=== PATIENT | female | born 1955 | race Caucasian/White ===

== ENCOUNTER 2017-12-02 04:45 | Emergency (ER) | payer MEDICAID, SELFPAY ==
[2017-12-02] VITALS (7 sets, daily range): BP systolic 203–223; BP diastolic 98–112; PULSE 59–71; RESP 16–28; TEMP 36.1; O2SAT 94–97; BMI 26.9
--- NOTE | 2017-12-02 05:06 | EKG12_ITS ---
Test Reason : SOB Blood Pressure : / mmHG Vent. Rate : 062 BPM Atrial Rate : 062 BPM P-R Int : 164 ms QRS Dur : 082 ms QT Int : 434 ms P-R-T Axes : 039 061 062 degrees QTc Int : 440 ms Normal sinus rhythm Normal ECG Confirmed by AFIA KULKARNI, SHERIF ([id number]), senior editor ALKA HARTMAN ([id number]) on 12/05/2017 1:46:09 PM Referred By: MARJAN Confirmed By:SHERIF OREILLY MD
--- NOTE | 2017-12-02 05:11 | ED.VISSUMM ---
- ER Visit Summary Date of Service: 12/02/17 Chief Complaint: Shortness of breath History of Present Illness: The patient is a 62 F longtime smoking history. Since her last week she has been short of breath worse in the last 2 days. Denies any specific cough, fever or significant chest pain. No hemoptysis. No leg pain or swelling. She denies any history of COPD. She is not on O2. Physical Examination: Well-appearing older female. Vital signs blood pressure significantly elevated at 223/111. Otherwise vital signs are stable afebrile her pulse ox is 94% room air no signs of hypoxia. H EENT exam unremarkable. Neck nontender no JVD no lymphadenopathy. Lungs coarse breath sounds bilaterally. No rales or rhonchi. Few scattered wheezes. Prolonged respiratory phase. Heart regular rate and rhythm no murmur rate about 70. Abdomen soft and nontender. Normal bowel sounds no peritoneal signs. She is moving all 4 extremities. Calves are nontender without edema or cords. Neurologically she is awake alert no focal motor deficits moving all her extremities. Test Results: Chest x-ray shows chronic changes but no acute process. Normal cardiac silhouette and mediastinum. CBC normal. BMP shows a sodium 128 she has had low sodiums before. Otherwise unremarkable. Troponin normal. EKG sinus rhythm rate is 62 with no acute signs of CA or ischemia. Emergency Department Course and Treatment: Patient complaint dyspnea for approximately a week. Denies diagnoses for probably has underlying COPD from long-term smoking history. She will undergo cardiac evaluation along with a chest x-ray. She also received aerosols and prednisone and be reassessed. On repeat exam at 06 43 she is doing and feeling much better. She stated the aerosol helped her tremendously. Treatment Plan: Patient be discharged to home. I did explain to her with her long-term smoking history I suspect she has some underlying COPD that has never been diagnosed. She replaced on prednisone 40 mg a day for 7 days. She was given a dose here in the emergency department. Plus a Proventil inhaler as needed. She knows return if worse. Otherwise follow-up with her primary care physician. She also be written for nicotine patches to try to help her stop smoking. Disposition: Discharge Impression: Acute dyspnea secondary to new onset COPD Tobacco abuse Acute on chronic hypertension This note was generated with [employer] software. It may contain incorrect words, spelling, and punctuation that were not noted in review of the chart prior to signing ED Disposition - Plan for ED Patient: Chief Complaint: Shortness of Breath Referrals: Nate Gray MD [Primary Care Provider] -
[2017-12-02] MEDS: Albuterol 2.5 MG/3 ML VIAL.NEB. INHALATION (05:14)
[2017-12-02] MEDS: Ipratropium/Albuterol Sulfate 3 ML AMPUL.NEB INHALATION (05:14)
--- NOTE | 2017-12-02 05:35 | RAD_ITS ---
STUDY: X-RAY CHEST REASON FOR EXAM: Female, 62 years old. Shortness of breath for one week. TECHNIQUE: Frontal and lateral views of the chest. COMPARISON: None. FINDINGS: There is hyperinflation of the lungs consistent with chronic obstructive lung disease (COPD). There is no demonstrated pulmonary infiltrate. There is no demonstrated pleural abnormality. Normal size heart. Normal mediastinum and trisha. Normal visualized pulmonary arteries. There is atherosclerotic calcification of the aortic arch with tortuosity. There are diffuse degenerative changes of the visualized thoracic spine. Normal visualized ribs, clavicles, and shoulders. There is no demonstrated abnormality of the visualized soft tissue structures of the upper abdomen. RAD/Chest PA and Lateral IMPRESSION: Hyperexpansion of the lungs, suggesting COPD. No evidence for acute cardiopulmonary pathology. Electronically Signed: Erick Martinez MD at 6:28 EST , Service support ,
[2017-12-02 05:44] LABS: Absolute Lymphocyte Count 2.32 X10^3/ul (0.83-4.51); Absolute Neutrophil Count 6.1 X10^3/uL (2.0-7.7); Basophil# 0.03 X10^3/uL; Basophil% 0.3 % (0-1); Eosinophil# 0.28 X10^3/uL; Eosinophils% 2.8 % (0-5); Hematocrit 40.7 % (37-47); Hemoglobin 13.9 g/dl (12.0-15.0); Lymphocyte # 2.32 X10^3/ul (4.0); Lymphocyte % 23.6 % (19-41); Mean Corp Hgb Conc 34.2 g/gl (32-36); Mean Corpuscular Hgb 32.4 pg (27.0-32.0); Mean Corpuscular Volume 94.9 fL (81-99); Mean Platelet Vol. 9.7 fl (6.2-12.0); Monocyte# 1.06 X10^3/uL; Monocyte% 10.8 % (0-10); Neutrophil # 6.13 X10^3/uL (2.7-7.7); Neutrophil % 62.4 % (47-70); Platelet Count 263 K/mm3 (150-450); RBC Distribution Width CV 13.1 % (11.6-14.6); RBC Distribution Width SD 45.5 fl (35.1-43.9); Red Blood Count 4.29 M/mm3 (4.2-5.4); White Blood Count 9.8 K/mm3 (4.4-11.0)
[2017-12-02 05:47] LABS: POSITIVE COUNT NO; POSITIVE DIFFERENTIAL NO; POSITIVE MORPHOLOGY NO
[2017-12-02 06:09] LABS: Anion Gap 8 (5-15); BUN 7 mg/dL (7-18); BUN/Creat Ratio 11.6 RATIO (10-20); Calcium,Total 8.5 mg/dL (8.5-10.1); Chloride 91 mmol/L (98-107); Creatinine, Serum 0.61 mg/dL (0.55-1.02); EST Glomerular Filtration Rate 106 mL/min (>60); Est Glom Filt Rate - Afr Amer 129 mL/min (>60); Estimated Creatinine Clearance 68.69 ml/min; Glucose 113 mg/dL (74-106); Potassium 4.6 mmol/L (3.5-5.1); Sodium Level 128 mmol/L (136-145)
--- NOTE | 2017-12-02 06:51 | ED.DEP ---
ED Disposition - Plan for ED Patient: Disposition: Home or Assisted Living Chief Complaint: Shortness of Breath Instructions: ED COPD Flare Prescriptions: Albuterol Sulfate [Proventil Hfa] 6.7 gm IH Q2H PRN PRN #1 [id number] PRN Reason: Wheezing Nicotine [Nicotine Patch] 1 ea TD PRN PRN #20 patch.[id number] PRN Reason: Smoking Cessation Prednisone [Deltasone] 40 mg PO DAILY 7 Days tab Referrals: Nate Gray MD [Primary Care Provider] - 3-5 Days if not improving Additional Instructions: Absolutely need to stop smoking. This will help your breathing. You have early signs of COPD or chronic obstructive pulmonary disease. This should improve if you stop smoking. Prednisone 40 mg a day for the next 7 days to help the inflammation in your lungs and is to improve your breathing. Also 1-2 puffs on your inhaler as needed. Return to the ER if you are feeling worse or follow-up your primary care physician as needed.
== END 2017-12-02 07:05 | disposition home or self-care (01) ==
PROVIDERS: Emergency Provider Emergency Medicine; Family Provider Internal Medicine; PCP Internal Medicine
DX: J44.1 Chronic obstructive pulmonary disease with (acute) exacerbation (principal); I73.9 Peripheral vascular disease, unspecified; I10 Essential (primary) hypertension; F17.200 Nicotine dependence, unspecified, uncomplicated; Z79.899 Other long term (current) drug therapy
CPT/HCPCS: 71046; 80048; 84484; 85025; 93005; 94640; 99284

== ENCOUNTER 2019-05-28 21:46 | Emergency (ER) | payer MEDICAID, SELFPAY ==
[2019-05-28 21:46] VITALS: BP 164/106; PULSE 109; RESP 16; TEMP 36.8; O2SAT 97; BMI 24.0
--- NOTE | 2019-05-28 21:52 | EKG12_ITS ---
Test Reason : SOB Blood Pressure : / mmHG Vent. Rate : 108 BPM Atrial Rate : 108 BPM P-R Int : 158 ms QRS Dur : 068 ms QT Int : 310 ms P-R-T Axes : 051 062 037 degrees QTc Int : 415 ms Sinus tachycardia Possible Left atrial enlargement Borderline ECG Confirmed by GIL TAPIA ([id number]), continuity editor ANNEL QUIROS ([id number]) on 06/02/2019 1:42:28 PM Referred By: MARJAN Confirmed By:GIL TAPIA
--- NOTE | 2019-05-28 22:08 | ED.VISSUMM ---
- ER Visit Summary Date of Service: 05/28/19 Chief Complaint: Left chest and rib cage pain History of Present Illness: The patient is a 64 F history of COPD and had broken ribs from trauma from a fall in January and developed a pneumothorax had to be intubated and was treated at [facility] in [place]. Patient states she woke up this morning she had left-sided chest pain primarily the lower ribs and upper abdomen and felt like she may have collapsed her lung again. She denies any fevers. No DVT or PE history. No hemoptysis. No significant cough. Worse with movement or breathing. Physical Examination: Vital signs are stable she is afebrile. She does not look septic or toxic. Her pulse ox is 97% on room air. She is not hypoxic. H EENT exam unremarkable. Moist week's membranes. Neck nontender no JVD no lymphadenopathy. Lungs shallow respirations bilaterally. But no appreciated rales rhonchi or wheezing. Heart regular rhythm rate about 100 no murmur. Chest wall there is diaphoresis, shortness of breath left lower rib cage tenderness but no ecchymosis or bruising. No subcu air crepitance. Abdomen soft mild left upper quadrant tenderness. No rebound or guarding. No rigidity. No signs of obstruction. No hernia or mass. No pulsatile mass. Sounds. Patient moving all 4 extremities. Is equal symmetrical radial pulses. 5-5 chauffeur strength. Dorsi plantarflexion intact. Calves are nontender without edema or cords. Logically she is awake alert with no focal motor deficits. Test Results: Chest x-ray shows old left-sided rib fractures but no acute process. No pneumonia or pneumothorax. Normal cardiac silhouette. EKG is a sinus tachycardia rate of 108 with no acute signs of SC or ischemia. No acute change from prior EKGs. CBC shows a white count of 13. Hemoglobin 12. No bands. Electrolytes show sodium 126. Resection of the creatinine. Liver lipase normal. Troponin normal. Emergency Department Course and Treatment: Pt. with atypical left-sided chest and upper abdominal pain that she awoke with this morning. Diffuse differential diagnosis including things such as a pneumothorax cirrhosis, cardiac or respiratory etiology or even upper abdominal pathology. Treated with morphine and Zofran for pain. Repeat exam at 2319 PM patient still complaining of chest and upper abd pain. This does not appear to be cardiac in nature. I think less likely but potentially could be a PE. The abdominal right she is had no recent falls or trauma to her abdomen. I am going to obtain CT scan of the cheat abd abdomen / pelvis. Pt will be checked out to overnight physician. If she is doing well and those are negative she can be comfortably discharged home more than likely. Treatment Plan: [] Disposition: Pending CAT scan results. Impression: Dyspnea, chest pain abdominal pain of uncertain etiology. Further test pending This note was generated with [employer] dictation software. It may contain incorrect words, spelling, and punctuation that were not noted in review of the chart prior to signing ED Disposition - Plan for ED Patient: Referrals: Nate Gray MD [Primary Care Provider] -
[2019-05-28] MEDS: Ondansetron 4 MG/2 ML Vial IV (22:16)
[2019-05-28] MEDS: morphine 8 MG/ML Syringe 6 MG IV (22:16)
[2019-05-28 22:18] LABS: Absolute Lymphocyte Count 3.97 X10^3/uL (0.83-4.51); Absolute Neutrophil Count 8.2 X10^3/uL (2.0-7.7); Basophil# 0.04 X10^3/uL; Basophil% 0.3 % (0-1); Eosinophil# 0.36 X10^3/uL; Eosinophils% 2.7 % (0-5); Hematocrit 35.6 % (37-47); Hemoglobin 12.3 g/dL (12.0-15.0); Lymphocyte # 3.97 X10^3/ul (4.0); Lymphocyte % 29.5 % (19-41); Mean Corp Hgb Conc 34.6 g/dL (32-36); Mean Corpuscular Hgb 31.1 pg (27.0-32.0); Mean Corpuscular Volume 90.1 fL (81-99); Mean Platelet Vol. 9.2 fl (6.2-12.0); Monocyte# 0.87 X10^3/uL; Monocyte% 6.5 % (0-10); NRBC Flagged by Analyzer 0 % (0-5); Neutrophil # 8.17 X10^3/uL (2.7-7.7); Neutrophil % 60.6 % (47-70); Platelet Count 291 K/mm3 (150-450); RBC Distribution Width SD 50.4 fl (35.1-43.9); Red Blood Count 3.95 M/mm3 (4.2-5.4); White Blood Count 13.5 K/mm3 (4.4-11.0)
--- NOTE | 2019-05-28 22:20 | RAD_ITS ---
STUDY: X-RAY CHEST REASON FOR EXAM: Female, 64 years old. Chest pain and shortness of breath TECHNIQUE: PA and lateral COMPARISON: December 02, 2017 FINDINGS: The lungs are clear and expanded. There is no demonstrated pleural abnormality. Normal size heart. Normal mediastinum and trisha. Normal visualized pulmonary arteries. Tortuous mildly calcified aortic arch and descending thoracic aorta. Dorsal spine demonstrates moderate spondylosis. Normal visualized clavicles, and shoulders. Acute mildly displaced fractures of the left seventh eighth and ninth ribs There is no demonstrated abnormality of the visualized soft tissue structures of the upper abdomen. RAD/Chest PA and Lateral IMPRESSION: Acute mildly displaced fractures of the left seventh through ninth ribs without associated pneumothorax Electronically Signed: Kris Oneill MD at 22:33 EDT , Service support ,
[2019-05-28 22:30] VITALS: O2SAT 98
[2019-05-28 22:40] LABS: AST(SGOT) 13 U/L (15-37); Alanine Aminotransfer ALT/SGPT 19 U/L (13-56); Albumin, Serum 4.2 g/dL (3.2-5.0); Alkaline Phosphatase 97 U/L (45-117); Anion Gap 6 (5-15); BUN 19 mg/dL (7-18); BUN/Creat Ratio 18.8 RATIO (10-20); Bilirubin, Direct 0.07 mg/dL (0.00-0.30); Calcium,Total 8.3 mg/dL (8.5-10.1); Chloride 94 mmol/L (98-107); Creatinine, Serum 1.01 mg/dL (0.55-1.02); EST Glomerular Filtration Rate 59 mL/min (>60); Est Glom Filt Rate - Afr Amer 71 mL/min (>60); Estimated Creatinine Clearance 44.51 ml/min; Globulin 3.2 g/dL (2.2-4.2); Glucose 89 mg/dL (74-106); Lipase 221 U/L (73-393); Potassium 4.1 mmol/L (3.5-5.1); Protein, Total 7.4 g/dL (6.4-8.2); Sodium Level 126 mmol/L (136-145)
[2019-05-28] MEDS: Ipratropium/Albuterol Sulfate 3 ML AMPUL.NEB INHALATION (22:42)
[2019-05-28 22:43] VITALS: PULSE 92; RESP 18
[2019-05-28 23:06] VITALS: BP 120/78; PULSE 77; RESP 16; O2SAT 97
[2019-05-28 23:10] VITALS: BP 107/71; PULSE 91; RESP 17; O2SAT 94
--- NOTE | 2019-05-28 23:18 | CT_ITS ---
HISTORY: ABD PAIN, CP, DYSPNEA EXAMINATION: CTA Chest W IV Contrast TECHNIQUE: Helically acquired images were obtained of the chest following IV contrast as per pulmonary angiogram protocol with 3D reconstructions. A radiation dose optimization technique was used for this scan. IV Contrast dosage and agent: 100 Isovue 370 COMPARISON: 2 view chest 05/28/2019 FINDINGS: The main, segmental, and visualized subsegmental pulmonary arteries show normal opacification and appearance. No PE. Thoracic aorta is atherosclerotic and normal in caliber without evidence of aneurysm or dissection. No pericardial effusion. No lymphadenopathy. Mild centrilobular emphysema. Lingular segment minor atelectasis or scarring. Bibasilar mild pleural parenchymal scarring, worse on the left. No pulmonary consolidation. No pleural effusion. No pneumothorax. Bones: Mildly displaced fractures of the axillary left seventh through 11th ribs. Abdomen: Large subcapsular splenic hematoma together with small free fluid within the abdomen in keeping with hemoperitoneum related to splenic injury. CT/CTA Chest W/WO Contrast IMPRESSION: 1. Fracture of the axillary left seventh through 11th ribs with large subcapsular splenic hematoma together with small free abdominal fluid compatible with hemoperitoneum related to splenic injury. 2. No pneumothorax or pleural fluid collection. No PE or thoracic aortic injury. 3. Mild centrilobular emphysema. Lingular segment and bibasilar mild scarring. Individualized dose optimization techniques were used for this CT. at 0031 Reported and signed by: Farzad Westfall MD Electronically Signed: Farzad Westfall, at 0:29 EDT Tel , Service support ,
--- NOTE | 2019-05-28 23:18 | CT_ITS ---
HISTORY: ABD PAIN, CP, DYSPNEA EXAMINATION: CT Abdomen And Pelvis W/ Contrast TECHNIQUE: Helically acquired images were obtained of the abdomen and pelvis following IV contrast. A radiation dose optimization technique was used for this scan. IV Contrast dosage and agent: 100 Isovue 370 Oral contrast: None. COMPARISON: 07/26/2015 FINDINGS: Lower thorax: Mildly displaced fractures of the axillary left seventh through 11th ribs. No pneumothorax or significant pleural fluid collection. Large subcapsular splenic hematoma. Small free fluid within the abdomen and pelvis compatible with hemoperitoneum related to splenic injury. No splenic laceration is visualized. Normal liver, pancreas, gallbladder, and biliary system. Both kidneys are normal in position. Bilateral renal opacification without evidence of renal parenchymal injury or suspicious renal lesion. Bilateral renal cortical cysts. Central vascular calcifications of the left kidney. The adrenal glands show no suspicious enlargement. Abdominal aorta is diffusely atherosclerotic as normal in caliber. No retroperitoneal lymph node enlargement. GI tract: No obstruction. No pneumoperitoneum. Pelvis: Small free pelvic fluid compatible with hemoperitoneum. Poor distention of the urinary bladder. Bones: Separate from the left ribs, no fracture seen. Normal lumbar vertebral alignment. Ventral abdominal Wall: Previous ventral wall hernia repair with graft and multiple metallic tacks in place. No recurrent hernia seen. CT/Abdomen/Pelvis W IV Cont ONLY IMPRESSION: 1. Mildly displaced fractures of the axillary left seventh through 11th ribs with large subcapsular splenic hematoma together with small free fluid within the abdomen and pelvis compatible with hemoperitoneum. 2. No additional major organ injury seen. No pneumoperitoneum or pneumothorax. 3. Ventral wall hernia repair and additional chronic changes, as above. Comment: Abnormal CT findings telephoned to Dr. Stockton emergency room physician upon exam completion. Individualized dose optimization techniques were used for this CT. at 0046 Reported and signed by: Farzad Westfall MD N.B. : The above information has been verbally conveyed by Farzad Westfall to Dr. Kath MD, on 05/29/2019 00:44:46 (ET). Electronically Signed: Farzad Khoi, at 0:45 EDT Tel , Service support ,
[2019-05-28] MEDS: 0.9% Normal Saline 1,000 ML 999 ML IV (23:59)
[2019-05-29] MEDS: Morphine 4 MG/ML Syringe IV (00:01)
[2019-05-29 01:39] VITALS: BP 99/81; PULSE 81; RESP 21; O2SAT 97
[2019-05-29] MEDS: fentaNYL 100 MCG/2 ML Ampul 50 MCG IV (01:40)
== END 2019-05-29 01:58 | disposition short-term general hospital (02) ==
PROVIDERS: Emergency Medicine; Emergency Provider Emergency Medicine; Family Provider Internal Medicine; PCP Internal Medicine
DX: D73.5 Infarction of spleen (principal); K66.1 Hemoperitoneum; J44.9 Chronic obstructive pulmonary disease, unspecified; Z79.899 Other long term (current) drug therapy; Z72.0 Tobacco use
CPT/HCPCS: 71046; 71275; 74177; 80048; 80076; 83690; 84484; 85025; 93005; 94640; 96361; 96374; 96375; 96376; 99285; J7030; Q9967; A4216; J2405

== ENCOUNTER 2019-06-06 10:45 | Emergency (ER) | payer MEDICAID, SELFPAY ==
[2019-06-06 10:47] VITALS: BP 177/118; PULSE 111; RESP 23; TEMP 36.5; O2SAT 95; BMI 26.3
[2019-06-06 11:00] VITALS: BP 176/102; PULSE 112; RESP 21; O2SAT 94
--- NOTE | 2019-06-06 11:05 | CT_ITS ---
STUDY: CT ABDOMEN AND PELVIS WITHOUT CONTRAST REASON FOR EXAM: Female, 64 years old. Left upper quadrant pain. History of prior multiple abdominal surgeries. RADIATION DOSAGE (If Supplied By Facility): CTDIvol = ( 7.04 ) mGy, DLP = ( 337.67 ) mGycm TECHNIQUE: Transaxial images were obtained from the dome of the diaphragm to the symphysis pubis without oral contrast, and without intravenous contrast. Sagittal and coronal images were reconstructed. Individualized dose optimization techniques were used for this CT. COMPARISON: Comparison is made with prior study dated May 28, 2019. FINDINGS: There are new small bilateral pleural effusions with bibasilar atelectasis and/or infiltrate worse on the right side. Small pericardial effusion. Coronary artery calcification. Normal liver. Normal gallbladder and extrahepatic biliary system. There is moderate splenomegaly. Findings is suggestive of large perisplenic hematoma although without intravenous contrast ministration it is difficult to assess. The spleen is larger in size as compared to prior study. There is compression of the stomach. There appears to be metallic embolic material within the splenic vein. Clinical correlation is recommended. Normal pancreas. Normal bilateral adrenal glands. Normal right kidney. Normal left kidney. Normal visualized stomach. Normal small intestine. Normal colon. There are surgical clips in the region of the appendix consistent with a prior appendectomy. There is diffuse atherosclerotic calcification of the abdominal aorta, without a demonstrated aneurysm. Normal inferior vena cava. Normal retroperitoneum. Normal urinary bladder. There appears to be a moderate amount blood within the pelvis. This has increased as compared to prior study. There is evidence of prior anterior abdominal wall hernia repair with a large mesh. There are degenerative changes of the visualized lumbar spine. Stable nondisplaced fractures of the left seventh through 11th ribs. CT/Abdomen/Pelvis without Cont IMPRESSION: Findings suggestive of progressive splenic hematoma and possible laceration of the spleen although without intravenous contrast ministration, this is difficult to assess. Findings suggestive of a metallic embolization material within the splenic vein. Moderate amount of blood in the pelvis. Electronically Signed: Deondre Garcia, at 12:45 EDT , Service support ,
--- NOTE | 2019-06-06 11:06 | ED.DCSUM_ITS ---
- ER Visit Summary Date of Service: 06/06/19 Chief Complaint: Left upper quadrant abdominal pain History of Present Illness: The patient is a 64 F who has left upper quadrant abdominal pain. The patient was discharged from [facility] 2 days ago after staying 1 week after finding she had a splenic hematoma. She had coiling done at that time. She was given 4 units of blood there due to anemia. She continues to have pain in the left upper quadrant. Nothing makes it better or worse. Denies any new trauma. She does admit to a decreased appetite. Denies nausea, vomiting or diarrhea. No urinary symptoms. She declined any pain medications going home so she has not taken anything. Physical Examination: Vital signs reviewed. HEENT exam unremarkable. Heart is regular rate and rhythm without murmurs. Lungs are clear to auscultation. Abdomen is soft with tenderness in the left upper quadrant. There is no guarding or rebound tenderness. Extremities reveal no edema. Skin exam normal. Neurologic exam normal. Test Results: EKG is sinus tachycardia with a rate of 115. PVCs noted. There are nonspecific ST and T wave changes. Hemoglobin is 10.3, AST 48. CAT scan reveals a perisplenic hematoma status post coiling. Emergency Department Course and Treatment: The patient's hemoglobin 2 days ago when she left [facility] was 8.5. The CAT scan did remark that the hematoma does appear slightly bigger, but I do not see any active bleeding. This in combination with her rising hemoglobin leads me to believe that she has no active bleeding. She is hemodynamically stable. I feel that she is safe for discharge. She has Tylenol and tramadol that she can take at home. She will follow-up with her doctors at [facility]. Treatment Plan: [] Disposition: Discharge Impression: Splenic hematoma, subsequent visit This note was generated with [employer] dictation software. It may contain incorrect words, spelling, and punctuation that were not noted in review of the chart prior to signing ED Disposition - Plan for ED Patient: Referrals: Nate Gray MD [Primary Care Provider] -
[2019-06-06] MEDS: fentaNYL 100 MCG/2 ML Ampul 50 MCG IV (11:14)
[2019-06-06 11:30] LABS: Absolute Lymphocyte Count 1.75 X10^3/uL (0.83-4.51); Absolute Neutrophil Count 9.3 X10^3/uL (2.0-7.7); Basophil# 0.05 X10^3/uL; Basophil% 0.4 % (0-1); Eosinophils% 2.3 % (0-5); Hematocrit 31.5 % (37-47); Hemoglobin 10.3 g/dL (12.0-15.0); Lymphocyte # 1.75 X10^3/ul (4.0); Lymphocyte % 13.5 % (19-41); Mean Corp Hgb Conc 32.7 g/dL (32-36); Mean Corpuscular Hgb 29.9 pg (27.0-32.0); Mean Corpuscular Volume 91.6 fL (81-99); Mean Platelet Vol. 8.5 fl (6.2-12.0); Monocyte# 1.41 X10^3/uL; Monocyte% 10.9 % (0-10); NRBC Flagged by Analyzer 0.2 % (0-5); Neutrophil # 9.31 X10^3/uL (2.7-7.7); Neutrophil % 72.1 % (47-70); Platelet Count 632 K/mm3 (150-450); RBC Distribution Width CV 15.9 % (11.6-14.6); RBC Distribution Width SD 52.5 fl (35.1-43.9); Red Blood Count 3.44 M/mm3 (4.2-5.4); White Blood Count 12.9 K/mm3 (4.4-11.0)
[2019-06-06 11:45] LABS: ALB/GLOB Ratio 0.8 RATIO (0.9-2.4); AST(SGOT) 48 U/L (15-37); Alanine Aminotransfer ALT/SGPT 34 U/L (13-56); Albumin, Serum 3.3 g/dL (3.2-5.0); Alkaline Phosphatase 104 U/L (45-117); Anion Gap 8 (5-15); BUN 9 mg/dL (7-18); BUN/Creat Ratio 12.8 RATIO (10-20); Chloride 101 mmol/L (98-107); EST Glomerular Filtration Rate 89 mL/min (>60); Est Glom Filt Rate - Afr Amer 108 mL/min (>60); Estimated Creatinine Clearance 58.32 ml/min; Globulin 4.2 g/dL (2.2-4.2); Glucose 95 mg/dL (74-106); Potassium 3.9 mmol/L (3.5-5.1); Protein, Total 7.5 g/dL (6.4-8.2); Sodium Level 136 mmol/L (136-145)
[2019-06-06] MEDS: Morphine 4 MG/ML Syringe IV (12:17)
[2019-06-06 12:23] VITALS: PULSE 109; RESP 22
[2019-06-06] MEDS: Ipratropium 0.5 MG/2.5 ML SOLUTION INHALATION (12:23)
[2019-06-06 12:35] VITALS: BP 160/102; PULSE 107; RESP 28; O2SAT 93
--- NOTE | 2019-06-06 13:04 | ED.DEP ---
ED Disposition - Plan for ED Patient: Disposition: Home or Assisted Living Instructions: Hematoma Referrals: Nate Gray MD [Primary Care Provider] -
[2019-06-06 13:11] VITALS: BP 140/105; PULSE 107; RESP 22; O2SAT 93
== END 2019-06-06 13:12 | disposition home or self-care (01) ==
PROVIDERS: Emergency Provider Emergency Medicine; Family Provider Internal Medicine; PCP Internal Medicine
DX: S36.029D Unspecified contusion of spleen, subsequent encounter (principal); X58.XXXD Exposure to other specified factors, subsequent encounter; I49.3 Ventricular premature depolarization; K21.9 Gastro-esophageal reflux disease without esophagitis; I10 Essential (primary) hypertension; E78.00 Pure hypercholesterolemia, unspecified; Z86.2 Personal history of diseases of the blood and blood-forming organs and certain disorders involving the immune mechanism; Z79.899 Other long term (current) drug therapy; Z72.0 Tobacco use
CPT/HCPCS: 74176; 80053; 85025; 86850; 86900; 86901; 93005; 94640; 96374; 96375; 99284

== ENCOUNTER 2019-06-10 10:48 | Emergency (ER) | payer MEDICAID, SELFPAY ==
[2019-06-10 10:49] VITALS: BP 169/83; PULSE 113; RESP 20; TEMP 36.6; O2SAT 96; BMI 26.4
[2019-06-10 10:51] VITALS: BP 153/68; PULSE 107; RESP 18; TEMP 37.2; O2SAT 96
--- NOTE | 2019-06-10 10:58 | CT_ITS ---
STUDY: CT ABDOMEN AND PELVIS WITH CONTRAST REASON FOR EXAM: Female, 64 years old. Left-sided abdominal pain. RADIATION DOSAGE (If Supplied By Facility): CTDIvol = ( 11.52 ) mGy, DLP = ( 630.18 ) mGycm TECHNIQUE: Transaxial images were obtained from the dome of the diaphragm to the symphysis pubis without oral contrast. 100cc IV Isovue 300 was administered. Sagittal and coronal images were reconstructed. Individualized dose optimization techniques were used for this CT. COMPARISON: Comparison is made with prior examination of June 06, 2019. FINDINGS: Minimal bilateral pleural effusions with underlying infiltration and/or atelectasis. Small pericardial effusion. Stable nondisplaced left seventh through 11th rib fractures. This is unchanged. Coronary artery calcification. Normal liver. The gallbladder is distended. Findings in keeping with a large subacute perisplenic hematoma. There is a 2.9 cm x 1.7 cm cystic density in the inferior pole of the spleen. Metallic embolic coils are seen in the splenic vein. Normal pancreas. Normal bilateral adrenal glands. Normal right kidney. 2.3 cm cyst in the superior aspect of the left kidney. Normal visualized stomach. Normal small intestine. Diffuse colonic diverticulosis. The appendix is visualized and appears normal. There is diffuse atherosclerotic calcification of the abdominal aorta, without a demonstrated aneurysm. Normal inferior vena cava. Normal retroperitoneum. Normal urinary bladder. Dense fluid is seen in the pelvis suggestive of a possible blood in the pelvis. This is unchanged. There is evidence of a prior anterior abdominal wall hernia repair with mesh seen. There are diffuse degenerative changes of the visualized lumbar spine. CT/Abdomen/Pelvis W IV Cont ONLY IMPRESSION: Essentially stable examination. Electronically Signed: Deondre Garcia, at 12:30 EDT , Service support ,
--- NOTE | 2019-06-10 10:59 | ED.VIS.GEN ---
History of Present Illness Chief Complaint: Abd Pain Informant: Patient Onset: Yesterday Context: Gradual Onset Timing: Continuous Current Severity: Moderate Maximum Severity: Severe Narrative: The patient presents to the emergency department with left flank pain. The patient does have a complex medical history. She was recently found to have a splenic laceration and splenic hematoma. She was transferred to [facility]. She underwent coil embolization. She was discharged home. She states over the past 2 days, her pain is just worsened. She states that no matter which when she moves, she cannot get comfortable. She is been taking tramadol with little improvement. She denies being short of breath. She denies any fevers or chills. She denies any other systemic symptoms. She is not on anticoagulants. Prior similar symptoms: Yes Recent Illness/Hospitalization: No Past Medical History - Allergies and Home Meds Allergies/Adverse Reactions: Allergies amlodipine Allergy (Verified 06/10/19 10:52) Unknown clonidine Allergy (Verified 06/10/19 10:52) Unknown codeine Adverse Reaction (Verified 06/10/19 10:52) Nausea Primary Care Physician: Nate Gray MD [Primary Care Provider] - Prior records reviewed: Yes Past Medical History: - Surgical History: - - sigmoid colectomy with splenic flexure mobilization and ileostomy creation November 11, 2005. Colonoscopy with dilation of anastomosis April 17, 2006. Ileostomy takedown-September 21, 2006. Repair of ventral hernia July 22, 2007, hernia repair Smoking Status: Current every day smoker Alcohol: None Drugs: None - Family History Paternal Family History: Reports: No pertinent history Maternal Family History: Reports: No pertinent history Review of Systems General: Denies: Chills, Fever, Sweats Eyes: Denies: Visual changes - bilaterally, Diplopia ENT: Denies: Rhinorrhea, Sore throat Cardiovascular: Denies: Chest pain, Palpitations Respiratory: Denies: Dyspnea, Cough, Dyspnea on exertion Gastrointestinal: Reports: Abdominal pain. Denies: Nausea, Vomiting, Diarrhea, Melena, Hematochezia Genitourinary: Denies: Dysuria, Hematuria, Frequency Musculoskeletal: Denies: Back pain, Extremity Pain Skin: Denies: Rash, Wounds Neurological: Denies: Headache, Weakness, Numbness Physical Exam Vital Signs/Narrative: Vital Signs Temp Pulse Resp BP Pulse Ox 06/10/19 10:49 98 F 113 H 20 H 169/83 H 96 Inital Vital Signs reviewed: Yes General: Well nourished, Well developed, No Acute Distress Head: Normocephalic, Atraumatic Eyes: Perrl, EOMI ENT: Moist mucous membranes, No rhinorrhea Neck: Supple, Nontender Cardiovascular: Regular rate, Regular rhythm, No murmurs Respiratory: No distress, CTA bilaterally, Chest nontender Abdomen: Soft, Nondistended, Normal bowel sounds, Tender. Negative for: Guarding, Rebound tenderness Back: Nontender, Normal Inspection Extremities: Nontender, No edema Skin: Normal color, No rash Neurological: Alert, Oriented x3, Cranial nerves II-XII grossly intact, Normal Strength, Normal Sensation Psychological: Normal affect, Normal Mood Diagnostic/Tx/Re-eval Clinical Impression(s) from Imaging Studies Abdomen/Pelvis CT 06/10/19 10:58 IMPRESSION: Essentially stable examination. Electronically Signed: Deondre Jenniferkathiepoornima, at 12:30 EDT , Service support , Abnormal Lab Results 06/10/19 06/10/19 11:05 11:05 WBC 15.8 H RBC 3.68 L Hgb 11.0 L Hct 33.6 L MCV 91.3 MCH 29.9 MCHC 32.7 RDW Std Deviation 51.8 H RDW Coeff of Renea 15.7 H Plt Count 787 H* MPV 8.4 Immature Gran % (Auto) 0.400 Neut % (Auto) 77.2 H Lymph % (Auto) 13.8 L [place] % (Auto) 6.3 Eos % (Auto) 1.8 Baso % (Auto) 0.5 Absolute Neuts (auto) 12.2 H Absolute Lymphs (auto) 2.18 Nucleated RBC % 0 Diff Path Review May foll Platelet Estimate MOD INC Polychromasia RARE Anisocytosis 1+ Spherocytes RARE H Target Cells 1+ Sodium 134 L Potassium 4.6 Chloride 103 Carbon Dioxide 26.0 Anion Gap 5 BUN 13 Creatinine 0.88 Estim Creat Clear Calc 46.39 Est GFR (MDRD) Af Amer 83 Est GFR (MDRD) Non-Af 68 BUN/Creatinine Ratio 14.7 Glucose 92 Calcium 9.5 Total Bilirubin 0.60 AST 29 ALT 50 Alkaline Phosphatase 149 H Total Protein 8.1 Albumin 3.3 Globulin 4.8 H Albumin/Globulin Ratio 0.7 L Lipase 229 - Medical Decision Making The patient presents with worsening pain in her left upper quadrant of her back. She denies any fever or chills. I did want to rule out rebleed given her recent splenic hematoma and coiling. The patient underwent CT imaging. This is basically unchanged. There is no evidence of abscess. There is no evidence of active bleeding. Her hemoglobin is stabilized. Her major complaint is pain. Her pain will be addressed as an outpatient. At this point, I do feel that she is safe for outpatient therapy. She does have follow-up in place with her surgeon. She will be discharged home. Discharge 1. Splenic hematoma ED Disposition - Plan for ED Patient: Instructions: ABDOMINAL TRAUMA, Blunt (benign) Prescriptions: Oxycodone HCl/Acetaminophen [Percocet 5/325] 1 tab PO Q6H PRN PRN 3 Days #12 tab PRN Reason: Pain Prescription Printed Ondansetron [Zofran Odt] 4 mg PO Q8H PRN PRN #10 tab PRN Reason: Nausea Prescription Printed Referrals: Nate Gray MD [Primary Care Provider] -
[2019-06-10] MEDS: 0.9% Normal Saline 1,000 ML 1000 ML IV (11:10)
[2019-06-10] MEDS: Ondansetron 4 MG/2 ML Vial IV (11:11)
[2019-06-10] MEDS: Morphine 4 MG/ML Syringe IV (11:11)
[2019-06-10 11:15] LABS: Absolute Lymphocyte Count 2.18 X10^3/uL (0.83-4.51); Absolute Neutrophil Count 12.2 X10^3/uL (2.0-7.7); Basophil# 0.08 X10^3/uL; Basophil% 0.5 % (0-1); Eosinophil# 0.28 X10^3/uL; Eosinophils% 1.8 % (0-5); Hematocrit 33.6 % (37-47); Lymphocyte # 2.18 X10^3/ul (4.0); Lymphocyte % 13.8 % (19-41); Mean Corp Hgb Conc 32.7 g/dL (32-36); Mean Corpuscular Hgb 29.9 pg (27.0-32.0); Mean Corpuscular Volume 91.3 fL (81-99); Mean Platelet Vol. 8.4 fl (6.2-12.0); Monocyte% 6.3 % (0-10); NRBC Flagged by Analyzer 0 % (0-5); Neutrophil # 12.23 X10^3/uL (2.7-7.7); Neutrophil % 77.2 % (47-70); POSITIVE COUNT YES; RBC Distribution Width CV 15.7 % (11.6-14.6); RBC Distribution Width SD 51.8 fl (35.1-43.9); Red Blood Count 3.68 M/mm3 (4.2-5.4); White Blood Count 15.8 K/mm3 (4.4-11.0)
[2019-06-10 11:16] LABS: Differential Indicated SCAN CRITERIA MET
[2019-06-10 11:22] LABS: Platelet Count 787 K/mm3 (150-450)
--- NOTE | 2019-06-10 11:22 | ED.RN ---
PLT [id number] CALLED FROM [address] LAB. DR HAMPTON AWARE
[2019-06-10 11:29] LABS: ALB/GLOB Ratio 0.7 RATIO (0.9-2.4); AST(SGOT) 29 U/L (15-37); Alanine Aminotransfer ALT/SGPT 50 U/L (13-56); Albumin, Serum 3.3 g/dL (3.2-5.0); Alkaline Phosphatase 149 U/L (45-117); Anion Gap 5 (5-15); BUN 13 mg/dL (7-18); BUN/Creat Ratio 14.7 RATIO (10-20); Calcium,Total 9.5 mg/dL (8.5-10.1); Chloride 103 mmol/L (98-107); Creatinine, Serum 0.88 mg/dL (0.55-1.02); EST Glomerular Filtration Rate 68 mL/min (>60); Est Glom Filt Rate - Afr Amer 83 mL/min (>60); Estimated Creatinine Clearance 46.39 ml/min; Globulin 4.8 g/dL (2.2-4.2); Glucose 92 mg/dL (74-106); Lipase 229 U/L (73-393); Potassium 4.6 mmol/L (3.5-5.1); Protein, Total 8.1 g/dL (6.4-8.2); Sodium Level 134 mmol/L (136-145)
[2019-06-10 11:38] LABS: Anisocytosis 1+; Platelet Estimate MOD INC (ADEQ); Polychromasia RARE; Spherocyte RARE; Target Cells 1+
[2019-06-10] MEDS: HYDROmorphone 1 MG/ML Syringe IV (11:47)
[2019-06-10 13:11] VITALS: BP 145/87; PULSE 98; RESP 19; O2SAT 99
[2019-06-10 13:20] VITALS: BP 136/68; PULSE 93; RESP 18; O2SAT 99
[2019-06-11 14:46] LABS: Pathologist Review Reviewed
== END 2019-06-10 13:21 | disposition home or self-care (01) ==
LOC: ED 11:03
PROVIDERS: Emergency Provider Emergency Medicine; Family Provider Internal Medicine; PCP Internal Medicine
DX: S36.029D Unspecified contusion of spleen, subsequent encounter (principal); X58.XXXD Exposure to other specified factors, subsequent encounter; F17.200 Nicotine dependence, unspecified, uncomplicated
CPT/HCPCS: 74177; 80053; 83690; 85025; 93005; 96361; 96374; 96375; 99285; J7030; Q9967; A4216; J2405

== ENCOUNTER 2019-08-21 09:26 | Emergency (ER) | payer MEDICAID, SELFPAY ==
[2019-08-21 09:26] VITALS: BP 156/94; PULSE 109; RESP 16; TEMP 35.6; O2SAT 98; BMI 25.9
--- NOTE | 2019-08-21 09:47 | CT_ITS ---
STUDY: CT ABDOMEN AND PELVIS WITH CONTRAST REASON FOR EXAM: Female, 64 years old. Palpable abnormality overlying the incision site in the left upper quadrant. RADIATION DOSAGE (If Supplied By Facility): CTDIvol = ( 7.42 ) mGy, DLP = ( 361.63 ) mGycm TECHNIQUE: Transaxial images were obtained from the dome of the diaphragm to the symphysis pubis without oral contrast. IV 100mL Isovue-370 100 was administered. Sagittal and coronal images were reconstructed. Individualized dose optimization techniques were used for this CT. COMPARISON: Comparison is made with prior study dated June 10, 2019. FINDINGS: Linear atelectasis in the peripheral aspect of the right lower lobe. Focal pleural thickening at the left lung base. Stable nondisplaced seventh through 11th left rib fractures. Coronary artery calcifications. Normal liver. Normal gallbladder and extrahepatic biliary system. Once again, embolization coils are seen within the splenic artery. The splenic hematoma has markedly improved. There is a residual 5.5 cm x 7.4 cm predominantly fluid collection within the upper midportion of the spleen with a tiny air bubbles within it. There is evidence of soft tissue swelling and small fluid collection measuring 1.4 cm by 3.7 cm in the subcutaneous tissues most likely corresponding to the palpable abnormality. Normal pancreas. Normal bilateral adrenal glands. Normal right kidney. Stable 2.3 cm cyst in the lateral aspect of the left kidney. Normal visualized stomach. Normal small intestine. There are multiple colonic diverticula consistent with diverticulosis. The appendix is visualized and appears normal. Normal abdominal aorta. Normal inferior vena cava. Normal retroperitoneum. Normal urinary bladder. Prior anterior abdominal hernia repair with mesh. Normal abdominal wall. There are diffuse degenerative changes of the visualized lumbar spine. CT/Abdomen/Pelvis W IV Cont ONLY IMPRESSION: Almost complete resolution of the left perisplenic hematoma with a resultant 5.5 signs by 7.4 cm cystic fluid collection. Small amount of air is seen within the. Is also evidence of a focal soft tissue thickening in the subcutaneous tissues overlying the spleen. Electronically Signed: Deondre Garcia, at 11:29 EST , Service support ,
--- NOTE | 2019-08-21 09:48 | ED.DCSUM_ITS ---
History of Present Illness Chief Complaint: Wound Informant: Patient Onset: Days - 4 days Current Severity: Moderate Maximum Severity: Moderate Narrative: Patient had multiple rib fractures with a splenic laceration last spring. She was transferred to [facility] and had splenic embolization performed. For the next several months she was dealing with a splenic hematoma that did not seem to reabsorb. On July 26 patient had a procedure done to remove the hematoma and a drain was left in place. This was removed on August 07. Patient states that for the past 4 days she has noted increased pain and swe lling to the site where her drain was placed. She has not noted fever or chills. - Past Medical History (1) HLD (hyperlipidemia) Status: Chronic (2) HTN (hypertension) Status: Chronic (3) Smoker Status: Chronic Past Medical History - Allergies and Home Meds Allergies/Adverse Reactions: Allergies amlodipine Allergy (Verified 08/21/19 09:32) Unknown clonidine Allergy (Verified 08/21/19 09:32) Unknown codeine Adverse Reaction (Verified 08/21/19 09:32) Nausea Primary Care Physician: Nate Gray MD [Primary Care Provider] - Prior records reviewed: Yes Surgical History: - - sigmoid colectomy with splenic flexure mobilization and ileostomy creation November 11, 2005. Colonoscopy with dilation of anastomosis April 17, 2006. Ileostomy takedown-September 21, 2006. Repair of ventral hernia July 22, 2007, hernia repair Lives: Spouse/ Significant Other Smoking Status: Current some day smoker - Family History Paternal Family History: Reports: No pertinent history Maternal Family History: Reports: No pertinent history Review of Systems General: Denies: Chills, Fever Eyes: Denies: Visual changes - bilaterally ENT: Denies: Bilateral ear pain Cardiovascular: Denies: Chest pain Respiratory: Denies: Dyspnea, Cough Gastrointestinal: Reports: Abdominal pain. Denies: Nausea, Vomiting, Diarrhea Genitourinary: Denies: Dysuria Musculoskeletal: Denies: Extremity Pain Skin: Reports: Wounds Neurological: Denies: Headache Hematologic: Denies: Easy bruising Allergy: Denies: Uticaria Physical Exam Vital Signs/Narrative: Vital Signs Temp Pulse Resp BP Pulse Ox 08/21/19 09:26 96.1 F L 109 H 16 156/94 H 98 Inital Vital Signs reviewed: Yes General: Well nourished, Well developed ENT: Moist mucous membranes Neck: Supple Cardiovascular: Regular rate, Regular rhythm Respiratory: No distress, CTA bilaterally Abdomen: Soft, Normal bowel sounds, Tender - Mild tenderness in the left upper quadrant at site of recent drain placement. There is a palpable mass measuring approximately 2 x 4 cm. There is surrounding erythema with minimal warmth. No drainage noted at this time. Skin: Normal color - Except skin erythema around drain site as previously stated. Neurological: Alert, Oriented x3 Psychological: Normal affect Diagnostic/Tx/Re-eval Impressions Abdomen/Pelvis CT 08/21/19 09:47 IMPRESSION: Almost complete resolution of the left perisplenic hematoma with a resultant 5.5 signs by 7.4 cm cystic fluid collection. Small amount of air is seen within the. Is also evidence of a focal soft tissue thickening in the subcutaneous tissues overlying the spleen. Electronically Signed: Deondre Garcia, at 11:29 EST , Service support , 08/21/19 09:47 Abdomen/Pelvis W IV Cont ONLY [CT] Stat Laboratory Results 08/21/19 08/21/19 08/21/19 09:57 09:57 09:57 WBC 15.6 H RBC 3.71 L Hgb 10.5 L Hct 32.8 L MCV 88.4 MCH 28.3 MCHC 32.0 RDW Std Deviation 51.1 H RDW Coeff of Renea 15.7 H Plt Count 534 H MPV 9.0 Immature Gran % (Auto) 0.500 Neut % (Auto) 77.3 H Lymph % (Auto) 12.6 L [place] % (Auto) 8.0 Eos % (Auto) 1.2 Baso % (Auto) 0.4 Absolute Neuts (auto) 12.0 H Absolute Lymphs (auto) 1.96 Nucleated RBC % 0 PT 13.9 INR 1.1 APTT 32.9 Sodium 128 L Potassium 4.8 Chloride 95 L Carbon Dioxide 26.0 Anion Gap 7 BUN 11 Creatinine 0.85 Estim Creat Clear Calc 61.40 Est GFR (MDRD) Af Amer 87 Est GFR (MDRD) Non-Af 72 BUN/Creatinine Ratio 13.0 Glucose 92 Calcium 9.1 - Medical Decision Making Patient was given a dose of morphine and Zofran for pain here. I spoke with the radiologist regarding her CT results. States this would does not appear consistent density soto with an abscess. He believes the palpable mass under her skin is most likely hematoma or small seroma type fluid. Because the patient does have erythema she will be covered with a course of doxycycline. On repeat evaluation patient now thinks that the skin erythema may be secondary to using a heating pad over the area. ED Disposition - Plan for ED Patient: Disposition: Home or Assisted Living Diagnosis: Encounter for wound re-check Instructions: POST OP WOUND CHECK, General Prescriptions: Doxycycline 100 mg PO BID #20 capsule Referrals: Nate Gray MD [Primary Care Provider] - 1 Week
[2019-08-21 10:12] LABS: Absolute Lymphocyte Count 1.96 X10^3/uL (0.83-4.51); Basophil# 0.06 X10^3/uL; Basophil% 0.4 % (0-1); Eosinophil# 0.19 X10^3/uL; Eosinophils% 1.2 % (0-5); Hematocrit 32.8 % (37-47); Hemoglobin 10.5 g/dL (12.0-15.0); Lymphocyte # 1.96 X10^3/ul (4.0); Lymphocyte % 12.6 % (19-41); Mean Corpuscular Hgb 28.3 pg (27.0-32.0); Mean Corpuscular Volume 88.4 fL (81-99); Monocyte# 1.24 X10^3/uL; NRBC Flagged by Analyzer 0 % (0-5); Neutrophil # 12.02 X10^3/uL (2.7-7.7); Neutrophil % 77.3 % (47-70); Platelet Count 534 K/mm3 (150-450); RBC Distribution Width CV 15.7 % (11.6-14.6); RBC Distribution Width SD 51.1 fl (35.1-43.9); Red Blood Count 3.71 M/mm3 (4.2-5.4); White Blood Count 15.6 K/mm3 (4.4-11.0)
[2019-08-21 10:24] LABS: Anion Gap 7 (5-15); BUN 11 mg/dL (7-18); Calcium,Total 9.1 mg/dL (8.5-10.1); Chloride 95 mmol/L (98-107); Creatinine, Serum 0.85 mg/dL (0.55-1.02); EST Glomerular Filtration Rate 72 mL/min (>60); Est Glom Filt Rate - Afr Amer 87 mL/min (>60); Glucose 92 mg/dL (74-106); Potassium 4.8 mmol/L (3.5-5.1); Sodium Level 128 mmol/L (136-145)
[2019-08-21] MEDS: 0.9% Normal Saline 1,000 ML 150 ML IV (10:24)
[2019-08-21] MEDS: Ondansetron 4 MG/2 ML Vial IV (10:24)
[2019-08-21] MEDS: Morphine 4 MG/ML Syringe IV (10:25)
[2019-08-21 11:20] LABS: International Normalized Ratio 1.1; Prothrombin Time (Protime)PT. 13.9 SECONDS (11.7-14.9)
[2019-08-21 11:21] LABS: Partial Thromboplast Time 32.9 Seconds (24.1-36.2)
[2019-08-21 11:58] VITALS: BP 138/66; PULSE 72; RESP 16; O2SAT 98
== END 2019-08-21 12:32 | disposition home or self-care (01) ==
PROVIDERS: Emergency Provider Emergency Medicine; Family Provider Internal Medicine; PCP Internal Medicine
DX: Z48.01 Encounter for change or removal of surgical wound dressing (principal); I10 Essential (primary) hypertension; E78.5 Hyperlipidemia, unspecified; F17.200 Nicotine dependence, unspecified, uncomplicated; Z79.899 Other long term (current) drug therapy
CPT/HCPCS: 74177; 80048; 85025; 85610; 85730; 96361; 96374; 96375; 99285; J7030; Q9967; A4216; J2405

== ENCOUNTER 2019-12-30 15:14 | Observation (INO) | payer MEDICAID, SELFPAY ==
[2019-12-30] VITALS (10 sets, daily range): BP systolic 130–184; BP diastolic 52–107; PULSE 73–94; RESP 15–20; TEMP 36.5–36.9; O2SAT 93–99; BMI 26.9; BMI 26.3
--- NOTE | 2019-12-30 15:20 | EKG12_ITS ---
Test Reason : CP Blood Pressure : / mmHG Vent. Rate : 091 BPM Atrial Rate : 091 BPM P-R Int : 168 ms QRS Dur : 086 ms QT Int : 360 ms P-R-T Axes : 046 064 053 degrees QTc Int : 442 ms Normal sinus rhythm Normal ECG Confirmed by AFIA KULKARNI, SHERIF ([id number]), desk editor ALKA HARTMAN ([id number]) on 01/01/2020 1:49:38 PM Referred By: YVAN Confirmed By:SHERIF OREILLY MD
--- NOTE | 2019-12-30 15:32 | ED.VISSUMM ---
- ER Visit Summary Date of Service: 12/30/19 Chief Complaint: [Chest pain] History of Present Illness: The patient is a 64 F [presents to the emergency department complaint of pain that started around noon. She describes a sharp pain underneath her breasts and radiates straight through to her back. Patient's had some nausea with it. She denies any shortness of breath. She denies any fever or cough. Patient states that she had moved a flat screen television to a vehicle earlier in the day about an hour before her pain started. Patient states initially she felt like maybe she was just having some indigestion. Is never had pain like this before. She does have history of hypertension, high cholesterol, history of alcohol abuse but does not currently drink. Patient has had history of GI bleed and history duodenal ulcer. Patient tells me she has had a partial colectomy due to diverticulitis and also coils in her splenic artery. Patient denies food affecting her pain.] Physical Examination: [HEENT-PERRLA, EOMI. Cranial nerves II through XII grossly intact. TMs clear. Mucous membranes moist. No adenopathy. Cardiovascular-regular rate and rhythm without murmur or ectopy Lungs-clear to auscultation, chest wall stable without crepitus or subcu emphysema Abdomen-normoactive bowel sounds, soft. Patient has tenderness over the epigastric region as well as the right upper quadrant with guarding. Patient has a positive Olivier sign. There is no rebound, rigidity, or perineal signs. Extremities-intact ?4, normal range of motion, normal pulses, atraumatic] Test Results: EKG obtained on arrival showed a sinus rhythm with a ventricular rate of 91 bpm with no acute ST segment changes. [CBC with differential count 9.6, hemoglobin 13, hematocrit 40, platelets 362. Chemistries unremarkable. LFTs unremarkable. Urinalysis normal. Troponin was less than 0.015. Lactate was 0.9. CTA of the chest and abdomen obtained showed a distended gallbladder and recommended getting an ultrasound otherwise nothing significant. Gallbladder ultrasound showed a distended gallbladder with small gallstones otherwise no other signs of acute cholecystitis. They recommended obtaining a HIDA scan.] Emergency Department Course and Treatment: [Was medicated with morphine and Zofran. She did well for a time but then the pain returned and had to be remedicated with morphine.] Treatment Plan: [Admit] Disposition: [Admit] Impression: [Intractable abdominal pain Chest pain-etiology uncertain. Cholelithiasis] This note was generated with [employer] dictation software. It may contain incorrect words, spelling, and punctuation that were not noted in review of the chart prior to signing ED Disposition - Plan for ED Patient: Referrals: Nate Gray MD [Primary Care Provider] -
[2019-12-30 16:04] LABS: Absolute Lymphocyte Count 2.78 X10^3/uL (0.83-4.51); Absolute Neutrophil Count 5.5 X10^3/uL (2.0-7.7); Basophil# 0.06 X10^3/uL; Basophil% 0.6 % (0-1); Eosinophil# 0.27 X10^3/uL; Eosinophils% 2.8 % (0-5); Hemoglobin 13.3 g/dL (12.0-15.0); Lymphocyte # 2.78 X10^3/ul (4.0); Mean Corp Hgb Conc 33.3 g/dL (32-36); Mean Corpuscular Hgb 29.4 pg (27.0-32.0); Mean Corpuscular Volume 88.5 fL (81-99); Mean Platelet Vol. 10.2 fl (6.2-12.0); Monocyte# 0.97 X10^3/uL; Monocyte% 10.1 % (0-10); NRBC Flagged by Analyzer 0 % (0-5); Neutrophil # 5.48 X10^3/uL (2.7-7.7); Neutrophil % 57.1 % (47-70); POSITIVE COUNT YES; Platelet Count 362 K/mm3 (150-450); RBC Distribution Width CV 16.4 % (11.6-14.6); RBC Distribution Width SD 53.3 fl (35.1-43.9); Red Blood Count 4.52 M/mm3 (4.2-5.4); White Blood Count 9.6 K/mm3 (4.4-11.0)
[2019-12-30 16:07] LABS: Differential Indicated SCAN CRITERIA MET
[2019-12-30 16:08] LABS: Bacteria 0 SEEN /hpf (None Seen); Mucous, Urine 0 SEEN /hpf (<or=2+); Red Blood Cells-Urine 0 SEEN /hpf (0-5); Squamous Epithelial Cells - UA 0 SEEN /hpf (5-10); White Blood Cells 0 SEEN /hpf (0-5)
[2019-12-30 16:20] LABS: Color, Urine Straw (Yellow); Glucose, Dipstick Normal (Normal); Ketone-Dipstick Negative (Negative); Leukocyte Esterase-Dipstick Negative /ul (Negative); Nitrite-Dipstick Negative (Negative); Occult Blood-Urine 10 /ul (Negative); Protein-Dipstick Negative (Negative); Urine Bilirubin Dipstick Negative (Negative); Urine Clarity Clear (Clear); Urine Urobilinogen Normal (Normal)
[2019-12-30] MEDS: 0.9% Normal Saline 1,000 ML 125 ML IV ×2 (16:35→20:43)
[2019-12-30] MEDS: Ondansetron 4 MG/2 ML Vial IV (16:35)
[2019-12-30] MEDS: Morphine 4 MG/ML Syringe IV ×2 (16:35→19:08)
[2019-12-30 16:50] LABS: ALB/GLOB Ratio 0.8 RATIO (0.9-2.4); AST(SGOT) 33 U/L (15-37); Alanine Aminotransfer ALT/SGPT 37 U/L (13-56); Albumin, Serum 3.5 g/dL (3.2-5.0); Alkaline Phosphatase 105 U/L (45-117); Anion Gap 6 (5-15); BUN 16 mg/dL (7-18); BUN/Creat Ratio 23.2 RATIO (10-20); Calcium,Total 9.1 mg/dL (8.5-10.1); Chloride 98 mmol/L (98-107); Creatinine, Serum 0.69 mg/dL (0.55-1.02); EST Glomerular Filtration Rate 91 mL/min (>60); Est Glom Filt Rate - Afr Amer 110 mL/min (>60); Estimated Creatinine Clearance 79.97 ml/min; Globulin 4.3 g/dL (2.2-4.2); Glucose 76 mg/dL (74-106); Lipase 219 U/L (73-393); Potassium 4.6 mmol/L (3.5-5.1); Protein, Total 7.8 g/dL (6.4-8.2); Sodium Level 130 mmol/L (136-145)
[2019-12-30 16:56] LABS: Lactic Acid 0.9 mmol/L (0.4-1.9)
--- NOTE | 2019-12-30 16:56 | CT_ITS ---
CTA of the chest INDICATION: Chest and abdominal pain possible aortic dissection TECHNIQUE: CTA of the chest abdomen and pelvis was performed in the axial projection utilizing intravenous enhancement followed by sagittal and coronal reconstructions. Radiographic technique was optimized to limit patient radiation dose. DLP was 748.73 FINDINGS: There is mild diffuse interstitial thickening and centrilobular and some is changes. Is minor subsegmental atelectasis or scarring in the left lower lobe and atelectasis within the dependent portion of the right lung. No gross infiltration or pulmonary nodules are observed. Heart is normal in size however there is mild coronary artery calcification. There are atherosclerotic changes of the aorta without evidence for aneurysm periaortic leak or dissection. Dorsal spine demonstrates moderate spondylosis. IMPRESSION: Mild chronic interstitial changes and ASHD. No evidence for aortic aneurysm periaortic leak or dissection CTA of the abdomen and pelvis Findings: There is minor atelectasis within the dependent portion of the right lung. Liver is normal size and homogeneous attenuation without mass or bile duct dilatation. There is distended gallbladder without calcified stones or pericholecystic fluid possibly physiologic. If concern for gallbladder disease ultrasound recommended. Spleen is normal size. Pancreas is normal in size and homogeneous attenuation. Embolization coils are seen within the splenic artery. The adrenals are normal. No evidence for renal obstruction or ureteral calculus. There is a simple cyst in the left kidney. Within the right kidney there is a small solid nodule measuring approximately 1.3 x 1.45 cm.. Atherosclerotic changes of the aorta without evidence for aneurysm periaortic leak or dissection. There are postsurgical changes status post resection of the colon. Mild ileus pattern is observed without evidence for small bowel obstruction or pneumoperitoneum. Diverticular changes of the colon without evidence for acute diverticulitis. No evidence for acute appendicitis. Postsurgical changes status post herniorrhaphy of the anterior pelvic wall Lumbar spine demonstrates mild spondylosis Solid nodule in the right kidney is unchanged since prior exam CT/CT ANGIO ABD&PEL W/O&W/DYE IMPRESSION: Atherosclerotic changes of the aorta without evidence for aneurysm periaortic leak or dissection. Postop change status post resection of the colon and anterior pelvic wall herniorrhaphy. Mild nonspecific ileus. No evidence for small bowel obstruction or pneumoperitoneum. Dilated gallbladder without calcified stones indeterminate significance. If concern for gallbladder disease ultrasound recommended Stable appearance to solid nodule in the right kidney of indeterminate etiology.. Electronically Signed: Kris Oneill MD at 17:46 EDT , Service support ,
[2019-12-30 17:08] LABS: Differential Comment SCANNED; Platelet Estimate ADEQUATE (ADEQ); Red Cell Morphology NORM C+C NORMAL (NORM C&C)
--- NOTE | 2019-12-30 18:05 | US_ITS ---
STUDY: ABDOMINAL ULTRASOUND - RIGHT UPPER QUADRANT REASON FOR VISIT: Female, 64 years old ABD PAIN TECHNIQUE: Ultrasound evaluation of the right upper quadrant was performed with real-time and static hutchins-scale imaging. TECHNICAL QUALITY: Adequate. COMPARISON: None. FINDINGS: Liver: The liver measures 16.4 cm. There is normal echogenicity of the liver. The bile ducts are within normal limits. There is hepatic color flow. The direction of portal flow is hepatopetal. There is no demonstrated mass lesion. Gallbladder: Distended gallbladder. The gallbladder wall measures mm. There is a negative sonographic Olivier''s sign. There is no pericholecystic fluid. There are multiple tiny gallstones. Common Bile Duct (C.B.D.): The common bile duct measures 6 mm. Pancreas: Normal size of the head, body and tail of the pancreas. There is normal echogenicity of the pancreas. There is no demonstrated pancreatic mass or cyst. Right Kidney: Normal size of the right kidney. The right kidney measures 10.6 x 4.7 x 4.4 cm. Normal renal cortex. The right cortex measures 1.3 cm. Small hypoechoic nodule measuring 1.3 x 1.4 cm. There is no right hydronephrosis. US/Gallbladder IMPRESSION: Distended gallbladder with tiny stones without definitive evidence for acute inflammation. HIDA scan would be helpful for further evaluation if clinically warranted. Incidental finding of small hypoechoic nodule in the right kidney Electronically Signed: Kris Oneill MD at 18:47 EDT , Service support ,
--- NOTE | 2019-12-30 18:10 | HP.PCM_ITS ---
Problem List (1) Epigastric pain Status: Acute (2) Anxiety Status: Chronic (3) Hyponatremia Status: Chronic (4) Alcohol abuse Status: Chronic (5) HLD (hyperlipidemia) Status: Chronic (6) HTN (hypertension) Status: Chronic (7) Smoker Status: Chronic History of Present Illness Date of Admission: 12/30/19 Chief Complaint: BL epigastric pain The patient is a 64 year old F with pmhx of alcoholism in remission, heavy nicotine abuse, htn, hld, anxiety, diverticulitis, splenic laceration, who presented to the ER with c/o midepigastric pain. This began after moving a flat screen tv. She walked into the house after loading the tv into her sons car, and starting having mid back stabbing pain, this radiated into the BL epigastric region beneath her breasts. She had some nausea without vomiting as well. No SOB. Pain was 10/10. Currently 6/10. It is worse with sitting up, rotating her torso, or taking a deep breath. She thought she was having indigestion so she drank a coke and started belching, and tried taking some rolaids, however her pain was not relieved. [] Past Medical History Past Medical History (Chronic Problems): Chronic Problems Anxiety (Chronic) Smoker (Chronic) HLD (hyperlipidemia) (Chronic) HTN (hypertension) (Chronic) Alcohol abuse (Chronic) Hyponatremia (Chronic) Allergies amlodipine Allergy (Verified 12/30/19 15:22) Unknown clonidine Allergy (Verified 12/30/19 15:22) Unknown codeine Adverse Reaction (Verified 12/30/19 15:22) Nausea Home Medications: Ambulatory Orders Medication Instructions Recorded ALPRAZolam [Xanax] 0.5 mg PO TID PRN PRN 07/26/15 Lisinopril [Zestril] 40 mg PO DAILY 07/26/15 traMADol [Ultram] 50 mg PO BID 07/26/15 Atorvastatin Calcium 20 mg PO QHS 05/28/19 Carvedilol 25 mg PO BID 05/28/19 Spironolactone 25 mg PO DAILY 05/28/19 Surgical History: herniorrhaphy, - - sigmoid colectomy with splenic flexure mobilization and ileostomy creation November 11, 2005. Colonoscopy with dilation of anastomosis April 17, 2006. Ileostomy takedown-September 21, 2006. 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 Denies: Diarrhea, Vomiting Genitourinary: Denies: Dysuria Musculoskeletal: Reports: - - back pain. Denies: Joint Pain, Joint Tenderness Skin: Denies: Rash, Wounds Neurological: Denies: Numbness, Tingling, Focal weakness Psychiatric: Denies: Anxiety, Depression, Homicidal Ideations, Suicidal Ideations Hematologic/ Lymphatic: Denies: Easy Bruising, Easy Bleeding VTE Information - Inpt Only VTE Present on Admission: No VTE Mechan Device Prophylaxis: None VTE Pharm Prophylaxis ordered?: Yes Patient Problems: Active and Suspected Problems Epigastric pain (Acute) - Physical Exam Vitals/I&O's: Vital Signs Temp Pulse Resp BP Pulse Ox 98.5 F 73 15 168/88 H 97 12/30/19 15:15 12/30/19 17:00 12/30/19 17:00 12/30/19 17:00 12/30/19 17:00 Oxygen Delivery Method Room Air Weight: 135 lb 9.349 oz Body Mass Index (BMI) 26.9 General: Alert, Oriented x3, Cooperative HEENT: Atraumatic, PERRLA, EOMI, Normocephalic Neck: Supple, No JVD, Negative Carotid Bruits Lungs: Rales - BL bases Cardiovascular: Regular rate, No murmurs Abdomen: Bowel Sounds Present, Guarding - tender RUQ and LLQ to moderate palpation, Tender - RUQ LLQ, severe tenderness Extremities: No edema, Capillary Refill Less than 3 Seconds Skin: No rashes, No breakdown Musculoskeletal: No Tenderness to Palpation of Joints or Extremities Neurological: Cranial nerves II-XII grossly intact Psych/Mental Status: Anxious, Alert and oriented to time, place, person, mood and affect Laboratory Results 12/30/19 15:20: WBC 9.6, RBC 4.52, Hgb 13.3, Hct 40.0, MCV 88.5, MCH 29.4, MCHC 33.3, RDW Std Deviation 53.3 H, RDW Coeff of Renea 16.4 H, Plt Count 362, MPV 10.2, Immature Gran % (Auto) 0.400, Neut % (Auto) 57.1, Lymph % (Auto) 29.0, [place] % (Auto) 10.1 H, Eos % (Auto) 2.8, Baso % (Auto) 0.6, Absolute Neuts (auto) 5.5, Absolute Lymphs (auto) 2.78, Nucleated RBC % 0, Differential Comment SCANNED, Platelet Estimate ADEQUATE, RBC Morphology NORM C+C 12/30/19 15:20: Sodium 130 L, Potassium 4.6, Chloride 98, Carbon Dioxide 26.0, Anion Gap 6, BUN 16, Creatinine 0.69, Estim Creat Clear Calc 79.97, Est GFR (MDRD) Af Amer 110, Est GFR (MDRD) Non-Af 91, BUN/Creatinine Ratio 23.2 H, Glucose 76, Calcium 9.1, Total Bilirubin 0.40, AST 33, ALT 37, Alkaline Phosphatase 105, Troponin I < 0.015, Total Protein 7.8, Albumin 3.5, Globulin 4.3 H, Albumin/Globulin Ratio 0.8 L, Lipase 219 12/30/19 16:00: Urine Color Straw, Urine Clarity Clear, Urine pH 7.0, Ur Specific [place] 1.010, Urine Protein Negative, Urine Glucose (UA) Normal, Urine Ketones Negative, Urine Occult Blood 10 H, Urine Nitrite Negative, Urine Bilirubin Negative, Urine Urobilinogen Normal, Ur Leukocyte Esterase Negative, Urine RBC 0 SEEN, Urine WBC 0 SEEN, Ur Squamous Epith Cells 0 SEEN, Urine Bacteria 0 SEEN, Urine Mucus 0 SEEN 12/30/19 16:16: Lactic Acid 0.9 Current Medications Sodium Chloride () 1,000 mls @ 125 mls/hr IV .Q8H [facility] Last Admin: 12/30/19 16:35 Dose: 125 mls/hr Documented by: Assessment/Plan All Active Problems Epigastric pain (Acute) Duodenal ulcer (Acute) Anemia due to acute blood loss (Acute) Rectal bleeding (Acute) Hypokalemia (Acute) Lower GI bleed (Acute) 1. Epigastric pain, back pain - trop neg, ekg neg. Pain sharp in quality started after moving a tv, worse with movement, deep breath. On exam severe RUQ tenderness and guarding, LLQ tenderness. BL basilar crackles in lungs. CTA chest with interstitial changes, atherosclerosis and calcifications. CTA abdomen shows distended gallbladder, nonspecific ileus however pt with good bowel sounds. Right kidney nodule. Lipase is negative. UA is negative. LA is negative. Labs are unremarkable as are vitals. -Obtain GB ultrasound -repeat trop 2. Nicotine abuse - 2ppd. patch. 3. Hyponatremia - chronic, unclear etiology 4. Hx Alcoholism - states she does not drink anymore. Check EtOH level. 5. HTN - elevated in ER likely 2/2 severe pain. May continue coreg, lisinopril 6. HLD - statin 7. Anxiety - prn xanax. anxious affect. DVT ppx: lovenox This patient was seen by Nathan Cantrell PA-C under the supervision of Dr. Frederick
--- NOTE | 2019-12-30 19:26 | EKG12_ITS ---
Test Reason : CP ADMIT Blood Pressure : / mmHG Vent. Rate : 078 BPM Atrial Rate : 078 BPM P-R Int : 184 ms QRS Dur : 080 ms QT Int : 362 ms P-R-T Axes : 044 061 048 degrees QTc Int : 412 ms Normal sinus rhythm Normal ECG When compared with ECG of 30-DEC-2019 15:20, MANUAL COMPARISON REQUIRED, DATA IS UNCONFIRMED Confirmed by GIL TAPIA ([id number]), editor farm journal ANNEL QUIROS ([id number]) on 01/01/2020 7:52:26 AM Referred By: LINDSEY Confirmed By:GIL TAPIA
--- NOTE | 2019-12-30 19:42 | NURSING ---
Flu shot recorded. PNA vaccines not recorded.
[2019-12-30 19:52] LABS: Amphetamine Urine VISTA NEGATIVE (<1000 ng/mL); Barbiturate Urine VISTA NEGATIVE (< 200 ng/mL); Benzodiazepine Urine VISTA POSITIVE (< 200 ng/mL); Cocaine Urine VISTA NEGATIVE (< 300 ng/mL); Ecstacy Urine VISTA NEGATIVE (< 500 ng/mL); Methadone Urine VISTA NEGATIVE (< 300 ng/mL); PCP Urine VISTA NEGATIVE (< 25 ng/mL); THC Urine VISTA NEGATIVE (< 50 ng/mL); Vista UDS pH Range 6
[2019-12-30 20:13] LABS: Magnesium 1.9 mg/dL (1.6-2.6); Thyroid Stim Hormone (TSH) 0.01 uIU/mL (0.358-3.74)
[2019-12-30] MEDS: 0.9% Saline Lock 10 ML Syringe IV (20:44)
[2019-12-30 20:50] LABS: Osmolality, Urine 351 mOsm/KG
[2019-12-30] MEDS: Spironolactone 25 MG Tablet PO (21:57)
[2019-12-30] MEDS: Carvedilol 25 MG Tablet PO (21:57)
[2019-12-30] MEDS: Lisinopril 40 MG Tablet PO (21:57)
[2019-12-30] MEDS: Atorvastatin Calcium 20 MG Tablet PO (21:57)
[2019-12-30] MEDS: oxyCODONE 5 MG Tablet 10 MG PO (22:04)
[2019-12-30] MEDS: ALPRAZolam 0.5 MG Tablet PO (23:20)
--- NOTE | 2019-12-30 23:25 | NURSING ---
Pt states she gets rash/inflammation with adhesive. Nicotine patch in place at this time. Pt wanting to keep patch in place. Pt instructed to alert staff if patch starts bothering her.
[2019-12-31] VITALS (9 sets, daily range): BP systolic 121–150; BP diastolic 58–76; PULSE 86–100; RESP 16–18; TEMP 36.3–37.1; O2SAT 92–97
[2019-12-31] MEDS: Morphine 4 MG/ML Syringe IV ×2 (03:58→11:25)
[2019-12-31] MEDS: 0.9% Saline Lock 10 ML Syringe IV ×2 (03:59→11:25)
[2019-12-31] MEDS: 0.9% Normal Saline 1,000 ML 125 ML IV (05:22)
--- NOTE | 2019-12-31 05:55 | NM_ITS ---
CLINICAL: 64-year-old female with history of abdominal pain. RADIONUCLIDE HEPATOBILIARY SCINTIGRAPHY COMPARISON: Abdominal ultrasound report 12/30/2019 FINDINGS: Following the intravenous administration of 6.0 mCi of 99m Tc Mebrofenin, hepatobiliary images reveal: 1. Relatively prompt and homogeneous radiopharmaceutical concentration is noted by a normal sized liver. No parenchymal defects are identified. 2. Gallbladder activity is identified at 30 minutes post radiopharmaceutical administration. 3. Small intestinal tract is not visualized during 60 minutes of pre-CCK sequential imaging. Small bowel activity is identified following the administration of cholecystokinin. 4. Washout of the radiopharmaceutical by the hepatic parenchyma appears qualitatively normal. Cholecystokinin (0.02 ug/kg) was administered intravenously over a 30-minute period. The post CCK gallbladder ejection fraction calculated at 20 minutes following Cholecystokinin administration was noted to be < 5 % (normal greater than 35%). NM/Hepatobilliary Img w/Pharm Int IMPRESSION: 1. ABNORMAL 99m Tc Mebrofenin hepatobiliary imaging examination with Cholecystokinin. A. A gallbladder ejection fraction calculated to be less than 35% following the administration of Cholecystokinin is consistent with the presence of functional hepatobiliary disease (gallbladder and/or sphincter of Oddi dyskinesia) and/or organic hepatobiliary disease (chronic acalculous cholecystitis and/or cystic duct syndrome) in patients with intermediate to high pretest likelihoods of hepatobiliary illness. (Jose Rondon et al, Journal of Nuclear Medicine 32:1695, 1991). Electronically Signed: Elie Perera DO at 11:12 EDT Tel , Service support ,
--- NOTE | 2019-12-31 05:55 | EKG12_ITS ---
Test Reason : AM EKG Blood Pressure : / mmHG Vent. Rate : 092 BPM Atrial Rate : 092 BPM P-R Int : 198 ms QRS Dur : 078 ms QT Int : 358 ms P-R-T Axes : 047 065 037 degrees QTc Int : 442 ms Normal sinus rhythm Normal ECG When compared with ECG of 30-DEC-2019 19:47, MANUAL COMPARISON REQUIRED, DATA IS UNCONFIRMED Confirmed by GIL TAPIA ([id number]), science editor ANNEL QUIROS ([id number]) on 01/01/2020 7:57:59 AM Referred By: LINDSEY Confirmed By:GIL TAPIA
[2019-12-31 07:01] LABS: Absolute Lymphocyte Count 1.76 X10^3/uL (0.83-4.51); Absolute Neutrophil Count 3.9 X10^3/uL (2.0-7.7); Basophil# 0.07 X10^3/uL; Basophil% 1.1 % (0-1); Eosinophil# 0.23 X10^3/uL; Eosinophils% 3.5 % (0-5); Hematocrit 43.4 % (37-47); Hemoglobin 14.5 g/dL (12.0-15.0); Lymphocyte # 1.76 X10^3/ul (4.0); Lymphocyte % 26.4 % (19-41); Mean Corp Hgb Conc 33.4 g/dL (32-36); Mean Corpuscular Hgb 29.4 pg (27.0-32.0); Mean Platelet Vol. 10.8 fl (6.2-12.0); Monocyte% 10.5 % (0-10); NRBC Flagged by Analyzer 0 % (0-5); Neutrophil # 3.87 X10^3/uL (2.7-7.7); Platelet Count 241 K/mm3 (150-450); RBC Distribution Width CV 13.2 % (11.6-14.6); RBC Distribution Width SD 42.5 fl (35.1-43.9); Red Blood Count 4.93 M/mm3 (4.2-5.4); White Blood Count 6.7 K/mm3 (4.4-11.0)
[2019-12-31 07:15] LABS: ALB/GLOB Ratio 0.8 RATIO (0.9-2.4); AST(SGOT) 46 U/L (15-37); Alanine Aminotransfer ALT/SGPT 54 U/L (13-56); Albumin, Serum 3.1 g/dL (3.2-5.0); Alkaline Phosphatase 108 U/L (45-117); Anion Gap 11 (5-15); BUN 12 mg/dL (7-18); BUN/Creat Ratio 18.8 RATIO (10-20); Calcium,Total 8.7 mg/dL (8.5-10.1); Chloride 104 mmol/L (98-107); Cholesterol 140 mg/dL (200); Creatinine, Serum 0.64 mg/dL (0.55-1.02); EST Glomerular Filtration Rate 99 mL/min (>60); Est Glom Filt Rate - Afr Amer 120 mL/min (>60); Estimated Creatinine Clearance 84.26 ml/min; Globulin 3.9 g/dL (2.2-4.2); Glucose 124 mg/dL (74-106); High Density Lipoprotein 55 mg/dL; Potassium 4.2 mmol/L (3.5-5.1); Sodium Level 134 mmol/L (136-145); Triglycerides 70 mg/dL; Very Low Density Lipoprotein 14 mg/dL (5-40)
[2019-12-31] MEDS: Carvedilol 25 MG Tablet PO ×2 (08:14→20:39)
[2019-12-31] MEDS: ALPRAZolam 0.5 MG Tablet PO ×2 (08:14→15:31)
[2019-12-31] MEDS: Acetaminophen 325 MG Tablet 650 MG PO ×2 (08:14→19:28)
--- NOTE | 2019-12-31 08:53 | NURSING ---
Off unit for HIDA scan at this time. Made nuc med aware that patient had morphine at 0400. They stay they need to get the test done but it is noted.
--- NOTE | 2019-12-31 13:23 | PCM.DC ---
- Discharge Diagnoses Current Active Problems: Current Active and Chronic Problems Epigastric pain (Acute) Anxiety (Chronic) You will use the following diet at home:: Cardiac, Other - low fat diet Your food should be the consistency of: Regular Discharge Activity: Return to Normal Activity Weight Bearing Status: Full weight bearing Call your doctor if you observe: Fever of 101 or Higher, Shortness of breath, Dizziness, Fainting spells, Chest pain, Increased palpitations (irregular heartbeat), Uncontrolled pain Allergies/Adverse Reactions: Allergies amlodipine Allergy (Verified 12/30/19 15:22) Unknown clonidine Allergy (Verified 12/30/19 15:22) Unknown adhesive Adverse Reaction (Verified 12/30/19 23:25) Rash albuterol Adverse Reaction (Verified 12/30/19 20:39) NEEDS FOLLOW-UP codeine Adverse Reaction (Verified 12/30/19 15:22) Nausea Medications to take at Discharge ALPRAZolam [Xanax] 0.5 mg PO TID PRN PRN 07/26/15 Lisinopril [Zestril] 40 mg PO QHS 07/26/15 traMADol [Ultram] 50 mg PO TID 07/26/15 Atorvastatin Calcium 20 mg PO QHS 05/28/19 Carvedilol 25 mg PO BID 05/28/19 Spironolactone 25 mg PO QHS 05/28/19 Levalbuterol HCl 1 inh INHALATION Q4H PRN 12/30/19 Levalbuterol Tartrate [Levalbuterol Tartrate Hfa] 1 - 2 puff INHALATION Q4H PRN 12/30/19 Pantoprazole Sodium [Protonix] 40 mg PO DAILY #30 tab 12/31/19 The following prescriptions were given: Pantoprazole Sodium [Protonix] 40 mg PO DAILY #30 tab Transmission Status: Pending to [facility] Primary Care Physician: Nate Gray MD [Primary Care Provider] - Please follow up with your Primary Care Physician in: 1-2 weeks. Test Results: Test results from this visit will be discussed in further detail at your follow-up appointment, if applicable. Please Follow Up With: Matt Lisa MD When: 4-6 weeks.
--- NOTE | 2019-12-31 13:35 | PHA.DC.MR ---
Pharmacy Service has performed discharge medication reconciliation for this patient. The patient's discharge medication list was reviewed for discrepancies and discrepancies were resolved. Home Medications ALPRAZolam [Xanax] 0.5 mg PO TID PRN PRN 07/26/15 Lisinopril [Zestril] 40 mg PO QHS 07/26/15 traMADol [Ultram] 50 mg PO TID 07/26/15 Atorvastatin Calcium 20 mg PO QHS 05/28/19 Carvedilol 25 mg PO BID 05/28/19 Spironolactone 25 mg PO QHS 05/28/19 Levalbuterol HCl 1 inh INHALATION Q4H PRN 12/30/19 Levalbuterol Tartrate [Levalbuterol Tartrate Hfa] 1 - 2 puff INHALATION Q4H PRN 12/30/19 Pantoprazole Sodium [Protonix] 40 mg PO DAILY #30 tab 12/31/19
--- NOTE | 2019-12-31 13:41 | DS.PCM_ITS ---
Discharge Date and Diagnosis - Problem List Patient Problems: Active and Suspected Problems Epigastric pain (Acute) Date of Admission: 12/30/19 Date of Discharge: 12/31/19 - Primary Discharge Diagnosis Active and Suspected Problems Epigastric pain (Acute) - Secondary Discharge Diagnosis Chronic Problems Anxiety (Chronic) Smoker (Chronic) HLD (hyperlipidemia) (Chronic) HTN (hypertension) (Chronic) Alcohol abuse (Chronic) Hyponatremia (Chronic) Hospital Course and Treatment Imaging Results: 12/31/19 05:55 Hepatobilliary Img w/Pharm Int [NM] AM (NON MEDS) Clinical Impression(s) from Imaging Studies Chest CTA 12/30/19 16:55 IMPRESSION: Atherosclerotic changes of the aorta without evidence for aneurysm periaortic leak or dissection. Postop change status post resection of the colon and anterior pelvic wall herniorrhaphy. Mild nonspecific ileus. No evidence for small bowel obstruction or pneumoperitoneum. Dilated gallbladder without calcified stones indeterminate significance. If concern for gallbladder disease ultrasound recommended Stable appearance to solid nodule in the right kidney of indeterminate etiology.. Electronically Signed: Kris Oneill MD at 17:46 EDT , Service support , Abdomen/Pelvis CTA 12/30/19 16:56 IMPRESSION: Atherosclerotic changes of the aorta without evidence for aneurysm periaortic leak or dissection. Postop change status post resection of the colon and anterior pelvic wall herniorrhaphy. Mild nonspecific ileus. No evidence for small bowel obstruction or pneumoperitoneum. Dilated gallbladder without calcified stones indeterminate significance. If concern for gallbladder disease ultrasound recommended Stable appearance to solid nodule in the right kidney of indeterminate etiology.. Electronically Signed: Kris Oneill MD at 17:46 EDT , Service support , Gallbladder Ultrasound 12/30/19 18:05 IMPRESSION: Distended gallbladder with tiny stones without definitive evidence for acute inflammation. HIDA scan would be helpful for further evaluation if clinically warranted. Incidental finding of small hypoechoic nodule in the right kidney Electronically Signed: Kris Oneill MD at 18:47 EDT , Service support , Hepatobiliary Scan Nuclear Medicine 12/31/19 05:55 IMPRESSION: 1. ABNORMAL 99m Tc Mebrofenin hepatobiliary imaging examination with Cholecystokinin. A. A gallbladder ejection fraction calculated to be less than 35% following the administration of Cholecystokinin is consistent with the presence of functional hepatobiliary disease (gallbladder and/or sphincter of Oddi dyskinesia) and/or organic hepatobiliary disease (chronic acalculous cholecystitis and/or cystic duct syndrome) in patients with intermediate to high pretest likelihoods of hepatobiliary illness. (Jose Rondon et al, Journal of Nuclear Medicine 32:1695, 1990). Electronically Signed: Elie Perera DO at 11:12 EDT Tel , Service support , Dr. Lisa., General surgery. Operations: None Procedures: None Summary of Care Provided: The patient is a 64 year old F presented to the emergency room because of upper abdominal pain, epigastric and right upper quadrant abdominal pain with nausea and vomiting. She denied chest pain or shortness of breath. Her EKG revealed normal sinus rhythm without evidence of acute ischemic changes changes. Her troponin was negative x4. She had extensive work-up as mentioned below. CTA of the chest showed no evidence of PE or dissection, no aneurysmal dilatation. CTA abdomen and pelvis revealed atherosclerotic changes of the aorta without evidence of aneurysm or dissection, mild nonspecific ileus without evidence of small bowel obstruction or pneumoperitoneum. Patient's routine blood work was unremarkable. LFT was normal as well as lactic acid and lipase. Patient Problems: Active and Suspected Problems Epigastric pain (Acute) - Physical Exam Vitals/I&O's: Vital Signs Temp Pulse Resp BP Pulse Ox 98.1 F 88 18 121/58 H 96 12/31/19 11:23 12/31/19 11:23 12/31/19 11:23 12/31/19 11:23 12/31/19 11:23 Oxygen Delivery Method Room Air Weight: 132 lb 8 oz Body Mass Index (BMI) 26.3 Intake and Output for Last 24 Hours 12/29/19 12/30/19 12/31/19 23:59 23:59 23:59 Intake Total 2160 / 2160 1468.75 / 1468.75 Balance 2159 1468.75 / 1468.75 General: Alert, Oriented x3, Cooperative, No apparent distress HEENT: Atraumatic, PERRLA, EOMI, Normocephalic Oral: Moist Mucosa, No Gingival or Mucosal Lesions/ Ulcerations Neck: Supple, No JVD, Negative Carotid Bruits, Trachea Midline, Thyroid Normal Size and Texture Lungs: Clear to auscultation, Normal air movement, No rhonchi, No wheeze, No rales Cardiovascular: Regular rate, Regular Rhythm, Normal S1, Normal S2, PMI Normal Abdomen: Bowel Sounds Present, Soft, Non Tender, Non-Distended, No Hepato- splenomegaly, - - RUQ tenderness. Extremities: No clubbing, No cyanosis, No edema Skin: No rashes, No breakdown Lymphatic: No Cervical, Supraclavicular, or Inguinal Adenopathy Neurological: Cranial nerves II-XII grossly intact, Neuro grossly intact Psych/Mental Status: Normal Affect, Appropriate Laboratory Results 12/30/19 15:20: WBC 9.6, RBC 4.52, Hgb 13.3, Hct 40.0, MCV 88.5, MCH 29.4, MCHC 33.3, RDW Std Deviation 53.3 H, RDW Coeff of Renea 16.4 H, Plt Count 362, MPV 10.2, Immature Gran % (Auto) 0.400, Neut % (Auto) 57.1, Lymph % (Auto) 29.0, [place] % (Auto) 10.1 H, Eos % (Auto) 2.8, Baso % (Auto) 0.6, Absolute Neuts (auto) 5.5, Absolute Lymphs (auto) 2.78, Nucleated RBC % 0, Differential Comment SCANNED, Platelet Estimate ADEQUATE, RBC Morphology NORM C+C 12/30/19 15:20: Sodium 130 L, Potassium 4.6, Chloride 98, Carbon Dioxide 26.0, Anion Gap 6, BUN 16, Creatinine 0.69, Estim Creat Clear Calc 79.97, Est GFR (MDRD) Af Amer 110, Est GFR (MDRD) Non-Af 91, BUN/Creatinine Ratio 23.2 H, Glucose 76, Calcium 9.1, Total Bilirubin 0.40, AST 33, ALT 37, Alkaline Phosphatase 105, Troponin I < 0.015, Total Protein 7.8, Albumin 3.5, Globulin 4.3 H, Albumin/Globulin Ratio 0.8 L, Lipase 219 12/30/19 16:00: Urine Color Straw, Urine Clarity Clear, Urine pH 7.0, Ur Specific Amber 1.010, Urine Protein Negative, Urine Glucose (UA) Normal, Urine Ketones Negative, Urine Occult Blood 10 H, Urine Nitrite Negative, Urine Bilirubin Negative, Urine Urobilinogen Normal, Ur Leukocyte Esterase Negative, Urine RBC 0 SEEN, Urine WBC 0 SEEN, Ur Squamous Epith Cells 0 SEEN, Urine Bacteria 0 SEEN, Urine Mucus 0 SEEN 12/30/19 16:00: Urine Opiates Screen NEGATIVE, Urine Methadone Screen NEGATIVE, Ur Barbiturates Screen NEGATIVE, Ur Phencyclidine Scrn NEGATIVE, Ur Amphetamines Screen NEGATIVE, U Methamphetamin-MDMA NEGATIVE, U Benzodiazepines Scrn POSITIVE H, Urine Cocaine Screen NEGATIVE, U Cannabinoids Screen NEGATIVE, Ur Drug Screen Comment 12/30/19 16:16: Lactic Acid 0.9 12/30/19 19:42: Magnesium 1.9, Troponin I < 0.015, TSH 0.01 L 12/30/19 20:23: Urine Osmolality 351 12/30/19 22:10: Ethyl Alcohol 5.0 12/30/19 22:10: Troponin I < 0.015 12/31/19 01:45: Troponin I < 0.015 12/31/19 05:45: WBC 6.7, RBC 4.93, Hgb 14.5, Hct 43.4, MCV 88.0, MCH 29.4, MCHC 33.4, RDW Std Deviation 42.5, RDW Coeff of Renea 13.2, Plt Count 241, MPV 10.8, Immature Gran % (Auto) 0.500, Neut % (Auto) 58.0, Lymph % (Auto) 26.4, [place] % (Auto) 10.5 H, Eos % (Auto) 3.5, Baso % (Auto) 1.1 H, Absolute Neuts (auto) 3.9, Absolute Lymphs (auto) 1.76, Nucleated RBC % 0 12/31/19 05:45: Sodium 134 L, Potassium 4.2, Chloride 104, Carbon Dioxide 19.0 L , Anion Gap 11, BUN 12, Creatinine 0.64, Estim Creat Clear Calc 84.26, Est GFR (MDRD) Af Amer 120, Est GFR (MDRD) Non-Af 99, BUN/Creatinine Ratio 18.8, Glucose 124 H, Calcium 8.7, Total Bilirubin 0.20, AST 46 H, ALT 54, Alkaline Phosphatase 108, Total Protein 7.0, Albumin 3.1 L, Globulin 3.9, Albumin/Globulin Ratio 0.8 L, Triglycerides 70, Cholesterol 140, LDL Cholesterol 71, VLDL Cholesterol 14, HDL Cholesterol 55 Current Medications Acetaminophen (Tylenol) 650 mg PO Q6H PRN PRN PRN Reason: Pain Score 1-10/Temp > 100.7 F Last Admin: 12/31/19 08:14 Dose: 650 mg Documented by: Al Hydroxide/Mg Hydroxide (Mylanta Ii) 30 ml PO Q6H PRN PRN PRN Reason: Gastric Burning Alprazolam (Xanax) 0.5 mg PO TID PRN PRN PRN Reason: ANXIETY/BLOOD PRESSURE Last Admin: 12/31/19 08:14 Dose: 0.5 mg Documented by: Aspirin (Ecotrin) 81 mg PO DAILY@0800 [facility] Atorvastatin Calcium (Lipitor) 20 mg PO QHS [facility] Last Admin: 12/30/19 21:57 Dose: 20 mg Documented by: Carvedilol (Coreg) 25 mg PO BID [facility] Last Admin: 12/31/19 08:14 Dose: 25 mg Documented by: Dextrose (D50w Syringe) 0 gm IV X1 PRN; Protocol PRN Reason: Hypoglycemia Enoxaparin Sodium (Lovenox) 40 mg SC DAILY [facility] Glucagon () 1 mg IM .X1 PRN PRN Reason: Hypoglycemia Guaifenesin (Robitussin) 20 ml PO Q4H PRN PRN PRN Reason: COUGH Hydralazine HCl (Apresoline Iv) 10 mg IV Q4H PRN PRN PRN Reason: SBP > 160 Sodium Chloride () 1,000 mls @ 125 mls/hr IV .Q8H [facility] Last Infusion: 12/31/19 11:37 Dose: 125 mls/hr Documented by: Pantoprazole Sodium 40 mg/ (Sodium Chloride) 110 mls @ 330 mls/hr IV Q12 [facility] Last Infusion: 12/31/19 08:37 Dose: Infused Documented by: Sodium Chloride () 250 mls @ 15 mls/hr IV .[id number] PRN PRN Reason: Saline Flush Sodium Chloride () 250 mls @ 15 mls/hr IV .[id number] PRN PRN Reason: Additional IVPB Infusion Ipratropium [place] (Atrovent) 0.5 mg INHALATION Q4H.RT PRN PRN Reason: SHORTNESS OF BREATH Lisinopril (Zestril) 40 mg PO QHS [facility] Last Admin: 12/30/19 21:57 Dose: 40 mg Documented by: Magnesium Hydroxide (Milk Of Magnesia) 30 ml PO DAILY PRN PRN PRN Reason: Constipation Morphine Sulfate () 4 mg IV Q3H PRN PRN PRN Reason: Pain Score 6-10/10 Last Admin: 12/31/19 11:25 Dose: 4 mg Documented by: Nicotine (Nicoderm Cq (Pbkc)) 21 mg TRANSDERM. DAILY [facility] Last Admin: 12/31/19 08:14 Dose: 21 mg Documented by: Nitroglycerin (Nitrostat) 0.4 mg SUBLINGUAL Q5M PRN PRN Reason: CARDIAC/CHEST PAIN Ondansetron HCl (Zofran) 4 mg IV Q8H PRN PRN PRN Reason: NAUSEA/VOMITING Oxycodone HCl (Oxyir) 10 mg PO Q4H PRN PRN PRN Reason: Pain Score 4-5/10 Last Admin: 12/30/19 22:04 Dose: 10 mg Documented by: Prochlorperazine Edisylate (Compazine Iv) 5 mg IV Q4H PRN PRN PRN Reason: Breakthrough Nausea/Vomiting Psyllium Hydrophilic Mucilloid (Metamucil) 1 packet PO DAILY PRN PRN PRN Reason: Constipation Senna/Docusate Sodium (Senokot-S, Mackenzie-Colace) 2 tablet PO BID PRN PRN PRN Reason: Constipation Sodium Chloride () 10 - 40 ml IV UD PRN PRN Reason: SALINE FLUSH Last Admin: 12/31/19 11:25 Dose: 10 ml Documented by: Spironolactone (Aldactone) 25 mg PO QHS [facility] Last Admin: 12/30/19 21:57 Dose: 25 mg Documented by: Temazepam (Restoril) 15 mg PO QHS PRN PRN PRN Reason: INSOMNIA Throat Lozenges (Cepacol Sore Throat Lozenge) 1 lozenge MUCOUS MEM Q2H PRN PRN PRN Reason: SORE THROAT Discharge Activity: Return to Normal Activity Weight Bearing Status: Full weight bearing Call your doctor if you observe: Fever of 101 or Higher, Shortness of breath, Dizziness, Fainting spells, Chest pain, Increased palpitations (irregular heartbeat), Uncontrolled pain Home Medications: Medications to take at Discharge ALPRAZolam [Xanax] 0.5 mg PO TID PRN PRN 07/26/15 Lisinopril [Zestril] 40 mg PO QHS 07/26/15 traMADol [Ultram] 50 mg PO TID 07/26/15 Atorvastatin Calcium 20 mg PO QHS 05/28/19 Carvedilol 25 mg PO BID 05/28/19 Spironolactone 25 mg PO QHS 05/28/19 Levalbuterol HCl 1 inh INHALATION Q4H PRN 12/30/19 Levalbuterol Tartrate [Levalbuterol Tartrate Hfa] 1 - 2 puff INHALATION Q4H PRN 12/30/19 Pantoprazole Sodium [Protonix] 40 mg PO DAILY #30 tab 12/31/19 Following Prescrptions Were Given to Patient: Pantoprazole Sodium [Protonix] 40 mg PO DAILY #30 tab Transmission Status: Received by [facility] [facility] Primary Care Physician: Nate Gray MD [Primary Care Provider] - Please follow up with your Primary Care Physician in: 1-2 weeks. Please Follow Up With: Matt Lisa MD When: 4-6 weeks. Medical Necessity - Tobacco Use Smoking Status: Current every day smoker Tobacco Use: Cigarettes Meaningful Use Info Meaningful Use Diagnoses (Choose all that apply): None applicable OBSV E&M: 21783 Observation care discharge
--- NOTE | 2019-12-31 14:22 | US_ITS ---
STUDY: THYROID ULTRASOUND REASON FOR EXAM: Female, 64 years old. LOW TSH AND HYPERTHYROIDISM TECHNIQUE: Ultrasound evaluation of the thyroid was performed with real-time and static hutchins-scale imaging. COMPARISON: None. FINDINGS: RIGHT LOBE: The right lobe of the thyroid gland measures 5.1 x 1.9 x 2.4 cm. There is a heterogeneous echotexture. There are numerous tiny hypoechoic solid nodules. The largest nodule measures 9 x 8 x 6 mm LEFT LOBE: The left lobe of the thyroid gland measures 5 x 2.1 x 1.4 cm. There is a heterogeneous echotexture. Multiple tiny hypoechoic solid nodules. The largest nodule measures 6 x 6 x 4 mm ISTHMUS: The isthmus measures 3 mm . The regional lymph nodes are normal. US/Thyroid IMPRESSION: Findings consistent with multinodular goiter is likely benign adenomata or Ev''s disease. Clinical correlation recommended Electronically Signed: Kris Oneill MD at 16:56 EDT , Service support ,
--- NOTE | 2019-12-31 14:23 | PCM.PROGNOTE ---
Subjective: Chief complaint: Follow-up after admission for upper abdominal/epigastric/right upper quadrant abdominal pain and she was found to have a very low TSH. Patient seen and examined. No acute events overnight. This morning, her upper abdominal pain and right upper quadrant abdominal pain improved although she remained having tenderness on light palpation. She denied any nausea or vomiting. She was started on low fat diet and she did very well. HIDA scan performed and revealed presence of functional hepatobiliary disease probably dyskinesia. Patient was discharged but I find that her TSH was very low. Upon more questioning, patient does have episodes of anxiety and restlessness as well as palpitation that gets better with using her Coreg. She mentioned that she has been having difficulty speaking. She reported weight gain and good appetite. She denied difficulty swallowing. Her vital signs are stable. - Physical Exam Vitals/I&O's: Vital Signs Temp Pulse Resp BP Pulse Ox 98.7 F 97 16 150/72 H 97 12/31/19 14:02 12/31/19 14:02 12/31/19 14:02 12/31/19 14:02 12/31/19 14:02 Oxygen Delivery Method Room Air Weight: 132 lb 8 oz Body Mass Index (BMI) 26.3 Intake and Output for Last 24 Hours 12/29/19 12/30/19 12/31/19 23:59 23:59 23:59 Intake Total 2160 / 2160 1766.67 / 1766.67 Balance 2160 / 2160 1766.67 / 1766.67 General: Alert, Oriented x3, Cooperative, No apparent distress HEENT: Atraumatic, PERRLA, EOMI, Normocephalic Oral: Moist Mucosa, No Gingival or Mucosal Lesions/ Ulcerations Neck: Supple, No JVD, Negative Carotid Bruits, Trachea Midline, Thyroid Normal Size and Texture Lungs: Clear to auscultation, Normal air movement, No rhonchi, No wheeze, No rales Cardiovascular: Regular rate, Regular Rhythm, Normal S1, Normal S2, PMI Normal Abdomen: Bowel Sounds Present, Soft, Non Tender, Non-Distended, No Hepato-splenomegaly, - - Right upper quadrant tenderness. Extremities: No clubbing, No cyanosis, No edema Skin: No rashes, No breakdown Lymphatic: No Cervical, Supraclavicular, or Inguinal Adenopathy Neurological: Cranial nerves II-XII grossly intact, Neuro grossly intact Psych/Mental Status: Normal Affect, Appropriate Laboratory Results 12/30/19 15:20: WBC 9.6, RBC 4.52, Hgb 13.3, Hct 40.0, MCV 88.5, MCH 29.4, MCHC 33.3, RDW Std Deviation 53.3 H, RDW Coeff of Renea 16.4 H, Plt Count 362, MPV 10.2, Immature Gran % (Auto) 0.400, Neut % (Auto) 57.1, Lymph % (Auto) 29.0, [place] % (Auto) 10.1 H, Eos % (Auto) 2.8, Baso % (Auto) 0.6, Absolute Neuts (auto) 5.5, Absolute Lymphs (auto) 2.78, Nucleated RBC % 0, Differential Comment SCANNED, Platelet Estimate ADEQUATE, RBC Morphology NORM C+C 12/30/19 15:20: Sodium 130 L, Potassium 4.6, Chloride 98, Carbon Dioxide 26.0, Anion Gap 6, BUN 16, Creatinine 0.69, Estim Creat Clear Calc 79.97, Est GFR (MDRD) Af Amer 110, Est GFR (MDRD) Non-Af 91, BUN/Creatinine Ratio 23.2 H, Glucose 76, Calcium 9.1, Total Bilirubin 0.40, AST 33, ALT 37, Alkaline Phosphatase 105, Troponin I < 0.015, Total Protein 7.8, Albumin 3.5, Globulin 4.3 H, Albumin/Globulin Ratio 0.8 L, Lipase 219 12/30/19 16:00: Urine Color Straw, Urine Clarity Clear, Urine pH 7.0, Ur Specific [place] 1.010, Urine Protein Negative, Urine Glucose (UA) Normal, Urine Ketones Negative, Urine Occult Blood 10 H, Urine Nitrite Negative, Urine Bilirubin Negative, Urine Urobilinogen Normal, Ur Leukocyte Esterase Negative, Urine RBC 0 SEEN, Urine WBC 0 SEEN, Ur Squamous Epith Cells 0 SEEN, Urine Bacteria 0 SEEN, Urine Mucus 0 SEEN 12/30/19 16:00: Urine Opiates Screen NEGATIVE, Urine Methadone Screen NEGATIVE, Ur Barbiturates Screen NEGATIVE, Ur Phencyclidine Scrn NEGATIVE, Ur Amphetamines Screen NEGATIVE, U Methamphetamin-MDMA NEGATIVE, U Benzodiazepines Scrn POSITIVE H, Urine Cocaine Screen NEGATIVE, U Cannabinoids Screen NEGATIVE, Ur Drug Screen Comment 12/30/19 16:16: Lactic Acid 0.9 12/30/19 19:42: Magnesium 1.9, Troponin I < 0.015, TSH 0.01 L 12/30/19 20:23: Urine Osmolality 351 12/30/19 22:10: Ethyl Alcohol 5.0 12/30/19 22:10: Troponin I < 0.015 12/31/19 01:45: Troponin I < 0.015 12/31/19 05:45: WBC 6.7, RBC 4.93, Hgb 14.5, Hct 43.4, MCV 88.0, MCH 29.4, MCHC 33.4, RDW Std Deviation 42.5, RDW Coeff of Renea 13.2, Plt Count 241, MPV 10.8, Immature Gran % (Auto) 0.500, Neut % (Auto) 58.0, Lymph % (Auto) 26.4, [place] % (Auto) 10.5 H, Eos % (Auto) 3.5, Baso % (Auto) 1.1 H, Absolute Neuts (auto) 3.9, Absolute Lymphs (auto) 1.76, Nucleated RBC % 0 12/31/19 05:45: Sodium 134 L, Potassium 4.2, Chloride 104, Carbon Dioxide 19.0 L, Anion Gap 11, BUN 12, Creatinine 0.64, Estim Creat Clear Calc 84.26, Est GFR (MDRD) Af Amer 120, Est GFR (MDRD) Non-Af 99, BUN/Creatinine Ratio 18.8, Glucose 124 H, Calcium 8.7, Total Bilirubin 0.20, AST 46 H, ALT 54, Alkaline Phosphatase 108, Total Protein 7.0, Albumin 3.1 L, Globulin 3.9, Albumin/Globulin Ratio 0.8 L, Triglycerides 70, Cholesterol 140, LDL Cholesterol 71, VLDL Cholesterol 14, HDL Cholesterol 55 12/31/19 05:45: Free T4 Pending, Thyroxine (T4) Pending, Free T3 pg/dL Pending Clinical Impression(s) from Imaging Studies Chest CTA 12/30/19 16:55 IMPRESSION: Atherosclerotic changes of the aorta without evidence for aneurysm periaortic leak or dissection. Postop change status post resection of the colon and anterior pelvic wall herniorrhaphy. Mild nonspecific ileus. No evidence for small bowel obstruction or pneumoperitoneum. Dilated gallbladder without calcified stones indeterminate significance. If concern for gallbladder disease ultrasound recommended Stable appearance to solid nodule in the right kidney of indeterminate etiology.. Electronically Signed: Kris Oneill MD at 17:46 EDT , Service support , Abdomen/Pelvis CTA 12/30/19 16:56 IMPRESSION: Atherosclerotic changes of the aorta without evidence for aneurysm periaortic leak or dissection. Postop change status post resection of the colon and anterior pelvic wall herniorrhaphy. Mild nonspecific ileus. No evidence for small bowel obstruction or pneumoperitoneum. Dilated gallbladder without calcified stones indeterminate significance. If concern for gallbladder disease ultrasound recommended Stable appearance to solid nodule in the right kidney of indeterminate etiology.. Electronically Signed: Kris Oneill MD at 17:46 EDT , Service support , Gallbladder Ultrasound 12/30/19 18:05 IMPRESSION: Distended gallbladder with tiny stones without definitive evidence for acute inflammation. HIDA scan would be helpful for further evaluation if clinically warranted. Incidental finding of small hypoechoic nodule in the right kidney Electronically Signed: Kris Oneill MD at 18:47 EDT , Service support , Hepatobiliary Scan Nuclear Medicine 12/31/19 05:55 IMPRESSION: 1. ABNORMAL 99m Tc Mebrofenin hepatobiliary imaging examination with Cholecystokinin. A. A gallbladder ejection fraction calculated to be less than 35% following the administration of Cholecystokinin is consistent with the presence of functional hepatobiliary disease (gallbladder and/or sphincter of Oddi dyskinesia) and/or organic hepatobiliary disease (chronic acalculous cholecystitis and/or cystic duct syndrome) in patients with intermediate to high pretest likelihoods of hepatobiliary illness. (Jose Rondon et al, Journal of Nuclear Medicine 32:1695, 1991). Electronically Signed: Elie Perera DO at 11:12 EDT Tel , Service support , Current Medications Acetaminophen (Tylenol) 650 mg PO Q6H PRN PRN PRN Reason: Pain Score 1-10/Temp > 100.7 F Last Admin: 12/31/19 08:14 Dose: 650 mg Documented by: Al Hydroxide/Mg Hydroxide (Mylanta Ii) 30 ml PO Q6H PRN PRN PRN Reason: Gastric Burning Alprazolam (Xanax) 0.5 mg PO TID PRN PRN PRN Reason: ANXIETY/BLOOD PRESSURE Last Admin: 12/31/19 08:14 Dose: 0.5 mg Documented by: Aspirin (Ecotrin) 81 mg PO DAILY@0800 [facility] Last Admin: 12/31/19 14:00 Dose: Not Given Documented by: Atorvastatin Calcium (Lipitor) 20 mg PO QHS [facility] Last Admin: 12/30/19 21:57 Dose: 20 mg Documented by: Carvedilol (Coreg) 25 mg PO BID [facility] Last Admin: 12/31/19 08:14 Dose: 25 mg Documented by: Dextrose (D50w Syringe) 0 gm IV X1 PRN; Protocol PRN Reason: Hypoglycemia Enoxaparin Sodium (Lovenox) 40 mg SC DAILY [facility] Last Admin: 12/31/19 14:01 Dose: Not Given Documented by: Glucagon () 1 mg IM .X1 PRN PRN Reason: Hypoglycemia Guaifenesin (Robitussin) 20 ml PO Q4H PRN PRN PRN Reason: COUGH Hydralazine HCl (Apresoline Iv) 10 mg IV Q4H PRN PRN PRN Reason: SBP > 160 Sodium Chloride () 1,000 mls @ 125 mls/hr IV .Q8H [facility] Last Infusion: 12/31/19 14:00 Dose: Infused Documented by: Pantoprazole Sodium 40 mg/ (Sodium Chloride) 110 mls @ 330 mls/hr IV Q12 [facility] Last Infusion: 12/31/19 08:37 Dose: Infused Documented by: Sodium Chloride () 250 mls @ 15 mls/hr IV .[id number] PRN PRN Reason: Saline Flush Sodium Chloride () 250 mls @ 15 mls/hr IV .[id number] PRN PRN Reason: Additional IVPB Infusion Ipratropium [place] (Atrovent) 0.5 mg INHALATION Q4H.RT PRN PRN Reason: SHORTNESS OF BREATH Lisinopril (Zestril) 40 mg PO QHS [facility] Last Admin: 12/30/19 21:57 Dose: 40 mg Documented by: Magnesium Hydroxide (Milk Of Magnesia) 30 ml PO DAILY PRN PRN PRN Reason: Constipation Morphine Sulfate () 4 mg IV Q3H PRN PRN PRN Reason: Pain Score 6-10/10 Last Admin: 12/31/19 11:25 Dose: 4 mg Documented by: Nicotine (Nicoderm Cq (Pbkc)) 21 mg TRANSDERM. DAILY [facility] Last Admin: 12/31/19 08:14 Dose: 21 mg Documented by: Nitroglycerin (Nitrostat) 0.4 mg SUBLINGUAL Q5M PRN PRN Reason: CARDIAC/CHEST PAIN Ondansetron HCl (Zofran) 4 mg IV Q8H PRN PRN PRN Reason: NAUSEA/VOMITING Oxycodone HCl (Oxyir) 10 mg PO Q4H PRN PRN PRN Reason: Pain Score 4-5/10 Last Admin: 12/30/19 22:04 Dose: 10 mg Documented by: Prochlorperazine Edisylate (Compazine Iv) 5 mg IV Q4H PRN PRN PRN Reason: Breakthrough Nausea/Vomiting Psyllium Hydrophilic Mucilloid (Metamucil) 1 packet PO DAILY PRN PRN PRN Reason: Constipation Senna/Docusate Sodium (Senokot-S, [place]-Colace) 2 tablet PO BID PRN PRN PRN Reason: Constipation Sodium Chloride () 10 - 40 ml IV UD PRN PRN Reason: SALINE FLUSH Last Admin: 12/31/19 11:25 Dose: 10 ml Documented by: Spironolactone (Aldactone) 25 mg PO QHS [facility] Last Admin: 12/30/19 21:57 Dose: 25 mg Documented by: Temazepam (Restoril) 15 mg PO QHS PRN PRN PRN Reason: INSOMNIA Throat Lozenges (Cepacol Sore Throat Lozenge) 1 lozenge MUCOUS MEM Q2H PRN PRN PRN Reason: SORE THROAT Medical Necessity - Tobacco Use Smoking Status: Current every day smoker Tobacco Use: Cigarettes Assessment/Plan This is a 64 years old female patient admitted because of upper abdominal pain, epigastric and right upper quadrant abdominal pain with nausea and vomiting and also she was found to have a low TSH. #1 upper abdominal pain/epigastric/RUQ abdominal pain: Possibly due to biliary dyskinesia. Her routine blood work was unremarkable. LFT and lipase were normal. CTA of the abdomen and pelvis showed no acute findings, chronic findings reviewed. CTA chest showed no PE or dissection. EKG revealed no acute chronic changes. Troponin was negative x4. Ultrasound gallbladder revealed distended gallbladder with tiny stones without evidence of acute cholecystitis. General surgery consulted and recommended HIDA scan. HIDA scan revealed gallbladder ejection fraction to be less than 35% consistent with presence of functional hepatobiliary disease probably dyskinesia or organic hepatobiliary disease such as chronic acalculous cholecystitis. Patient is on IV fluids and IV pain medications as well as IV Protonix. Symptoms improved. General surgery stated that no indication for urgent surgery at this time and cholecystectomy can be done in the future. Patient started on low-fat diet and she did very well. Plan to continue OxyIR PRN for pain, continue Protonix. #2 probable hyperthyroidism: This was discovered after discharge instructions entered. TSH was very low. It was 0.01. Patient did have symptoms suggestive of hyperthyroidism including episodes of anxiety, restlessness and tachycardia and according to her, this improves after taking Coreg. I could not feel any significant lump or thyroid enlargement on palpation. At this time, her vital signs are stable. No clinical evidence of hyperthyroidism. Plan: Free and total T4, free T3, thyroid ultrasound. #3 hypertension: Blood pressure stable, continue Coreg and lisinopril, IV hydralazine PRN. #4 hyperlipidemia: Continue statins. #5 anxiety: Continue Xanax. #6 DVT prophylaxis: Subcu Lovenox. This note was generated with [employer] dictation software. It may contain incorrect words, spelling, and punctuation that were not noted in checking the note before signing. OBSV E&M: 37218 Subsequent observation care L2
[2019-12-31 14:43] LABS: Free T3 5.8 pg/mL (2.18-3.98)
--- NOTE | 2019-12-31 15:02 | PCM.PN.BLA ---
Progress Note I agree with Dr. Pyle. I reviewed the patient's imaging. The patient had very small stones with no pericholecystic fluid and her white count is normal with no left shift. She had a HIDA exam which showed biliary dyskinesia but it showed normal filling ruling out acute cholecystitis. Patient should be started on a low-fat diet and will follow-up with me for laparoscopic cholecystectomy in the future. Matt Lisa MD Pager: [facility] [address] [place] [address] [address] [place] [address] Office: [facility] Vital Signs/Narrative: Vital Signs Temp Pulse Resp BP Pulse Ox 12/31/19 14:02 98.7 F 97 16 150/72 H 97 12/31/19 11:23 98.1 F 88 18 121/58 H 96
[2019-12-31] MEDS: oxyCODONE 5 MG Tablet PO ×2 (15:31→19:28)
[2019-12-31] MEDS: Nicotine Polacrilex 2 MG GUM PO ×2 (18:07→20:41)
[2019-12-31] MEDS: Atorvastatin Calcium 20 MG Tablet PO (20:39)
[2019-12-31] MEDS: Lisinopril 40 MG Tablet PO (20:39)
[2020-01-01 01:28] VITALS: BP 119/67; PULSE 89; RESP 16; TEMP 36.7; O2SAT 95
[2020-01-01] MEDS: oxyCODONE 5 MG Tablet PO ×2 (01:28→07:08)
[2020-01-01] MEDS: ALPRAZolam 0.5 MG Tablet PO ×2 (01:29→08:41)
[2020-01-01] MEDS: Acetaminophen 325 MG Tablet 650 MG PO ×2 (01:29→07:29)
[2020-01-01 07:28] VITALS: BP 133/89; PULSE 87; RESP 16; TEMP 36.6; O2SAT 94
[2020-01-01 08:36] VITALS: BP 146/77; PULSE 89; RESP 16; TEMP 36.6; O2SAT 94
[2020-01-01] MEDS: Spironolactone 25 MG Tablet PO (08:41)
[2020-01-01] MEDS: Carvedilol 25 MG Tablet PO (08:42)
[2020-01-01] MEDS: Aspirin E.C. 81 MG Tablet PO (08:43)
[2020-01-01] MEDS: Pantoprazole Sodium 40 MG Tablet PO (08:46)
--- NOTE | 2020-01-01 10:33 | PCM.DC ---
- Discharge Diagnoses Current Active Problems: Current Active and Chronic Problems Anxiety (Chronic) You will use the following diet at home:: No restrictions, Other - avoid high fat foods Your food should be the consistency of: Regular Your liquids should be the consistency of: Regular/Thin Discharge Activity: Return to Normal Activity Weight Bearing Status: Full weight bearing Call your doctor if you observe: Fever of 101 or Higher, Shortness of breath, Dizziness, Fainting spells, Chest pain, Increased palpitations (irregular heartbeat), Uncontrolled pain Additional Instructions: Discuss your thyroid test results with Dr. Figueroa Allergies/Adverse Reactions: Allergies amlodipine Allergy (Verified 12/30/19 15:22) Unknown clonidine Allergy (Verified 12/30/19 15:22) Unknown adhesive Adverse Reaction (Verified 12/30/19 23:25) Rash albuterol Adverse Reaction (Verified 12/30/19 20:39) NEEDS FOLLOW-UP codeine Adverse Reaction (Verified 12/30/19 15:22) Nausea Medications to take at Discharge ALPRAZolam [Xanax] 0.5 mg PO TID PRN PRN 07/26/15 Lisinopril [Zestril] 40 mg PO QHS 07/26/15 traMADol [Ultram] 50 mg PO TID 07/26/15 Atorvastatin Calcium 20 mg PO QHS 05/28/19 Carvedilol 25 mg PO BID 05/28/19 Spironolactone 25 mg PO QHS 05/28/19 Levalbuterol HCl 1 inh INHALATION Q4H PRN 12/30/19 Levalbuterol Tartrate [Levalbuterol Tartrate Hfa] 1 - 2 puff INHALATION Q4H PRN 12/30/19 Primary Care Physician: Nate Gray MD [Primary Care Provider] - Please follow up with your Primary Care Physician in: as directed Test Results: Test results from this visit will be discussed in further detail at your follow-up appointment, if applicable. Please Follow Up With: Dk Amato MD When: in 4-6 weeks
--- NOTE | 2020-01-01 16:10 | DS.PCM_ITS ---
Discharge Date and Diagnosis Date of Admission: 12/30/19 Date of Discharge: 01/01/20 - Primary Discharge Diagnosis #1 biliary dyskinesia #2 hyperthyroidism #3 goiter #4 essential hypertension #5 hyperlipidemia - Secondary Discharge Diagnosis Chronic Problems Anxiety (Chronic) Smoker (Chronic) HLD (hyperlipidemia) (Chronic) HTN (hypertension) (Chronic) Alcohol abuse (Chronic) Hyponatremia (Chronic) Hospital Course and Treatment Operations: None Procedures: - - HIDA scan Summary of Care Provided: The patient is a 64 year old F who was seen in the emergency room at [facility] with chief complaint of chest pain which she described as sharp in nature radiating into her mid back area. Patient also complained of right upper quadrant discomfort. Work-up in the emergency room included an EKG which showed a normal sinus rhythm without acute ST changes, CBC was unremarkable, chemistries were unremarkable, liver function tests were unremarkable. Urinalysis was normal, troponin was normal. CT of the chest and the abdomen showed a distended gallbladder, gallbladder ultrasound was obtained which showed a distended gallbladder with small gallstones but no signs of acute cholecystitis. Patient was placed in observation status on PCU for upper abdominal pain felt to be probably secondary to her gallbladder, cardiac enzymes were cycled and these remained negative. Patient had a HIDA scan that indicated biliary dyskinesia, she was seen in consultation by general surgery who felt that the patient could be followed up as an outpatient concerning this. Patient's chest pain was likely secondary to her biliary dyskinesia. Patient was also noted to have a slightly low sodium on admission, this normalized somewhat during her hospital stay, she had a TSH which was low and other thyroid function tests were carried out which showed mild hyperthyroidism. Ultrasound of the patient's thyroid was obtained which showed evidence of a multinodular goiter. On 01/01/2020, patient was seen and examined: On examination she appeared in good health and spirits, she does not appear to be in any distress. Vital signs as documented. Skin warm and dry and without overt rashes. Neck without JVD, thyroid appears normal, trachea is midline, neck is supple. Lungs clear, normal air movement was noted. Heart exam notable for regular rhythm, normal sounds and absence of murmurs, rubs or gallops. Abdomen unremarkable and without evidence of organomegaly, masses, or abdominal aortic enlargement, bowel sounds are present in all 4 quadrants, no abdominal tenderness was noted. Extremities nonedematous, no cyanosis was noted, no clubbing was noted. Neuro: Cranial nerves II through XII are grossly intact, no focal motor deficits were noted, sensation to light touch and pinprick is intact, motor exam 5/5 throughout. Psych: Patient is alert and oriented x3, she does not appear anxious or depressed, she does not appear agitated. On 01/01/2020, patient was felt to be stable for discharge home, I called her PCP (Dr. Gray) to discuss her medical care with him, I discussed her thyroid ultrasound findings and her hyperthyroidism. Patient prefers to follow-up with Dr. Kike Amato regarding her gallbladder and she has been urged to make an appointment for follow-up sometime in the future. She will be following up with her PCP regarding her hyperthyroidism. - Physical Exam Vitals/I&O's: Vital Signs Temp Pulse Resp BP Pulse Ox 97.8 F 89 16 146/77 H 94 01/01/20 08:36 01/01/20 08:36 01/01/20 08:36 01/01/20 08:36 01/01/20 08:36 Oxygen Delivery Method Room Air Weight: 60.101 kg Body Mass Index (BMI) 26.3 Intake and Output for Last 24 Hours 12/30/19 12/31/19 01/01/20 23:59 23:59 23:59 Intake Total 2159.67 1160 / 1160 Balance 2159 1160 / 1160 Discharge Activity: Return to Normal Activity Weight Bearing Status: Full weight bearing Call your doctor if you observe: Fever of 101 or Higher, Shortness of breath, Dizziness, Fainting spells, Chest pain, Increased palpitations (irregular heartbeat), Uncontrolled pain Home Medications: Medications to take at Discharge ALPRAZolam [Xanax] 0.5 mg PO TID PRN PRN 07/26/15 Lisinopril [Zestril] 40 mg PO QHS 07/26/15 traMADol [Ultram] 50 mg PO TID 07/26/15 Atorvastatin Calcium 20 mg PO QHS 05/28/19 Carvedilol 25 mg PO BID 05/28/19 Spironolactone 25 mg PO QHS 05/28/19 Levalbuterol HCl 1 inh INHALATION Q4H PRN 12/30/19 Levalbuterol Tartrate [Levalbuterol Tartrate Hfa] 1 - 2 puff INHALATION Q4H PRN 12/30/19 Primary Care Physician: Nate Gray MD [Primary Care Provider] - Please follow up with your Primary Care Physician in: as directed Please Follow Up With: Matt Lisa MD When: 4-6 weeks. Please Follow Up With: Dk Amato MD When: in 4-6 weeks Disposition: Home Minutes spent on discharge:: 31 Patient Condition:: Stable Medical Necessity - Tobacco Use Smoking Status: Current every day smoker Tobacco Use: Cigarettes Meaningful Use Info Meaningful Use Diagnoses (Choose all that apply): None applicable OBSV E&M: 65669 Observation care discharge
== END 2020-01-01 10:35 | disposition home or self-care (01) ==
LOC: ED 15:39 → PCU 23:32
PROVIDERS: Hospitalist; Admitting Provider Family Medicine; Emergency Provider Emergency Medicine; PCP Internal Medicine; Visit Provider Internal Medicine
DX: K82.8 Other specified diseases of gallbladder (principal); I10 Essential (primary) hypertension; E78.5 Hyperlipidemia, unspecified; F17.210 Nicotine dependence, cigarettes, uncomplicated; F41.9 Anxiety disorder, unspecified; F10.21 Alcohol dependence, in remission; E87.1 Hypo-osmolality and hyponatremia; Z79.899 Other long term (current) drug therapy; Z87.11 Personal history of peptic ulcer disease; E05.00 Thyrotoxicosis with diffuse goiter without thyrotoxic crisis or storm
CPT/HCPCS: 36415; 71275; 74174; 76536; 76705; 78227; 80053; 80061; 80307; 80320; 81001; 83605; 83690; 83735; 83935; 84436; 84439; 84443; 84481; 84484; 85025; 93005; 96361; 96365; 96366; 96375; 96376; 99218; 99251; 99285; 99406; A9537; J7030; Q9967; A4216; G0378; G0463; G0480; J2405; J2805

== ENCOUNTER 2021-02-12 21:48 | Observation (INO) | payer MEDICARE, MEDICAID, SELFPAY ==
[2019-12-30 19:53] VITALS: BMI 26.3
[2021-02-12 21:49] VITALS: BP 220/108; PULSE 104; RESP 16; TEMP 36.6; O2SAT 97; BMI 26.0
--- NOTE | 2021-02-12 22:16 | EDS_ITS ---
HPI HPI - GI History of Present Illness Chief Complaint: Abd Pain Narrative Narrative: 65-year-old female presenting with left lower quadrant and left upper quadrant abdominal pain. She states that this started yesterday. Its gradually worsened. She states that she did exercise today and it started hurting after that. She denies any direct trauma. She denies black or bloody stools. She denies constipation or diarrhea. She has no nausea or vomiting. Has not had a fever or chills. She states he has a history of diverticulitis which she states ruptured as well as a splenic laceration which required surgical repair. PFSH PFSH Medical History Asthma COPD (chronic obstructive pulmonary disease) Hyperlipemia Hypertension Smoker Home Medications alprazolam 0.5 mg PO TID PRN PRN 07/26/15 [History Last Taken 12/30/19 08:00] lisinopril 40 mg PO QHS 07/26/15 [History Last Taken 12/29/19 21:00] tramadol 50 mg PO TID 07/26/15 [History Last Taken 12/30/19 15:00] atorvastatin 20 mg PO QHS 05/28/19 [History Last Taken 12/29/19 21:00] carvedilol 25 mg PO BID 05/28/19 [History Last Taken 12/30/19 12:00] spironolactone 25 mg PO QHS 05/28/19 [History Last Taken 12/29/19 21:00] levalbuterol HCl 1 inh INHALATION Q4H PRN 12/30/19 [History Last Taken Unknown] Chantix Starting Month Cezar 02/12/21 [History Last Taken Unknown] Xopenex HFA 2 ea Q4H PRN PRN 02/12/21 [History Last Taken Unknown] alprazolam 0.5 mg TID PRN PRN 02/12/21 [History Last Taken Unknown] buspirone 5 mg TID 02/12/21 [History Last Taken Unknown] gabapentin 600 mg QHS 02/12/21 [History Last Taken Unknown] pantoprazole 40 mg PO DAILY 02/12/21 [History Last Taken Unknown] psyllium [Metamucil] 1 packet PO DAILY 02/12/21 [History Last Taken Unknown] Allergy/AdvReac Type Severity Reaction Status Date / Time amlodipine Allergy Unknown Verified 02/12/21 21:49 clonidine Allergy Unknown Verified 02/12/21 21:49 adhesive AdvReac Rash Verified 02/12/21 21:49 albuterol AdvReac NEEDS Verified 02/12/21 21:49 FOLLOW-UP codeine AdvReac Nausea Verified 02/12/21 21:49 Social History Smoking Status: Current every day smoker ROS ROS ED Constitutional Constitutional ED: Denies chills, fever(s) or sweats Eyes Eyes: Denies blurry vision or change in vision ENT ENT ED: Denies ear pain or sore throat Cardiovascular Cardiovascular: Denies chest pain, palpitations or racing heartbeat Respiratory/Chest Respiratory/Chest: Denies cough, dyspnea or sputum Gastrointestinal Gastrointestinal: Reports abdominal pain; Denies constipation, diarrhea, nausea or vomiting Genitourinary Genitourinary ED: Denies dysuria, hematuria or urinary frequency Musculoskeletal Musculoskeletal: Denies arthralgias, myalgias or neck pain Integumentary Denies abscess, Abrasions or rash Neurologic Neurologic: Denies headache(s), paresthesias or weakness Psychiatric Psychiatric: Denies anxiety, depression, suicidal ideation or suicidal thoughts Endocrine Endocrinology: Denies polydipsia or polyuria EXAM Physical Exam Const Vital Signs: 02/12/21 21:49 02/13/21 00:00 Temperature 97.8 F Temperature Source Temporal Pulse Rate 104 H 82 Respiratory Rate 16 18 Blood Pressure 220/108 H 150/96 H Blood Pressure Mean 145 114 Pulse Ox 97 92 Oxygen Delivery Method Room Air Room Air General Appearance ED: Negative for pallor HEENT Reports normocephalic, head/scalp atraumatic and moist mucous membranes normocephalic and atraumatic Eyes PERRL and EOMs intact bilaterally Neck no lymphadenopathy and supple Chest Wall inspection of chest normal and palpation of chest normal Resp normal respiratory effort and clear to auscultation bilaterally Auscultation: Negative for rales, rhonchi or wheezes Cardio regular rate and regular rhythm GI normal to inspection, nondistended, normoactive bowel sounds GI Narrative: Left lower quadrant and left upper quadrant abdominal pain. Inspection: abdominal distention Palpation: Negative for pulsatile mass Narrative: Deferred Back/Spine no CVA tenderness General Back: Negative for CVA tenderness Cervical Spine: Negative for cervical spine tenderness Extremity normal to inspection General Extremety ED: Yes edema and tenderness General Extremity: edema Neuro oriented x3 and CN's II-XII intact bilaterally Sensorium / Orientation: alert Motor Exam: strength 5/5 throughout Psych mental status grossly normal Attitude: No agitated Skin no rashes or lesions noted and no wounds General Skin Exam: Negative for jaundice or pallor MDM MDM MDM Narrative Medical decision making narrative: Patient presenting with left-sided abdominal pain. She does have surgical history in the abdomen. Initially she was hypertensive but on reevaluation her blood pressure is 150/96. Heart rate is now 82. Patient was given 4 mg of morphine and 4 mg of Zofran on arrival. Blood work was obtained and is normal. On reevaluation patient was having more pain and was given 0.[address] of the abdomen pelvis is pending. Patient will be signed out to incoming ED doc for follow-up on CT imaging and disposition. Impression: 1. Abdominal pain Lab Data Attestation: I reviewed the patient's lab results. Labs: Laboratory Results - last 24 hr 02/12/21 02/12/21 02/12/21 22:25 22:25 22:40 WBC 9.7 RBC 4.29 Hgb 13.6 Hct 41.4 MCV 96.5 MCH 31.7 MCHC 32.9 RDW Std Deviation 52.7 H RDW Coeff of Renea 14.8 H Plt Count 394 MPV 10.5 Immature Gran % (Auto) 0.200 Neut % (Auto) 47.2 Lymph % (Auto) 41.0 [place] % (Auto) 8.7 Eos % (Auto) 2.4 Baso % (Auto) 0.5 Absolute Neuts (auto) 4.6 Absolute Lymphs (auto) 3.96 Nucleated RBC % 0 Sodium 138 Potassium 4.7 Chloride 106 Carbon Dioxide 28.0 Anion Gap 4 L BUN 15 Creatinine 0.88 Estim Creat Clear Calc 55.04 Est GFR (MDRD) Af Amer 83 Est GFR (MDRD) Non-Af 69 BUN/Creatinine Ratio 17.1 Glucose 82 Lactic Acid Calcium 8.7 Total Bilirubin 0.30 AST 22 ALT 30 Alkaline Phosphatase 113 Total Protein 7.9 Albumin 4.0 Globulin 3.9 Albumin/Globulin Ratio 1.0 Urine Color Straw Urine Clarity Clear Urine pH 7.0 Ur Specific [place] 1.005 Urine Protein 15 H Urine Glucose (UA) Normal Urine Ketones Negative Urine Occult Blood 25 H Urine Nitrite Negative Urine Bilirubin Negative Urine Urobilinogen Normal Ur Leukocyte Esterase Negative Urine RBC 0-5 SEEN Urine WBC 0 SEEN Ur Squamous Epith Cells 0 SEEN Urine Bacteria 0 SEEN Urine Mucus 0 SEEN 02/12/21 23:00 WBC RBC Hgb Hct MCV MCH MCHC RDW Std Deviation RDW Coeff of Renea Plt Count MPV Immature Gran % (Auto) Neut % (Auto) Lymph % (Auto) [place] % (Auto) Eos % (Auto) Baso % (Auto) Absolute Neuts (auto) Absolute Lymphs (auto) Nucleated RBC % Sodium Potassium Chloride Carbon Dioxide Anion Gap BUN Creatinine Estim Creat Clear Calc Est GFR (MDRD) Af Amer Est GFR (MDRD) Non-Af BUN/Creatinine Ratio Glucose Lactic Acid 0.5 Calcium Total Bilirubin AST ALT Alkaline Phosphatase Total Protein Albumin Globulin Albumin/Globulin Ratio Urine Color Urine Clarity Urine pH Ur Specific [place] Urine Protein Urine Glucose (UA) Urine Ketones Urine Occult Blood Urine Nitrite Urine Bilirubin Urine Urobilinogen Ur Leukocyte Esterase Urine RBC Urine WBC Ur Squamous Epith Cells Urine Bacteria Urine Mucus Discharge Plan Triage Chief Complaint: Abd Pain ED Provider: Ebenezer Roberts Dx/Rx/DC Orders Prescriptions: No Action tramadol 50 MG tablet 50 mg PO TID RF: 0 alprazolam 0.5 MG tablet 0.5 mg PO TID PRN PRN (Reason: ANXIETY/BLOOD PRESSURE) RF: 0 lisinopril 40 MG tablet 40 mg PO QHS RF: 0 carvedilol 25 MG tablet 25 mg PO BID RF: 0 atorvastatin 20 MG tablet 20 mg PO QHS RF: 0 spironolactone 25 MG tablet 25 mg PO QHS RF: 0 levalbuterol HCl 1.25 mg/3 mL solution for nebulization 1 inh inhalation Q4H PRN (Reason: Sob &/Or Wheezing) RF: 0 alprazolam 0.5 mg tablet 0.5 mg TID PRN PRN (Reason: Anxiety) RF: 0 buspirone 5 mg tablet 5 mg TID RF: 0 gabapentin 300 mg capsule 600 mg QHS RF: 0 Chantix Starting Month Cezar RF: 0 Metamucil Packet 1 packet PO DAILY RF: 0 pantoprazole 40 mg Tablet,Delayed Release (Dr/Ec) 40 mg PO DAILY RF: 0 Xopenex HFA 2 ea Q4H PRN PRN (Reason: Cough) RF: 0 Primary Care Provider: Nate Gray
[2021-02-12 22:45] LABS: Bacteria 0 SEEN /hpf (None Seen); Mucous, Urine 0 SEEN /hpf (<or=2+); Squamous Epithelial Cells - UA 0 SEEN /hpf (5-10); White Blood Cells 0 SEEN /hpf (0-5)
[2021-02-12 22:48] LABS: Absolute Lymphocyte Count 3.96 X10^3/uL (0.83-4.51); Absolute Neutrophil Count 4.6 X10^3/uL (2.0-7.7); Basophil# 0.05 X10^3/uL; Basophil% 0.5 % (0-1); Eosinophil# 0.23 X10^3/uL; Eosinophils% 2.4 % (0-5); Hematocrit 41.4 % (37-47); Hemoglobin 13.6 g/dL (12.0-15.0); Lymphocyte # 3.96 X10^3/ul (0.83-4.51); Mean Corp Hgb Conc 32.9 g/dL (32-36); Mean Corpuscular Hgb 31.7 pg (27.0-32.0); Mean Corpuscular Volume 96.5 fL (81-99); Mean Platelet Vol. 10.5 fl (6.2-12.0); Monocyte# 0.84 X10^3/uL; Monocyte% 8.7 % (0-10); NRBC Flagged by Analyzer 0 % (0-5); Neutrophil # 4.56 X10^3/uL (2.7-7.7); Neutrophil % 47.2 % (47-70); Platelet Count 394 K/mm3 (150-450); RBC Distribution Width CV 14.8 % (11.6-14.6); RBC Distribution Width SD 52.7 fl (35.1-43.9); Red Blood Count 4.29 M/mm3 (4.2-5.4); White Blood Count 9.7 K/mm3 (4.4-11.0)
[2021-02-12 22:50] LABS: Color, Urine Straw (Yellow); Glucose, Dipstick Normal (Normal); Ketone-Dipstick Negative (Negative); Leukocyte Esterase-Dipstick Negative /ul (Negative); Nitrite-Dipstick Negative (Negative); Occult Blood-Urine 25 /ul (Negative); Protein-Dipstick 15 mg/dl (Negative); Specific Gravity, Urine 1.005 (1.002-1.030); Urine Bilirubin Dipstick Negative (Negative); Urine Clarity Clear (Clear); Urine Urobilinogen Normal (Normal)
[2021-02-12 22:57] LABS: Red Blood Cells-Urine 0-5 SEEN /hpf (0-5)
[2021-02-12] MEDS: Morphine 4 MG/ML Syringe IV (22:57)
[2021-02-12] MEDS: Ondansetron 4 MG/2 ML Vial IV (22:58)
[2021-02-12 23:07] LABS: AST(SGOT) 22 U/L (15-37); Alanine Aminotransfer ALT/SGPT 30 U/L (13-56); Alkaline Phosphatase 113 U/L (45-117); Anion Gap 4 (5-15); BUN 15 mg/dL (7-18); BUN/Creat Ratio 17.1 RATIO (10-20); Calcium,Total 8.7 mg/dL (8.5-10.1); Chloride 106 mmol/L (98-107); Creatinine, Serum 0.88 mg/dL (0.55-1.02); EST Glomerular Filtration Rate 69 mL/min (>60); Est Glom Filt Rate - Afr Amer 83 mL/min (>60); Estimated Creatinine Clearance 55.04 ml/min; Globulin 3.9 g/dL (2.2-4.2); Glucose 82 mg/dL (74-106); Potassium 4.7 mmol/L (3.5-5.1); Protein, Total 7.9 g/dL (6.4-8.2); Sodium Level 138 mmol/L (136-145)
[2021-02-12 23:40] LABS: Lactic Acid 0.5 mmol/L (0.4-1.9)
[2021-02-13] VITALS (10 sets, daily range): BP systolic 111–162; BP diastolic 61–96; PULSE 78–97; RESP 18–20; TEMP 36.2–37.2; O2SAT 89–96; BMI 29.2
[2021-02-13] MEDS: HYDROmorphone 0.5 MG/0.5 ML SYRINGE IV (00:45)
--- NOTE | 2021-02-13 02:07 | RAD_ITS ---
STUDY: X-RAY CHEST REASON FOR EXAM: Female, 65 years old. Cough TECHNIQUE: Single AP portable view of the chest. COMPARISON: May 28, 2019 chest x-ray FINDINGS: The lungs are clear and expanded. There is no demonstrated pleural abnormality. Normal size heart. Normal mediastinum and trisha. Normal visualized pulmonary arteries. There is atherosclerotic calcification of the aortic arch with tortuosity. There is a levoscoliosis of the thoracic spine. There are prior fractures of left ribs 7 and 8 and 9. There is a radiopaque density in the left upper quadrant suggesting postoperative change possible embolization coils.. RAD/Chest 1 View (Portable) IMPRESSION: Degenerative changes, as described above. No demonstrated acute cardiopulmonary process. Electronically Signed: Natividad Moser MD at 3:18 EDT Tel , Service support ,
[2021-02-13] MEDS: Morphine 4 MG/ML Syringe IV (03:08)
--- NOTE | 2021-02-13 03:13 | PCM.HP.STD ---
HPI - General General Date of Admission: 02/13/21 Chief Complaint: Abdominal pain HPI Narrative BAHMAN MICHELE, is a 65 F HTN; Alcohol abuse in remission; tobacco abuse; extensive abdominal surgery with hernia repair colostomy with colostomy reversal; splenic laceration requiring repair; and diverticulitis who presents to the emergency department with progressively worsening left lower quadrant pain that started 2 days ago after exercise. Her pain radiates to her left upper quadrant. She is unable to describe the quality of the pain. Her pain worsens with movements and is improved with applying pressure. She denies any nausea or vomiting. She denies constipation. Her daughter who was with patient thinks that patient is more congested in her chest. PFSH Medical History Alcohol abuse Asthma COPD (chronic obstructive pulmonary disease) H/O spleen injury HLD (hyperlipidemia) Hyperlipemia Hypertension Smoker Home Medications alprazolam 0.5 mg PO TID PRN PRN 07/26/15 [History Last Taken 12/30/19 08:00] lisinopril 40 mg PO QHS 07/26/15 [History Last Taken 12/29/19 21:00] tramadol 50 mg PO TID 07/26/15 [History Last Taken 12/30/19 15:00] atorvastatin 20 mg PO QHS 05/28/19 [History Last Taken 12/29/19 21:00] carvedilol 25 mg PO BID 05/28/19 [History Last Taken 12/30/19 12:00] spironolactone 25 mg PO QHS 05/28/19 [History Last Taken 12/29/19 21:00] levalbuterol HCl 1 inh INHALATION Q4H PRN 12/30/19 [History Last Taken Unknown] Chantix Starting Month Cezar 02/12/21 [History Last Taken Unknown] Xopenex HFA 2 ea Q4H PRN PRN 02/12/21 [History Last Taken Unknown] alprazolam 0.5 mg TID PRN PRN 02/12/21 [History Last Taken Unknown] buspirone 5 mg TID 02/12/21 [History Last Taken Unknown] gabapentin 600 mg QHS 02/12/21 [History Last Taken Unknown] pantoprazole 40 mg PO DAILY 02/12/21 [History Last Taken Unknown] psyllium [Metamucil] 1 packet PO DAILY 02/12/21 [History Last Taken Unknown] Allergy/AdvReac Type Severity Reaction Status Date / Time amlodipine Allergy Unknown Verified 02/12/21 21:49 clonidine Allergy Unknown Verified 02/12/21 21:49 adhesive AdvReac Rash Verified 02/12/21 21:49 albuterol AdvReac NEEDS Verified 02/12/21 21:49 FOLLOW-UP codeine AdvReac Nausea Verified 02/12/21 21:49 Family History (Updated 02/13/21 @ 04:[address] Aaron Welsh MD) Mother Heart disease Hypertension Surgical History (Updated 02/13/21 @ 04:[address] Aaron Welsh MD) H/O colostomy H/O: History of hernia repair Social History (Updated 02/13/21 @ 04:[address] Aaron Welsh MD) Smoking Status: Current every day smoker alcohol intake: former ROS ROS Narrative 12 point review of system is negative except as stated in HPI. Vital Signs Vital Signs Vital Signs: 02/12/21 21:49 02/13/21 00:00 02/13/21 01:24 Temperature 97.8 F Temperature Source Temporal Pulse Rate 104 H 82 87 Respiratory Rate 16 18 20 H Blood Pressure 220/108 H 150/96 H 162/75 H Blood Pressure Mean 145 114 104 Pulse Ox 97 92 89 Oxygen Delivery Method Room Air Room Air Room Air Oxygen Flow Rate (L/min) 02/13/21 02:51 02/13/21 03:08 Temperature 97.2 F L Temperature Source Temporal Pulse Rate 82 82 Respiratory Rate 18 18 Blood Pressure 160/86 H 160/86 H Blood Pressure Mean 110 110 Pulse Ox 96 96 Oxygen Delivery Method Nasal Cannula Nasal Cannula Oxygen Flow Rate (L/min) 2 2 Physical Exam Narrative Alert and oriented x3 Nontraumatic; normocephalic Lung clear to auscultate Heart sounds S1-S2. No murmur, gallop or rubs. Abdomen bowel sounds present soft. Left lower quadrant tender. Nondistended. Extremity without edema; cyanosis or clubbing. Lab / Micro Data Result Diagrams: 02/12/21 22:25 02/12/21 22:25 Labs: Laboratory Results - last 24 hr 02/12/21 02/12/21 02/12/21 22:25 22:25 22:40 WBC 9.7 RBC 4.29 Hgb 13.6 Hct 41.4 MCV 96.5 MCH 31.7 MCHC 32.9 RDW Std Deviation 52.7 H RDW Coeff of Renea 14.8 H Plt Count 394 MPV 10.5 Immature Gran % (Auto) 0.200 Neut % (Auto) 47.2 Lymph % (Auto) 41.0 [place] % (Auto) 8.7 Eos % (Auto) 2.4 Baso % (Auto) 0.5 Absolute Neuts (auto) 4.6 Absolute Lymphs (auto) 3.96 Nucleated RBC % 0 Sodium 138 Potassium 4.7 Chloride 106 Carbon Dioxide 28.0 Anion Gap 4 L BUN 15 Creatinine 0.88 Estim Creat Clear Calc 55.04 Est GFR (MDRD) Af Amer 83 Est GFR (MDRD) Non-Af 69 BUN/Creatinine Ratio 17.1 Glucose 82 Lactic Acid Calcium 8.7 Total Bilirubin 0.30 AST 22 ALT 30 Alkaline Phosphatase 113 Total Protein 7.9 Albumin 4.0 Globulin 3.9 Albumin/Globulin Ratio 1.0 Urine Color Straw Urine Clarity Clear Urine pH 7.0 Ur Specific [place] 1.005 Urine Protein 15 H Urine Glucose (UA) Normal Urine Ketones Negative Urine Occult Blood 25 H Urine Nitrite Negative Urine Bilirubin Negative Urine Urobilinogen Normal Ur Leukocyte Esterase Negative Urine RBC 0-5 SEEN Urine WBC 0 SEEN Ur Squamous Epith Cells 0 SEEN Urine Bacteria 0 SEEN Urine Mucus 0 SEEN 02/12/21 23:00 WBC RBC Hgb Hct MCV MCH MCHC RDW Std Deviation RDW Coeff of Renea Plt Count MPV Immature Gran % (Auto) Neut % (Auto) Lymph % (Auto) [place] % (Auto) Eos % (Auto) Baso % (Auto) Absolute Neuts (auto) Absolute Lymphs (auto) Nucleated RBC % Sodium Potassium Chloride Carbon Dioxide Anion Gap BUN Creatinine Estim Creat Clear Calc Est GFR (MDRD) Af Amer Est GFR (MDRD) Non-Af BUN/Creatinine Ratio Glucose Lactic Acid 0.5 Calcium Total Bilirubin AST ALT Alkaline Phosphatase Total Protein Albumin Globulin Albumin/Globulin Ratio Urine Color Urine Clarity Urine pH Ur Specific [place] Urine Protein Urine Glucose (UA) Urine Ketones Urine Occult Blood Urine Nitrite Urine Bilirubin Urine Urobilinogen Ur Leukocyte Esterase Urine RBC Urine WBC Ur Squamous Epith Cells Urine Bacteria Urine Mucus Radiology Impression Abdomen/Pelvis CT 02/13/21 22:27 IMPRESSION: Constipation diverticulosis no diverticulitis. Multiple areas of postoperative change. There is mild distention of the proximal small bowel and a relative smaller caliber decompressed appearance of the mid to distal small bowel. Findings suspicious for partial small bowel obstruction or developing small bowel obstruction for which a follow-up is warranted. Adhesions are of concern in this patient with multiple areas of postoperative change. Postoperative change posterior to the pancreas. Interval resolved with a large fluid collection within the liver. Stable left renal cyst. Mild left pelviectasis. Small left adrenal adenoma for potential. Pancreatic pseudocyst. Follow-up study is suggested when appropriate. Ventral hernia repair. Electronically Signed: Natividad Moser MD at 1:12 EDT Tel , Service support , Assessment & Plan Assessment/Plan (1) SBO (small bowel obstruction): (2) Adenoma: (3) Anxiety: (4) Smoker: (5) HTN (hypertension): QUALIFIERS: Hypertension type: essential hypertension Qualified Code(s): I10 - Essential (primary) hypertension (6) Peptic ulcer disease: PLAN: Partial small bowel obstruction Abdomen/pelvic CT showed postoperative changes and small bowel obstruction or developing small bowel obstruction. Emergency department doctor discussed the case with general surgery who recommended admission to medical team. We will keep patient n.p.o. Supportive treatment with lactated Ringer's. Morphine pain for pain. Patient is fearful that she may develop headaches from a coffee withdrawal while n.p.o. Okay to give Tylenol with sips of water. General surgery consult. Adenoma CT abdomen pelvis showed incidentaloma of small left adrenal adenoma. A.m. cortisol and plasma catecholamines ordered. Anxiety disorder: While n.p.o. hold Xanax. As needed Ativan ordered. Tobacco abuse Patient and her are to begin Chantix outpatient soon. While inpatient patient is amenable to receiving nicotine patch. Nicotine patch prescribed. Counseled. Hypertension Blood pressure is not within goal. Hold home lisinopril and Aldactone. Scheduled Vasotec ordered. As needed hydralazine IV ordered Pepcid ulcer disease On home p.o. Protonix while n.p.o. Protonix IV ordered. COPD/emphysema On home Xopenex. Reports unable to tolerate albuterol. As needed ipratropium ordered. DVT prophylaxis: SCD ordered. Visit Charges Inpatient E&M: 10994 Init Hosp L3
[2021-02-13] MEDS: Lactated Ringers 1,000 ML 75 ML IV (04:31)
[2021-02-13] MEDS: Morphine 2 MG/ML Syringe IV ×2 (05:44→10:29)
[2021-02-13] MEDS: Acetaminophen 325 MG Tablet 650 MG PO ×2 (05:58→10:29)
[2021-02-13 06:59] LABS: Absolute Lymphocyte Count 3.28 X10^3/uL (0.83-4.51); Absolute Neutrophil Count 5.5 X10^3/uL (2.0-7.7); Basophil# 0.04 X10^3/uL; Basophil% 0.4 % (0-1); Hematocrit 40.4 % (37-47); Hemoglobin 12.8 g/dL (12.0-15.0); Lymphocyte # 3.28 X10^3/ul (0.83-4.51); Lymphocyte % 33.4 % (19-41); Mean Corp Hgb Conc 31.7 g/dL (32-36); Mean Corpuscular Hgb 31.1 pg (27.0-32.0); Mean Corpuscular Volume 98.1 fL (81-99); Mean Platelet Vol. 9.8 fl (6.2-12.0); Monocyte# 0.83 X10^3/uL; Monocyte% 8.4 % (0-10); NRBC Flagged by Analyzer 0 % (0-5); Neutrophil # 5.46 X10^3/uL (2.7-7.7); Neutrophil % 55.6 % (47-70); Platelet Count 323 K/mm3 (150-450); RBC Distribution Width CV 14.8 % (11.6-14.6); RBC Distribution Width SD 53.9 fl (35.1-43.9); Red Blood Count 4.12 M/mm3 (4.2-5.4); White Blood Count 9.8 K/mm3 (4.4-11.0)
[2021-02-13] MEDS: Enalaprilat 1.25 MG/ML Vial IV (07:15)
--- NOTE | 2021-02-13 07:34 | EX.PCM.CON.S ---
Assessment & Plan Assessment/Plan (1) SBO (small bowel obstruction): PLAN: This morning patient denies any abdominal pain states her abdomen is back to normal size no longer distended. Patient denies having flatus her last bowel movement was yesterday a.m. We will check a KUB to see if the contrast had moved into the colon. Of contrast in the colon will advance diet. Caitlin Mccoy M.D. Pager: [phone] [facility] [address] [place] [address], Outpatient [facility], [address] [place] [address] Office: [phone] HPI Consult Data Date of Consult: 02/14/21 HPI Narrative HPI Narrative: BAHMAN MICHELE, is a 65 F who presents to the ER due to abdominal distention and pain. Patient does have past surgical history for perforated diverticulitis/colostomy/reversal of colostomy/ventral hernia repair with a large piece of mesh by Dr. Amato this was in 2004/2005. Patient denies having any history of previous bowel obstructions. Patient CT abdomen pelvis, possible small bowel obstruction. Patient denies any nausea did not have an NG placed in the ER. This morning patient states her abdominal pain is resolved and her abdomen is normal size. PFSH Medical History Alcohol abuse Anxiety Asthma COPD (chronic obstructive pulmonary disease) H/O spleen injury HLD (hyperlipidemia) Hyperlipemia Hypertension Osteoarthritis Smoker Home Medications lisinopril 40 mg PO QHS 07/26/15 [History Last Taken 12/29/19 21:00] tramadol 50 mg PO TID 07/26/15 [History Last Taken 12/30/19 15:00] atorvastatin 20 mg PO QHS 05/28/19 [History Last Taken 12/29/19 21:00] carvedilol 25 mg PO BID 05/28/19 [History Last Taken 12/30/19 12:00] spironolactone 25 mg PO QHS 05/28/19 [History Last Taken 12/29/19 21:00] levalbuterol HCl 1 inh INHALATION Q6H PRN PRN 12/30/19 [History Last Taken Unknown] Chantix Starting Month Cezar 0.5 mg PO/SL DAILY 02/12/21 [History Last Taken Unknown] Xopenex HFA 2 ea Q4H PRN PRN 02/12/21 [History Last Taken Unknown] alprazolam 0.5 mg PO TID PRN PRN 02/12/21 [History Last Taken Unknown] gabapentin 600 mg PO QHS 02/12/21 [History Last Taken Unknown] pantoprazole 40 mg PO DAILY 02/12/21 [History Last Taken Unknown] psyllium 1 packet PO DAILY 02/12/21 [History Last Taken Unknown] albuterol sulfate 2 puff INHALATION Q4H PRN 02/13/21 [History Last Taken Unknown] diphenhydramine-acetaminophen [Tylenol PM Extra Strength] 1,000 tab PO QHS PRN PRN 02/13/21 [History Last Taken Unknown] Allergy/AdvReac Type Severity Reaction Status Date / Time amlodipine Allergy Unknown Verified 02/12/21 21:49 clonidine Allergy Unknown Verified 02/12/21 21:49 adhesive AdvReac Rash Verified 02/12/21 21:49 albuterol AdvReac NEEDS Verified 02/12/21 21:49 FOLLOW-UP codeine AdvReac Nausea Verified 02/12/21 21:49 Family History (Updated 02/13/21 @ 04:[address] Aaron Welsh MD) Mother Heart disease Hypertension Surgical History H/O colostomy H/O: History of hernia repair Social History (Updated 02/13/21 @ 04:[address] Aaron Welsh MD) Smoking Status: Current every day smoker alcohol intake: former ROS Constitutional Constitutional: Denies fatigue ENT HEENT: Denies dizziness Cardiovascular Cardiovascular: Denies chest pain Respiratory/Chest Respiratory/Chest: Denies shortness of breath at rest Gastrointestinal Gastrointestinal: Reports abdominal pain and bloating; Denies constipation, diarrhea, heartburn, hematemesis or vomiting Genitourinary Genitourinary: Denies burning urination Musculoskeletal Musculoskeletal: Denies joint pain Integumentary Integumentary: Denies rash Neurologic Neurologic: Denies focal weakness Endocrine Endocrinology: Denies palpitations Hematologic/Lymphatic Hematologic/Lymphatic: Reports anemia; Denies easy bleeding or easy bruising Physical Exam Const alert, oriented x3 and no apparent distress HEENT normocephalic and head/scalp atraumatic Resp normal respiratory effort Cardio regular rate GI soft to palpation, non-tender and non-distended Palpation: Negative for guarding Extremity no clubbing, cyanosis or edema Neuro CN's II-XII intact bilaterally Psych mental status grossly normal Lab / Micro Data Result Diagrams: 02/13/21 05:51 02/13/21 05:51 Labs: Laboratory Results - last 24 hr 02/12/21 02/12/21 02/12/21 22:25 22:25 22:40 WBC 9.7 RBC 4.29 Hgb 13.6 Hct 41.4 MCV 96.5 MCH 31.7 MCHC 32.9 RDW Std Deviation 52.7 H RDW Coeff of Renea 14.8 H Plt Count 394 MPV 10.5 Immature Gran % (Auto) 0.200 Neut % (Auto) 47.2 Lymph % (Auto) 41.0 [place] % (Auto) 8.7 Eos % (Auto) 2.4 Baso % (Auto) 0.5 Absolute Neuts (auto) 4.6 Absolute Lymphs (auto) 3.96 Nucleated RBC % 0 Sodium 138 Potassium 4.7 Chloride 106 Carbon Dioxide 28.0 Anion Gap 4 L BUN 15 Creatinine 0.88 Estim Creat Clear Calc 55.04 Est GFR (MDRD) Af Amer 83 Est GFR (MDRD) Non-Af 69 BUN/Creatinine Ratio 17.1 Glucose 82 Lactic Acid Calcium 8.7 Total Bilirubin 0.30 AST 22 ALT 30 Alkaline Phosphatase 113 Total Protein 7.9 Albumin 4.0 Globulin 3.9 Albumin/Globulin Ratio 1.0 Urine Color Straw Urine Clarity Clear Urine pH 7.0 Ur Specific [place] 1.005 Urine Protein 15 H Urine Glucose (UA) Normal Urine Ketones Negative Urine Occult Blood 25 H Urine Nitrite Negative Urine Bilirubin Negative Urine Urobilinogen Normal Ur Leukocyte Esterase Negative Urine RBC 0-5 SEEN Urine WBC 0 SEEN Ur Squamous Epith Cells 0 SEEN Urine Bacteria 0 SEEN Urine Mucus 0 SEEN 02/12/21 02/13/21 23:00 05:51 WBC 9.8 RBC 4.12 L Hgb 12.8 Hct 40.4 MCV 98.1 MCH 31.1 MCHC 31.7 L RDW Std Deviation 53.9 H RDW Coeff of Renea 14.8 H Plt Count 323 MPV 9.8 Immature Gran % (Auto) 0.200 Neut % (Auto) 55.6 Lymph % (Auto) 33.4 [place] % (Auto) 8.4 Eos % (Auto) 2.0 Baso % (Auto) 0.4 Absolute Neuts (auto) 5.5 Absolute Lymphs (auto) 3.28 Nucleated RBC % 0 Sodium Potassium Chloride Carbon Dioxide Anion Gap BUN Creatinine Estim Creat Clear Calc Est GFR (MDRD) Af Amer Est GFR (MDRD) Non-Af BUN/Creatinine Ratio Glucose Lactic Acid 0.5 Calcium Total Bilirubin AST ALT Alkaline Phosphatase Total Protein Albumin Globulin Albumin/Globulin Ratio Urine Color Urine Clarity Urine pH Ur Specific Rhodes Urine Protein Urine Glucose (UA) Urine Ketones Urine Occult Blood Urine Nitrite Urine Bilirubin Urine Urobilinogen Ur Leukocyte Esterase Urine RBC Urine WBC Ur Squamous Epith Cells Urine Bacteria Urine Mucus Radiology Impression Chest X-Ray 02/13/21 02:07 IMPRESSION: Degenerative changes, as described above. No demonstrated acute cardiopulmonary process. Electronically Signed: Natividad Moser MD at 3:18 EDT Tel , Service support , Abdomen/Pelvis CT 02/13/21 22:27 IMPRESSION: Constipation diverticulosis no diverticulitis. Multiple areas of postoperative change. There is mild distention of the proximal small bowel and a relative smaller caliber decompressed appearance of the mid to distal small bowel. Findings suspicious for partial small bowel obstruction or developing small bowel obstruction for which a follow-up is warranted. Adhesions are of concern in this patient with multiple areas of postoperative change. Postoperative change posterior to the pancreas. Interval resolved with a large fluid collection within the liver. Stable left renal cyst. Mild left pelviectasis. Small left adrenal adenoma for potential. Pancreatic pseudocyst. Follow-up study is suggested when appropriate. Ventral hernia repair. Electronically Signed: Natividad Moser MD at 1:12 EDT Tel , Service support , Charges/Coding Visit Charges Inpatient E&M: 09275 Init Hosp L3
[2021-02-13 07:36] LABS: Anion Gap 8 (5-15); BUN 11 mg/dL (7-18); BUN/Creat Ratio 16.7 RATIO (10-20); Calcium,Total 8.5 mg/dL (8.5-10.1); Chloride 105 mmol/L (98-107); Creatinine, Serum 0.66 mg/dL (0.55-1.02); EST Glomerular Filtration Rate 95 mL/min (>60); Est Glom Filt Rate - Afr Amer 115 mL/min (>60); Estimated Creatinine Clearance 89.61 ml/min; Glucose 81 mg/dL (74-106); Sodium Level 140 mmol/L (136-145)
--- NOTE | 2021-02-13 07:37 | RAD_ITS ---
STUDY: X-RAY - ABDOMEN/PELVIS REASON FOR EXAM: Female, 65 years old. sbo -- portable TECHNIQUE: Two AP supine views of the abdomen and pelvis. COMPARISON: Is CT of abdomen and pelvis dated FEBRUARY 13, 2021 FINDINGS: Normal visualized lung bases. There is an unremarkable bowel gas pattern. There is no demonstrated free abdominal air. The visualized liver, spleen and kidneys are grossly normal in size and morphology. Reidentification of hernia mesh. Oral contrast is seen throughout the colon. The bladder is filled with contrast. Normal soft tissue structures. Normal visualized osseous structures. RAD/Abdomen Single View (Portable) IMPRESSION: No demonstrated bowel obstruction Electronically Signed: Gee Saul MD at 10:34 EDT , Service support ,
[2021-02-13] MEDS: 0.9% Saline Lock 10 ML Syringe IV (10:28)
--- NOTE | 2021-02-13 11:59 | PCM.PN.HOSP ---
Documented by User: Sunitha Zhou NP, [employer] 02/13/21 12:09 Subjective Subjective: Patient seen and examined. Denies abdominal pain, nausea, vomiting. Tolerated full liquid diet for breakfast. Complains of mild abdominal bloating. No bowel movement, passing flatus. Objective Data Objective Data Vital Signs: Vital Signs Temp Pulse Resp BP Pulse Ox 98.2 F 90 20 H 111/61 91 02/13/21 08:13 02/13/21 08:31 02/13/21 08:13 02/13/21 08:13 02/13/21 08:13 Oxygen Flow Rate (L/min) 2 Oxygen Delivery Method Nasal Cannula Weight: 147 lb 4.301 oz Body Mass Index (BMI) 29.2 Intake & Output: Intake and Output for Last 24 Hours 02/11/21 02/12/21 02/13/21 23:59 23:59 23:59 Intake Total 431.25 / 431.25 Balance 431.25 / 431.25 Lab / Micro Data Result Diagrams: 02/13/21 05:51 02/13/21 05:51 Labs: Laboratory Results - last 24 hr 02/12/21 02/12/21 02/12/21 22:25 22:25 22:40 WBC 9.7 RBC 4.29 Hgb 13.6 Hct 41.4 MCV 96.5 MCH 31.7 MCHC 32.9 RDW Std Deviation 52.7 H RDW Coeff of Renea 14.8 H Plt Count 394 MPV 10.5 Immature Gran % (Auto) 0.200 Neut % (Auto) 47.2 Lymph % (Auto) 41.0 [place] % (Auto) 8.7 Eos % (Auto) 2.4 Baso % (Auto) 0.5 Absolute Neuts (auto) 4.6 Absolute Lymphs (auto) 3.96 Nucleated RBC % 0 Sodium 138 Potassium 4.7 Chloride 106 Carbon Dioxide 28.0 Anion Gap 4 L BUN 15 Creatinine 0.88 Estim Creat Clear Calc 55.04 Est GFR (MDRD) Af Amer 83 Est GFR (MDRD) Non-Af 69 BUN/Creatinine Ratio 17.1 Glucose 82 Lactic Acid Calcium 8.7 Total Bilirubin 0.30 AST 22 ALT 30 Alkaline Phosphatase 113 Total Protein 7.9 Albumin 4.0 Globulin 3.9 Albumin/Globulin Ratio 1.0 Urine Color Straw Urine Clarity Clear Urine pH 7.0 Ur Specific [place] 1.005 Urine Protein 15 H Urine Glucose (UA) Normal Urine Ketones Negative Urine Occult Blood 25 H Urine Nitrite Negative Urine Bilirubin Negative Urine Urobilinogen Normal Ur Leukocyte Esterase Negative Urine RBC 0-5 SEEN Urine WBC 0 SEEN Ur Squamous Epith Cells 0 SEEN Urine Bacteria 0 SEEN Urine Mucus 0 SEEN 02/12/21 02/13/21 02/13/21 23:00 05:51 05:51 WBC 9.8 RBC 4.12 L Hgb 12.8 Hct 40.4 MCV 98.1 MCH 31.1 MCHC 31.7 L RDW Std Deviation 53.9 H RDW Coeff of Renea 14.8 H Plt Count 323 MPV 9.8 Immature Gran % (Auto) 0.200 Neut % (Auto) 55.6 Lymph % (Auto) 33.4 [place] % (Auto) 8.4 Eos % (Auto) 2.0 Baso % (Auto) 0.4 Absolute Neuts (auto) 5.5 Absolute Lymphs (auto) 3.28 Nucleated RBC % 0 Sodium 140 Potassium 4.0 Chloride 105 Carbon Dioxide 27.0 Anion Gap 8 BUN 11 Creatinine 0.66 Estim Creat Clear Calc 89.61 Est GFR (MDRD) Af Amer 115 Est GFR (MDRD) Non-Af 95 BUN/Creatinine Ratio 16.7 Glucose 81 Lactic Acid 0.5 Calcium 8.5 Total Bilirubin AST ALT Alkaline Phosphatase Total Protein Albumin Globulin Albumin/Globulin Ratio Urine Color Urine Clarity Urine pH Ur Specific [place] Urine Protein Urine Glucose (UA) Urine Ketones Urine Occult Blood Urine Nitrite Urine Bilirubin Urine Urobilinogen Ur Leukocyte Esterase Urine RBC Urine WBC Ur Squamous Epith Cells Urine Bacteria Urine Mucus Radiography Diagnostic Testing: Radiology Impression Chest X-Ray 02/13/21 02:07 IMPRESSION: Degenerative changes, as described above. No demonstrated acute cardiopulmonary process. Electronically Signed: Natividad Moser MD at 3:18 EDT Tel , Service support , KUB X-Ray 02/13/21 07:37 IMPRESSION: No demonstrated bowel obstruction Electronically Signed: Gee Saul MD at 10:34 EDT , Service support , Abdomen/Pelvis CT 02/13/21 22:27 IMPRESSION: Constipation diverticulosis no diverticulitis. Multiple areas of postoperative change. There is mild distention of the proximal small bowel and a relative smaller caliber decompressed appearance of the mid to distal small bowel. Findings suspicious for partial small bowel obstruction or developing small bowel obstruction for which a follow-up is warranted. Adhesions are of concern in this patient with multiple areas of postoperative change. Postoperative change posterior to the pancreas. Interval resolved with a large fluid collection within the liver. Stable left renal cyst. Mild left pelviectasis. Small left adrenal adenoma for potential. Pancreatic pseudocyst. Follow-up study is suggested when appropriate. Ventral hernia repair. Electronically Signed: Natividad Moser MD at 1:12 EDT Tel , Service support , Physical Exam Const alert, oriented x3 and no apparent distress Orientation / Consciousness: awake, oriented to person, oriented to place and oriented to time HEENT normocephalic and moist oral mucous membranes Eyes PERRL, EOMs intact bilaterally and conjunctivae normal Neck no lymphadenopathy Resp normal respiratory effort and clear to auscultation bilaterally Cardio regular rate, regular rhythm and no murmurs Peripheral Pulses: pulses 2+ throughout GI normal to inspection, nondistended, normoactive bowel sounds, non-tender and non-distended Extremity normal to inspection Skin no rashes or lesions noted Lesions: no lesions Rashes: no rashes Trauma: no lacerations or abrasions Neuro oriented x3 Sensorium / Orientation: awake and alert Psych affect normal Assessment & Plan Assessment/Plan (1) SBO (small bowel obstruction): PLAN: 1. Small bowel obstruction-improved. Advance diet. General surgery following. 2. Left adrenal adenoma- Recommend outpatient follow-up. Cortisol, troponin ordered on admission, pending. 3. Tobacco dependence-nicotine replacement patch. 4. Anxiety-on as needed Xanax. 5. Chronic COPD- As needed albuterol aerosol. 6. Peptic ulcer disease-continue PPI. 7. Hypertension-continue home lisinopril, Aldactone. 8. Hyperthyroidism/multinodular goiter- continue outpatient follow up. DVT prophylaxis-SCDs This patient was seen by POLI Chavez under the supervision of Dr. Harper. Documented by User: Dr. Maria Dolores Harper MD 02/13/21 15:33 Objective Data Lab / Micro Data Result Diagrams: 02/13/21 05:51 02/13/21 05:51 Addendum Patient seen by POLI Chavez under my supervision Patient seen and examined. She was admitted with a complaint of abdominal pain and found to have small bowel obstruction. She had a KUB today which showed that contrast has passed into her colon and she is passing gas. She is tolerating full liquid diet and plan is to discharge patient home after to tolerate a regular diet. Patient seen and examined. For physical examination details, please see my addendum in the discharge summary by POLI Chavez Rest as per POLI Chavez's note which I reviewed and endorsed
[2021-02-13] MEDS: traMADol 50 MG Tablet PO (12:05)
[2021-02-13] MEDS: ALPRAZolam 0.5 MG Tablet PO (12:05)
--- NOTE | 2021-02-13 12:23 | PCM.DC ---
Discharge Instructions Diet Discharge Diet: Light diet - advance as tolerated Activity Discharge Activity: Return to Normal Activity Dressing / Incision Call your doctor if you observe: Inability to have a bowel movement Suture Line Care: - (Abdominal pain) Follow Up Care Test Results: Test results from this visit will be discussed in further detail at your follow-up appointment, if applicable. Discharge Plan Admission Admit Date/Time: 02/13/21 03:13 Attending Provider: Maria Dolores Harper Primary Care Provider: Nate Gray Consulting Providers: Caitlin Mccoy Discharge Orders/Prescriptions Prescriptions: Continued tramadol 50 MG tablet 50 mg PO TID RF: 0 lisinopril 40 MG tablet 40 mg PO QHS RF: 0 carvedilol 25 MG tablet 25 mg PO BID RF: 0 atorvastatin 20 MG tablet 20 mg PO QHS RF: 0 spironolactone 25 MG tablet 25 mg PO QHS RF: 0 levalbuterol HCl 1.25 mg/3 mL solution for nebulization 1 inh inhalation Q6H PRN PRN (Reason: Sob &/Or Wheezing) RF: 0 alprazolam 0.5 mg tablet 0.5 mg PO TID PRN PRN (Reason: Anxiety) RF: 0 gabapentin 300 mg capsule 600 mg PO QHS RF: 0 Chantix Starting Month Cezar 0.5 mg PO/SL DAILY RF: 0 psyllium Packet 1 packet PO DAILY RF: 0 pantoprazole 40 mg Tablet,Delayed Release (Dr/Ec) 40 mg PO DAILY RF: 0 Xopenex HFA 2 ea Q4H PRN PRN (Reason: Cough) RF: 0 albuterol sulfate 90 mcg/actuation Hfa Aerosol Inhaler 2 puff INHALATION Q4H PRN (Reason: breathing) RF: 0 diphenhydramine-acetaminophen [Tylenol PM Extra Strength] 25-500 mg Tablet 1,000 tab PO QHS PRN PRN (Reason: Sleep) RF: 0 Referrals / Follow Up: Caitlin Mccoy MD [STAFF PHYSICIAN] - In 1 Week Nate Gray MD [Primary Care Provider] - In 1 Week Disposition Disposition (needs filled in before D/C Order can be placed): Home, self care
--- NOTE | 2021-02-13 12:26 | PCM.DC.SUM ---
Documented by User: Sunitha Zhou NP, PSYCHIATRIC NURSING ASSISTANT-C 02/13/21 12:37 Providers Date of Admission: 02/13/21 Primary Care Physician: Dr. Nate Gray MD Consultations 02/13/21 04:15 Consult: General Surgery Routine Consulting Provider: Caitlin Mccoy Reason for Consult: sbo EMERGENT Consult: No MD Notified: Yes Date Notified:: 02/13/21 Time Notified: 07:31 Method of Notification: Text Reason For Visit: SMALL BOWEL OBSTRUCTION Diagnosis Discharge Diagnosis (1) SBO (small bowel obstruction): Status: Acute Code(s): K56.609 - Unspecified intestinal obstruction, unspecified as to partial versus complete obstruction Medications at Discharge Home Medications lisinopril 40 mg PO QHS 07/26/15 tramadol 50 mg PO TID 07/26/15 atorvastatin 20 mg PO QHS 05/28/19 carvedilol 25 mg PO BID 05/28/19 spironolactone 25 mg PO QHS 05/28/19 levalbuterol HCl 1 inh INHALATION Q6H PRN PRN 12/30/19 Chantix Starting Month Cezar 0.5 mg PO/SL DAILY 02/12/21 Xopenex HFA 2 ea Q4H PRN PRN 02/12/21 alprazolam 0.5 mg PO TID PRN PRN 02/12/21 gabapentin 600 mg PO QHS 02/12/21 pantoprazole 40 mg PO DAILY 02/12/21 psyllium 1 packet PO DAILY 02/12/21 albuterol sulfate 2 puff INHALATION Q4H PRN 02/13/21 diphenhydramine-acetaminophen [Tylenol PM Extra Strength] 1,000 tab PO QHS PRN PRN 02/13/21 Hospital Course Operations None Procedures None Summary of Care Provided Minutes Spent on Discharge: 35 Hospital Course: Patient is a 65-year-old female admitted 02/13/2021 due to abdominal pain. 1. Small bowel obstruction-resolved. General surgery consulted during admission. Patient has extensive abdominal surgery history with ventral hernia repair, colostomy, colostomy reversal and perforated diverticulitis. CT of abdomen/pelvis on admission showed postoperative changes in small bowel obstruction or developing early small bowel obstruction. Follow-up KUB showed no bowel obstruction. Patient tolerating diet. Passing flatus. Follow-up with PCP in 1 week. Follow-up with general surgery in 1 week as well. 2. Left adrenal adenoma- Recommend outpatient follow-up. Cortisol, troponin ordered on admission, pending. 3. Tobacco dependence-nicotine replacement patch. 4. Anxiety-on as needed Xanax. 5. Chronic COPD- As needed albuterol aerosol. 6. Peptic ulcer disease-continue PPI. 7. Hypertension-continue home lisinopril, Aldactone. 8. Hyperthyroidism/multinodular goiter- continue outpatient follow up. Physical Exam Const alert, oriented x3 and no apparent distress Orientation / Consciousness: awake, oriented to person, oriented to place and oriented to time HEENT normocephalic and moist oral mucous membranes Eyes PERRL, EOMs intact bilaterally and conjunctivae normal Neck no lymphadenopathy Resp normal respiratory effort and clear to auscultation bilaterally Cardio regular rate, regular rhythm and no murmurs Peripheral Pulses: pulses 2+ throughout GI normal to inspection, nondistended, normoactive bowel sounds, non-tender and non-distended Extremity normal to inspection Skin no rashes or lesions noted Lesions: no lesions Rashes: no rashes Trauma: no lacerations or abrasions Neuro oriented x3 Sensorium / Orientation: awake and alert Psych affect normal Patient seen and examined prior to discharge. Physical assessment as noted above. Patient is stable for discharge with follow up recommendations as noted above. This patient was seen by POLI Chavez under the supervision of Dr. Harper. ABG / Lab / Microbiology Data Result Diagrams: 02/13/21 05:51 02/13/21 05:51 Laboratory: Laboratory Results - last 24 hr 02/12/21 02/12/21 02/12/21 22:25 22:25 22:40 WBC 9.7 RBC 4.29 Hgb 13.6 Hct 41.4 MCV 96.5 MCH 31.7 MCHC 32.9 RDW Std Deviation 52.7 H RDW Coeff of Renea 14.8 H Plt Count 394 MPV 10.5 Immature Gran % (Auto) 0.200 Neut % (Auto) 47.2 Lymph % (Auto) 41.0 [place] % (Auto) 8.7 Eos % (Auto) 2.4 Baso % (Auto) 0.5 Absolute Neuts (auto) 4.6 Absolute Lymphs (auto) 3.96 Nucleated RBC % 0 Sodium 138 Potassium 4.7 Chloride 106 Carbon Dioxide 28.0 Anion Gap 4 L BUN 15 Creatinine 0.88 Estim Creat Clear Calc 55.04 Est GFR (MDRD) Af Amer 83 Est GFR (MDRD) Non-Af 69 BUN/Creatinine Ratio 17.1 Glucose 82 Lactic Acid Calcium 8.7 Total Bilirubin 0.30 AST 22 ALT 30 Alkaline Phosphatase 113 Total Protein 7.9 Albumin 4.0 Globulin 3.9 Albumin/Globulin Ratio 1.0 Urine Color Straw Urine Clarity Clear Urine pH 7.0 Ur Specific [place] 1.005 Urine Protein 15 H Urine Glucose (UA) Normal Urine Ketones Negative Urine Occult Blood 25 H Urine Nitrite Negative Urine Bilirubin Negative Urine Urobilinogen Normal Ur Leukocyte Esterase Negative Urine RBC 0-5 SEEN Urine WBC 0 SEEN Ur Squamous Epith Cells 0 SEEN Urine Bacteria 0 SEEN Urine Mucus 0 SEEN 02/12/21 02/13/21 02/13/21 23:00 05:51 05:51 WBC 9.8 RBC 4.12 L Hgb 12.8 Hct 40.4 MCV 98.1 MCH 31.1 MCHC 31.7 L RDW Std Deviation 53.9 H RDW Coeff of Renea 14.8 H Plt Count 323 MPV 9.8 Immature Gran % (Auto) 0.200 Neut % (Auto) 55.6 Lymph % (Auto) 33.4 [place] % (Auto) 8.4 Eos % (Auto) 2.0 Baso % (Auto) 0.4 Absolute Neuts (auto) 5.5 Absolute Lymphs (auto) 3.28 Nucleated RBC % 0 Sodium 140 Potassium 4.0 Chloride 105 Carbon Dioxide 27.0 Anion Gap 8 BUN 11 Creatinine 0.66 Estim Creat Clear Calc 89.61 Est GFR (MDRD) Af Amer 115 Est GFR (MDRD) Non-Af 95 BUN/Creatinine Ratio 16.7 Glucose 81 Lactic Acid 0.5 Calcium 8.5 Total Bilirubin AST ALT Alkaline Phosphatase Total Protein Albumin Globulin Albumin/Globulin Ratio Urine Color Urine Clarity Urine pH Ur Specific [place] Urine Protein Urine Glucose (UA) Urine Ketones Urine Occult Blood Urine Nitrite Urine Bilirubin Urine Urobilinogen Ur Leukocyte Esterase Urine RBC Urine WBC Ur Squamous Epith Cells Urine Bacteria Urine Mucus Radiography Diagnostic Testing: Radiology Impression Chest X-Ray 02/13/21 02:07 IMPRESSION: Degenerative changes, as described above. No demonstrated acute cardiopulmonary process. Electronically Signed: Natividad Moser MD at 3:18 EDT Tel , Service support , KUB X-Ray 02/13/21 07:37 IMPRESSION: No demonstrated bowel obstruction Electronically Signed: Gee Saul MD at 10:34 EDT , Service support , Abdomen/Pelvis CT 02/13/21 22:27 IMPRESSION: Constipation diverticulosis no diverticulitis. Multiple areas of postoperative change. There is mild distention of the proximal small bowel and a relative smaller caliber decompressed appearance of the mid to distal small bowel. Findings suspicious for partial small bowel obstruction or developing small bowel obstruction for which a follow-up is warranted. Adhesions are of concern in this patient with multiple areas of postoperative change. Postoperative change posterior to the pancreas. Interval resolved with a large fluid collection within the liver. Stable left renal cyst. Mild left pelviectasis. Small left adrenal adenoma for potential. Pancreatic pseudocyst. Follow-up study is suggested when appropriate. Ventral hernia repair. Electronically Signed: Natividad Moser MD at 1:12 EDT Tel , Service support , D/C Instructions Discharge Diet: Light diet - advance as tolerated Discharge Activity: Return to Normal Activity Call your doctor if you observe: Inability to have a bowel movement Suture Line Care: - (Abdominal pain) Meaningful Use Info Meaningful Use Diagnoses (Choose all that apply): None applicable Discharge Plan Admission Admit Date/Time: 02/13/21 03:13 Attending Provider: Maria Dolores Harper Primary Care Provider: Nate Gray Consulting Providers: Caitlin Mccoy Discharge Orders/Prescriptions Prescriptions: Continued tramadol 50 MG tablet 50 mg PO TID RF: 0 lisinopril 40 MG tablet 40 mg PO QHS RF: 0 carvedilol 25 MG tablet 25 mg PO BID RF: 0 atorvastatin 20 MG tablet 20 mg PO QHS RF: 0 spironolactone 25 MG tablet 25 mg PO QHS RF: 0 levalbuterol HCl 1.25 mg/3 mL solution for nebulization 1 inh inhalation Q6H PRN PRN (Reason: Sob &/Or Wheezing) RF: 0 alprazolam 0.5 mg tablet 0.5 mg PO TID PRN PRN (Reason: Anxiety) RF: 0 gabapentin 300 mg capsule 600 mg PO QHS RF: 0 Chantix Starting Month Cezar 0.5 mg PO/SL DAILY RF: 0 psyllium Packet 1 packet PO DAILY RF: 0 pantoprazole 40 mg Tablet,Delayed Release (Dr/Ec) 40 mg PO DAILY RF: 0 Xopenex HFA 2 ea Q4H PRN PRN (Reason: Cough) RF: 0 albuterol sulfate 90 mcg/actuation Hfa Aerosol Inhaler 2 puff INHALATION Q4H PRN (Reason: breathing) RF: 0 diphenhydramine-acetaminophen [Tylenol PM Extra Strength] 25-500 mg Tablet 1,000 tab PO QHS PRN PRN (Reason: Sleep) RF: 0 Referrals / Follow Up: Caitlin Mccoy MD [STAFF PHYSICIAN] - In 1 Week Nate Gray MD [Primary Care Provider] - In 1 Week Disposition Disposition (needs filled in before D/C Order can be placed): Home, self care Documented by User: Dr. Maria Dolores Harper MD 02/13/21 15:30 Providers Date of Admission: 02/13/21 Reason For Visit: SMALL BOWEL OBSTRUCTION Medications at Discharge Home Medications lisinopril 40 mg PO QHS 07/26/15 tramadol 50 mg PO TID 07/26/15 atorvastatin 20 mg PO QHS 05/28/19 carvedilol 25 mg PO BID 05/28/19 spironolactone 25 mg PO QHS 05/28/19 levalbuterol HCl 1 inh INHALATION Q6H PRN PRN 12/30/19 Chantix Starting Month Cezar 0.5 mg PO/SL DAILY 02/12/21 Xopenex HFA 2 ea Q4H PRN PRN 02/12/21 alprazolam 0.5 mg PO TID PRN PRN 02/12/21 gabapentin 600 mg PO QHS 02/12/21 pantoprazole 40 mg PO DAILY 02/12/21 psyllium 1 packet PO DAILY 02/12/21 albuterol sulfate 2 puff INHALATION Q4H PRN 02/13/21 diphenhydramine-acetaminophen [Tylenol PM Extra Strength] 1,000 tab PO QHS PRN PRN 02/13/21 ABG / Lab / Microbiology Data Result Diagrams: 02/13/21 05:51 02/13/21 05:51 Discharge Plan Admission Admit Date/Time: 02/13/21 03:13 Attending Provider: Maria Dolores Harper Primary Care Provider: Nate Gray Consulting Providers: Caitlin Mccoy Discharge Orders/Prescriptions Prescriptions: Continued tramadol 50 MG tablet 50 mg PO TID RF: 0 lisinopril 40 MG tablet 40 mg PO QHS RF: 0 carvedilol 25 MG tablet 25 mg PO BID RF: 0 atorvastatin 20 MG tablet 20 mg PO QHS RF: 0 spironolactone 25 MG tablet 25 mg PO QHS RF: 0 levalbuterol HCl 1.25 mg/3 mL solution for nebulization 1 inh inhalation Q6H PRN PRN (Reason: Sob &/Or Wheezing) RF: 0 alprazolam 0.5 mg tablet 0.5 mg PO TID PRN PRN (Reason: Anxiety) RF: 0 gabapentin 300 mg capsule 600 mg PO QHS RF: 0 Chantix Starting Month Cezar 0.5 mg PO/SL DAILY RF: 0 psyllium Packet 1 packet PO DAILY RF: 0 pantoprazole 40 mg Tablet,Delayed Release (Dr/Ec) 40 mg PO DAILY RF: 0 Xopenex HFA 2 ea Q4H PRN PRN (Reason: Cough) RF: 0 albuterol sulfate 90 mcg/actuation Hfa Aerosol Inhaler 2 puff INHALATION Q4H PRN (Reason: breathing) RF: 0 diphenhydramine-acetaminophen [Tylenol PM Extra Strength] 25-500 mg Tablet 1,000 tab PO QHS PRN PRN (Reason: Sleep) RF: 0 Referrals / Follow Up: Caitlin Mccoy MD [STAFF PHYSICIAN] - In 1 Week Nate Gray MD [Primary Care Provider] - In 1 Week Disposition Disposition (needs filled in before D/C Order can be placed): Home, self care Addendum Addendum: Patient seen by Sunitha ASHTON under my supervision Patient seen and examined. She was admitted with complaint of abdominal pain and found to have small bowel obstruction. She was kept n.p.o. and general surgery was consulted. Patient had a KUB this morning which showed contrast in the colon and she was also passing gas. She was started on a full liquid diet which she tolerated and diet was successfully advanced which she also tolerated. She remained stable and was discharged home on 02/13/2021 is to follow-up with her primary care doctor with general surgery. Patient seen and examined prior to discharge. She had no complaints and feels much better than when she came in. Review systems otherwise negative. Labs and vitals reviewed. Medication reviewed and reconciled. O/E: Const alert, oriented x3 and no apparent distress Orientation / Consciousness: awake, oriented to person, oriented to place and oriented to time HEENT normocephalic and moist oral mucous membranes Eyes PERRL, EOMs intact bilaterally and conjunctivae normal Neck no lymphadenopathy Resp normal respiratory effort and clear to auscultation bilaterally Cardio regular rate, regular rhythm and no murmurs Peripheral Pulses: pulses 2+ throughout GI normal to inspection, nondistended, normoactive bowel sounds, non-tender and non-distended Extremity normal to inspection Skin no rashes or lesions noted Lesions: no lesions Rashes: no rashes Trauma: no lacerations or abrasions Neuro oriented x3 Sensorium / Orientation: awake and alert Psych affect normal Of note, CAT scan of the abdomen done on admission also showed a left adrenal adenoma and follow-up with PCP on outpatient basis from 1 referral to plastics supervisor as needed. Patient was discharged home on 02/13/2021. Patient seen in my supervision by POLI Chavez, who's note I have reviewed and endorsed. Visit Charges OBSV E&M: 33369 Observ/hosp same date L2
--- NOTE | 2021-02-13 22:27 | CT_ITS ---
STUDY: CT ABDOMEN AND PELVIS WITH CONTRAST REASON FOR EXAM: Female, 65 years old. Abdominal pain -- IV PO Contrast RADIATION DOSAGE (If Supplied By Facility): CTDIvol = ( 18.37 ) mGy, DLP = ( 768.49 ) mGycm TECHNIQUE: Transaxial images were obtained from the dome of the diaphragm to the symphysis pubis with oral contrast. Oral and amp; IV Breeza Neutral and amp; 100mL Isovue-370 was administered. Sagittal and coronal images were reconstructed. Individualized dose optimization techniques were used for this CT. COMPARISON: August 21, 2019 CT scan abdomen and pelvis FINDINGS: The visualized lung bases are unremarkable. The visualized portions of the heart are within normal limits. Normal liver. Normal gallbladder and extrahepatic biliary system. Since prior study the large fluid collection with gas in the spleen has resolved. There is apparent scarring in the midline. There is a focus of metallic artifact within the posterior aspect of pancreas. Postoperative change could have this appearance. Just posterior to the left splenic vein there is a small low attenuating cystic structure measuring 1.0 cm. This may represent a small adrenal nodule versus the possibility of a small pseudocyst or mass not seen on prior studies. Right adrenal gland appears normal. Normal right kidney. There is an exophytic left renal cyst measuring 1.8 cm. There is mild left pelviectasis. There are no visualized stones along the course of the left ureter. Normal visualized stomach. Mildly distended loops of proximal small bowel present. There is a decompressed lesser caliber appearance of the distal small bowel. There is moderate stool in the colon. There are multiple areas of postoperative change. Sigmoid colon, distal small bowel. There is also a visualized wide hernia mesh throughout the anterior abdomen. There is visualized diverticulosis without diverticulitis. The appendix is visualized and appears normal. Aorta is partially calcified. This calcification take over the renal arteries. Normal inferior vena cava. Normal retroperitoneum. Normal urinary bladder. Normal abdominal wall. There are diffuse degenerative changes of the visualized lumbar spine. CT/Abdomen/Pelvis WITH Contrast IMPRESSION: Constipation diverticulosis no diverticulitis. Multiple areas of postoperative change. There is mild distention of the proximal small bowel and a relative smaller caliber decompressed appearance of the mid to distal small bowel. Findings suspicious for partial small bowel obstruction or developing small bowel obstruction for which a follow-up is warranted. Adhesions are of concern in this patient with multiple areas of postoperative change. Postoperative change posterior to the pancreas. Interval resolved with a large fluid collection within the liver. Stable left renal cyst. Mild left pelviectasis. Small left adrenal adenoma for potential. Pancreatic pseudocyst. Follow-up study is suggested when appropriate. Ventral hernia repair. Electronically Signed: Natividad Moser MD at 1:12 EDT Tel , Service support ,
[2021-02-17 12:08] LABS: Epinephrine, Pl <15 pg/mL (0-62); Norepinephrine, Pl 546 pg/mL (0-874)
[2021-02-17 15:25] LABS: Dopamine, Pl <30 pg/mL (0-48)
== END 2021-02-13 14:07 | disposition home or self-care (01) | DRG 390 ==
LOC: ED 02-13 00:43 → MS3 02-13 07:16
PROVIDERS: Student in an Organized Health Care Education/Training Program; Admitting Provider Hospitalist; Emergency Provider Emergency Medicine; PCP Internal Medicine; Visit Provider Student in an Organized Health Care Education/Training Program
DX: K56.609 Unspecified intestinal obstruction, unspecified as to partial versus complete obstruction (principal); J43.9 Emphysema, unspecified; E78.5 Hyperlipidemia, unspecified; I10 Essential (primary) hypertension; F17.200 Nicotine dependence, unspecified, uncomplicated; F10.11 Alcohol abuse, in remission; F41.9 Anxiety disorder, unspecified; D35.02 Benign neoplasm of left adrenal gland; K57.90 Diverticulosis of intestine, part unspecified, without perforation or abscess without bleeding; K27.9 Peptic ulcer, site unspecified, unspecified as acute or chronic, without hemorrhage or perforation; M19.90 Unspecified osteoarthritis, unspecified site; E05.20 Thyrotoxicosis with toxic multinodular goiter without thyrotoxic crisis or storm; Z79.899 Other long term (current) drug therapy
CPT/HCPCS: 36415; 71045; 74018; 74177; 80048; 80053; 81001; 82384; 82533; 83605; 85025; 96361; 96365; 96375; 96376; 99218; 99285; J7030; J7120; Q9967; A4216; G0378; J2405

== ENCOUNTER → 2021-03-26 08:54 | Outpatient (CLI) | payer MEDICARE, MEDICAID, SELFPAY ==
[2021-03-21 13:43] VITALS: BMI 29.2
--- NOTE | 2021-03-26 08:55 | US_ITS ---
STUDY: ABDOMINAL ULTRASOUND REASON FOR EXAM: Female, 66 years old. Gallstones and pseudocyst of pancreas TECHNIQUE: Transabdominal ultrasound was performed with real-time and static hutchins scale imaging. TECHNICAL QUALITY: Limited. Examination limited by bowel gas. COMPARISON: None. FINDINGS: Liver: The liver measures 15.8 cm. There is increased echogenicity consistent with fatty infiltration. The bile ducts are within normal limits. There is hepatic color flow. The direction of portal flow is hepatopetal. There is no demonstrated mass lesion. Gallbladder: Normal distended gallbladder. The gallbladder wall measures 1.2 mm. There is a negative sonographic Olivier''s sign. There is no pericholecystic fluid. There are multiple echogenic structures within the gallbladder, consistent with multiple gallstones. Common Bile Duct (C.B.D.): The common bile duct measures 4 mm. Pancreas: Normal size of the head, body and tail of the pancreas. There is normal echogenicity of the pancreas. There is no demonstrated pancreatic mass or cyst. Spleen: The visualized spleen is unremarkable. Right Kidney: Normal size of the right kidney. The right kidney measures 10.3 x 4.9 x 4.4 cm. Normal renal cortex. The right cortex measures 1.4 cm. Within the upper pole of the right kidney there is a round anechoic structure consistent with a cyst measuring 1.3 x 1.4 x 1.2 cm. There is no right hydronephrosis. Left Kidney: Normal size of the left kidney. The left kidney measures 9.6 x 4.4 x 3.9 cm. Normal renal cortex. The left cortex measures 0.9 cm. Within the upper pole of the left hand there is a round anechoic structure measuring 2.2 x 2.2 x 2.0 cm consistent with a simple cyst. There is no left hydronephrosis. Aorta: Proximal aorta measures 2.1 cm, mid aorta 1.5 cm and distal aorta 1.3 cm. I.V.C.: The IVC is patent. There is no ascites. US/Abdomen Complete IMPRESSION: Multiple gallstones with no signs of acute cholecystitis. Bilateral renal cysts as described, remainder of the abdominal ultrasound unremarkable. Electronically Signed: Heather Spivey MD at 2:07 EDT , Service support ,
== END ==
PROVIDERS: PCP Internal Medicine; Referring Provider Surgery; Visit Provider Surgery
DX: K86.3 Pseudocyst of pancreas (principal); K80.20 Calculus of gallbladder without cholecystitis without obstruction
CPT/HCPCS: 76700

== ENCOUNTER 2021-04-21 19:55 | Emergency (ER) | payer MEDICARE, MEDICAID, SELFPAY ==
[2021-03-21 13:43] VITALS: BMI 29.2
[2021-04-21 19:59] VITALS: BP 200/100; PULSE 92; RESP 14; TEMP 36.8; O2SAT 97; BMI 29.9
--- NOTE | 2021-04-21 21:40 | ED.VIS.LOWEX ---
HPI History of Present Illness Chief Complaint: Lower Extremity Injury Informant: patient and family Occured/Mechanism Mechanism/Context: Yes blunt trauma and Yes fall Onset/Context/Timing Onset: Yesterday Context: Sudden Onset Timing: Continuous Quality of Pain: Dull and Aching Location: Left foot Current Severity: Mild Maximum Severity: Moderate Worsened by: Weightbearing and movement Relieved by: Rest improves the discomfort Associated Symptoms Associated Symptoms: Negative for Parasthesia, Weakness and Loss of Funtion Narrative Narrative: Patient is a six 6-year-old woman who was standing on the rim of the bathtub. She lost her balance. She grabbed the shower. She fell. She landed on her left side. She has had pain involving the left foot since fall. She is status post splenic injury with placement of coils. She denies left upper quadrant pain or left-sided chest pain. She denies head trauma. She denies shortness of breath. She denies hematuria. She denies paresthesia, anesthesia or motor weakness. Tetanus Immunization: 5-10 years Prior similar symptoms: No Recent Illness/Hospitalization: No PFSH PFSH Medical History Alcohol abuse Anxiety Asthma Closed fracture of fifth metatarsal bone of left foot COPD (chronic obstructive pulmonary disease) GERD (gastroesophageal reflux disease) H/O spleen injury HLD (hyperlipidemia) Hyperlipemia Hypertension Injury, spleen, with capsular tears Osteoarthritis Pseudocyst of pancreas Smoker Home Medications lisinopril 40 mg PO QHS 07/26/15 [History Last Taken 12/29/19 21:00] tramadol 50 mg PO TID 07/26/15 [History Last Taken 12/30/19 15:00] atorvastatin 20 mg PO QHS 05/28/19 [History Last Taken 12/29/19 21:00] carvedilol 25 mg PO BID 05/28/19 [History Last Taken 12/30/19 12:00] spironolactone 25 mg PO QHS 05/28/19 [History Last Taken 12/29/19 21:00] levalbuterol HCl 1 inh INHALATION Q6H PRN PRN 12/30/19 [History Last Taken Unknown] alprazolam 0.5 mg PO TID PRN PRN 02/12/21 [History Last Taken Unknown] gabapentin 600 mg PO QHS 02/12/21 [History Last Taken Unknown] pantoprazole 40 mg PO DAILY 02/12/21 [History Last Taken Unknown] psyllium 1 packet PO DAILY 02/12/21 [History Last Taken Unknown] albuterol sulfate 2 puff INHALATION Q4H PRN 02/13/21 [History Last Taken Unknown] diphenhydramine-acetaminophen [Tylenol PM Extra Strength] 1,000 tab PO QHS PRN PRN 02/13/21 [History Last Taken Unknown] guaifenesin 600 mg tablet, extended release 12 hr 600 mg PO BID tab 03/21/21 [History Last Taken Unknown] levalbuterol tartrate 45 mcg/actuation aerosol inhaler 2 puff INHALATION Q4H PRN g 03/21/21 [History Last Taken Unknown] hydrocodone-acetaminophen 1 tab PO Q6H PRN PRN 3 Days #10 tablet 04/21/21 [Rx Last Taken Unknown] Allergy/AdvReac Type Severity Reaction Status Date / Time amlodipine Allergy Unknown Verified 04/21/21 19:59 clonidine Allergy Unknown Verified 04/21/21 19:59 adhesive AdvReac Rash Verified 04/21/21 19:59 albuterol AdvReac NEEDS Verified 04/21/21 19:59 FOLLOW-UP codeine AdvReac Nausea Verified 04/21/21 19:59 Family History Mother Heart disease Hypertension Surgical History H/O colostomy H/O: History of hernia repair Social History Smoking Status: Current every day smoker tobacco type: cigarettes alcohol intake: former substance use type: does not use caffeine: Yes what type of physical activity do you participate in: bicycling frequency: 1-2 times per week ROS ROS ED Constitutional Constitutional ED: Denies chills, fever(s), subjective or sweats Eyes Eyes: Denies blurry vision or change in vision ENT ENT ED: Denies ear pain, rhinorrhea or sore throat Cardiovascular Cardiovascular: Denies chest pain, orthopnea or palpitations Respiratory/Chest Respiratory/Chest: Denies dyspnea, dyspnea on exertion or orthopnea Gastrointestinal Gastrointestinal: Denies abdominal pain, diarrhea, nausea or vomiting Genitourinary Genitourinary ED: Denies dysuria, hematuria or urinary frequency Musculoskeletal Musculoskeletal: Denies arthralgias, back pain, myalgias or neck pain Neurologic Neurologic: Denies paresthesias or weakness Hematologic/Lymphatic Hematologic/Lymphatic: Denies easy bleeding or easy bruising EXAM Physical Exam Const Vital Signs: 04/21/21 19:59 Temperature 98.2 F Temperature Source Temporal Pulse Rate 92 Respiratory Rate 14 Blood Pressure 200/100 H Blood Pressure Mean 133 Pulse Ox 97 Oxygen Delivery Method Room Air Positive well nourished, well developed and obese General Appearance ED: well developed and NAD Nutritional Appearance: obese HEENT normocephalic and atraumatic Eyes PERRL General Eye ED: Yes other Other Details: Struck muscle intact. There is no subconjunctival hemorrhage. Neck full ROM and supple Chest Wall inspection of chest normal and palpation of chest normal Resp normal respiratory effort, no retractions and clear to auscultation bilaterally Cardio regular rate, regular rhythm, S1 normal heart sound, S2 normal heart sound and no murmurs GI non-distended and no masses GI Narrative: Specifically no tenderness in the left upper quadrant and the spleen is not enlarged to palpation. Auscultation: normoactive bowel sounds Palpation: soft Back/Spine no CVA tenderness Thoracic Spine / Upper Back: Negative for thoracic spinal tenderness Lumbar Spine / Lower Back: Negative for lumbar spinal tenderness Extremity Negative for normal to inspection or full ROM Extremity Narrative: There is swelling with ecchymosis noted over the second, third and fourth metatarsal. There is pain ovation of the base of the fifth meta tarsal. There is also pedal patient over the anterior talofibular ligament and the tip of the fibula. There is no pain palpation post anterior aspect of the medial or lateral malleolus. PT pulses palpable. DP is limited because of swelling and pain. General Extremety ED: Yes edema and weight-bearing difficulty; Negative for cyanosis General Extremity: edema and weight-bearing difficulty; Negative for cyanosis Neuro oriented x3, CN's II-XII intact bilaterally and no sensory deficits noted Sensorium / Orientation: alert Motor Exam: strength 5/5 throughout Psych mental status grossly normal Skin no wounds Lesions: no lesions Rashes: no rashes MDM MDM MDM Narrative Medical decision making narrative: Patient was medicated with [place] and x-ray of the foot was obtained to evaluate contusion versus fracture. Radiography Diagnostic Testing: Three-view x-ray of the left foot was performed and interpreted by me as positive for a fracture involving the shaft of the fifth metatarsal. Is nondisplaced and nonangulated. It is best seen on the oblique film. Patient was treated with postop shoe and crutches. She also was treated with opiate analgesia. Discharge Plan Triage Chief Complaint: Lower Extremity Injury ED Provider: Jayy Michael Dx/Rx/DC Orders Clinical Impression: Closed fracture of fifth metatarsal bone of left foot Instructions: ED Fracture, Foot Prescriptions: New hydrocodone-acetaminophen [hydrocodone-acetaminophen] 1 TABLET tablet 1 tab PO Q6H PRN PRN (Reason: Pain) 3 Days Qty: 10 RF: 0 No Action levalbuterol tartrate 45 mcg/actuation HFA aerosol inhaler 2 puff inhalation Q4H PRN (Reason: Wheezing) RF: 0 guaifenesin 600 mg tablet extended release 12hr 600 mg PO BID RF: 0 tramadol 50 MG tablet 50 mg PO TID RF: 0 lisinopril 40 MG tablet 40 mg PO QHS RF: 0 carvedilol 25 MG tablet 25 mg PO BID RF: 0 atorvastatin 20 MG tablet 20 mg PO QHS RF: 0 spironolactone 25 MG tablet 25 mg PO QHS RF: 0 levalbuterol HCl 1.25 mg/3 mL solution for nebulization 1 inh inhalation Q6H PRN PRN (Reason: Sob &/Or Wheezing) RF: 0 alprazolam 0.5 mg tablet 0.5 mg PO TID PRN PRN (Reason: Anxiety) RF: 0 gabapentin 300 mg capsule 600 mg PO QHS RF: 0 psyllium Packet 1 packet PO DAILY RF: 0 pantoprazole 40 mg Tablet,Delayed Release (Dr/Ec) 40 mg PO DAILY RF: 0 albuterol sulfate 90 mcg/actuation Hfa Aerosol Inhaler 2 puff INHALATION Q4H PRN (Reason: breathing) RF: 0 diphenhydramine-acetaminophen [Tylenol PM Extra Strength] 25-500 mg Tablet 1,000 tab PO QHS PRN PRN (Reason: Sleep) RF: 0 Primary Care Provider: Nate Gray Referrals: Denys Skelton MD [STAFF PHYSICIAN] - 5-7 Days Nate Gray MD [Primary Care Provider] - Disposition Disposition: Home, Self Care
--- NOTE | 2021-04-21 21:48 | RAD_ITS ---
STUDY: X-RAY - LEFT FOOT CLINICAL: Female, 66 years old. Injury/Pain TECHNIQUE: 3 view(s) of the foot. COMPARISON: None. FINDINGS: Nondisplaced fractures are seen of the distal shaft of the fifth metatarsal. No other acute abnormalities. Normal talus, calcaneus, and tarsal bones. Normal visualized subtalar, talonavicular, calcaneocuboid, tarsal and tarsometatarsal articulations. Normal first-fourth metatarsi. Normal metatarsophalangeal joint of the great toe. Normal tibial and fibular sesamoid bones. Normal interphalangeal joint of the great toe. Normal phalanges of the great toe. Normal second through fifth metatarsophalangeal joints. Normal interphalangeal joints and phalanges of the lesser toes. The soft tissue structures are unremarkable. RAD/Foot min 3 Views IMPRESSION: Nondisplaced fractures are seen of the distal shaft of the fifth metatarsal. Electronically Signed: Pratik Mulligan MD at 22:30 EDT , Service support ,
[2021-04-21] MEDS: HYDROcodone Bitartrate/Apap 5/325 Tablet PO (22:27)
== END 2021-04-21 22:30 | disposition home or self-care (01) ==
PROVIDERS: Emergency Provider Emergency Medicine; PCP Internal Medicine
DX: S92.352A Displaced fracture of fifth metatarsal bone, left foot, initial encounter for closed fracture (principal); E66.9 Obesity, unspecified; F17.210 Nicotine dependence, cigarettes, uncomplicated; J44.9 Chronic obstructive pulmonary disease, unspecified; I10 Essential (primary) hypertension; E78.5 Hyperlipidemia, unspecified; K21.9 Gastro-esophageal reflux disease without esophagitis; Z79.899 Other long term (current) drug therapy; W19.XXXA Unspecified fall, initial encounter
CPT/HCPCS: 73630; 99284

== ENCOUNTER 2021-11-11 16:14 | Emergency (ER) | payer MEDICARE, MEDICAID, SELFPAY ==
[2021-11-11 16:15] VITALS: BP 189/112; PULSE 93; RESP 15; TEMP 36.1; O2SAT 97; BMI 30.4
[2021-11-11 16:17] VITALS: BP 189/112; PULSE 93; RESP 15; TEMP 36.1; O2SAT 97
[2021-11-11 16:31] VITALS: O2SAT 96
--- NOTE | 2021-11-11 16:35 | ED.VIS.DYS ---
HPI History of Present Illness Chief Complaint: Cold Sx Informant: patient Onset/Context/Timing Onset: Month(s) (Has been ill since beginning of October) Context: gradual Timing: Continuous and Waxes and wanes Quality: Positive for Dyspnea on exertion and Wheezing; Negative for Orthopnea and PND Current Severity: Mild Maximum Severity: Severe Worsened by: Exertion, Coughing and - (Patient smokes 17 cigarettes/day, which she rolls herself) Relieved by: Nothing Associated Symptoms cough, rhinorrhea, chills and green sputum; Negative for post nasal drip, ear pain, fever, sore throat, subjective or sweats Chest Pain: Positive for None Narrative Narrative: Patient is a 66-year-old woman who has history of COPD. She is on no long-term therapy. She has not smoked for the last 2 days. She denies fever or shaking chills. She reports tremors. She reports chronic nasal congestion. She denies history of PE or DVT. She denies leg pain, swelling discoloration. She has been seen several times at the urgent care and has had 3 - Covid test. She completed a tapering dose of prednisone. She states when she is on the prednisone she felt much better. She has not been on antibiotics. She states she is coughing up thick green sputum which is worse in the morning. She does report nausea without vomiting or diarrhea. She denies dysuria, frequency, urgency or hematuria. She denies chest pain, orthopnea or PND. She denies black or maroon-colored stool. PE Risk Factors: Negative for Cancer, OCP + Smoking + > 35, Prior DVT or PE, Recent immobilization, Recent surgery and Recent travel Prior similar symptoms: Yes (Exacerbation of COPD) Recent Illness/Hospitalization: No PFSH PFSH Medical History Alcohol abuse Anxiety Asthma Closed fracture of fifth metatarsal bone of left foot COPD (chronic obstructive pulmonary disease) GERD (gastroesophageal reflux disease) H/O spleen injury HLD (hyperlipidemia) Hyperlipemia Hypertension Injury, spleen, with capsular tears Osteoarthritis Pseudocyst of pancreas Smoker Home Medications lisinopril 40 mg PO QHS 07/26/15 [History Last Taken 12/29/19 21:00] tramadol 50 mg PO TID 07/26/15 [History Last Taken 12/30/19 15:00] atorvastatin 20 mg PO QHS 05/28/19 [History Last Taken 12/29/19 21:00] carvedilol 25 mg PO BID 05/28/19 [History Last Taken 12/30/19 12:00] spironolactone 25 mg PO QHS 05/28/19 [History Last Taken 12/29/19 21:00] levalbuterol HCl 1 inh INHALATION Q6H PRN PRN 12/30/19 [History Last Taken Unknown] alprazolam 0.5 mg PO TID PRN PRN 02/12/21 [History Last Taken Unknown] gabapentin 600 mg PO QHS 02/12/21 [History Last Taken Unknown] pantoprazole 40 mg PO DAILY 02/12/21 [History Last Taken Unknown] psyllium 1 packet PO DAILY 02/12/21 [History Last Taken Unknown] albuterol sulfate 2 puff INHALATION Q4H PRN 02/13/21 [History Last Taken Unknown] diphenhydramine-acetaminophen [Tylenol PM Extra Strength] 1,000 tab PO QHS PRN PRN 02/13/21 [History Last Taken Unknown] guaifenesin 600 mg tablet, extended release 12 hr 600 mg PO BID tab 03/21/21 [History Last Taken Unknown] levalbuterol tartrate 45 mcg/actuation aerosol inhaler 2 puff INHALATION Q4H PRN g 03/21/21 [History Last Taken Unknown] hydrocodone-acetaminophen 1 tab PO Q6H PRN PRN 3 Days #10 tablet 04/21/21 [Rx Last Taken Unknown] doxycycline monohydrate 100 mg PO BID #14 capsule 11/11/21 [Rx Last Taken Unknown] fluticasone propion-salmeterol [Advair Diskus] 1 inh INHALATION BID #60 ea 11/11/21 [Rx Last Taken Unknown] inhalational spacing device [Aerochamber MV] #1 ea 11/11/21 [Rx Last Taken Unknown] prednisone 10 mg PO UD #33 tab 11/11/21 [Rx Last Taken Unknown] Allergy/AdvReac Type Severity Reaction Status Date / Time amlodipine Allergy Unknown Verified 04/21/21 19:59 clonidine Allergy Unknown Verified 04/21/21 19:59 adhesive AdvReac Rash Verified 04/21/21 19:59 albuterol AdvReac NEEDS Verified 04/21/21 19:59 FOLLOW-UP codeine AdvReac Nausea Verified 04/21/21 19:59 Family History Mother Heart disease Hypertension Surgical History H/O colostomy H/O: History of hernia repair Social History (Updated 11/11/21 @ 16:[address] Jayy Michael MD) household members: spouse housing: house Smoking Status: Current every day smoker tobacco type: cigarettes alcohol intake: former substance use type: does not use caffeine: Yes what type of physical activity do you participate in: bicycling frequency: 1-2 times per week ROS ROS ED Constitutional Constitutional ED: Denies chills, fever(s), sweats or weight loss Eyes Eyes: Denies blurry vision, change in vision or diplopia ENT ENT ED: Reports rhinorrhea; Denies ear pain or sore throat Cardiovascular Cardiovascular: Denies chest pain, orthopnea, palpitations, paroxysmal nocturnal dyspnea or racing heartbeat Respiratory/Chest Respiratory/Chest: Reports cough, dyspnea, dyspnea on exertion and sputum; Denies orthopnea or paroxysmal nocturnal dyspnea Gastrointestinal Gastrointestinal: Reports nausea; Denies abdominal pain, constipation, diarrhea, melena or vomiting Genitourinary Genitourinary ED: Reports urinary frequency; Denies dysuria or hematuria Musculoskeletal Musculoskeletal: Denies arthralgias, back pain, myalgias or neck pain Integumentary Denies Abrasions or rash Neurologic Neurologic: Reports weakness; Denies headache(s) or paresthesias Endocrine Endocrinology: Denies heat intolerance, polydipsia, polyphagia or polyuria Hematologic/Lymphatic Hematologic/Lymphatic: Denies easy bleeding or easy bruising EXAM Physical Exam Const Vital Signs: 11/11/21 16:15 11/11/21 16:17 11/11/21 16:31 Temperature 97 F L 97 F L Temperature Source Oral Oral Pulse Rate 93 93 Respiratory Rate 15 15 Respiratory Effort Short of Breath Respiratory Depth Shallow Respiratory Pattern Normal Blood Pressure 189/112 H 189/112 H Blood Pressure Mean 137 137 Pulse Ox 97 97 Oxygen Delivery Method Room Air Room Air Room Air 11/11/21 16:44 11/11/21 16:50 Temperature Temperature Source Pulse Rate 89 94 Respiratory Rate 21 H 26 H Respiratory Effort Respiratory Depth Respiratory Pattern Tachypnea Tachypnea Blood Pressure Blood Pressure Mean Pulse Ox Oxygen Delivery Method Positive well nourished, well developed and obese General Appearance ED: well developed and NAD; Negative for pallor Nutritional Appearance: obese HEENT Reports TM's clear and moist mucous membranes HEENT Narrative: Nasal mucosa is pale. There is clear drainage noted. There is no tenderness over the frontal, ethmoid or maxillary sinuses. Posterior pharynx out erythema or exudate. Uvula midline. atraumatic Tympanic Membrane ED: Yes TM's clear Eyes PERRL and EOMs intact bilaterally General Eye ED: Negative for pale conjunctiva or scleral icterus Neck no lymphadenopathy, supple, no meningeal signs and no JVD Resp No normal respiratory effort and No clear to auscultation bilaterally Effort and Inspection: Negative for pain with movement Auscultation: wheezes expiratory wheezes and throughout and diminished lung sounds Cardio regular rate, regular rhythm, S1 normal heart sound, S2 normal heart sound and no murmurs GI non-tender, non-distended and no masses Auscultation: normoactive bowel sounds Palpation: soft Back/Spine no CVA tenderness and normal to inspection Extremity normal to inspection Extremity Narrative: There is no asymmetry, swelling, discoloration, leg vein distention, palpable cords or tenderness along the distribution of the deep venous system. General Extremety ED: Negative for edema or tenderness General Extremity: Negative for edema Neuro oriented x3 and CN's II-XII intact bilaterally [place] Coma Scale: document GCS findings Spontaneous Obeys Commands Oriented 15 Sensorium / Orientation: alert Psych Thought Process: normal thought process Skin no wounds and No skin turgor normal General Skin Exam: Negative for jaundice or pallor Lesions: no lesions Rashes: no rashes MDM MDM MDM Narrative Medical decision making narrative: Patient has exacerbation of COPD. Will obtain chest x-ray to rule out pneumonia and appropriate blood work to assess for anemia, white count, renal function and glucose level. Patient was treated with DuoNeb, albuterol and prednisone. Plan is doxycycline, tapering dose of prednisone spacer and Advair. Patient's been instructed she needs to stop smoking because it is in her best interest. Lab Data Attestation: I reviewed the patient's lab results. Labs: Laboratory Results - last 24 hr 11/11/21 11/11/21 16:45 16:45 WBC 13.2 H RBC 4.06 L Hgb 13.7 Hct 39.6 MCV 97.5 MCH 33.7 H MCHC 34.6 RDW Std Deviation 49.3 H RDW Coeff of Renea 13.8 Plt Count 295 MPV 9.5 Immature Gran % (Auto) 0.800 Neut % (Auto) 64.8 Lymph % (Auto) 23.8 [place] % (Auto) 9.0 Eos % (Auto) 1.4 Baso % (Auto) 0.2 Absolute Neuts (auto) 8.6 H Absolute Lymphs (auto) 3.15 Nucleated RBC % 0 Sodium 131 L Potassium 4.8 Chloride 94 L Carbon Dioxide 30.0 Anion Gap 7 BUN 22 H Creatinine 1.04 H Estim Creat Clear Calc 57.53 Est GFR (MDRD) Af Amer 68 Est GFR (MDRD) Non-Af 56 L BUN/Creatinine Ratio 21.2 H Glucose 87 Calcium 8.8 White count is elevated with no shift. Basic metabolic panel reveals mild hyponatremia compared to prior labs and slight elevation of creatinine to 1.04 with a GFR of 57.5. Radiography Chest X-Ray - ED: 2 View and Read by ED Physician (2 view chest x-ray reveals chronic changes. There is no infiltrate, pneumothorax or effusion. Cardiac silhouette size normal. Perihilar regions unremarkable. Osseous structures are unremarkable.) Rhythm Strip Rhythm Strip: Sinus Rhythm Rate: 92 Ectopy: None Discharge Plan Triage Chief Complaint: Cold Sx ED Provider: Jayy Michael Dx/Rx/DC Orders Clinical Impression: Acute exacerbation of chronic obstructive bronchitis, Acute purulent bronchitis, Bronchospasm Instructions: ED COPD Flare Prescriptions: New prednisone 10 MG tablet 10 mg PO UD Qty: 33 RF: 0 doxycycline monohydrate 100 MG capsule 100 mg PO BID Qty: 14 RF: 0 fluticasone propion-salmeterol [Advair Diskus] 250-50 mcg/dose blister with device 1 inh inhalation BID Qty: 60 RF: 0 (DME) Aerochamber MV Spacer See Rx Instructions .ROUTE .MEDSUPPLY Qty: 1 RF: 0 No Action levalbuterol tartrate 45 mcg/actuation HFA aerosol inhaler 2 puff inhalation Q4H PRN (Reason: Wheezing) RF: 0 guaifenesin 600 mg tablet extended release 12hr 600 mg PO BID RF: 0 tramadol 50 MG tablet 50 mg PO TID RF: 0 lisinopril 40 MG tablet 40 mg PO QHS RF: 0 carvedilol 25 MG tablet 25 mg PO BID RF: 0 atorvastatin 20 MG tablet 20 mg PO QHS RF: 0 spironolactone 25 MG tablet 25 mg PO QHS RF: 0 levalbuterol HCl 1.25 mg/3 mL solution for nebulization 1 inh inhalation Q6H PRN PRN (Reason: Sob &/Or Wheezing) RF: 0 alprazolam 0.5 mg tablet 0.5 mg PO TID PRN PRN (Reason: Anxiety) RF: 0 gabapentin 300 mg capsule 600 mg PO QHS RF: 0 psyllium Packet 1 packet PO DAILY RF: 0 pantoprazole 40 mg Tablet,Delayed Release (Dr/Ec) 40 mg PO DAILY RF: 0 albuterol sulfate 90 mcg/actuation Hfa Aerosol Inhaler 2 puff INHALATION Q4H PRN (Reason: breathing) RF: 0 diphenhydramine-acetaminophen [Tylenol PM Extra Strength] 25-500 mg Tablet 1,000 tab PO QHS PRN PRN (Reason: Sleep) RF: 0 hydrocodone-acetaminophen [hydrocodone-acetaminophen] 1 TABLET tablet 1 tab PO Q6H PRN PRN (Reason: Pain) 3 Days Qty: 10 RF: 0 Primary Care Provider: Nate Gray Referrals: Nate Gray MD [Primary Care Provider] - 3-5 Days if not improving Activity Restrictions/Additional Instructions: It is in your best interest to stop smoking. Disposition Disposition: Home, Self Care
[2021-11-11] MEDS: Ipratropium/Albuterol Sulfate 3 ML AMPUL.NEB INHALATION (16:43)
[2021-11-11 16:44] VITALS: PULSE 89; RESP 21
[2021-11-11] MEDS: Albuterol 2.5 MG/3 ML VIAL.NEB. INHALATION ×3 (16:48)
[2021-11-11 16:50] VITALS: PULSE 94; RESP 26
[2021-11-11 16:52] LABS: Absolute Lymphocyte Count 3.15 X10^3/uL (0.83-4.51); Absolute Neutrophil Count 8.6 X10^3/uL (2.0-7.7); Basophil# 0.02 X10^3/uL; Basophil% 0.2 % (0-1); Eosinophil# 0.19 X10^3/uL; Eosinophils% 1.4 % (0-5); Hematocrit 39.6 % (37-47); Hemoglobin 13.7 g/dL (12.0-15.0); Lymphocyte # 3.15 X10^3/ul (0.83-4.51); Lymphocyte % 23.8 % (19-41); Mean Corp Hgb Conc 34.6 g/dL (32-36); Mean Corpuscular Hgb 33.7 pg (27.0-32.0); Mean Corpuscular Volume 97.5 fL (81-99); Mean Platelet Vol. 9.5 fl (6.2-12.0); Monocyte# 1.19 X10^3/uL; NRBC Flagged by Analyzer 0 % (0-5); Neutrophil # 8.56 X10^3/uL (2.7-7.7); Neutrophil % 64.8 % (47-70); Platelet Count 295 K/mm3 (150-450); RBC Distribution Width CV 13.8 % (11.6-14.6); RBC Distribution Width SD 49.3 fl (35.1-43.9); Red Blood Count 4.06 M/mm3 (4.2-5.4); White Blood Count 13.2 K/mm3 (4.4-11.0)
[2021-11-11] MEDS: predniSONE 20 MG Tablet 60 MG PO (17:05)
--- NOTE | 2021-11-11 17:20 | RAD_ITS ---
STUDY: X-RAY CHEST REASON FOR EXAM: Female, 66 years old. Productive cough x1 month, 3 - Covid test TECHNIQUE: PA and lateral views of the chest. COMPARISON: 02/13/2021 FINDINGS: EKG leads overlie the chest The lungs are clear and expanded. There is no demonstrated pleural abnormality. Normal size heart. Normal mediastinum and trisha. Normal visualized pulmonary arteries. There is atherosclerotic calcification of the aortic arch with tortuosity. There are diffuse degenerative changes of the visualized thoracic spine. Old healed left rib fractures There is no demonstrated abnormality of the visualized soft tissue structures of the upper abdomen. RAD/Chest PA and Lateral IMPRESSION: No acute pulmonary process Electronically Signed: Joseluis Clark MD at 17:34 EST ,
[2021-11-11 17:21] LABS: Anion Gap 7 (5-15); BUN 22 mg/dL (7-18); BUN/Creat Ratio 21.2 RATIO (10-20); Calcium,Total 8.8 mg/dL (8.5-10.1); Chloride 94 mmol/L (98-107); Creatinine, Serum 1.04 mg/dL (0.55-1.02); EST Glomerular Filtration Rate 56 mL/min (>60); Est Glom Filt Rate - Afr Amer 68 mL/min (>60); Estimated Creatinine Clearance 57.53 ml/min; Glucose 87 mg/dL (74-106); Potassium 4.8 mmol/L (3.5-5.1); Sodium Level 131 mmol/L (136-145)
[2021-11-11 17:55] VITALS: BP 164/78; PULSE 88; RESP 16; TEMP 36.9; O2SAT 97
[2021-11-11] MEDS: Doxycycline 100 MG CAPSULE PO (17:59)
== END 2021-11-11 18:08 | disposition home or self-care (01) ==
PROVIDERS: Emergency Provider Emergency Medicine; PCP Internal Medicine; Visit Provider Emergency Medicine
DX: J44.0 Chronic obstructive pulmonary disease with (acute) lower respiratory infection (principal); J20.9 Acute bronchitis, unspecified; F17.210 Nicotine dependence, cigarettes, uncomplicated; E66.9 Obesity, unspecified
CPT/HCPCS: 71046; 80048; 85025; 94640; 99285; A4216

== ENCOUNTER 2021-11-24 17:08 | Emergency (ER) | payer MEDICARE, SELFPAY ==
[2021-11-24 17:09] VITALS: BP 156/94; PULSE 92; RESP 27; TEMP 35.9; O2SAT 93; BMI 32.0
--- NOTE | 2021-11-24 17:27 | EKG12_ITS ---
Test Reason : CP Blood Pressure : / mmHG Vent. Rate : 083 BPM Atrial Rate : 083 BPM P-R Int : 162 ms QRS Dur : 080 ms QT Int : 350 ms P-R-T Axes : 058 084 032 degrees QTc Int : 411 ms Normal sinus rhythm Normal ECG Confirmed by HUGO KULKARNI, AMIRA ([id number]), newspaper editor DRISS GOMEZ ([id number]) on 11/28/2021 1:20:24 PM Referred By: Confirmed By:RAGHAV ARIAS MD
--- NOTE | 2021-11-24 17:30 | RAD_ITS ---
STUDY: X-RAY CHEST REASON FOR EXAM: Female, 66 years old. Chest pain TECHNIQUE: Single frontal view of the chest. COMPARISON: 11/11/2021. FINDINGS: The lungs are clear and expanded. There is no demonstrated pleural abnormality. Normal size heart. Normal mediastinum and trisha. Normal visualized pulmonary arteries. There is atherosclerotic calcification of the aortic arch with tortuosity. Normal visualized thoracic spine. Normal visualized ribs, clavicles, and shoulders. There is no demonstrated abnormality of the visualized soft tissue structures of the upper abdomen. RAD/Chest 1 View (Portable) IMPRESSION: Normal x-ray examination of the chest. Electronically Signed: Timo Gregorio MD at 17:50 EST ,
--- NOTE | 2021-11-24 17:31 | ED.VIS.CHEST ---
HPI <MARY Snow - Last Filed: 11/24/21 20:51> History of Present Illness Chief Complaint: Chest Pain Narrative Narrative: 66 year old female with PMH of HTN, HLD, COPD, GERD, anxiety presents with back pain. A few hours ago she was standing at the kitchen sink doing dishes when she developed pain in the middle of her back. It radiated to both arms. She denies chest pain or shortness of breath. She did feel nauseous but had no vomiting or diaphoresis. The pain is constant and is not exertional or pleuritic. She states she has had similar pain before when vacuuming or doing a lot of activity and it is worse with standing. She took some migraine medication she had at home without improvement. She googled the symptoms and was concerning she may be having a heart attack so came to the ED. She has no history of cardiac problems. She smokes but recently cut down from 17 to 10 cigarettes daily. She was treated for COPD in the last 2 weeks and states her cough has improved. She denies history of DVT/PE or lower extremity pain or swelling. PFSH <MARY Snow - Last Filed: 11/24/21 20:51> PFSH Medical History Alcohol abuse Anxiety Asthma Closed fracture of fifth metatarsal bone of left foot COPD (chronic obstructive pulmonary disease) GERD (gastroesophageal reflux disease) H/O spleen injury HLD (hyperlipidemia) Hyperlipemia Hypertension Injury, spleen, with capsular tears Osteoarthritis Pseudocyst of pancreas Smoker Home Medications lisinopril 40 mg PO QHS 07/26/15 [History Last Taken 12/29/19 21:00] tramadol 50 mg PO TID 07/26/15 [History Last Taken 12/30/19 15:00] atorvastatin 20 mg PO QHS 05/28/19 [History Last Taken 12/29/19 21:00] carvedilol 25 mg PO BID 05/28/19 [History Last Taken 12/30/19 12:00] spironolactone 25 mg PO QHS 05/28/19 [History Last Taken 12/29/19 21:00] levalbuterol HCl 1 inh INHALATION Q6H PRN PRN 12/30/19 [History Last Taken Unknown] alprazolam 0.5 mg PO TID PRN PRN 02/12/21 [History Last Taken Unknown] gabapentin 600 mg PO QHS 02/12/21 [History Last Taken Unknown] pantoprazole 40 mg PO DAILY 02/12/21 [History Last Taken Unknown] psyllium 1 packet PO DAILY 02/12/21 [History Last Taken Unknown] albuterol sulfate 2 puff INHALATION Q4H PRN 02/13/21 [History Last Taken Unknown] diphenhydramine-acetaminophen [Tylenol PM Extra Strength] 1,000 tab PO QHS PRN PRN 02/13/21 [History Last Taken Unknown] guaifenesin 600 mg tablet, extended release 12 hr 600 mg PO BID tab 03/21/21 [History Last Taken Unknown] levalbuterol tartrate 45 mcg/actuation aerosol inhaler 2 puff INHALATION Q4H PRN g 03/21/21 [History Last Taken Unknown] hydrocodone-acetaminophen 1 tab PO Q6H PRN PRN 3 Days #10 tablet 04/21/21 [Rx Last Taken Unknown] doxycycline monohydrate 100 mg PO BID #14 capsule 11/11/21 [Rx Last Taken Unknown] fluticasone propion-salmeterol [Advair Diskus] 1 inh INHALATION BID #60 ea 11/11/21 [Rx Last Taken Unknown] inhalational spacing device [Aerochamber MV] #1 ea 11/11/21 [Rx Last Taken Unknown] prednisone 10 mg PO UD #33 tab 11/11/21 [Rx Last Taken Unknown] lidocaine 1 patch TOPICAL DAILY #1 ea 11/24/21 [Rx Last Taken Unknown] Allergy/AdvReac Type Severity Reaction Status Date / Time amlodipine Allergy Unknown Verified 11/24/21 17:12 clonidine Allergy Unknown Verified 11/24/21 17:12 adhesive AdvReac Rash Verified 11/24/21 17:12 codeine AdvReac Nausea Verified 11/24/21 17:12 Family History Mother Heart disease Hypertension Surgical History H/O colostomy H/O: History of hernia repair Social History (Updated 11/11/21 @ 16:[address] Jayy Michael MD) household members: spouse housing: house Smoking Status: Current every day smoker tobacco type: cigarettes alcohol intake: former substance use type: does not use caffeine: Yes what type of physical activity do you participate in: bicycling frequency: 1-2 times per week ROS <MARY Snow - Last Filed: 11/24/21 20:51> ROS ED ROS Narrative Constitutional: Negative for fever, chills, malaise. Eyes: Negative for visual change. ENT: Negative for sore throat, ear pain, rhinorrhea. CVS: Negative for palpitations, chest pain, syncope. Respiratory: Negative for shortness of breath, cough, orthopnea. GI: Positive for nausea. Negative for abdominal pain, vomiting, diarrhea, constipation, melena, hematochezia. : Negative for dysuria, hematuria or frequency. Neuro: Negative for headache, motor/sensory dysfunction. Skin: Negative for rash, abscess, or wound. Musc: Positive for back pain. Negative for joint pain, swelling, trauma. Heme: Negative for easy bruising, bleeding, lymphadenopathy. EXAM <MARY Snow - Last Filed: 11/24/21 20:51> Physical Exam Narrative Exam Narrative: CONST: Patient anxious and nontoxic appearing. EYES: Normal inspection. ENT: Normal inspection, moist mucous membranes. NECK: Normal inspection. RESP: No respiratory distress, CTAB. CVS: Regular rate and rhythm, no murmur, no gallop. ABD: Soft and nontender, no guarding or rebound, nondistended, no hepatosplenomegaly. Back: Normal inspection, no midline spinal tenderness with no step-offs, no CVA tenderness. Tender over bilateral thoracic paraspinal muscles. SKIN: Color normal, no rash, warm, dry, intact. EXTREMITIES: Normal appearance, no pedal edema. No calf tenderness. 2+ radial and DP pulses. NEURO: Oriented x4. PSYCH: Normal affect. Const Vital Signs: 11/24/21 17:09 11/24/21 17:16 11/24/21 17:32 Temperature 96.6 F L Temperature Source Temporal Pulse Rate 92 Respiratory Rate 27 H Respiratory Effort Normal Blood Pressure 156/94 H Blood Pressure Mean 114 Pulse Ox 93 Oxygen Delivery Method Room Air Room Air 11/24/21 20:43 Temperature Temperature Source Pulse Rate 83 Respiratory Rate 20 H Respiratory Effort Blood Pressure 129/96 H Blood Pressure Mean 107 Pulse Ox 95 Oxygen Delivery Method Room Air <Mack Lopez MD - Last Filed: 11/24/21 21:24> Physical Exam Const Vital Signs: 11/24/21 17:09 11/24/21 17:16 11/24/21 17:32 Temperature 96.6 F L Temperature Source Temporal Pulse Rate 92 Respiratory Rate 27 H Respiratory Effort Normal Blood Pressure 156/94 H Blood Pressure Mean 114 Pulse Ox 93 Oxygen Delivery Method Room Air Room Air 11/24/21 20:43 Temperature Temperature Source Pulse Rate 83 Respiratory Rate 20 H Respiratory Effort Blood Pressure 129/96 H Blood Pressure Mean 107 Pulse Ox 95 Oxygen Delivery Method Room Air <MARY Snow - Last Filed: 11/24/21 20:51> Heart Score History: Slightly/Non-Suspicious ECG: Normal Age: >/= 65 years Risk Factors: >/= 3 Risk Factors or History of CAD Score: 4 MDM <MARY Snow - Last Filed: 11/24/21 20:51> MDM MDM Narrative Medical decision making narrative: Patient presents with mid back pain that radiated to both arms. There was no associated chest pain or shortness of breath. She appears well and nontoxic. She was slightly hypertensive at 156/94, otherwise normal vital signs. Her heart is regular, lungs clear, abdomen soft and nontender. She has tenderness over the bilateral thoracic paraspinals but no midline tenderness. Upper and lower extremity MSPs are intact with no lower extremity edema no calf tenderness. EKG is sinus rhythm with no ischemic changes and troponin x2 WNL. Chest x-ray shows no acute process. Heart score is 4 and 2 normal troponins effectively rule out ACS. On reexamination after analgesia patient is feeling significantly improved. She does relay that she has had similar back pain before and it is brought on by activity such as vacuuming or leaning over and today it started while doing dishes. She has no sharp or tearing pain and I have no concern for dissection. She was prescribed lidocaine patches to take in addition to her home Tylenol and tramadol and will follow up with her primary care doctor. Diagnosis 1. Musculoskeletal back pain Lab Data Labs: Laboratory Results - last 24 hr 11/24/21 11/24/21 11/24/21 17:18 17:18 19:23 WBC 12.2 H RBC 3.96 L Hgb 13.6 Hct 39.0 MCV 98.5 MCH 34.3 H MCHC 34.9 RDW Std Deviation 52.1 H RDW Coeff of Renea 14.2 Plt Count 251 MPV 9.7 Immature Gran % (Auto) 0.700 Neut % (Auto) 61.6 Lymph % (Auto) 25.9 [place] % (Auto) 10.3 H Eos % (Auto) 1.3 Baso % (Auto) 0.2 Absolute Neuts (auto) 7.5 Absolute Lymphs (auto) 3.16 Nucleated RBC % 0 Sodium 131 L Potassium 4.4 Chloride 97 L Carbon Dioxide 28.0 Anion Gap 6 BUN 26 H Creatinine 1.24 H Estim Creat Clear Calc 50.66 Est GFR (MDRD) Af Amer 56 L Est GFR (MDRD) Non-Af 46 L BUN/Creatinine Ratio 21.0 H Glucose 88 Calcium 8.2 L Troponin I High Sens 6 6 Radiography Diagnostic Testing: Clinical Impression(s) from Imaging Studies Chest X-Ray 11/24/21 17:30 IMPRESSION: Normal x-ray examination of the chest. Electronically Signed: Timo Gregorio MD at 17:50 EST , EKG Initial EKG: Attestation: I personally reviewed and interpreted this EKG as follows: Interpretation: Sinus Rhythm Comments: Normal sinus rhythm, normal intervals, no acute ischemic changes <Mack Lopez MD - Last Filed: 11/24/21 21:24> MDM MDM Narrative Medical decision making narrative: ATTENDING NOTE: Dr. Lopez: The patient was seen in conjunction with the PA-C/nurse practitioner. I performed a history and physical, and agree with the management of this patient. I agree with noted documentation and plan. I discussed the plan of care and final disposition with the physician associate/nurse practitioner. Thoracic back pain, low back pain, chronic. Patient having thoracic back pain, looked up her symptoms on the Internet and thought maybe she was having a heart attack. Afebrile. Vital signs noted. Regular rate and rhythm. Lungs clear to auscultation bilaterally. Abdomen soft and nontender. Chest pain work-up. Check EKG. Check chest x-ray. 2-hour troponin rule out. Discharge. Lab Data Labs: Laboratory Results - last 24 hr 11/24/21 11/24/21 11/24/21 17:18 17:18 19:23 WBC 12.2 H RBC 3.96 L Hgb 13.6 Hct 39.0 MCV 98.5 MCH 34.3 H MCHC 34.9 RDW Std Deviation 52.1 H RDW Coeff of [place]ene[place] 14.2 Plt Count 251 MPV 9.7 Immature Gran % (Auto) 0.700 Neut % (Auto) 61.6 Lymph % (Auto) 25.9 [place] % (Auto) 10.3 H Eos % (Auto) 1.3 Baso % (Auto) 0.2 Absolute Neuts (auto) 7.5 Absolute Lymphs (auto) 3.16 Nucleated RBC % 0 Sodium 131 L Potassium 4.4 Chloride 97 L Carbon Dioxide 28.0 Anion Gap 6 BUN 26 H Creatinine 1.24 H Estim Creat Clear Calc 50.66 Est GFR (MDRD) Af Amer 56 L Est GFR (MDRD) Non-Af 46 L BUN/Creatinine Ratio 21.0 H Glucose 88 Calcium 8.2 L Troponin I High Sens 6 6 Radiography Diagnostic Testing: Clinical Impression(s) from Imaging Studies Chest X-Ray 11/24/21 17:30 IMPRESSION: Normal x-ray examination of the chest. Electronically Signed: Timo Gregorio MD at 17:50 EST , Discharge Plan Triage Chief Complaint: Chest Pain ED Provider: Gilma Barnard Dx/Rx/DC Orders Clinical Impression: Back pain Instructions: ED Back Pain (Acute or Chronic) Prescriptions: New lidocaine 5 % adhesive patch,medicated 1 patch topical DAILY Qty: 1 RF: 0 No Action levalbuterol tartrate 45 mcg/actuation HFA aerosol inhaler 2 puff inhalation Q4H PRN (Reason: Wheezing) RF: 0 guaifenesin 600 mg tablet extended release 12hr 600 mg PO BID RF: 0 tramadol 50 MG tablet 50 mg PO TID RF: 0 lisinopril 40 MG tablet 40 mg PO QHS RF: 0 carvedilol 25 MG tablet 25 mg PO BID RF: 0 atorvastatin 20 MG tablet 20 mg PO QHS RF: 0 spironolactone 25 MG tablet 25 mg PO QHS RF: 0 levalbuterol HCl 1.25 mg/3 mL solution for nebulization 1 inh inhalation Q6H PRN PRN (Reason: Sob &/Or Wheezing) RF: 0 alprazolam 0.5 mg tablet 0.5 mg PO TID PRN PRN (Reason: Anxiety) RF: 0 gabapentin 300 mg capsule 600 mg PO QHS RF: 0 psyllium Packet 1 packet PO DAILY RF: 0 pantoprazole 40 mg Tablet,Delayed Release (Dr/Ec) 40 mg PO DAILY RF: 0 albuterol sulfate 90 mcg/actuation Hfa Aerosol Inhaler 2 puff INHALATION Q4H PRN (Reason: breathing) RF: 0 diphenhydramine-acetaminophen [Tylenol PM Extra Strength] 25-500 mg Tablet 1,000 tab PO QHS PRN PRN (Reason: Sleep) RF: 0 hydrocodone-acetaminophen [hydrocodone-acetaminophen] 1 TABLET tablet 1 tab PO Q6H PRN PRN (Reason: Pain) 3 Days Qty: 10 RF: 0 prednisone 10 MG tablet 10 mg PO UD Qty: 33 RF: 0 doxycycline monohydrate 100 MG capsule 100 mg PO BID Qty: 14 RF: 0 fluticasone propion-salmeterol [Advair Diskus] 250-50 mcg/dose blister with device 1 inh inhalation BID Qty: 60 RF: 0 (DME) Aerochamber MV Spacer See Rx Instructions .ROUTE .MEDSUPPLY Qty: 1 RF: 0 Primary Care Provider: Nate Gray Referrals: Nate Gray MD [Primary Care Provider] - Activity Restrictions/Additional Instructions: Today you were seen for back pain. There is no evidence of heart attack. You had a normal heart rhythm and blood work. Your chest x-ray looked normal. When I push on your back your muscles seem to hurt and spasm. I prescribed lidocaine patches that you can take in addition to your home Tylenol and tramadol. You can also try Voltaren gel which is [id number]. Please keep your appointment with your primary care doctor. Disposition Disposition: Home, Self Care Discharge Date/Time: 11/24/21 21:00
[2021-11-24] MEDS: Aspirin 81 MG TAB.CHEW 324 MG PO (17:34)
[2021-11-24 17:39] LABS: Absolute Lymphocyte Count 3.16 X10^3/uL (0.83-4.51); Absolute Neutrophil Count 7.5 X10^3/uL (2.0-7.7); Basophil# 0.03 X10^3/uL; Basophil% 0.2 % (0-1); Eosinophil# 0.16 X10^3/uL; Eosinophils% 1.3 % (0-5); Hemoglobin 13.6 g/dL (12.0-15.0); Lymphocyte # 3.16 X10^3/ul (0.83-4.51); Lymphocyte % 25.9 % (19-41); Mean Corp Hgb Conc 34.9 g/dL (32-36); Mean Corpuscular Hgb 34.3 pg (27.0-32.0); Mean Corpuscular Volume 98.5 fL (81-99); Mean Platelet Vol. 9.7 fl (6.2-12.0); Monocyte# 1.26 X10^3/uL; Monocyte% 10.3 % (0-10); NRBC Flagged by Analyzer 0 % (0-5); Neutrophil # 7.51 X10^3/uL (2.7-7.7); Neutrophil % 61.6 % (47-70); Platelet Count 251 K/mm3 (150-450); RBC Distribution Width CV 14.2 % (11.6-14.6); RBC Distribution Width SD 52.1 fl (35.1-43.9); Red Blood Count 3.96 M/mm3 (4.2-5.4); White Blood Count 12.2 K/mm3 (4.4-11.0)
[2021-11-24 18:00] LABS: Anion Gap 6 (5-15); BUN 26 mg/dL (7-18); Calcium,Total 8.2 mg/dL (8.5-10.1); Chloride 97 mmol/L (98-107); Creatinine, Serum 1.24 mg/dL (0.55-1.02); EST Glomerular Filtration Rate 46 mL/min (>60); Est Glom Filt Rate - Afr Amer 56 mL/min (>60); Estimated Creatinine Clearance 50.66 ml/min; Glucose 88 mg/dL (74-106); Potassium 4.4 mmol/L (3.5-5.1); Sodium Level 131 mmol/L (136-145); Troponin-I HS 6 pg/mL (3.0-54.0)
[2021-11-24] MEDS: 0.9% Normal Saline 1,000 ML 999 ML IV (18:13)
[2021-11-24] MEDS: Morphine 4 MG/ML Syringe IV (18:13)
[2021-11-24] MEDS: Ondansetron 4 MG/2 ML Vial IV (18:13)
[2021-11-24 20:28] LABS: Troponin-I HS 6 pg/mL (3.0-54.0)
[2021-11-24 20:43] VITALS: BP 129/96; PULSE 83; RESP 20; O2SAT 95
== END 2021-11-24 21:00 | disposition home or self-care (01) ==
PROVIDERS: Emergency Provider Physician Assistant; PCP Internal Medicine; Visit Provider Physician Assistant
DX: M54.9 Dorsalgia, unspecified (principal); R07.9 Chest pain, unspecified; F17.210 Nicotine dependence, cigarettes, uncomplicated
CPT/HCPCS: 71045; 80048; 84484; 85025; 93005; 96374; 96375; 99285; J7030; A4216; J2405

== ENCOUNTER 2021-12-20 12:54 | Outpatient (CLI) | payer MEDICARE, SELFPAY ==
--- NOTE | 2021-12-20 12:58 | CT_ITS ---
STUDY: LOW DOSE CT LUNG CANCER SCREENING REASON FOR EXAM: Female, 66 years old. 8 cigarettes a day x50 years RADIATION DOSAGE (If Supplied By Facility): CTDIvol = ( 2.39 ) mGy, DLP = ( 79.52 ) mGycm TECHNIQUE: No contrast was administered. Low dose technique was utilized (average mAS-38 and kVp 120). 1.25 mm axial source images with a slice interval of 1.25-mm were reconstructed in lung windows. 2.5 mm axial source images with a slice interval of 2.5-mm were reconstructed in lung windows. 5.0 mm axial source images with a slice interval of 5.0-mm were reconstructed in soft tissue windows. Nodule measured using lung windows on PACS and/or independent workstation with automated measurement of minimum and maximum diameter. Nodule measurement reported as average diameter rounded to the nearest whole number. Growth is defined as an increase ins size of greater than 1.5 mm. COMPARISON: 12/30/2019 FINDINGS: Lungs are mildly hyperexpanded with emphysematous blebs noted in the apices. There are chronic interstitial changes without a suspicious noncalcified mass or nodule. No organized infiltrate or groundglass opacifications. Soft tissue windows show normal-appearing thyroid gland. No suspicious adenopathy. Peripheral calcifications noted in the thoracic aorta without aneurysm. There are calcified coronary vessels Degenerative bony changes noted. Limited cuts of the upper abdomen do not show suspicious abnormality has been previous surgery in the left upper quadrant. Contour abnormalities noted in the left kidney that may represent simple cysts CT/Low Dose CT Lung Screening IMPRESSION: Lung-RADS category 2 - Continue annual screening with LDCT in 12 months. IMPORTANT NOTES FOR USE: ACR Lung-RADS Version 1.1 Assessment Categories Release Date: 2018 Category: Coded 0-4 bases on nodule(s) with highest degree of suspicion. Negative screen is defined as categories 1 and 2; a positive screen is defined as categories 3 and 4. Category 3 and 4A nodules that are unchanged on interval CT should be coded as category 2, and individuals returned to screening in 12 months. Category 4X: Category 3 or 4 nodules with additional imaging findings that increase the suspicion of lung cancer, such as spiculation, GGN that doubles in size in 1 year, enlarged lymph notes, etc. Category Modifiers: S (significant finding unrelated to lung cancer) Electronically Signed: Joseluis Clark MD at 10:32 EDT ,
== END 2021-12-20 23:59 | disposition home or self-care (01) ==
LOC: CT 12:58
PROVIDERS: PCP Internal Medicine; Referring Provider Internal Medicine Critical Care Medicine; Visit Provider Internal Medicine Critical Care Medicine
DX: F17.210 Nicotine dependence, cigarettes, uncomplicated (principal)
CPT/HCPCS: 71271

== ENCOUNTER 2022-01-05 08:11 | Outpatient (CLI) | payer MEDICARE, SELFPAY ==
[2022-01-05 08:35] VITALS: PULSE 100; PULSE 102; PULSE 103; PULSE 105; PULSE 86; PULSE 88; PULSE 94; O2SAT 91; O2SAT 92; O2SAT 93; O2SAT 95; O2SAT 96
--- NOTE | 2022-01-05 13:13 | WT_ITS ---
PSN 6 Minute Walk Test 6 Minute Walk Test 6 Minute Walk Test: 6 Minute Walk Test PSN:6-Minute Walk Test Start: 01/05/22 08:34 Freq: Status: Active Protocol: [id number] Document 01/05/22 08:35 FR (Rec: 01/05/22 08:39 FR [id number]) 6 Minute Walk Test Date Performed 01/05/22 Time Performed 08:15 Height 4 ft 11 in Weight: 68.946 kg Weight in Pounds 152.[address]: Assistive device used: None Pre-test Oxygen Delivery Method Room Air Pulse Ox (%) 95 Pulse Rate (60-100 beats/min) 86 1st minute Oxygen Delivery Method Room Air Pulse Ox (%) 93 Pulse Rate (60-100 beats/min) 94 2nd minute Oxygen Delivery Method Room Air Pulse Ox (%) 91 Pulse Rate (60-100 beats/min) 100 3rd minute Oxygen Delivery Method Room Air Pulse Ox (%) 92 Pulse Rate (60-100 beats/min) 102 H 4th minute Oxygen Delivery Method Room Air Pulse Ox (%) 93 Pulse Rate (60-100 beats/min) 102 H 5th minute Oxygen Delivery Method Room Air Pulse Ox (%) 93 Pulse Rate (60-100 beats/min) 103 H 6th minute Oxygen Delivery Method Room Air Pulse Ox (%) 96 Pulse Rate (60-100 beats/min) 105 H Dyspnea Guerrero Scale (0-10) 5 Exertion Guerrero Scale (6-20) 11 Post-test Oxygen Delivery Method Room Air Pulse Ox (%) 95 Pulse Rate (60-100 beats/min) 88 Full Laps Walked 15 Partial Lap, Number of Tiles Walked 27 Total Distance Walked (ft) 912 Interpretation Interpretation: The patient was able to ambulate 912 feet over the course of 6 minutes on room air with no assistive devices or breaks. The patient did have significant desa turation from a baseline of 95% to as low as 91%. There was an element of reflexive tachycardia noted. These findings are consistent with a respiratory limitation exercise tolerance. Recommendations Recommendations: No supplemental oxygen is indicated at this time. However, patient will need to be followed closely given level of desaturation.
== END 2022-01-05 23:59 | disposition home or self-care (01) ==
LOC: PSN 08:13
PROVIDERS: PCP Internal Medicine; Referring Provider Internal Medicine Critical Care Medicine; Visit Provider Internal Medicine Critical Care Medicine
DX: J44.9 Chronic obstructive pulmonary disease, unspecified (principal); F17.210 Nicotine dependence, cigarettes, uncomplicated
CPT/HCPCS: 94618

== ENCOUNTER 2022-01-11 08:07 | Outpatient (CLI) | payer MEDICARE, SELFPAY ==
--- NOTE | 2022-01-11 12:39 | PFT ---
INTRODUCTION: The patient is a 66-year-old female that presents for pulmonary function studies secondary to a diagnosis of COPD. Respiratory therapy reported good patient effort. Bronchodilators were used during testing. INTERPRETATION: Forced expiration spirometry demonstrates the presence of a severe large airways obstructive ventilatory defect. There was no significant response to aerosolized bronchodilators. Spirograms are of fair quality but do not plateau indicating slow emptying of the lungs. Body plethysmography was performed and revealed an elevated TLC and RV, indicative of underlying hyperinflation and air trapping. Diffusing capacity by single breath CO was mildly reduced to 65% of predicted. IMPRESSION: Irreversible severe obstructive ventilatory impairment with associated hyperinflation, air trapping and mild reduction in diffusing capacity.
== END 2022-01-11 23:59 | disposition home or self-care (01) ==
LOC: PSN 08:07
PROVIDERS: PCP Internal Medicine; Visit Provider Internal Medicine Critical Care Medicine
DX: J44.9 Chronic obstructive pulmonary disease, unspecified (principal)
CPT/HCPCS: 94060; 94726; 94729

== ENCOUNTER 2022-03-15 08:19 | Day surgery (SDC) | payer MEDICARE, SELFPAY ==
--- NOTE | 2022-02-24 16:05 | EKG12_ITS ---
Test Reason : PREOP Blood Pressure : / mmHG Vent. Rate : 075 BPM Atrial Rate : 045 BPM P-R Int : 000 ms QRS Dur : 076 ms QT Int : 388 ms P-R-T Axes : 000 055 028 degrees QTc Int : 433 ms Accelerated Junctional rhythm Abnormal ECG Confirmed by HUOG KULKARNI, AMIRA ([id number]), publication editor DRISS GOMEZ ([id number]) on 02/27/2022 10:00:09 A M Referred By: Dk Amato Confirmed By:RAGHAV ARIAS MD
[2022-02-27 12:35] LABS: Anion Gap 4 (5-15); BUN 11 mg/dL (7-18); BUN/Creat Ratio 15.2 RATIO (10-20); Calcium,Total 9.1 mg/dL (8.5-10.1); Chloride 100 mmol/L (98-107); Creatinine, Serum 0.72 mg/dL (0.55-1.02); EST Glomerular Filtration Rate 86 mL/min (>60); Est Glom Filt Rate - Afr Amer 103 mL/min (>60); Glucose 116 mg/dL (74-106); Potassium 4.4 mmol/L (3.5-5.1); Sodium Level 131 mmol/L (136-145)
[2022-02-27 12:39] LABS: Hematocrit 40.5 % (37-47); Hemoglobin 13.3 g/dL (12.0-15.0); Mean Corp Hgb Conc 32.8 g/dL (32-36); Mean Corpuscular Volume 97.6 fL (81-99); Mean Platelet Vol. 9.9 fl (6.2-12.0); Platelet Count 352 K/mm3 (150-450); RBC Distribution Width CV 13.2 % (11.6-14.6); RBC Distribution Width SD 47.4 fl (35.1-43.9); Red Blood Count 4.15 M/mm3 (4.2-5.4); White Blood Count 8.4 K/mm3 (4.4-11.0)
[2022-03-14 07:44] VITALS: BMI 30.9
--- NOTE | 2022-03-15 09:50 | PCM.HP.BLA ---
History and Physical Date of Admission: 03/15/22 Visit Reasons: PAD Chief Complaint: PAD Sas Etl Developer Required: No Is patient in pain?: No Allergies amlodipine Allergy (Verified 02/13/22 15:01) Unknown clonidine Allergy (Verified 02/13/22 15:01) Unknown adhesive Adverse Reaction (Verified 02/13/22 15:01) Rash codeine Adverse Reaction (Verified 02/13/22 15:01) Nausea Medications tramadol 50 mg PO TID 07/26/15 [History Confirmed 02/13/22] atorvastatin 20 mg PO QHS 05/28/19 [History Confirmed 02/13/22] carvedilol 25 mg PO BID 05/28/19 [History Confirmed 02/13/22] spironolactone 25 mg PO QHS 05/28/19 [History Confirmed 02/13/22] levalbuterol HCl 1 inh INHALATION Q6H PRN PRN 12/30/19 [History Confirmed 02/13/22] alprazolam 0.5 mg PO TID PRN PRN 02/12/21 [History Confirmed 02/13/22] pantoprazole 40 mg PO DAILY 02/12/21 [History Confirmed 02/13/22] psyllium 1 packet PO DAILY 02/12/21 [History Confirmed 02/13/22] diphenhydramine-acetaminophen [Tylenol PM Extra Strength] 1,000 tab PO QHS PRN PRN 02/13/21 [History Confirmed 02/13/22] levalbuterol tartrate 45 mcg/actuation aerosol inhaler 2 puff INHALATION Q4H PRN g 03/21/21 [History Confirmed 02/13/22] lidocaine 1 patch TOPICAL DAILY #1 ea 11/24/21 [Rx Confirmed 02/13/22] gabapentin 300 mg capsule 300 mg PO BID cap 12/09/21 [History Confirmed 02/13/22] fluticasone fur. 200 mcg-umeclid 62.5 mcg-vilant 25 mcg inhalat.powder 1 inh INHALATION DAILY #60 ea 01/12/22 [Rx Confirmed 02/13/22] Lactobacillus acidophilus 20 billion cell capsule 10 mg PO DAILY 02/13/22 [History Confirmed 02/13/22] calcium carb-vit [id number] 333 mg-200 unit-133 mg-5 mg tablet 1 tab PO DAILY 02/13/22 [History Confirmed 02/13/22] potassium chloride 20 mEq tablet,extended release 20 meq PO DAILY 02/13/22 [History Confirmed 02/13/22] [facility] Medical History (Updated 02/13/22 @ 15:[address] Dk Amato MD) Alcohol abuse Anxiety Asthma Closed fracture of fifth metatarsal bone of left foot Clostridium difficile colitis COPD (chronic obstructive pulmonary disease) Diverticulitis of colon without hemorrhage Duodenal ulcer Essential hypertension GERD (gastroesophageal reflux disease) H/O spleen injury History of pelvic hematoma Hyperlipemia Hypertension Impaired fasting glucose Incisional hernia without mention of obstruction or gangrene Injury, spleen, with capsular tears Osteoarthritis Pneumohemothorax, traumatic Pseudocyst of pancreas Spleen hematoma Tobacco abuse Surgical History (Updated 02/13/22 @ 14:57 by Lucrecia Sunday) H/O colostomy H/O: History of hernia repair History of spinal surgery Family History Mother Heart disease Hypertension Diabetes Sister Hypertension Brother Hypertension Sister Hypertension Cervical cancer Brother Pancreatic cancer Social History household members: spouse housing: house Smoking Status: Current every day smoker tobacco type: cigarettes Electronic Cigarette Use: not used second hand exposure: Yes alcohol intake: current alcohol intake frequency: a few times a week substance use type: does not use caffeine: Yes what type of physical activity do you participate in: bicycling frequency: 1-2 times per week HPI HPI HPI: BAHMAN MICHELE, is a 66 F who presents to the office today for surgical consultation regarding Parcher for arterial occlusive disease. The patient is referred by Silvia Severino CNP and a written copy of my surgical consult recommendations will return to her. At the [facility] on January 10, 2022 the patient had PVRs performed. At rest the right DP and PT had monophasic Doppler waveforms. The right DP and PT ankle-brachial indices were 0.55 and 0.59 respectively. The left DP and PT Doppler waveforms were monophasic in the left DP and PT ankle-brachial indices were 0.43 and 0.45 respectively. Based upon that examination Dr. Dana Suggs suggested right iliofemoral disease and left superficial femoral disease as well as distal superficial femoral or popliteal disease In addition the patient has COPD and her most recent visit with her petroleum engineering professor Dr. Ivis Zeng at [facility] on January 18, 2022. The patient has centrilobular emphysema. Acute bronchitis. Ongoing tobacco use disorder. As of November 24, 2021 at an emergency room visit for acute back pain the patient was noted to have a BUN of 26 and a creatinine of 1.24 with an estimated creatinine clearance of 50. The acute back pain was felt to be muscular spasm and a topical lidocaine patch was recommended. Patient's current primary concern is that she has significant bilateral calf pain. She has been retired for 3 years but she actively works at her [employer]. 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 She finds it very difficult to walk complaining that she has extreme pain in bilateral calves and then subsequent numbness of her legs. She has to rest an extensive period of time until she is able to ambulate again. She has had a chronic degree of mild lower extremity swelling. She is not diabetic. In the recent past she had trouble with rib fractures after her daughter fell on her. She developed a pneumothorax and hemothorax and required drainage. She had multiple rib fractures at that time. Then she had another fall that caused a splenic laceration requiring at least 8 units of blood and subsequent interventional radiology coil embolization. She states she is not currently on anticoagulant but because of the pain in her legs she herself started herself on 325 mg aspirin daily. She does know that she does have a remote history of peptic ulcer disease As noted above she has been recently seen by pulmonology. The patient continues to smoke cigarettes at at least 10/day. She is aware that she chronically wheezes. She does have incidental gallstones. She has a large mesh repair of her ventral abdominal wall with a previous history of perforated diverticulitis with a diverting ileostomy. ROS General General: Yes weight change and fatigue; No appetite, colon cancer, breast cancer or weakness HEENT HEENT: No difficulty swallowing, eye injury, eye surgery, swollen glands or hoarseness Endo Endocrine: No thyroid disease, diabetes mellitus, thyroid cancer, Hair loss, heat intolerance or cold intolerance Skin Skin: No rash or changing moles Musc Musculoskeletal: Yes back problems and arthritis; No rheumatoid arthritis, gout or joint pain Cardio Cardiovascular: Yes high blood pressure; No murmur, pacemaker, heart disease, atrial fibrillation, heart attack, heart stent, palpitations, shortness of breat with exertion or chest pain Psych Psychiatric: Yes anxiety; No depression or hearing voices Resp Respiratory: Yes shortness of breath, No sleep apnea, Yes cough, Yes COPD, No asthma, Yes emphysema and No wheezing Gastro Gastrointestinal: No abdominal pain, No nausea or vomiting, No diarrhea, No constipation, No blood in stool, Yes acid reflux, Yes hemorrhoids, No ulcers, Yes gallbladder problem and No black,tarry stools Vik Hematologic: No blood thinners, No blood disorders, No bleeding, No anemia and No blood clots Neuro Neurologic: No system reviewed and no additional complaints, except as documented, No as per HPI, No abnormal gait, No abnormal hearing, No abnormal movements, No abnormal speech, No behavioral changes, No burning sensations, No confusion, No convulsions, No disequilibrium, No dizziness, No localized weakness, No frequent falls, No headache(s), No lack of coordination, No loss of vision, No memory loss, Yes numbness (Both legs), No other visual disturbances, No radicular pain, No restless legs, No sensory deficit, No syncope, Yes tingling (Both legs), No tremor(s), No weakness and No other Exam Const General: cooperative, no acute distress and anxious Nutritional Appearance: obese Orientation: alert, awake and oriented x3 HENMT Head: normal to inspection Eyes General: appearance normal, both eyes and all related structures Neck Other: Short neck, carotids difficult to palpate, I am not able to detect a carotid bruit secondary to end expiratory wheezing Chest Other: Increased anterior posterior diameter Resp Other: Bilateral end expiratory wheeze, poor respiratory excursion Cardio Rate: regular rate Rhythm: regular rhythm GI Palpation: soft and no hepatosplenomegaly Other: Soft, overweight, nontender, bowel sounds present Musc Cervical Spine: normal cervical lordosis Skin Other: Grossly intact Neuro General: patient alert, patient awake and patient oriented x3 Extrem Other: Bilateral radial pulses 2+. Bilateral brachial pulses 2+. Bilateral carotids 2+ cannot detect bruit secondary to wheezing Right femoral 0; right popliteal, DP and PT 0 Left femoral 1+; left popliteal, DP and PT 0 Bilateral feet are pink. There is elevation pallor and dependent rubor. Venous filling is noted. I do not detect any open sores. Psych Mood: anxious mood Assessment and Plan Assessment and Plan (1) Smoking greater than 30 pack years: Status: Acute (2) PAOD (peripheral arterial occlusive disease): Status: Acute Plan - Dr. Dk Amato MD: I have instructed the patient that she clearly on noninvasive testing and clinical examination has a multi segmental bilateral extremity peripheral arterial occlusive disease. I suspect severe right iliofemoral disease as I am not able to palpate a right femoral pulse. She has a least moderate disease on the left. She states that she had a splenic embolization done through a puncture in the left groin. She likely has additional multisegmental disease involving femoral and infrageniculate vessels. I have discussed with her the potential of starting a procedure with an ultrasound-guided left common femoral access with an abdominal pelvic arteriogram. She is aware that right common femoral access or even left brachial access could be required. She is aware of technique, benefit, risk, alternatives. She will remain on her low-dose aspirin as I have asked her to cease a full dose aspirin. She is aware that there are no guarantees of success. She is aware that I am not anticipating that we will be able to resolve all areas of occlusion or stenosis. She has had an opportunity to ask and have questions answered. I anticipating that this will be an increased difficulty procedure and we will schedule and provide time as appropriate. She is aware that she is wheezing. I have asked her to continue to work hard with her tobacco cessation and maximization of her medical care She has had an opportunity to ask and have questions answered we will schedule and proceed at her discretion. I very much appreciate the kind opportunity. Copy: Dr. Nate Gray and Silvia Severino, DON and Dr.Ann Erum Amato M.D., F.A.C.S. I have re-examined the patient. There are no clinical changes since date of exam. Dk Amato M.D., F.A.C.S.
--- NOTE | 2022-03-15 12:12 | PCM.OPRPT ---
Problems Associated Problem List Diagnoses (1) PAOD (peripheral arterial occlusive disease): Report of Operation Date of Procedure: 03/15/22 Pre-Operative Diagnosis: Peripheral arterial occlusive disease with bilateral lower extremity vascular claudication Post-Operative Diagnosis: Bilateral external iliac occlusive disease. Bilateral superficial femoral artery occlusions with refill and intact infrageniculate runoff Surgery/Procedure Performed:: Abdominal pelvic bilateral lower extremity arteriogram Right external iliac 5 x 80 EverCross angioplasty and 6 x 80 ever flex stenting and 6 x 80 EverCross angioplasty and 6 x 20 EverCross angioplasty Left external iliac 6 x 2 EverCross angioplasty Description of Surgical Findings:: Timeout informed consent was obtained. 67-year-old female was taken to the special procedures lab placed supine on the table. She had a self inflicted wound right lower abdomen just above the groin from some type of support belt. Both groins were prepped and draped and then the right groin was further occluded off with an OpSite dressing. Under ultrasound guidance the left common femoral artery was identified. Under ultrasound guidance 2% lidocaine was instilled as a local anesthetic and throughout the procedure a total 20 cc was used. Under ultrasound guidance a micropuncture needle was inserted retrograde and left common femoral artery followed by micropuncture wire micropuncture sheath and then a 035 J-wire and a 5 Djiboutian sheath. Using an 035 angled Glidewire 5 Djiboutian flush catheter was placed into the abdominal aorta just superior to the renal arteries. Visipaque contrast was used throughout and a total of 60 cc was used for the procedure. An AP aortogram was obtained this demonstrated clinically significant disease of the right external iliac and of the left external iliac. I was able to advance the Glidewire through the disease of the right external iliac and was able to advance the flush catheter. I then exchanged out for a Magic wire. I placed a 6 Djiboutian 45 cm sheath through the left groin into the right common iliac. I then was able to place a 5 x 80 mm EverCross balloon into the right external iliac and balloon angioplasty was performed. It is of note that is soon as the 6 Djiboutian sheath was inserted the patient received 6000 units of heparin and then based upon ACT measurements later in the procedure he received an additional 1000 units of heparin. Post angioplasty view of the right external iliac demonstrated improvement but residual area of distal stenosis. I then placed a 6 x 80 mm ever flex stent and then seated that in place 6 x 80 mm EverCross balloon. There was some residual mild stenosis distally in the stent so I placed a 6 x 20 mm Powerflex balloon and that was insufflated up to 17 belinda of pressure. Completion views demonstrated resolution. I then obtained static views of the right lower extremity. Withdrew the sheath to the left common iliac and obtain views of the left abdomen showing focal area of stenosis within the proximal left external iliac. Treated that with the 6 x 20 mm Powerflex balloon. Images now demonstrate improvement. I obtained static views then of the left lower extremity. Having completed that I used a Perclose device to secure the left groin which mostly assisted with hemostasis but direct pressure was required as well. She was subsequently taken to the recovery area in satisfactory addition no apparent complication. Images demonstrate widely patent renal arteries and abdominal aorta. The common iliacs bilaterally appear to be patent. There was diffuse disease involving the right external iliac artery with at least an area of 70% stenosis distally over a length of 2 cm. There is 30% stenosis of the origin of the right internal iliac. Occlusion of the right superficial femoral artery with refill distally just proximal to Perez's canal. There is a significant mount of collateralization around the right superficial femoral artery occlusion the profundofemoral was patent on the right. The proximal popliteal on the right and infrageniculate vessels on the right are patent with the posterior tibial being dominant. There is focal area of at least 60% stenosis within the proximal left external iliac artery. Branching of the left internal iliac is identified but there appears to be high-grade stenosis of the origin. The left superficial femoral artery is calcific and rather diminutive with an area of dense calcification close to the mid thigh and then just distal that an area of irregular complete occlusion with significant amount of collateralization. The distal superficial femoral artery is patent as is the popliteal. Again there is three-vessel infrageniculate runoff of the left. Subsequent to the angioplasty and stenting there is resolution of the clinically significant stenosis of the right external iliac. The left external iliac appears resolved subsequent to the balloon angioplasty. The superficial femoral artery on the right has a flush occlusion though there is slight hyper contrast area suggesting the origin. The superficial femoral artery on the left is quite calcified and diminutive in caliber with complete occlusion in its mid section and significant amount of collateralization consistent with chronic disease. Dk Amato M.D., F.A.C.S. Surgeon: Dk Amato Type of Anesthesia: IV Sedation and Local
[2022-03-15 15:18] VITALS: BP 165/132; PULSE 76; RESP 16; TEMP 36.6; O2SAT 99
[2022-03-15 16:34] VITALS: BP 174/73; PULSE 67; RESP 16; TEMP 36.8; O2SAT 95
--- NOTE | 2022-03-15 17:31 | NURSING ---
Pt ambulated with not oozing or bleeding.
== END 2022-03-15 17:32 | disposition home or self-care (01) ==
LOC: CLSP 12:12 → PCU 15:13
PROVIDERS: PCP Internal Medicine; Referring Provider Surgery; Visit Provider Surgery
DX: I73.9 Peripheral vascular disease, unspecified (principal); J44.9 Chronic obstructive pulmonary disease, unspecified; I10 Essential (primary) hypertension; E78.5 Hyperlipidemia, unspecified; F17.210 Nicotine dependence, cigarettes, uncomplicated; E66.9 Obesity, unspecified; K21.9 Gastro-esophageal reflux disease without esophagitis; M19.90 Unspecified osteoarthritis, unspecified site; Z79.899 Other long term (current) drug therapy
CPT/HCPCS: 36200; 36245; 36246; 36415; 37220; 37221; 75625; 75716; 76937; 80048; 85027; 93005; 99152; 99153; J7030; C1725; C1760; C1769; C1876; C1894

== ENCOUNTER 2022-03-24 19:22 | Emergency (ER) | payer MEDICARE, SELFPAY ==
[2022-03-24 19:23] VITALS: BP 140/95; PULSE 103; RESP 15; TEMP 37.2; O2SAT 95; BMI 30.9
--- NOTE | 2022-03-24 19:46 | CT_ITS ---
STUDY: CTA OF THE ABDOMINAL AORTA AND BILATERAL LOWER EXTREMITIES REASON FOR EXAM: Female, 67 years old. Leg claudication left greater than right. RADIATION DOSAGE (If Supplied By Facility): CTDIvol = ( 6.80 ) mGy, DLP = ( 973.07 ) mGycm TECHNIQUE: Axial CT angiography multi-detector data acquisition was obtained from the mid abdomen to the feet following intravenous administration of IV 100mL [id number]-[id number]. Axial images and MIP images were reconstructed from the axial data set. Post-processing of the angiographic images was performed, with multiplanar reformation and 3D reconstruction. Individualized dose optimization techniques were used for this CT. TECHNICAL QUALITY: Good COMPARISON: CT of the abdomen and pelvis, 02/13/2021. Descriptors of Narrowing: None (0%) Mild (< 50%) Moderate (50-70%) Severe (70-90%) Subtotal/Total Occlusion (90-100%) Non-Evaluable (technically non-diagnostic FINDINGS: Abdominal aorta: Atherosclerotic changes of the abdominal aorta no stricture. No dissection or aneurysm. Right common iliac artery: Atherosclerotic changes with mild stenosis. There appears to be a focal aneurysm versus mild dissection anterior vessel. Right external iliac artery: There is a patent stent running the length of the external iliac artery. Right internal iliac artery: Mild atherosclerotic changes without stenosis. Left common iliac artery: Atherosclerotic changes with mild stenosis. Left external iliac artery: Atherosclerotic changes with mild stenosis. Left internal iliac artery: Nonvisualization of the proximal internal iliac artery. The pelvic branches are opacified most likely via collaterals. RIGHT LOWER EXTREMITY Right common femoral artery: Atherosclerotic changes with mild stenosis. Right profundus femoris: No demonstrated narrowing. Right superficial femoral: Severe stenosis at the origin of the superficial femoral artery. Calcifications are seen along the course of the artery without contrast consistent with occlusion. Right popliteal artery: Reconstitution via collaterals from the profunda just below Perez''s canal. Minimal atherosclerotic changes without stenosis. Right tibioperoneal trunk: No demonstrated narrowing. Right anterior tibial artery: No demonstrated narrowing. Right posterior tibial artery: No demonstrated narrowing. Right peroneal artery: No demonstrated narrowing. LEFT LOWER EXTREMITY Left common femoral artery: Atherosclerotic changes with mild to moderate stenosis. Left profundus femoris: No demonstrated narrowing. Left superficial femoral: Scattered atherosclerotic changes with 50-60% stenosis of the proximal SFA. This appears to occlude in the mid vessel. Left popliteal artery: Popliteal reconstitutes just below Perez''s canal via collaterals from the profunda. There is scattered atherosclerotic plaque without stenosis. Left tibioperoneal trunk: No demonstrated narrowing. Left anterior tibial artery: No demonstrated narrowing. Left posterior tibial artery: No demonstrated narrowing. Left peroneal artery: No demonstrated narrowing. The lower half of the kidneys appear normal. Normal ureters. The visualized small bowel and colon appear grossly normal. Normal IVC and retroperitoneum. Normal urinary bladder. Normal uterus and ovaries. There is no pelvic lymphadenopathy or mass. No free air or free fluid is seen within the peritoneal cavity. Mesh repair of a ventral hernia. The abdominal wall is otherwise unremarkable. Degenerative changes lumbar spine hips and knees. There is a popliteal cyst on the right. CT/CTA Abd w/Runoff W/WO Contrast IMPRESSION: 1. Scattered atherosclerotic changes of the lower abdominal aorta without dissection or aneurysm. 2. 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 3. Right external iliac stent. 4. Occlusion of the right SFA. The popliteal reconstitutes below Perez''s canal. Normal calf vessels. 5. Occlusion of the left internal iliac artery. 6. Mild stenosis of the proximal left SFA with occlusion at its midpoint. The popliteal reconstitutes below Perez''s canal. Normal left calf vessels. 7. Ventral hernia repair. 8. Right popliteal cyst. Electronically Signed: Alex Hodge DO at 21:40 EDT ,
--- NOTE | 2022-03-24 19:51 | EDS_ITS ---
HPI History of Present Illness HPI Narrative: Lower extremity pain and numbness. Chief Complaint: Other, Pain/Inj Informant: patient Onset/Context/Timing Onset: Days Context: Gradual Onset Timing: Intermittent Current Severity: Mild Maximum Severity: Mild Associated Symptoms Associated Symptoms: Positive for Parasthesia; Negative for Weakness or Loss of Funtion Narrative Narrative: 61-year-old female history of COPD, peripheral arterial disease for which she is on Plavix. She had recent bilateral femoral percutaneous stents placed by Dr. Dk Marks about 9 days ago. She continues to smoke about a pack of ciga rettes a day. Complaining of claudication pain and numbness to her left foot. States she cannot walk very far without having the pain. This is been since she had the stents placed and it is no better and possibly worse. Prior similar symptoms: Yes Recent Illness/Hospitalization: No ROS ROS ED ROS Narrative Denies recent illness. Review of Systems ROS Unobtainable: Denies due to encephalopathy Constitutional Constitutional ED: Denies chills Eyes Eyes: Denies blurry vision ENT ENT ED: Denies ear pain Cardiovascular Cardiovascular: Denies chest pain Respiratory/Chest Respiratory/Chest: Denies cough Gastrointestinal Gastrointestinal: Denies abdominal pain Genitourinary Genitourinary ED: Denies dysuria Musculoskeletal Musculoskeletal: Denies arthralgias Integumentary Denies abscess Neurologic Neurologic: Denies headache(s) Psychiatric Psychiatric: Denies anxiety Endocrine Endocrinology: Denies polydipsia Hematologic/Lymphatic Hematologic/Lymphatic: Denies easy bleeding Allergic/Immunologic Allergic/Immunologic ED: Denies mouth swelling PFSH [facility] Medical History Alcohol abuse Anxiety Asthma Closed fracture of fifth metatarsal bone of left foot Clostridium difficile colitis COPD (chronic obstructive pulmonary disease) Diverticulitis of colon without hemorrhage Duodenal ulcer Essential hypertension GERD (gastroesophageal reflux disease) H/O spleen injury History of pelvic hematoma Hyperlipemia Hypertension Impaired fasting glucose Incisional hernia without mention of obstruction or gangrene Injury, spleen, with capsular tears Osteoarthritis Pneumohemothorax, traumatic Pseudocyst of pancreas Spleen hematoma Tobacco abuse Home Medications tramadol 50 mg tablet 50 mg PO TID pain/sleep 07/26/15 [History Last Taken 12/30/19 15:00] atorvastatin 20 mg tablet 20 mg PO QHS cholesterol 05/28/19 [History Last Taken 12/29/19 21:00] carvedilol 25 mg tablet 25 mg PO BID BP 05/28/19 [History Last Taken 03/15/22] spironolactone 25 mg tablet 25 mg PO QHS BP 05/28/19 [History Last Taken 12/29/19 21:00] levalbuterol HCl 1.25 mg/3 mL solution for nebulization 1 inh inhalation Q6H PRN PRN Sob &/Or Wheezing 12/30/19 [History Last Taken Unknown] alprazolam 0.5 mg tablet 0.5 mg PO TID PRN PRN Anxiety 02/12/21 [History Last Taken 03/15/22] pantoprazole 40 mg tablet,delayed release 40 mg PO DAILY stomach 02/12/21 [History Last Taken Unknown] psyllium 1 packet PO DAILY constipation 02/12/21 [History Last Taken Unknown] diphenhydramine 25 mg-acetaminophen 500 mg tablet (Tylenol PM Extra Strength) 1,000 tab PO QHS PRN PRN Sleep 02/13/21 [History Last Taken Unknown] levalbuterol tartrate 45 mcg/actuation aerosol inhaler 2 puff inhalation Q4H PRN Wheezing 03/21/21 [History Last Taken Unknown] lidocaine 5 % topical patch 1 patch topical DAILY #1 ea 11/24/21 [Rx Last Taken Unknown] gabapentin 300 mg capsule 300 mg PO BID nerve 12/09/21 [History Last Taken 03/15/22] fluticasone fur. 200 mcg-umeclid 62.5 mcg-vilant 25 mcg inhalat.powder (Trelegy Ellipta) 1 inh inhalation DAILY #60 ea 01/12/22 [Rx Last Taken Unknown] Lactobacillus acidophilus 20 billion cell capsule (Florajen Acidophilus) 10 mg PO DAILY 02/13/22 [History Last Taken Unknown] calcium carb-vit B1-ulttxiopz-jsmp 333 mg-200 unit-133 mg-5 mg tablet 1 tab PO DAILY 02/13/22 [History Last Taken Unknown] potassium chloride 20 mEq tablet,extended release 20 meq PO DAILY 02/13/22 [Hi story Last Taken Unknown] clopidogrel 75 mg tablet 75 mg PO DAILY #90 tabs 03/15/22 [Rx Last Taken Unknown] hydrocodone-acetaminophen 5-325mg 5mg-325mg 1 tab PO Q4H PRN pain 5 days #20 tabs 03/24/22 [Rx Last Taken Unknown] Allergy/AdvReac Type Severity Reaction Status Date / Time amlodipine Allergy Unknown Verified 03/24/22 19:26 clonidine Allergy Unknown Verified 03/24/22 19:26 adhesive AdvReac Rash Verified 03/24/22 19:26 codeine AdvReac Nausea Verified 03/24/22 19:26 fentanyl AdvReac Other Verified 03/24/22 19:27 Family History Mother Heart disease Hypertension Diabetes Sister Hypertension Brother Hypertension Sister Hypertension Cervical cancer Brother Pancreatic cancer Surgical History H/O colostomy H/O: History of hernia repair History of spinal surgery Social History household members: spouse housing: house Smoking Status: Current every day smoker tobacco type: cigarettes Electronic Cigarette Use: not used second hand exposure: Yes alcohol intake: current alcohol intake frequency: a few times a week substance use type: does not use caffeine: Yes what type of physical activity do you participate in: bicycling frequency: 1-2 times per week EXAM Physical Exam Narrative Exam Narrative: C7-year-old female no acute distress vital signs stable afebrile. H EENT exam unremarkable. Lungs are clear. Heart regular rhythm. Abdomen soft nontender. Moving all 4 extremities. Both feet are warm to the touch. He is able wiggle her toes. I cannot palpate either DP pulse on the nurse try to Doppler those. There is no acute ischemic changes. The feet are cold. There is no change in color. Neurologically she is awake and alert. Const Vital Signs: 03/24/22 19:23 03/24/22 19:42 Temperature 98.9 F Temperature Source Temporal Pulse Rate 103 H Respiratory Rate 15 Respiratory Effort Normal Non-Labored Respiratory Pattern Normal Blood Pressure 140/95 H Blood Pressure Mean 110 Pulse Ox 95 Oxygen Delivery Method Room Air Positive well nourished and well developed; Negative for cachectic, contractures or unkempt General Appearance ED: well developed; Negative for unkempt, cachectic or contra ctures Nutritional Appearance: Negative for cachectic HEENT Reports moist mucous membranes Eyes PERRL Neck full ROM and no lymphadenopathy Resp normal respiratory effort and clear to auscultation bilaterally Cardio regular rate, regular rhythm, S1 normal heart sound and S2 normal heart sound GI non-tender, non-distended and no masses Inspection: Negative for abdominal distention Auscultation: normoactive bowel sounds Palpation: soft; Negative for tender or guarding Back/Spine no CVA tenderness Extremity full ROM; Negative for normal to inspection Extremity Narrative: Nonpalpable DP pulses. Both feet warm to touch. Normal motor strength. Calves are nontender. No edema. No cords. Neuro oriented x3 Sensorium / Orientation: alert, oriented to person, oriented to place and oriented to time; Negative for orientation impaired, confused, lethargic or stuporous Motor Exam: strength 5/5 throughout Psych mental status grossly normal Appearance: Negative for unkempt Attitude: No agitated Mood & Affect: Negative for anxious Skin Lesions: No no lesions Rashes: No no rashes Trauma: Negative for abrasion MDM MDM MDM Narrative Medical decision making narrative: Patient with no claudication and bilateral stenting. Complaining of claudication slightly increased pain and left foot numbness. CAT scan with runoff to evaluate for for arterial circulation lower extremities to be obtained with screening labs. If exam patient doing well at 10:55 PM. We went over test results specifically her CTA of her lower extremities. She has a follow-up appointment with Dr. Velez's office on Sunday. She will continue her Plavix. She will be written for limited Garrison for pain. She knows return if worse. Lab Data Attestation: I reviewed the patient's lab results. Lab results narrative: CBC White count 9. H&H 13 and 38. Electrolytes show sodium 127. History of mild hyponatremia. Gap of 5. Normal BUN and creatinine. Glucose of 107. Labs: Laboratory Results - last 24 hr 03/24/22 03/24/22 20:20 20:20 WBC 9.5 RBC 4.11 L Hgb 13.0 Hct 38.8 MCV 94.4 MCH 31.6 MCHC 33.5 RDW Std Deviation 44.2 H RDW Coeff of Renea 12.7 Plt Count 402 MPV 9.1 Sodium 127 L Potassium 4.1 Chloride 96 L Carbon Dioxide 26.0 Anion Gap 5 BUN 12 Creatinine 0.79 Estim Creat Clear Calc 59.81 Est GFR (MDRD) Af Amer 93 Est GFR (MDRD) Non-Af 77 BUN/Creatinine Ratio 15.2 Glucose 107 H Calcium 8.7 Radiography Diagnostic Testing: Clinical Impression(s) from Imaging Studies Abdomen/Pelvis CTA 03/24/22 19:46 IMPRESSION: 1. Scattered atherosclerotic changes of the lower abdominal aorta without dissection or aneurysm. 2. 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 3. Right external iliac stent. 4. Occlusion of the right SFA. The popliteal reconstitutes below Perez''s canal. Normal calf vessels. 5. Occlusion of the left internal iliac artery. 6. Mild stenosis of the proximal left SFA with occlusion at its midpoint. The popliteal reconstitutes below Perez''s canal. Normal left calf vessels. 7. Ventral hernia repair. 8. Right popliteal cyst. Electronically Signed: Alex Hodge DO at 21:40 EDT Reading Location ID and State: [address] [place] [address] Tel [phone], Service support , Discharge Plan Triage Chief Complaint: Other, Pain/Inj ED Provider: Missael Jacobs Dx/Rx/DC Orders Clinical Impression: PAOD (peripheral arterial occlusive disease) Instructions: ED Peripheral Artery Disease (PAD) Prescriptions: New hydrocodone-acetaminophen 5-325 mg tablet 1 tab PO Q4H PRN (Reason: pain) 5 Days Qty: 20 0RF No Action levalbuterol tartrate 45 mcg/actuation HFA aerosol inhaler 2 puff inhalation Q4H PRN (Reason: Wheezing) Label Comments: INHALE 1 TO 2 PUFFS BY MOUTH INSTRUCTED EVERY 4 HOURS NEEDED Trelegy Ellipta 200-62.5-25 mcg blister with device 1 inh inhalation DAILY Qty: 60 6RF Florajen Acidophilus 20 billion cell capsule 10 mg PO DAILY potassium chloride 20 mEq tablet extended release 20 meq PO DAILY calcium carb-D3-mag [id number] yl-ohzn-bp-mg tablet 1 tab PO DAILY Rx Instructions: administer with a meal tramadol 50 MG tablet 50 mg PO TID Label Comments: pain/sleep carvedilol 25 MG tablet 25 mg PO BID Label Comments: BP atorvastatin 20 MG tablet 20 mg PO QHS Label Comments: cholesterol spironolactone 25 MG tablet 25 mg PO QHS levalbuterol HCl 1.25 mg/3 mL solution for nebulization 1 inh inhalation Q6H PRN PRN (Reason: Sob &/Or Wheezing) alprazolam 0.5 mg tablet 0.5 mg PO TID PRN PRN (Reason: Anxiety) psyllium Packet 1 packet PO DAILY pantoprazole 40 mg Tablet,Delayed Release (Dr/Ec) 40 mg PO DAILY diphenhydramine-acetaminophen [Tylenol PM Extra Strength] 25-500 mg Tablet 1,000 tab PO QHS PRN PRN (Reason: Sleep) gabapentin 300 mg capsule 300 mg PO BID Label Comments: TAKE 2 CAPSULES BY MOUTH DAILY AT BEDTIME FOR 180 DAYS. lidocaine 5 % adhesive patch,medicated 1 patch topical DAILY Qty: 1 0RF Rx Instructions: leave on most painful area for up to 12 hrs clopidogrel 75 mg tablet 75 mg PO DAILY Qty: 90 0RF Primary Care Provider: Nate Gray Referrals: Nate Gray MD [Primary Care Provider] - Activity Restrictions/Additional Instructions: Follow-up with your appointment with Dr. Dk Amato's office on Sunday. Make sure they know you were seen in the emergency department and they can check your CAT scan results of the blood flow to your legs. You may need further ultrasound testing of the blood flow of your legs. Continue your Plavix. Garrison for pain. You absolutely need to stop smoking. It will only make this worse if you continue to smoke. Return if severe leg pain that you are unable to control. Take it easy at home this weekend. The more you walk the more discomfort in your legs you will have. Disposition Disposition: Home, Self Care
[2022-03-24 20:25] LABS: Hematocrit 38.8 % (37-47); Mean Corp Hgb Conc 33.5 g/dL (32-36); Mean Corpuscular Hgb 31.6 pg (27.0-32.0); Mean Corpuscular Volume 94.4 fL (81-99); Mean Platelet Vol. 9.1 fl (6.2-12.0); Platelet Count 402 K/mm3 (150-450); RBC Distribution Width CV 12.7 % (11.6-14.6); RBC Distribution Width SD 44.2 fl (35.1-43.9); Red Blood Count 4.11 M/mm3 (4.2-5.4); White Blood Count 9.5 K/mm3 (4.4-11.0)
--- NOTE | 2022-03-24 20:27 | NURSING ---
Doppler pedal pulses right dorsal pedal obtain, left posterior tibial obtained MD updated.
[2022-03-24 20:42] LABS: Anion Gap 5 (5-15); BUN 12 mg/dL (7-18); BUN/Creat Ratio 15.2 RATIO (10-20); Calcium,Total 8.7 mg/dL (8.5-10.1); Chloride 96 mmol/L (98-107); Creatinine, Serum 0.79 mg/dL (0.55-1.02); EST Glomerular Filtration Rate 77 mL/min (>60); Est Glom Filt Rate - Afr Amer 93 mL/min (>60); Estimated Creatinine Clearance 59.81 ml/min; Glucose 107 mg/dL (74-106); Potassium 4.1 mmol/L (3.5-5.1); Sodium Level 127 mmol/L (136-145)
[2022-03-24] MEDS: Morphine 4 MG/ML Syringe IV (21:16)
[2022-03-24] MEDS: Ondansetron 4 MG/2 ML Vial IV (21:17)
[2022-03-24] MEDS: HYDROcodone Bitartrate/Apap 5/325 Tablet PO (23:05)
[2022-03-24 23:06] VITALS: BP 135/75; PULSE 88; RESP 18; O2SAT 95
== END 2022-03-24 23:12 | disposition home or self-care (01) ==
PROVIDERS: Emergency Provider Emergency Medicine; PCP Internal Medicine; Visit Provider Emergency Medicine
DX: I73.9 Peripheral vascular disease, unspecified (principal); J44.9 Chronic obstructive pulmonary disease, unspecified; F17.210 Nicotine dependence, cigarettes, uncomplicated; I10 Essential (primary) hypertension; E78.5 Hyperlipidemia, unspecified; K21.9 Gastro-esophageal reflux disease without esophagitis; Z79.899 Other long term (current) drug therapy; Z79.02 Long term (current) use of antithrombotics/antiplatelets
CPT/HCPCS: 75635; 80048; 85027; 96374; 96375; 99284; Q9967; A4216; J2405

== ENCOUNTER → 2022-04-04 | Outpatient (CLI) | payer MEDICARE, SELFPAY ==
--- NOTE | 2022-04-04 13:47 | ADUL_ITS ---
Reason For Study: Right iliac artery stent Right Velocities Ext. Iliac Artery, dist = 68.5 cm./sec. Common Femoral Artery, mid = 122.6 cm./sec. Supf Femoral Artery, prox = 173.2 cm./sec. Unable to obtain flow in the Mid SFA. Supf Femoral Artery, dist. = 65.0 cm./sec. Profunda Femoral Artery = 149.8 cm./sec. Popliteal Artery, mid = 38.8 cm./sec. Ant. Tibial Artery, prox = 32.7 cm./sec. Ant. Tibial Artery, mid = 40.0 cm./sec. Ant. Tibial Artery, dist = 30.2 cm./sec. Post. Tibial Artery, prox = 46.2 cm./sec. Post. Tibial Artery, mid = 57.2 cm./sec. Post. Tibial Artery, dist = 41.3 cm./sec. Peroneal Artery, prox = 20.4 cm./sec. Peroneal Artery, mid = 17.9 cm./sec. Peroneal Artery,dist = 17.9 cm./sec. Hypoechoic area behind the knee measuring 2.4 x 4.36 cm. Area appears to be nonvascular. Procedure The exam was diagnostic. Exam performed in department. VL/US Art Duplex Unilat Lower Ext Interpretation Summary Arterial flow is noted in the right external iliac artery and is constant throu gh the right common femoral artery, and proximal right superficial femoral artery and profundofemor al artery. What can be visualized of the right external iliac artery stent appears to be p atent and of uniform velocity throughout. The right mid superficial femoral artery is occluded consistent with her arteri ogram of March 15, 2022 Flow distal to the occluded superficial femoral artery is present but at antici pated diminished velocities. Right popliteal space 2.4 x 4.36 cm nonvascular cystic structure consistent wit h a Hirsch's cyst. Clinical correlation would be appropriate. Ordering Physician: Jen Pinto Performed By: Castro Leonard RVT
== END | disposition home or self-care (01) ==
LOC: CVS 13:46
PROVIDERS: PCP Internal Medicine; Referring Provider Physician Assistant; Visit Provider Physician Assistant
DX: Z95.828 Presence of other vascular implants and grafts (principal); I77.1 Stricture of artery
CPT/HCPCS: 93926

== ENCOUNTER 2022-04-05 17:43 | Emergency (ER) | payer MEDICARE, SELFPAY ==
[2022-04-05 17:44] VITALS: BP 173/98; PULSE 106; RESP 16; TEMP 37.1; O2SAT 98; BMI 29.5
[2022-04-05] MEDS: HYDROcodone Bitartrate/Apap 5/325 Tablet PO (18:20)
--- NOTE | 2022-04-05 18:55 | EDS_ITS ---
HPI History of Present Illness Chief Complaint: Lower Extremity Injury Narrative Narrative: 67-year-old female with history of peripheral artery disease running with left leg pain. She was previously seen in the ER and had a CTA with runoff which showed vaso-occlusive disease. She follow-up Dr. Gaston who did perform stenting however the patient continues to have bilateral leg pain which is worse with walking. She states that she followed up in the office on 03/28/2022 after receiving Chandler from the ER. She states he was given more medication and sent to her primary care doctor to manage her chronic pain. She denies any new injury. Patient states that she currently is receiving tramadol from her primary care doctor. She was told by her primary care doctor which she will see tomorrow that she needs a referral to pain management. [facility] Medical History Alcohol abuse Anxiety Asthma Closed fracture of fifth metatarsal bone of left foot Clostridium difficile colitis COPD (chronic obstructive pulmonary disease) Diverticulitis of colon without hemorrhage Duodenal ulcer Essential hypertension GERD (gastroesophageal reflux disease) H/O spleen injury History of pelvic hematoma Hyperlipemia Hypertension Impaired fasting glucose Incisional hernia without mention of obstruction or gangrene Injury, spleen, with capsular tears Osteoarthritis Pneumohemothorax, traumatic Pseudocyst of pancreas S/P arteriogram of extremity Spleen hematoma Tobacco abuse Home Medications tramadol 50 mg tablet 50 mg PO TID pain/sleep 07/26/15 [History Last Taken 12/30/19 15:00] atorvastatin 20 mg tablet 20 mg PO QHS cholesterol 05/28/19 [History Last Taken 12/29/19 21:00] carvedilol 25 mg tablet 25 mg PO BID BP 05/28/19 [History Last Taken 03/15/22] spironolactone 25 mg tablet 25 mg PO QHS BP 05/28/19 [History Last Taken 12/29/19 21:00] alprazolam 0.5 mg tablet 0.5 mg PO TID PRN PRN Anxiety 02/12/21 [History Last Taken 03/15/22] pantoprazole 40 mg tablet,delayed release 40 mg PO DAILY stomach 02/12/21 [History Last Taken Unknown] psyllium 1 packet PO DAILY constipation 02/12/21 [History Last Taken Unknown] diphenhydramine 25 mg-acetaminophen 500 mg tablet (Tylenol PM Extra Strength) 1,000 tab PO QHS PRN PRN Sleep 02/13/21 [History Last Taken Unknown] lidocaine 5 % topical patch 1 patch topical DAILY #1 ea 11/24/21 [Rx Last Taken Unknown] gabapentin 300 mg capsule 300 mg PO BID nerve 12/09/21 [History Last Taken 03/15/22] fluticasone fur. 200 mcg-umeclid 62.5 mcg-vilant 25 mcg inhalat.powder (Trelegy Ellipta) 1 inh inhalation DAILY #60 ea 01/12/22 [Rx Last Taken Unknown] Lactobacillus acidophilus 20 billion cell capsule (Florajen Acidophilus) 10 mg PO DAILY 02/13/22 [History Last Taken Unknown] calcium carb-vit V3-lcwbjuelv-twdi 333 mg-200 unit-133 mg-5 mg tablet 1 tab PO DAILY 02/13/22 [History Last Taken Unknown] potassium chloride 20 mEq tablet,extended release 20 meq PO DAILY 02/13/22 [History Last Taken Unknown] clopidogrel 75 mg tablet 75 mg PO DAILY #90 tabs 03/15/22 [Rx Last Taken Unknown] Allergy/AdvReac Type Severity Reaction Status Date / Time amlodipine Allergy Unknown Verified 04/05/22 17:44 clonidine Allergy Unknown Verified 04/05/22 17:44 adhesive AdvReac Rash Verified 04/05/22 17:44 codeine AdvReac Nausea Verified 04/05/22 17:44 fentanyl AdvReac Other Verified 04/05/22 17:44 Family History Mother Heart disease Hypertension Diabetes Sister Hypertension Brother Hypertension Sister Hypertension Cervical cancer Brother Pancreatic cancer Surgical History H/O colostomy H/O: History of hernia repair History of spinal surgery Social History household members: spouse housing: house Smoking Status: Current every day smoker tobacco type: cigarettes Electronic Cigarette Use: not used second hand exposure: Yes alcohol intake: current alcohol intake frequency: a few times a week substance use type: does not use caffeine: Yes what type of physical activity do you participate in: bicycling frequency: 1-2 times per week ROS ROS ED Constitutional Constitutional ED: Denies chills or fever(s) Eyes Eyes: Denies change in vision or diplopia ENT ENT ED: Denies rhinorrhea or sore throat Cardiovascular Cardiovascular: Denies chest pain or palpitations Respiratory/Chest Respiratory/Chest: Denies cough or dyspnea Gastrointestinal Gastrointestinal: Denies abdominal pain or constipation Genitourinary Genitourinary ED: Denies dysuria or hematuria Musculoskeletal Musculoskeletal: Reports other Details: Left leg pain ; Denies arthralgias or back pain Integumentary Denies abscess EXAM Physical Exam Const Vital Signs: 04/05/22 17:44 Temperature 98.7 F Temperature Source Temporal Pulse Rate 106 H Respiratory Rate 16 Blood Pressure 173/98 H Blood Pressure Mean 123 Pulse Ox 98 Oxygen Delivery Method Room Air Positive well nourished General Appearance ED: NAD HEENT Reports moist mucous membranes Chest Wall inspection of chest normal and palpation of chest normal Resp normal respiratory effort Cardio regular rate and regular rhythm GI non-tender and non-distended Extremity Extremity Narrative: Bilateral lower extremities are pink and warm. Pedal pulses are palpable. Brisk cap refill to all 10 toes. Neuro oriented x3 and CN's II-XII intact bilaterally Sensorium / Orientation: alert Psych mental status grossly normal Skin no wounds Lesions: no lesions Rashes: no rashes MDM MDM MDM Narrative Medical decision making narrative: Patient presenting for pain in her lower extremity on the left. She states this began issue since prior to her surgery and it continues after her surgery. She states that Dr. Amato referred her to the emergency room tonight by way of his nurse practitioner. She states she is not sure why. She has a primary care doctor who is trying to manage her pain with tramadol. She states she did call him to ask if she could double her pain medication and he said no he wanted to have her referred to pain management. I spoke with Dr. Amato who stated that he did not refer her to the emergency room and has not heard of any calls from the patient. He did not believe she needed any emergent imaging and she had already an arterial duplex after her last office visit. He agreed that the patient probably had nerve damage and need to follow-up with pain management. Patient was given 1 Chandler in the emergency room. I have reviewed her [facility] report and she has tramadol for home. I will let her primary care physician manage her pain. Impression: 1. Peripheral arterial disease 2. Chronic pain Lab Data Attestation: I reviewed the patient's lab results. Discharge Plan Triage Chief Complaint: Lower Extremity Injury ED Provider: Ebenezer Roberts Dx/Rx/DC Orders Instructions: PAD Dc Prescriptions: No Action Dennysledagmar Ellipta 200-62.5-25 mcg blister with device 1 inh inhalation DAILY Qty: 60 6RF Florajen Acidophilus 20 billion cell capsule 10 mg PO DAILY potassium chloride 20 mEq tablet extended release 20 meq PO DAILY calcium carb-D3-mag [id number] ex-trnk-gm-mg tablet 1 tab PO DAILY Rx Instructions: administer with a meal tramadol 50 MG tablet 50 mg PO TID Label Comments: pain/sleep carvedilol 25 MG tablet 25 mg PO BID Label Comments: BP atorvastatin 20 MG tablet 20 mg PO QHS Label Comments: cholesterol spironolactone 25 MG tablet 25 mg PO QHS alprazolam 0.5 mg tablet 0.5 mg PO TID PRN PRN (Reason: Anxiety) psyllium Packet 1 packet PO DAILY pantoprazole 40 mg Tablet,Delayed Release (Dr/Ec) 40 mg PO DAILY diphenhydramine-acetaminophen [Tylenol PM Extra Strength] 25-500 mg Tablet 1,000 tab PO QHS PRN PRN (Reason: Sleep) gabapentin 300 mg capsule 300 mg PO BID Label Comments: TAKE 2 CAPSULES BY MOUTH DAILY AT BEDTIME FOR 180 DAYS. lidocaine 5 % adhesive patch,medicated 1 patch topical DAILY Qty: 1 0RF Rx Instructions: leave on most painful area for up to 12 hrs clopidogrel 75 mg tablet 75 mg PO DAILY Qty: 90 0RF Primary Care Provider: Nate Gray Referrals: Dk Amato MD [STAFF PHYSICIAN] - As Needed Nate Gray MD [Primary Care Provider] - Disposition Disposition: Home, Self Care
== END 2022-04-05 19:24 | disposition home or self-care (01) ==
PROVIDERS: Emergency Provider Student in an Organized Health Care Education/Training Program; PCP Internal Medicine; Visit Provider Student in an Organized Health Care Education/Training Program
DX: I73.9 Peripheral vascular disease, unspecified (principal); J44.9 Chronic obstructive pulmonary disease, unspecified; M79.605 Pain in left leg; G89.29 Other chronic pain; F17.210 Nicotine dependence, cigarettes, uncomplicated; E78.5 Hyperlipidemia, unspecified; I10 Essential (primary) hypertension; K21.9 Gastro-esophageal reflux disease without esophagitis; Z79.899 Other long term (current) drug therapy
CPT/HCPCS: 99283

== ENCOUNTER → 2022-04-06 | Outpatient (CLI) | payer MEDICARE, SELFPAY ==
--- NOTE | 2022-04-06 14:53 | ADUL_ITS ---
Reason For Study: claudication Left Velocities Ext Iliac Artery, dist = 97.2 cm./sec. Common Femoral Artery, mid = 85.2 cm./sec. Supf. Femoral Artery, prox = 499.6 cm./sec. Supf. Femoral Artery, mid = 105.2 cm./sec. Supf. Femoral Artery, dist = 25.7 cm./sec. Short segment of dist SFA is occluded. Branch feeding SFA reconstitues flow. Profunda Femoral Artery = 44.6 cm./sec. Popliteal Artery, mid = 32.5 cm./sec. Ant.Tibial Artery, prox = 27.0 cm./sec. Ant Tibial Artery, mid = 13.6 cm./sec. Ant. Tibial Artery, distal = 9.7 cm./sec. Post. Tibial Artery, prox = 24.8 cm./sec. Post Tibial Artery, mid = 25.9 cm./sec. Post Tibial Artery, dist. = 25.9 cm./sec. Peroneal Artery, prox = 20.4 cm./sec. Peroneal Artery, mid = 17.1 cm./sec. Peroneal Artery,dist. = 16.0 cm./sec. Prelim called to Diana. VL/US Art Duplex Unilat Lower Ext Interpretation Summary Patent flow noted in the left distal external iliac artery and common femoral a rtery. Greater than 50% stenosis of the proximal left superficial femoral artery and o cclusion of the distal left superficial femoral artery consistent with the patient's recent art eriographic imaging Patent left profundofemoral artery although with a suppressed waveform Diminished flow noted in the left popliteal and anterior tibial and posterior t ibial and peroneal arteries. Ordering Physician: Dk Amato Performed By: Castro Leonard RVT
== END | disposition home or self-care (01) ==
PROVIDERS: PCP Internal Medicine; Visit Provider Surgery
DX: I73.9 Peripheral vascular disease, unspecified (principal)
CPT/HCPCS: 93926

== ENCOUNTER 2022-05-30 18:56 | Emergency (ER) | payer MEDICARE, SELFPAY ==
[2022-05-30 18:57] VITALS: BP 174/92; PULSE 87; RESP 16; TEMP 35.8; O2SAT 96; BMI 32.8
--- NOTE | 2022-05-30 21:04 | ED.VIS.LOWEX ---
HPI History of Present Illness Chief Complaint: Edema Detail of Chief Complaint: Pain to both lower extremities for several months Informant: patient Narrative Narrative: Patient presents the emergency department with complaint of pain in both lower extremities for several months. Patient complains of pain with ambulation that then gets better with rest and sitting. Patient has noted increased swelling of both lower extremities. Patient tells me that she had a stent placed in her right external iliac artery by Dr. Dk Amato in March. Patient also had what sounds like a loon angioplasty of the left lower extremity. Patient has been seen by Dr. Marks and has had arterial studies and ultrasound to rule out DVT. Patient recently was referred to a vascular surgeon however he is currently out of town and will be able to see her until June. Patient has been taking tramadol and gabapentin for pain and not get much relief. [facility] Medical History (Updated 05/30/22 @ 22:[address] Maria E Stewart, DO) Alcohol abuse Anxiety Asthma Closed fracture of fifth metatarsal bone of left foot Clostridium difficile colitis COPD (chronic obstructive pulmonary disease) Diverticulitis of colon without hemorrhage Duodenal ulcer Essential hypertension GERD (gastroesophageal reflux disease) H/O spleen injury History of pelvic hematoma Hyperlipemia Hypertension Impaired fasting glucose Incisional hernia without mention of obstruction or gangrene Injury, spleen, with capsular tears Osteoarthritis Pneumohemothorax, traumatic Pseudocyst of pancreas S/P arteriogram of extremity Spleen hematoma Tobacco abuse Home Medications tramadol 50 mg tablet 50 mg PO TID pain/sleep 07/26/15 [History Last Taken 12/30/19 15:00] atorvastatin 20 mg tablet 20 mg PO QHS cholesterol 05/28/19 [History Last Taken 12/29/19 21:00] carvedilol 25 mg tablet 25 mg PO BID BP 05/28/19 [History Last Taken 03/15/22] spironolactone 25 mg tablet 25 mg PO QHS BP 05/28/19 [History Last Taken 12/29/19 21:00] alprazolam 0.5 mg tablet 0.5 mg PO TID PRN PRN Anxiety 02/12/21 [History Last Taken 03/15/22] pantoprazole 40 mg tablet,delayed release 40 mg PO DAILY stomach 02/12/21 [History Last Taken Unknown] psyllium 1 packet PO DAILY constipation 02/12/21 [History Last Taken Unknown] diphenhydramine 25 mg-acetaminophen 500 mg tablet (Tylenol PM Extra Strength) 1,000 tab PO QHS PRN PRN Sleep 02/13/21 [History Last Taken Unknown] lidocaine 5 % topical patch 1 patch topical DAILY #1 ea 11/24/21 [Rx Last Taken Unknown] gabapentin 300 mg capsule 300 mg PO BID nerve 12/09/21 [History Last Taken 03/15/22] fluticasone fur. 200 mcg-umeclid 62.5 mcg-vilant 25 mcg inhalat.powder (Trelegy Ellipta) 1 inh inhalation DAILY #60 ea 01/12/22 [Rx Last Taken Unknown] Lactobacillus acidophilus 20 billion cell capsule (Florajen Acidophilus) 10 mg PO DAILY 02/13/22 [History Last Taken Unknown] calcium carb-vit Q0-[id number]-pkpe 333 mg-200 unit-133 mg-5 mg tablet 1 tab PO DAILY 02/13/22 [History Last Taken Unknown] potassium chloride 20 mEq tablet,extended release 20 meq PO DAILY 02/13/22 [History Last Taken Unknown] clopidogrel 75 mg tablet 75 mg PO DAILY #90 tabs 03/15/22 [Rx Last Taken Unknown] pentoxifylline 400 mg tablet,extended release 400 mg PO TID #270 tabs 05/01/22 [Rx Last Taken Unknown] oxycodone-acetaminophen 5 mg-325 mg tablet 1 tab PO Q6H PRN PRN Pain 3 days #15 TABLETS 05/30/22 [Rx Last Taken Unknown] Allergy/AdvReac Type Severity Reaction Status Date / Time amlodipine Allergy Unknown Verified 05/30/22 18:57 clonidine Allergy Unknown Verified 05/30/22 18:57 adhesive AdvReac Rash Verified 05/30/22 18:57 codeine AdvReac Nausea Verified 05/30/22 18:57 fentanyl AdvReac Other Verified 05/30/22 18:57 Family History Mother Heart disease Hypertension Diabetes Sister Hypertension Brother Hypertension Sister Hypertension Cervical cancer Brother Pancreatic cancer Surgical History H/O colostomy H/O: History of hernia repair History of spinal surgery Social History household members: spouse housing: house Smoking Status: Current every day smoker tobacco type: cigarettes Electronic Cigarette Use: not used second hand exposure: Yes alcohol intake: current alcohol intake frequency: a few times a week substance use type: does not use caffeine: Yes what type of physical activity do you participate in: bicycling frequency: 1-2 times per week ROS ROS ED Constitutional Constitutional ED: Reports systems reviewed and no addt'l complaints, except as documented; Denies body ache(s), change in weight or chills Eyes Eyes: Denies acute decrease in peripheral vision, change in vision, double vision or loss of vision ENT ENT ED: Reports none; Denies ear pain, lip swelling, loss taste/smell, neck pain, otalgia or sore throat Cardiovascular Cardiovascular: Reports none; Denies abdominal pain, chest pain with activity, leg edema, lightheadedness, palpitations, rapid heart rate or syncope Respiratory/Chest Respiratory/Chest: Reports none; Denies change in mental status, dry cough, dyspnea, hemoptysis, shortness of breath at rest or shortness of breath with exertion Gastrointestinal Gastrointestinal: Reports none; Denies abdominal pain, change in stool character, diarrhea, hematemesis, hematochezia, melena, rectal bleeding or vomiting Genitourinary Genitourinary ED: Reports none; Denies abdominal discomfort, anuria, dysuria, genital pain or polyuria Musculoskeletal Musculoskeletal: Reports none and other Details: Bilateral leg pain ; Denies arthralgias, back pain, difficulty walking, extremity pain, muscle weakness or myalgias Integumentary Reports none; Denies abscess or rash Neurologic Neurologic: Reports none; Denies abnormal gait, confusion, focal weakness, frequent falls, headache(s), loss of vision, numbness, paresthesias, radicular pain, vertigo or weakness Psychiatric Psychiatric: Reports systems reviewed and no addt'l complaints, except as documented and none; Denies behavioral changes, confusion, difficulty concentrating, hallucinations, suicidal ideation, tactile hallucinations or visual hallucinations Endocrine Endocrinology: Denies none, cold intolerance, excessive sweating, fatigue or heat intolerance Hematologic/Lymphatic Hematologic/Lymphatic: Reports none; Denies anemia, easy bleeding or easy bruising Allergic/Immunologic Allergic/Immunologic ED: Denies as per HPI, none, lip swelling, mouth swelling, throat swelling, tongue swelling or hives EXAM Physical Exam Const Vital Signs: 05/30/22 18:57 05/30/22 20:42 Temperature 96.4 F L Temperature Source Temporal Pulse Rate 87 Respiratory Rate 16 Respiratory Effort Normal Non-Labored Blood Pressure 174/92 H Blood Pressure Mean 119 Pulse Ox 96 Oxygen Delivery Method Room Air Positive well nourished and well developed General Appearance ED: well developed and NAD HEENT Reports TM's clear and moist mucous membranes normocephalic and atraumatic; Negative for trauma or tenderness Tympanic Membrane ED: Yes TM's clear Eyes PERRL and EOMs intact bilaterally General Eye ED: Negative for pale conjunctiva or scleral icterus Neck no lymphadenopathy, supple and no JVD General: Negative for tenderness Chest Wall inspection of chest normal and palpation of chest normal Chest: Negative for tenderness Resp normal respiratory effort and clear to auscultation bilaterally Effort and Inspection: Negative for respiratory distress or pain with movement Auscultation: Negative for rhonchi, wheezes or diminished lung sounds Cardio regular rate, regular rhythm, S1 normal heart sound, S2 normal heart sound and no murmurs Peripheral Pulses: pulses 2+ throughout GI normal to inspection, nondistended, normoactive bowel sounds, soft to palpation, non-tender, non-distended and no masses Back/Spine no CVA tenderness and no thoracic nor lumbar tenderness Extremity normal to inspection Extremity Narrative: +1 edema both lower extremities. Patient has diminished dorsal pedal and posterior tibial pulses bilaterally but cap refill is less than 3 seconds bilaterally. Both feet are warm to the touch. General Extremety ED: Yes edema General Extremity: edema Neuro oriented x3, CN's II-XII intact bilaterally, no sensory deficits noted and gait normal Sensorium / Orientation: awake, alert, oriented to person, oriented to place and oriented to time Motor Exam: strength 5/5 throughout and strength abnormal Psych mental status grossly normal Skin no rashes or lesions noted and no wounds MDM MDM MDM Narrative Medical decision making narrative: IV line established on arrival. Lab work-up obtained was unremarkable. Urinalysis was normal. Venous Dopplers were negative for DVT. Patient was medicated Dilaudid and Zofran. She had good pain relief. Chest x-ray obtained was unremarkable. This point etiology of her pain is not clear. She does have some claudication-like symptoms but also some nerve neuropathy type symptoms. She is not complaining of back pain. Patient has had a recent arterial studies and clinically I do not feel she has a vascular emergency. Patient will be given a prescription for Percocet for pain and advised to follow-up with her vascular surgeon as instructed. Patient also to follow-up with her primary care physician as if the etiology of her pain cannot be ascertained may be reasonable to obtain further studies such as possibly nerve conduction studies or MRI of her back. Lab Data Attestation: I reviewed the patient's lab results. Labs: Laboratory Results - last 24 hr 05/30/22 05/30/22 05/30/22 21:14 21:14 21:14 WBC 9.4 RBC 3.85 L Hgb 12.3 Hct 37.1 MCV 96.4 MCH 31.9 MCHC 33.2 RDW Std Deviation 54.4 H RDW Coeff of Renea 15.3 H Plt Count 373 MPV 9.2 Immature Gran % (Auto) 0.400 Neut % (Auto) 57.7 Lymph % (Auto) 29.7 Woodward % (Auto) 10.4 H Eos % (Auto) 1.3 Baso % (Auto) 0.5 Absolute Neuts (auto) 5.4 Absolute Lymphs (auto) 2.79 Nucleated RBC % 0 Sodium 133 L Potassium 4.3 Chloride 100 Carbon Dioxide 27.0 Anion Gap 6 BUN 15 Creatinine 0.80 Estim Creat Clear Calc 79.50 Est GFR (MDRD) Af Amer 93 Est GFR (MDRD) Non-Af 76 BUN/Creatinine Ratio 18.8 Glucose 74 Calcium 9.1 Urine Color Straw Urine Clarity Clear Urine pH 7.0 Ur Specific [place] 1.005 Urine Protein Negative Urine Glucose (UA) Normal Urine Ketones Negative Urine Occult Blood 25 H Urine Nitrite Negative Urine Bilirubin Negative Urine Urobilinogen Normal Ur Leukocyte Esterase Negative Urine RBC 0-5 SEEN Urine WBC 0 SEEN Ur Squamous Epith Cells 0-5 SEEN Urine Bacteria 0 SEEN Urine Mucus 0 SEEN Radiography Diagnostic Testing: Clinical Impression(s) from Imaging Studies Venous Duplex 05/30/22 21:09 IMPRESSION: No evidence of deep venous thrombosis. Complex Hirsch''s cyst in the right popliteal fossa Electronically Signed: Kris Oneill MD at 22:04 EDT , Chest X-Ray 05/30/22 21:18 IMPRESSION: Minimal discoid atelectasis or scarring in the right lower lobe.. Electronically Signed: Kris Oneill MD at 21:53 EDT , 1 view chest x-ray obtained interpreted by myself as no acute disease process. Radiology thought there was minimal discoid atelectasis or scarring the right lower lobe. Discharge Plan Triage Chief Complaint: Edema ED Provider: Maria E Stewart Dx/Rx/DC Orders Clinical Impression: Bilateral leg pain, Peripheral vascular disease Instructions: ED Pain, Acute, Uncertain Cause, ED Peripheral Artery Disease (PAD) Prescriptions: New oxycodone-acetaminophen [oxycodone-acetaminophen] 1 TABLET tablet 1 tab PO Q6H PRN PRN (Reason: Pain) 3 Days Qty: 15 0RF No Action Trelegy Ellipta 200-62.5-25 mcg blister with device 1 inh inhalation DAILY Qty: 60 6RF Florajen Acidophilus 20 billion cell capsule 10 mg PO DAILY potassium chloride 20 mEq tablet extended release 20 meq PO DAILY calcium carb-D3-mag [id number] lh-dmqt-ji-mg tablet 1 tab PO DAILY Rx Instructions: administer with a meal tramadol 50 MG tablet 50 mg PO TID Label Comments: pain/sleep carvedilol 25 MG tablet 25 mg PO BID Label Comments: BP atorvastatin 20 MG tablet 20 mg PO QHS Label Comments: cholesterol spironolactone 25 MG tablet 25 mg PO QHS alprazolam 0.5 mg tablet 0.5 mg PO TID PRN PRN (Reason: Anxiety) psyllium Packet 1 packet PO DAILY pantoprazole 40 mg Tablet,Delayed Release (Dr/Ec) 40 mg PO DAILY diphenhydramine-acetaminophen [Tylenol PM Extra Strength] 25-500 mg Tablet 1,000 tab PO QHS PRN PRN (Reason: Sleep) gabapentin 300 mg capsule 300 mg PO BID Label Comments: TAKE 2 CAPSULES BY MOUTH DAILY AT BEDTIME FOR 180 DAYS. lidocaine 5 % adhesive patch,medicated 1 patch topical DAILY Qty: 1 0RF Rx Instructions: leave on most painful area for up to 12 hrs clopidogrel 75 mg tablet 75 mg PO DAILY Qty: 90 0RF pentoxifylline 400 mg tablet extended release 400 mg PO TID Qty: 270 1RF Rx Instructions: must administer with a meal/food Primary Care Provider: Nate Gray Referrals: Nate Gray MD [Primary Care Provider] - Disposition Disposition: Home, Self Care
--- NOTE | 2022-05-30 21:09 | US_ITS ---
STUDY: VENOUS DOPPLER ULTRASOUND - BILATERAL LOWER EXTREMITIES REASON FOR EXAM: Female, 67 years old. BILATERAL PAIN/SWELLING TECHNIQUE: Ultrasound evaluation of the deep vein system to include batista-scale imaging and compression was performed. Batista-scale imaging and Doppler sonographic evaluation, including duplex spectral analysis and qualitative color flow sonography, was performed. COMPARISON: None. FINDINGS: RIGHT LEG Common Femoral Vein: Normal compression, spontaneity and augmentation. Normal color Doppler. Common Femoral Vein/Greater Saphenous Junction: Normal compression, spontaneity and augmentation. Normal color Doppler. Deep Femoral Vein: Normal compression, spontaneity and augmentation. Normal color Doppler. Femoral Proximal: Normal compression, spontaneity and augmentation. Normal color Doppler. Femoral Middle: Normal compression, spontaneity and augmentation. Normal color Doppler. Femoral Distal: Normal compression, spontaneity and augmentation. Normal color Doppler. Popliteal Vein: Normal compression, spontaneity and augmentation. Normal color Doppler. There is a complex cyst in the popliteal fossa measuring 5.9 x 4.2 x 1.8 cm Posterior Tibial Vein: Normal compression, spontaneity and augmentation. Normal color Doppler. Peroneal Vein: Normal compression, spontaneity and augmentation. Normal color Doppler. LEFT LEG Common Femoral Vein: Normal compression, spontaneity and augmentation. Normal color Doppler. Common Femoral Vein/Greater Saphenous Junction: Normal compression, spontaneity and augmentation. Normal color Doppler. Deep Femoral Vein: Normal compression, spontaneity and augmentation. Normal color Doppler. Femoral Proximal: Normal compression, spontaneity and augmentation. Normal color Doppler. Femoral Middle: Normal compression, spontaneity and augmentation. Normal color Doppler. Femoral Distal: Normal compression, spontaneity and augmentation. Normal color Doppler. Popliteal Vein: Normal compression, spontaneity and augmentation. Normal color Doppler. Posterior Tibial Vein: Normal compression, spontaneity and augmentation. Normal color Doppler. Peroneal Vein: Normal compression, spontaneity and augmentation. Normal color Doppler. US/Venous Duplex Imag/Alexandr Extrem IMPRESSION: No evidence of deep venous thrombosis. Complex Hirsch''s cyst in the right popliteal fossa Electronically Signed: Kris Oneill MD at 22:04 EDT ,
--- NOTE | 2022-05-30 21:18 | RAD_ITS ---
STUDY: X-RAY CHEST REASON FOR EXAM: Female, 67 years old. dyspnea TECHNIQUE: AP portable COMPARISON: 11/24/2021 FINDINGS: Minimal discoid atelectasis or scarring at the right base. There is no demonstrated pleural abnormality. Normal size heart. Normal mediastinum and trisha. Normal visualized pulmonary arteries. Normal visualized aortic arch and descending thoracic aorta. Normal visualized thoracic spine. Normal visualized clavicles, and shoulders. Multiple old healed left rib fractures. Postsurgical changes in the upper abdomen. RAD/Chest 1 View (Portable) IMPRESSION: Minimal discoid atelectasis or scarring in the right lower lobe.. Electronically Signed: Kris Oneill MD at 21:53 EDT ,
[2022-05-30 21:29] LABS: Bacteria 0 SEEN /hpf (None Seen); Mucous, Urine 0 SEEN /hpf (<or=2+)
[2022-05-30 21:30] LABS: Absolute Lymphocyte Count 2.79 X10^3/uL (0.83-4.51); Absolute Neutrophil Count 5.4 X10^3/uL (2.0-7.7); Basophil# 0.05 X10^3/uL; Basophil% 0.5 % (0-1); Eosinophil# 0.12 X10^3/uL; Eosinophils% 1.3 % (0-5); Hematocrit 37.1 % (37-47); Hemoglobin 12.3 g/dL (12.0-15.0); Lymphocyte # 2.79 X10^3/ul (0.83-4.51); Lymphocyte % 29.7 % (19-41); Mean Corp Hgb Conc 33.2 g/dL (32-36); Mean Corpuscular Hgb 31.9 pg (27.0-32.0); Mean Corpuscular Volume 96.4 fL (81-99); Mean Platelet Vol. 9.2 fl (6.2-12.0); Monocyte# 0.98 X10^3/uL; Monocyte% 10.4 % (0-10); NRBC Flagged by Analyzer 0 % (0-5); Neutrophil # 5.41 X10^3/uL (2.7-7.7); Neutrophil % 57.7 % (47-70); Platelet Count 373 K/mm3 (150-450); RBC Distribution Width CV 15.3 % (11.6-14.6); RBC Distribution Width SD 54.4 fl (35.1-43.9); Red Blood Count 3.85 M/mm3 (4.2-5.4); White Blood Count 9.4 K/mm3 (4.4-11.0)
[2022-05-30 21:35] LABS: Color, Urine Straw (Yellow); Glucose, Dipstick Normal (Normal); Ketone-Dipstick Negative (Negative); Leukocyte Esterase-Dipstick Negative /ul (Negative); Nitrite-Dipstick Negative (Negative); Occult Blood-Urine 25 /ul (Negative); Protein-Dipstick Negative (Negative); Specific Gravity, Urine 1.005 (1.002-1.030); Urine Bilirubin Dipstick Negative (Negative); Urine Clarity Clear (Clear); Urine Urobilinogen Normal (Normal)
[2022-05-30 21:43] LABS: Anion Gap 6 (5-15); BUN 15 mg/dL (7-18); BUN/Creat Ratio 18.8 RATIO (10-20); Calcium,Total 9.1 mg/dL (8.5-10.1); Chloride 100 mmol/L (98-107); EST Glomerular Filtration Rate 76 mL/min (>60); Est Glom Filt Rate - Afr Amer 93 mL/min (>60); Glucose 74 mg/dL (74-106); Potassium 4.3 mmol/L (3.5-5.1); Sodium Level 133 mmol/L (136-145)
[2022-05-30 21:45] LABS: Red Blood Cells-Urine 0-5 SEEN /hpf (0-5); White Blood Cells 0 SEEN /hpf (0-5)
[2022-05-30 21:46] LABS: Squamous Epithelial Cells - UA 0-5 SEEN /hpf (5-10)
[2022-05-30] MEDS: HYDROmorphone 1 MG/ML Syringe IV (22:34)
[2022-05-30] MEDS: Ondansetron 4 MG/2 ML Vial IV (22:34)
[2022-05-30 23:26] VITALS: PULSE 67; RESP 16; O2SAT 96
== END 2022-05-30 23:29 | disposition home or self-care (01) ==
PROVIDERS: Emergency Provider Emergency Medicine; PCP Internal Medicine; Visit Provider Emergency Medicine
DX: M79.604 Pain in right leg (principal); J44.9 Chronic obstructive pulmonary disease, unspecified; I73.9 Peripheral vascular disease, unspecified; M79.605 Pain in left leg; R60.9 Edema, unspecified; I10 Essential (primary) hypertension; F17.210 Nicotine dependence, cigarettes, uncomplicated; E78.5 Hyperlipidemia, unspecified; K21.9 Gastro-esophageal reflux disease without esophagitis; Z79.899 Other long term (current) drug therapy
CPT/HCPCS: 71045; 80048; 81001; 85025; 93970; 96374; 96375; 99283; A4216; J2405

== ENCOUNTER → 2022-06-14 | Outpatient (CLI) | payer MEDICARE, SELFPAY ==
--- NOTE | 2022-06-14 12:39 | ART_ITS ---
Reason For Study: PVD Procedure A bilateral lower extremity continuous wave Doppler with analog waveform analysis,segmental pressures,and ankle brachial indexes without exercise. Left Segmental Pressures Left brachial= 182mmHg. Left thigh = 94mmHg. Left calf = 92mmHg. Left posterior tibial artery = 74mmHg. Left dorsalis pedis artery = 62mmHg. Left digit = 51 mmHg. The left dorsalis pedis waveforms are monophasic. The left posterior tibial artery waveforms are monophasic. Right Segmental Pressures Right brachial= 181mmHg. Right thigh = 158mmHg. Right calf = 130mmHg. Right posterior tibial artery = 133mmHg. Right dorsalis pedis artery = 116mmHg. Right digit = 78 mmHg. The right dorsalis pedis waveforms are monophasic. The right posterior tibial artery waveforms are biphasic. Indices The right ankle brachial index by the dorsalis pedis is 0.64. The right ankle brachial index by the posterior tibial artery is 0.73. The right digital-brachial index is 0.43. The left ankle brachial index by the dorsalis pedis is 0.34. The left ankle brachial index by the posterior tibial artery is 0.41. The left digital-brachial index is 0.28. . Preliminary report given to John's RN. VL/Lower Ext Art Exam w/o Exercis Interpretation Summary Right SHAKIR 0.73, moderate arterial insufficiency. Doppler/PVR waveforms and segm ental pressures reveal aorto-iliac, proximal SFA. distal SFA/popliteal disease Left SHAKIR 0.41,severe arterial insufficiency. Doppler/PVR waveforms and segmenta l pressures reveal aorto-iliac, proximal SFA disease Ordering Physician: Alec Lopez Referring Physician: Nate Gray M.D. Performed By: Gris Jung RVT
== END | disposition home or self-care (01) ==
LOC: CVS 12:38
PROVIDERS: PCP Internal Medicine; Referring Provider Surgery Trauma Surgery; Visit Provider Surgery Trauma Surgery
DX: I73.9 Peripheral vascular disease, unspecified (principal)
CPT/HCPCS: 93923

== ENCOUNTER → 2022-06-28 | Outpatient (CLI) | payer MEDICARE, SELFPAY ==
[2022-06-28 13:44] LABS: EST Glomerular Filtration Rate 76 mL/min (>60); Est Glom Filt Rate - Afr Amer 92 mL/min (>60)
--- NOTE | 2022-06-28 13:45 | CT_ITS ---
STUDY: CTA OF THE ABDOMINAL AORTA AND BILATERAL LOWER EXTREMITIES REASON FOR EXAM: Female, 67 years old. atherosclerosis with rest pain TECHNIQUE: Axial CT angiography multi-detector data acquisition was obtained from the lung bases to the feet following intravenous administration of IV 100mL Isovue-370. Axial images and MIP images were reconstructed from the axial data set. Post-processing of the angiographic images was performed, with multiplanar reformation and 3D reconstruction. Individualized dose optimization techniques were used for this CT. COMPARISON: 03/24/2022. FINDINGS: Abdomen/Pelvis: Visualized lung bases: Unremarkable Liver: Unremarkable Gallbladder: Unremarkable Spleen: Unremarkable Pancreas: Unremarkable Adrenal Glands: Unremarkable Kidneys: Stable bilateral cysts. GI Tract: Scattered diverticula throughout the colon without evidence of inflammation. Lymphadenopathy: None Peritoneum: Ventral hernia repair with mesh. Bladder: Unremarkable Reproductive organs: Unremarkable Bones/Soft tissues: There are diffuse degenerative changes of the spine. Vasculature: Abdominal aorta: Atherosclerotic changes of the abdominal aorta no stricture. No dissection or aneurysm. Celiac trunk: Diminutive left splenic artery. Otherwise normal. SMA: Mild narrowing at the origin due to atherosclerotic disease. Renals: Mild narrowing at the bilateral ostiums due to atherosclerotic disease. VERN: No demonstrated narrowing. Right common iliac artery: Atherosclerotic changes with mild diffuse stenosis. Stable dissection. Right external iliac artery: There is a patent stent running the length of the external iliac artery. Right internal iliac artery: Mild atherosclerotic changes with mild multifocal stenosis. Left common iliac artery: Atherosclerotic changes with mild diffuse stenosis. Left external iliac artery: Atherosclerotic changes with mild diffuse stenosis. Left internal iliac artery: Nonvisualization of the proximal internal iliac artery. The pelvic branches are opacified via collaterals. RIGHT LOWER EXTREMITY Right common femoral artery: Atherosclerotic changes with mild diffuse stenosis. Right profundus femoris: No demonstrated narrowing. Right superficial femoral: Severe stenosis at the origin of the superficial femoral artery. Calcifications are seen along the course of the artery without contrast consistent with occlusion. Similar in appearance to prior. Right popliteal artery: Reconstitution via collaterals from the profunda just below Perez''''s canal. Minimal atherosclerotic changes without stenosis. Right tibioperoneal trunk: No demonstrated narrowing. Right anterior tibial artery: No demonstrated narrowing. Right posterior tibial artery: No demonstrated narrowing. Right peroneal artery: No demonstrated narrowing. LEFT LOWER EXTREMITY Left common femoral artery: Atherosclerotic changes with mild to moderate diffuse stenosis. Left profundus femoris: Atherosclerotic changes with severe multifocal narrowing Left superficial femoral: Scattered atherosclerotic changes with moderate to severe stenosis of the proximal SFA. This appears to occlude in the mid vessel. Similar appearance to prior. Left popliteal artery: Popliteal reconstitutes just below Perez''''s canal via collaterals from the profunda. There is scattered atherosclerotic plaque without stenosis. Left tibioperoneal trunk: No demonstrated narrowing. Left anterior tibial artery: No demonstrated narrowing. Left posterior tibial artery: No demonstrated narrowing. Left peroneal artery: No demonstrated narrowing. CT/CTA Abd w/Runoff W/WO Contrast IMPRESSION: Redemonstration of occluded right and left SFAs with reconstitution at the popliteals. Other findings as above. Overall no change from prior exam. Electronically Signed: Gilmer Romero MD at 0:16 EDT ,
== END | disposition home or self-care (01) ==
PROVIDERS: PCP Internal Medicine; Referring Provider Surgery Trauma Surgery; Visit Provider Surgery Trauma Surgery
DX: I77.9 Disorder of arteries and arterioles, unspecified (principal); I70.223 Atherosclerosis of native arteries of extremities with rest pain, bilateral legs
CPT/HCPCS: 36415; 75635; 82565; Q9967; A4216

== ENCOUNTER → 2022-07-13 | Outpatient (CLI) | payer MEDICARE, SELFPAY ==
--- NOTE | 2022-07-13 12:29 | STRESSREP_ITS ---
Stress Test Report Date: 07/13/2022 Procedure: Pharmacologic stress nuclear imaging study Indications: Preoperative Consent: Per the patient Procedure: The patient underwent pharmacologic (Regadenoson 0.4mg ) evaluation with a peak heart rate of 106 beats per minute (75%predicted maximal heart rate) and a peak blood pressure of 124/84 mmHg. The baseline ECG demonstrated normal sinus. The peak pharmacologic ECG demonstrated no significant changes. No arrhythmias were noted. No complaints of chest discomfort noted. The patient was injected with 12 millicuries of technetium 99m Cardiolite and subsequently rest SPECT Cardiolite nuclear imaging was obtained in the horizontal long, vertical long, and short axis views. The patient underwent pharmacologic (Regadenoson) evaluation. The patient was injected with 34.9 millicuries of technetium 99m Cardiolite and subsequently stress SPECT Cardiolite nuclear imaging was obtained in the horizontal long, vertical long, and short axis views. A gated Cardiolite study at peak stress was obtained. The examination was stopped secondary to completion of protocol. Rest and stress SPECT Cardiolite nuclear imaging status post realignment, normalization, and attenuation correction demonstrate homogenous tracer distribution with no changes post Lexiscan infusion.The reported LVEF is 69%. Impression: 1. Pharmacologic (Regadenoson) evaluation 2. Peak pharmacologic ECG with no ischemic changes. 3. No cardiac arrhythmias noted. 5. No resting or post Lexiscan perfusion defects noted. 6. The gated Cardiolite study reports an LVEF of 69%. This note was generated with JP3 Measurementation software. It may contain incorrect words, spelling, and punctuation that were not noted in checking the note before signing.
== END | disposition home or self-care (01) ==
LOC: CVS 07:10
PROVIDERS: PCP Internal Medicine; Referring Provider Surgery Trauma Surgery; Visit Provider Surgery Trauma Surgery
DX: Z01.810 Encounter for preprocedural cardiovascular examination (principal)
CPT/HCPCS: 78452; 93017; A9500; A4216; J2785

== ENCOUNTER 2022-07-19 08:14 | Inpatient (IN) | payer MEDICARE, SELFPAY ==
--- NOTE | 2022-07-17 12:20 | EKG12_ITS ---
Test Reason : PREOP Blood Pressure : / mmHG Vent. Rate : 080 BPM Atrial Rate : 080 BPM P-R Int : 150 ms QRS Dur : 084 ms QT Int : 370 ms P-R-T Axes : -23 063 026 degrees QTc Int : 426 ms Normal sinus rhythm Normal ECG Confirmed by AFIA KULKARNI, SHERIF ([id number]), clinical editor DRISS GOMEZ ([id number]) on 07/18/2022 9:18:12 AM Referred By: Alec Lopez Confirmed By:SHERIF OREILLY MD
--- NOTE | 2022-07-17 12:20 | RAD_ITS ---
STUDY: X-RAY CHEST REASON FOR EXAM: Female, 67 years old. PREOP TECHNIQUE: PA or AP and lateral COMPARISON: 05/30/2022. FINDINGS: New mild lingular atelectasis or less likely fibrosis. There is no demonstrated pleural abnormality. Normal size heart. Normal mediastinum and trisha. Normal visualized pulmonary arteries. Normal visualized aortic arch and descending thoracic aorta. Normal visualized thoracic spine. Multiple old left posterior lateral seventh, eighth, and ninth rib fractures. There is no demonstrated abnormality of the visualized soft tissue structures of the upper abdomen. Metallic density projects over the left upper quadrant. RAD/Chest PA and Lateral IMPRESSION: New mild lingular atelectasis or fibrosis. Old left rib fractures involving the posterior lateral seventh, eighth and ninth ribs. Surgical wire sutures project over left upper quadrant. Electronically Signed: Shine Martinez MD, ACE at 13:42 EDT ,
[2022-07-17 13:10] LABS: Mean Corp Hgb Conc 33.3 g/dL (32-36); Mean Corpuscular Hgb 32.1 pg (27.0-32.0); Mean Corpuscular Volume 96.3 fL (81-99); Mean Platelet Vol. 9.3 fl (6.2-12.0); Platelet Count 324 K/mm3 (150-450); RBC Distribution Width SD 49.8 fl (35.1-43.9); Red Blood Count 3.74 M/mm3 (4.2-5.4); White Blood Count 8.5 K/mm3 (4.4-11.0)
[2022-07-17 13:43] LABS: Anion Gap 8 (5-15); BUN 17 mg/dL (7-18); BUN/Creat Ratio 19.3 RATIO (10-20); Calcium,Total 8.8 mg/dL (8.5-10.1); Chloride 99 mmol/L (98-107); Creatinine, Serum 0.88 mg/dL (0.55-1.02); EST Glomerular Filtration Rate 68 mL/min (>60); Est Glom Filt Rate - Afr Amer 82 mL/min (>60); Glucose 98 mg/dL (74-106); Potassium 4.9 mmol/L (3.5-5.1); Sodium Level 132 mmol/L (136-145)
[2022-07-19] VITALS (20 sets, daily range): BP systolic 111–165; BP diastolic 55–83; PULSE 64–94; RESP 10–18; TEMP 35.9–36.3; O2SAT 86–99; BMI 32.3; BMI 32.4
[2022-07-19] MEDS: Lactated Ringers 1,000 ML 15 ML IV (09:09)
--- NOTE | 2022-07-19 09:18 | HP.PCM_ITS ---
History and Physical Allergies amlodipine Allergy (Verified 07/06/22 14:29) Unknownclonidine Allergy (Verified 07/06/22 14:29) Unknownadhesive Adverse Reaction (Verified 07/06/22 14:29) Rashcodeine Adverse Reaction (Verified 07/06/22 14:29) Nauseafentanyl Adverse Reaction (Verified 07/06/22 14:29) Other Medications tramadol 50 mg tablet 50 mg PO TID pain/sleep 07/26/15 [History Confirmed 07/06/22] atorvastatin 20 mg tablet 20 mg PO QHS cholesterol 05/28/19 [History Confirmed 07/06/22] carvedilol 25 mg tablet 25 mg PO BID BP 05/28/19 [History Confirmed 07/06/22] spironolactone 25 mg tablet 25 mg PO QHS BP 05/28/19 [History Confirmed 07/06/22] alprazolam 0.5 mg tablet 0.5 mg PO TID PRN PRN Anxiety 02/12/21 [History Confirmed 07/06/22] pantoprazole 40 mg tablet,delayed release 40 mg PO DAILY stomach 02/12/21 [History Confirmed 07/06/22] psyllium 1 packet PO DAILY constipation 02/12/21 [History Confirmed 07/06/22] diphenhydramine 25 mg-acetaminophen 500 mg tablet (Tylenol PM Extra Strength) 1,000 tab PO QHS PRN PRN Sleep 02/13/21 [History Confirmed 07/06/22] gabapentin 300 mg capsule 300 mg PO BID nerve 12/09/21 [History Confirmed 07/06/22] fluticasone fur. 200 mcg-umeclid 62.5 mcg-vilant 25 mcg inhalat.powder (Trelegy Ellipta) 1 inh inhalation DAILY #60 ea 01/12/22 [Rx Confirmed 07/06/22] Lactobacillus acidophilus 20 billion cell capsule (Florajen Acidophilus) 10 mg PO DAILY 02/13/22 [History Confirmed 07/06/22] calcium carb-vit M8-[id number]-saqh 333 mg-200 unit-133 mg-5 mg tablet 1 tab PO DAILY 02/13/22 [History Confirmed 07/06/22] potassium chloride 20 mEq tablet,extended release 20 meq PO DAILY 02/13/22 [History Confirmed 07/06/22] clopidogrel 75 mg tablet See Rx Instructions .Route .COMPLEX #90 tabs 06/13/22 [Rx Confirmed 07/06/22] cilostazol 100 mg tablet 100 mg PO BID #60 tabs 07/06/22 [Rx Confirmed 07/06/22] oxycodone-acetaminophen 5 mg-325 mg tablet 1 tab PO Q6H PRN PRN Pain 3 days #15 TABLETS 07/06/22 [Rx Confirmed 07/06/22] PFSH Medical History? Alcohol abuse Anxiety Asthma Closed fracture of fifth metatarsal bone of left foot Clostridium difficile colitis COPD (chronic obstructive pulmonary disease) Diverticulitis of colon without hemorrhage Duodenal ulcer Essential hypertension GERD (gastroesophageal reflux disease) H/O spleen injury History of pelvic hematoma Hyperlipemia Hypertension Impaired fasting glucose Incisional hernia without mention of obstruction or gangrene Injury, spleen, with capsular tears Osteoarthritis Pneumohemothorax, traumatic Pseudocyst of pancreas S/P arteriogram of extremity Spleen hematoma Tobacco abuse Surgical History? H/O colostomy H/O: History of hernia repair History of spinal surgery Family History? Mother Heart disease Hypertension DiabetesSister HypertensionBrother HypertensionSister Hypertension Cervical cancerBrother Pancreatic cancer Social History? household members:? spouse housing:? house Smoking Status:? Current every day smoker tobacco type: cigarettes Electronic Cigarette Use:? not used second hand exposure:? Yes alcohol intake:? current alcohol intake frequency: a few times a week substance use type:? does not use caffeine:? Yes what type of physical activity do you participate in:? bicycling frequency:? 1-2 times per week HPI HPI HPI: BAHMAN MICHELE, is a 67 F who presents to the office today for further discussion of LLE nocturnal rest pain, bilateral thigh/calf claudication. She has had PVRs and CTA and is here to discuss options. No change in symptoms, no foot wounds. Upon further questioning, her claudication improves mostly after sitting, and is less severe when walking with shopping cart. ROS General General: Yes weight change and fatigue; No appetite, colon cancer, breast cancer or weakness HEENT HEENT: No difficulty swallowing, eye injury, eye surgery, swollen glands or hoarseness Endo Endocrine: No thyroid disease, diabetes mellitus, thyroid cancer, Hair loss, heat intolerance or cold intolerance Skin Skin: No rash or changing moles Musc Musculoskeletal: Yes back problems and arthritis; No rheumatoid arthritis, gout or joint pain Cardio Cardiovascular: Yes high blood pressure; No murmur, pacemaker, heart disease, atrial fibrillation, heart attack, heart stent, palpitations, shortness of breat with exertion or chest pain Psych Psychiatric: Yes anxiety; No depression or hearing voices Resp Respiratory: Yes shortness of breath, No sleep apnea, No cough, Yes COPD, No asthma, Yes emphysema and No wheezing Gastro Gastrointestinal: No abdominal pain, No nausea or vomiting, No diarrhea, No constipation, No blood in stool, Yes acid reflux, Yes hemorrhoids, No ulcers, Yes gallbladder problem and No black,tarry stools Vik Hematologic: Yes blood thinners, No blood disorders, No bleeding, No anemia and No blood clots Neuro Neurologic: No system reviewed and no additional complaints, except as documented, No as per HPI, No abnormal gait, No abnormal hearing, No abnormal movements, No abnormal speech, No behavioral changes, No burning sensations, No confusion, No convulsions, No disequilibrium, No dizziness, No localized weakness, No frequent falls, No headache(s), No lack of coordination, No loss of vision, No memory loss, Yes numbness, No other visual disturbances, No radicular pain, No restless legs, No sensory deficit, No syncope, Yes tingling, No tremor(s), No weakness and No other Exam Const General: cooperative, healthy appearing, comfortable, no acute distress and well developed Nutritional Appearance: well nourished Orientation: alert, awake and oriented x3 [facility] Head: normocephalic and atraumatic Ears: hearing grossly normal bilaterally Nose: external nose normal Eyes General: appearance normal, both eyes and all related structures EOM: EOM intact bilaterally Neck Neck: normal visual inspection and trachea midline Resp Effort & Inspection: normal respiratory effort, able to speak in complete sentences, symmetric chest movement, no audible wheezes, not labored, no stridor and no use of accessory muscles Cardio Rate: regular rate Rhythm: regular rhythm Skin General: no rashes or lesions noted and no erythema Wounds: no wounds Neuro Cranial Nerves: CN's II-XI intact bilaterally and EOM intact bilaterally Speech: speech normal Gait: normal gait Motor: strength 5/5 throughout Sensory Exam: no sensory deficits noted Psych Appearance: grossly normal and well kempt Mental Status: mental status grossly normal Mood: congruent mood Speech and Movement: speech and movement normal Thought Content: normal Judgment: judgment good Coding Level of Care Code Off vis,est,level 2 Diagnoses PAOD (peripheral arterial occlusive disease)? I77.9 Assessment and Plan Assessment and Plan (1) PAOD (peripheral arterial occlusive disease): ?Status:?Chronic ?Comment: -CTA reviewed, compared to angiogram -has what appears to be anterior origin of large profunda branch on angio that is occluded on CTA; suspect that branch is source of increased symptoms after femoral access -recurrent stenosis in left external iliac artery -bilateral common femoral stenoses -left SFA long segment tandem stenosis with occlusion distally ?Plan: -will plan for left femoral endart, attempt to open the profunda branch and stent external iliac; that should get her out of rest pain and hopefully free of arterial claudication -sartorius flap -potentially will address right common femoral at a later time -suspect some element of neurogenic etiology given pattern of symptoms; will have her evaluated by Spine surgery after left femoral addressed -add pletal, stop pentoxifylline
--- NOTE | 2022-07-19 09:45 | PLAQ_PTH ---
PATIENT: ABHMAN MICHELE LOC: [facility] U#:[id number] AGE/SX: 67/F ROOM: ICU02 RE07/19/[address]: Dr. Alec Lopez MD : 1955 BED: 1 DIS: 07/20/2022 SPEC #: [id number] RECD: 07/20/22 08:12 STATUS: ARLENE RESierra #: [id number] JUSTA: 07/19/22 09:[address]: Alec Lopez DEPT: SURGICAL PATHOLOGY RECD BY: Cassia Garay ENTERED: 07/20/22 10:59 SP TYPE: PLAQUE OTHR DR: Dr. Nate Gray MD Tissues: PLAQUE Procedures: Decalcification bone/plaque Surgery Specimen Level III HEADER OPERATION: Femoral endarterectomy, iliac stent, Sartorius flap PRE-OP DIAGNOSIS: Peripheral arterial occlusive disease TISSUE SUBMITTED: Plaque MICROSCOPIC DIAGNOSIS Plaque, femoral endarterectomy: Atherosclerotic tissue with focal calcifications (plaque). See comment. CHAPARRO:jj 07/26/2022 COMMENT Focal area of bony metaplasia is also noted. GROSS DESCRIPTION Received in fixative is one container labeled with the patient's name and designated plaque. The specimen consists of a previously opened hadley, indurated piece of tissue measuring 3 cm in length and 0.5 cm in diameter. The specimen cuts with gritty sensation. The entire specimen is submitted in one cassette after decalcification. / CHAPARRO:jj 07/20/2022 TC:5 CPT: 79108, 01339
[2022-07-19] MEDS: Cefazolin 2 GM in 0.9% Normal Saline 100 ML IV (10:07)
[2022-07-19] MEDS: Heparin Injection (Vial) 5,000 UNIT/ML VIAL 5000 UNIT (11:00)
[2022-07-19] MEDS: Heparin 10,000 UNITS/10 ML Vial 10000 UNITS (12:00)
--- NOTE | 2022-07-19 14:01 | RAD_ITS ---
STUDY: LEFT FEMORAL ENDARTERECTOMY AND ILIAC STENT PLACEMENT REASON FOR EXAM: Female, 67 years old. LT FEMORAL ENDARTERECTOMY, ILIAC STENT FLUOROSCOPY TIME (if supplied): ( 3 minutes ) minutes/seconds. 5 images were submitted. TECHNIQUE: Intraoperative images are provided for angioplasty and stenting of the left common femoral artery. COMPARISON: None. FINDINGS: Intraoperative imaging provided for angioplasty and stenting of the left common femoral artery. RAD/Fluoroscopy 1 Hr or Less IMPRESSION: Intraoperative imaging provided for angioplasty and stenting of the left common femoral artery. Electronically Signed: Deondre Garcia MD at 14:57 EDT ,
--- NOTE | 2022-07-19 15:35 | PCM.OPRPT ---
Report of Operation Date of Procedure: 07/19/22 Pre-Operative Diagnosis: Atherosclerosis with rest pain left lower extremity Post-Operative Diagnosis: Same Surgery/Procedure Performed:: Left common femoral endarterectomy Left profunda femoral endarterectomy Angioplasty and stent of left external iliac artery Left sartorius flap Surgeon: Alec Lopez Type of Anesthesia: General Specimen's removed: Plaque Estimated Blood Loss (mL): 200 Description of Procedure: HPI: Patient is a 67-year-old female who previously underwent angiography and intervention of her iliac arteries via left femoral access. Post procedure she had worsening left lower extremity claudication and nocturnal rest pain. Noninvasive vascular lab revealed diminished SHAKIR from preprocedure and CT angiography revealed recurrent stenosis of the external leg artery which had been angioplastied, and occlusion of the main branch of the profunda which had been patent at the time the angiogram. She is taken now for left femoral endarterectomy stenting of the external iliac and sartorius flap. Description of procedure: Upon obtaining form consent and verification correct patient procedure site patient was taken the operating room she was placed under general anesthesia. She was then positioned prepped and draped in usual sterile fashion a time was performed. Oblique incision was made 2 fingerbreadths inferior to the inguinal ligament in both electrocautery was used to dissect down through subcutaneous tissue. Self-retaining tractor was then put in position and further dissection was carried down to the femoral sheath. Self-retaining retractors moved deeper in the wound and dissection was carried up to the inferior border of the inguinal ligament which was freed along cephalad retraction. Femoral sheath was then incised vertically exposing the common femoral artery. Sharp section use dissected free proximally up under the inguinal ligament onto the distal external iliac artery above the inferior epigastric and lateral circumflex branches. Right images placed vessel dislocation and care dissection down distally to the femoral bifurcation. It appeared as if the previous angiogram access was actually on the profunda origin and it appears that they had used a Pro-glide closure device which a compromise the lumen. We dissected distally onto the mid profundofemoral artery and a running was placed vessel. Then dissected down to the superficial femoral artery and right in which was a vessel. Patient was then heparinized less over the minutes and an ACT obtained with heparin reducing every 30 minutes based on ACT. 11 blade was used to create an arteriotomy in the proximal profundofemoral artery extended proximally with Loera scissors onto the common femoral artery and ultimately to the distal external leg artery. The suture for the prior Pro-glide was intraluminal and appeared to be dissection in the profunda that had been anchored to the anterior wall causing the occlusion. And performed endarterectomy of the common femoral artery down to the origin superficial artery and midportion of the profundofemoral artery. Modifier 22 applied to the common femoral endarterectomy given the extensive endarterectomy up onto the inguinal ligament and the patient's body habitus significant difficulty for endarterectomy and suturing end of the patch. This added additional 1 hour to the procedure. We had what appeared to be satisfactory endpoint on the profunda and superficial artery so 7-0 Prolene used to tack the endpoint on the superficial femoral artery and a bovine pericardial patch brought in the field. The proximal SFA was closed primarily with 7-0 Prolene and then the patch was secured to the common femoral artery and proximal profunda with 6-0 Prolene in a running fashion. Prior to completing the suture line vessels were backbled and the lumen flushed heparinized saline. There was no backbleeding from the profunda and a dilator was unable to be passed beyond the distal endpoint of the patch. We decided to complete our patch and reestablish flow through the SFA, and there were satisfied hemostasis of the suture line and a palpable pulse onto the proximal SFA. We then put a counterincision vertically in the skin in order to facilitate this more distal profunda exposure and readjust her self-retaining tractors. The dissected free several centimeters more distal in the profunda and right and was placed vessel loop. The proximal profunda was occluded with atraumatic clamp and the distal profunda occluded with a vessel loop. A new arteriotomy was created with a blade on the profunda and extended with Loera scissors distally with still apparent chronic dissection within the vessel. We adjusted our clamps more distally and ultimately able to visualize the distal extent of the dissection. We performed separate endarterectomy of the profunda distal to the previous patch and a second patch was sutured on to the mid to distal profunda with a 6-0 Prolene. Clamps were then removed there is palpable pulse throughout the profunda beyond the area of the patch satisfactory Doppler signals. We then accessed the midportion of the patch with a micropuncture needle and wire not in retrograde fashion exchanged out for micropuncture sheath. An injection angiogram confirmed satisfactory position no extravasation or dissection. Volofyson wire was then advanced through the micropuncture sheath exchanged for 7 Japanese sheath through which a marker catheter was advanced. Subtraction angiogram of the left external artery was performed and a 6 mm x 80 Cook Zilver PTX stent was selected. This then brought in the field and prep for store product demonstrator instructions and advanced in the position. Was then deployed and post with a 5 mm angioplasty balloon with completion angiography revealed satisfactory resolution of the stenosis with no extravasation or dissection. We then withdrew the sheath and wire and repaired the arteriotomy with a 5-0 Prolene. Patient was then reversed with protamine and Surgicel topical hemostatic applied. At this point we turned attention to sartorius and dissected laterally to the point inferior below the ASIS. We then incised the fascia and mobilized the sartorius up to the insertion into the ASIS. Its insertion was then taken out Bovie and the muscle transpose into position over the femoral vessels. This was then secured using 2-0 Vicryl interrupted sutures followed by 3-0 Vicryl and 4 Monocryl and Dermabond for the skin. Prevena wound VAC was then applied and the patient was awakened anesthesia taken the intensive care unit for hemodynamic and vascular monitoring.
[2022-07-19] MEDS: 0.9% Normal Saline 1,000 ML 100 ML IV (16:21)
[2022-07-19] MEDS: HYDROmorphone 0.5 MG/0.5 ML SYRINGE IV (16:21)
[2022-07-19 17:08] LABS: ACT Activated Clotting Time 130 sec (74-137)
[2022-07-19 17:09] LABS: ACT Activated Clotting Time 277 sec (74-137)
[2022-07-19 17:10] LABS: ACT Activated Clotting Time 237 sec (74-137)
[2022-07-19 17:12] LABS: ACT Activated Clotting Time 219 sec (74-137)
[2022-07-19 17:13] LABS: ACT Activated Clotting Time 225 sec (74-137)
[2022-07-19] MEDS: Labetalol (Prefilled) 20 MG/4 ML 10 MG IV (17:14)
[2022-07-19 17:15] LABS: ACT Activated Clotting Time 219 sec (74-137)
[2022-07-19] MEDS: Cefazolin 1 GM/50 ML BAG IV (17:17)
[2022-07-19] MEDS: Budesonide Respules 0.5 MG/2 ML AMPUL.NEB. INHALATION (18:55)
[2022-07-19] MEDS: Ipratropium/Albuterol Sulfate 3 ML AMPUL.NEB INHALATION (18:55)
[2022-07-19] MEDS: oxyCODONE 5 MG Tablet PO ×2 (19:23→23:25)
[2022-07-19] MEDS: ALPRAZolam 0.5 MG Tablet PO (21:59)
[2022-07-19] MEDS: Gabapentin 300 MG Capsule 600 MG PO (21:59)
[2022-07-19] MEDS: Cilostazol 50 MG Tablet 100 MG PO (22:03)
[2022-07-19] MEDS: Atorvastatin Calcium 20 MG Tablet PO (22:03)
[2022-07-19] MEDS: Carvedilol 25 MG Tablet PO (22:05)
[2022-07-20] VITALS (16 sets, daily range): BP systolic 91–147; BP diastolic 49–86; PULSE 82–100; RESP 12–19; TEMP 36.1–36.6; O2SAT 90–94; BMI 32.4
[2022-07-20] MEDS: Cefazolin 1 GM/50 ML BAG IV ×2 (01:52→10:37)
[2022-07-20] MEDS: 0.9% Normal Saline 1,000 ML 100 ML IV (01:52)
[2022-07-20] MEDS: HYDROmorphone 0.5 MG/0.5 ML SYRINGE IV ×2 (01:57→08:21)
[2022-07-20] MEDS: 0.9% Saline Lock 10 ML Syringe IV (01:58)
[2022-07-20] MEDS: oxyCODONE 5 MG Tablet PO ×2 (05:36→10:30)
[2022-07-20] MEDS: ALPRAZolam 0.5 MG Tablet PO (05:38)
[2022-07-20] MEDS: Gabapentin 300 MG Capsule 600 MG PO (05:38)
[2022-07-20] MEDS: Ipratropium/Albuterol Sulfate 3 ML AMPUL.NEB INHALATION (06:56)
[2022-07-20] MEDS: Budesonide Respules 0.5 MG/2 ML AMPUL.NEB. INHALATION (06:56)
[2022-07-20 07:18] LABS: Absolute Lymphocyte Count 1.96 X10^3/uL (0.83-4.51); Absolute Neutrophil Count 6.9 X10^3/uL (2.0-7.7); Basophil# 0.03 X10^3/uL; Basophil% 0.3 % (0-1); Eosinophil# 0.04 X10^3/uL; Eosinophils% 0.4 % (0-5); Hematocrit 30.9 % (37-47); Lymphocyte # 1.96 X10^3/ul (0.83-4.51); Lymphocyte % 19.4 % (19-41); Mean Corp Hgb Conc 32.4 g/dL (32-36); Mean Corpuscular Hgb 31.9 pg (27.0-32.0); Mean Corpuscular Volume 98.7 fL (81-99); Mean Platelet Vol. 9.3 fl (6.2-12.0); Monocyte% 10.9 % (0-10); NRBC Flagged by Analyzer 0 % (0-5); Neutrophil # 6.92 X10^3/uL (2.7-7.7); Neutrophil % 68.6 % (47-70); Platelet Count 278 K/mm3 (150-450); RBC Distribution Width CV 13.9 % (11.6-14.6); RBC Distribution Width SD 50.4 fl (35.1-43.9); Red Blood Count 3.13 M/mm3 (4.2-5.4); White Blood Count 10.1 K/mm3 (4.4-11.0)
[2022-07-20 07:33] LABS: Anion Gap 7 (5-15); BUN 10 mg/dL (7-18); BUN/Creat Ratio 14.8 RATIO (10-20); Chloride 102 mmol/L (98-107); Creatinine, Serum 0.68 mg/dL (0.55-1.02); EST Glomerular Filtration Rate 92 mL/min (>60); Est Glom Filt Rate - Afr Amer 112 mL/min (>60); Estimated Creatinine Clearance 64.11 ml/min; Glucose 102 mg/dL (74-106); Magnesium 1.6 mg/dL (1.6-2.6); Potassium 4.1 mmol/L (3.5-5.1); Sodium Level 133 mmol/L (136-145)
--- NOTE | 2022-07-20 08:00 | NURSING ---
This RN was at bedside performing morning assessment. Just before leaving the room, the patient mad and exclamation and blood was observed pooling on the pillow under her Right Wrist. The arterial line was re-assessed and found to have come completely out of the skin and dressing with blood pulsating from the site. This RN aplied pressure to the sight and quickly gained control of the bleeding. About baseball sized amount of blood on pillow before bleeding was controlled. Dr Lopez walked in to assess patient and became aware of the situation. Verbal Order given to leave art line out and apply dressing as he planned to have it d/c'd today anyway. hemostasis was obtained and dressing applied. vitals remained stable and patient remains asymptomatic, denies any needs at this time. Ordered to d/c cross catheter and ambulate patient as tolerated, anticipate discharge this afternoon
[2022-07-20] MEDS: Acetaminophen 500 MG Tablet 1000 MG PO (08:20)
[2022-07-20] MEDS: Clopidogrel Bisulfate 75 MG Tablet PO (08:20)
[2022-07-20] MEDS: Cilostazol 50 MG Tablet 100 MG PO (08:20)
[2022-07-20] MEDS: Pantoprazole Sodium 40 MG Tablet PO (08:20)
--- NOTE | 2022-07-20 08:53 | PCM.DC.SUM ---
Providers Date of Admission: 07/19/22 Date of Discharge: 07/20/22 Primary Care Physician: Dr. Nate Gray MD Reason For Visit: FEMORAL ENDARTERECTOMY, FLAP Diagnosis Discharge Diagnosis (1) PAOD (peripheral arterial occlusive disease): Status: Chronic Code(s): I77.9 - Disorder of arteries and arterioles, unspecified Medications at Discharge Home Medications tramadol 50 mg tablet 50 mg PO TID pain/sleep 07/26/15 atorvastatin 20 mg tablet 20 mg PO QHS cholesterol 05/28/19 carvedilol 25 mg tablet 25 mg PO BID BP 05/28/19 spironolactone 25 mg tablet 25 mg PO DAILY BP 05/28/19 alprazolam 0.5 mg tablet 0.5 mg PO TID ANXIETY 02/12/21 pantoprazole 40 mg tablet,delayed release 40 mg PO DAILY stomach 02/12/21 psyllium 1 packet PO DAILY constipation 02/12/21 diphenhydramine 25 mg-acetaminophen 500 mg tablet (Tylenol PM Extra Strength) 1,000 tab PO QHS PRN PRN Sleep 02/13/21 gabapentin 300 mg capsule 600 mg PO TID nerve 12/09/21 Lactobacillus acidophilus 20 billion cell capsule (Florajen Acidophilus) 10 mg PO DAILY SUPPLEMENT 02/13/22 cilostazol 100 mg tablet 100 mg PO BID PAD 07/14/22 clopidogrel 75 mg tablet 75 mg PO DAILY BLOOD THINNER 07/14/22 fluticasone fur. 200 mcg-umeclid 62.5 mcg-vilant 25 mcg inhalat.powder (Trelegy Ellipta) 1 inh inhalation DAILY ASTHMA 07/14/22 acetaminophen 500 mg tablet 1,000 mg PO Q6H PRN Pain 07/19/22 oxycodone-acetaminophen 5 mg-325 mg tablet (Percocet) 1 tab PO Q6H PRN pain 7 days #28 tabs 07/20/22 Hospital Course Operations - (left common femoral and profunda femoral endarterectomy, left external iliac stent, left sartorius flap) Physical Exam Const alert, oriented x3, no apparent distress and healthy appearing General Appearance: cooperative; Negative for combative or lethargic Orientation / Consciousness: awake Exam Limitations: no limitations HEENT Head and Scalp: normocephalic and atraumatic Eyes EOMs intact bilaterally General Eye: normal appearance of both eyes Neck full ROM General: trachea midline Resp normal respiratory effort and no use of accessory muscles Effort and Inspection: Negative for labored, stridor or audible wheezes Cardio regular rate and regular rhythm Cardio Narrative: monophasic DP/PT on left Peripheral Pulses: radial pulses present Back/Spine Cervical Spine: cervical ROM normal Extremity full ROM, normal capillary refill and no clubbing, cyanosis or edema Skin no rashes or lesions noted and no wounds Neuro oriented x3, CN's II-XII intact bilaterally, no focal motor deficits and no sensory deficits noted Psych thought process normal, cooperative, affect normal, speech normal and activity/motor behavior normal Weight / BMI Weight Weight: 164 lb Body Mass Index (BMI) 32.4 ABG / Lab / Microbiology Data Result Diagrams: 07/20/22 07:10 07/20/22 07:10 Laboratory: Laboratory Results - last 24 hr 07/19/22 10:22: Activated Clotting Time 130 07/19/22 11:43: Activated Clotting Time 277 H 07/19/22 12:21: Activated Clotting Time 237 H 07/19/22 13:04: Activated Clotting Time 219 H 07/19/22 13:48: Activated Clotting Time 225 H 07/19/22 14:30: Activated Clotting Time 219 H 07/20/22 07:10: WBC 10.1, RBC 3.13 L, Hgb 10.0 L, Hct 30.9 L, MCV 98.7, MCH 31.9, MCHC 32.4, RDW Std Deviation 50.4 H, RDW Coeff of Renea 13.9, Plt Count 278, MPV 9.3, Immature Gran % (Auto) 0.400, Neut % (Auto) 68.6, Lymph % (Auto) 19.4, [place] % (Auto) 10.9 H, Eos % (Auto) 0.4, Baso % (Auto) 0.3, Absolute Neuts (auto) 6.9, Absolute Lymphs (auto) 1.96, Nucleated RBC % 0 07/20/22 07:10: Sodium 133 L, Potassium 4.1, Chloride 102, Carbon Dioxide 24.0, Anion Gap 7, BUN 10, Creatinine 0.68, Estim Creat Clear Calc 64.11, Est GFR (MDRD) Af Amer 112, Est GFR (MDRD) Non-Af 92, BUN/Creatinine Ratio 14.8, Glucose 102, Calcium 8.0 L, Phosphorus 3.0, Magnesium 1.6 Radiography Diagnostic Testing: Radiology Impression Fluoroscopy 07/19/22 14:01 IMPRESSION: Intraoperative imaging provided for angioplasty and stenting of the left common femoral artery. Electronically Signed: Deondre Garcia MD at 14:57 EDT , D/C Instructions Discharge Diet: No restrictions May shower in (days): 1 Weight Bearing Status: Weight bearing as tolerated Lifting Restrictions: no lifting > 20 lbs for 3 weeks Additional Activity Instructions: do not submerge incision for 3 weeks Call your doctor if your incision/area has: Sudden Increased Bleeding, Increased Pain/ Swelling, Increased Redness and Foul Smelling Discharge Call your doctor if you observe: Fever of 101 or Higher Remove Dressing in: 6 days (then dry gauze daily) Meaningful Use Info Meaningful Use Diagnoses (Choose all that apply): None applicable Discharge Plan Admission Admit Date/Time: 07/19/22 08:14 Attending Provider: Alec Lopez Primary Care Provider: Nate Gray Discharge Orders/Prescriptions Prescriptions: New oxycodone-acetaminophen [Percocet] 5-325 mg tablet 1 tab PO Q6H PRN (Reason: pain) 7 Days Qty: 28 0RF Continued Florajen Acidophilus 20 billion cell capsule 10 mg PO DAILY tramadol 50 MG tablet 50 mg PO TID Label Comments: pain/sleep carvedilol 25 MG tablet 25 mg PO BID Label Comments: BP atorvastatin 20 MG tablet 20 mg PO QHS Label Comments: cholesterol spironolactone 25 MG tablet 25 mg PO DAILY alprazolam 0.5 mg tablet 0.5 mg PO TID psyllium Packet 1 packet PO DAILY pantoprazole 40 mg Tablet,Delayed Release (Dr/Ec) 40 mg PO DAILY diphenhydramine-acetaminophen [Tylenol PM Extra Strength] 25-500 mg Tablet 1,000 tab PO QHS PRN PRN (Reason: Sleep) gabapentin 300 mg capsule 600 mg PO TID Label Comments: TAKE 2 CAPSULES BY MOUTH DAILY AT BEDTIME FOR 180 DAYS. cilostazol 100 mg tablet 100 mg PO BID clopidogrel 75 mg tablet 75 mg PO DAILY Trelegy Ellipta 200-62.5-25 mcg blister with device 1 inh inhalation DAILY acetaminophen 500 mg Tablet 1,000 mg PO Q6H PRN (Reason: Pain) Discontinued oxycodone-acetaminophen 5-325 mg tablet 1 tab PO Q6H PRN PRN (Reason: Pain) 3 Days Qty: 15 0RF pentoxifylline 400 mg Tablet Extended Release 400 mg PO TID Rx Instructions: must administer with a meal/food Referrals / Follow Up: Nate Gray MD [Primary Care Provider] - Disposition Disposition (needs filled in before D/C Order can be placed): Home, Self Care
--- NOTE | 2022-07-20 09:07 | PCM.PN.SRG ---
Subjective Subjective Doing well. Foot feels better, pain at surgical site. Prateek clears, ready for regular diet. Objective Data Objective Data Vital Signs: Vital Signs Temp Pulse Resp BP Pulse Ox O2 Del Method O2 Flow Rate 97.8 F 100 14 115/85 H 93 Nasal Cannula 2 07/20/22 08:00 07/20/22 08:00 07/20/22 08:00 07/20/22 08:00 07/20/22 07:00 07/20/22 08:00 07/20/22 08:00 Oxygen Flow Rate (L/min) 2 Oxygen Delivery Method Nasal Cannula Weight: 164 lb Body Mass Index (BMI) 32.4 Intake & Output: Intake and Output for Last 24 Hours 07/18/22 07/19/22 07/20/22 23:59 23:59 23:59 Intake Total 365.17 / 365.17 851.67 / 851.67 Output Total 650 / 1350 2545 / 2545 Balance -284.83 / -984.83 -1693.33 / -1693.33 Lab / Micro Data Result Diagrams: 07/20/22 07:10 07/20/22 07:10 Labs: Laboratory Results - last 24 hr 07/19/22 10:22: Activated Clotting Time 130 07/19/22 11:43: Activated Clotting Time 277 H 07/19/22 12:21: Activated Clotting Time 237 H 07/19/22 13:04: Activated Clotting Time 219 H 07/19/22 13:48: Activated Clotting Time 225 H 07/19/22 14:30: Activated Clotting Time 219 H 07/20/22 07:10: WBC 10.1, RBC 3.13 L, Hgb 10.0 L, Hct 30.9 L, MCV 98.7, MCH 31.9, MCHC 32.4, RDW Std Deviation 50.4 H, RDW Coeff of Renea 13.9, Plt Count 278, MPV 9.3, Immature Gran % (Auto) 0.400, Neut % (Auto) 68.6, Lymph % (Auto) 19.4, [place] % (Auto) 10.9 H, Eos % (Auto) 0.4, Baso % (Auto) 0.3, Absolute Neuts (auto) 6.9, Absolute Lymphs (auto) 1.96, Nucleated RBC % 0 07/20/22 07:10: Sodium 133 L, Potassium 4.1, Chloride 102, Carbon Dioxide 24.0, Anion Gap 7, BUN 10, Creatinine 0.68, Estim Creat Clear Calc 64.11, Est GFR (MDRD) Af Amer 112, Est GFR (MDRD) Non-Af 92, BUN/Creatinine Ratio 14.8, Glucose 102, Calcium 8.0 L, Phosphorus 3.0, Magnesium 1.6 Radiography Diagnostic Testing: Radiology Impression Fluoroscopy 07/19/22 14:01 IMPRESSION: Intraoperative imaging provided for angioplasty and stenting of the left common femoral artery. Electronically Signed: Deondre Garcia MD at 14:57 EDT , Physical Exam Const alert, oriented x3, no apparent distress and healthy appearing General Appearance: cooperative; Negative for combative or lethargic Orientation / Consciousness: awake Exam Limitations: no limitations HEENT Head and Scalp: normocephalic and atraumatic Eyes EOMs intact bilaterally General Eye: normal appearance of both eyes Neck full ROM General: trachea midline Resp normal respiratory effort and no use of accessory muscles Effort and Inspection: Negative for labored, stridor or audible wheezes Cardio regular rate and regular rhythm Cardio Narrative: monophasic DP/PT on left Peripheral Pulses: radial pulses present Back/Spine Cervical Spine: cervical ROM normal Extremity full ROM, normal capillary refill and no clubbing, cyanosis or edema Skin no rashes or lesions noted and no wounds Neuro oriented x3, CN's II-XII intact bilaterally, no focal motor deficits and no sensory deficits noted Psych thought process normal, cooperative, affect normal, speech normal and activity/motor behavior normal Assessment & Plan Assessment/Plan (1) PAOD (peripheral arterial occlusive disease): PLAN: -stable overnight -dc art tony, [place], [place] -toradol x 1 -regular diet -progressive ambulation -plan DC this afternoon if pain controlled and ambulating
--- NOTE | 2022-07-20 09:48 | CASEMGMT ---
RN CM [employer] CM to room to meet with patient for initial transition planning/care coordination assessment. RN YONI introduced self and role at [facility]. Pt voices understanding and consents to assessment at this time. Pt resting in bed in no distress at this time. Pt is A/O at this time and answers all questions appropriately. Care providers, pharmacy, and demographics verified/updated at this time. PCP: Dr Gray Specialists: Dr Lopez-vascular, Dr Valdivia-pulmonology, Dr Amato-surgeon Preferred Pharmacy: [facility] Retail Insurance: [employer] [facility] Prescription Benefit: Yes Living Will/HPOA: States does not have LW or HCPOA . Interested in more information and would like talk with SW to complete paperwork, if she is available prior to pt discharging home today. VM left w/Luda, SW, re: same. Pt provided w/Social Service rac card with number to call if chooses in the future to utilize [facility] social work for advanced directive completion, if SW is not available prior to discharge. Patient expresses understanding. LNOK: , Eloy. Daughter, Tasia. Living Arrangements: Lives w/ in 2-story home w/one step to enter. FFSU. Independent w/ADL's and manages her own medications and appts. manages home tasks. Transportation: Pt states drives self and states no transportation concerns at this time. also drives. DME: States has the following DME: grab bars, pulse ox, BP machine, nebulizer Pt states no need for further DME at this time. HHC/SNF: No hx of either. No needs identified. Pt wishes to return home and states has no concerns with going home at time of discharge. Pt states she smokes 8-10 cigarettes a day. She reports 45 yr ETOH hx but states she quit cold turkey in 2018 and has not drank since. CM to follow for any further discharge planning/needs. Pt voices no further concerns/needs at this time. Advised pt to ask for CM if any further questions/concerns/needs arise. Voices understanding. PLAN: Home Garry SPANN RN, CM
[2022-07-20] MEDS: Ketorolac 30 MG/ML Syringe IV (10:28)
[2022-07-20] MEDS: Spironolactone 25 MG Tablet PO (10:30)
[2022-07-20] MEDS: Carvedilol 25 MG Tablet PO (10:37)
[2022-07-20] MEDS: FLU VACC QS2022-23(6MOS UP)/PF 60 MCG/0.5 ML SYRINGE IM (10:37)
[2022-07-20] MEDS: Enoxaparin 40 MG/0.4 ML Syringe SC (10:38)
--- NOTE | 2022-07-20 11:45 | NURSING ---
Dr Lopez at bedside to reassess patient. He instructed this RN that patient may be discharged to home when ready
== END 2022-07-20 13:10 | disposition home or self-care (01) | DRG 254 ==
LOC: ACINP 08:17 → ICU 15:23
PROVIDERS: Admitting Provider Surgery Trauma Surgery; PCP Internal Medicine; Referring Provider Surgery Trauma Surgery; Visit Provider Surgery Trauma Surgery
PROC: 04CL0ZZ Extirpation of Matter from Left Femoral Artery, Open Approach (ICD-10-PCS; principal; 2022-07-19 09:25)
DX: I70.222 Atherosclerosis of native arteries of extremities with rest pain, left leg (principal); F10.10 Alcohol abuse, uncomplicated; J44.9 Chronic obstructive pulmonary disease, unspecified; F17.210 Nicotine dependence, cigarettes, uncomplicated; I10 Essential (primary) hypertension; Y90.9 Presence of alcohol in blood, level not specified; Z79.02 Long term (current) use of antithrombotics/antiplatelets; Z79.899 Other long term (current) drug therapy; Z23 Encounter for immunization
CPT/HCPCS: 36415; 71046; 76000; 80048; 83735; 84100; 85025; 85027; 85347; 86850; 86900; 86901; 88304; 88311; 93005; 94640; 99406; C1769; C1894; G0008; J7030; J7040; J7120; 90686; A4216; C1725; J2405

== ENCOUNTER → 2022-07-27 | Outpatient (CLI) | payer MEDICARE, SELFPAY ==
[2022-07-27 13:37] LABS: Anion Gap 8 (5-15); BUN 14 mg/dL (7-18); BUN/Creat Ratio 15.2 RATIO (10-20); Chloride 97 mmol/L (98-107); Creatinine, Serum 0.92 mg/dL (0.55-1.02); EST Glomerular Filtration Rate 65 mL/min (>60); Est Glom Filt Rate - Afr Amer 78 mL/min (>60); Glucose 100 mg/dL (74-106); Potassium 3.9 mmol/L (3.5-5.1); Sodium Level 131 mmol/L (136-145)
== END | disposition home or self-care (01) ==
LOC: LAB 11:40
PROVIDERS: PCP Internal Medicine; Referring Provider Surgery Trauma Surgery; Visit Provider Surgery Trauma Surgery
DX: Z01.818 Encounter for other preprocedural examination (principal)
CPT/HCPCS: 80048

== ENCOUNTER → 2022-08-22 | Outpatient (CLI) | payer MEDICARE, SELFPAY ==
--- NOTE | 2022-08-22 14:56 | ART_ITS ---
Reason For Study: Claudication Procedure A bilateral lower extremity continuous wave Doppler with analog waveform analysis,segmental pressures,and ankle brachial indexes with exercise. Left Segmental Pressures Left brachial= 181mmHg. Left thigh = 112mmHg. Left calf = 110mmHg. Left posterior tibial artery = 91mmHg. Left dorsalis pedis artery = 85mmHg. Left digit = 54 mmHg. The left posterior tibial artery waveforms are biphasic. The left dorsalis pedis waveforms are biphasic. Right Segmental Pressures Right brachial= 173mmHg. Right thigh = 138mmHg. Right calf = 118mmHg. Right posterior tibial artery = 122mmHg. Right dorsalis pedis artery = 112mmHg. Right digit = 74 mmHg. The right posterior tibial artery waveforms are biphasic. The right dorsalis pedis waveforms are biphasic. Indices The right ankle brachial index by the posterior tibial artery is 0.67. The right ankle brachial index by the dorsalis pedis is 0.62. The right digital-brachial index is 0.41. The right post exercise ankle brachial index is 0.46. The left ankle brachial index by the posterior tibial artery is 0.50. The left ankle brachial index by the dorsalis pedis is 0.47. The left digital-brachial index is 0.30. The left post exercise ankle brachial index is 0.30. VL/Lower Ext Art Exam w/ Exercise Interpretation Summary Right SHAKIR 0.67, moderate arterial insufficiency. Doppler/PVR waveforms of the r ight leg reveal [id number], distal SFA/popliteal disease Right lower extremity exhibits an abnormal response to exercise. Left SHAKIR 0.5, moderate arterial insufficiency. Doppler/PVR waveforms of the lef t leg reveal aorto- iliac-femoral disease. Left lower extremity exhibits an abnormal response to exercise. Ordering Physician: Ella Cortez Referring Physician: Nate Gray M.D. Performed By: Sam Mi RVT
== END | disposition home or self-care (01) ==
LOC: CVS 14:39
PROVIDERS: PCP Internal Medicine; Referring Provider Physician Assistant; Visit Provider Physician Assistant
DX: I70.219 Atherosclerosis of native arteries of extremities with intermittent claudication, unspecified extremity (principal); Z48.812 Encounter for surgical aftercare following surgery on the circulatory system
CPT/HCPCS: 93924

== ENCOUNTER 2022-09-05 14:30 | Outpatient (RCR) | payer MEDICARE, SELFPAY ==
[2022-08-16 08:36] VITALS: BP 120/69; PULSE 112; RESP 20; TEMP 36.1
--- NOTE | 2022-08-16 09:49 | PCM.WC.HP ---
History of Present Illness Date of Service: 08/16/22 Chief Complaint: Left groin incision separation History of Wound: Patient is a 67 year old female who presents today for further evaluation of her left groin incisional separation. She has a history of atherosclerosis pain at rest. She had surgery by Dr. Lopez on 07/19/22 for left common femoral endarterectomy, left profunda femoral endarterectomy, angioplasty and stent of left external iliac artery and left sartorius flap. She started to have left groin incisional separation last week. She had been taking tub baths and cleansing the incision with hydrogen peroxide. She also had a cold which was causing her cough more than usual with her COPD. She also had lost her inhalers, and that contributed to her coughing also. She denies fever, chills, nausea and vomiting. Progress of Wound: Left groin wound with tunneling at 3 o'clock along the incision link. The base of the wound is pink, there is clear drainage from a seroma. [facility] Medical History (Reviewed 08/18/22 @ 10:45 by Charity Henderson [employer], [employer]GER-C) Alcohol abuse Anxiety Asthma Chronic pain Closed fracture of fifth metatarsal bone of left foot Clostridium difficile colitis COPD (chronic obstructive pulmonary disease) Diverticulitis of colon without hemorrhage Duodenal ulcer Essential hypertension Full dentures GERD (gastroesophageal reflux disease) H/O spleen injury History of cardiovascular stress test History of pelvic hematoma Hyperlipemia Hypertension Impaired fasting glucose Incisional hernia without mention of obstruction or gangrene Injury, spleen, with capsular tears Leg pain Loss of hearing Osteoarthritis Pneumohemothorax, traumatic Pseudocyst of pancreas S/P arteriogram of extremity Shortness of breath Smoker Spleen hematoma Tobacco abuse Wears glasses Home Medications tramadol 50 mg tablet 50 mg PO TID pain/sleep 07/26/15 [History Last Taken 07/19/22 06:00] atorvastatin 20 mg tablet 20 mg PO QHS cholesterol 05/28/19 [History Last Taken 12/29/19 21:00] carvedilol 25 mg tablet 25 mg PO BID BP 05/28/19 [History Last Taken 07/19/22 06:00] spironolactone 25 mg tablet 25 mg PO DAILY BP 05/28/19 [History Last Taken 12/29/19 21:00] alprazolam 0.5 mg tablet 0.5 mg PO TID ANXIETY 02/12/21 [History Last Taken 07/19/22 06:00] pantoprazole 40 mg tablet,delayed release 40 mg PO DAILY stomach 02/12/21 [History Last Taken 07/19/22 06:00] psyllium 1 packet PO DAILY constipation 02/12/21 [History Last Taken Unknown] diphenhydramine 25 mg-acetaminophen 500 mg tablet (Tylenol PM Extra Strength) 1,000 tab PO QHS PRN PRN Sleep 02/13/21 [History Last Taken Unknown] gabapentin 300 mg capsule 600 mg PO TID nerve 12/09/21 [History Last Taken 03/15/22] Lactobacillus acidophilus 20 billion cell capsule (Florajen Acidophilus) 10 mg PO DAILY SUPPLEMENT 02/13/22 [History Last Taken Unknown] cilostazol 100 mg tablet 100 mg PO BID PAD 07/14/22 [History Last Taken Unknown] clopidogrel 75 mg tablet 75 mg PO DAILY BLOOD THINNER 07/14/22 [History Last Taken Unknown] acetaminophen 500 mg tablet 1,000 mg PO Q6H PRN Pain 07/19/22 [History Last Taken 07/19/22 06:30] oxycodone-acetaminophen 5 mg-325 mg tablet (Percocet) 1 tab PO Q6H PRN pain 7 days #28 tabs 07/20/22 [Rx Last Taken Unknown] fluticasone fur. 200 mcg-umeclid 62.5 mcg-vilant 25 mcg inhalat.powder (Trelegy Ellipta) 1 inh inhalation DAILY ASTHMA #60 ea 08/10/22 [Rx Last Taken Unknown] oxycodone 5 mg capsule 5 mg PO TID PRN pain 5 days #15 caps 08/17/22 [Rx Last Taken Unknown] Allergy/AdvReac Type Severity Reaction Status Date / Time amlodipine Allergy Unknown Verified 08/16/22 08:52 clonidine Allergy Unknown Verified 08/16/22 08:52 adhesive AdvReac Rash Verified 08/16/22 08:52 codeine AdvReac Nausea Verified 08/16/22 08:52 fentanyl AdvReac Other Verified 08/16/22 08:52 Family History Mother Heart disease Hypertension Diabetes Sister Hypertension Brother Hypertension Sister Hypertension Cervical cancer Brother Pancreatic cancer Surgical History H/O colostomy H/O: History of hernia repair Hx of cervical spine surgery Social History household members: spouse housing: house Smoking Status: Current every day smoker tobacco type: cigarettes Electronic Cigarette Use: not used second hand exposure: Yes alcohol intake: current alcohol intake frequency: a few times a week substance use type: does not use caffeine: Yes what type of physical activity do you participate in: bicycling frequency: 1-2 times per week ROS Constitutional Constitutional: Denies fever(s), frequent falls or headache(s) Eyes Eyes: Reports systems reviewed and no addt'l complaints, except as documented and requires corrective lenses ENT HEENT: Reports none Cardiovascular Cardiovascular: Reports as per HPI Respiratory/Chest Respiratory/Chest: Reports as per HPI Gastrointestinal Gastrointestinal: Reports as per HPI Genitourinary Genitourinary: Reports as per HPI Musculoskeletal Musculoskeletal: Reports as per HPI Integumentary Integumentary: Reports wounds Neurologic Neurologic: Reports none Psychiatric Psychiatric: Reports as per HPI Endocrine Endocrinology: Reports as per HPI Vital Signs Vital Signs Vital Signs: 08/16/22 08:36 Temperature 97 F L Temperature Source Temporal Pulse Rate 112 H Respiratory Rate 20 H Blood Pressure 120/69 Blood Pressure Mean 86 Blood Pressure Source Monitor Physical Exam Const alert and oriented x3 General Appearance: cooperative and anxious HEENT normocephalic Head and Scalp: normocephalic and atraumatic Eyes EOMs intact bilaterally Neck full ROM Lymph Lymphatic: no lymphedema noted Resp normal respiratory effort, normal air movement and no use of accessory muscles Resp Narrative: Wheezes on the right lung Cardio regular rate and regular rhythm Back/Spine normal ROM Extremity Extremity Narrative: +1 edema bilateral lower extremity. Skin Wound Narrative: Left groin incisional separation that tunnels at 3 o'clock along the incision line. When measuring the depth of the tunnel, there was a small amount of serous drainage. No odor, no redness or signs of infection. Neuro oriented x3 Psych mental status grossly normal and thought process normal Speech: normal speech Mood & Affect: anxious Debridement Note Debridement Note Wound debrided: groin Laterality: Left Wound Grade/Stage: Stage III Type of Debridement: Excisional debridement Anesthesia Used: 5% Lidocaine Gel Depth: Down to and including healthy tissue, in the subcutaneous layer and to muscle Percentage of wound debrided: 100 Instrument Used: 7mm curette Tissue Removed: Devitalized tissue and slough Severity: Fat Layer Exposed Amount of bleeding with debridement: Mild Bleeding Controlled with: Compression and gauze Patient tolerated procedure: Patient tolerated procedure well Post-Debridement Measurements and Additional Note: Post-Debridement Measurements/Treatment RAYSA - Nurse 1 - General Ulcer Assessment Start: 08/16/22 08:33 Freq: Status: Active Protocol: DEVIN Activity Type Activity Date Activity User E-sign Co-sign Detail Recorded Client Recorded Date Recorded By Document 08/16/22 08:36 DL [id number] 08/16/22 08:48 DL 08/16/22 08:36 RAYSA Matt Today's Visit Information Type of service Initial Visit Arrival Mode Ambulatory Transfer Assistance None Patient Identification Verified (Name & Yes ) Patient Requires Transmission-Based No Precautions Vital Signs Temperature (97.8 F-99.1 F) 97 F L Temperature Source Temporal Pulse Rate (60-100) 112 H Pulse Location Monitor Respiratory Rate (12-18) 20 H Respiratory rate source Observation Blood Pressure (90/60-120/80) 120/69 Blood Pressure Mean 86 Source Monitor Pain Scale: 0-10 Numeric Is Patient Pain Free? Yes Communication Assessment Preferred language Malay Able to Read Yes Able to Write Yes Communication Tools None Right Hearing Abillity Hard of Hearing Left Hearing Abillity Hard of Hearing Visual Assistive Devices Glasses Teaching Assessment Preferences Verbal,Written, Demonstration Barriers to Learning None Readiness To Learn Good Willingness to Engage in Self Management Med Activies Readiness to Engage in Self Management Med Activities Anxiety Level Calm Cooperation Cooperative Perception Coherent Interest in Health Problem Asks Questions Education Importance Acknowledges Need Does Patient Smoke tobacco or other Yes substances Smoking Status Current every day smoker Is Patient Diabetic No Functional Assessment Recent Decline in Ability to Perform Denies Any Declines Culture/Mormon/[employer] Cultural/Mormon Needs that may affect No Treatment Plan Would you allow our hospital spar finisher to No meet you for the purpose of spiritual/ emotional support? [employer] to contact place of rastafarian No Teaching: Wound Center Dressing Your Wound -Person Taught Patient Discharge Instructions -Person Taught Patient Control Swelling with Leg Elevation -Person Taught Patient *Welcome to the Wound Center -Person Taught Patient WC - Nurse 1 - General Ulcer Measurement Start: 08/16/22 08:33 Freq: Status: Active Protocol: Activity Type Activity Date Activity User E-sign Co-sign Detail Recorded Client Recorded Date Recorded By Document 08/16/22 08:36 DL [id number] 08/16/22 08:48 DL 08/16/22 08:36 Wound Center Nurse 1 #1 L Groin -Current Size (cm) - Length 3 -Current Size (cm) - Width 3 -Current Size (cm) - Depth 2.8 -Total Square Cm 9 -Photo Taken Yes -Undermining/Tunneling Starts (O'clock 7 ) -Undermining/Tunneling Ends (O'clock) 11 -Maximum Distance (cm) 3.2 -Exudate Amt Medium -Exudate Type Serosanguineous -Wound Margin Distinct, Outline Attached -Granulation Amt Medium (34-66%) -Granulation Quality Red -Necrosis Amt Medium (34-66%) -Necrotic Tissue Type Adherent Slough -Structure Exposed N/A -Texture (Mackenzie-wound Skin Appearance) Localized Edema ,Scarring -Moisture (Mackenzie-wound Skin Appearance) No Abnormality -Color (Mackenzie-wound Skin Appearance) No Abnormality -Temperature (Mackenzie-wound Skin No Abnormality Appearance) (Pt Warm) -Tenderness on Palpation (Mackenzie-wound No Skin Appearance) -Ulcer Cleansing Soap and Water -Foul Odor after Cleansing No -Anesthetic Used 4% Lidocaine Solution - Nurse 2 - General Ulcer CM Notes Start: 08/16/22 08:33 Freq: Status: Active Protocol: Activity Type Activity Date Activity User E-sign Co-sign Detail Recorded Client Recorded Date Recorded By Document 08/16/22 09:06 PATO [id number] 08/16/22 09:16 PATO 08/16/22 09:06 Wound Center Nurse 2 -Time 09:07 -Correct Patient Yes -Correct Side, Site, Position Yes -Correct Procedure Yes -Procedure Performed Yes -Type of Procedure Debridement -Clinical Debridement Muscle / Fascia -Tissue Removed Muscle,Fascia -Post Debridement (cm) - Length 3.0 -Post Debridement (cm) - Width 3.5 -Post Debridement (cm) - Depth 2.0 -Total Square (Post) (cm) 10.50 -Area of Debridement (cm) - Length 3.0 -Area of Debridement (cm) - Width 3.5 -Total Square (Area) (cm) 10.50 -Tunneling Yes -Tunneling Position (O'clock) 3 -Tunneling Distance (cm) 4.5 -Undermining/Tunneling No -Circular Undermining No -Wound/Ulcer Outcome Not Healed -Ulcer Cleansing Rinsed/ Irrigated with Saline -Foul Odor after Cleansing No -Bioengineered Tissue No -Bleeding Controlled with Pressure -Treatment Response Procedure Tolerated Well -Offloading No -Debridement - Muscle / Fascia, 1st Yes 20sq cm Pain Scale: 0-10 Numeric Is Patient Pain Free? Yes WC - Nurse 3 - General Ulcer D/C NN Start: 08/16/22 08:33 Freq: Status: Active Protocol: Activity Type Activity Date Activity User E-sign Co-sign Detail Recorded Client Recorded Date Recorded By Document 08/16/22 09:27 RB [id number] 08/16/22 09:27 RB 08/16/22 09:27 Wound Care Nurse 3 #1 L Groin -Primary Dressing Applied Hysept ($) -Other Dressing abd -Primary Dressing Covered/Secured with Dry Gauze, Secured with Tape Treatment Response Procedure Tolerated Well Pain Scale: 0-10 Numeric Is Patient Pain Free? Yes WC - Visit Discharge Discharge Condition Stable Ambulatory Status Ambulatory Transportation Private Auto Medication Reconcilliation completed & No provided to patient/care provider Clinical Summary of Care Provided Yes Charges/Coding Procedures Integumentary [id number]: [id number] Global Visit Assessment/Plan Assessment/Plan (1) PAOD (peripheral arterial occlusive disease): CODE(S): I77.9 - Disorder of arteries and arterioles, unspecified (2) Surgical wound dehiscence: CODE(S): T81.31XA - Disruption of external operation (surgical) wound, not elsewhere classified, initial encounter (3) Tobacco abuse: CODE(S): Z72.0 - Tobacco use (4) Anxiety: CODE(S): F41.9 - Anxiety disorder, unspecified (5) Smoking greater than 30 pack years: CODE(S): F17.210 - Nicotine dependence, cigarettes, uncomplicated (6) COPD (chronic obstructive pulmonary disease): CODE(S): J44.9 - Chronic obstructive pulmonary disease, unspecified PLAN: Plan Patient evaluated at the wound center today. Wound care - Dakin's 0.25% moistened gauze packed into the wound and tunnel, covered with ABD pad daily. May wash the area daily with soap and water. May shower daily but should avoid taking tub baths. Instructed her to brace her left groin when coughing to help with discomfort. Continue Plavix and ASA as prescribed. Follow up one week. Call or come in sooner if develop any problems or concerns.
[2022-08-29 13:56] VITALS: BP 156/76; PULSE 98; TEMP 36.4
--- NOTE | 2022-08-29 14:34 | PCM.WC.PN ---
History of Present Illness Date of Service: 08/29/22 Chief Complaint: Left groin incision separation History of Wound: Patient is a 67 year old female who presents today for further evaluation of her left groin incisional separation. She has a history of atherosclerosis pain at rest. She had surgery by Dr. Lopez on 07/19/22 for left common femoral endarterectomy, left profunda femoral endarterectomy, angioplasty and stent of left external iliac artery and left sartorius flap. She started to have left groin incisional separation last week. She had been taking tub baths and cleansing the incision with hydrogen peroxide. She also had a cold which was causing her cough more than usual with her COPD. She also had lost her inhalers, and that contributed to her coughing also. She denies fever, chills, nausea and vomiting. Progress of Wound: Left groin wound is much smaller and the tunneling at 3 o'clock is almost completly resolved. The base of the wound is pink. There is minimal swelling of the area. Objective Data Objective Data Vital Signs: Vital Signs Temp Pulse Resp BP 97.6 F L 98 20 H 156/76 H 08/29/22 13:56 08/29/22 13:56 08/16/22 08:36 08/29/22 13:56 Charges/Coding Procedures Integumentary 111xxx-113xx: 27373 Global Visit Debridement Note Debridement Note Wound debrided: groin Laterality: Left Wound Grade/Stage: Stage III Type of Debridement: Excisional debridement Anesthesia Used: 5% Lidocaine Gel Depth: Down to and including healthy tissue, in the subcutaneous layer and to muscle Percentage of wound debrided: 100 Instrument Used: 5mm curette Tissue Removed: Devitalized tissue and slough Severity: Fat Layer Exposed Amount of bleeding with debridement: Mild Bleeding Controlled with: Compression and gauze Patient tolerated procedure: Patient tolerated procedure well Post-Debridement Measurements and Additional Note: Post-Debridement Measurements/Treatment WC - Nurse 1 - General Ulcer Assessment Start: 08/16/22 08:33 Freq: Status: Active Protocol: DEVIN Activity Type Activity Date Activity User E-sign Co-sign Detail Recorded Client Recorded Date Recorded By Document 08/16/22 08:36 DL [id number] 08/16/22 08:48 DL Document 08/29/22 13:56 KR [id number] 08/29/22 13:56 KR 08/16/22 08/29/22 08:36 13:56 - Today's Visit Information Type of service Initial Visit Follow-up Visit (Physician/[employer] LAW CLERK ) Arrival Mode Ambulatory Ambulatory Transfer Assistance None Patient Identification Verified (Name & Yes Yes ) Patient Requires Transmission-Based No Precautions Vital Signs Temperature (97.8 F-99.1 F) 97 F L 97.6 F L Temperature Source Temporal Temporal Pulse Rate (60-100) 112 H 98 Pulse Location Monitor Monitor Respiratory Rate (12-18) 20 H Respiratory rate source Observation Blood Pressure (90/60-120/80) 120/69 156/76 H Blood Pressure Mean (mm Hg) 86 102 Source Monitor Monitor Position Sitting Blood Pressure Location Right Arm History Since Last Visit- (Skip if this is Patient's initial visit) Have you changed medications since your No last visit? Any new allergies or adverse reactions No Had a fall/change in ADL's that may No increase risk of falls Signs or symptoms of abuse and/or No neglect since last visit Have you been in the hospital since your No last visit? Has dressing in place as prescribed Yes Has compression in place as prescribed N/A Has offloadiing in place as prescribed N/A Experienced any changes in pain level or No management Left Footwear Regular Shoe Right Footwear Regular Shoe Pain Scale: 0-10 Numeric Is Patient Pain Free? Yes Yes Communication Assessment Preferred language Honduran Able to Read Yes Able to Write Yes Communication Tools None Right Hearing Abillity Hard of Hearing Left Hearing Abillity Hard of Hearing Visual Assistive Devices Glasses Teaching Assessment Preferences Verbal,Written, Demonstration Barriers to Learning None Readiness To Learn Good Willingness to Engage in Self Management Med Activies Readiness to Engage in Self Management Med Activities Anxiety Level Calm Cooperation Cooperative Perception Coherent Interest in Health Problem Asks Questions Education Importance Acknowledges Need Does Patient Smoke tobacco or other Yes substances Smoking Status Current every day smoker Is Patient Diabetic No Functional Assessment Recent Decline in Ability to Perform Denies Any Declines Culture/Latter-Day/Cutter Machine Tender Cultural/Latter-Day Needs that may affect No Treatment Plan Would you allow our hospital salesperson trailers and motor homes to No meet you for the purpose of spiritual/ emotional support? Cutter Machine Tender to contact place of yazidi No Teaching: Wound Center Dressing Your Wound -Person Taught Patient Discharge Instructions -Person Taught Patient Control Swelling with Leg Elevation -Person Taught Patient *Welcome to the Wound Center -Person Taught Patient WC - Nurse 1 - General Ulcer Measurement Start: 08/16/22 08:33 Freq: Status: Active Protocol: Activity Type Activity Date Activity User E-sign Co-sign Detail Recorded Client Recorded Date Recorded By Document 08/16/22 08:36 DL [id number] 08/16/22 08:48 DL Document 08/29/22 13:56 KR [id number] 08/29/22 13:56 KR 08/16/22 08/29/22 08:36 13:56 Wound Center Nurse 1 #1 L Groin -Current Size (cm) - Length 3 1.9 -Current Size (cm) - Width 3 1.7 -Current Size (cm) - Depth 2.8 0.3 -Total Square Cm 9 3.23 -Photo Taken Yes -Undermining/Tunneling Starts (O'clock 7 ) -Undermining/Tunneling Ends (O'clock) 11 -Maximum Distance (cm) 3.2 -Exudate Amt Medium Medium -Exudate Type Serosanguineous Serosanguineous -Wound Margin Distinct, Distinct, Outline Outline Attached Attached -Granulation Amt Medium (34-66%) Medium (34-66%) -Granulation Quality [place] -Necrosis Amt Medium (34-66%) Small (1-33%) -Necrotic Tissue Type Adherent Slough Adherent Slough -Structure Exposed N/A -Texture (Mackenzie-wound Skin Appearance) Localized Edema Assessed, ,Scarring Scarring -Moisture (Mackenzie-wound Skin Appearance) No Abnormality No Abnormality, Assessed -Color (Mackenzie-wound Skin Appearance) No Abnormality No Abnormality, Assessed -Temperature (Mackenzie-wound Skin No Abnormality No Abnormality Appearance) (Pt Warm) (Pt Warm) -Tenderness on Palpation (Mackenzie-wound No No Skin Appearance) -Ulcer Cleansing Soap and Water Rinsed/ Irrigated with Saline -Foul Odor after Cleansing No No -Anesthetic Used 4% Lidocaine 5% Lidocaine Solution Gel WC - Nurse 2 - General Ulcer CM Notes Start: 08/16/22 08:33 Freq: Status: Active Protocol: Activity Type Activity Date Activity User E-sign Co-sign Detail Recorded Client Recorded Date Recorded By Document 08/16/22 09:06 PATO [id number] 08/16/22 09:16 Document 08/29/22 14:23 [id number] 08/29/22 14:25 08/16/22 08/29/22 09:06 14:23 Wound Center Nurse 2 #1 L Groin -Time 09:07 14:23 -Correct Patient Yes Yes -Correct Side, Site, Position Yes Yes -Correct Procedure Yes Yes -Procedure Performed Yes Yes -Type of Procedure Debridement Debridement -Clinical Debridement Muscle / Fascia Subcutaneous -Tissue Removed Muscle,Fascia Subcutaneous -Post Debridement (cm) - Length 3.0 2.5 -Post Debridement (cm) - Width 3.5 2.7 -Post Debridement (cm) - Depth 2.0 0.7 -Total Square (Post) (cm) 10.50 6.75 -Area of Debridement (cm) - Length 3.0 2.5 -Area of Debridement (cm) - Width 3.5 2.7 -Total Square (Area) (cm) 10.50 6.75 -Tunneling Yes Yes -Tunneling Position (O'clock) 3 3 -Tunneling Distance (cm) 4.5 0.9 -Undermining/Tunneling No No -Circular Undermining No No -Wound/Ulcer Outcome Not Healed Not Healed -Ulcer Cleansing Rinsed/ Rinsed/ Irrigated with Irrigated with Saline Saline -Foul Odor after Cleansing No No -Bioengineered Tissue No No -Bleeding Controlled with Pressure Pressure -Treatment Response Procedure Procedure Tolerated Well Tolerated Well -Offloading No No -Debridement - Subq, 1st 20sq cm Yes -Debridement - Muscle / Fascia, 1st Yes 20sq cm Pain Scale: 0-10 Numeric Is Patient Pain Free? Yes Yes - Nurse 3 - General Ulcer D/C NN Start: 08/16/22 08:33 Freq: Status: Active Protocol: Activity Type Activity Date Activity User E-sign Co-sign Detail Recorded Client Recorded Date Recorded By Document 08/16/22 09:27 RB [id number] 08/16/22 09:27 RB Document 08/29/22 14:33 [facility] [id number] 08/29/22 14:34 [facility] 08/16/22 08/29/22 09:27 14:33 Wound Care Nurse 3 #1 L Groin -Ulcer Cleansing Rinsed/ Irrigated with Saline -Foul Odor after Cleansing No -Primary Dressing Applied Hysept ($) -Other Dressing abd dakins moist gauze -Primary Dressing Covered/Secured with Dry Gauze, Dry Gauze, Secured with Secured with Tape Tape -Other Covering abd ; drsg per dl manager regional Treatment Response Procedure Procedure Tolerated Well Tolerated Well Pain Scale: 0-10 Numeric Is Patient Pain Free? Yes Yes WC - Visit Discharge Discharge Condition Stable Stable Ambulatory Status Ambulatory Ambulatory Transportation Private Auto Private Auto Medication Reconcilliation completed & No provided to patient/care provider Clinical Summary of Care Provided Yes Assessment/Plan Assessment/Plan (1) PAOD (peripheral arterial occlusive disease): CODE(S): I77.9 - Disorder of arteries and arterioles, unspecified (2) Surgical wound dehiscence: CODE(S): T81.31XA - Disruption of external operation (surgical) wound, not elsewhere classified, initial encounter (3) Tobacco abuse: CODE(S): Z72.0 - Tobacco use (4) Anxiety: CODE(S): F41.9 - Anxiety disorder, unspecified (5) Smoking greater than 30 pack years: CODE(S): F17.210 - Nicotine dependence, cigarettes, uncomplicated (6) COPD (chronic obstructive pulmonary disease): CODE(S): J44.9 - Chronic obstructive pulmonary disease, unspecified PLAN: Plan Patient evaluated at the wound center today. Wound care - Dakin's 0.25% moistened gauze packed into the wound and tunnel, covered with ABD pad daily. May wash the area daily with soap and water. May shower daily but should avoid taking tub baths. Instructed her to brace her left groin when coughing to help with discomfort. Continue Plavix and ASA as prescribed. Follow up one week. Call or come in sooner if develop any problems or concerns.
[2022-09-05 14:35] VITALS: BP 180/91; PULSE 102; RESP 16; TEMP 36
--- NOTE | 2022-09-05 15:25 | PN.PCM_ITS ---
History of Present Illness Date of Service: 09/05/22 Chief Complaint: Left groin incision separation History of Wound: Patient is a 67 year old female who presents today for further evaluation of her left groin incisional separation. She has a history of atherosclerosis pain at rest. She had surgery by Dr. Lopez on 07/19/22 for left common femoral endarterectomy, left profunda femoral endarterectomy, angioplasty and stent of left external iliac artery and left sartorius flap. She started to have left groin incisional separation last week. She had been taking tub baths and cleansing the incision with hydrogen peroxide. She also had a cold which was causing her cough more than usual with her COPD. She also had lost her inhalers, and that contributed to her coughing also. She denies fever, chills, nausea and vomiting. Progress of Wound: Left groin wound is smaller and the tunneling at 3 o'clock has almost resolved. The base of the wound is pink. There is minimal swelling of the area. She states she is having increased drainage. Objective Data Objective Data Vital Signs: Vital Signs Temp Pulse Resp BP O2 Del Method 96.8 F L 102 H 16 180/91 H Room Air 09/05/22 14:35 09/05/22 14:35 09/05/22 14:35 09/05/22 14:35 09/05/22 14:35 Oxygen Delivery Method Room Air Charges/Coding Procedures Integumentary 111xxx-113xx: [id number] Global Visit Debridement Note Debridement Note Wound debrided: groin Laterality: Left Wound Grade/Stage: Stage III Type of Debridement: Excisional debridement Anesthesia Used: 5% Lidocaine Gel Depth: Down to and including healthy tissue, in the subcutaneous layer and to muscle Percentage of wound debrided: 100 Instrument Used: 5mm curette Tissue Removed: Devitalized tissue and slough Severity: Fat Layer Exposed Amount of bleeding with debridement: Mild Bleeding Controlled with: Compression and gauze Patient tolerated procedure: Patient tolerated procedure well Post-Debridement Measurements and Additional Note: Post-Debridement Measurements/Treatment RAYSA - Nurse 1 - General Ulcer Assessment Start: 08/16/22 08:33 Freq: Status: Active Protocol: DEVIN Activity Type Activity Date Activity User E-sign Co-sign Detail Recorded Client Recorded Date Recorded By Document 08/16/22 08:36 DL [id number] 08/16/22 08:48 DL Document 08/29/22 13:56 KR [id number] 08/29/22 13:56 KR Document 09/05/22 14:35 [facility] [id number] 09/05/22 14:43 BMF 08/16/22 08/29/22 09/05/22 08:36 13:56 14:35 WC - Today's Visit Information Type of service Initial Visit Follow-up Visit Follow-up Visit (Physician/TENNIS DIRECTOR (Physician/TENNIS DIRECTOR ) ) Arrival Mode Ambulatory Ambulatory Ambulatory Transfer Assistance None None Patient Identification Verified (Name & Yes Yes Yes ) Patient Requires Transmission-Based No No Precautions Vital Signs Temperature (97.8 F-99.1 F) 97 F L 97.6 F L 96.8 F L Temperature Source Temporal Temporal Temporal Pulse Rate (60-100) 112 H 98 102 H Pulse Location Monitor Monitor Monitor Respiratory Rate (12-18) 20 H 16 Respiratory rate source Observation Observation Oxygen Delivery Method Room Air Blood Pressure (90/60-120/80) 120/69 156/76 H 180/91 H Blood Pressure Mean (mm Hg) 86 102 120 Source Monitor Monitor Monitor Position Sitting Sitting Blood Pressure Location Right Arm Right Arm History Since Last Visit- (Skip if this is Patient's initial visit) Have you changed medications since your No No last visit? Any new allergies or adverse reactions No No Had a fall/change in ADL's that may No No increase risk of falls Signs or symptoms of abuse and/or No No neglect since last visit Have you been in the hospital since your No No last visit? Has dressing in place as prescribed Yes Yes Has compression in place as prescribed N/A N/A Has offloadiing in place as prescribed N/A N/A Experienced any changes in pain level or No No management Left Footwear Regular Shoe Regular Shoe Right Footwear Regular Shoe Regular Shoe Pain Scale: 0-10 Numeric Is Patient Pain Free? Yes Yes Yes Communication Assessment Preferred language Divehi Able to Read Yes Able to Write Yes Communication Tools None Right Hearing Abillity Hard of Hearing Left Hearing Abillity Hard of Hearing Visual Assistive Devices Glasses Teaching Assessment Preferences Verbal,Written, Demonstration Barriers to Learning None Readiness To Learn Good Willingness to Engage in Self Management Med Activies Readiness to Engage in Self Management Med Activities Anxiety Level Calm Cooperation Cooperative Perception Coherent Interest in Health Problem Asks Questions Education Importance Acknowledges Need Does Patient Smoke tobacco or other Yes substances Smoking Status Current every day smoker Is Patient Diabetic No Functional Assessment Recent Decline in Ability to Perform Denies Any Declines Culture/Jainism/Computer Systems Security Analyst Cultural/Jainism Needs that may affect No Treatment Plan Would you allow our [facility] marble helper to No meet you for the purpose of spiritual/ emotional support? Computer Systems Security Analyst to contact place of amish No Teaching: Wound Center Dressing Your Wound -Person Taught Patient Discharge Instructions -Person Taught Patient Control Swelling with Leg Elevation -Person Taught Patient *Welcome to the Wound Center -Person Taught Patient WC - Nurse 1 - General Ulcer Measurement Start: 08/16/22 08:33 Freq: Status: Active Protocol: Activity Type Activity Date Activity User E-sign Co-sign Detail Recorded Client Recorded Date Recorded By Document 08/16/22 08:36 DL [id number] 08/16/22 08:48 DL Document 08/29/22 13:56 KR [id number] 08/29/22 13:56 KR Document 09/05/22 14:35 [facility] [id number] 09/05/22 14:43 BMF 08/16/22 08/29/22 09/05/22 08:36 13:56 14:35 Wound Center Nurse 1 #1 L Groin -Combined with other wound No -Current Size (cm) - Length 3 1.9 2.6 -Current Size (cm) - Width 3 1.7 0.6 -Current Size (cm) - Depth 2.8 0.3 0.6 -Total Square Cm 9 3.23 1.56 -Date of Last Picture (Recall this 09/05/22 field) -Photo Taken Yes Yes -Epithelialization None Present -Tunneling No -Undermining/Tunneling Yes -Undermining/Tunneling Starts (O'clock 7 1 ) -Undermining/Tunneling Ends (O'clock) 11 6 -Maximum Distance (cm) 3.2 -Circular Undermining No -Exudate Amt Medium Medium Large -Exudate Type Serosanguineous Serosanguineous Yellow/Green -Wound Margin Distinct, Distinct, Distinct, Outline Outline Outline Attached Attached Attached -Granulation Amt Medium (34-66%) Medium (34-66%) Large (67-100%) -Granulation Quality Red [place] Pale,Red -Slough/Fibrin No -Necrosis Amt Medium (34-66%) Small (1-33%) None Present (0 %) -Necrotic Tissue Type Adherent Slough Adherent Slough -Structure Exposed N/A -Texture (Mackenzie-wound Skin Appearance) Localized Edema Assessed, Assessed, ,Scarring Scarring Scarring -Moisture (Mackenzie-wound Skin Appearance) No Abnormality No Abnormality, Assessed Assessed -Color (Mackenzie-wound Skin Appearance) No Abnormality No Abnormality, Assessed Assessed -Temperature (Mackenzie-wound Skin No Abnormality No Abnormality No Abnormality Appearance) (Pt Warm) (Pt Warm) (Pt Warm) -Tenderness on Palpation (Mackenzie-wound No No No Skin Appearance) -Ulcer Cleansing Soap and Water Rinsed/ Soap and Water Irrigated with Saline -Foul Odor after Cleansing No No No -Anesthetic Used 4% Lidocaine 5% Lidocaine 5% Lidocaine Solution Gel Gel WC - Nurse 2 - General Ulcer CM Notes Start: 08/16/22 08:33 Freq: Status: Active Protocol: Activity Type Activity Date Activity User E-sign Co-sign Detail Recorded Client Recorded Date Recorded By Document 08/16/22 09:06 [id number] 08/16/22 09:16 Document 08/29/22 14:23 [id number] 08/29/22 14:25 Document 09/05/22 15:13 [id number] 09/05/22 15:15 08/16/22 08/29/22 09/05/22 09:06 14:23 15:13 Wound Center Nurse 2 #1 L Groin -Time 09:07 14:23 15:14 -Correct Patient Yes Yes Yes -Correct Side, Site, Position Yes Yes Yes -Correct Procedure Yes Yes Yes -Procedure Performed Yes Yes Yes -Type of Procedure Debridement Debridement Incision & Drainage -Clinical Debridement Muscle / Fascia Subcutaneous Subcutaneous -Tissue Removed Muscle,Fascia Subcutaneous Subcutaneous -Post Debridement (cm) - Length 3.0 2.5 2.8 -Post Debridement (cm) - Width 3.5 2.7 1.0 -Post Debridement (cm) - Depth 2.0 0.7 0.6 -Total Square (Post) (cm) 10.50 6.75 2.80 -Area of Debridement (cm) - Length 3.0 2.5 2.8 -Area of Debridement (cm) - Width 3.5 2.7 1.0 -Total Square (Area) (cm) 10.50 6.75 2.80 -Tunneling Yes Yes No -Tunneling Position (O'clock) 3 3 -Tunneling Distance (cm) 4.5 0.9 -Undermining/Tunneling No No No -Circular Undermining No No No -Wound/Ulcer Outcome Not Healed Not Healed Not Healed -Ulcer Cleansing Rinsed/ Rinsed/ Rinsed/ Irrigated with Irrigated with Irrigated with Saline Saline Saline -Foul Odor after Cleansing No No No -Bioengineered Tissue No No No -Bleeding Controlled with Pressure Pressure Pressure -Treatment Response Procedure Procedure Procedure Tolerated Well Tolerated Well Tolerated Well -Offloading No No No -Debridement - Subq, 1st 20sq cm Yes Yes -Debridement - Muscle / Fascia, 1st Yes 20sq cm Pain Scale: 0-10 Numeric Is Patient Pain Free? Yes Yes Yes - Nurse 3 - General Ulcer D/C NN Start: 08/16/22 08:33 Freq: Status: Active Protocol: Activity Type Activity Date Activity User E-sign Co-sign Detail Recorded Client Recorded Date Recorded By Document 08/16/22 09:27 [id number] 08/16/22 09:27 Document 08/29/22 14:33 [facility] [id number] 08/29/22 14:34 [facility] 08/16/22 08/29/22 09:27 14:33 Wound Care Nurse 3 #1 L Groin -Ulcer Cleansing Rinsed/ Irrigated with Saline -Foul Odor after Cleansing No -Primary Dressing Applied Hysept ($) -Other Dressing abd dakins moist gauze -Primary Dressing Covered/Secured with Dry Gauze, Dry Gauze, Secured with Secured with Tape Tape -Other Covering abd ; drsg per dl hand ii blocker Treatment Response Procedure Procedure Tolerated Well Tolerated Well Pain Scale: 0-10 Numeric Is Patient Pain Free? Yes Yes - Visit Discharge Discharge Condition Stable Stable Ambulatory Status Ambulatory Ambulatory Transportation Private Auto Private Auto Medication Reconcilliation completed & No provided to patient/care provider Clinical Summary of Care Provided Yes Assessment/Plan Assessment/Plan (1) Non-healing surgical wound of left groin: CODE(S): T81.89XA - Other complications of procedures, not elsewhere classified, initial encounter (2) PAOD (peripheral arterial occlusive disease): CODE(S): I77.9 - Disorder of arteries and arterioles, unspecified (3) Surgical wound dehiscence: CODE(S): T81.31XA - Disruption of external operation (surgical) wound, not elsewhere classified, initial encounter (4) Tobacco abuse: CODE(S): Z72.0 - Tobacco use (5) Anxiety: CODE(S): F41.9 - Anxiety disorder, unspecified (6) Smoking greater than 30 pack years: CODE(S): F17.210 - Nicotine dependence, cigarettes, uncomplicated (7) COPD (chronic obstructive pulmonary disease): CODE(S): J44.9 - Chronic obstructive pulmonary disease, unspecified PLAN: Plan Patient evaluated at the wound center today. Wound care - [place] placed into the wound and tunnel, covered with ABD or gauze daily. May wash the area daily with soap and water. May shower daily but should avoid taking tub baths. Instructed her to brace her left groin when coughing to help with discomfort. Continue Plavix and ASA as prescribed. Follow up one week. Call or come in sooner if develop any problems or concerns.
== END 2022-09-06 23:59 | disposition home or self-care (01) ==
LOC: WC 14:30
PROVIDERS: PCP Internal Medicine; Visit Provider Nurse Practitioner Family
DX: T81.31XA Disruption of external operation (surgical) wound, not elsewhere classified, initial encounter (principal); J44.9 Chronic obstructive pulmonary disease, unspecified; I73.9 Peripheral vascular disease, unspecified; G89.29 Other chronic pain; I10 Essential (primary) hypertension; F17.210 Nicotine dependence, cigarettes, uncomplicated; E78.5 Hyperlipidemia, unspecified; I70.90 Unspecified atherosclerosis; Y83.8 Other surgical procedures as the cause of abnormal reaction of the patient, or of later complication, without mention of misadventure at the time of the procedure; Z79.899 Other long term (current) drug therapy; F41.9 Anxiety disorder, unspecified; Z79.02 Long term (current) use of antithrombotics/antiplatelets
CPT/HCPCS: 11042; 11043; 99214; G0463

== ENCOUNTER 2022-09-12 13:24 | Outpatient (RCR) | payer MEDICARE, SELFPAY ==
[2022-09-07 00:39] VITALS: BP 180/91; PULSE 102; RESP 16; TEMP 36
[2022-09-12 13:27] VITALS: BP 185/101; PULSE 109; RESP 16; TEMP 36.3
--- NOTE | 2022-09-12 14:27 | PN.PCM_ITS ---
History of Present Illness Date of Service: 09/12/22 Chief Complaint: Left groin incision separation History of Wound: Patient is a 67 year old female who presents today for further evaluation of her left groin incisional separation. She has a history of atherosclerosis pain at rest. She had surgery by Dr. Lopez on 07/19/22 for left common femoral endarterectomy, left profunda femoral endarterectomy, angioplasty and stent of left external iliac artery and left sartorius flap. She started to have left groin incisional separation last week. She had been taking tub baths and cleansing the incision with hydrogen peroxide. She also had a cold which was causing her cough more than usual with her COPD. She also had lost her inhalers, and that contributed to her coughing also. She denies fever, chills, nausea and vomiting. Progress of Wound: Left groin wound is smaller and the tunneling at 3 o'clock has almost resolved. The base of the wound is pink. She states that she sometimes has pain after changing the dressing. Patient states she slipped and fell hard on her bottom last night and she is very sore. She states she did not want to go see anyone about this. Discussed appropriate amount of Acetaminophen to take and to follow the instructions on the bottle. She denies wounds from this fall. Objective Data Objective Data Vital Signs: Vital Signs Temp Pulse Resp BP O2 Del Method 97.3 F L 109 H 16 185/101 H Room Air 09/12/22 13:27 09/12/22 13:27 09/12/22 13:27 09/12/22 13:27 09/12/22 13:27 Oxygen Delivery Method Room Air Charges/Coding Procedures Integumentary [id number]: [id number] Nely subq tissue 20 sq cm/< Debridement Note Debridement Note Wound debrided: groin Laterality: Left Wound Grade/Stage: Stage III Type of Debridement: Excisional debridement Anesthesia Used: 5% Lidocaine Gel Depth: Down to and including healthy tissue, in the subcutaneous layer and to muscle Percentage of wound debrided: 100 Instrument Used: 3mm curette Tissue Removed: Devitalized tissue and slough Severity: Fat Layer Exposed Amount of bleeding with debridement: Mild Bleeding Controlled with: Compression and gauze Patient tolerated procedure: Patient tolerated procedure well Post-Debridement Measurements and Additional Note: Post-Debridement Measurements/Treatment WC - Nurse 1 - General Ulcer Assessment Start: 09/12/22 13:27 Freq: Status: Active Protocol: DEVIN Activity Type Activity Date Activity User E-sign Co-sign Detail Recorded Client Recorded Date Recorded By Document 09/12/22 13:27 [facility] [id number] 09/12/22 13:33 [facility] 09/12/22 13:27 - Today's Visit Information Type of service Follow-up Visit (Physician/ENERGY TECHNICIAN ) Arrival Mode Ambulatory Transfer Assistance None Patient Identification Verified (Name & Yes ) Patient Requires Transmission-Based No Precautions Vital Signs Temperature (97.8 F-99.1 F) 97.3 F L Temperature Source Temporal Pulse Rate (60-100) 109 H Pulse Location Monitor Respiratory Rate (12-18) 16 Respiratory rate source Observation Oxygen Delivery Method Room Air Blood Pressure (90/60-120/80) 185/101 H Blood Pressure Mean (mm Hg) 129 Source Monitor Position Sitting Blood Pressure Location Left Arm Comment pt talking excessive w/bp check. states bp ^ when doesn 't ultram History Since Last Visit- (Skip if this is Patient's initial visit) Have you changed medications since your No last visit? Any new allergies or adverse reactions No Had a fall/change in ADL's that may Yes increase risk of falls Signs or symptoms of abuse and/or No neglect since last visit Have you been in the hospital since your No last visit? Has dressing in place as prescribed Yes Has compression in place as prescribed N/A Has offloadiing in place as prescribed N/A Experienced any changes in pain level or No management Left Footwear Regular Shoe Right Footwear Regular Shoe Pain Scale: 0-10 Numeric Is Patient Pain Free? Yes - Nurse 1 - General Ulcer Measurement Start: 09/12/22 13:27 Freq: Status: Active Protocol: Activity Type Activity Date Activity User E-sign Co-sign Detail Recorded Client Recorded Date Recorded By Document 09/12/22 13:27 [facility] [id number] 09/12/22 13:33 [facility] 09/12/22 13:27 Wound Center Nurse 1 #1 L Groin -Combined with other wound No -Current Size (cm) - Length 1.5 -Current Size (cm) - Width 0.5 -Current Size (cm) - Depth 0.4 -Total Square Cm 0.75 -Date of Last Picture (Recall this 09/12/22 field) -Photo Taken Yes -Epithelialization Medium 34-66% -Tunneling No -Undermining/Tunneling No -Circular Undermining No -Exudate Amt Small -Exudate Type Serosanguineous -Wound Margin Distinct, Outline Attached -Granulation Quality Pale,Red -Slough/Fibrin Yes -Necrosis Amt Small (1-33%) -Necrotic Tissue Type Adherent Slough -Texture (Mackenzie-wound Skin Appearance) Assessed, Scarring -Moisture (Mackenzie-wound Skin Appearance) Assessed -Color (Mackenzie-wound Skin Appearance) Assessed -Temperature (Mackenzie-wound Skin No Abnormality Appearance) (Pt Warm) -Tenderness on Palpation (Mackenzie-wound No Skin Appearance) -Ulcer Cleansing Rinsed/ Irrigated with Saline -Foul Odor after Cleansing Yes, Due to Product Use -Anesthetic Used 4% Lidocaine Solution WC - Nurse 2 - General Ulcer CM Notes Start: 09/12/22 13:27 Freq: Status: Active Protocol: Activity Type Activity Date Activity User E-sign Co-sign Detail Recorded Client Recorded Date Recorded By Document 09/12/22 13:54 [id number] 09/12/22 13:57 09/12/22 13:54 Wound Center Nurse 2 -Time 13:54 -Correct Patient Yes -Correct Side, Site, Position Yes -Correct Procedure Yes -Procedure Performed Yes -Type of Procedure Debridement -Clinical Debridement Subcutaneous -Tissue Removed Subcutaneous -Post Debridement (cm) - Length 2.0 -Post Debridement (cm) - Width 0.8 -Post Debridement (cm) - Depth 0.4 -Total Square (Post) (cm) 1.60 -Area of Debridement (cm) - Length 2.0 -Area of Debridement (cm) - Width 0.8 -Total Square (Area) (cm) 1.60 -Tunneling Yes -Tunneling Position (O'clock) 3 -Tunneling Distance (cm) 0.3 -Undermining/Tunneling No -Circular Undermining No -Wound/Ulcer Outcome Not Healed -Ulcer Cleansing Rinsed/ Irrigated with Saline -Foul Odor after Cleansing No -Bioengineered Tissue No -Bleeding Controlled with Pressure -Treatment Response Procedure Tolerated Well -Offloading No -Debridement - Subq, 1st 20sq cm Yes Pain Scale: 0-10 Numeric Is Patient Pain Free? Yes - Nurse 3 - General Ulcer D/C NN Start: 09/12/22 13:27 Freq: Status: Active Protocol: Activity Type Activity Date Activity User E-sign Co-sign Detail Recorded Client Recorded Date Recorded By Document 09/12/22 14:09 DL [id number] 09/12/22 14:10 DL 09/12/22 14:09 Wound Care Nurse 3 #1 L Groin -Ulcer Cleansing Rinsed/ Irrigated with Saline -Foul Odor after Cleansing No -Primary Dressing Applied Silvercel -Other Dressing silvercel moistened with saline -Primary Dressing Covered/Secured with Dry Gauze, Secured with Tape -Silvercel 1 Treatment Response Procedure Tolerated Well Pain Scale: 0-10 Numeric Is Patient Pain Free? Yes - Visit Discharge Discharge Condition Stable Ambulatory Status Ambulatory Transportation Private Auto Assessment/Plan Assessment/Plan (1) Non-healing surgical wound of left groin: CODE(S): T81.89XA - Other complications of procedures, not elsewhere classified, initial encounter (2) PAOD (peripheral arterial occlusive disease): CODE(S): I77.9 - Disorder of arteries and arterioles, unspecified (3) Surgical wound dehiscence: CODE(S): T81.31XA - Disruption of external operation (surgical) wound, not elsewhere classified, initial encounter (4) Tobacco abuse: CODE(S): Z72.0 - Tobacco use (5) Anxiety: CODE(S): F41.9 - Anxiety disorder, unspecified (6) Smoking greater than 30 pack years: CODE(S): F17.210 - Nicotine dependence, cigarettes, uncomplicated (7) COPD (chronic obstructive pulmonary disease): CODE(S): J44.9 - Chronic obstructive pulmonary disease, unspecified PLAN: Plan Patient evaluated at the wound center today. Wound care - Moistened Silvercel placed into the wound bed and tunnel, covered with ABD or gauze daily. May wash the area daily with soap and water. May shower daily but should avoid taking tub baths. Instructed her to brace her left groin when coughing to help with discomfort. Continue Plavix and ASA as prescribed. If she develops any issues from her fall, she is to follow up with her PCP or go to ED. Discussed appropriate dosage of Acetaminophen and how she is not to take more than 3,000 mg in a 24 hour period. Follow up one week. Call or come in sooner if develop any problems or concerns.
== END 2022-10-07 23:59 | disposition home or self-care (01) ==
LOC: WC 13:24
PROVIDERS: PCP Internal Medicine; Visit Provider Nurse Practitioner Family
DX: T81.31XA Disruption of external operation (surgical) wound, not elsewhere classified, initial encounter (principal); J44.9 Chronic obstructive pulmonary disease, unspecified; I73.9 Peripheral vascular disease, unspecified; F17.210 Nicotine dependence, cigarettes, uncomplicated; Y83.8 Other surgical procedures as the cause of abnormal reaction of the patient, or of later complication, without mention of misadventure at the time of the procedure
CPT/HCPCS: 11042

== ENCOUNTER 2022-10-04 14:36 | Emergency (ER) | payer MEDICARE, SELFPAY ==
[2022-10-04] VITALS (12 sets, daily range): BP systolic 125–151; BP diastolic 75–98; PULSE 84–128; RESP 15–20; TEMP 36.6–36.9; O2SAT 92–97; BMI 32.1
[2022-10-04 15:07] LABS: Absolute Lymphocyte Count 2.15 X10^3/uL (0.83-4.51); Absolute Neutrophil Count 7.6 X10^3/uL (2.0-7.7); Basophil# 0.02 X10^3/uL; Basophil% 0.2 % (0-1); Eosinophil# 0.13 X10^3/uL; Eosinophils% 1.2 % (0-5); Hematocrit 27.9 % (37-47); Hemoglobin 8.7 g/dL (12.0-15.0); Lymphocyte # 2.15 X10^3/ul (0.83-4.51); Lymphocyte % 19.8 % (19-41); Mean Corp Hgb Conc 31.2 g/dL (32-36); Mean Corpuscular Hgb 27.7 pg (27.0-32.0); Mean Corpuscular Volume 88.9 fL (81-99); Mean Platelet Vol. 8.8 fl (6.2-12.0); Monocyte# 0.96 X10^3/uL; Monocyte% 8.8 % (0-10); NRBC Flagged by Analyzer 0 % (0-5); Neutrophil # 7.55 X10^3/uL (2.7-7.7); Neutrophil % 69.4 % (47-70); Platelet Count 564 K/mm3 (150-450); RBC Distribution Width CV 15.9 % (11.6-14.6); RBC Distribution Width SD 52.1 fl (35.1-43.9); Red Blood Count 3.14 M/mm3 (4.2-5.4); White Blood Count 10.9 K/mm3 (4.4-11.0)
[2022-10-04 15:12] LABS: Anion Gap 6 (5-15); BUN 10 mg/dL (7-18); BUN/Creat Ratio 12.2 RATIO (10-20); Calcium,Total 8.8 mg/dL (8.5-10.1); Chloride 104 mmol/L (98-107); Creatinine, Serum 0.82 mg/dL (0.55-1.02); EST Glomerular Filtration Rate 74 mL/min (>60); Est Glom Filt Rate - Afr Amer 89 mL/min (>60); Glucose 121 mg/dL (74-106); Potassium 5.1 mmol/L (3.5-5.1); Sodium Level 136 mmol/L (136-145)
--- NOTE | 2022-10-04 15:26 | EDS_ITS ---
HPI History of Present Illness Chief Complaint: Shortness of Breath Informant: patient Onset/Context/Timing Onset: Days (8) Context: Gradual Onset Timing: Continuous Quality: Weakness Location: Generalized Worsened by: Nothing Relieved by: Nothing Narrative Narrative: Patient presents with nausea, vomiting, diarrhea, and weakness that has been getting worse over the past 8 days. Patient admits to some subjective chills. Patient states her diarrhea is watery. Patient denies any melena or hematochezia. Patient states she is unable to keep anything down. Patient states her emesis is stomach contents. Patient denies any hematemesis or coffee-ground emesis. Patient states nothing makes it better nothing makes it worse. Patient denies any chest pain. Patient admits to a mild cough and some shortness of breath. Patient states she has a history of COPD and this is typical for her. [facility] Medical History Alcohol abuse Anxiety Asthma Chronic pain Closed fracture of fifth metatarsal bone of left foot Clostridium difficile colitis COPD (chronic obstructive pulmonary disease) Diverticulitis of colon without hemorrhage Duodenal ulcer Essential hypertension Full dentures GERD (gastroesophageal reflux disease) H/O spleen injury History of cardiovascular stress test History of pelvic hematoma Hyperlipemia Hypertension Impaired fasting glucose Incisional hernia without mention of obstruction or gangrene Injury, spleen, with capsular tears Leg pain Loss of hearing Osteoarthritis Pneumohemothorax, traumatic Pseudocyst of pancreas S/P arteriogram of extremity Shortness of breath Smoker Spleen hematoma Tobacco abuse Wears glasses Home Medications atorvastatin 20 mg tablet 20 mg PO QHS cholesterol 05/28/19 [History Last Taken 12/29/19 21:00] carvedilol 25 mg tablet 25 mg PO BID BP 05/28/19 [History Last Taken 07/19/22 06:00] spironolactone 25 mg tablet 25 mg PO DAILY BP 05/28/19 [History Last Taken 12/29/19 21:00] alprazolam 0.5 mg tablet 0.5 mg PO TID ANXIETY 02/12/21 [History Last Taken 07/19/22 06:00] pantoprazole 40 mg tablet,delayed release 40 mg PO DAILY stomach 02/12/21 [History Last Taken 07/19/22 06:00] psyllium 1 packet PO DAILY constipation 05/08/21 [History Last Taken Unknown] diphenhydramine 25 mg-acetaminophen 500 mg tablet (Tylenol PM Extra Strength) 1,000 tab PO QHS PRN PRN Sleep 02/13/21 [History Last Taken Unknown] gabapentin 300 mg capsule 600 mg PO TID nerve 12/09/21 [History Last Taken 03/15/22] Lactobacillus acidophilus 20 billion cell capsule (Florajen Acidophilus) 10 mg PO DAILY SUPPLEMENT 02/13/22 [History Last Taken Unknown] cilostazol 100 mg tablet 100 mg PO BID PAD 07/14/22 [History Last Taken Unknown] clopidogrel 75 mg tablet 75 mg PO DAILY BLOOD THINNER 07/14/22 [History Last Taken Unknown] acetaminophen 500 mg tablet 1,000 mg PO Q6H PRN Pain 07/19/22 [History Last Taken 07/19/22 06:30] tramadol 50 mg tablet 50 mg PO TID PRN pain #35 tabs 09/14/22 [Rx Last Taken Unknown] sulfamethoxazole 800 mg-trimethoprim 160 mg tablet (Bactrim DS) 1 tab PO BID #14 tabs 10/03/22 [Rx Last Taken Unknown] fluticasone fur. 200 mcg-umeclid 62.5 mcg-vilant 25 mcg inhalat.powder (Trelegy Ellipta) 1 inh inhalation DAILY ASTHMA #60 ea 10/04/22 [Rx Last Taken Unknown] Allergy/AdvReac Type Severity Reaction Status Date / Time amlodipine Allergy Unknown Verified 10/04/22 14:39 clonidine Allergy Unknown Verified 10/04/22 14:39 adhesive AdvReac Rash Verified 10/04/22 14:39 codeine AdvReac Nausea Verified 10/04/22 14:39 fentanyl AdvReac Other Verified 10/04/22 14:39 Family History Mother Heart disease Hypertension Diabetes Sister Hypertension Brother Hypertension Sister Hypertension Cervical cancer Brother Pancreatic cancer Surgical History H/O colostomy H/O: History of hernia repair Hx of cervical spine surgery Social History household members: spouse housing: house Smoking Status: Current every day smoker tobacco type: cigarettes Electronic Cigarette Use: not used second hand exposure: Yes alcohol intake: current alcohol intake frequency: a few times a week substance use type: does not use caffeine: Yes what type of physical activity do you participate in: bicycling frequency: 1-2 times per week ROS ROS ED Constitutional Constitutional ED: Denies chills or fever(s) Eyes Eyes: Denies blurry vision or change in vision ENT ENT ED: Denies rhinorrhea or sore throat Cardiovascular Cardiovascular: Denies chest pain or palpitations Respiratory/Chest Respiratory/Chest: Reports cough and dyspnea Gastrointestinal Gastrointestinal: Reports abdominal pain, diarrhea, nausea and vomiting; Denies melena Genitourinary Genitourinary ED: Denies dysuria or hematuria Musculoskeletal Musculoskeletal: Reports back pain; Denies neck pain Integumentary Denies abscess or rash Neurologic Neurologic: Reports weakness; Denies headache(s) Allergic/Immunologic Allergic/Immunologic ED: Denies mouth swelling or urticaria EXAM Physical Exam Const Vital Signs: 10/04/22 14:37 10/04/22 16:37 10/04/22 14:40 Temperature 97.8 F Temperature Source Temporal Pulse Rate 128 H Pulse Rate [Lying] Pulse Rate [Sitting (for 1 minute prior to obtaining)] Respiratory Rate 20 H Respiratory Effort Short of Breath Respiratory Depth Normal Respiratory Pattern Tachypnea Blood Pressure 151/98 H Blood Pressure [Lying] Blood Pressure [Sitting (for 1 minute prior to obtaining)] Blood Pressure Mean 115 Blood Pressure Mean [Lying] Blood Pressure Mean [Sitting (for 1 minute prior to obtaining)] Pulse Ox 94 92 Oxygen Delivery Method Room Air Room Air Room Air 10/04/22 14:40 10/04/22 16:45 10/04/22 16:48 Temperature Temperature Source Pulse Rate Pulse Rate [Lying] 117 H Pulse Rate [Sitting (for 1 minute prior to obtaining)] 124 H Respiratory Rate 20 H Respiratory Effort Respiratory Depth Respiratory Pattern Blood Pressure Blood Pressure [Lying] 125/88 H Blood Pressure [Sitting (for 1 minute prior to obtaining)] 149/94 H Blood Pressure Mean Blood Pressure Mean [Lying] 100 Blood Pressure Mean [Sitting (for 1 minute prior to obtaining)] 112 Pulse Ox 92 Oxygen Delivery Method Room Air 10/04/22 14:39 10/04/22 15:39 10/04/22 16:39 Temperature 98.1 F 98.3 F 98.4 F Temperature Source Temporal Temporal Temporal Pulse Rate 114 H 128 H 120 H Pulse Rate [Lying] Pulse Rate [Sitting (for 1 minute prior to obtaining)] Respiratory Rate 18 16 18 Respiratory Effort Respiratory Depth Respiratory Pattern Blood Pressure 139/89 H 143/83 H 149/84 H Blood Pressure [Lying] Blood Pressure [Sitting (for 1 minute prior to obtaining)] Blood Pressure Mean 105 103 105 Blood Pressure Mean [Lying] Blood Pressure Mean [Sitting (for 1 minute prior to obtaining)] Pulse Ox 92 92 92 Oxygen Delivery Method Room Air Room Air Room Air 10/04/22 17:00 10/04/22 16:52 10/04/22 19:00 Temperature Temperature Source Pulse Rate 119 H 128 H Pulse Rate [Lying] Pulse Rate [Sitting (for 1 minute prior to obtaining)] 128 H Respiratory Rate 16 18 Respiratory Effort Respiratory Depth Respiratory Pattern Blood Pressure 134/82 H 128/75 H Blood Pressure [Lying] Blood Pressure [Sitting (for 1 minute prior to obtaining)] 149/89 H Blood Pressure Mean 99 92 Blood Pressure Mean [Lying] Blood Pressure Mean [Sitting (for 1 minute prior to obtaining)] 109 Pulse Ox 92 92 Oxygen Delivery Method Room Air Room Air Positive well nourished and well developed General Appearance ED: well developed and NAD HEENT Reports moist mucous membranes Neck supple and no JVD Resp normal respiratory effort Auscultation: wheezes scattered wheezes Cardio regular rate, regular rhythm and no murmurs GI normal to inspection, nondistended, normoactive bowel sounds Palpation: soft and tender epigastric, LLQ, RLQ, LUQ, RUQ, periumbilical and suprapubic; Negative for guarding or rebound tenderness present Extremity normal to inspection General Extremety ED: Negative for edema or tenderness General Extremity: Negative for edema Neuro oriented x3, CN's II-XII intact bilaterally and no sensory deficits noted Sensorium / Orientation: alert Motor Exam: strength 5/5 throughout Psych mental status grossly normal Skin no rashes or lesions noted MDM MDM MDM Narrative Medical decision making narrative: Patient was given IV fluids. CBC shows a mild anemia with a hemoglobin of 8.7 and hematocrit 27.9. Basic metabolic profile was within normal limits. Lipase was normal. Urinalysis does not show any evidence of urinary tract infection. CT scan of the abdomen pelvis was obtained. There are some inflammatory changes in the left inguinal area. There is no evidence of any abscess. There is no evidence of pseudoaneurysm. This was interpreted by the radiologist and reviewed by myself. Patient feels better on reevaluation. Patient was instructed to follow-up with her primary care physician in 5 to 7 days. Patient was also instructed to follow-up with her vascular surgeon as scheduled. Patient understood and was agreeable with the plan. All questions were answered. Lab Data Attestation: I reviewed the patient's lab results. Labs: Laboratory Results - last 24 hr 10/04/22 10/04/22 10/04/22 14:52 14:52 14:52 WBC 10.9 RBC 3.14 L Hgb 8.7 L Hct 27.9 L MCV 88.9 MCH 27.7 MCHC 31.2 L RDW Std Deviation 52.1 H RDW Coeff of Renea 15.9 H Plt Count 564 H MPV 8.8 Immature Gran % (Auto) 0.600 Neut % (Auto) 69.4 Lymph % (Auto) 19.8 [place] % (Auto) 8.8 Eos % (Auto) 1.2 Baso % (Auto) 0.2 Absolute Neuts (auto) 7.6 Absolute Lymphs (auto) 2.15 Nucleated RBC % 0 Sodium 136 Potassium 5.1 Chloride 104 Carbon Dioxide 26.0 Anion Gap 6 BUN 10 Creatinine 0.82 Estim Creat Clear Calc 75.80 Est GFR (MDRD) Af Amer 89 Est GFR (MDRD) Non-Af 74 BUN/Creatinine Ratio 12.2 Glucose 121 H Calcium 8.8 Lipase 169 Urine Color Urine Clarity Urine pH Ur Specific [place] Urine Protein Urine Glucose (UA) Urine Ketones Urine Occult Blood Urine Nitrite Urine Bilirubin Urine Urobilinogen Ur Leukocyte Esterase Urine RBC Urine WBC Ur Squamous Epith Cells Urine Bacteria Urine Mucus 10/04/22 18:45 WBC RBC Hgb Hct MCV MCH MCHC RDW Std Deviation RDW Coeff of Renea Plt Count MPV Immature Gran % (Auto) Neut % (Auto) Lymph % (Auto) [place] % (Auto) Eos % (Auto) Baso % (Auto) Absolute Neuts (auto) Absolute Lymphs (auto) Nucleated RBC % Sodium Potassium Chloride Carbon Dioxide Anion Gap BUN Creatinine Estim Creat Clear Calc Est GFR (MDRD) Af Amer Est GFR (MDRD) Non-Af BUN/Creatinine Ratio Glucose Calcium Lipase Urine Color Straw Urine Clarity Clear Urine pH 7.0 Ur Specific [place] 1.005 Urine Protein Negative Urine Glucose (UA) Normal Urine Ketones Negative Urine Occult Blood Negative Urine Nitrite Negative Urine Bilirubin Negative Urine Urobilinogen Normal Ur Leukocyte Esterase Negative Urine RBC 0 SEEN Urine WBC 0 SEEN Ur Squamous Epith Cells 0 SEEN Urine Bacteria 0 SEEN Urine Mucus 0 SEEN Radiography Diagnostic Testing: Clinical Impression(s) from Imaging Studies Abdomen/Pelvis CT 10/04/22 15:32 IMPRESSION: Left groin inflammatory stranding without contrast extravasation, pseudoaneurysm, or drainable fluid collection. No other acute abnormal finding in the abdomen or pelvis. Electronically Signed: Chris Lazo MD at 18:08 EST , Discharge Plan Triage Chief Complaint: Shortness of Breath ED Provider: Alec Dixon Dx/Rx/DC Orders Clinical Impression: Left groin pain, Nausea vomiting and diarrhea, General weakness Instructions: ED Weakness (Uncertain Cause), ED Vomiting and Diarrhea ... Prescriptions: No Action Florajen Acidophilus 20 billion cell capsule 10 mg PO DAILY tramadol 50 mg tablet 50 mg PO TID PRN (Reason: pain) Qty: 35 0RF carvedilol 25 MG tablet 25 mg PO BID Label Comments: BP atorvastatin 20 MG tablet 20 mg PO QHS Label Comments: cholesterol spironolactone 25 MG tablet 25 mg PO DAILY alprazolam 0.5 mg tablet 0.5 mg PO TID psyllium Packet 1 packet PO DAILY pantoprazole 40 mg Tablet,Delayed Release (Dr/Ec) 40 mg PO DAILY diphenhydramine-acetaminophen [Tylenol PM Extra Strength] 25-500 mg Tablet 1,000 tab PO QHS PRN PRN (Reason: Sleep) gabapentin 300 mg capsule 600 mg PO TID Label Comments: TAKE 2 CAPSULES BY MOUTH DAILY AT BEDTIME FOR 180 DAYS. cilostazol 100 mg tablet 100 mg PO BID clopidogrel 75 mg tablet 75 mg PO DAILY acetaminophen 500 mg Tablet 1,000 mg PO Q6H PRN (Reason: Pain) sulfamethoxazole-trimethoprim [Bactrim DS] 800-160 mg tablet 1 tab PO BID Qty: 14 0RF Trelegy Ellipta 200-62.5-25 mcg blister with device 1 inh inhalation DAILY Qty: 60 11RF Primary Care Provider: Nate Gray Referrals: Alec Lopez MD [Med Staff - Active Staff] - Keep Raúl appointment Nate Gray MD [Primary Care Provider] - 5-7 Days Disposition Disposition: Home, Self Care
--- NOTE | 2022-10-04 15:32 | CT_ITS ---
INDICATION: Abdominal pain, weakness x 8 days, left groin pain, cough, wheezing. EXAMINATION: CT ABDOMEN AND PELVIS WITH CONTRAST - CT Abdomen And Pelvis W/ Contrast Injection TECHNIQUE: Helically acquired images were obtained of the abdomen and pelvis following IV contrast. A radiation dose optimization technique was used for this scan. IV Contrast dosage and agent: 100 cc [id number]-370 Oral contrast: Gastrografin COMPARISON: 06/28/2022 FINDINGS: LOWER CHEST: Mild bilateral lung base atelectasis/scarring. No cardiomegaly or pericardial effusion. LIVER: Homogeneous. No focal mass. GALLBLADDER AND BILIARY TREE: No calcified gallstones. No gallbladder distension or wall edema. No intra- or extrahepatic biliary ductal dilation. PANCREAS: No focal cystic or solid mass. SPLEEN: Normal size without focal cystic or solid mass. ADRENAL GLANDS: No nodules. KIDNEYS AND URETERS: Normal renal size and position. No hydronephrosis. PERITONEUM: No ascites or free air. No other fluid collection. BOWEL: Prior appendectomy. No stomach or bowel distension. No focal inflammatory change. LYMPH NODES: No enlarged mesenteric or retroperitoneal lymph nodes. VESSELS: Interval placement of left external iliac stent graft. Aorta is non-dilated. Redemonstrated right external iliac stent and splenic artery coils. URINARY BLADDER: Unremarkable. REPRODUCTIVE ORGANS: No pelvic masses. ABDOMINAL WALL: Left groin inflammatory stranding with associated surgical clips are new compared to 06/28/2022. No associated extravasation, pseudoaneurysm, or encapsulated fluid collection. No enlarged left groin lymph nodes. Ventral hernia repair mesh redemonstrated. BONES: Normal thoracolumbar vertebral alignment. CT/Abdomen/Pelvis WITH Contrast IMPRESSION: Left groin inflammatory stranding without contrast extravasation, pseudoaneurysm, or drainable fluid collection. No other acute abnormal finding in the abdomen or pelvis. Electronically Signed: Chris Lazo MD at 18:08 EST ,
[2022-10-04 15:52] LABS: Lipase 169 U/L (73-393)
[2022-10-04] MEDS: 0.9% Normal Saline 1,000 ML 1000 ML IV (16:34)
[2022-10-04 18:51] LABS: Bacteria 0 SEEN /hpf (None Seen); Color, Urine Straw (Yellow); Glucose, Dipstick Normal (Normal); Ketone-Dipstick Negative (Negative); Leukocyte Esterase-Dipstick Negative /ul (Negative); Mucous, Urine 0 SEEN /hpf (<or=2+); Nitrite-Dipstick Negative (Negative); Occult Blood-Urine Negative /ul (Negative); Protein-Dipstick Negative (Negative); Red Blood Cells-Urine 0 SEEN /hpf (0-5); Specific Gravity, Urine 1.005 (1.002-1.030); Squamous Epithelial Cells - UA 0 SEEN /hpf (5-10); Urine Bilirubin Dipstick Negative (Negative); Urine Clarity Clear (Clear); Urine Urobilinogen Normal (Normal); White Blood Cells 0 SEEN /hpf (0-5)
== END 2022-10-04 20:06 | disposition home or self-care (01) ==
PROVIDERS: Emergency Provider Emergency Medicine; PCP Internal Medicine; Visit Provider Emergency Medicine
DX: R10.32 Left lower quadrant pain (principal); R11.2 Nausea with vomiting, unspecified; R19.7 Diarrhea, unspecified; R53.1 Weakness; E78.5 Hyperlipidemia, unspecified; F17.210 Nicotine dependence, cigarettes, uncomplicated; I10 Essential (primary) hypertension; Z79.899 Other long term (current) drug therapy; Z79.01 Long term (current) use of anticoagulants
CPT/HCPCS: 74177; 80048; 81001; 83690; 85025; 87428; 94760; 96360; 99284; J7030; Q9967; A4216

== ENCOUNTER 2022-10-09 10:24 | Inpatient (IN) | payer MEDICARE, SELFPAY ==
[2022-10-09] VITALS (24 sets, daily range): BP systolic 117–173; BP diastolic 60–85; PULSE 87–120; RESP 14–25; TEMP 36.6–37.2; O2SAT 86–100; BMI 36.3; BMI 33.3
--- NOTE | 2022-10-09 11:10 | EKG12_ITS ---
Test Reason : SOB Blood Pressure : / mmHG Vent. Rate : 085 BPM Atrial Rate : 085 BPM P-R Int : 166 ms QRS Dur : 078 ms QT Int : 388 ms P-R-T Axes : 048 063 049 degrees QTc Int : 461 ms Normal sinus rhythm Low voltage QRS Borderline ECG Confirmed by NANCI KULKARNI, CAROLE ([id number]), mapping editor DRISS GOMEZ ([id number]) on 10/10/2022 1:09:46 PM Referred By: Confirmed By:CAROLE CHRISTINE MD
--- NOTE | 2022-10-09 11:10 | RAD_ITS ---
EXAM: XR CHEST, 1 VIEW CLINICAL INDICATION: cough TECHNIQUE: Frontal view of the chest. This report was created using [employer] report generation technology. COMPARISON: XR Chest dated 07/17/2022 FINDINGS: LUNGS AND PLEURAL SPACES: Normal. No consolidation or edema. No pneumothorax. No effusion. HEART: Normal heart size. MEDIASTINUM: No mediastinal or hilar mass. BONES/JOINTS: Chronic left rib fractures again noted. SOFT TISSUES: Normal. RAD/Chest 1 View (Portable) IMPRESSION: No acute cardiopulmonary abnormality. No interval change. Electronically Signed: Gustavo Vila MD at 12:00 EST ,
[2022-10-09] MEDS: MethylPREDNISolone 125 MG/2 ML Vial IV (11:20)
[2022-10-09] MEDS: Albuterol 2.5 MG/3 ML VIAL.NEB. INHALATION ×2 (11:41→14:48)
[2022-10-09] MEDS: Ipratropium/Albuterol Sulfate 3 ML AMPUL.NEB INHALATION ×2 (11:41→19:23)
[2022-10-09 11:43] LABS: Absolute Lymphocyte Count 1.69 X10^3/uL (0.83-4.51); Absolute Neutrophil Count 7.2 X10^3/uL (2.0-7.7); Basophil# 0.03 X10^3/uL; Basophil% 0.3 % (0-1); Eosinophil# 0.11 X10^3/uL; Eosinophils% 1.1 % (0-5); Hematocrit 23.4 % (37-47); Hemoglobin 7.4 g/dL (12.0-15.0); Lymphocyte # 1.69 X10^3/ul (0.83-4.51); Lymphocyte % 17.1 % (19-41); Mean Corp Hgb Conc 31.6 g/dL (32-36); Mean Corpuscular Hgb 27.2 pg (27.0-32.0); Mean Platelet Vol. 8.8 fl (6.2-12.0); Monocyte# 0.82 X10^3/uL; Monocyte% 8.3 % (0-10); NRBC Flagged by Analyzer 0 % (0-5); Neutrophil # 7.22 X10^3/uL (2.7-7.7); Neutrophil % 72.8 % (47-70); Platelet Count 575 K/mm3 (150-450); RBC Distribution Width CV 16.4 % (11.6-14.6); Red Blood Count 2.72 M/mm3 (4.2-5.4); White Blood Count 9.9 K/mm3 (4.4-11.0)
--- NOTE | 2022-10-09 11:43 | EDS_ITS ---
HPI History of Present Illness Chief Complaint: Shortness of Breath Narrative Narrative: 67-year-old female presenting with shortness of breath, cough for the last 3 days. She feels generally weak. She states she can barely get around her house. She noted that her oxygen was 84% when she woke up this morning. She does not typically have to wear oxygen. She does have a history of COPD. She states he has been trying to quit smoking. She states she rolls up her own cigarettes at home. She states he started at a half a pack of cigarettes per day and every few days she decreases by 1 cigarette. She reports that she is down to 6 cigarettes a day. She states that her albuterol inhaler no longer is working for her. She has not had a fever at home. She denies chest pain. [facility] Medical History Alcohol abuse Anxiety Asthma Chronic pain Closed fracture of fifth metatarsal bone of left foot Clostridium difficile colitis COPD (chronic obstructive pulmonary disease) Diverticulitis of colon without hemorrhage Duodenal ulcer Essential hypertension Full dentures GERD (gastroesophageal reflux disease) H/O spleen injury History of cardiovascular stress test History of pelvic hematoma Hyperlipemia Hypertension Impaired fasting glucose Incisional hernia without mention of obstruction or gangrene Injury, spleen, with capsular tears Leg pain Loss of hearing Osteoarthritis Pneumohemothorax, traumatic Pseudocyst of pancreas S/P arteriogram of extremity Shortness of breath Smoker Spleen hematoma Tobacco abuse Wears glasses Home Medications atorvastatin 20 mg tablet 20 mg PO QHS cholesterol 05/28/19 [History Last Taken 10/08/22] carvedilol 25 mg tablet 25 mg PO BID BP 05/28/19 [History Last Taken 10/08/22] spironolactone 25 mg tablet 25 mg PO DAILY BP 05/28/19 [History Last Taken 10/08/22] alprazolam 0.5 mg tablet 0.5 mg PO TID ANXIETY 02/12/21 [History Last Taken 10/08/22] pantoprazole 40 mg tablet,delayed release 40 mg PO DAILY stomach 02/12/21 [History Last Taken 10/08/22] psyllium 1 packet PO DAILY constipation 02/12/21 [History Last Taken Unknown] diphenhydramine 25 mg-acetaminophen 500 mg tablet (Tylenol PM Extra Strength) 1,000 tab PO QHS PRN PRN Sleep 02/13/21 [History Last Taken Unknown] gabapentin 300 mg capsule 600 mg PO TID nerve 12/09/21 [History Last Taken 10/30] Lactobacillus acidophilus 20 billion cell capsule (Florajen Acidophilus) 10 mg PO DAILY SUPPLEMENT 02/13/22 [History Last Taken 10/08/22] cilostazol 100 mg tablet 100 mg PO BID PAD 07/14/22 [History Last Taken 2 Days Ago ~10/07/22] clopidogrel 75 mg tablet 75 mg PO DAILY BLOOD THINNER 07/14/22 [History Last Taken 10/08/22] acetaminophen 500 mg tablet 1,000 mg PO Q6H PRN Pain 07/19/22 [History Last Taken 10/08/22] fluticasone fur. 200 mcg-umeclid 62.5 mcg-vilant 25 mcg inhalat.powder (Trelegy Ellipta) 1 inh inhalation DAILY ASTHMA #60 ea 10/04/22 [Rx Last Taken 10/08/22] sulfamethoxazole 800 mg-trimethoprim 160 mg tablet (Bactrim DS) 1 tab PO BID infection 10/09/22 [History Last Taken 10/09/22] Allergy/AdvReac Type Severity Reaction Status Date / Time amlodipine Allergy Unknown Verified 10/09/22 10:28 clonidine Allergy Unknown Verified 10/09/22 10:28 adhesive AdvReac Rash Verified 10/09/22 10:28 codeine AdvReac Nausea Verified 10/09/22 10:28 fentanyl AdvReac Other Verified 10/09/22 10:28 Family History Mother Heart disease Hypertension Diabetes Sister Hypertension Brother Hypertension Sister Hypertension Cervical cancer Brother Pancreatic cancer Surgical History H/O colostomy H/O: History of hernia repair Hx of cervical spine surgery Social History household members: spouse housing: house Smoking Status: Current every day smoker tobacco type: cigarettes Electronic Cigarette Use: not used second hand exposure: Yes alcohol intake: current alcohol intake frequency: a few times a week substance use type: does not use caffeine: Yes what type of physical activity do you participate in: bicycling frequency: 1-2 times per week ROS ROS ED Constitutional Constitutional ED: Denies chills or fever(s) Eyes Eyes: Denies blurry vision or change in vision ENT ENT ED: Denies rhinorrhea or sore throat Cardiovascular Cardiovascular: Denies chest pain or palpitations Respiratory/Chest Respiratory/Chest: Reports cough, dyspnea and dyspnea on exertion Gastrointestinal Gastrointestinal: Denies abdominal pain, nausea or vomiting Genitourinary Genitourinary ED: Denies dysuria or hematuria Musculoskeletal Musculoskeletal: Denies arthralgias Integumentary Denies abscess Neurologic Neurologic: Denies headache(s) or paresthesias Psychiatric Psychiatric: Denies anxiety or depression EXAM Physical Exam Const Vital Signs: 10/09/22 10:25 10/09/22 10:42 10/09/22 10:42 Temperature 98 F Temperature Source Temporal Pulse Rate 96 Respiratory Rate 20 H Respiratory Effort Non-Labored Labored Blood Pressure 153/71 H Blood Pressure Mean 98 Pulse Ox 93 96 Oxygen Delivery Method Room Air Room Air Room Air Oxygen Flow Rate (L/min) 10/09/22 10:28 10/09/22 11:28 10/09/22 11:42 Temperature 97.9 F 98.0 F Temperature Source Temporal Temporal Pulse Rate 88 91 Respiratory Rate 24 H 20 H Respiratory Effort Blood Pressure 123/76 H 142/60 H Blood Pressure Mean 91 87 Pulse Ox 93 93 86 Oxygen Delivery Method Room Air Nasal Cannula Room Air Oxygen Flow Rate (L/min) 2 10/09/22 11:42 10/09/22 11:43 10/09/22 12:44 Temperature Temperature Source Pulse Rate 88 88 Respiratory Rate 18 14 Respiratory Effort Blood Pressure 119/71 Blood Pressure Mean 87 Pulse Ox 98 Oxygen Delivery Method Nasal Cannula Oxygen Flow Rate (L/min) 2 10/09/22 12:00 10/09/22 13:00 10/09/22 13:21 Temperature 98.2 F 98.1 F Temperature Source Temporal Temporal Pulse Rate 87 95 Respiratory Rate 14 25 H Respiratory Effort Blood Pressure 119/71 145/80 H Blood Pressure Mean 87 101 Pulse Ox 97 96 92 Oxygen Delivery Method Nasal Cannula Nasal Cannula Nasal Cannula Oxygen Flow Rate (L/min) 2 2 2 10/09/22 14:00 10/09/22 14:47 10/09/22 15:20 Temperature 97.9 F 98.6 F Temperature Source Temporal Temporal Pulse Rate 107 H 95 106 H Respiratory Rate 25 H 17 25 H Respiratory Effort Blood Pressure 132/64 H 131/85 H Blood Pressure Mean 86 100 Pulse Ox 92 91 Oxygen Delivery Method Nasal Cannula Nasal Cannula Oxygen Flow Rate (L/min) 2 5 10/09/22 15:00 Temperature 98.6 F Temperature Source Temporal Pulse Rate 107 H Respiratory Rate 25 H Respiratory Effort Blood Pressure 131/85 H Blood Pressure Mean 100 Pulse Ox 91 Oxygen Delivery Method Nasal Cannula Oxygen Flow Rate (L/min) 5 Positive well nourished General Appearance ED: NAD HEENT Reports moist mucous membranes atraumatic Eyes PERRL and EOMs intact bilaterally Neck no lymphadenopathy and supple Resp Auscultation: wheezes throughout Cardio regular rate and regular rhythm Neuro oriented x3 and CN's II-XII intact bilaterally Sensorium / Orientation: alert, oriented to person, oriented to place and oriented to time Speech: speech normal Motor Exam: general weakness Psych mental status grossly normal Skin no wounds MDM MDM MDM Narrative Medical decision making narrative: Patient presenting with shortness of breath. She has wheezing on exam and she is given Solu-Medrol and breathing treatments. I did obtain an EKG to assess for dysrhythmia and on my interpretation this is a normal sinus rhythm with a ventricular rate of 89 bpm with occasional PACs. Chest x-ray is obtained due to shortness of breath and on my interpretation this shows no acute cardiopulmonary process. CBC was obtained to assess for elevated white blood cell count and to check her hemoglobin levels. It does show that her hemoglobin level is low today at 7.4. It appears this has been trending downward. Patient has a history of duodenal ulcer. She denies any black or bloody stools. She denies black or bloody emesis. She still feeling short of breath after treatments. She was 87% on room air. She has now been turned up to 5 L. She is 91%. P atient was typed and screened. Hemoccult was obtained and is positive. BMP shows a creatinine 1.26 which is slightly elevated over previous. Her electrolytes are unremarkable. High-sensitivity troponin returned at 5. Urinalysis negative for infection. Discussed with the hospitalist for admission. She recommended viral respiratory panel which was obtained. Her rapid COVID and influenza were negative. Patient was also given 40 mg of Protonix. Impression: 1. Acute blood loss anemia 2. GI bleed 3. COPD exacerbation 4. Generalized weakness Lab Data Labs: Laboratory Results - last 24 hr 10/09/22 10/09/22 10/09/22 11:00 11:00 11:45 WBC 9.9 RBC 2.72 L Hgb 7.4 L Hct 23.4 L MCV 86.0 MCH 27.2 MCHC 31.6 L RDW Std Deviation 51.0 H RDW Coeff of Renea 16.4 H Plt Count 575 H MPV 8.8 Immature Gran % (Auto) 0.400 Neut % (Auto) 72.8 H Lymph % (Auto) 17.1 L Emmet % (Auto) 8.3 Eos % (Auto) 1.1 Baso % (Auto) 0.3 Absolute Neuts (auto) 7.2 Absolute Lymphs (auto) 1.69 Nucleated RBC % 0 Sodium 134 L Potassium 5.0 Chloride 104 Carbon Dioxide 25.0 Anion Gap 5 BUN 20 H Creatinine 1.26 H Estim Creat Clear Calc 55.84 Est GFR (MDRD) Af Amer 54 L Est GFR (MDRD) Non-Af 45 L BUN/Creatinine Ratio 15.9 Glucose 110 H Calcium 8.7 Troponin I High Sens 5 Urine Color Yellow Urine Clarity Sl. Cloudy Urine pH 7.0 Ur Specific [place] 1.005 Urine Protein Negative Urine Glucose (UA) Normal Urine Ketones Negative Urine Occult Blood Negative Urine Nitrite Negative Urine Bilirubin Negative Urine Urobilinogen Normal Ur Leukocyte Esterase Negative Urine RBC 0 SEEN Urine WBC 0 SEEN Ur Squamous Epith Cells 0-5 SEEN Urine Bacteria 0 SEEN Urine Mucus 0 SEEN Blood Type Antibody Screen 10/09/22 11:50 WBC RBC Hgb Hct MCV MCH MCHC RDW Std Deviation RDW Coeff of Renea Plt Count MPV Immature Gran % (Auto) Neut % (Auto) Lymph % (Auto) Emmet % (Auto) Eos % (Auto) Baso % (Auto) Absolute Neuts (auto) Absolute Lymphs (auto) Nucleated RBC % Sodium Potassium Chloride Carbon Dioxide Anion Gap BUN Creatinine Estim Creat Clear Calc Est GFR (MDRD) Af Amer Est GFR (MDRD) Non-Af BUN/Creatinine Ratio Glucose Calcium Troponin I High Sens Urine Color Urine Clarity Urine pH Ur Specific [place] Urine Protein Urine Glucose (UA) Urine Ketones Urine Occult Blood Urine Nitrite Urine Bilirubin Urine Urobilinogen Ur Leukocyte Esterase Urine RBC Urine WBC Ur Squamous Epith Cells Urine Bacteria Urine Mucus Blood Type A POSITIVE Antibody Screen NEGATIVE Radiography Diagnostic Testing: Clinical Impression(s) from Imaging Studies Chest X-Ray 10/09/22 11:10 IMPRESSION: No acute cardiopulmonary abnormality. No interval change. Electronically Signed: Gustavo Vila MD at 12:00 EST Reading Location ID and State: [address] [place] [address] Tel , Service support , Discharge Plan Triage Chief Complaint: Shortness of Breath ED Provider: Ebenezer Roberts Dx/Rx/DC Orders Prescriptions: No Action Florajen Acidophilus 20 billion cell capsule 10 mg PO DAILY carvedilol 25 MG tablet 25 mg PO BID Label Comments: BP atorvastatin 20 MG tablet 20 mg PO QHS Label Comments: cholesterol spironolactone 25 MG tablet 25 mg PO DAILY alprazolam 0.5 mg tablet 0.5 mg PO TID psyllium Packet 1 packet PO DAILY pantoprazole 40 mg Tablet,Delayed Release (Dr/Ec) 40 mg PO DAILY diphenhydramine-acetaminophen [Tylenol PM Extra Strength] 25-500 mg Tablet 1,000 tab PO QHS PRN PRN (Reason: Sleep) gabapentin 300 mg capsule 600 mg PO TID Label Comments: TAKE 2 CAPSULES BY MOUTH DAILY AT BEDTIME FOR 180 DAYS. cilostazol 100 mg tablet 100 mg PO BID clopidogrel 75 mg tablet 75 mg PO DAILY acetaminophen 500 mg Tablet 1,000 mg PO Q6H PRN (Reason: Pain) sulfamethoxazole-trimethoprim [Bactrim DS] 800-160 mg tablet 1 tab PO BID Trelegy Ellipta 200-62.5-25 mcg blister with device 1 inh inhalation DAILY Qty: 60 11RF Primary Care Provider: Nate Gray Referrals: Nate Gray MD [Primary Care Provider] -
[2022-10-09 11:58] LABS: Anion Gap 5 (5-15); BUN 20 mg/dL (7-18); BUN/Creat Ratio 15.9 RATIO (10-20); Calcium,Total 8.7 mg/dL (8.5-10.1); Chloride 104 mmol/L (98-107); Creatinine, Serum 1.26 mg/dL (0.55-1.02); EST Glomerular Filtration Rate 45 mL/min (>60); Est Glom Filt Rate - Afr Amer 54 mL/min (>60); Estimated Creatinine Clearance 55.84 ml/min; Glucose 110 mg/dL (74-106); Sodium Level 134 mmol/L (136-145); Troponin-I HS 5 pg/mL (3.0-54.0)
[2022-10-09 12:01] LABS: Bacteria 0 SEEN /hpf (None Seen); Mucous, Urine 0 SEEN /hpf (<or=2+); Red Blood Cells-Urine 0 SEEN /hpf (0-5); White Blood Cells 0 SEEN /hpf (0-5)
[2022-10-09 12:08] LABS: Color, Urine Yellow (Yellow); Glucose, Dipstick Normal (Normal); Ketone-Dipstick Negative (Negative); Leukocyte Esterase-Dipstick Negative /ul (Negative); Nitrite-Dipstick Negative (Negative); Occult Blood-Urine Negative /ul (Negative); Protein-Dipstick Negative (Negative); Specific Gravity, Urine 1.005 (1.002-1.030); Urine Bilirubin Dipstick Negative (Negative); Urine Clarity Sl. Cloudy (Clear); Urine Urobilinogen Normal (Normal)
[2022-10-09 12:15] LABS: Squamous Epithelial Cells - UA 0-5 SEEN /hpf (5-10)
--- NOTE | 2022-10-09 15:06 | NURSING ---
MED SURG GI BLEED [facility]
--- NOTE | 2022-10-09 15:33 | NURSING ---
MED SURG [facility] GI BLEED
--- NOTE | 2022-10-09 16:37 | HP.PCM.HOS_ITS ---
HPI - General General Date of Admission: 10/09/22 Date of Service: 10/09/22 Chief Complaint: Shortness of breath HPI Narrative BAHMAN MICHELE, is a 67 F who presented to the emergency department at [facility] on 10/09/2022 complaining of shortness of breath that had worsened over the last 3 days. Evidently she was in the emergency department on the due to breathing difficulties at that time and was discharged home. S he has progressively been getting worse since that point in time and feeling generally weak. She indicated she could hardly get around her house. They have a pulse oximetry at home and they monitor her pulse ox at this morning and it was found to be 84% when she woke up this morning. She does not wear any oxygen at baseline but does have a history of COPD and still smokes. She had a recent admission in July at which time she had a left common femoral and arterectomy for atherosclerosis in the left lower extremity. She is following with Dr. Lopez for that. She has been on Pletal and Plavix. She is not on any other blood thinners. It appears her baseline hemoglobin is in the 12-13 range and since her surgery has slowly decreased to the point where she is now 7.4. Signs on presentation emergency department showed a temperature of 98, pulse rate of 96, blood pressure of 153/71, respiratory was 20 and her oxygen saturation was initially 93% on room air however later during her emergency department course her a sat dropped to 86% she was placed on 2 L cannula. Her CBC shows a normal white count but it does show a worsening hemoglobin at 7.4 down from 10 in July when she had surgery and prior to that it looks like her baseline is 12-13. She has been on Plavix and Pletal as noted above. She had a thrombocytosis with a platelet count of 575,000. Her chemistry panel shows mild hyponatremia the sodium 134 and an elevated BUN/creatinine at 20 and 1.6 (baseline creatinine 0.7-0.8). Her initial troponin was 5. Chest x-ray showed no acute cardiopulmonary process and no interval change from previous. Her UA was unremarkable [facility] [place] Medical History Alcohol abuse Anxiety Asthma Chronic pain Closed fracture of fifth metatarsal bone of left foot Clostridium difficile colitis COPD (chronic obstructive pulmonary disease) Diverticulitis of colon without hemorrhage Duodenal ulcer Essential hypertension Full dentures GERD (gastroesophageal reflux disease) H/O spleen injury History of cardiovascular stress test History of pelvic hematoma Hyperlipemia Hypertension Impaired fasting glucose Incisional hernia without mention of obstruction or gangrene Injury, spleen, with capsular tears Leg pain Loss of hearing Osteoarthritis Pneumohemothorax, traumatic Pseudocyst of pancreas S/P arteriogram of extremity Shortness of breath Smoker Spleen hematoma Tobacco abuse Wears glasses Home Medications atorvastatin 20 mg tablet 20 mg PO QHS cholesterol 05/28/19 [History Last Taken 10/08/22] carvedilol 25 mg tablet 25 mg PO BID BP 05/28/19 [History Last Taken 10/08/22] spironolactone 25 mg tablet 25 mg PO DAILY BP 05/28/19 [History Last Taken 10/08/22] alprazolam 0.5 mg tablet 0.5 mg PO TID ANXIETY 02/12/21 [History Last Taken 10/08/22] pantoprazole 40 mg tablet,delayed release 40 mg PO DAILY stomach 02/12/21 [History Last Taken 10/08/22] psyllium 1 packet PO DAILY constipation 02/12/21 [History Last Taken Unknown] diphenhydramine 25 mg-acetaminophen 500 mg tablet (Tylenol PM Extra Strength) 1,000 tab PO QHS PRN PRN Sleep 02/13/21 [History Last Taken Unknown] gabapentin 300 mg capsule 600 mg PO TID nerve 12/09/21 [History Last Taken 10/08/22] Lactobacillus acidophilus 20 billion cell capsule (Florajen Acidophilus) 10 mg PO DAILY SUPPLEMENT 02/13/22 [History Last Taken 10/08/22] cilostazol 100 mg tablet 100 mg PO BID PAD 07/14/22 [History Last Taken 2 Days Ago ~10/07/22] clopidogrel 75 mg tablet 75 mg PO DAILY BLOOD THINNER 07/14/22 [History Last Taken 10/08/22] acetaminophen 500 mg tablet 1,000 mg PO Q6H PRN Pain 07/19/22 [History Last Taken 10/08/22] fluticasone fur. 200 mcg-umeclid 62.5 mcg-vilant 25 mcg inhalat.powder (Trelegy Ellipta) 1 inh inhalation DAILY ASTHMA #60 ea 10/04/22 [Rx Last Taken 10/08/22] sulfamethoxazole 800 mg-trimethoprim 160 mg tablet (Bactrim DS) 1 tab PO BID infection 10/09/22 [History Last Taken 10/09/22] Allergy/AdvReac Type Severity Reaction Status Date / Time amlodipine Allergy Unknown Verified 10/09/22 10:28 clonidine Allergy Unknown Verified 10/09/22 10:28 adhesive AdvReac Rash Verified 10/09/22 10:28 codeine AdvReac Nausea Verified 10/09/22 10:28 fentanyl AdvReac Other Verified 10/09/22 10:28 Family History Mother Heart disease Hypertension Diabetes Sister Hypertension Brother Hypertension Sister Hypertension Cervical cancer Brother Pancreatic cancer Surgical History H/O colostomy H/O: History of hernia repair Hx of cervical spine surgery Social History household members: spouse housing: house Smoking Status: Current every day smoker tobacco type: cigarettes Electronic Cigarette Use: not used second hand exposure: Yes alcohol intake: current alcohol intake frequency: a few times a week substance use type: does not use caffeine: Yes what type of physical activity do you participate in: bicycling frequency: 1-2 times per week Vital Signs Vital Signs Vital Signs: 10/09/22 10:25 10/09/22 10:42 10/09/22 10:42 Temperature 98 F Temperature Source Temporal Pulse Rate 96 Respiratory Rate 20 H Respiratory Effort Non-Labored Labored Blood Pressure 153/71 H Blood Pressure Mean 98 Pulse Ox 93 96 Oxygen Delivery Method Room Air Room Air Room Air Oxygen Flow Rate (L/min) 10/09/22 10:28 10/09/22 11:28 10/09/22 11:42 Temperature 97.9 F 98.0 F Temperature Source Temporal Temporal Pulse Rate 88 91 Respiratory Rate 24 H 20 H Respiratory Effort Blood Pressure 123/76 H 142/60 H Blood Pressure Mean 91 87 Pulse Ox 93 93 86 Oxygen Delivery Method Room Air Nasal Cannula Room Air Oxygen Flow Rate (L/min) 2 10/09/22 11:42 10/09/22 11:43 10/09/22 12:44 Temperature Temperature Source Pulse Rate 88 88 Respiratory Rate 18 14 Respiratory Effort Blood Pressure 119/71 Blood Pressure Mean 87 Pulse Ox 98 Oxygen Delivery Method Nasal Cannula Oxygen Flow Rate (L/min) 2 10/09/22 12:00 10/09/22 13:00 10/09/22 13:21 Temperature 98.2 F 98.1 F Temperature Source Temporal Temporal Pulse Rate 87 95 Respiratory Rate 14 25 H Respiratory Effort Blood Pressure 119/71 145/80 H Blood Pressure Mean 87 101 Pulse Ox 97 96 92 Oxygen Delivery Method Nasal Cannula Nasal Cannula Nasal Cannula Oxygen Flow Rate (L/min) 2 2 2 10/09/22 14:00 10/09/22 14:47 10/09/22 15:20 Temperature 97.9 F 98.6 F Temperature Source Temporal Temporal Pulse Rate 107 H 95 106 H Respiratory Rate 25 H 17 25 H Respiratory Effort Blood Pressure 132/64 H 131/85 H Blood Pressure Mean 86 100 Pulse Ox 92 91 Oxygen Delivery Method Nasal Cannula Nasal Cannula Oxygen Flow Rate (L/min) 2 5 10/09/22 15:00 10/09/22 16:24 Temperature 98.6 F Temperature Source Temporal Pulse Rate 107 H 110 H Respiratory Rate 25 H 25 H Respiratory Effort Blood Pressure 131/85 H 173/79 H Blood Pressure Mean 100 110 Pulse Ox 91 93 Oxygen Delivery Method Nasal Cannula Oxygen Flow Rate (L/min) 5 Weight Weight: 81.647 kg Body Mass Index (BMI) 36.3 Physical Exam Const alert, oriented x3 and well nourished Constitutional Narrative: Obese, upper middle-aged, white female, appears older than stated age, sitting up in bed, daughter is at bedside, currently on 2 L nasal cannula General Appearance: cooperative HEENT normocephalic, head/scalp atraumatic, hearing grossly normal bilaterally and moist oral mucous membranes HEENT Narrative: Dentures in place, Mallampati is 2-3, no thrush Eyes PERRL and EOMs intact bilaterally; Negative for conjunctivae normal Eyes Narrative: Conjunctiva are pale bilaterally, no scleral icterus Neck no lymphadenopathy and supple Neck Narrative: Trachea midline, no thyroid enlargement Resp no retractions and no use of accessory muscles Resp Narrative: Tachypnea, diffuse end expiratory wheezes with coarse breath sounds throughout, mild conversational dyspnea Auscultation: wheezes; Negative for crackles or rhonchi Cardio regular rate, regular rhythm, S1 normal heart sound, S2 normal heart sound, no murmurs, no rub, no gallops and no clicks GI normal to inspection, nondistended, normoactive bowel sounds, soft to palpation and non-tender Extremity no clubbing, cyanosis or edema Extremity Narrative: 2+ pedal pulses, Skin no rashes or lesions noted, no wounds, skin turgor normal, no jaundice, no petechiae and no mottling Skin Narrative: Skin at left groin examined where surgical incision site was examined-it appears to be completely closed with no drainage Neuro oriented x3, CN's II-XII intact bilaterally, moves all extremities and no focal motor deficits Neuro Narrative: Generalized weakness but no focal deficits Speech: speech normal Psych affect normal Psych Narrative: Very pleasant, talkative Results Lab / Micro Data Result Diagrams: 10/09/22 20:05 10/09/22 11:00 Labs: Laboratory Results - last 24 hr 10/09/22 11:00: WBC 9.9, RBC 2.72 L, Hgb 7.4 L, Hct 23.4 L, MCV 86.0, MCH 27.2, MCHC 31.6 L, RDW Std Deviation 51.0 H, RDW Coeff of Renea 16.4 H, Plt Count 575 H, MPV 8.8, Immature Gran % (Auto) 0.400, Neut % (Auto) 72.8 H, Lymph % (Auto) 17.1 L, [place] % (Auto) 8.3, Eos % (Auto) 1.1, Baso % (Auto) 0.3, Absolute Neuts (auto) 7.2, Absolute Lymphs (auto) 1.69, Nucleated RBC % 0 10/09/22 11:00: Sodium 134 L, Potassium 5.0, Chloride 104, Carbon Dioxide 25.0, Anion Gap 5, BUN 20 H, Creatinine 1.26 H, Estim Creat Clear Calc 55.84, Est GFR (MDRD) Af Amer 54 L, Est GFR (MDRD) Non-Af 45 L, BUN/Creatinine Ratio 15.9, Glucose 110 H, Calcium 8.7, Troponin I High Sens 5 10/09/22 11:45: Urine Color Yellow, Urine Clarity Sl. Cloudy, Urine pH 7.0, Ur Specific [place] 1.005, Urine Protein Negative, Urine Glucose (UA) Normal, Urine Ketones Negative, Urine Occult Blood Negative, Urine Nitrite Negative, Urine Bilirubin Negative, Urine Urobilinogen Normal, Ur Leukocyte Esterase Negative, Urine RBC 0 SEEN, Urine WBC 0 SEEN, Ur Squamous Epith Cells 0-5 SEEN, Urine Bacteria 0 SEEN, Urine Mucus 0 SEEN 10/09/22 11:50: Blood Type A POSITIVE, Antibody Screen NEGATIVE Micro: Microbiology 10/09/22 13:40 Stool Stool Occult Blood (KB) - Final Occult Blood Positive 10/09/22 11:25 Nasal Secretion SARS-CoV-2 & FLU Antigen (Rapid) - Final Radiology Impression Chest X-Ray 10/09/22 11:10 IMPRESSION: No acute cardiopulmonary abnormality. No interval change. Electronically Signed: Gustavo Vila MD at 12:00 EST , Assessment & Plan Assessment/Plan (1) Anemia: (2) NANO (acute kidney injury): (3) Acute respiratory failure with hypoxia: (4) Tachycardia: PLAN: Plan Acute hypoxic respiratory failure secondary to acute exacerbation of COPD -Patient with some intermittent tachycardia, tachypnea, increasing oxygen demand with diffuse expiratory wheezes, has some conversational dyspnea as well -Now requiring 5 L nasal cannula -At baseline is not O2 dependent -COVID and flu were negative -Check respiratory viral panel -Sputum culture if able -Check strep pneumo and Legionella antigens -Pulmonary toilet with scheduled DuoNebs and as needed albuterol -Solu-Medrol 40 every 8 -Mucinex 1200 twice daily -I-S -Acapella 10 times every 2 hours as while awake Acute anemia with history of duodenal ulcer -Hold Pletal and Plavix -Doubt this is brisk upper with BUN and creatinine ratio at this time -Baseline hemoglobin prior to surgery was 12-13 -Current hemoglobin 7.4 -Cycle hemoglobin and transfuse for hemoglobin less than 7 -Stool is guaiac positive -Clear liquid diet and n.p.o. after midnight -Continue Protonix but increase to twice daily -Consult gastroenterology-discussed with Dr. Murillo Tachycardia -Likely related to the above -Continue to monitor Postoperative surgical incision infection -Continue home Bactrim until completion -We will need to identify stop date Peripheral vascular disease -Recent femoral endarterectomy -Pletal and Plavix on hold Hyperlipidemia -Continue home atorvastatin GERD -Continue home PPI Hypertension -Continue home carvedilol -Continue home Aldactone COPD with ongoing tobacco abuse -Recommend cessation -See above for current treatment -Home inhaler Regular alcohol use -Patient uses alcohol on a regular basis with some abuse tendencies however is not a daily drinker -We will monitor clinically for withdrawal Tobacco abuse -Recommend cessation -Nicotine patch ordered DVT prophylaxis -SCDs -No chemoprophylaxis secondary to concern for GI bleed CODE STATUS -full code Charges/Coding Visit Charges Inpatient E&M: 65413 Init Hosp L3
[2022-10-09 17:47] LABS: Platelet Count 606 K/mm3 (150-450); RET-HE 22.6 pg (30-35); Reticulocyte Count 2.21 % (0.5-1.5)
[2022-10-09 17:48] LABS: Ferritin 20 ng/mL (8-252); Iron 20 ug/dL (50-170); Iron Binding Capacity,Total 405 ug/dL (250-450); PERCENT IRON SATURATION 4.9 % (15.0-55.0)
[2022-10-09] MEDS: Lactated Ringers 1,000 ML 75 ML IV (18:03)
[2022-10-09] MEDS: ALPRAZolam 0.5 MG Tablet PO (18:38)
--- NOTE | 2022-10-09 18:41 | NURSING ---
Patient requesting that scheduled xanax be given now. Patient states that 6am was her last dose and states that she will not be able to wait until 2200 for it. Patient states that she is very scared about being in the hospital. Comfort measures given but ineffective. Made RN of patient's repeated request. Xanax administered now
[2022-10-09 20:33] LABS: Hemoglobin 7.1 g/dL (12.0-15.0)
[2022-10-09] MEDS: guaiFENesin 1,200 MG Tablet 1200 MG PO (21:09)
[2022-10-09] MEDS: Pantoprazole Sodium 40 MG Tablet PO (21:09)
[2022-10-09] MEDS: Carvedilol 25 MG Tablet PO (21:09)
[2022-10-09] MEDS: Gabapentin 600 MG Tablet PO (21:09)
[2022-10-09] MEDS: Atorvastatin Calcium 20 MG Tablet PO (21:09)
[2022-10-09] MEDS: Smz/Tmp Ds Tablet 1 TABLET PO (21:09)
[2022-10-09] MEDS: 0.9% Saline Lock 10 ML Syringe IV (21:10)
--- NOTE | 2022-10-09 23:00 | CON.PCM.GI_ITS ---
HPI Consult Data Date of Consult: 10/10/22 HPI Narrative HPI Narrative: BAHMAN MICHELE, is a 67 F who presents with shortness of breath, cough for the last 3 days.? She feels generally weak.? She states she can barely get around her house.? She noted that her oxygen was 84% when she woke up this morning.? She does not typically have to wear oxygen.? She does have a history of COPD.? She states he has been trying to quit smoking.? She states she rolls up her own cigarettes at home.? She states he started at a half a pack of cigarettes per day and every few days she decreases by 1 cigarette.? She reports that she is down to 6 cigarettes a day.? She states that her albuterol inhaler no longer is working for her.? She has not had a fever at home.? She denies chest pain. CBC shows a normal white count but it does show a worsening hemoglobin at 7.4 down from 10 in July when she had surgery and prior to that it looks like her baseline is 12-13.? She has been on Plavix and Pletal as noted above.? She had a thrombocytosis with a platelet count of 575,000. In the recent past she had trouble with rib fractures after her daughter fell on her.? She developed a pneumothorax and hemothorax and required drainage.? She had multiple rib fractures at that time.? Then she had another fall that caused a splenic laceration requiring at least 8 units of blood and subsequent interventional radiology coil embolization. She does know that she does have a remote history of peptic ulcer disease . She does have incidental gallstones.? She has a large mesh repair of her ventral abdominal wall with a previous history of perforated diverticulitis with a diverting ileostomy. [facility] Medical History (Updated 10/10/22 @ 09:[address] Allen Friend, DO) Alcohol abuse Anxiety Asthma Back pain due to injury Chronic headaches Chronic pain Closed fracture of fifth metatarsal bone of left foot Clostridium difficile colitis COPD (chronic obstructive pulmonary disease) Diverticulitis Diverticulitis of colon without hemorrhage Duodenal ulcer Dyspnea Emphysema of lung Essential hypertension Full dentures GERD (gastroesophageal reflux disease) H/O spleen injury High cholesterol History of cardiovascular stress test History of pelvic hematoma History of stress test Hoarseness Hyperlipemia Hypertension Impaired fasting glucose Incisional hernia without mention of obstruction or gangrene Injury of head and neck Injury, spleen, with capsular tears Leg pain Loss of hearing Osteoarthritis Pneumohemothorax, traumatic Post-menopausal Pseudocyst of pancreas Rheumatoid arthritis S/P arteriogram of extremity Shortness of breath Smoker Spleen hematoma Tobacco abuse Ulcer Wears glasses Home Medications atorvastatin 20 mg tablet 20 mg PO QHS cholesterol 05/28/19 [History Last Taken 10/08/22] carvedilol 25 mg tablet 25 mg PO BID BP 05/28/19 [History Last Taken 10/08/22] spironolactone 25 mg tablet 25 mg PO DAILY BP 05/28/19 [History Last Taken 10/08/22] alprazolam 0.5 mg tablet 0.5 mg PO TID ANXIETY 02/12/21 [History Last Taken 10/08/22] pantoprazole 40 mg tablet,delayed release 40 mg PO DAILY stomach 02/12/21 [History Last Taken 10/08/22] psyllium 1 packet PO DAILY constipation 02/12/21 [History Last Taken Unknown] diphenhydramine 25 mg-acetaminophen 500 mg tablet (Tylenol PM Extra Strength) 1,000 tab PO QHS PRN PRN Sleep 02/13/21 [History Last Taken Unknown] gabapentin 300 mg capsule 600 mg PO TID nerve 12/09/21 [History Last Taken 10/08/22] Lactobacillus acidophilus 20 billion cell capsule (Florajen Acidophilus) 10 mg PO DAILY SUPPLEMENT 02/13/22 [History Last Taken 10/08/22] cilostazol 100 mg tablet 100 mg PO BID PAD 07/14/22 [History Last Taken 2 Days Ago ~10/07/22] clopidogrel 75 mg tablet 75 mg PO DAILY BLOOD THINNER 07/14/22 [History Last Taken 10/08/22] acetaminophen 500 mg tablet 1,000 mg PO Q6H PRN Pain 07/19/22 [History Last Taken 10/08/22] fluticasone fur. 200 mcg-umeclid 62.5 mcg-vilant 25 mcg inhalat.powder (Trelegy Ellipta) 1 inh inhalation DAILY ASTHMA #60 ea 10/04/22 [Rx Last Taken 10/08/22] sulfamethoxazole 800 mg-trimethoprim 160 mg tablet (Bactrim DS) 1 tab PO BID infection 10/09/22 [History Last Taken 10/09/22] Allergy/AdvReac Type Severity Reaction Status Date / Time amlodipine Allergy Unknown Verified 10/09/22 10:28 clonidine Allergy Unknown Verified 10/09/22 10:28 adhesive AdvReac Rash Verified 10/09/22 10:28 codeine AdvReac Nausea Verified 10/09/22 10:28 fentanyl AdvReac Other Verified 10/09/22 10:28 Family History Mother Heart disease Hypertension Diabetes Sister Hypertension Brother Hypertension Sister Hypertension Cervical cancer Brother Pancreatic cancer Surgical History H/O colostomy H/O: History of hernia repair Hx of cervical spine surgery Social History household members: spouse housing: house Smoking Status: Current every day smoker tobacco type: cigarettes Electronic Cigarette Use: not used second hand exposure: Yes alcohol intake: current alcohol intake frequency: a few times a week substance use type: does not use caffeine: Yes what type of physical activity do you participate in: bicycling frequency: 1-2 times per week ROS Constitutional Constitutional: Denies fever(s), frequent falls or headache(s) Eyes Eyes: Reports systems reviewed and no addt'l complaints, except as documented and requires corrective lenses ENT HEENT: Reports none Cardiovascular Cardiovascular: Reports as per HPI Respiratory/Chest Respiratory/Chest: Reports as per HPI Gastrointestinal Gastrointestinal: Reports as per HPI Genitourinary Genitourinary: Reports as per HPI Musculoskeletal Musculoskeletal: Reports as per HPI Integumentary Integumentary: Reports wounds Neurologic Neurologic: Reports none Psychiatric Psychiatric: Reports as per HPI Endocrine Endocrinology: Reports as per HPI Physical Exam Const alert, oriented x3 and well nourished General Appearance: cooperative HEENT normocephalic, head/scalp atraumatic, hearing grossly normal bilaterally and moist oral mucous membranes HEENT Narrative: Dentures in place, Mallampati is 2-3, no thrush Eyes PERRL and EOMs intact bilaterally; Negative for conjunctivae normal Eyes Narrative: Conjunctiva are pale bilaterally, no scleral icterus Neck no lymphadenopathy and supple Neck Narrative: Trachea midline, no thyroid enlargement Resp no retractions and no use of accessory muscles Resp Narrative: Tachypnea, diffuse end expiratory wheezes with coarse breath sounds throughout, mild conversational dyspnea Auscultation: wheezes; Negative for crackles or rhonchi Cardio regular rate, regular rhythm, S1 normal heart sound, S2 normal heart sound, no murmurs, no rub, no gallops and no clicks GI normal to inspection, nondistended, normoactive bowel sounds, soft to palpation and non-tender Extremity no clubbing, cyanosis or edema Extremity Narrative: 2+ pedal pulses, Skin no rashes or lesions noted, no wounds, skin turgor normal, no jaundice, no petechiae and no mottling Skin Narrative: Skin at left groin examined where surgical incision site was examined-it appears to be completely closed with no drainage Neuro oriented x3, CN's II-XII intact bilaterally, moves all extremities and no focal motor deficits Neuro Narrative: Generalized weakness but no focal deficits Speech: speech normal Psych affect normal Psych Narrative: Very pleasant, talkative Lab / Micro Data Result Diagrams: 10/10/22 06:16 10/10/22 06:16 Labs: Laboratory Results - last 24 hr 10/09/22 11:00: WBC 9.9, RBC 2.72 L, Hgb 7.4 L, Hct 23.4 L, MCV 86.0, MCH 27.2, MCHC 31.6 L, RDW Std Deviation 51.0 H, RDW Coeff of Renea 16.4 H, Plt Count 575 H, MPV 8.8, Immature Gran % (Auto) 0.400, Neut % (Auto) 72.8 H, Lymph % (Auto) 17.1 L, [place] % (Auto) 8.3, Eos % (Auto) 1.1, Baso % (Auto) 0.3, Absolute Neuts (auto) 7.2, Absolute Lymphs (auto) 1.69, Nucleated RBC % 0 10/09/22 11:00: Sodium 134 L, Potassium 5.0, Chloride 104, Carbon Dioxide 25.0, Anion Gap 5, BUN 20 H, Creatinine 1.26 H, Estim Creat Clear Calc 55.84, Est GFR (MDRD) Af Amer 54 L, Est GFR (MDRD) Non-Af 45 L, BUN/Creatinine Ratio 15.9, Glucose 110 H, Calcium 8.7, Troponin I High Sens 5 10/09/22 11:00: Iron 20 L, TIBC 405, Iron Saturation 4.9 L, Ferritin 20 10/09/22 11:00: Retic Count 2.21 H, Immature Retic Fraction 42.00 H, Retic Hgb Equivalent 22.6 L 10/09/22 11:45: Urine Color Yellow, Urine Clarity Sl. Cloudy, Urine pH 7.0, Ur Specific [place] 1.005, Urine Protein Negative, Urine Glucose (UA) Normal, Urine Ketones Negative, Urine Occult Blood Negative, Urine Nitrite Negative, Urine Bilirubin Negative, Urine Urobilinogen Normal, Ur Leukocyte Esterase Negative, Urine RBC 0 SEEN, Urine WBC 0 SEEN, Ur Squamous Epith Cells 0-5 SEEN, Urine Bacteria 0 SEEN, Urine Mucus 0 SEEN 10/09/22 11:50: Blood Type A POSITIVE, Antibody Screen NEGATIVE 10/09/22 20:05: Hgb 7.1 L, Hct 23.0 L 10/10/22 06:16: Sodium 134 L, Potassium 4.5, Chloride 105, Carbon Dioxide 22.0, Anion Gap 7, BUN 14, Creatinine 0.96, Estim Creat Clear Calc 67.19, Est GFR (MDRD) Af Amer 75, Est GFR (MDRD) Non-Af 62, BUN/Creatinine Ratio 14.7, Glucose 134 H, Calcium 8.8, Magnesium 2.3 10/10/22 06:16: WBC 8.5, RBC 2.63 L, Hgb 7.2 L, Hct 22.3 L, MCV 84.8, MCH 27.4, MCHC 32.3, RDW Std Deviation 50.4 H, RDW Coeff of Renea 16.4 H, Plt Count 578 H, MPV 8.8, Immature Gran % (Auto) 0.700, Neut % (Auto) 88.3 H, Lymph % (Auto) 9.8 L, [place] % (Auto) 1.1, Eos % (Auto) 0.0, Baso % (Auto) 0.1, Absolute Neuts (auto) 7.5, Absolute Lymphs (auto) 0.83, Nucleated RBC % 0 10/10/22 06:16: Phosphorus 4.3 Micro: Microbiology 10/09/22 16:50 Mucosa - Nose Respiratory Panel (PCR) - Final 10/09/22 13:40 Stool Stool Occult Blood (KB) - Final Occult Blood Positive 10/09/22 11:25 Nasal Secretion SARS-CoV-2 & FLU Antigen (Rapid) - Final Radiology Impression Chest X-Ray 10/09/22 11:10 IMPRESSION: No acute cardiopulmonary abnormality. No interval change. Electronically Signed: Gustavo Vila MD at 12:00 EST , Assessment & Plan Assessment/Plan (1) Anemia: PLAN: The differential diagnosis for her acute on set of blood loss anemia in the setting of 2 antiplatelet medicines, peripheral vascular disease, nicotine addiction would be peptic ulcer disease. Also with her peripheral artery disease she is at high risk for angiodysplasias of the GI tract. She should undergo an upper endoscopy to evaluate upper GI tract. She was explained alternatives, risk, benefits include not withstanding bleeding, infection, sepsis, perforation, need for emergent surgery . She will have an ASA of 3. Charges/Coding Visit Charges Inpatient E&M: 93472 Init Hosp L2
[2022-10-10] VITALS (27 sets, daily range): BP systolic 107–155; BP diastolic 53–101; PULSE 99–118; RESP 16–20; TEMP 35.8–36.9; O2SAT 2–97; BMI 33.3
--- NOTE | 2022-10-10 02:48 | CPS ---
RT busy with critical patient
[2022-10-10] MEDS: Acetaminophen 500 MG Tablet 1000 MG PO ×3 (03:40→20:28)
--- NOTE | 2022-10-10 04:56 | CPS ---
Patient refusing I.S. at this time due to headache pain, I.S. left at bedside
[2022-10-10] MEDS: ALPRAZolam 0.5 MG Tablet PO ×3 (05:49→22:30)
[2022-10-10] MEDS: Gabapentin 600 MG Tablet PO ×3 (05:50→22:30)
[2022-10-10 06:28] LABS: Absolute Lymphocyte Count 0.83 X10^3/uL (0.83-4.51); Absolute Neutrophil Count 7.5 X10^3/uL (2.0-7.7); Basophil# 0.01 X10^3/uL; Basophil% 0.1 % (0-1); Hematocrit 22.3 % (37-47); Hemoglobin 7.2 g/dL (12.0-15.0); Lymphocyte # 0.83 X10^3/ul (0.83-4.51); Lymphocyte % 9.8 % (19-41); Mean Corp Hgb Conc 32.3 g/dL (32-36); Mean Corpuscular Hgb 27.4 pg (27.0-32.0); Mean Corpuscular Volume 84.8 fL (81-99); Mean Platelet Vol. 8.8 fl (6.2-12.0); Monocyte# 0.09 X10^3/uL; Monocyte% 1.1 % (0-10); NRBC Flagged by Analyzer 0 % (0-5); Neutrophil # 7.47 X10^3/uL (2.7-7.7); Neutrophil % 88.3 % (47-70); Platelet Count 578 K/mm3 (150-450); RBC Distribution Width CV 16.4 % (11.6-14.6); RBC Distribution Width SD 50.4 fl (35.1-43.9); Red Blood Count 2.63 M/mm3 (4.2-5.4); White Blood Count 8.5 K/mm3 (4.4-11.0)
[2022-10-10 06:58] LABS: Anion Gap 7 (5-15); BUN 14 mg/dL (7-18); BUN/Creat Ratio 14.7 RATIO (10-20); Calcium,Total 8.8 mg/dL (8.5-10.1); Chloride 105 mmol/L (98-107); Creatinine, Serum 0.96 mg/dL (0.55-1.02); EST Glomerular Filtration Rate 62 mL/min (>60); Est Glom Filt Rate - Afr Amer 75 mL/min (>60); Estimated Creatinine Clearance 67.19 ml/min; Glucose 134 mg/dL (74-106); Magnesium 2.3 mg/dL (1.6-2.6); Potassium 4.5 mmol/L (3.5-5.1); Sodium Level 134 mmol/L (136-145)
[2022-10-10 07:03] LABS: Phosphorus 4.3 mg/dL (2.5-4.9)
--- NOTE | 2022-10-10 11:30 | EGD_PTH ---
PATIENT: BAHMAN MICHELE LOC: MS3 U#:[id number] AGE/SX: 67/F [place] [facility] [place]10[place]09/[address]: Dr. Pastora Allen MD : 1955 BED: 1 DIS: 10/12/2022 SPEC #: [id number] RECD: 10/10/22 16:10 STATUS: ARLENE AVILEZ #: [id number] JUSTA: 10/10/22 11:[address]: Alejandro Murillo DEPT: SURGICAL PATHOLOGY RECD BY: Cassia Garay ENTERED: 10/11/22 08:02 SP TYPE: EGD BIOPSY OT DR: MD Dr. Elena Martinez DO Dr. Victor Velasquez, MD Tissues: Esophagus, NOS Procedures: Special Stain Group II Surgery Specimen Level IV Alcian Blue/PAS (control) HEADER OPERATION: EGD (MAC), electrohemostasis, biopsy PRE-OP DIAGNOSIS: Anemia TISSUE SUBMITTED: Distal esophagus biopsy MICROSCOPIC DIAGNOSIS Distal esophagus, biopsy: Gastroesophageal junctional mucosa with mild chronic inflammation. No evidence of goblet cell metaplasia. See comment. AM:jj 10/12/2022 COMMENT Alcian blue/PAS stain with matched control supports the above diagnosis. MICROSCOPIC DESCRIPTION Slides are reviewed. GROSS DESCRIPTION Received in fixative is one container labeled with the patient's name and designated distal esophagus biopsy. The specimen consists of multiple irregular fragments of light hadley soft tissue that in aggregate measure 1 x 0.3 x 0.1 cm. The specimen is totally submitted in one cassette. / SJ:jj 10/11/2022 TC:3 CPT: 23192, 62566
--- NOTE | 2022-10-10 11:45 | OP.EGD_ITS ---
Patient Name: Linda Leija Procedure Date: 10/10/2022 10:58 AM Date of : 1955 Age: 67 Procedure: Upper GI endoscopy Indications: Iron deficiency anemia Providers: Alejandro Murillo DO Medicines: Monitored Anesthesia Care Patient Profile: This is a 67 year old female. Refer to note in patient chart for documentation of history and physical. Patient has symptoms of acute epigastric abdominal pain and acute cough. Complications: No immediate complications. Procedure: Pre-Anesthesia Assessment: - Prior to the procedure, a History and Physical was performed, and patient medications and allergies were reviewed. The risks and benefits of the procedure and the sedation options and risks were discussed with the patient. All questions were answered and informed consent was obtained. Patient identification and proposed procedure were verified by the physician. Mental Status Examination: normal. CV Examination: normal. Prophylactic Antibiotics: The patient does not require prophylactic antibiotics. Prior Anticoagulants: The patient has taken no previous anticoagulant or antiplatelet agents. ASA Grade Assessment: III - A patient with severe systemic disease. After reviewing the risks and benefits, the patient was deemed in satisfactory condition to undergo the procedure. The anesthesia plan was to use monitored anesthesia care (MAC). Immediately prior to administration of medications, the patient was re-assessed for adequacy to receive sedatives. The heart rate, respiratory rate, oxygen saturations, blood pressure, adequacy of pulmonary ventilation, and response to care were monitored throughout the procedure. The physical status of the patient was re-assessed after the procedure. After obtaining informed consent, the endoscope was passed under direct vision. Throughout the procedure, the patient's blood pressure, pulse, and oxygen saturations were monitored continuously. The gastroscope was introduced through the mouth, and advanced to the second part of duodenum. The upper GI endoscopy was accomplished without difficulty. The patient tolerated the procedure well. Scope In: 11:24:06 AM Scope Out: 11:30:52 AM Total Procedure Duration Time 0 hours 6 minutes 46 seconds Findings: The Z-line was irregular and was found 37 cm from the incisors. Biopsies were taken with a cold forceps for histology. Verification of patient identification for the specimen was done. Estimated blood loss was minimal. A medium-sized hiatal hernia was present. No other significant abnormalities were identified in a careful examination of the stomach. Three 5 mm angiodysplastic lesions with bleeding were found in the duodenal bulb. Coagulation for hemostasis using heater probe was successful. Estimated blood loss was minimal. A moderate Schatzki ring was found in the lower third of the esophagus. A guidewire was placed and the scope was withdrawn. Dilation was performed with a Savary dilator with no resistance at 45 Fr. The dilation site was examined and showed moderate improvement in luminal narrowing. Impression: - Z-line irregular, 37 cm from the incisors. Biopsied. - Medium-sized hiatal hernia. - Three bleeding angiodysplastic lesions in the duodenum. Treated with a heater probe. Recommendation: - Discharge patient to home. - Resume regular diet. - Continue present medications. - Await pathology results. - Repeat upper endoscopy in 3 months to evaluate the response to therapy. Procedure Code(s): --- Professional --- 69893, 59, Esophagogastroduodenoscopy, flexible, transoral; with control of bleeding, any method 16161, Esophagogastroduodenoscopy, flexible, transoral; with insertion of guide wire followed by passage of dilator(s) through esophagus over guide wire 58870, 59,51, Esophagogastroduodenoscopy, flexible, transoral; with biopsy, single or multiple CPT copyright 2017 [employer]. All rights reserved. The codes documented in this report are preliminary and upon orthopedic coder review may be revised to meet current compliance requirements. Alejandro Murillo DO 10/10/2022 11:45:27 AM This report has been signed electronically. Number of Addenda: 0 Note Initiated On: 10/10/2022 10:58 AM
--- NOTE | 2022-10-10 11:46 | OP.CCLET_ITS ---
10/10/2022 Nate Gray [address] [place] [address] Re : Upper GI endoscopy procedure for Linda Leija Dear Dr. Gray This procedure was performed on Monday, October 10, 2022. My impressions and recommendations are as follows: Impressions : - Z-line irregular, 37 cm from the incisors. Biopsied. - Medium-sized hiatal hernia. - Three bleeding angiodysplastic lesions in the duodenum. Treated with a heater probe. Recommendations : - Discharge patient to home. - Resume regular diet. - Continue present medications. - Await pathology results. - Repeat upper endoscopy in 3 months to evaluate the response to therapy. My findings are described in the full procedure note, which is enclosed. If I can be of further assistance, please feel free to contact me at . Sincerely, Alejandro Friend, DO 10/10/2022 11:45:27 AM This report has been signed electronically.
--- NOTE | 2022-10-10 12:35 | SUR.PHASEI ---
patient had incontinence of urine in pacu. full bed change and brief applied. patient able to roll and assist. maintains o2 nc at 4l for transfer.
[2022-10-10] MEDS: guaiFENesin 1,200 MG Tablet 1200 MG PO ×2 (13:13→22:30)
[2022-10-10] MEDS: Carvedilol 25 MG Tablet PO ×2 (13:13→22:30)
[2022-10-10] MEDS: Pantoprazole Sodium 40 MG Tablet PO ×2 (13:13→22:30)
[2022-10-10] MEDS: Smz/Tmp Ds Tablet 1 TABLET PO ×2 (13:15→22:30)
[2022-10-10] MEDS: Psyllium 1 PACKET PO (13:15)
--- NOTE | 2022-10-10 13:41 | PCM.PN.HOSP ---
Subjective Subjective Follow-up on acute hypoxia/acute COPD exacerbation/GI bleed: Patient was seen and examined. She is on 5 L of oxygen. Still very wheezy. She complains of cough which is dry. Denies any fever or chills. She underwent EGD today that showed 3 bleeding angiodysplastic lesions in the duodenum and treated with a heater probe. Objective Data Objective Data Vital Signs: Vital Signs Temp Pulse Resp BP Pulse Ox O2 Del Method O2 Flow Rate 97.7 F L 100 18 107/53 L 97 Nasal Cannula 5 10/10/22 12:50 10/10/22 12:53 10/10/22 12:50 10/10/22 12:50 10/10/22 12:50 10/10/22 12:53 10/10/22 12:53 Oxygen Flow Rate (L/min) 5 Oxygen Delivery Method Nasal Cannula Weight: 74.843 kg Body Mass Index (BMI) 33.3 Intake & Output: Intake and Output for Last 24 Hours 10/08/22 10/09/22 10/10/22 23:59 23:59 23:59 Intake Total 110 / 110 1000 / 1000 Output Total 900 / 900 Balance 110 / 110 100 / 100 Lab / Micro Data Result Diagrams: 10/10/22 06:16 10/10/22 06:16 Labs: Laboratory Results - last 24 hr 10/09/22 11:00: Iron 20 L, TIBC 405, Iron Saturation 4.9 L, Ferritin 20 10/09/22 11:00: Retic Count 2.21 H, Immature Retic Fraction 42.00 H, Retic Hgb Equivalent 22.6 L 10/09/22 20:05: Hgb 7.1 L, Hct 23.0 L 10/10/22 06:16: Sodium 134 L, Potassium 4.5, Chloride 105, Carbon Dioxide 22.0, Anion Gap 7, BUN 14, Creatinine 0.96, Estim Creat Clear Calc 67.19, Est GFR (MDRD) Af Amer 75, Est GFR (MDRD) Non-Af 62, BUN/Creatinine Ratio 14.7, Glucose 134 H, Calcium 8.8, Magnesium 2.3 10/10/22 06:16: WBC 8.5, RBC 2.63 L, Hgb 7.2 L, Hct 22.3 L, MCV 84.8, MCH 27.4, MCHC 32.3, RDW Std Deviation 50.4 H, RDW Coeff of Renea 16.4 H, Plt Count 578 H, MPV 8.8, Immature Gran % (Auto) 0.700, Neut % (Auto) 88.3 H, Lymph % (Auto) 9.8 L, Guthrie % (Auto) 1.1, Eos % (Auto) 0.0, Baso % (Auto) 0.1, Absolute Neuts (auto) 7.5, Absolute Lymphs (auto) 0.83, Nucleated RBC % 0 10/10/22 06:16: Phosphorus 4.3 Micro: Microbiology 10/09/22 16:50 Mucosa - Nose Respiratory Panel (PCR) - Final 10/09/22 13:40 Stool Stool Occult Blood (KB) - Final Occult Blood Positive 10/09/22 11:25 Nasal Secretion SARS-CoV-2 & FLU Antigen (Rapid) - Final Physical Exam Narrative Physical exam: General: Alert, Oriented x3, Cooperative, on 5 L of oxygen HEENT: Atraumatic Oral: Moist Mucosa Neck: Supple Lungs: Diminished to auscultation, wheezes++ Cardiovascular: HS I+II, regular, no murmurs Abdomen: Bowel Sounds Present, Soft, Non Tender Extremities: No edema Skin: No rashes, No breakdown Neurological: Grossly intact Psych/Mental Status: Appropriate Assessment & Plan Assessment/Plan (1) Anemia: (2) NANO (acute kidney injury): (3) Acute respiratory failure with hypoxia: (4) Tachycardia: PLAN: Plan 1. Acute hypoxic respiratory failure secondary to acute COPD exacerbation Patient is a smoker. Chest x-ray shows no acute cardiopulmonary abnormality. Respiratory panel, COVID and flu were negative Continue with IV Solu-Medrol, breathing treatments 2. Acute GI bleed secondary to angiodysplastic lesions Status post EGD on 10/10/22 Continue on PPI 3. Acute blood loss anemia secondary to #2, iron deficiency anemia hemoglobin is 7.2 Will give IV Venofer, will trend H&H and transfuse for hemoglobin less than 7 4. Postoperative surgical incision, continue with home Bactrim 5. PAD status post recent femoral endarterectomy/hyperlipidemia Continue on statin, Plavix 6. Hypertension, now relatively hypotensive We will continue metoprolol, hold Aldactone 7. Nicotine dependence, on replacement 8. DVT PPx- SCDs Charges/Coding Visit Charges Inpatient E&M: 72897 Subs Hosp L2
--- NOTE | 2022-10-10 15:10 | CASEMGMT ---
MARGO VALLEJO Assessment: Face to Face with pt for initial transition planning/care coordination assessment. RN YONI introduced self and role at [facility], pt voices understanding and consents to assessment. Pt is A/O x4 and answers all questions appropriately at this time. Pt sitting up in bed with oxygen on in no distress. Care providers, pharmacy, and demographics verified/updated. Admitting Dx: acute hypoxic resp failure PCP:Isaac Specialists:beatrice Lopez; chauncey Valdivia [facility] Insurance: [place] [facility] Prescription Benefit: yes LNOK: Tasia Avendano, dtr; Eloy Bolivardedrabrennan, Living Arrangements: Pt lives with in a two story house with 2 steps to enter. Pt reports being I in ADL's and denies concerns at home. Transportation: Pt drives self and denies concerns with transportation. DME/HHC/SNF: Pt has a pox and no other DME. Pt denies hx of HHC or SNF stays. Pt states no concerns with going home at time of dc. States her can assist her. Pt has not had therapy evals yet. Provided pt with a verbal local in network list of DME companies should she need oxygen, pt chooses [employer]. Pt states she has had oxygen in the past. Discussed homegoing instructions for the oxygen. Pt states no further concerns/needs. CM to follow. Advised pt to ask CM if any further question/concerns/needs arise, voices understanding. Pt Goal: Home with 's assist Plan: Home, follow for oxygen
[2022-10-10] MEDS: Clopidogrel Bisulfate 75 MG Tablet PO (17:19)
[2022-10-10] MEDS: 0.9% Saline Lock 10 ML Syringe IV ×2 (17:19→22:30)
[2022-10-10] MEDS: Budesonide Respules 0.5 MG/2 ML AMPUL.NEB. INHALATION (19:57)
[2022-10-10] MEDS: Ipratropium/Albuterol Sulfate 3 ML AMPUL.NEB INHALATION ×2 (19:57→23:35)
[2022-10-10] MEDS: Atorvastatin Calcium 20 MG Tablet PO (22:30)
[2022-10-11] VITALS (11 sets, daily range): BP systolic 114–153; BP diastolic 61–94; PULSE 82–107; RESP 16–18; TEMP 36.6–36.8; O2SAT 86–99
[2022-10-11] MEDS: Ipratropium/Albuterol Sulfate 3 ML AMPUL.NEB INHALATION (02:55)
[2022-10-11] MEDS: 0.9% Saline Lock 10 ML Syringe IV ×5 (03:18→22:04)
[2022-10-11] MEDS: Ondansetron 4 MG/2 ML Vial IV ×2 (03:18→10:46)
[2022-10-11] MEDS: Gabapentin 600 MG Tablet PO ×3 (07:06→22:01)
[2022-10-11] MEDS: ALPRAZolam 0.5 MG Tablet PO ×3 (07:06→22:01)
[2022-10-11] MEDS: Carvedilol 25 MG Tablet PO ×2 (10:39→22:01)
[2022-10-11] MEDS: Smz/Tmp Ds Tablet 1 TABLET PO ×2 (10:39→22:01)
[2022-10-11] MEDS: Psyllium 1 PACKET PO (10:40)
[2022-10-11] MEDS: guaiFENesin 1,200 MG Tablet 1200 MG PO ×2 (10:40→22:01)
[2022-10-11] MEDS: Clopidogrel Bisulfate 75 MG Tablet PO (10:40)
[2022-10-11] MEDS: Pantoprazole Sodium 40 MG Tablet PO ×2 (10:40→22:01)
--- NOTE | 2022-10-11 13:27 | PCM.PN.HOSP ---
Subjective Subjective Follow-up on acute hypoxia/acute COPD exacerbation/GI bleed: Patient was seen and examined.? She feels relatively improved, on 3 L of oxygen. However she was very dyspneic with evaluation for home oxygen. Objective Data Objective Data Vital Signs: Vital Signs Temp Pulse Resp BP Pulse Ox O2 Del Method O2 Flow Rate 98.1 F 93 18 147/94 H 86 Nasal Cannula 0 10/11/22 08:53 10/11/22 08:53 10/11/22 08:53 10/11/22 08:53 10/11/22 10:14 10/11/22 10:00 10/11/22 10:14 Oxygen Flow Rate (L/min) [ 4 AMBULATING with Oxygen #3] Oxygen Flow Rate (L/min) [ 3 AMBULATING with Oxygen #2] Oxygen Flow Rate (L/min) [ 2 AMBULATING with Oxygen #1] Oxygen Flow Rate (L/min) [At 0 REST on Room Air] Oxygen Flow Rate (L/min) 3 Oxygen Delivery Method Nasal Cannula Weight: 74.843 kg Body Mass Index (BMI) 33.3 Intake & Output: Intake and Output for Last 24 Hours 10/09/22 10/10/22 10/11/22 23:59 23:59 23:59 Intake Total 110 / 110 1279.25 / 1279.25 Output Total 900 / 900 Balance 110 / 110 379.25 / 379.25 Lab / Micro Data Result Diagrams: 10/10/22 06:16 10/10/22 06:16 Micro: Microbiology 10/11/22 12:15 Urine, Random Streptococcus pneumoniae Antigen (M - Final 10/11/22 12:15 Urine, Random Legionella Antigen - Final 10/10/22 17:20 Sputum, Expectorated/Coughed Gram Stain - Final 10/10/22 17:20 Sputum, Expectorated/Coughed Respiratory Culture - Preliminary Appears to be normal respiratory alex. Further studies to follow. 10/09/22 16:50 Mucosa - Nose Respiratory Panel (PCR) - Final 10/09/22 13:40 Stool Stool Occult Blood (KB) - Final Occult Blood Positive 10/09/22 11:25 Nasal Secretion SARS-CoV-2 & FLU Antigen (Rapid) - Final Physical Exam Narrative Physical exam: General: Alert, Oriented x3, Cooperative, on 3 L of oxygen HEENT: Atraumatic Oral: Moist Mucosa Neck: Supple Lungs: Diminished to auscultation, wheezes+ Cardiovascular: HS I+II, regular, no murmurs Abdomen: Bowel Sounds Present, Soft, Non Tender Extremities: No edema Skin: No rashes, No breakdown Neurological: Grossly intact Psych/Mental Status: Appropriate Assessment & Plan Assessment/Plan (1) Anemia: (2) NANO (acute kidney injury): (3) Acute respiratory failure with hypoxia: (4) Tachycardia: PLAN: Plan 1. Acute hypoxic respiratory failure secondary to acute COPD exacerbation, mildly improved Patient is on 3 L of oxygen, was with ambulation needing 4 L. She is still very wheezy Respiratory panel, COVID and flu were negative Continue with IV Solu-Medrol, breathing treatments 2. Acute GI bleed secondary to angiodysplastic lesions Status post EGD on 10/10/22. Continue on PPI 3. Acute blood loss anemia secondary to #2, iron deficiency anemia hemoglobin is 7.2 Will give IV Venofer, will trend H&H and transfuse for hemoglobin less than 7 4. Postoperative surgical incision, continue with home Bactrim 5. PAD status post recent femoral endarterectomy/hyperlipidemia Continue on statin, Plavix 6. Hypertension, now relatively hypotensive Continue metoprolol, hold Aldactone 7. Nicotine dependence, on replacement 8. DVT PPx- SCDs Disposition: Possible DC tomorrow if improved Charges/Coding Visit Charges Inpatient E&M: 59284 Subs Hosp L2
[2022-10-11] MEDS: oxyCODONE 5 MG Tablet PO (20:32)
[2022-10-11] MEDS: Atorvastatin Calcium 20 MG Tablet PO (22:01)
[2022-10-12] VITALS (9 sets, daily range): BP systolic 107–135; BP diastolic 62–78; PULSE 80–101; RESP 18; TEMP 36.4–36.7; O2SAT 87–98
--- NOTE | 2022-10-12 03:57 | CPS ---
pt didn't want woke up for aerosol tx.
[2022-10-12 05:49] LABS: Absolute Neutrophil Count 12.6 X10^3/uL (2.0-7.7); Basophil# 0.01 X10^3/uL; Basophil% 0.1 % (0-1); Hematocrit 25.2 % (37-47); Hemoglobin 7.8 g/dL (12.0-15.0); Lymphocyte % 5.7 % (19-41); Mean Corpuscular Hgb 26.5 pg (27.0-32.0); Mean Corpuscular Volume 85.7 fL (81-99); Mean Platelet Vol. 8.8 fl (6.2-12.0); Monocyte# 0.37 X10^3/uL; Monocyte% 2.6 % (0-10); NRBC Flagged by Analyzer 0.5 % (0-5); Neutrophil # 12.64 X10^3/uL (2.7-7.7); Neutrophil % 89.5 % (47-70); Platelet Count 669 K/mm3 (150-450); RBC Distribution Width CV 16.5 % (11.6-14.6); RBC Distribution Width SD 50.9 fl (35.1-43.9); Red Blood Count 2.94 M/mm3 (4.2-5.4); White Blood Count 14.1 K/mm3 (4.4-11.0)
[2022-10-12] MEDS: Gabapentin 600 MG Tablet PO ×2 (06:00→14:45)
[2022-10-12] MEDS: ALPRAZolam 0.5 MG Tablet PO ×2 (06:00→14:45)
[2022-10-12 06:15] LABS: ALB/GLOB Ratio 0.8 RATIO (0.9-2.4); AST(SGOT) 9 U/L (15-37); Alanine Aminotransfer ALT/SGPT 17 U/L (13-56); Albumin, Serum 2.7 g/dL (3.2-5.0); Alkaline Phosphatase 72 U/L (45-117); Anion Gap 7 (5-15); BUN 20 mg/dL (7-18); BUN/Creat Ratio 22.2 RATIO (10-20); Calcium,Total 8.7 mg/dL (8.5-10.1); Chloride 103 mmol/L (98-107); EST Glomerular Filtration Rate 66 mL/min (>60); Est Glom Filt Rate - Afr Amer 80 mL/min (>60); Estimated Creatinine Clearance 71.67 ml/min; Globulin 3.6 g/dL (2.2-4.2); Glucose 128 mg/dL (74-106); Potassium 4.5 mmol/L (3.5-5.1); Protein, Total 6.3 g/dL (6.4-8.2); Sodium Level 136 mmol/L (136-145)
[2022-10-12] MEDS: Clopidogrel Bisulfate 75 MG Tablet PO (10:05)
[2022-10-12] MEDS: guaiFENesin 1,200 MG Tablet 1200 MG PO (10:05)
[2022-10-12] MEDS: Carvedilol 25 MG Tablet PO (10:05)
[2022-10-12] MEDS: Psyllium 1 PACKET PO (10:05)
[2022-10-12] MEDS: Pantoprazole Sodium 40 MG Tablet PO (10:05)
[2022-10-12] MEDS: Smz/Tmp Ds Tablet 1 TABLET PO (10:06)
--- NOTE | 2022-10-12 13:56 | DCINST_ITS ---
Discharge Instructions Diet Discharge Diet: No restrictions Activity Discharge Activity: Return to Normal Activity Follow Up Care Test Results: Test results from this visit will be discussed in further detail at your follow- up appointment, if applicable. Discharge Plan Admission Admit Date/Time: 10/09/22 16:24 Primary Reason for Your Visit: Hypoxia/acute COPD exacerbation Attending Provider: Pastora Allen Primary Care Provider: Nate Gray Consulting Providers: Elena Moore Instructions Additional Instructions / Restrictions: You are strongly recommended to stop smoking Complete your prednisone taper You are being discharged with oxygen. Continue to use your oxygen all the time. Continue to use your incentive spirometer. Continue to remain active and eat healthy.Be careful of going near open flames whilst on oxygen. Follow-up with pulmonology and your primary care doctor to have your oxygen reevaluated. Discharge Orders/Prescriptions Prescriptions: New nicotine 14 mg/24 hr Patch 24 Hour 14 mg transdermal DAILY 30 Days Qty: 30 0RF pantoprazole 40 mg Tablet,Delayed Release (Dr/Ec) 40 mg PO BID 30 Days Qty: 60 0RF Mucus Relief ER 1,200 mg Tablet Extended Release 12hr 1,200 mg PO BID 7 Days Qty: 14 0RF Continued Florajen Acidophilus 20 billion cell capsule 10 mg PO DAILY carvedilol 25 MG tablet 25 mg PO BID Label Comments: BP atorvastatin 20 MG tablet 20 mg PO QHS Label Comments: cholesterol spironolactone 25 MG tablet 25 mg PO DAILY alprazolam 0.5 mg tablet 0.5 mg PO TID psyllium Packet 1 packet PO DAILY gabapentin 300 mg capsule 600 mg PO TID Label Comments: TAKE 2 CAPSULES BY MOUTH DAILY AT BEDTIME FOR 180 DAYS. cilostazol 100 mg tablet 100 mg PO BID clopidogrel 75 mg tablet 75 mg PO DAILY acetaminophen 500 mg Tablet 1,000 mg PO Q6H PRN (Reason: Pain) Trelegy Ellipta 200-62.5-25 mcg blister with device 1 inh inhalation DAILY Qty: 60 11RF Discontinued pantoprazole 40 mg Tablet,Delayed Release (Dr/Ec) 40 mg PO DAILY diphenhydramine-acetaminophen [Tylenol PM Extra Strength] 25-500 mg Tablet 1,000 tab PO QHS PRN PRN (Reason: Sleep) No Action sulfamethoxazole-trimethoprim [Bactrim DS] 800-160 mg tablet 1 tab PO BID Referrals / Follow Up: Nate Gray MD [Primary Care Provider] - Disposition Disposition (needs filled in before D/C Order can be placed): Home, Self Care
--- NOTE | 2022-10-12 14:03 | PCM.DC.SUM ---
Providers Date of Admission: 10/09/22 Date of Discharge: 10/12/22 Primary Care Physician: Dr. Nate Gray MD Consultations 10/09/22 17:02 Consult: Gastroenterology Routine Consulting Provider: [facility] Reason for Consult: GIB/Anemia EMERGENT Consult: No MD Notified: Yes Date Notified: 10/10/22 Time Notified: 07:48 Method of Notification: text via phone Reason For Visit: ACUTE HYPOXIC RESPIRATORY FAILURE Diagnosis Discharge Diagnosis (1) Anemia: Status: Acute Code(s): D64.9 - Anemia, unspecified (2) NANO (acute kidney injury): Status: Acute Code(s): N17.9 - Acute kidney failure, unspecified (3) Acute respiratory failure with hypoxia: Status: Acute Code(s): J96.01 - Acute respiratory failure with hypoxia (4) Tachycardia: Status: Acute Code(s): R00.0 - Tachycardia, unspecified Plan 1. Acute hypoxic respiratory failure secondary to acute COPD exacerbation 2. Acute GI bleed secondary to angiodysplastic lesions, Status post EGD 3. Acute blood loss anemia 4. Postoperative surgical incision 5. PAD status post recent femoral endarterectomy 6. Hyperlipidemia 6. Hypertension 7. Nicotine dependence Medications at Discharge Home Medications atorvastatin 20 mg tablet 20 mg PO QHS cholesterol 05/28/19 carvedilol 25 mg tablet 25 mg PO BID BP 05/28/19 spironolactone 25 mg tablet 25 mg PO DAILY BP 05/28/19 alprazolam 0.5 mg tablet 0.5 mg PO TID ANXIETY 02/12/21 psyllium 1 packet PO DAILY constipation 02/12/21 gabapentin 300 mg capsule 600 mg PO TID nerve 12/09/21 Lactobacillus acidophilus 20 billion cell capsule (Florajen Acidophilus) 10 mg PO DAILY SUPPLEMENT 02/13/22 cilostazol 100 mg tablet 100 mg PO BID PAD 07/14/22 clopidogrel 75 mg tablet 75 mg PO DAILY BLOOD THINNER 07/14/22 acetaminophen 500 mg tablet 1,000 mg PO Q6H PRN Pain 07/19/22 fluticasone fur. 200 mcg-umeclid 62.5 mcg-vilant 25 mcg inhalat.powder (Trelegy Ellipta) 1 inh inhalation DAILY ASTHMA #60 ea 10/04/22 guaifenesin 1,200 mg tablet, extended release 12 hr (Mucus Relief ER) 1,200 mg PO BID 7 days #14 tabs 10/12/22 nicotine 14 mg/24 hr daily transdermal patch 14 mg transdermal DAILY 30 days #30 ea 10/12/22 pantoprazole 40 mg tablet,delayed release 40 mg PO BID 30 days #60 tabs 10/12/22 prednisone 10 mg tablet See Taper PO DAILY #30 tabs 10/12/22 Hospital Course Operations None Procedures None Summary of Care Provided Minutes Spent on Discharge: 35 Hospital Course: 67-year-old female with past medical history of asthma/COPD, not on oxygen who comes in with progressive shortness of breath and weakness. Patient noticed that she was progressively wheezy and short of breath. Her oxygen saturation at home was 84%. She is a chronic smoker and continued to smoke. She had a recent arthrectomy for left common femoral PAD with vascular surgery. She is on Pletal and Plavix. Patient's work-up in the ED was significant for hemoglobin was 7.4. She has a previous baseline between 12-13. She was admitted to the [facility] floor and managed as acute COPD exacerbation as well as acute blood loss anemia from GI bleed. Gastroenterology was consulted and patient underwent EGD on 10/10/2021. Findings were significant for 3 bleeding angiodysplastic lesions in the duodenum that were treated with a heater probe. Patient's management was continued on the floor after EGD with IV Solu-Medrol, breathing treatment. Her respiratory panel were negative for acute influenza or COVID. She gradually continue to improve. She did require 3 L of oxygen with exertion. Patient was discharged home on a prednisone taper, albuterol. She was strongly recommended to to follow-up with her primary care doctor and with pulmonology within 2 weeks. Physical Exam Narrative Physical exam: General: Alert, Oriented x3, Cooperative, on 3 L of oxygen HEENT: Atraumatic Oral: Moist Mucosa Neck: Supple Lungs: Diminished to auscultation Cardiovascular: HS I+II, regular, no murmurs Abdomen: Bowel Sounds Present, Soft, Non Tender Extremities: No edema Skin: No rashes, No breakdown Neurological: Grossly intact Psych/Mental Status: Appropriate Weight / BMI Weight Weight: 74.843 kg Body Mass Index (BMI) 33.3 ABG / Lab / Microbiology Data Result Diagrams: 10/12/22 05:37 10/12/22 05:37 Laboratory: Laboratory Results - last 24 hr 10/12/22 05:37: WBC 14.1 H, RBC 2.94 L, Hgb 7.8 L, Hct 25.2 L, MCV 85.7, MCH 26.5 L, MCHC 31.0 L, RDW Std Deviation 50.9 H, RDW Coeff of Renea 16.5 H, Plt Count 669 H, MPV 8.8, Immature Gran % (Auto) 2.100 H, Neut % (Auto) 89.5 H, Lymph % (Auto) 5.7 L, [place] % (Auto) 2.6, Eos % (Auto) 0.0, Baso % (Auto) 0.1, Absolute Neuts (auto) 12.6 H, Absolute Lymphs (auto) 0.80 L, Nucleated RBC % 0.5 10/12/22 05:37: Sodium 136, Potassium 4.5, Chloride 103, Carbon Dioxide 26.0, Anion Gap 7, BUN 20 H, Creatinine 0.90, Estim Creat Clear Calc 71.67, Est GFR (MDRD) Af Amer 80, Est GFR (MDRD) Non-Af 66, BUN/Creatinine Ratio 22.2 H, Glucose 128 H, Calcium 8.7, Total Bilirubin 0.10 L, AST 9 L, ALT 17, Alkaline Phosphatase 72, Total Protein 6.3 L, Albumin 2.7 L, Globulin 3.6, Albumin/Globulin Ratio 0.8 L Microbiology: Microbiology 10/11/22 12:15 Urine, Random Streptococcus pneumoniae Antigen (M - Final 10/11/22 12:15 Urine, Random Legionella Antigen - Final 10/10/22 17:20 Sputum, Expectorated/Coughed Gram Stain - Final 10/10/22 17:20 Sputum, Expectorated/Coughed Respiratory Culture - Preliminary Appears to be normal respiratory alex. Further studies to follow. 10/09/22 16:50 Mucosa - Nose Respiratory Panel (PCR) - Final 10/09/22 13:40 Stool Stool Occult Blood (KB) - Final Occult Blood Positive 10/09/22 11:25 Nasal Secretion SARS-CoV-2 & FLU Antigen (Rapid) - Final D/C Instructions Discharge Diet: No restrictions Meaningful Use Info Meaningful Use Diagnoses (Choose all that apply): None applicable Discharge Plan Admission Admit Date/Time: 10/09/22 16:24 Primary Reason for Your Visit: Hypoxia/acute COPD exacerbation Attending Provider: Pastora Allen Primary Care Provider: Nate Gray Consulting Providers: Elena Moore Instructions Additional Instructions / Restrictions: You are strongly recommended to stop smoking Complete your prednisone taper You are being discharged with oxygen. Continue to use your oxygen all the time. Continue to use your incentive spirometer. Continue to remain active and eat healthy.Be careful of going near open flames whilst on oxygen. Follow-up with pulmonology and your primary care doctor to have your oxygen reevaluated. Discharge Orders/Prescriptions Prescriptions: New nicotine 14 mg/24 hr Patch 24 Hour 14 mg transdermal DAILY 30 Days Qty: 30 0RF pantoprazole 40 mg Tablet,Delayed Release (Dr/Ec) 40 mg PO BID 30 Days Qty: 60 0RF Mucus Relief ER 1,200 mg Tablet Extended Release 12hr 1,200 mg PO BID 7 Days Qty: 14 0RF prednisone 10 mg tablet See Taper PO DAILY Qty: 30 0RF Taper: Prednisone Taper 40 mg WITH BREAKFAST for 3 Days and 0 Hour 30 mg WITH BREAKFAST for 3 Days and 0 Hour 20 mg WITH BREAKFAST for 3 Days and 0 Hour 10 mg WITH BREAKFAST for 3 Days and 0 Hour Continued Florajen Acidophilus 20 billion cell capsule 10 mg PO DAILY carvedilol 25 MG tablet 25 mg PO BID Label Comments: BP atorvastatin 20 MG tablet 20 mg PO QHS Label Comments: cholesterol spironolactone 25 MG tablet 25 mg PO DAILY alprazolam 0.5 mg tablet 0.5 mg PO TID psyllium Packet 1 packet PO DAILY gabapentin 300 mg capsule 600 mg PO TID Label Comments: TAKE 2 CAPSULES BY MOUTH DAILY AT BEDTIME FOR 180 DAYS. cilostazol 100 mg tablet 100 mg PO BID clopidogrel 75 mg tablet 75 mg PO DAILY acetaminophen 500 mg Tablet 1,000 mg PO Q6H PRN (Reason: Pain) Trelegy Ellipta 200-62.5-25 mcg blister with device 1 inh inhalation DAILY Qty: 60 11RF Discontinued pantoprazole 40 mg Tablet,Delayed Release (Dr/Ec) 40 mg PO DAILY diphenhydramine-acetaminophen [Tylenol PM Extra Strength] 25-500 mg Tablet 1,000 tab PO QHS PRN PRN (Reason: Sleep) sulfamethoxazole-trimethoprim [Bactrim DS] 800-160 mg tablet 1 tab PO BID Referrals / Follow Up: Atilio Valdivia DO [Med Staff - Active Staff] - Within 2 Weeks Nate Gray MD [Primary Care Provider] - 10/18/22 3:40 pm Disposition Disposition (needs filled in before D/C Order can be placed): Home, Self Care Charges/Coding Visit Charges Inpatient E&M: 29597 Disch Hosp >30min
[2022-10-12] MEDS: 0.9% Saline Lock 10 ML Syringe IV (14:50)
--- NOTE | 2022-10-12 15:19 | CASEMGMT ---
Pt qualifies for oxygen at home. [place] [facility] [place] [facility].
[2022-10-12] MEDS: Acetaminophen 500 MG Tablet 1000 MG PO (16:26)
== END 2022-10-12 17:24 | disposition home or self-care (01) | DRG 377 ==
LOC: ED 15:08 → MS3 17:03
PROVIDERS: Internal Medicine Gastroenterology; Admitting Provider Internal Medicine; Emergency Provider Student in an Organized Health Care Education/Training Program; PCP Internal Medicine; Visit Provider Internal Medicine
PROC: 0DJ08ZZ Inspection of Upper Intestinal Tract, Via Natural or Artificial Opening Endoscopic (ICD-10-PCS; CPT 43235; principal; 2022-10-10 11:25)
DX: K31.811 Angiodysplasia of stomach and duodenum with bleeding (principal); J96.01 Acute respiratory failure with hypoxia; N17.9 Acute kidney failure, unspecified; D62 Acute posthemorrhagic anemia; T81.41XA Infection following a procedure, superficial incisional surgical site, initial encounter; K22.2 Esophageal obstruction; J43.9 Emphysema, unspecified; I73.9 Peripheral vascular disease, unspecified; F17.210 Nicotine dependence, cigarettes, uncomplicated; I10 Essential (primary) hypertension; E78.00 Pure hypercholesterolemia, unspecified; K21.9 Gastro-esophageal reflux disease without esophagitis; K44.9 Diaphragmatic hernia without obstruction or gangrene; F41.9 Anxiety disorder, unspecified; X58.XXXA Exposure to other specified factors, initial encounter; G89.29 Other chronic pain; F10.90 Alcohol use, unspecified, uncomplicated; R00.0 Tachycardia, unspecified; Z99.81 Dependence on supplemental oxygen; Z79.02 Long term (current) use of antithrombotics/antiplatelets; Z79.899 Other long term (current) drug therapy
CPT/HCPCS: 36415; 71045; 80048; 80053; 81001; 82274; 82728; 83540; 83550; 83735; 84100; 84484; 85014; 85018; 85025; 85045; 86850; 86900; 86901; 87070; 87205; 87428; 87449; 87633; 88305; 88313; 93005; 94640; 94667; 94668; 97161; 97166; 99285; J7050; J7120; A4216; J2405; J2916

== ENCOUNTER 2022-12-12 08:30 | Outpatient (RCR) | payer MEDICARE, SELFPAY ==
--- NOTE | 2022-11-07 14:07 | HP.PTEVAL ---
Patient's Visit Information BAHMAN MICHELE is a 67 year old F referred to Physical Therapy by MARY Canchola with a diagnosis of DDD L5-S1. Date of Evaluation: 11/07/22 Physical Therapist: Xiang Garcia, PT, ATC - Visit Plan Frequency: 1-2x /Week Duration: 3 Weeks Plan: Issue and instruct pt on HEP of L/S stab ex's, SKTC/DKTC, proper postural techniques, nustep, and HEP - Subjective SPt reports she has chronic LBP. Pt reports the last 4-5 months have been progressively worsening. Pt reports she is limited with all house chores secondary to pain. Pt notes she can sweep floors and wash dishes for a very short time period until she has to sit down abd rest. Pt notes she was on Tramadyl in the past which took away all of her pain, but notes she had to get off the pain med and now her LBP is severe. Pt reports she has had xrays which revealed significant DDD at S1-L4 vertebral level. Pt notes her doctor wanted her to have an MRI on her LB, but insurance denied it until she tries PT. Pt denies tingling or numbness in LE's, but reports he legs feel heavy all the time like if she just walked 2 miles. Pt reports significant sleep difficulty at this time secondary to pain. Pt reports no pain while sitting here in the clinic, but notes 10/10 pain with upright activity. - Pain LBP Pain Intensity (Out of 10): 0 Pain Intensity Range: 10 - Objective Neuro: B LE sensation is WNL to light touch, but pt notes her LE's are hyposensitive to touch. MMT: B LE's are grossly 4-/5 to 4/5 throughout. ROM: Pt is severely limited L/S extension, moderately limited B sidebending, and WNL to forward flexion. Gait: Pt is able to ambulate 140 feet until needing to sit down and rest secondary to pain - Balance/Special Test Scores Oswestry Low Back Score: 16 - Goals Goal 1:: Decrease LBP x 50% to aid with sleep Goal Time Frame: 2-4 Weeks Goal 2:: Pt will be able to ambulate 340 feet to aid with community ambulation Goal Time Frame: 2-4 Weeks Goal 3:: I with HEP Goal Time Frame: 2-4 Weeks - Rehabilitation Potential Physical Therapy Diagnosis: Pt has LBP, limited L/S ROM, and difficulty with prolonged ambulation secondary to DDD Rehabilitation Potential: Good - Anticipated Interventions Patient/Client Instruction: Educate patient on: Condition, Plan of Care For the Purpose of:: To improve self management Therapeutic Exercise to Include: Strength training, Body mechanics, Postural training, Flexibilty training, Dynamic Lumbar Stabilization For the Purpose of:: To decrease pain, To improve muscle performance and motor function, To improve ability to perform ADL's, To improve ability of physical actions for home/community/work/leisure Thank you for the opportunity to evaluate your patient. For Medicare and Medicare HMO plans, please review the plan of care and approve it. It will need to be FAXED BACK to us at [phone] for Medicare purposes. For Medicare only, by signing this I certify the plan of care. Please let me know if there are questions or concerns regarding this plan of care. Physician Signature: Date:
--- NOTE | 2022-12-12 09:01 | HP.PTDCSUM ---
It has been my pleasure to treat BAHMAN MICHELE referred by MARY Canchola, with the diagnosis of DDD L5-S1 for a total of 4 visit(s). Discharge Date: Please see the following information for a summary of their discharge status. Subjective: I am in severe pain today. I am not any better LBP Pain Intensity (Out of 10): 10 % Improvement: 0 Objective/Function: LBP ranges from 0-10/10. Pt is able to ambulate 340 feet, but complains of severe leg heaviness at that point. Pt is I with HEP. Pt has performed PT for over a month with no change in overall pain Goal 1:: Decrease LBP x 50% to aid with sleep Goal Progress: Not Progressing Goal 2:: Pt will be able to ambulate 340 feet to aid with community ambulation Goal Progress: Goal Met Goal 3:: I with HEP Goal Progress: Goal Met Plan: Discontinue, return to doctor for possible MRI If there are questions or concerns regarding this patient's physical therapy, please feel free to call me at [phone]. Thank you for the referral of this patient. Sincerely, Xiang Garcia, PT, ATC Balance/Gait/Functional tests - Balance/Special Test Scores Oswestry Low Back Score: 14
== END 2022-12-12 14:39 | disposition home or self-care (01) ==
LOC: PT 08:30
PROVIDERS: PCP Internal Medicine
DX: M51.37 Other intervertebral disc degeneration, lumbosacral region (principal)
CPT/HCPCS: 97110; 97161; 97164

== ENCOUNTER → 2023-01-16 | Outpatient (CLI) | payer MEDICARE, SELFPAY ==
--- NOTE | 2023-01-16 15:01 | CT_ITS ---
EXAM: CT CHEST, LUNG CANCER SCREENING WITHOUT INTRAVENOUS CONTRAST CLINICAL INDICATION: smoker TECHNIQUE: Helically acquired images were obtained of the chest without intravenous contrast using low dose (LDCT) lung cancer screening protocol. This CT exam was performed using one or more of the following dose reduction techniques: automated exposure control, adjustment of the mA and/or kV according to patient size, and/or use of iterative reconstruction technique. This report was created using [employer] report generation technology. COMPARISON: 12/20/2021 FINDINGS: LUNGS AND PLEURAL SPACES: There is a groundglass nodular density in the right upper lobe that measures 4 mm seen on series 2 image 53. There is a questionable nodule in the right upper lobe that measures 5 mm however this may represent a vascular structure. This is seen on series 2 image 70. There is a 4 mm nodule in the superior segment of the right lower lobe seen on series 2 image 122. There is scarring in both lung bases. No pleural effusion or thickening. No pneumothorax. HEART: Unremarkable. Heart size is normal. No pericardial effusion. No significant coronary artery calcifications. MEDIASTINUM: Unremarkable. No mediastinal or hilar adenopathy. Esophagus is unremarkable. No hiatal hernia. THYROID: Unremarkable. No thyroid lesions. BONES/JOINTS: Unremarkable. No suspicious lytic or blastic abnormality. VASCULATURE: Unremarkable. Thoracic aorta is non-dilated. LYMPH NODES: Unremarkable. No enlarged lymph nodes. OTHER FINDINGS: There is scarring seen within the right apex which is stable. CT/Low Dose CT Lung Screening IMPRESSION: Multiple nodular density seen within the right upper and lower lobes. Lung-RADS score: 2 - Benign Appearance or Behavior. Recommend continued annual screening with low-dose CT (LDCT) in 12 months. Electronically Signed: Adolfo Ballard MD at 0:07 EDT ,
== END | disposition home or self-care (01) ==
LOC: CT 15:00
PROVIDERS: PCP Internal Medicine; Referring Provider Nurse Practitioner Acute Care; Visit Provider Nurse Practitioner Acute Care
DX: Z12.2 Encounter for screening for malignant neoplasm of respiratory organs (principal); F17.210 Nicotine dependence, cigarettes, uncomplicated
CPT/HCPCS: 71271

== ENCOUNTER → 2023-02-09 | Outpatient (CLI) | payer MEDICARE, SELFPAY ==
--- NOTE | 2023-02-09 15:55 | MRI_ITS ---
STUDY: MRI LUMBAR SPINE WITHOUT CONTRAST REASON FOR EXAM: Female, 67 years old. pain TECHNIQUE: Standardized fat and water weighted pulse sequences were obtained in the sagittal and axial planes. COMPARISON: None FINDINGS: T12-L1: Normal endplates. Normal disc height, hydration and morphology. Normal bilateral facet joints. Normal central canal and bilateral lateral recesses. Normal bilateral intervertebral neural foramina. Normal lumbar lordosis. There is no substantial scoliosis. Normal conus medullaris that terminates at T12-L1 L1-2: Normal endplates. Normal disc height, hydration and morphology. Normal bilateral facet joints. Normal central canal and bilateral lateral recesses. Normal bilateral intervertebral neural foramina. L2-3: Normal endplates. Normal disc height, hydration and morphology. Normal bilateral facet joints. Normal central canal and bilateral lateral recesses. Normal bilateral intervertebral neural foramina. L3-4: Normal endplates. Normal disc height, desiccation and tiny left foraminal disc protrusion. Mild facet arthropathy.. Normal central canal and bilateral lateral recesses. Mild left neural foraminal encroachment.. L4-5: Normal endplates. Normal disc height, hydration and tiny left foraminal disc protrusion.. Facet arthropathy and mild thickening of ligamenta flava.. Normal central canal and bilateral lateral recesses. Mild left neural foraminal stenosis. L5-S1: Normal endplates. Normal disc height, hydration and normal morphology. Mild facet arthropathy and thickening of ligamenta flava. Normal central canal and bilateral lateral recesses. Normal bilateral intervertebral neural foramina. Normal visualized sacral ala. Normal visualized paraspinous soft tissue structures. MRI/Spine Lumbar (Routine) IMPRESSION: No evidence for acute fracture or other significant bone pathology. Mild left neural foraminal stenosis at L3-4 and L4-5 secondary to tiny left foraminal disc protrusions and facet arthropathy. Electronically Signed: Kris Oneill MD at 21:23 EDT ,
== END | disposition home or self-care (01) ==
LOC: MRI 15:42
PROVIDERS: PCP Internal Medicine; Referring Provider Orthopaedic Surgery; Visit Provider Orthopaedic Surgery
DX: M48.061 Spinal stenosis, lumbar region without neurogenic claudication (principal)
CPT/HCPCS: 72148

== ENCOUNTER → 2023-02-15 | Outpatient (CLI) | payer MEDICARE, SELFPAY ==
[2023-02-15 10:33] LABS: Absolute Lymphocyte Count 1.84 X10^3/uL (0.83-4.51); Absolute Neutrophil Count 6.6 X10^3/uL (2.0-7.7); Basophil# 0.06 X10^3/uL; Basophil% 0.6 % (0-1); Eosinophil# 0.17 X10^3/uL; Eosinophils% 1.8 % (0-5); Hematocrit 41.7 % (37-47); Hemoglobin 13.5 g/dL (12.0-15.0); Lymphocyte # 1.84 X10^3/ul (0.83-4.51); Lymphocyte % 19.7 % (19-41); Mean Corp Hgb Conc 32.4 g/dL (32-36); Mean Corpuscular Hgb 29.4 pg (27.0-32.0); Mean Corpuscular Volume 90.8 fL (81-99); Mean Platelet Vol. 9.7 fl (6.2-12.0); Monocyte# 0.59 X10^3/uL; Monocyte% 6.3 % (0-10); NRBC Flagged by Analyzer 0 % (0-5); Neutrophil # 6.61 X10^3/uL (2.7-7.7); Neutrophil % 71.1 % (47-70); Platelet Count 373 K/mm3 (150-450); RBC Distribution Width CV 15.9 % (11.6-14.6); RBC Distribution Width SD 52.5 fl (35.1-43.9); RET-HE 32.4 pg (30-35); Red Blood Count 4.59 M/mm3 (4.2-5.4); Reticulocyte Count 1.52 % (0.5-1.5); White Blood Count 9.3 K/mm3 (4.4-11.0)
[2023-02-15 10:58] LABS: Ferritin 8 ng/mL (8-252); Iron 31 ug/dL (50-170); Iron Binding Capacity,Total 433 ug/dL (250-450); LDH 168 U/L (84-246)
[2023-02-16 15:08] LABS: Alpha-1-Globulins 0.2 g/dL (0.0-0.4); Alpha-2-Globulins 0.8 g/dL (0.4-1.0); Gamma Globulin 0.7 g/dL (0.4-1.8); Haptoglobin 217 mg/dL (37-355); Immunoglobulin A 220 mg/dL (87-352); Immunoglobulin G 848 mg/dL (586-1602); Immunoglobulin M 74 mg/dL (26-217); PROEL- TOTAL PROTEIN 6.8 g/dL (6.0-8.5)
== END | disposition home or self-care (01) ==
LOC: LAB 09:56
PROVIDERS: PCP Internal Medicine; Visit Provider Internal Medicine Gastroenterology
DX: K21.9 Gastro-esophageal reflux disease without esophagitis (principal); D36.9 Benign neoplasm, unspecified site
CPT/HCPCS: 36415; 82728; 82784; 83010; 83540; 83550; 83615; 84165; 85025; 85045; 86334

== ENCOUNTER → 2023-03-15 | Outpatient (CLI) | payer MEDICARE, SELFPAY ==
--- NOTE | 2023-03-15 12:49 | ART_ITS ---
Reason For Study: Bi-lateral claudication Procedure A bilateral lower extremity continuous wave Doppler with analog waveform analysis,segmental pressures,and ankle brachial indexes without exercise. Did not complete exercise portion due to low SHAKIR. Left Segmental Pressures Left brachial= 154mmHg. Left thigh = 86mmHg. Left calf = 88mmHg. Left posterior tibial artery = 59mmHg. Left dorsalis pedis artery = 58mmHg. Left digit = 27 mmHg. The left posterior tibial artery waveforms are monophasic. The left dorsalis pedis waveforms are monophasic. Right Segmental Pressures Right brachial= 155mmHg. Right thigh = 143mmHg. Right calf = 110mmHg. Right posterior tibial artery = 109mmHg. Right dorsalis pedis artery = 99mmHg. Right digit = 72 mmHg. The right posterior tibial artery waveforms are biphasic. The right dorsalis pedis waveforms are biphasic. Indices The right ankle brachial index by the posterior tibial artery is 0.70. The right ankle brachial index by the dorsalis pedis is 0.64. The right digital-brachial index is 0.46. The left ankle brachial index by the posterior tibial artery is 0.38. The left ankle brachial index by the dorsalis pedis is 0.37. The left digital-brachial index is 0.17. VL/Lower Ext Art Exam w/o Exercis Interpretation Summary Right SHAKIR 0.7, moderate arterial insufficiency. Doppler/PVR waveforms and segme ntal pressures reveal [id number] femoral, distal SFA/popliteal disease. Left SHAKIR 0.38, severe arterial insufficiency. Doppler/PVR waveforms and segment al pressures reveal [id number] femoral, infrapopliteal disease Ordering Physician: Alec Lopez Referring Physician: Nate Gray M.D. Performed By: Sam Mi RVAlex
== END | disposition home or self-care (01) ==
LOC: CVS 12:48
PROVIDERS: PCP Internal Medicine; Referring Provider Surgery Trauma Surgery; Visit Provider Surgery Trauma Surgery
DX: Z48.812 Encounter for surgical aftercare following surgery on the circulatory system (principal)
CPT/HCPCS: 93923

== ENCOUNTER → 2023-03-19 | Outpatient (CLI) | payer MEDICARE, SELFPAY ==
[2023-03-19 14:35] LABS: Amphetamine Urine VISTA NEGATIVE (<1000 ng/mL); Barbiturate Urine VISTA NEGATIVE (< 200 ng/mL); Benzodiazepine Urine VISTA POSITIVE (< 200 ng/mL); Cocaine Urine VISTA NEGATIVE (< 300 ng/mL); Ecstacy Urine VISTA NEGATIVE (< 500 ng/mL); Methadone Urine VISTA NEGATIVE (< 300 ng/mL); PCP Urine VISTA NEGATIVE (< 25 ng/mL); THC Urine VISTA NEGATIVE (< 50 ng/mL); Vista UDS pH Range 6
== END | disposition home or self-care (01) ==
PROVIDERS: PCP Internal Medicine; Referring Provider Anesthesiology Pain Medicine; Visit Provider Anesthesiology Pain Medicine
DX: F11.20 Opioid dependence, uncomplicated (principal)
CPT/HCPCS: 80307

== ENCOUNTER → 2023-03-27 | Outpatient (CLI) | payer MEDICARE, SELFPAY ==
--- NOTE | 2023-03-27 06:37 | CT_ITS ---
STUDY: CTA OF THE ABDOMINAL AORTA AND BILATERAL LOWER EXTREMITIES REASON FOR EXAM: Female, 68 years old. increased claudication/pain TECHNIQUE: Axial CT angiography multi-detector data acquisition was obtained following intravenous administration of Contrast: IV 100mL [id number]-[id number]. Axial images and MIP images were reconstructed from the axial data set. Post-processing of the angiographic images was performed, with multiplanar reformation and 3D reconstruction. MIPS images were obtained. Individualized dose optimization techniques were used for this CT. Radiation: CTDIvol = [8.61] mGy, DLP = [1142.83] mGy-cm COMPARISON: 06.28.22. FINDINGS: The visualized lung bases are unremarkable. Chronic deformity of the left wrist. Normal liver. Normal gallbladder and extrahepatic biliary system. Normal spleen. Normal pancreas. Normal bilateral adrenal glands. Normal right kidney. 28mm hypodensity of the left kidney. This is 16 HU and consistent for a stable cyst. Metallic densities along the greater curvature of the stomach suggesting prior gastric surgery or embolic coils. Normal small intestine. Normal colon. There are surgical clips in the region of the appendix consistent with a prior appendectomy. Normal inferior vena cava. Normal retroperitoneum. Normal urinary bladder. There is atrophy of the uterus. Anterior abdominal wall hernia mesh in place. Normal abdominal wall. There are diffuse degenerative changes of the visualized lumbar spine. There is an unremarkable-appearing IVC. Abdominal aorta: There are calcifications of the abdominal aorta. This is consistent for atherosclerotic disease. There is no abdominal aortic aneurysm. Celiac and superior mesenteric arteries: There is moderate diffuse narrowing. Inferior mesenteric artery: There is moderate diffuse narrowing. Right renal artery(arteries): There is mild diffuse narrowing. Left renal artery(arteries): There is mild diffuse narrowing. Right common iliac artery: There is mild diffuse narrowing. Right external iliac artery: There is mild diffuse narrowing. Right internal iliac artery: There is mild diffuse narrowing. Left common iliac artery: There is mild diffuse narrowing. Left external iliac artery: There is mild diffuse narrowing. Left internal iliac artery: Multiple levels of severe stenosis throughout the artery. There is an occlusion in the artery but with distal reconstitution. RIGHT LOWER EXTREMITY Right common femoral artery: There is moderate diffuse narrowing. Right profundus femoris: No demonstrated narrowing. Right superficial femoral: Severe stenosis at the origin of the proximal superficial femoral artery. Calcifications are seen along the course of the artery without contrast consistent with occlusion. Similar in appearance to prior. Right popliteal artery: There is distal reconstitution at this level. Right tibioperoneal trunk: There is mild diffuse narrowing. Right anterior tibial artery: No demonstrated narrowing. Right posterior tibial artery: No demonstrated narrowing. Right peroneal artery: No demonstrated narrowing. LEFT LOWER EXTREMITY Left common femoral artery: There is severe diffuse narrowing. Left profundus femoris: There is severe diffuse narrowing. Left superficial femoral: Scattered atherosclerotic changes with moderate to severe stenosis of the proximal SFA. There is an occlusion in the mid vessel. Similar appearance to prior. Left popliteal artery: There is distal reconstitution at this level. Left tibioperoneal trunk: No demonstrated narrowing. Left anterior tibial artery: No demonstrated narrowing. Left posterior tibial artery: No demonstrated narrowing. Left peroneal artery: No demonstrated narrowing. CT/CTA Abd w/Runoff W/WO Contrast IMPRESSION: Left internal iliac artery: Multiple levels of severe stenosis throughout the artery. There is an occlusion in the artery but with distal reconstitution. Redemonstration of occluded right and left SFAs with reconstitution at the popliteals. Stable left renal cyst. Electronically Signed: Xiang Gallagher MD at 18:01 EDT ,
== END | disposition home or self-care (01) ==
LOC: CT 06:36
PROVIDERS: PCP Internal Medicine; Referring Provider Physician Assistant; Visit Provider Physician Assistant
DX: Z48.812 Encounter for surgical aftercare following surgery on the circulatory system (principal); I70.219 Atherosclerosis of native arteries of extremities with intermittent claudication, unspecified extremity
CPT/HCPCS: 75635; Q9967; A4216

== ENCOUNTER 2023-05-16 07:56 | Day surgery (SDC) | payer MEDICARE, SELFPAY ==
[2023-05-15 08:00] VITALS: BMI 32.3
[2023-05-16 08:09] LABS: Absolute Lymphocyte Count 1.82 X10^3/uL (0.83-4.51); Absolute Neutrophil Count 7.4 X10^3/uL (2.0-7.7); Basophil# 0.05 X10^3/uL; Basophil% 0.5 % (0-1); Eosinophil# 0.16 X10^3/uL; Eosinophils% 1.5 % (0-5); Hematocrit 35.9 % (37-47); Hemoglobin 11.3 g/dL (12.0-15.0); Lymphocyte # 1.82 X10^3/ul (0.83-4.51); Lymphocyte % 17.6 % (19-41); Mean Corp Hgb Conc 31.5 g/dL (32-36); Mean Corpuscular Hgb 29.4 pg (27.0-32.0); Mean Corpuscular Volume 93.5 fL (81-99); Mean Platelet Vol. 9.4 fl (6.2-12.0); Monocyte# 0.91 X10^3/uL; Monocyte% 8.8 % (0-10); NRBC Flagged by Analyzer 0 % (0-5); Neutrophil # 7.37 X10^3/uL (2.7-7.7); Neutrophil % 71.1 % (47-70); Platelet Count 346 K/mm3 (150-450); RBC Distribution Width CV 15.1 % (11.6-14.6); RBC Distribution Width SD 51.8 fl (35.1-43.9); Red Blood Count 3.84 M/mm3 (4.2-5.4); White Blood Count 10.4 K/mm3 (4.4-11.0)
[2023-05-16 08:28] LABS: Anion Gap 2 (5-15); BUN 13 mg/dL (7-18); BUN/Creat Ratio 14.4 RATIO (10-20); Chloride 100 mmol/L (98-107); EST Glomerular Filtration Rate 66 mL/min (>60); Est Glom Filt Rate - Afr Amer 80 mL/min (>60); Estimated Creatinine Clearance 68.54 ml/min; Glucose 97 mg/dL (74-106); Potassium 4.4 mmol/L (3.5-5.1); Sodium Level 130 mmol/L (136-145)
--- NOTE | 2023-05-16 13:11 | OP.PCM_ITS ---
Report of Operation Date of Procedure: 05/16/23 Pre-Operative Diagnosis: atherosclerosis with claudication, LLE Post-Operative Diagnosis: same Surgery/Procedure Performed:: aortogram, LLE runoff IVUS TP trunk, sfa/popliteal, common femoral, external/common iliac angioplasty/stent left SFA angioplasty left external iliac Surgeon: Alec Lopez Type of Anesthesia: Local and Sedation,Conscious Estimated Blood Loss (mL): 5 Description of Procedure: HPI: Patient is a 60-year-old female with recurrent short distance claudication of left lower extremity with revascularization in the past including left external iliac artery stent, left common femoral profunda thromboendarterectomy. She has had recurrence of her symptoms and previous imaging revealed drop in her ankle-brachial index as well as stenosis of the external iliac stent, common femoral artery, and occlusion of one of the branches of her profunda. She is also got fixed long segment stenosis with short segment occlusion of her SFA popliteal. She presents now for angiogram with possible intervention. Description of procedure: Upon obtaining informed consent and verification correct patient procedure site patient taken to Director Of Primary where she was positioned prepped and draped in usual fashion. Time was performed and conscious sedation administered with Versed and fentanyl. Skin was anesthetized overlying the right common femoral artery and the vessel accessed under ultrasound guidance with a micropuncture needle wire in retrograde fashion. This then exchanged for micropuncture sheath through which hand-injection iliofemoral angiogram was performed revealed satisfactory positioning with no extravasation or dissection. Through the micropuncture sheath a Konterason wire was advanced into abdominal aorta and the micropuncture sheath exchanged out for a short 6 Solomon Islander sheath. Through the 6 [place] Islander sheath Omni Flush catheter was advanced abdominal aorta and digital subtraction angiogram pelvic angiogram was performed. We then navigated the contralateral iliac system advancing our catheter in the distal external iliac artery. From this positioning a subtraction angiography was performed sequential of the left lower extremity which revealed in-stent stenosis of the left external iliac artery stent stenosis of the left common femoral artery, generous sized secondary profunda branch with variant origin. There was diffuse high-grade stenosis of the SFA with short segment occlusion at the distal aspect of the vessel reconstitution of the above-knee popliteal. There was preserved distal popliteal artery with no significant stenosis and patent trifurcation with three-vessel runoff to the foot. This felt this was for the most part amenable to endovascular intervention so a stiff Glidewire was then advanced through the catheter and positioned in the proximal superficial femoral artery. The Omni Flush catheter was then withdrawn and the short 6 Solomon Islander sheath exchanged for 6 [place] Islander 55 Hernandez sheath advanced into position and the proximal common femoral artery. Patient was then heparinized and allowed to circulate for 3 minutes with subsequent heparin dosing based on ACT results. A quick cross catheter was advanced over the Glidewire the Glidewire exchanged for a command 18 wire which was utilized to traverse the areas of stenosis and total occlusion with the catheter and wire ultimately advanced into the popliteal artery. Wire was withdrawn and hand- injection via the catheter revealed satisfactory positioning within true lumen. The command 18 wire was then readvanced and the catheter withdrawn. An 018 intravascular ultrasound probe was then brought in the field and advanced over the wire and recorded pullback of the tibioperoneal trunk, SFA popliteal artery, common femoral artery, external iliac artery, common iliac artery was performed. This confirmed a relatively nondiseased P2 and P3 segment popliteal artery with mild atherosclerosis and stenosis in the P1 segment of the popliteal as well as confirmed transit of the lesion and true lumen across the SFA disease segment We also were able to obtain accurate measurements of the reference vessel pro ximal and distal to the lesions. The intravascular shunt also confirmed that the proximal SFA was without significant atherosclerosis or stenosis and also revealed the common femoral and its bifurcation anatomic variant. The common femoral lesion actually appeared to be more of a tapered vessel at the caliber change with some mural thrombus rather than a true stenosis in the distal likely did not warrant intervention. Also confirmed 50% stenosis of the external iliac artery stent. A 5 x 200 [place] AngioS[employer]pt balloon was then advanced into position and inflated across the length of the SFA/popliteal lesion. This was then deflated withdrawn and repeat angiography revealed overall satisfactory response to angioplasty with a focal dissection at the proximal distal end of the total occlusion. There is also a short segment dissection in the proximal SFA. [place] that the majority of the treated length could be done with balloon angioplasty with paclitaxel coated. Did spot stenting of the dissections. A [employer] Rosalina gripNotes 4 x 300 angioplasty balloon was then brought to field prep for consular officer instructions with advanced over the wire and inflated to nominal for 3 minutes across the lesion. Was then deflated withdrawn but in the angiography revealing continued short segment dissection with no extravasation. Next a Cook's over PTX paclitaxel coated stent 140 was brought in the field and advanced into position and deployed covering the 2 distal segments of dissection. A Carbajal self-expanding stent 6 x 40 was then advanced in position and placed at the more proximal segment of dissection. Repeat angiography revealed brisk contrast transit across the stented and angioplasty segments with no further extravasation or dissection. We then withdrew our sheath back to the proximal common iliac artery and a 5 mm angioplasty balloon was used to angioplasty the distal external iliac artery stent. Repeat angiography revealed satisfactory in-stent stenosis response to angioplasty with no continued residual stenosis. See no further lesions for treatment the long 6 Solomon Islander sheath exchanged out for short 6 [place] Islander sheath and a minx closure device deployed followed by 10 minutes of manual pressure. At the completion of case patient was awakened her sedation taken recovery room for bedrest prior to discharge home. Radiograph interpretation: Abdominal aorta normal caliber with no significant atherosclerosis or stenosis. Right common iliac artery patent with moderate diffuse atherosclerosis but no significant stenosis. Right internal iliac artery patent with mild atherosclerosis but no stenosis. Right external iliac artery patent with mild to moderate diffuse atherosclerosis with less than 50% in-stent stenosis. Right common femoral artery patent with moderate diffuse atherosclerosis and stenosis. Right SFA origin occluded, right profundofemoral large caliber vessel with no atherosclerosis or stenosis. Left common iliac artery patent with moderate diffuse atherosclerosis but no focal stenosis. Left internal iliac artery occluded at its origin with filling via a pelvic collaterals. Left external iliac artery stent patent with no stenosis in the proximal segment with 50% stenosis of the mid stent followed by no significant stenosis distally. Left common femoral artery prior patch angioplasty with the proximal segment widely patent with no stenosis large caliber vessel. Distally the vessel tapers down to approximately the 4 mm in diameter as it transitions incised to the SFA with a large caliber profundofemoral branch originating from the SFA. SFA with multiple tandem areas of stenosis greater than 50% at the proximal segment, and mid segment, with total occlusion of the distal segment with reconstitution of the above-knee popliteal. There is 50% stenosis of the P1 segment of popliteal with return to normal caliber with no significant atherosclerosis or stenosis of P2 and P3. Popliteal trifurcation patent with no significant atherosclerosis or stenosis. All lesions with satisfactory response to intervention with no residual stenosis and no extravasation dissection.
[2023-05-16 13:31] LABS: ACT Activated Clotting Time 251 sec (74-137)
== END 2023-05-16 17:00 | disposition home or self-care (01) ==
PROVIDERS: PCP Internal Medicine; Referring Provider Surgery Trauma Surgery; Visit Provider Surgery Trauma Surgery
DX: I70.212 Atherosclerosis of native arteries of extremities with intermittent claudication, left leg (principal); T82.856A Stenosis of peripheral vascular stent, initial encounter; F17.210 Nicotine dependence, cigarettes, uncomplicated; I10 Essential (primary) hypertension; G89.29 Other chronic pain; Z79.899 Other long term (current) drug therapy; X58.XXXA Exposure to other specified factors, initial encounter
CPT/HCPCS: 36246; 36200; 36245; 36415; 37220; 37226; 37252; 37253; 75625; 75710; 76937; 80048; 85025; 85347; 99152; 99153; C1725; C1753; C1760; C1769; C1887; C2623; J7040; Q9967; C1874; C1876

== ENCOUNTER 2023-05-18 22:55 | Emergency (ER) | payer MEDICARE, SELFPAY ==
[2023-05-18 22:58] VITALS: BP 177/97; PULSE 114; RESP 20; TEMP 37.2; O2SAT 95; BMI 32.7
[2023-05-18 23:01] VITALS: BP 177/97; PULSE 109; RESP 19; TEMP 37.2; O2SAT 99
--- NOTE | 2023-05-19 00:12 | EX.ED.DYSGE1 ---
HPI History of Present Illness Chief Complaint: General Illness [facility] Medical History Alcohol abuse Asthma Back pain due to injury Chronic headaches Chronic pain Closed fracture of fifth metatarsal bone of left foot Clostridium difficile colitis COPD (chronic obstructive pulmonary disease) Diverticulitis Diverticulitis of colon without hemorrhage Duodenal ulcer Dyspnea Emphysema of lung Essential hypertension Full dentures H/O spleen injury History of cardiovascular stress test History of pelvic hematoma History of stress test Hoarseness Hyperlipemia Impaired fasting glucose Incisional hernia without mention of obstruction or gangrene Injury of head and neck Injury, spleen, with capsular tears Leg pain Loss of hearing Osteoarthritis Peptic ulcer disease Pneumohemothorax, traumatic Post-menopausal Pseudocyst of pancreas Rheumatoid arthritis S/P arteriogram of extremity SBO (small bowel obstruction) Shortness of breath Smoker Spleen hematoma Ulcer Wears glasses Home Medications atorvastatin 20 mg tablet 20 mg PO QHS cholesterol 05/28/19 [History Last Taken 10/08/22] carvedilol 25 mg tablet 25 mg PO BID BP 05/28/19 [History Last Taken 05/16/23] spironolactone 25 mg tablet 25 mg PO DAILY BP 05/28/19 [History Last Taken 10/08/22] alprazolam 0.5 mg tablet 0.5 mg PO TID ANXIETY 02/12/21 [History Last Taken 10/08/22] psyllium 1 packet PO DAILY constipation 02/12/21 [History Last Taken Unknown] Lactobacillus acidophilus 20 billion cell capsule (Florajen Acidophilus) 10 mg PO DAILY SUPPLEMENT 02/13/22 [History Last Taken 10/08/22] clopidogrel 75 mg tablet 75 mg PO DAILY BLOOD THINNER 07/14/22 [History Last Taken 05/16/23] acetaminophen 500 mg tablet 1,000 mg PO Q6H PRN Pain 07/19/22 [History Last Taken 10/08/22] nicotine 14 mg/24 hr daily transdermal patch 14 mg transdermal DAILY 30 days #30 ea 10/12/22 [Rx Last Taken Unknown] pantoprazole 40 mg tablet,delayed release 40 mg PO BID 30 days #60 tabs 10/12/22 [Rx Last Taken Unknown] levalbuterol tartrate 45 mcg/actuation aerosol inhaler 2 inh inhalation Q6H #15 grams 10/31/22 [Rx Last Taken Unknown] fluticasone fur. 200 mcg-umeclid 62.5 mcg-vilant 25 mcg inhalat.powder (Trelegy Ellipta) 1 inh inhalation DAILY ASTHMA #60 ea 12/22/22 [Rx Last Taken Unknown] guaifenesin 1,200 mg tablet, extended release 12 hr 1,200 mg PO Q12H #60 tabs 01/08/23 [Rx Last Taken Unknown] gabapentin 300 mg capsule 600 mg PO .qid nerve 04/18/23 [History Last Taken 05/16/23] tramadol 50 mg tablet 50 mg PO Q6H 04/18/23 [History Last Taken 05/16/23] prednisone 20 mg tablet 60 mg (3 x 20 mg) PO QDAY #15 tabs 04/25/23 [Rx Last Taken Unknown] cilostazol 100 mg tablet 100 mg PO BID 05/15/23 [History Last Taken Unknown] oxycodone 5 mg tablet 5 mg PO Q8H PRN pain 5 days #15 tabs 05/18/23 [Rx Last Taken Unknown] rivaroxaban 15 mg (42)-20 mg (9) tablets in a starter pack (Xarelto DVT-PE Treatment 30-Day Starter) See Rx Instructions PO .COMPLEX #51 tabs 05/18/23 [Rx Last Taken Unknown] rivaroxaban 15 mg (42)-20 mg (9) tablets in a starter pack (Xarelto DVT-PE Treatment 30-Day Starter) See Rx Instructions PO .COMPLEX #51 tabs 05/19/23 [Rx Last Taken Unknown] Allergy/AdvReac Type Severity Reaction Status Date / Time amlodipine Allergy Unknown Verified 05/18/23 23:02 clonidine Allergy Unknown Verified 05/18/23 23:02 adhesive AdvReac Rash Verified 05/18/23 23:02 codeine AdvReac Nausea Verified 05/18/23 23:02 fentanyl AdvReac Other Verified 05/18/23 23:02 Family History Mother Heart disease Hypertension Diabetes Sister Hypertension Brother Hypertension Sister Hypertension Cervical cancer Brother Pancreatic cancer Surgical History H/O colostomy H/O: History of hernia repair Hx of cervical spine surgery Social History household members: spouse housing: house Smoking Status: Current every day smoker tobacco type: cigarettes Electronic Cigarette Use: not used second hand exposure: Yes alcohol intake: current alcohol intake frequency: a few times a week substance use type: does not use caffeine: Yes what type of physical activity do you participate in: bicycling frequency: 1-2 times per week EXAM Physical Exam Const Vital Signs: 05/18/23 22:58 05/18/23 23:01 05/18/23 23:36 Temperature 98.9 F 98.9 F Temperature Source Temporal Temporal Pulse Rate 114 H 109 H Respiratory Rate 20 H 19 H Respiratory Effort Normal Non-Labored Respiratory Pattern Normal Blood Pressure 177/97 H 177/97 H Blood Pressure Mean 123 123 Pulse Ox 95 99 Oxygen Delivery Method 05/19/23 01:00 Temperature Temperature Source Pulse Rate 86 Respiratory Rate 20 H Respiratory Effort Respiratory Pattern Blood Pressure 128/78 H Blood Pressure Mean 94 Pulse Ox 97 Oxygen Delivery Method Room Air MDM MDM MDM Narrative Medical decision making narrative: HISTORY OF PRESENT ILLNESS: 68-year-old female here with concern for DVT/PE. States she was recently diagnosed with DVT. Notes she has not been able to fill her Xarelto secondary to her pharmacy being out and then secondary to issues with transportation as her got off work after the drugstore close. She states she has been feeling more bloated than usual. She does note intermittent chest pain earlier this evening. She spoke to her daughter and her daughter was concerned about her having a blood clot in her lung. She also notes fever and fatigue. REVIEW OF SYSTEMS: Pertinent positives: Chest pain, bloating, fever Pertinent negatives: Syncope PHYSICAL EXAM: Nursing triage notes reviewed, Vital signs reviewed Constitutional: please see mdm HENT: MMM Eyes: Pupils equal round and reactive to light, Extraocular muscles intact Neck: No stridor, no JVD, full neck ROM Lungs: Clear to auscultation, No wheezing or rales. No increased work of breathing, no conversational dyspnea, no accessory muscle use, no nasal flaring. No respiratory distress noted Heart: Regular rate and rhythm, No murmurs, No rubs and No gallops, 2+ distal pulses (radial, femoral, posterior tibial) in all extremities Abdomen: Soft, there is no tenderness, rigidity, rebound or guarding, no obvious peritoneal signs, no palpable pulsatile abdominal masses, no auscultated abdominal bruit : No CVAT Extremities: No edema Neuro: No focal neurological deficits, cranial nerves II through XII intact, 5/5 strength in all extremities. Intact sensation to light touch in all extremities, 2+ reflexes bilateral patella tendons. Normal gait. No ataxia. Skin: No rash or lesions noted MEDICAL DECISION MAKING: Chief Complaint: Chest pain External records reviewed: No ovenous duplex ultrasound noted in her chart Factors affecting care: DVT, GERD, anxiety, PAD, degenerative disc disease, recent prescribe Xarelto ALL IMAGES (IF OBTAINED) HAVE BEEN PERSONALLY REVIEWED AND INTERPRETED BY MYSELF. EKG with normal sinus rhythm, normal axis, normal intervals, no obvious STEMI, no evidence of right heart strain MDM Narrative: Patient was initially tachycardic, hypertensive. Heart lung exam was unremarkable. She had symmetric pulses and well-perfused extremities. I considered the following differential diagnosis: PE, DVT, ACS, arrhythmia, anemia, anxiety I obtained a CT scan of the chest rule out PE. Also obtain labs rule out arrhythmia, anemia or signs of ACS. No signs of heart failure. No signs of arrhythmia. I gave the patient her previously prescribed Xarelto empirically. CT PE study was negative. No clear life-limiting etiology to be ascertained. Patient is appropriate for discharge home. Arranged meds to beds to have the patient's Xarelto filled. The patient and/or family, caregivers express understanding. The patient and/or family, caregivers agrees with the plan. Shared decision making: I will have a discussion with the patient and or visitors regarding risk/benefits of further testing or admission. They will be made aware of of the risk/benefits inherent in this decision they will be given the opportunity to voice understanding. Total critical care time today provided was at least 0 minutes. This excludes separately billable procedures. Critical care time (if documented) is secondary to the patient having high probability of clinically significant/life threatening deterioration in the patient's condition which required my urgent intervention. Lab Data Attestation: I reviewed the patient's lab results. Lab results narrative: CBC with leukocytosis suggestive of systemic summation, with anemia, no thrombocytopenia BMP without evidence of significant electrolyte abnormalities (noted mild hyponatremia), no anion gap, no acute kidney injury. Troponin is negative, no evidence of myocardial ischemia BNP within normal limits suggestive of no evidence of heart strain Labs: Laboratory Results - last 24 hr 08/12/23 00:55 WBC 11.3 H RBC 3.53 L Hgb 10.5 L Hct 33.1 L MCV 93.8 MCH 29.7 MCHC 31.7 L RDW Std Deviation 53.2 H RDW Coeff of Renea 15.5 H Plt Count 401 MPV 9.5 Immature Gran % (Auto) 0.400 Neut % (Auto) 72.1 H Lymph % (Auto) 13.9 L Scott % (Auto) 11.9 H Eos % (Auto) 1.3 Baso % (Auto) 0.4 Absolute Neuts (auto) 8.1 H Absolute Lymphs (auto) 1.57 Nucleated RBC % 0 Sodium 132 L Potassium 4.2 Chloride 98 Carbon Dioxide 30.0 Anion Gap 4 L BUN 11 Creatinine 0.94 Estim Creat Clear Calc 66.49 Est GFR (MDRD) Af Amer 76 Est GFR (MDRD) Non-Af 63 BUN/Creatinine Ratio 11.7 Glucose 116 H Calcium 9.2 Troponin I High Sens 4 B-Natriuretic Peptide 79.2 Radiography Diagnostic Testing: Clinical Impression(s) from Imaging Studies Chest CTA 05/19/23 00:43 IMPRESSION: 1. COPD with patchy bilateral groundglass pulmonary infiltrate. 2. No pulmonary embolus identified. 3. Atherosclerotic disease. 4. Other nonurgent findings within body of report. Electronically Signed: Shine Lira MD at 2:09 EDT , Discharge Plan Triage Chief Complaint: General Illness ED Provider: Nnamdi Diaz Dx/Rx/DC Orders Clinical Impression: DVT (deep venous thrombosis), Chest pain Instructions: Rivaroxaban Oral tablet, DVT Dc Prescriptions: New Xarelto DVT-PE Treat 30d Start 15 mg (42)- 20 mg (9) tablets,dose pack See Rx Instructions .ROUTE .COMPLEX Qty: 51 0RF Rx Instructions: take one-15 mg tablet twice daily for 21 days, then one-20 mg tablet once daily; must take with meal/food No Action Florajen Acidophilus 20 billion cell capsule 10 mg PO DAILY levalbuterol tartrate 45 mcg/actuation HFA aerosol inhaler 2 inh inhalation Q6H Qty: 15 11RF tramadol 50 mg tablet 50 mg PO Q6H carvedilol 25 MG tablet 25 mg PO BID Patient Comments: BP atorvastatin 20 MG tablet 20 mg PO QHS Patient Comments: cholesterol spironolactone 25 MG tablet 25 mg PO DAILY alprazolam 0.5 mg tablet 0.5 mg PO TID psyllium Packet 1 packet PO DAILY gabapentin 300 mg capsule 600 mg PO .qid Patient Comments: TAKE 2 CAPSULES BY MOUTH DAILY AT BEDTIME FOR 180 DAYS. clopidogrel 75 mg tablet 75 mg PO DAILY acetaminophen 500 mg Tablet 1,000 mg PO Q6H PRN (Reason: Pain) nicotine 14 mg/24 hr Patch 24 Hour 14 mg transdermal DAILY 30 Days Qty: 30 0RF pantoprazole 40 mg Tablet,Delayed Release (Dr/Ec) 40 mg PO BID 30 Days Qty: 60 0RF cilostazol 100 mg tablet 100 mg PO BID Patient Comments: TAKE 1 TABLET BY MOUTH 2ETIMES A DAYP Trelegy Ellipta 200-62.5-25 mcg blister with device 1 inh inhalation DAILY Qty: 60 11RF guaifenesin 1,200 mg tablet extended release 12hr 1,200 mg PO Q12H Qty: 60 6RF prednisone 20 mg tablet 60 mg PO QDAY Qty: 15 0RF Rx Instructions: administer with food or milk oxycodone 5 mg tablet 5 mg PO Q8H PRN (Reason: pain) 5 Days Qty: 15 0RF Xarelto DVT-PE Treat 30d Start 15 mg (42)- 20 mg (9) tablets,dose pack See Rx Instructions PO .COMPLEX Qty: 51 0RF Rx Instructions: take one-15 mg tablet twice daily for 21 days, then one-20 mg tablet once daily; must take with meal/food PO Primary Care Provider: Nate Gray Referrals: Nate Gray MD [Primary Care Provider] - Activity Restrictions/Additional Instructions: Thank you for trusting us with your care today! Please take Xarelto as prescribed. If you develop any bleeding or head trauma please return to the emergency department immediately. Please return to the emergency department if your symptoms change or worsen. Specifically develop chest pain, shortness of breath or if you lose consciousness. Please follow with your primary care physician for further outpatient evaluation and management. Disposition Disposition: Home, Self Care
--- NOTE | 2023-05-19 00:43 | EKG12_ITS ---
Test Reason : Dysrhythmia Blood Pressure : / mmHG Vent. Rate : 097 BPM Atrial Rate : 097 BPM P-R Int : 162 ms QRS Dur : 084 ms QT Int : 342 ms P-R-T Axes : 034 065 031 degrees QTc Int : 434 ms Normal sinus rhythm Normal ECG Confirmed by HUGO KULKARNI, AMIRA ([id number]), sound editor MICHELLE JOSUE ([id number]) on 05/21/2023 8:46:32 AM Referred By: Joe Confirmed By:RAGHAV ARIAS MD
--- NOTE | 2023-05-19 00:43 | CT_ITS ---
STUDY: CTA CHEST REASON FOR EXAM: Female, 68 years old. Chest pain recent diagnosis of DVT TECHNIQUE: CT angiogram of chest was performed with the intravenous administration of 100 ml Isovue-370. Post-processing of the angiographic images was performed, with MIP and MPR reconstructions. Individualized dose optimization techniques were used for this CT. COMPARISON: Low-dose chest CT from 01/16/2023 and CTA chest from 12/30/2019 FINDINGS: PULMONARY ARTERIES: No pulmonary arterial filling defects identified. AORTA AND VISUALIZED GREAT VESSELS: Atherosclerosis with no thoracic aortic aneurysm or dissection. Great vessels are patent. HEART AND PERICARDIUM: Normal size heart. Coronary arterial calcifications noted. No significant pericardial effusion. MEDIASTINUM AND PARISH: No mediastinal or hilar adenopathy. Esophagus is unremarkable. LUNGS, PLEURA AND LARGE AIRWAYS: Hyperexpanded lungs and centrilobular pulmonary emphysematous changes again noted. Slightly worsening bilateral, multifocal patchy groundglass alveolar opacities. Stable mild scarring within mid to lower lungs. No discrete pulmonary mass. No pneumothorax or pleural effusion. BONES: Chronic left rib fractures. CHEST WALL: Stable intramuscular lipoma posterior left shoulder. VISUALIZED ABDOMEN: Metallic coils within left upper abdomen. Incompletely imaged left renal cyst, follow-up as clinically warranted. CT/CTA Chest W/WO Contrast IMPRESSION: 1. COPD with patchy bilateral groundglass pulmonary infiltrate. 2. No pulmonary embolus identified. 3. Atherosclerotic disease. 4. Other nonurgent findings within body of report. Electronically Signed: Shine Lira MD at 2:09 EDT ,
[2023-05-19 01:00] VITALS: BP 128/78; PULSE 86; RESP 20; O2SAT 97
[2023-05-19 01:02] LABS: Absolute Lymphocyte Count 1.57 X10^3/uL (0.83-4.51); Absolute Neutrophil Count 8.1 X10^3/uL (2.0-7.7); Basophil# 0.04 X10^3/uL; Basophil% 0.4 % (0-1); Eosinophil# 0.15 X10^3/uL; Eosinophils% 1.3 % (0-5); Hematocrit 33.1 % (37-47); Hemoglobin 10.5 g/dL (12.0-15.0); Lymphocyte # 1.57 X10^3/ul (0.83-4.51); Lymphocyte % 13.9 % (19-41); Mean Corp Hgb Conc 31.7 g/dL (32-36); Mean Corpuscular Hgb 29.7 pg (27.0-32.0); Mean Corpuscular Volume 93.8 fL (81-99); Mean Platelet Vol. 9.5 fl (6.2-12.0); Monocyte# 1.34 X10^3/uL; Monocyte% 11.9 % (0-10); NRBC Flagged by Analyzer 0 % (0-5); Neutrophil # 8.11 X10^3/uL (2.7-7.7); Neutrophil % 72.1 % (47-70); Platelet Count 401 K/mm3 (150-450); RBC Distribution Width CV 15.5 % (11.6-14.6); RBC Distribution Width SD 53.2 fl (35.1-43.9); Red Blood Count 3.53 M/mm3 (4.2-5.4); White Blood Count 11.3 K/mm3 (4.4-11.0)
[2023-05-19] MEDS: Rivaroxaban 20 MG Tablet PO (01:17)
[2023-05-19 01:23] LABS: Anion Gap 4 (5-15); BUN 11 mg/dL (7-18); BUN/Creat Ratio 11.7 RATIO (10-20); Calcium,Total 9.2 mg/dL (8.5-10.1); Chloride 98 mmol/L (98-107); Creatinine, Serum 0.94 mg/dL (0.55-1.02); EST Glomerular Filtration Rate 63 mL/min (>60); Est Glom Filt Rate - Afr Amer 76 mL/min (>60); Estimated Creatinine Clearance 66.49 ml/min; Glucose 116 mg/dL (74-106); Potassium 4.2 mmol/L (3.5-5.1); Sodium Level 132 mmol/L (136-145); Troponin-I HS 4 pg/mL (3.0-54.0)
[2023-05-19 01:24] LABS: BNP,B-Type NATRIURETIC PEPTIDE 79.2 pg/mL (0-100)
[2023-05-19 03:14] VITALS: BP 131/71; PULSE 64; RESP 18; O2SAT 99
== END 2023-05-19 03:14 | disposition home or self-care (01) ==
PROVIDERS: Emergency Provider Emergency Medicine; PCP Internal Medicine; Visit Provider Emergency Medicine
DX: I82.402 Acute embolism and thrombosis of unspecified deep veins of left lower extremity (principal); J43.9 Emphysema, unspecified; R07.9 Chest pain, unspecified; F17.210 Nicotine dependence, cigarettes, uncomplicated; E78.5 Hyperlipidemia, unspecified; K21.9 Gastro-esophageal reflux disease without esophagitis; I10 Essential (primary) hypertension; M79.605 Pain in left leg; Z79.899 Other long term (current) drug therapy; Z79.01 Long term (current) use of anticoagulants; Z48.812 Encounter for surgical aftercare following surgery on the circulatory system
CPT/HCPCS: 71275; 80048; 83880; 84484; 85025; 87428; 93005; 93926; 93971; 99285; Q9967; A4216

== ENCOUNTER → 2023-05-18 | Outpatient (CLI) | payer MEDICARE, SELFPAY ==
--- NOTE | 2023-05-18 12:29 | VDLE_ITS ---
Reason For Study: Left leg pain RIGHT LEFT CFV is compressible, spontaneous, phasic, GSV is normal. competent and demonstrates normal CFV is compressible, spontaneous, phasic, augmentation. competent, and demonstrates normal Procedure augmentation. This is a venous duplex using B-mode, color FV is compressible, spontaneous, phasic, flow and spectral Doppler. competent and demonstrates normal Exam performed in department. augmentation. A preliminary report was called and/or faxed POP V is compressible, spontaneous, phasic, to Ella HERNANDEZ. competent and demonstrates normal augmentation. T/P Trunk is compressible. LT PerV is compressible. Acute deep vein thrombosis is noted in the PTV. It is dilated and NONCOMPRESSIBLE. VL/Venous Duplex US, Unilateral Interpretation Summary Acute deep vein thrombosis is noted in the left posterior tibial vein. Ordering Physician: Ella Cortez Referring Physician: Nate Gray M.D. Performed By: Gris Jung RVT
--- NOTE | 2023-05-18 12:29 | ADUL_ITS ---
Reason For Study: Left leg pain, s/p angiogram, SFA stent Left Velocities Ext Iliac Artery, dist = 152.2 cm./sec. Common Femoral Artery, mid = 308.4 cm./sec. SFA origin, 244.4 cm/sec. SFA prox, Stent 1 prox, 126.4 cm/sec. SFA prox, Stent 1 mid, 106.7 cm/sec. SFA prox, Stent 1 distal, 113.3 cm/sec. SFA prox, between stents, 124.2 cm/sec. SFA prox/mid, Stent 2 prox, 124.2 cm/sec. SFA mid, Stent 2 mid, 99.7 cm/sec. SFA distal, Stent 2 distal, 130.8 cm/sec. Profunda Femoral Artery = 144.1 cm./sec. Popliteal Artery, mid = 108.9 cm./sec. Post. Tibial Artery, prox = 79.3 cm./sec. Post Tibial Artery, mid = 121.6 cm./sec. Post Tibial Artery, dist. = 66.8 cm./sec. Peroneal Artery, prox = 35.4 cm./sec. Peroneal Artery, mid = 56.3 cm./sec. Peroneal Artery,dist. = 48.5 cm./sec. Ant.Tibial Artery, prox = 46.8 cm./sec. Ant Tibial Artery, mid = 44.1 cm./sec. Ant. Tibial Artery, distal = 54.6 cm./sec. Procedure Exam performed in department. VL/US Art Duplex Unilat Lower Ext Interpretation Summary Left SFA stents patent with normal velocities and no evidence of stenosis. Left common femoral artery >50% stenosis Ordering Physician: Ella Cortez Referring Physician: Nate Gray M.D. Performed By: Gris Jung RVT
== END | disposition home or self-care (01) ==
LOC: CVS 12:27
PROVIDERS: PCP Internal Medicine; Referring Provider Physician Assistant; Visit Provider Physician Assistant
DX: M79.605 Pain in left leg (principal); Z48.812 Encounter for surgical aftercare following surgery on the circulatory system
CPT/HCPCS: 93926; 93971

== ENCOUNTER → 2023-05-23 | Outpatient (CLI) | payer MEDICARE, SELFPAY ==
[2023-05-23 14:26] LABS: Hemoglobin 10.7 g/dL (12.0-15.0)
== END | disposition home or self-care (01) ==
LOC: LAB 13:30
PROVIDERS: PCP Internal Medicine; Referring Provider Physician Assistant; Visit Provider Physician Assistant
DX: D64.9 Anemia, unspecified (principal); I77.9 Disorder of arteries and arterioles, unspecified; I82.409 Acute embolism and thrombosis of unspecified deep veins of unspecified lower extremity
CPT/HCPCS: 36415; 85018

== ENCOUNTER → 2023-05-29 | Outpatient (CLI) | payer MEDICARE, SELFPAY ==
[2023-05-29 12:12] LABS: Hemoglobin 9.7 g/dL (12.0-15.0)
== END | disposition home or self-care (01) ==
LOC: LAB 12:01
PROVIDERS: PCP Internal Medicine; Referring Provider Physician Assistant; Visit Provider Physician Assistant
DX: D64.9 Anemia, unspecified (principal); I82.409 Acute embolism and thrombosis of unspecified deep veins of unspecified lower extremity
CPT/HCPCS: 36415; 85018

== ENCOUNTER → 2023-06-06 | Outpatient (CLI) | payer MEDICARE, SELFPAY ==
--- NOTE | 2023-06-06 07:55 | ART_ITS ---
Reason For Study: S/P Lt Fem Endart / SFA Stent Procedure A bilateral lower extremity continuous wave Doppler with analog waveform analysis and ankle brachial indexes. Left Segmental Pressures Left brachial= 117mmHg. Left posterior tibial artery = 119mmHg. Left dorsalis pedis artery = 95mmHg. Left digit = 62 mmHg. The left posterior tibial artery waveforms are biphasic. The left dorsalis pedis waveforms are biphasic. Right Segmental Pressures Right brachial= 111mmHg. Right posterior tibial artery = 53mmHg. Right dorsalis pedis artery = 44mmHg. Right digit = 21 mmHg. The right posterior tibial artery waveforms are monophasic. The right dorsalis pedis waveforms are monophasic. Indices The right ankle brachial index by the posterior tibial artery is 0.45. The right ankle brachial index by the dorsalis pedis is 0.38. The right digital-brachial index is 0.18. The left ankle brachial index by the posterior tibial artery is 1.02. The left ankle brachial index by the dorsalis pedis is 0.81. The left digital-brachial index is 0.53. VL/Ankle Brachial Index Interpretation Summary Right SHAKIR 0.45, severe arterial insufficiency. Doppler/PVR waveforms of the rig ht ankle severely diminished. Left SHAKIR 1.02, normal. Doppler/PVR waveforms of the left leg normal at rest. Ordering Physician: Ella Cortez Referring Physician: Nate Gray M.D. Performed By: Sam Mi RVT
--- NOTE | 2023-06-06 07:55 | VDLE_ITS ---
Reason For Study: LLE Pain / HX DVT RIGHT LEFT CFV is compressible, spontaneous, phasic, GSV is normal. competent and demonstrates normal CFV is compressible, spontaneous, phasic, augmentation. competent, and demonstrates normal Procedure augmentation. This is a venous duplex using B-mode, color FV is compressible, spontaneous, phasic, flow and spectral Doppler. competent and demonstrates normal Exam performed in department. augmentation. The exam was diagnostic. POP V is compressible, spontaneous, phasic, competent and demonstrates normal augmentation. T/P Trunk is compressible. Acute deep vein thrombosis is noted in the PTV. It is dilated and NONCOMPRESSIBLE. LT PerV is compressible. VL/Venous Duplex US, Unilateral Interpretation Summary Acute deep vein thrombosis is noted in the left posterior tibial vein. Unchanged from previous study Ordering Physician: Ella Cortez Referring Physician: Nate Gray M.D. Performed By: Sam Mi RVT
== END | disposition home or self-care (01) ==
LOC: CVS 07:54
PROVIDERS: PCP Internal Medicine; Referring Provider Physician Assistant; Visit Provider Physician Assistant
DX: M79.605 Pain in left leg (principal); I70.212 Atherosclerosis of native arteries of extremities with intermittent claudication, left leg; Z48.812 Encounter for surgical aftercare following surgery on the circulatory system
CPT/HCPCS: 93922; 93971

== ENCOUNTER → 2023-06-07 | Outpatient (CLI) | payer MEDICARE, SELFPAY ==
[2023-06-07 15:59] LABS: Hemoglobin 8.7 g/dL (12.0-15.0)
== END | disposition home or self-care (01) ==
LOC: LAB 14:40
PROVIDERS: PCP Internal Medicine; Referring Provider Physician Assistant; Visit Provider Physician Assistant
DX: I82.409 Acute embolism and thrombosis of unspecified deep veins of unspecified lower extremity (principal); D64.9 Anemia, unspecified
CPT/HCPCS: 36415; 85018

== ENCOUNTER → 2023-06-14 | Outpatient (CLI) | payer MEDICARE, SELFPAY ==
[2023-06-14 11:15] LABS: Hemoglobin 8.6 g/dL (12.0-15.0)
== END | disposition home or self-care (01) ==
LOC: LAB 10:59
PROVIDERS: PCP Internal Medicine; Referring Provider Physician Assistant; Visit Provider Nurse Practitioner Acute Care
DX: D64.9 Anemia, unspecified (principal); J44.9 Chronic obstructive pulmonary disease, unspecified
CPT/HCPCS: 36415; 85018; 87070; 87205

== ENCOUNTER → 2023-06-20 | Outpatient (CLI) | payer MEDICARE, SELFPAY ==
--- NOTE | 2023-06-20 07:22 | CT_ITS ---
HISTORY: RLE atherosclerosis with claudication/rest pain. TECHNIQUE: CTA abdomen and pelvis was obtained the intravenous administration of 100 mL Isovue-370 with sagittal and coronal reconstructed MIP views. Three-dimensional surface rendered sequence of the abdominal aorta was obtained. A radiation dose optimization technique was used for this scan. 625 images. COMPARISON: 03/27/2023. FINDINGS: LOWER CHEST: Mild scarring and atelectasis in the lung bases. BOWEL: Bowel nondilated. Appendectomy. Colonic diverticulosis without focal pericolonic inflammatory change. PERITONEUM: No significant ascites. LIVER: No enhancing mass. GALLBLADDER: Gallbladder present. SPLEEN/PANCREAS/ADRENAL GLANDS: No focal lesions. Coiling between the pancreas and spleen again seen. KIDNEYS: Stable 1.3 cm right upper pole hyperdense lesion. 2.8 cm left renal cyst, previously 3.1 cm. No hydronephrosis. VESSELS: Atherosclerosis of the abdominal aorta without aneurysm or dissection flap. Mild stenosis at the origins of the celiac axis and superior mesenteric artery. Mild stenosis at the origins of the proximal bilateral renal arteries. Patent inferior mesenteric artery. Mild stenosis of the left common iliac artery. Calcified plaque in the left internal iliac artery. Patent left external iliac artery stent. 60-70% stenosis of the left common femoral artery again seen. Adjacent surgical clips and scarring in the left groin. Patent proximal left superficial femoral artery and stent. Patent origin of the left deep femoral artery. Unchanged 11 mm ectasia of the right common iliac artery with short segment dissection and mild stenosis. Mild calcified plaque at the origin of the right internal iliac artery. Patent right external iliac artery stent. New occlusion and thrombus of the right common femoral artery with reconstitution of flow via collaterals. Patent origin of the right deep femoral artery. Occlusion of the proximal right superficial femoral artery again seen. PELVIC ORGANS: Unremarkable. BODY WALL: Anterior mesh repair. OSSEOUS STRUCTURES: Degenerative change. CT/CTA Abd/Pelvis W/WO Contrast IMPRESSION: New short segment occlusion and thrombosis of the right common femoral artery with reconstitution of flow via collaterals. 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 Patent bilateral external iliac artery stents. Mildly decreased size of left renal cyst. Stable 1.3 cm indeterminate right renal lesion, either hyperdense cyst or small solid mass. Recommend follow-up. Colonic diverticulosis without acute diverticulitis. Electronically Signed: Jany Stauffer MD at 8:43 EDT ,
== END | disposition home or self-care (01) ==
LOC: CT 07:21
PROVIDERS: PCP Internal Medicine; Visit Provider Physician Assistant
DX: I77.9 Disorder of arteries and arterioles, unspecified (principal)
CPT/HCPCS: 74174; Q9967; A4216

== ENCOUNTER → 2023-06-28 | Outpatient (CLI) | payer MEDICARE, SELFPAY ==
[2023-06-28 13:53] LABS: Hemoglobin 7.7 g/dL (12.0-15.0)
== END | disposition home or self-care (01) ==
LOC: LAB 13:38
PROVIDERS: PCP Internal Medicine; Referring Provider Physician Assistant; Visit Provider Physician Assistant
DX: D64.9 Anemia, unspecified (principal)
CPT/HCPCS: 36415; 85018

== ENCOUNTER 2023-07-02 09:42 | Outpatient (CLI) | payer MEDICARE, SELFPAY ==
[2023-07-02 10:22] VITALS: BP 121/61; PULSE 79; RESP 16; TEMP 36; O2SAT 100; BMI 32.5
[2023-07-02 11:14] VITALS: BP 118/56; PULSE 82; RESP 16; TEMP 36.3; O2SAT 100
[2023-07-02 12:12] VITALS: BP 147/64; PULSE 76; RESP 16; TEMP 36.2
[2023-07-02 12:41] VITALS: BP 154/72; PULSE 76; RESP 16; TEMP 36.3
== END 2023-07-02 09:43 | disposition home or self-care (01) ==
LOC: MEDOUTP 09:42
PROVIDERS: PCP Internal Medicine; Referring Provider Physician Assistant; Visit Provider Physician Assistant
DX: D64.9 Anemia, unspecified (principal)
CPT/HCPCS: 36415; 36430; 86850; 86900; 86901; 86920; 86922; J7040; P9016; A4216

== ENCOUNTER → 2023-07-06 | Outpatient (CLI) | payer MEDICARE, SELFPAY | END | disposition home or self-care (01) | LOC: LABSPEC 14:10 | PROVIDERS: PCP Internal Medicine; Referring Provider Nurse Practitioner Acute Care; Visit Provider Nurse Practitioner Acute Care | DX: J44.9 Chronic obstructive pulmonary disease, unspecified (principal) | CPT/HCPCS: 87070; 87077; 87186; 87205 ==

== ENCOUNTER → 2023-07-06 | Outpatient (CLI) | payer MEDICARE, SELFPAY ==
--- NOTE | 2023-07-06 09:00 | VDLE_ITS ---
Reason For Study: HX LLE DVT RIGHT LEFT CFV is patent and compressible. GSV is normal. Procedure CFV is compressible, spontaneous, phasic, This is a venous duplex using B-mode, color competent, and demonstrates normal flow and spectral Doppler. augmentation. Exam performed in department. FV is compressible, spontaneous, phasic, The exam was diagnostic. competent and demonstrates normal Regression from previous study on 06/06/2023. augmentation. POP V is compressible, spontaneous, and phasic. T/P Trunk is compressible. LT PerV is compressible. Acute deep vein thrombosis is noted in the PTV. It is dilated and PARTIALLY COMPRESSIBLE with hypoechoic intraluminal echoes. VL/Venous Duplex US, Unilateral Interpretation Summary Acute deep vein thrombosis is noted in the right posterior tibial vein. Ordering Physician: Ella Rosales Referring Physician: Nate Gray M.D. Performed By: Sam Mi RVT
== END | disposition home or self-care (01) ==
LOC: CVS 09:00
PROVIDERS: PCP Internal Medicine; Referring Provider Physician Assistant; Visit Provider Physician Assistant
DX: I82.409 Acute embolism and thrombosis of unspecified deep veins of unspecified lower extremity (principal); J44.9 Chronic obstructive pulmonary disease, unspecified; M79.605 Pain in left leg
CPT/HCPCS: 87070; 87077; 87186; 87205; 93971

== ENCOUNTER 2023-07-13 10:44 | Inpatient (IN) | payer MEDICARE, SELFPAY ==
--- NOTE | 2023-07-10 08:40 | EKG12_ITS ---
Test Reason : PRE OP Blood Pressure : / mmHG Vent. Rate : 078 BPM Atrial Rate : 078 BPM P-R Int : 160 ms QRS Dur : 070 ms QT Int : 372 ms P-R-T Axes : -09 079 055 degrees QTc Int : 424 ms Normal sinus rhythm Low voltage QRS Borderline ECG Confirmed by AFIA KULKARNI, SHERIF ([id number]), field map editor ANEL HERRING ([id number]) on 07/10/2023 2:11:48 PM Referred By: Alec Lopez Confirmed By:SHERIF OREILLY MD
[2023-07-10 09:46] LABS: Hematocrit 31.4 % (37-47); Hemoglobin 9.7 g/dL (12.0-15.0); Mean Corp Hgb Conc 30.9 g/dL (32-36); Mean Corpuscular Hgb 26.8 pg (27.0-32.0); Mean Corpuscular Volume 86.7 fL (81-99); Mean Platelet Vol. 9.1 fl (6.2-12.0); Platelet Count 303 K/mm3 (150-450); RBC Distribution Width SD 47.8 fl (35.1-43.9); Red Blood Count 3.62 M/mm3 (4.2-5.4); White Blood Count 9.5 K/mm3 (4.4-11.0)
[2023-07-10 10:00] LABS: International Normalized Ratio 1.1; Prothrombin Time (Protime)PT. 14.1 SECONDS (11.7-14.9)
[2023-07-10 10:01] LABS: Partial Thromboplast Time 30.5 Seconds (24.1-36.2)
[2023-07-10 10:33] LABS: Anion Gap 6 (5-15); BUN 12 mg/dL (7-18); BUN/Creat Ratio 13.4 RATIO (10-20); Calcium,Total 9.1 mg/dL (8.5-10.1); Chloride 100 mmol/L (98-107); EST Glomerular Filtration Rate 66 mL/min (>60); Est Glom Filt Rate - Afr Amer 80 mL/min (>60); Glucose 99 mg/dL (74-106); Potassium 4.8 mmol/L (3.5-5.1); Sodium Level 131 mmol/L (136-145)
[2023-07-13] VITALS (11 sets, daily range): BP systolic 107–146; BP diastolic 59–111; PULSE 79–114; RESP 14–18; TEMP 36.2–36.7; O2SAT 93–98; BMI 33.3
[2023-07-13] MEDS: Lactated Ringers 1,000 ML 15 ML IV (06:20)
--- NOTE | 2023-07-13 06:30 | IMM_PTH ---
PATIENT: BAHMAN MICHELE LOC: [facility] U#:[id number] AGE/SX: 68/F ROOM: ICU02 RE07/13/[address]: Dr. Alec Lopez MD : 1955 BED: 1 DIS: 07/19/2023 SPEC #: [id number] RECD: 07/16/23 07:41 STATUS: ARLENE REQ #: [id number] JUSTA: 07/13/23 06:[address]: Ra Lidiahsaan DEPT: IMMUNOHISTOCHEMISTRY RECD BY: Aidee Chance ENTERED: 07/16/23 07:41 SP TYPE: IMMUNO OTHR DR: MD Dr. Nate Castrejon MD Tissues: B - Stomach, NOS Procedures: H Pylori (initial) PHYSICIAN & INSTITUTION [place] [id number] SPECIMEN INFORMATION: Tissue Source: B - Gastric body Clinical Info: GERD, abdominal pain, anemia Specimen Number: [id number] CPT code: 51797 METHODOLOGY: Deparaffinized sections of prefer/formalin-fixed tissue or PAP/DQ stained slides are incubated with monoclonal/polyclonal antibodies/oligonucleotide probes. Localization is made via biotin free immunoperoxidase method. Appropriate controls are performed and reacted as expected. Results on target cell population are indicated in the following table: RESULTS: ANTIBODY / CLONE RESULT Block B H Pylori (polyclonal) negative These tests were developed and their performance characteristics determined by [facility]. They may not have been cleared or approved by the U.S. Food and Drug Administration. The FDA has determined that such clearance or approval is not necessary. The above immunohistochemical/dualISH markers are ordered and reviewed by the Pathologist. INTERPRETATION: B. Gastric body, biopsy: Negative for Helicobacter pylori organisms. AM:jj 07/16/2023
--- NOTE | 2023-07-13 06:30 | EGD_PTH ---
PATIENT: BAHMAN MICHELE LOC: [facility] U#:[id number] AGE/SX: 68/F ROOM: ICU02 RE07/13/[address]: Dr. Alec Lopez MD : 1955 BED: 1 DIS: 07/19/2023 SPEC #: [id number] RECD: 07/13/23 08:32 STATUS: ARLENE AVILEZ #: [id number] JUSTA: 07/13/23 06:[address]: Alejandro Murillo DEPT: SURGICAL PATHOLOGY RECD BY: Winter Kenyon ENTERED: 07/13/23 10:25 SP TYPE: EGD BIOPSY [facility] DR: MD Dr. Nate Castrejon MD Tissues: A - Duodenum, NOS B - Gastric mucous membrane C - Esophagus, NOS D - Cecum, NOS Procedures: Special Stain Group II Surgery Specimen Level IV Alcian Blue/PAS (control) HEADER OPERATION: Colonoscopy, EGD, biopsy, polypectomy PRE-OP DIAGNOSIS: GERD, abdominal pain, anemia TISSUE SUBMITTED: A - Duodenum biopsy, B - Gastric body biopsy, H. pylori and path, C - Distal esophagus biopsy, D - Polyp cecum MICROSCOPIC DIAGNOSIS A. Duodenum, biopsy: No pathologic change. B. Gastric body, biopsy: Minimal chronic inflammation. See comment. C. Distal esophagus, biopsy: Gastroesophageal junctional mucosa with mild chronic inflammation. No evidence of goblet cell metaplasia. See comment. D. Cecal polyp, biopsy: Fragments of tubular adenoma. AM:jj 07/16/2023 COMMENT B. The results of immunohistochemistry for Helicobacter pylori will be reported separately ([id number]). C. Alcian blue/PAS stain with matched control supports the above diagnosis. MICROSCOPIC DESCRIPTION Slides are reviewed. GROSS DESCRIPTION A - Received in fixative is one container labeled with the patient's name and designated duodenum biopsy. The specimen consists of multiple irregular fragments of light hadley soft tissue that in aggregate measure 1.0 x 0.5 x 0.1 cm. The specimen is totally submitted in one cassette. B - Received in fixative is one container labeled with the patient's name and designated gastric body biopsy. The specimen consists of one irregular fragment of light hadley soft tissue that measures 0.8 x 0.6 x 0.1 cm. The specimen is totally submitted in one cassette. C - Received in fixative is one container labeled with the patient's name and designated distal esophagus. The specimen consists of one irregular fragment of light hadley soft tissue that measures 0.6 x 0.6 x 0.1 cm. The specimen is totally submitted in one cassette. D - Received in fixative is one container labeled with the patient's name and designated cecal polyp. The specimen consists of multiple irregular fragments of light hadley soft tissue that in aggregate measure 1.7 x 1.5 x 0.2 cm. The specimen is totally submitted in one cassette. / AM:jj 07/13/2023 TC:3 CPT: 28593 x4, 12134
--- NOTE | 2023-07-13 06:35 | PCM.HP.BLA ---
History and Physical Date of Admission: 07/13/23 67 F who presents to the office today for Hospitalization prior to 2017 for diverticulitis with perforation requiring diverting ileostomy. [facility] hospitalization 04.23.17-04.25.[address] Johnson consulted with endoscopy performed. Known alcohol abuse drinking up to 7beers that day. EGD and Colonoscopy 04.24.17 EGD focal intestinal metaplasia. Colonoscopy colorectal anastomosis at 12-15cm; blind pouch of low rectum up to 25cm with healthy staple line; 2 hyperplastic polyps. Remaining exam without acute/chronic abnormality. [facility] ED 06.06.19 noting recent hospitalization at [facility] for splenic hematoma with coiling performed and 4 units of blood administered. Presented to [facility] ED for LUQ abd pain and decreased appetite. Workup noted upward trending hgb; hematoma appears larger but no active bleed seen. Discharged home hemodynamically stable. [facility] hospitalization 12.30.19-01.01.20 where she was treated for biliary dyskinesia with recommendation to pursue outpatient surgery; this was not pursued. CTA 12.30.19 atherosclerotic aorta changes; colonic resection postop changes; mild nonspecific ileus without SBO or pneumoperitoneum; dilated gallbladder without stones; splenic artery embolization coils; renal cyst; colonic diverticulosis. ? US RUQ 12.30.19 hepatic measurement 16.4cm without fatty infiltration; negative Olivier?s sign; multiple tiny gallstones. ? HIDA 12.31.19 EF <5% [facility] hospitalization 5.8.21-5.9.21 for early small bowel obstruction which resolved. General surgery consulted without intervention required. Vascular Dr. Lopez established for peripheral arterial occlusive disease. First treated by Dr. Amato with angioplasty and stenting of right external iliac. Dr. Lopez operated 07.20.22 performing femoral endarterectomy, flap with angioplasty and stenting. Wound later complicated and referred to wound healing center. ? CTA 06.28.22 scattered colonic diverticulosis; ventral hernia mesh; renal cysts; occlusion of right and left SFA with reconstitution at popliteals. [facility] ED 10.04.22 with N/V/D and weakness for 8 days with cough and SOB. No acute/chronic findings noted and discharged home. ? Biochemical CBC (hgb 8.7), CMP, lipase without acute concern. ? CT abd/pel left external iliac stent graft; left groin inflammatory stranding with surgical clips; ventral hernia mesh noted. *[facility] hospitalization 10.09.22-10.12.22. ED presentation with SOB and weakness and hypoxia with history of COPD and current cigarette smoker (rolls her own). Biochemical workup noted hgb 7.4 and admitted for GIB concern with history of duodenal ulcer. GI consulted and endoscopy performed. ? EGD 10.10.22 irregular Zline 37cm; medium hiatal hernia; three AVM of duodenum, heater probe. OV 02.15.23 continues to have stomach upset/nausea that she feels is related to increased stress r/t back pain/leg pain (established with Dr. Diaz with referral to pain management) and diet. Notes dietary triggers of red sauce, vegetables, red meat. Eats a lot of chicken, cheese, eggs, toast. Drinks approximately 12 cups of caffeinated coffee with cream a day, diet coke and nightly green tea; recently started drinking 3 beers a night lately r/t pain, history of alcoholism 12beers/night for 45 years. ROS Const Constitutional: No anorexia, fatigue, fever(s), weight change or sleep problems Eyes Eyes: No change in vision ENT ENT: No abnormal hearing, difficulty swallowing, mouth lesions, tongue swelling or throat swelling Resp Respiratory: No cough or shortness of breath Cardio Cardiology: No chest pain at rest, chest pain with exertion, shortness of breath or dyspnea on exertion Gastro GI: No difficulty swallowing Genitourinary-Female: No difficulty urinating or burning urination Musc Musculoskeletal: No joint pain, joint swelling, muscle weakness or decreased muscle mass Skin Skin: No hair loss in leg, yellowing of the eye, itchy eyes, rash, skin ulcer or skin swelling Neuro Neurology: No abnormal hearing, abnormal movements, confusion, unsteady gait/balance or memory loss Psych Psychiatric: No anxiety, No confusion and No memory loss Endo Endocrine: No fatigue or weight change Aller/Imm Allergy/Immunologic: No itchy eyes, throat swelling or tongue swelling Vik/Lymp Hematologic/Lymphatic: No easy bleeding, easy bruising or enlarged lymph nodes Exam Const General: cooperative and comfortable Nutritional Appearance: average body habitus and well nourished [facility] Head: normal to inspection Ears: hearing grossly normal bilaterally Nose: external nose normal Face and sinus: normal facial exam Mouth: oral mucosae normal Throat: posterior oropharynx normal Eyes General: appearance normal, both eyes and all related structures Neck Neck: normal visual inspection Chest Chest palpation & inspection: normal inspection of the chest and normal palpation of entire chest wall Resp Effort & Inspection: normal respiratory effort Auscultation: Bilateral: Clear to Auscultation Cardio Palpation: normal PMI Rate: regular rate Rhythm: regular rhythm GI Inspection: normal to inspection Auscultation: normal bowel sounds Percussion: normal to percussion Palpation: no hepatosplenomegaly Skin General: no rashes or lesions noted Neuro General: patient alert Extrem General: normal to inspection Psych Affect: normal affect Quality Reporting Tobacco Screening ([facility] 138) Smoking Status: Current every day smoker Assessment and Plan Assessment and Plan (1) GERD (gastroesophageal reflux disease): Status: Chronic Plan: She is not having any problems with the gastroesophageal reflux disease at this time. 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 She says that she is drinking because of the pain that she has with claudication. She is scheduled to see pain management. I encouraged her not to drink a lot of alcohol as she did before. She will be continued on PPI therapy. (3) Anemia: Status: Acute Plan: We will repeat her CBC, ferritin, TIBC, reticulocyte in order to evaluate her iron studies to make sure that she will not benefit from iron replacement therapy after undergoing massive upper GI bleed. Orders: Orders Iron Today D36.9 - Benign neoplasm, unspecified site, K21.9 - Gastro-esophageal reflux disease without esophagitis Ferritin Today D36.9 - Benign neoplasm, unspecified site, K21.9 - Gastro-esophageal reflux disease without esophagitis LDH Today K21.9 - Gastro-esophageal reflux disease without esophagitis Iron Binding Capacity,Total Today D36.9 - Benign neoplasm, unspecified site, K21.9 - Gastro-esophageal reflux disease without esophagitis CBC W/Diff, Automated Today D36.9 - Benign neoplasm, unspecified site, K21.9 - Gastro-esophageal reflux disease without esophagitis Retic Panel Count Today K21.9 - Gastro-esophageal reflux disease without esophagitis Haptoglobin Today K21.9 - Gastro-esophageal reflux disease without esophagitis SADA + Protein Elect, Serum Today K21.9 - Gastro-esophageal reflux disease without esophagitis I have examined the patient and the H&P has been reviewed. There are no clinical changes since date of exam.
--- NOTE | 2023-07-13 07:15 | OP.CCLET_ITS ---
07/13/2023 Nate Gray [address] [place] [address] Re : Upper GI endoscopy procedure for Linda Leija Dear Dr. Gray This procedure was performed on Thursday, July 13, 2023. My impressions and recommendations are as follows: Impressions : - Z-line irregular, 38 cm from the incisors. Biopsied. - Small hiatal hernia. - Congestive gastropathy. Biopsied. - Duodenitis. Biopsied. Recommendations : - Discharge patient to home. - Resume previous diet. - Continue present medications. - Await pathology results. My findings are described in the full procedure note, which is enclosed. If I can be of further assistance, please feel free to contact me at . Sincerely, Alejandro Murillo, 07/13/2023 7:14:05 AM This report has been signed electronically.
--- NOTE | 2023-07-13 07:15 | OP.EGD_ITS ---
Patient Name: Linda Leija Procedure Date: 07/13/2023 6:19 AM Date of : 1955 Age: 68 Procedure: Upper GI endoscopy Indications: Epigastric abdominal pain, Iron deficiency anemia, Functional Dyspepsia Providers: Alejandro Murillo DO Referring MD: Nate Gray Medicines: Monitored Anesthesia Care Patient Profile: This is a 68 year old female. Refer to note in patient chart for documentation of history and physical. Patient has symptoms of chronic epigastric abdominal pain and chronic dyspepsia. Complications: No immediate complications. Procedure: Pre-Anesthesia Assessment: - Prior to the procedure, a History and Physical was performed, and patient medications and allergies were reviewed. The patient is competent. The risks and benefits of the procedure and the sedation options and risks were discussed with the patient. All questions were answered and informed consent was obtained. Patient identification and proposed procedure were verified by the physician in the pre-procedure area. Mental Status Examination: alert and oriented. Airway Examination: normal oropharyngeal airway and neck mobility. Respiratory Examination: clear to auscultation. CV Examination: normal. Prophylactic Antibiotics: The patient does not require prophylactic antibiotics. Prior Anticoagulants: The patient has taken no anticoagulant or antiplatelet agents. ASA Grade Assessment: III - A patient with severe systemic disease. After reviewing the risks and benefits, the patient was deemed in satisfactory condition to undergo the procedure. The anesthesia plan was to use monitored anesthesia care (MAC). Immediately prior to administration of medications, the patient was re-assessed for adequacy to receive sedatives. The heart rate, respiratory rate, oxygen saturations, blood pressure, adequacy of pulmonary ventilation, and response to care were monitored throughout the procedure. The physical status of the patient was re-assessed after the procedure. After obtaining informed consent, the endoscope was passed under direct vision. Throughout the procedure, the patient's blood pressure, pulse, and oxygen saturations were monitored continuously. The colonoscope was introduced through the mouth, and advanced to the second part of duodenum. The upper GI endoscopy was accomplished without difficulty. The patient tolerated the procedure well. Scope In: 6:42:53 AM Scope Out: 6:47:59 AM Total Procedure Duration Time 0 hours 5 minutes 6 seconds Findings: The Z-line was irregular and was found 38 cm from the incisors. Biopsies were taken with a cold forceps for histology. Estimated blood loss was minimal. A small hiatal hernia was present. Patchy mildly congested mucosa was found in the gastric body. Biopsies were taken with a cold forceps for histology. Verification of patient identification for the specimen was done. Biopsies were taken with a cold forceps for Helicobacter pylori testing. Verification of patient identification for the specimen was done. Patchy mild inflammation characterized by erosions and erythema was found in the duodenal bulb. Biopsies were taken with a cold forceps for histology. Verification of patient identification for the specimen was done. Estimated blood loss was minimal. Impression: - Z-line irregular, 38 cm from the incisors. Biopsied. - Small hiatal hernia. - Congestive gastropathy. Biopsied. - Duodenitis. Biopsied. Recommendation: - Discharge patient to home. - Resume previous diet. - Continue present medications. - Await pathology results. Procedure Code(s): --- Professional --- 42617, Esophagogastroduodenoscopy, flexible, transoral; with biopsy, single or multiple CPT copyright 2021 [employer]. All rights reserved. The codes documented in this report are preliminary and upon mud car worker review may be revised to meet current compliance requirements. Alejandro Murillo DO 07/13/2023 7:14:05 AM This report has been signed electronically. Number of Addenda: 0 Note Initiated On: 07/13/2023 6:19 AM
--- NOTE | 2023-07-13 07:18 | OP.COLON_ITS ---
Patient Name: Linda Leija Procedure Date: 07/13/2023 6:48 AM Date of : 1955 Age: 68 Procedure: Colonoscopy Indications: Screening for colorectal malignant neoplasm Providers: DO Nancy Aguayo MD: Nate Gray Medicines: Monitored Anesthesia Care Patient Profile: This is a 68 year old female. Refer to note in patient chart for documentation of history and physical. Patient has symptoms of chronic epigastric abdominal pain and chronic dyspepsia. Last Colonoscopy: several years ago. Complications: No immediate complications. Procedure: Pre-Anesthesia Assessment: - Prior to the procedure, a History and Physical was performed, and patient medications and allergies were reviewed. The patient is competent. The risks and benefits of the procedure and the sedation options and risks were discussed with the patient. All questions were answered and informed consent was obtained. Patient identification and proposed procedure were verified by the physician in the pre-procedure area. Mental Status Examination: alert and oriented. Airway Examination: normal oropharyngeal airway and neck mobility. Respiratory Examination: clear to auscultation. CV Examination: normal. Prophylactic Antibiotics: The patient does not require prophylactic antibiotics. Prior Anticoagulants: The patient has taken no anticoagulant or antiplatelet agents. ASA Grade Assessment: III - A patient with severe systemic disease. After reviewing the risks and benefits, the patient was deemed in satisfactory condition to undergo the procedure. The anesthesia plan was to use monitored anesthesia care (MAC). Immediately prior to administration of medications, the patient was re-assessed for adequacy to receive sedatives. The heart rate, respiratory rate, oxygen saturations, blood pressure, adequacy of pulmonary ventilation, and response to care were monitored throughout the procedure. The physical status of the patient was re-assessed after the procedure. After I obtained informed consent, the scope was passed under direct vision. Throughout the procedure, the patient's blood pressure, pulse, and oxygen saturations were monitored continuously. The colonoscope was introduced through the anus and advanced to the cecum, identified by appendiceal orifice and ileocecal valve. The colonoscopy was performed without difficulty. The patient tolerated the procedure well. The quality of the bowel preparation was fair. The ileocecal valve, appendiceal orifice, and rectum were photographed. Scope In: 6:50:02 AM Scope Withdrawal Time 0 hours 9 minutes 42 seconds Scope Out: 7:06:53 AM Total Procedure Duration Time 0 hours 16 minutes 51 seconds Findings: The perianal and digital rectal examinations were normal. There was evidence of a prior end-to-side colo-colonic anastomosis in the recto-sigmoid colon. This was patent and was characterized by healthy appearing mucosa. The anastomosis was traversed. Stool was found in the rectum, in the recto-sigmoid colon, in the sigmoid colon, in the descending colon, at the splenic flexure, in the transverse colon, at the hepatic flexure, in the ascending colon and in the cecum. A 15 mm polyp was found in the cecum. The polyp was sessile. The polyp was removed with a saline injection-lift technique using a hot snare. Resection and retrieval were complete. Coagulation for destruction of remaining portion of lesion using argon plasma at 0.3 liters/minute and 20 matos was successful. Estimated blood loss was minimal. A few medium-mouthed diverticula were found in the recto-sigmoid colon, sigmoid colon, transverse colon and hepatic flexure. Impression: - Preparation of the colon was fair. - Patent end-to-side colo-colonic anastomosis, characterized by healthy appearing mucosa. - Stool in the rectum, in the recto-sigmoid colon, in the sigmoid colon, in the descending colon, at the splenic flexure, in the transverse colon, at the hepatic flexure, in the ascending colon and in the cecum. - One 15 mm polyp in the cecum, removed using injection-lift and a hot snare. Resected and retrieved. Treated with argon plasma coagulation (APC). Recommendation: - Repeat colonoscopy in 6 months because the bowel preparation was suboptimal. - Continue present medications. Procedure Code(s): --- Professional --- 72222, Colonoscopy, flexible; with removal of tumor(s), polyp(s), or other lesion(s) by snare technique 39367, Colonoscopy, flexible; with directed submucosal injection(s), any substance CPT copyright 2021 [employer]. All rights reserved. The codes documented in this report are preliminary and upon insurance coder review may be revised to meet current compliance requirements. Alejandro Murillo DO 07/13/2023 7:18:34 AM This report has been signed electronically. Number of Addenda: 0 Note Initiated On: 07/13/2023 6:48 AM
--- NOTE | 2023-07-13 07:19 | OP.CCLET_ITS ---
07/13/2023 Nate Gray [address] [place] [address] Re : Colonoscopy procedure for Linda Leija Dear Dr. Gray This procedure was performed on Thursday, July 13, 2023. My impressions and recommendations are as follows: Impressions : - Preparation of the colon was fair. - Patent end-to-side colo-colonic anastomosis, characterized by healthy appearing mucosa. - Stool in the rectum, in the recto-sigmoid colon, in the sigmoid colon, in the descending colon, at the splenic flexure, in the transverse colon, at the hepatic flexure, in the ascending colon and in the cecum. - One 15 mm polyp in the cecum, removed using injection-lift and a hot snare. Resected and retrieved. Treated with argon plasma coagulation (APC). Recommendations : - Repeat colonoscopy in 6 months because the bowel preparation was suboptimal. - Continue present medications. My findings are described in the full procedure note, which is enclosed. If I can be of further assistance, please feel free to contact me at . Sincerely, Alejandro Murillo, 07/13/2023 7:18:34 AM This report has been signed electronically.
--- NOTE | 2023-07-13 10:57 | HP.PCM_ITS ---
HPI - General General Date of Admission: 07/13/23 HPI Narrative BAHMAN MICHELE, is a 68 F who is admitted for RLE atherosclerosis with progressively worsening rest pain that is not well controlled on her home pain management regimen. She presented to the office today after her endoscopy/colonoscopy with complaint of severe RLE rest pain. She reports the pain as constant. She is unable to complete her usual daily activities. She does see pain management for her chronic back pain, and her prescribed pain medications along with injections reasonable help her back pain but do not seem to make a difference for her RLE pain. She has admitted to turning to increased alcohol intake and increased smoking to try to control her pain. She has known LLE PT DVT. She has persistent swelling, occasional discomfort in LLE. The DVT has been stable on serial ultrasounds. She had been on Xarelto for treatment of the DVT but developed progressive anemia with Hgb down to 7.7. We had coordinated an outpatient PRBC infusion and her Hgb improved following this. She had the endoscopy/colonoscopy to investigate for possible source of bleeding. On endoscopy she was noted to have congestive gastropathy and duodenal erosions/erythema. On colonoscopy, had polyp removal though overall incomplete due to suboptimal prep. Last week, she reports she had a chest cold. Pulmonary initiated Levaquin 750mg daily x 7 days, this will be completed on Sunday. She reports she is feeling better in this regard with less SOB and coughing. ON LICENSE OF [facility] Medical History (Updated 07/13/23 @ 09:27 by MARY Balderrama) Alcohol abuse Asthma Back pain due to injury Chronic headaches Chronic pain Closed fracture of fifth metatarsal bone of left foot Clostridium difficile colitis COPD (chronic obstructive pulmonary disease) Diverticulitis Diverticulitis of colon without hemorrhage Duodenal ulcer Dyspnea Emphysema of lung Essential hypertension Full dentures H/O spleen injury High cholesterol History of cardiovascular stress test History of pelvic hematoma History of stress test History of ulceration Hoarseness Hyperlipemia Impaired fasting glucose Incisional hernia without mention of obstruction or gangrene Injury of head and neck Injury, spleen, with capsular tears Leg pain Loss of hearing Low iron On home oxygen therapy Osteoarthritis Peptic ulcer disease Pneumohemothorax, traumatic Post-menopausal Pseudocyst of pancreas Rheumatoid arthritis S/P arteriogram of extremity SBO (small bowel obstruction) Shortness of breath Shortness of breath on exertion Smoker Spleen hematoma Ulcer Wears dentures Wears glasses Home Medications atorvastatin 20 mg tablet 20 mg PO QHS cholesterol 05/28/19 [History Last Taken 10/08/22] carvedilol 25 mg tablet 25 mg PO BID BP 05/28/19 [History Last Taken 07/13/23 02:30] spironolactone 25 mg tablet 25 mg PO DAILY BP 05/28/19 [History Last Taken 10/08/22] alprazolam 0.5 mg tablet 0.5 mg PO TID ANXIETY 02/12/21 [History Last Taken 07/13/23 04:00] psyllium 1 packet PO DAILY PRN constipation 02/12/21 [History Last Taken Unknown] Lactobacillus acidophilus 20 billion cell capsule (Florajen Acidophilus) 10 mg PO DAILY SUPPLEMENT 02/13/22 [History Last Taken 10/08/22] clopidogrel 75 mg tablet 75 mg PO DAILY BLOOD THINNER 07/14/22 [History Last Taken 05/16/23] acetaminophen 500 mg tablet 1,000 mg PO Q6H PRN Pain 07/19/22 [History Last Taken 07/13/23 02:00] pantoprazole 40 mg tablet,delayed release 40 mg PO BID GERD 30 days #60 tabs 10/12/22 [Rx Last Taken 07/13/23 04:00] levalbuterol tartrate 45 mcg/actuation aerosol inhaler 2 inh inhalation Q6H SOB #15 grams 10/31/22 [Rx Last Taken Unknown] gabapentin 300 mg capsule 600 mg PO .qid nerve 04/18/23 [History Last Taken 07/13/23 04:00] tramadol 50 mg tablet 50 mg PO Q6H PAIN 04/18/23 [History Last Taken 05/16/23] fluticasone fur. 200 mcg-umeclid 62.5 mcg-vilant 25 mcg inhalat.powder (Trelegy Ellipta) 1 inh inhalation DAILY ASTHMA #60 ea 06/25/23 [Rx Last Taken 07/13/23 04:00] guaifenesin 1,200 mg tablet, extended release 12 hr (Mucinex) 1,200 mg PO BID MUCOUS 07/02/23 [History Last Taken Unknown] levofloxacin 750 mg tablet 750 mg PO Q24H 7 days #7 tabs 07/09/23 [Rx Last Taken Unknown] Allergy/AdvReac Type Severity Reaction Status Date / Time amlodipine Allergy Unknown Verified 07/13/23 05:42 clonidine Allergy Unknown Verified 07/13/23 05:42 adhesive AdvReac Rash Verified 07/13/23 05:42 codeine AdvReac Nausea Verified 07/13/23 05:42 fentanyl AdvReac Other Verified 07/13/23 05:42 Family History Mother Heart disease Hypertension Diabetes Sister Hypertension Brother Hypertension Sister Hypertension Cervical cancer Brother Pancreatic cancer Surgical History H/O colostomy H/O: History of hernia repair Hx of cervical spine surgery Social History household members: spouse housing: house Smoking Status: Current every day smoker tobacco type: cigarettes Electronic Cigarette Use: not used second hand exposure: Yes alcohol intake: current alcohol intake frequency: a few times a week substance use type: does not use caffeine: Yes what type of physical activity do you participate in: bicycling frequency: 1-2 times per week Vital Signs Vital Signs Vital Signs: 07/13/23 05:48 07/13/23 05:50 07/13/23 07:13 Temperature 97.4 F L 97.4 F L Temperature Source Temporal Temporal Pulse Rate 79 82 Respiratory Rate 18 16 Respiratory Pattern Normal Normal Blood Pressure 146/83 H 132/111 H Blood Pressure Mean 104 118 Blood Pressure Source Monitor Monitor Blood Pressure Position Semi-Fowlers Semi-Fowlers Blood Pressure Location Right Arm Right Arm Baseline BP 146/83 Pulse Ox 97 95 Oxygen Delivery Method Room Air Room Air 07/13/23 07:15 07/13/23 07:20 07/13/23 07:25 Temperature Temperature Source Pulse Rate 80 84 85 Respiratory Rate 16 16 16 Respiratory Pattern Blood Pressure 107/61 120/59 L 122/62 H Blood Pressure Mean 76 79 82 Blood Pressure Source Monitor Monitor Monitor Blood Pressure Position Semi-Fowlers Semi-Fowlers Semi-Fowlers Blood Pressure Location Right Arm Right Arm Right Arm Baseline BP 146/83 146/83 146/83 Pulse Ox 96 94 95 Oxygen Delivery Method Room Air Room Air Room Air 07/13/23 07:26 07/13/23 07:44 07/13/23 07:44 Temperature 97.1 F L Temperature Source Temporal Pulse Rate 82 Respiratory Rate 16 Respiratory Pattern Normal Blood Pressure Blood Pressure Mean Blood Pressure Source Monitor Blood Pressure Position Semi-Fowlers Blood Pressure Location Right Arm Baseline BP 146/83 146/83 Pulse Ox 98 Oxygen Delivery Method Room Air Weight Weight: 165 lb 5.547 oz Body Mass Index (BMI) 33.3 Physical Exam Const alert and oriented x3 General Appearance: cooperative HEENT normocephalic and head/scalp atraumatic Eyes EOMs intact bilaterally Neck General: trachea midline Resp normal respiratory effort Effort and Inspection: able to speak in complete sentences and symmetric chest movement; Negative for respiratory distress Auscultation: rhonchi right upper and right lower and diminished lung sounds Cardio regular rhythm Rate: tachycardic Extremity no calf tenderness General Extremity: edema left Skin Rashes: no rashes Wounds: Negative for wounds noted Neuro CN's II-XII intact bilaterally, no focal motor deficits and no sensory deficits noted Speech: speech normal Psych cooperative and affect normal Appearance: appropriate Assessment & Plan Assessment/Plan (1) Atherosclerosis of right lower extremity with rest pain: PLAN: Plan She is admitted for increased and poorly controlled pain secondary to her RLE atherosclerosis. Will continue her home gabapentin and tylenol. Have held her home tramadol and will initiate PRN hydromorphone and oxycodone instead. Will continue DAPT. Will start low-dose heparin at 500 units/hour, will wait to start until this evening. Did discuss this with Friend he is agreeable with this antiplatelet/anticoagulation plan. Will check CBC today and have ordered for tomorrow morning as well to trend hgb. Will continue her Levofloxacin 750mg daily as prescribed by pulmonary. She does report her respiratory symptoms are much improved. For nicotine dependence, have prescribed nicotine patches. As she has admitted to more frequent alcohol use recently, have initiated [facility] protocol to monitor. Plan is for R femoral endarterectomy on an inpatient basis next week, will coordinate with surgery scheduling. Charges/Coding Visit Charges Inpatient E&M: 00970 Init Hosp L2
[2023-07-13] MEDS: ALPRAZolam 0.5 MG Tablet PO ×2 (12:26→22:16)
[2023-07-13] MEDS: HYDROmorphone Inj 0.2 MG/ML SYRINGE IV ×2 (12:26→21:01)
[2023-07-13] MEDS: levoFLOXacin 750 MG Tablet PO (13:17)
[2023-07-13] MEDS: Gabapentin 300 MG Capsule 600 MG PO ×3 (13:24→22:16)
[2023-07-13] MEDS: oxyCODONE 5 MG Tablet PO ×3 (13:24→22:20)
[2023-07-13 13:30] LABS: Absolute Lymphocyte Count 0.39 X10^3/uL (0.83-4.51); Absolute Neutrophil Count 6.9 X10^3/uL (2.0-7.7); Basophil# 0.03 X10^3/uL; Basophil% 0.4 % (0-1); Hematocrit 32.9 % (37-47); Hemoglobin 10.5 g/dL (12.0-15.0); Lymphocyte # 0.39 X10^3/ul (0.83-4.51); Lymphocyte % 5.3 % (19-41); Mean Corp Hgb Conc 31.9 g/dL (32-36); Mean Corpuscular Hgb 28.3 pg (27.0-32.0); Mean Corpuscular Volume 88.7 fL (81-99); Mean Platelet Vol. 8.9 fl (6.2-12.0); Monocyte# 0.05 X10^3/uL; Monocyte% 0.7 % (0-10); NRBC Flagged by Analyzer 0 % (0-5); Neutrophil # 6.93 X10^3/uL (2.7-7.7); Neutrophil % 93.3 % (47-70); POSITIVE DIFFERENTIAL YES; Platelet Count 362 K/mm3 (150-450); RBC Distribution Width CV 15.4 % (11.6-14.6); RBC Distribution Width SD 49.6 fl (35.1-43.9); Red Blood Count 3.71 M/mm3 (4.2-5.4); White Blood Count 7.4 K/mm3 (4.4-11.0)
[2023-07-13 13:31] LABS: Differential Indicated SCAN CRITERIA MET
[2023-07-13] MEDS: Acetaminophen 500 MG Tablet 1000 MG PO ×2 (15:48→22:20)
[2023-07-13] MEDS: Carvedilol 25 MG Tablet PO (16:35)
--- NOTE | 2023-07-13 17:48 | CASEMGMT ---
RN YONI [employer] [employer] CM to room to meet with patient for initial transition planning/care coordination assessment. MARGO VALLEJO introduced self and role at [facility]. Pt voices understanding and consents to assessment at this time. Pt sitting up in bed in no distress at this time. Pt is A/O at this time and answers all questions appropriately. Care providers, pharmacy, and demographics verified/updated at this time. PCP: Dr Gray Specialists: Dr Lopez-vascular, Dr Valdivia-pulmonology, Dr Murillo-GI, Dr Delarosa-urology Preferred Pharmacy: [facility] [place], [place] Insurance: [employer] [facility] Prescription Benefit: Yes Living Will/HPOA: States does not have LW or HCPOA. LNOK: Daughter, Tasia. , Eloy. Living Arrangements: Lives w/ in 2-story home w/one step to enter. FFSU. Independent w/ADL's and manages her own medications and appts. manages home tasks. Transportation: Pt states drives self and states no transportation concerns at this time. also drives. DME: States has the following DME: grab bars, pulse ox, BP machine, nebulizer, O2 @ 2 l/m that she states she uses PRN and @ HS, and lift chair. Pt states is planning on getting a shower chair. She was made aware this is not covered by insurance and she states that is okay. Pt states no need for further DME at this time. HHC/SNF: No hx of either. No needs identified. Pt denies need for HHC. Pt wishes to return home and states has no concerns with going home at time of discharge. CM to follow for any further discharge planning/needs. Pt voices no further concerns/needs at this time. Advised pt to ask for CM if any further questions/concerns/needs arise. Voices understanding. PLAN: Home Garry SPANN RN, CM
[2023-07-13] MEDS: Ipratropium/Albuterol Sulfate 3 ML AMPUL.NEB INHALATION (19:00)
[2023-07-13] MEDS: Budesonide Respules 0.5 MG/2 ML AMPUL.NEB. INHALATION (19:00)
[2023-07-13] MEDS: HEPARIN/D5w 25,000 UNITS 25,000 UNITS/250 ML IV.SOLN. 5 UNITS CONT INF (20:35)
[2023-07-13] MEDS: Atorvastatin Calcium 20 MG Tablet PO (22:17)
[2023-07-13] MEDS: guaiFENesin 1,200 MG Tablet 1200 MG PO (22:17)
[2023-07-13] MEDS: Pantoprazole Sodium 40 MG Tablet PO (22:17)
[2023-07-14] VITALS (7 sets, daily range): BP systolic 130–164; BP diastolic 59–88; PULSE 78–98; RESP 16–20; TEMP 36.6–36.7; O2SAT 94–96
[2023-07-14] MEDS: HYDROmorphone Inj 0.2 MG/ML SYRINGE IV ×5 (00:40→22:04)
[2023-07-14] MEDS: 0.9% Saline Lock 10 ML Syringe IV ×4 (00:40→18:36)
[2023-07-14] MEDS: Acetaminophen 500 MG Tablet 1000 MG PO ×2 (04:56→19:56)
[2023-07-14] MEDS: ALPRAZolam 0.5 MG Tablet PO ×3 (04:58→21:58)
[2023-07-14] MEDS: oxyCODONE 5 MG Tablet PO ×3 (04:58→19:56)
[2023-07-14] MEDS: Budesonide Respules 0.5 MG/2 ML AMPUL.NEB. INHALATION ×2 (06:50→19:02)
[2023-07-14] MEDS: Ipratropium/Albuterol Sulfate 3 ML AMPUL.NEB INHALATION ×3 (06:50→19:02)
[2023-07-14 07:17] LABS: Absolute Lymphocyte Count 1.09 X10^3/uL (0.83-4.51); Absolute Neutrophil Count 7.9 X10^3/uL (2.0-7.7); Basophil# 0.02 X10^3/uL; Basophil% 0.2 % (0-1); Hemoglobin 8.6 g/dL (12.0-15.0); Lymphocyte # 1.09 X10^3/ul (0.83-4.51); Mean Corp Hgb Conc 30.7 g/dL (32-36); Mean Corpuscular Volume 88.1 fL (81-99); Mean Platelet Vol. 9.2 fl (6.2-12.0); Monocyte% 8.1 % (0-10); NRBC Flagged by Analyzer 0 % (0-5); Neutrophil # 7.94 X10^3/uL (2.7-7.7); Neutrophil % 80.2 % (47-70); Platelet Count 335 K/mm3 (150-450); RBC Distribution Width CV 15.3 % (11.6-14.6); RBC Distribution Width SD 49.1 fl (35.1-43.9); Red Blood Count 3.18 M/mm3 (4.2-5.4); White Blood Count 9.9 K/mm3 (4.4-11.0)
[2023-07-14 07:50] LABS: Anion Gap 6 (5-15); BUN 20 mg/dL (7-18); Calcium,Total 8.5 mg/dL (8.5-10.1); Chloride 102 mmol/L (98-107); EST Glomerular Filtration Rate 59 mL/min (>60); Est Glom Filt Rate - Afr Amer 71 mL/min (>60); Estimated Creatinine Clearance 63.75 ml/min; Glucose 124 mg/dL (74-106); Potassium 4.4 mmol/L (3.5-5.1); Sodium Level 132 mmol/L (136-145)
[2023-07-14] MEDS: guaiFENesin 1,200 MG Tablet 1200 MG PO ×2 (09:02→21:58)
[2023-07-14] MEDS: levoFLOXacin 750 MG Tablet PO (09:02)
[2023-07-14] MEDS: Pantoprazole Sodium 40 MG Tablet PO ×2 (09:02→22:01)
[2023-07-14] MEDS: Spironolactone 25 MG Tablet PO (09:02)
[2023-07-14] MEDS: Gabapentin 300 MG Capsule 600 MG PO ×4 (09:02→21:58)
[2023-07-14] MEDS: Clopidogrel Bisulfate 75 MG Tablet PO (09:02)
[2023-07-14] MEDS: Carvedilol 25 MG Tablet PO ×2 (09:02→17:33)
--- NOTE | 2023-07-14 13:58 | PN.SURG_ITS ---
Subjective Subjective Foot/leg pain modestly controlled with IV meds. No change with heparin. No dark/bloody stools. Objective Data Objective Data A&O x3, NAD RRR right DP/PT monophasic left DP/PT biphasic Vital Signs: Vital Signs Temp Pulse Resp BP Pulse Ox O2 Del Method 97.8 F 98 18 136/72 H 96 Room Air 07/14/23 08:57 07/14/23 08:57 07/14/23 08:57 07/14/23 08:57 07/14/23 08:57 07/14/23 10:00 Oxygen Delivery Method Room Air Weight: 165 lb 5.547 oz Body Mass Index (BMI) 33.3 Intake & Output: Intake and Output for Last 24 Hours 07/12/23 07/13/23 07/14/23 23:59 23:59 23:59 Intake Total 113.75 / 113.75 85.42 / 85.42 Balance 113.75 / 113.75 85.42 / 85.42 Lab / Micro Data 07/14/23 06:46 07/14/23 06:46 Labs: Laboratory Results - last 24 hr 07/10/23 08:59: PT 14.1, INR 1.1, APTT 30.5 07/10/23 09:00: WBC 9.5, RBC 3.62 L, Hgb 9.7 L, Hct 31.4 L, MCV 86.7, MCH 26.8 L , MCHC 30.9 L, RDW Std Deviation 47.8 H, RDW Coeff of Renea 15.0 H, Plt Count 303, MPV 9.1, Sodium 131 L, Potassium 4.8, Chloride 100, Carbon Dioxide 25.0, Anion Gap 6, BUN 12, Creatinine 0.90, Est GFR (MDRD) Af Amer 80, Est GFR (MDRD) Non-Af 66, BUN/Creatinine Ratio 13.4, Glucose 99, Calcium 9.1, Blood Type Cancelled, Antibody Screen Cancelled 07/14/23 06:46: WBC 9.9, RBC 3.18 L, Hgb 8.6 L, Hct 28.0 L, MCV 88.1, MCH 27.0, MCHC 30.7 L, RDW Std Deviation 49.1 H, RDW Coeff of Renea 15.3 H, Plt Count 335, MPV 9.2, Immature Gran % (Auto) 0.500, Neut % (Auto) 80.2 H, Lymph % (Auto) 11.0 L, [place] % (Auto) 8.1, Eos % (Auto) 0.0, Baso % (Auto) 0.2, Absolute Neuts (auto) 7.9 H, Absolute Lymphs (auto) 1.09, Nucleated RBC % 0, Sodium 132 L, Potassium 4.4, Chloride 102, Carbon Dioxide 24.0, Anion Gap 6, BUN 20 H, Creatinine 1.00, Estim Creat Clear Calc 63.75, Est GFR (MDRD) Af Amer 71, Est GFR (MDRD) Non-Af 59 L, BUN/Creatinine Ratio 20.0, Glucose 124 H, Calcium 8.5 Assessment & Plan Assessment/Plan (1) Atherosclerosis of right lower extremity with rest pain: QUALIFIERS: Peripheral atherosclerosis artery type: [place] artery Qualified Code(s): I70.221 - Atherosclerosis of [place] arteries of extremities with rest pain, right leg PLAN: -hgb to 8.6 from 10.5 -will stop low dose heparin for now -cont antiplatelet -trend hgb -plan femoral endart, iliac stent Sunday Charges/Coding Visit Charges Inpatient E&M: 98914 Subs Hosp L2
[2023-07-14] MEDS: Atorvastatin Calcium 20 MG Tablet PO (21:58)
[2023-07-14] MEDS: MELATONIN 3 MG TABLET PO (21:58)
[2023-07-15] VITALS (9 sets, daily range): BP systolic 109–155; BP diastolic 46–88; PULSE 78–94; RESP 14–20; TEMP 36.3–36.6; O2SAT 94–100
[2023-07-15] MEDS: oxyCODONE 5 MG Tablet PO ×5 (01:39→22:23)
[2023-07-15] MEDS: Acetaminophen 500 MG Tablet 1000 MG PO (05:28)
[2023-07-15] MEDS: ALPRAZolam 0.5 MG Tablet PO ×3 (05:28→22:20)
[2023-07-15] MEDS: Psyllium 1 PACKET PO (05:38)
[2023-07-15 07:41] LABS: Hematocrit 28.5 % (37-47); Hemoglobin 8.9 g/dL (12.0-15.0); Mean Corp Hgb Conc 31.2 g/dL (32-36); Mean Corpuscular Hgb 26.9 pg (27.0-32.0); Mean Corpuscular Volume 86.1 fL (81-99); Mean Platelet Vol. 9.1 fl (6.2-12.0); Platelet Count 353 K/mm3 (150-450); RBC Distribution Width CV 15.6 % (11.6-14.6); RBC Distribution Width SD 48.8 fl (35.1-43.9); Red Blood Count 3.31 M/mm3 (4.2-5.4); White Blood Count 11.9 K/mm3 (4.4-11.0)
[2023-07-15] MEDS: levoFLOXacin 750 MG Tablet PO (08:26)
[2023-07-15] MEDS: Clopidogrel Bisulfate 75 MG Tablet PO (08:26)
[2023-07-15] MEDS: Spironolactone 25 MG Tablet PO (08:26)
[2023-07-15] MEDS: Pantoprazole Sodium 40 MG Tablet PO ×2 (08:27→22:20)
[2023-07-15] MEDS: Carvedilol 25 MG Tablet PO ×2 (08:27→17:19)
[2023-07-15] MEDS: Aspirin E.C. 81 MG Tablet PO (08:27)
[2023-07-15] MEDS: Gabapentin 300 MG Capsule 600 MG PO ×4 (08:27→22:20)
[2023-07-15] MEDS: guaiFENesin 1,200 MG Tablet 1200 MG PO ×2 (08:27→22:20)
[2023-07-15] MEDS: 0.9% Saline Lock 10 ML Syringe IV ×3 (08:30→20:30)
[2023-07-15] MEDS: Lisinopril 40 MG Tablet PO (10:12)
[2023-07-15] MEDS: HYDROmorphone Inj 0.2 MG/ML SYRINGE IV ×3 (11:10→20:28)
--- NOTE | 2023-07-15 11:48 | PCM.PN.SRG ---
Subjective Subjective No new issues. No BM since admission. Foot/leg pain unchanged. Objective Data Objective Data A&O x 3, NAD RRR resp non labored soft, NT,ND Vital Signs: Vital Signs Temp Pulse Resp BP Pulse Ox O2 Del Method 98 F 85 14 118/85 H 99 Room Air 07/15/23 09:00 07/15/23 09:00 07/15/23 09:00 07/15/23 09:00 07/15/23 09:00 07/15/23 09:00 Oxygen Delivery Method Room Air Weight: 165 lb 5.547 oz Body Mass Index (BMI) 33.3 Intake & Output: Intake and Output for Last 24 Hours 07/13/23 07/14/23 07/15/23 23:59 23:59 23:59 Intake Total 113.75 / 113.75 565.42 / 565.42 500 / 500 Balance 113.75 / 113.75 565.42 / 565.42 500 / 500 Lab / Micro Data 07/15/23 07:34 07/14/23 06:46 Labs: Laboratory Results - last 24 hr 07/15/23 07:34: WBC 11.9 H, RBC 3.31 L, Hgb 8.9 L, Hct 28.5 L, MCV 86.1, MCH 26.9 L, MCHC 31.2 L, RDW Std Deviation 48.8 H, RDW Coeff of Renea 15.6 H, Plt Count 353, MPV 9.1 Assessment & Plan Assessment/Plan (1) Atherosclerosis of right lower extremity with rest pain: QUALIFIERS: Peripheral atherosclerosis artery type: [place] artery Qualified Code(s): I70.221 - Atherosclerosis of [place] arteries of extremities with rest pain, right leg PLAN: -hgb up from yesterday some, but still down since admission -will hold heparin for now; if cont to improve then will resume low fixed rate tomorrow vs dvt prophylaxis -add colacec BID Charges/Coding Visit Charges Inpatient E&M: 89608 Subs Hosp L2
[2023-07-15] MEDS: Ipratropium/Albuterol Sulfate 3 ML AMPUL.NEB INHALATION ×2 (12:54→19:01)
[2023-07-15] MEDS: Budesonide Respules 0.5 MG/2 ML AMPUL.NEB. INHALATION (19:02)
[2023-07-15] MEDS: Atorvastatin Calcium 20 MG Tablet PO (22:20)
[2023-07-15] MEDS: MELATONIN 3 MG TABLET PO (22:23)
[2023-07-16] VITALS (9 sets, daily range): BP systolic 96–124; BP diastolic 60–86; PULSE 86–106; RESP 14–18; TEMP 36.5–36.7; O2SAT 92–99
[2023-07-16] MEDS: HYDROmorphone Inj 0.2 MG/ML SYRINGE IV ×6 (01:10→22:48)
[2023-07-16] MEDS: 0.9% Saline Lock 10 ML Syringe IV (01:11)
[2023-07-16] MEDS: oxyCODONE 5 MG Tablet PO ×4 (04:44→21:05)
[2023-07-16 05:33] LABS: Absolute Lymphocyte Count 2.94 X10^3/uL (0.83-4.51); Basophil# 0.06 X10^3/uL; Basophil% 0.6 % (0-1); Eosinophil# 0.12 X10^3/uL; Eosinophils% 1.2 % (0-5); Hematocrit 27.9 % (37-47); Hemoglobin 8.9 g/dL (12.0-15.0); Lymphocyte # 2.94 X10^3/ul (0.83-4.51); Lymphocyte % 28.4 % (19-41); Mean Corp Hgb Conc 31.9 g/dL (32-36); Mean Corpuscular Hgb 27.5 pg (27.0-32.0); Mean Corpuscular Volume 86.1 fL (81-99); Mean Platelet Vol. 8.9 fl (6.2-12.0); Monocyte# 1.18 X10^3/uL; Monocyte% 11.4 % (0-10); NRBC Flagged by Analyzer 0 % (0-5); Neutrophil # 6.02 X10^3/uL (2.7-7.7); Neutrophil % 58.1 % (47-70); Platelet Count 367 K/mm3 (150-450); RBC Distribution Width CV 15.7 % (11.6-14.6); RBC Distribution Width SD 49.1 fl (35.1-43.9); Red Blood Count 3.24 M/mm3 (4.2-5.4); White Blood Count 10.4 K/mm3 (4.4-11.0)
[2023-07-16] MEDS: ALPRAZolam 0.5 MG Tablet PO ×3 (06:31→21:06)
[2023-07-16] MEDS: Ipratropium/Albuterol Sulfate 3 ML AMPUL.NEB INHALATION ×3 (07:01→20:18)
[2023-07-16] MEDS: Budesonide Respules 0.5 MG/2 ML AMPUL.NEB. INHALATION ×2 (07:01→20:18)
[2023-07-16] MEDS: Gabapentin 300 MG Capsule 600 MG PO ×4 (08:15→21:05)
[2023-07-16] MEDS: Carvedilol 25 MG Tablet PO ×2 (08:16→17:30)
[2023-07-16] MEDS: Clopidogrel Bisulfate 75 MG Tablet PO (08:16)
[2023-07-16] MEDS: Spironolactone 25 MG Tablet PO (08:16)
[2023-07-16] MEDS: guaiFENesin 1,200 MG Tablet 1200 MG PO ×2 (08:16→21:07)
[2023-07-16] MEDS: Pantoprazole Sodium 40 MG Tablet PO ×2 (08:17→21:06)
[2023-07-16] MEDS: Aspirin E.C. 81 MG Tablet PO (08:22)
[2023-07-16] MEDS: Lisinopril 40 MG Tablet PO (10:10)
--- NOTE | 2023-07-16 14:57 | CASEMGMT ---
Patient does not have a Healthcare Power of Professor Of Environmental Science or Healthcare Living Will. Patient declined wanting any information on documents. Luda LOVELL
[2023-07-16] MEDS: HEPARIN/D5w 25,000 UNITS 25,000 UNITS/250 ML IV.SOLN. 5 UNITS CONT INF (17:31)
[2023-07-16] MEDS: Atorvastatin Calcium 20 MG Tablet PO (21:07)
[2023-07-17] VITALS (10 sets, daily range): BP systolic 117–155; BP diastolic 63–75; PULSE 71–100; RESP 16–20; TEMP 36.3–36.6; O2SAT 92–97
[2023-07-17] MEDS: HYDROmorphone Inj 0.2 MG/ML SYRINGE IV ×6 (02:12→22:47)
[2023-07-17] MEDS: ALPRAZolam 0.5 MG Tablet PO ×3 (04:53→22:40)
[2023-07-17 06:42] LABS: Absolute Lymphocyte Count 3.14 X10^3/uL (0.83-4.51); Absolute Neutrophil Count 4.5 X10^3/uL (2.0-7.7); Basophil# 0.07 X10^3/uL; Basophil% 0.8 % (0-1); Eosinophil# 0.17 X10^3/uL; Eosinophils% 1.9 % (0-5); Hematocrit 27.3 % (37-47); Hemoglobin 8.6 g/dL (12.0-15.0); Lymphocyte # 3.14 X10^3/ul (0.83-4.51); Lymphocyte % 35.5 % (19-41); Mean Corp Hgb Conc 31.5 g/dL (32-36); Mean Corpuscular Hgb 27.2 pg (27.0-32.0); Mean Corpuscular Volume 86.4 fL (81-99); Mean Platelet Vol. 9.4 fl (6.2-12.0); Monocyte# 0.93 X10^3/uL; Monocyte% 10.5 % (0-10); NRBC Flagged by Analyzer 0 % (0-5); Neutrophil # 4.48 X10^3/uL (2.7-7.7); Neutrophil % 50.7 % (47-70); Platelet Count 403 K/mm3 (150-450); RBC Distribution Width CV 15.9 % (11.6-14.6); RBC Distribution Width SD 49.5 fl (35.1-43.9); Red Blood Count 3.16 M/mm3 (4.2-5.4); White Blood Count 8.8 K/mm3 (4.4-11.0)
[2023-07-17] MEDS: Ipratropium/Albuterol Sulfate 3 ML AMPUL.NEB INHALATION ×3 (06:52→19:20)
[2023-07-17] MEDS: Budesonide Respules 0.5 MG/2 ML AMPUL.NEB. INHALATION ×2 (06:52→19:20)
[2023-07-17 07:05] LABS: Partial Thromboplast Time 31.4 Seconds (24.1-36.2)
[2023-07-17] MEDS: oxyCODONE 5 MG Tablet PO ×3 (07:54→22:40)
[2023-07-17] MEDS: Gabapentin 300 MG Capsule 600 MG PO ×4 (09:27→22:40)
[2023-07-17] MEDS: Aspirin E.C. 81 MG Tablet PO (09:28)
[2023-07-17] MEDS: Clopidogrel Bisulfate 75 MG Tablet PO (09:28)
[2023-07-17] MEDS: Lisinopril 40 MG Tablet PO (09:28)
[2023-07-17] MEDS: guaiFENesin 1,200 MG Tablet 1200 MG PO ×2 (09:28→22:40)
[2023-07-17] MEDS: Spironolactone 25 MG Tablet PO (09:28)
[2023-07-17] MEDS: Carvedilol 25 MG Tablet PO ×2 (09:28→17:23)
[2023-07-17] MEDS: Pantoprazole Sodium 40 MG Tablet PO ×2 (09:28→22:40)
[2023-07-17] MEDS: 0.9% Saline Lock 10 ML Syringe IV ×2 (09:30→12:45)
[2023-07-17] MEDS: Docusate Sodium 100 MG Capsule PO ×2 (09:30→22:40)
[2023-07-17] MEDS: Albuterol 2.5 MG/3 ML VIAL.NEB. INHALATION (11:20)
--- NOTE | 2023-07-17 15:08 | PCM.PN.SRG ---
Subjective Subjective Her R foot/leg pain remains unchanged, she reports not been taking PRN tylenol though. Otherwise, no complaints. She reports her SOB is at baseline, no new or worsening cough. She denies any bloody bowel movements, epistaxis, hematuria. Nursing reports she has been intermittently very anxious despite receiving her alprazolam as scheduled. Patient does admit to feeling anxious about upcoming surgery and due to pain. Objective Data Objective Data A&O x 3, NAD RRR respirations non labored right DP/PT monophasic left DP/PT biphasic Vital Signs: Vital Signs Temp Pulse Resp BP Pulse Ox O2 Del Method 97.8 F 90 19 H 155/75 H 97 Room Air 07/17/23 09:24 07/17/23 11:20 07/17/23 11:20 07/17/23 09:24 07/17/23 09:24 07/17/23 09:24 Oxygen Delivery Method Room Air Weight: 165 lb 5.547 oz Body Mass Index (BMI) 33.3 Intake & Output: Intake and Output for Last 24 Hours 07/15/23 07/16/23 07/17/23 23:59 23:59 23:59 Intake Total 500 / 500 740 / 740 450 / 450 Balance 500 / 500 740 / 740 450 / 450 Lab / Micro Data 07/17/23 05:48 07/14/23 06:46 Labs: Laboratory Results - last 24 hr 07/17/23 05:48: WBC 8.8, RBC 3.16 L, Hgb 8.6 L, Hct 27.3 L, MCV 86.4, MCH 27.2, MCHC 31.5 L, RDW Std Deviation 49.5 H, RDW Coeff of Renea 15.9 H, Plt Count 403, MPV 9.4, Immature Gran % (Auto) 0.600, Neut % (Auto) 50.7, Lymph % (Auto) 35.5, [place] % (Auto) 10.5 H, Eos % (Auto) 1.9, Baso % (Auto) 0.8, Absolute Neuts (auto) 4.5, Absolute Lymphs (auto) 3.14, Nucleated RBC % 0, APTT 31.4 Assessment & Plan Assessment/Plan (1) Atherosclerosis of right lower extremity with rest pain: QUALIFIERS: Peripheral atherosclerosis artery type: [place] artery Qualified Code(s): I70.221 - Atherosclerosis of [place] arteries of extremities with rest pain, right leg PLAN: Hgb overall stable from yesterday. Heparin was restarted this morning at low fixed rate. No signs of bleeding. Will recheck Hgb tomorrow morning. Did order T+S and have 2 units on hold for surgery tomorrow. Will continue with pain medications as currently prescribed. Did encourage use of the PRN tylenol. Regarding increased pre-operative anxiety, did add hydroxyzine 25mg to be taken as needed if excess anxiety despite home regimen. NPO after midnight for surgery tomorrow morning. Continue ASA/Plavix.
[2023-07-17] MEDS: Acetaminophen 500 MG Tablet 1000 MG PO (15:39)
[2023-07-17] MEDS: hydrOXYzine PAM 25 MG Capsule PO (22:40)
[2023-07-17] MEDS: Ondansetron 4 MG/2 ML Vial IV (22:40)
[2023-07-17] MEDS: Atorvastatin Calcium 20 MG Tablet PO (22:40)
[2023-07-18] VITALS (19 sets, daily range): BP systolic 96–159; BP diastolic 61–96; PULSE 70–109; RESP 14–18; TEMP 36.1–36.6; O2SAT 91–98
--- NOTE | 2023-07-18 | PLAQ_PTH ---
PATIENT: BAHMAN MICHELE LOC: [facility] U#:[id number] AGE/SX: 68/F ROOM: ICU02 RE07/13/[address]: Dr. Alec Lopez MD : 1955 BED: 1 DIS: 07/19/2023 SPEC #: [id number] RECD: 07/18/23 12:05 STATUS: ARLENE RESierra #: [id number] JUSTA: 07/18/23 00:[address]: Alec Lopez DEPT: SURGICAL PATHOLOGY RECD BY: Cassia Garay ENTERED: 07/18/23 13:19 SP TYPE: PLAQUE OTHR DR: Dr. Nate Gray MD Tissues: PLAQUE Procedures: Decalcification bone/plaque Surgery Specimen Level III HEADER OPERATION: Right femoral endarterectomy, right iliac stent PRE-OP DIAGNOSIS: Atherosclerosis of right lower extremity TISSUE SUBMITTED: Right femoral plaque MICROSCOPIC DIAGNOSIS Right femoral plaque, endarterectomy: Atherosclerotic tissue with focal calcification (plaque). SJ:jj 07/23/2023 GROSS DESCRIPTION Received in fixative is one container labeled with the patient's name and designated right femoral plaque. The specimen consists of multiple irregular fragments of indurated and gritty plaque-like material that in aggregate measure 2.5 x 2.0 x 0.3 cm. The specimen is totally submitted in one cassette after decalcification. / AM:jj 07/18/2023 TC:5 CPT: 29029, 66136
[2023-07-18] MEDS: HYDROmorphone Inj 0.2 MG/ML SYRINGE IV ×2 (04:13→15:26)
[2023-07-18] MEDS: ALPRAZolam 0.5 MG Tablet PO ×3 (04:14→19:55)
[2023-07-18] MEDS: Lactated Ringers 1,000 ML 15 ML IV (06:20)
[2023-07-18 06:35] LABS: Absolute Lymphocyte Count 2.58 X10^3/uL (0.83-4.51); Absolute Neutrophil Count 5.2 X10^3/uL (2.0-7.7); Basophil# 0.05 X10^3/uL; Basophil% 0.6 % (0-1); Eosinophil# 0.21 X10^3/uL; Eosinophils% 2.3 % (0-5); Hematocrit 26.3 % (37-47); Hemoglobin 8.4 g/dL (12.0-15.0); Lymphocyte # 2.58 X10^3/ul (0.83-4.51); Lymphocyte % 28.7 % (19-41); Mean Corp Hgb Conc 31.9 g/dL (32-36); Mean Corpuscular Hgb 27.5 pg (27.0-32.0); Mean Corpuscular Volume 85.9 fL (81-99); Mean Platelet Vol. 9.3 fl (6.2-12.0); Monocyte# 0.98 X10^3/uL; Monocyte% 10.9 % (0-10); NRBC Flagged by Analyzer 0 % (0-5); Neutrophil # 5.15 X10^3/uL (2.7-7.7); Neutrophil % 57.2 % (47-70); Platelet Count 400 K/mm3 (150-450); RBC Distribution Width CV 15.8 % (11.6-14.6); RBC Distribution Width SD 49.2 fl (35.1-43.9); Red Blood Count 3.06 M/mm3 (4.2-5.4)
[2023-07-18] MEDS: Budesonide Respules 0.5 MG/2 ML AMPUL.NEB. INHALATION ×2 (06:45→19:38)
[2023-07-18] MEDS: Ipratropium/Albuterol Sulfate 3 ML AMPUL.NEB INHALATION ×3 (06:45→19:38)
[2023-07-18 07:12] LABS: Anion Gap 4 (5-15); BUN 19 mg/dL (7-18); BUN/Creat Ratio 24.4 RATIO (10-20); Calcium,Total 8.9 mg/dL (8.5-10.1); Chloride 106 mmol/L (98-107); Creatinine, Serum 0.78 mg/dL (0.55-1.02); EST Glomerular Filtration Rate 78 mL/min (>60); Est Glom Filt Rate - Afr Amer 94 mL/min (>60); Estimated Creatinine Clearance 63.75 ml/min; Glucose 89 mg/dL (74-106); Potassium 4.4 mmol/L (3.5-5.1); Sodium Level 137 mmol/L (136-145)
[2023-07-18] MEDS: Cefazolin 2 GM in 0.9% Normal Saline (100mL Bag) 100 ML IV (07:58)
[2023-07-18] MEDS: Heparin 10,000 UNITS/10 ML Vial 10000 UNITS (08:19)
[2023-07-18] MEDS: Heparin Injection (Vial) 5,000 UNIT/ML VIAL 5000 UNIT (08:19)
--- NOTE | 2023-07-18 08:35 | RAD_ITS ---
PROCEDURE: Intraoperative imaging for right femoral endarterectomy and stent placement. DATE OF EXAMINATION: July 18, 2023. INDICATION: Female, 68 years old. Right lower extremity claudication. FLUOROSCOPY TIME (if supplied): (6 minutes and 20 seconds.) minutes/seconds. 483.55 mg. RAD/Fluoroscopy 1 Hr or Less IMPRESSION: Intraoperative imaging provided for right femoral endarterectomy and stent placement. Electronically Signed: Deondre Garcia MD at 9:05 EDT ,
[2023-07-18] MEDS: Bupivacaine Mpf 0.5% 30 ML VIAL (11:09)
--- NOTE | 2023-07-18 11:16 | PCM.OPRPT ---
Report of Operation Date of Procedure: 07/18/23 Pre-Operative Diagnosis: atherosclerosis with rest pain, right lower extremity Post-Operative Diagnosis: same Surgery/Procedure Performed:: right femoral endarterectomy, modifier 22 right common iliac stent/angioplasty right sartorius flap Surgeon: Alec Lopez Type of Anesthesia: General Estimated Blood Loss (mL): 25 Description of Procedure: HPI: Patient is a 68-year-old female with multilevel severe atherosclerosis now with rest pain in the right lower extremity. Imaging has revealed a stenosis of the right common iliac artery as well as occlusion of the distal common femoral with profound reconstitution and SFA occlusion. She is taken now for femoral endarterectomy and iliac stent. Given her body habitus a sartorius flap be performed to decrease the deep space infection risk. Given the patient's body habitus as well as the extensive endarterectomy requiring approximately 1 hour further operative time a modifier 22 was applied. Description of procedure: Upon obtaining form consent and verification correct patient procedure site patient was taken to the operating where she was placed under general anesthesia. She was then positioned prepped and draped in usual sterile fashion a time was performed. Oblique incision was made over the left femoral vessels above electrocautery used to dissect down through the subcutaneous tissue. Self-retaining retractors put in position and further dissection carried down the femoral sheath. The femoral sheath was incised vertically and self-retaining retractors moved deeper in the wound. Sharp dissection used to dissect free the common femoral artery proximally up to under the inguinal ligament to just distal to a previous iliac stent. The vessel dislocation was soft and clamped well so a right angle was used to place a vessel loop. Then carried our dissection distally and discovered that some previous percutaneous access and a Pro-glide have been deployed in the proximal SFA which appeared of subsequently caused occlusion. Chose to dissect distal to this closure device site down to the next large collateral vessel in the hopes that we may be able to open the proximal portion of the SFA and provide some outflow through this collateral. Writing was placed vessel distal on the SFA and this large collateral branch we then turned our attention to the profunda. Sharp dissection was dissected free the profunda which was soft with no significant atherosclerosis. A right angle to place a vessel loop and the patient was then bolused with heparin. Repeat heparin dosing was performed based on ACT results. A micropuncture needle wire then used to access the common femoral artery in retrograde fashion and then exchanged out for micropuncture sheath. Through this hand-injection iliofemoral angiograms performed which confirmed position within the true lumen with no extravasation or dissection. Through the micropuncture sheath a Glidewire was advanced and the micropuncture sheath exchanged out for a 7 [place] Of [place] sheath was advanced into the mid common iliac artery. Through this a KMP catheter was advanced and the Glidewire exchanged for a [employer] wire. Oblique view subtraction angiography of the right iliac system was performed to define the aortic bifurcation as well as the origin of the internal iliac artery which was patent. A 7 x 59 Gwynn VBX balloon expandable covered stent was then advanced in the position and inflated to nominal positioned at the aortic bifurcation. The balloon was then deflated and repeat angiography and satisfactory placement with no extravasation or dissection. There is preserved internal iliac artery however the proximal edge of the stent was slightly higher than the bifurcation. The plan was to post dilate with a larger balloon to foreshortening the stent and bring the leading edge down to the bifurcation so an 8 x 4 angioplasty was advanced in position and inflated to nominal and then deflated withdrawn. Repeat angiography confirmed better stent expansion as well as retraction down to the leading edge to match with the aortic bifurcation. There was continued patency of the internal iliac artery. Next the wire and sheath were withdrawn and the vessels occluded with a atraumatically approximately Vesseloops distally. The common femoral artery puncture site was then extended with Loera scissors proximally up to the previous external iliac stent and distally down onto the SFA to the large collateral branch. We then performed an endarterectomy with satisfactory endpoint distally onto the SFA and no remnant ostial plaque in the profunda. The profunda endpoint was then tacked with 7-0 Prolene interrupted sutures and the lumen flushed with heparinized saline. A bovine pericardial patch was then secured in position using a 6-0 Prolene in a running fashion. Prior to coming suture line vessels were backbled and after completing the suture line clamps removed and satisfactory stasis was noted. There is a brisk palpable pulse in the common femoral artery much improved from prior to the intervention. The distal iliac stent was palpated and ensured to be fully expanded after the clamp was removed. The patient was then reversed with protamine and attention turned to sartorius flap. Bovie was used to dissect out over the muscle and its fascia inferior to the ASIS. The fascia was then incised and extended up to the ASIS and the sartorius muscle mobilized along its lateral edge and detached from its insertion and the ASIS. The muscle was then transposed over to cover the femoral vessels and the patch. The wound was then inspected for hemostasis and Floseal topical hemostatic applied. The sartorius was then anchored in position with 2-0 Vicryl followed by 3-0 Vicryl for Monocryl and Dermabond for the skin. At occlusion case patient awakened anesthesia taken recovery room with dissipated to the intensive care unit. Grafts/Implants Used: Gwynn VBX [id number]
[2023-07-18] MEDS: Lisinopril 40 MG Tablet PO (15:08)
[2023-07-18] MEDS: Gabapentin 300 MG Capsule 600 MG PO ×3 (15:08→19:55)
[2023-07-18] MEDS: Acetaminophen 500 MG Tablet 1000 MG PO (16:49)
[2023-07-18] MEDS: hydrOXYzine PAM 25 MG Capsule PO (16:50)
[2023-07-18] MEDS: Carvedilol 25 MG Tablet PO (18:02)
[2023-07-18] MEDS: guaiFENesin 1,200 MG Tablet 1200 MG PO (19:55)
[2023-07-18] MEDS: oxyCODONE 5 MG Tablet PO (19:55)
[2023-07-18] MEDS: MELATONIN 3 MG TABLET PO (19:55)
[2023-07-18] MEDS: Atorvastatin Calcium 20 MG Tablet PO (19:56)
[2023-07-18] MEDS: Pantoprazole Sodium 40 MG Tablet PO (19:56)
[2023-07-18] MEDS: Docusate Sodium 100 MG Capsule PO (19:56)
[2023-07-18] MEDS: 0.45% Normal Saline 1,000 ML 75 ML IV (20:04)
[2023-07-19] VITALS (20 sets, daily range): BP systolic 86–131; BP diastolic 54–105; PULSE 76–106; RESP 14–21; TEMP 36.6–36.8; O2SAT 91–100; BMI 34.4
[2023-07-19] MEDS: 0.9% Saline Lock 10 ML Syringe IV ×2 (01:31→09:47)
[2023-07-19] MEDS: HYDROmorphone Inj 0.2 MG/ML SYRINGE IV ×2 (01:31→08:15)
[2023-07-19 04:33] LABS: Absolute Lymphocyte Count 1.42 X10^3/uL (0.83-4.51); Absolute Neutrophil Count 13.3 X10^3/uL (2.0-7.7); Basophil# 0.03 X10^3/uL; Basophil% 0.2 % (0-1); Hematocrit 28.3 % (37-47); Hemoglobin 8.7 g/dL (12.0-15.0); Lymphocyte # 1.42 X10^3/ul (0.83-4.51); Lymphocyte % 8.5 % (19-41); Mean Corp Hgb Conc 30.7 g/dL (32-36); Mean Corpuscular Hgb 26.7 pg (27.0-32.0); Mean Corpuscular Volume 86.8 fL (81-99); Mean Platelet Vol. 9.1 fl (6.2-12.0); Monocyte# 1.73 X10^3/uL; Monocyte% 10.4 % (0-10); NRBC Flagged by Analyzer 0 % (0-5); Neutrophil # 13.32 X10^3/uL (2.7-7.7); Neutrophil % 80.2 % (47-70); POSITIVE DIFFERENTIAL YES; Platelet Count 408 K/mm3 (150-450); RBC Distribution Width CV 16.1 % (11.6-14.6); RBC Distribution Width SD 50.7 fl (35.1-43.9); Red Blood Count 3.26 M/mm3 (4.2-5.4); White Blood Count 16.6 K/mm3 (4.4-11.0)
[2023-07-19 04:42] LABS: Differential Indicated SCAN CRITERIA MET
[2023-07-19 05:05] LABS: Differential Comment SCANNED; Hypochromasia 2+
[2023-07-19] MEDS: oxyCODONE 5 MG Tablet PO (05:05)
[2023-07-19] MEDS: ALPRAZolam 0.5 MG Tablet PO ×2 (05:05→13:27)
[2023-07-19 05:18] LABS: Anion Gap 2 (5-15); BUN 15 mg/dL (7-18); BUN/Creat Ratio 17.7 RATIO (10-20); Chloride 103 mmol/L (98-107); Creatinine, Serum 0.85 mg/dL (0.55-1.02); EST Glomerular Filtration Rate 71 mL/min (>60); Est Glom Filt Rate - Afr Amer 86 mL/min (>60); Glucose 135 mg/dL (74-106); Potassium 4.4 mmol/L (3.5-5.1); Sodium Level 134 mmol/L (136-145)
[2023-07-19] MEDS: Budesonide Respules 0.5 MG/2 ML AMPUL.NEB. INHALATION (07:17)
[2023-07-19] MEDS: Ipratropium/Albuterol Sulfate 3 ML AMPUL.NEB INHALATION ×2 (07:17→13:07)
[2023-07-19 07:57] LABS: ACT Activated Clotting Time 125 sec (74-137)
[2023-07-19 07:59] LABS: ACT Activated Clotting Time 251 sec (74-137)
[2023-07-19 08:00] LABS: ACT Activated Clotting Time 221 sec (74-137)
[2023-07-19 08:01] LABS: ACT Activated Clotting Time 239 sec (74-137)
[2023-07-19] MEDS: Aspirin E.C. 81 MG Tablet PO (08:11)
[2023-07-19] MEDS: hydrOXYzine PAM 25 MG Capsule PO (08:11)
[2023-07-19] MEDS: Carvedilol 25 MG Tablet PO (08:11)
[2023-07-19] MEDS: Pantoprazole Sodium 40 MG Tablet PO (08:12)
[2023-07-19] MEDS: Docusate Sodium 100 MG Capsule PO (08:12)
[2023-07-19] MEDS: Clopidogrel Bisulfate 75 MG Tablet PO (08:12)
[2023-07-19] MEDS: Spironolactone 25 MG Tablet PO (08:13)
[2023-07-19] MEDS: Ondansetron 4 MG/2 ML Vial IV (09:47)
[2023-07-19] MEDS: Enoxaparin 40 MG/0.4 ML Syringe SC (09:47)
[2023-07-19] MEDS: Gabapentin 300 MG Capsule 600 MG PO ×2 (10:27→13:27)
[2023-07-19] MEDS: traMADol 50 MG Tablet PO (12:08)
--- NOTE | 2023-07-19 15:20 | CASEMGMT ---
RN CM updated by nursing that patient will need FWW at discharge. RN CM in to discuss needs at discharge. Patient declines therapy at discharge. Patient states she prefers [employer] for DME. Patient had no further questions or concerns. Script received and referral made to [facility] via [facility]. RN CM arranged for walker to be delivered to patient's room prior to discharge.
--- NOTE | 2023-07-19 17:05 | DS.PCM_ITS ---
Providers Date of Admission: 07/13/23 Primary Care Physician: Dr. Nate Gray MD Reason For Visit: ATHEROSCLEROSIS Diagnosis Discharge Diagnosis (1) Atherosclerosis of right lower extremity with rest pain: Status: Acute Code(s): I70.221 - Atherosclerosis of [place] arteries of extremities with rest pain, right leg Qualifiers: Peripheral atherosclerosis artery type: [place] artery Qualified Code(s): I70.221 - Atherosclerosis of [place] arteries of extremities with rest pain, right leg Medications at Discharge Home Medications carvedilol 25 mg tablet 25 mg PO BID BP 05/28/19 spironolactone 25 mg tablet 25 mg PO DAILY BP 05/28/19 alprazolam 0.5 mg tablet 0.5 mg PO TID ANXIETY 02/12/21 psyllium 1 packet PO DAILY PRN constipation 02/12/21 Lactobacillus acidophilus 20 billion cell capsule (Florajen Acidophilus) 10 mg PO DAILY SUPPLEMENT 02/13/22 clopidogrel 75 mg tablet 75 mg PO DAILY BLOOD THINNER 07/14/22 acetaminophen 500 mg tablet 1,000 mg PO Q6H PRN Pain 07/19/22 pantoprazole 40 mg tablet,delayed release 40 mg PO BID GERD 30 days #60 tabs 10/12/22 levalbuterol tartrate 45 mcg/actuation aerosol inhaler 2 inh inhalation Q6H SOB #15 grams 10/31/22 gabapentin 300 mg capsule 600 mg PO .qid nerve 04/18/23 fluticasone fur. 200 mcg-umeclid 62.5 mcg-vilant 25 mcg inhalat.powder (Trelegy Ellipta) 1 inh inhalation DAILY ASTHMA #60 ea 06/25/23 guaifenesin 1,200 mg tablet, extended release 12 hr (Mucinex) 1,200 mg PO BID MUCOUS 07/02/23 lisinopril 40 mg tablet 40 mg PO DAILY Blood pressure 07/14/23 aspirin 81 mg tablet,delayed release 81 mg PO BREAKFAST #0 tabs 07/19/23 atorvastatin 80 mg tablet 80 mg PO QHS #30 tabs 07/19/23 docusate sodium 100 mg capsule 100 mg PO BID 14 days #28 caps 07/19/23 ferrous sulfate 325 mg (65 mg iron) tablet 325 mg PO DAILY #30 tabs 07/19/23 nicotine 14 mg/24 hr daily transdermal patch 14 mg transdermal DAILY 30 days #30 ea 07/19/23 tramadol 50 mg tablet 50 mg PO Q6H PAIN 14 days #56 tabs 07/19/23 Hospital Course Summary of Care Provided Hospital Course: Patient was directly admitted from our office after she presented with progressively worsening RLE pain that was not controlled on her home pain management regimen. She was admitted for IV pain control. She underwent R femoral endarterectomy, right common iliac stenting, and R sartorius flap to address this RLE atherosclerosis. She tolerated the procedure well. Postoperatively she was admitted to the ICU for hemodynamic monitoring and has remain stable throughout her admission. She did have a modest decrease in her Hgb after we had first initiated low fixed rate heparin at admission, however this stabilized and we were ultimately able to restart the low fixed rate heparin without any further decrease in her Hgb. Her Hgb has remained stable postoperatively as well. Given her acute on chronic anemia, will discharge on iron supplement and will continue Aspirin 81mg and Plavix 75mg daily. Postoperatively, the doppler signals in her RLE are significantly improved from prior to surgery and she has noticed improvement in her RLE pain. Today POD#1 she has been voiding without difficulty, ambulating well, tolerating a full diet, and her pain is controlled on her home pain management regimen. Per patient, permission has been granted from her pain management physician for us to prescribed tramadol x 14 days as she is out and does not see pain management for 2 weeks. She was recommended to have some outpatient PT but she declines at this time. She feels ready and safe to discharge to her home where she lives with family. She is medically stable for discharge home with follow-up in our office as scheduled on 08/08/23. Physical Exam Const oriented x3 and no apparent distress Resp normal respiratory effort Auscultation: diminished lung sounds Cardio regular rate and regular rhythm Extremity Extremity Narrative: RLE DP and PT signals triphasic on doppler, foot is warm and pink. R groin incision site with Prevena vacuum dressing in place, C/D/I Skin no rashes or lesions noted Trauma: no lacerations or abrasions Weight / BMI Weight Weight: 170 lb 10.205 oz Body Mass Index (BMI) 34.4 ABG / Lab / Microbiology Data 07/19/23 04:00 07/19/23 04:00 Laboratory: Laboratory Results - last 24 hr 07/18/23 07:44: Activated Clotting Time 125 07/18/23 08:50: Activated Clotting Time 251 H 07/18/23 09:29: Activated Clotting Time 221 H 07/18/23 10:37: Activated Clotting Time 239 H 07/19/23 04:00: WBC 16.6 H, RBC 3.26 L, Hgb 8.7 L, Hct 28.3 L, MCV 86.8, MCH 26.7 L, MCHC 30.7 L, RDW Std Deviation 50.7 H, RDW Coeff of Renea 16.1 H, Plt Count 408, MPV 9.1, Immature Gran % (Auto) 0.700, Neut % (Auto) 80.2 H, Lymph % (Auto) 8.5 L, [place] % (Auto) 10.4 H, Eos % (Auto) 0.0, Baso % (Auto) 0.2, Absolute Neuts (auto) 13.3 H, Absolute Lymphs (auto) 1.42, Nucleated RBC % 0, Differential Comment SCANNED, Diff Path Review May foll, Hypochromasia 2+, Sodium 134 L, Potassium 4.4, Chloride 103, Carbon Dioxide 29.0, Anion Gap 2 L, BUN 15, Creatinine 0.85, Estim Creat Clear Calc 75.00, Est GFR (MDRD) Af Amer 86, Est GFR (MDRD) Non-Af 71, BUN/Creatinine Ratio 17.7, Glucose 135 H, Calcium 9.0 D/C Instructions Discharge Diet: No restrictions May shower in (days): 1 Weight Bearing Status: Weight bearing as tolerated Lifting Restricted to (Lbs): 20 Lifting Restrictions: Do not lift greater than 20 pounds for 3 weeks Call your doctor if your incision/area has: Sudden Increased Bleeding, Increased Pain/ Swelling and Foul Smelling Discharge Call your doctor if you observe: Fever of 101 or Higher and Uncontrolled pain Additional Instructions: There is a Prevena vacuum dressing covering the right groin incision. This d ressing should stay in place for 1 week if possible. If it begins to alarm, malfunction, or does not hold seal you may remove it sooner if needed. Otherwise, you may remove it next Sunday by first holding down the power button until it turns off, then twist the white connector to disconnect the tubing at which point the purple foam will puff up, and then you can just peel the dressing off. You may throw the entire unit away in your trash at home. Please call the office with any questions or concerns about this. Once the vacuum dressing is removed, you may leave the incision open to air. The incision is closed with surgical glue which will continue to protect it. You may shower. It is okay for soap and water to rinse over the incision site. Pat to dry. Do not submerge the incision site in water such as to take a bath or go swimming for 3 weeks. Do not lift greater than 20 pounds for 3 weeks. I have prescribed you two weeks of tramadol at your usual dose as allowed by your pain management physician. You may take tylenol in addition to the tramadol as needed. Due to your anemia, I have also prescribed iron supplements to be taken daily. Please be aware that iron supplements can make your stools appear darker. Iron supplements can also cause constipation. Continue your Aspirin 81mg and Plavix 75mg daily as prescribed. Follow-up in the office on 08/08/2023 as scheduled or sooner as needed. Please Follow Up With: Ella Rosales PA When: 08/08/2023 Meaningful Use Info Meaningful Use Diagnoses (Choose all that apply): None applicable Discharge Plan Admission Admit Date/Time: 07/13/23 10:44 Primary Reason for Your Visit: RLE atherosclerosis with rest pain Attending Provider: Alec Lopez Primary Care Provider: Nate Gray Instructions Additional Instructions / Restrictions: There is a Prevena vacuum dressing covering the right groin incision. This dressing should stay in place for 1 week if possible. If it begins to alarm, ma lfunction, or does not hold seal you may remove it sooner if needed. Otherwise, you may remove it next Sunday by first holding down the power button until it turns off, then twist the white connector to disconnect the tubing at which point the purple foam will puff up, and then you can just peel the dressing off. You may throw the entire unit away in your trash at home. Please call the office with any questions or concerns about this. Once the vacuum dressing is removed, you may leave the incision open to air. The incision is closed with surgical glue which will continue to protect it. You may shower. It is okay for soap and water to rinse over the incision site. Pat to dry. Do not submerge the incision site in water such as to take a bath or go swimming for 3 weeks. Do not lift greater than 20 pounds for 3 weeks. I have prescribed you two weeks of tramadol at your usual dose as allowed by your pain management physician. You may take tylenol in addition to the tramadol as needed. Due to your anemia, I have also prescribed iron supplements to be taken daily. Please be aware that iron supplements can make your stools appear darker. Iron supplements can also cause constipation. Continue your Aspirin 81mg and Plavix 75mg daily as prescribed. Follow-up in the office on 08/08/2023 as scheduled or sooner as needed. Discharge Orders/Prescriptions Prescriptions: New atorvastatin 80 mg tablet 80 mg PO QHS Qty: 30 3RF nicotine 14 mg/24 hr Patch 24 Hour 14 mg transdermal DAILY 30 Days Qty: 30 0RF aspirin 81 mg Tablet,Delayed Release (Dr/Ec) 81 mg PO BREAKFAST Qty: 0 0RF docusate sodium 100 mg Capsule 100 mg PO BID 14 Days Qty: 28 0RF ferrous sulfate 325 mg (65 mg iron) tablet 325 mg PO DAILY Qty: 30 0RF Continued Florajen Acidophilus 20 billion cell capsule 10 mg PO DAILY levalbuterol tartrate 45 mcg/actuation HFA aerosol inhaler 2 inh inhalation Q6H Qty: 15 11RF carvedilol 25 MG tablet 25 mg PO BID Patient Comments: BP spironolactone 25 MG tablet 25 mg PO DAILY alprazolam 0.5 mg tablet 0.5 mg PO TID psyllium Packet 1 packet PO DAILY PRN (Reason: constipation) gabapentin 300 mg capsule 600 mg PO .qid Patient Comments: TAKE 2 CAPSULES BY MOUTH DAILY AT BEDTIME FOR 180 DAYS. clopidogrel 75 mg tablet 75 mg PO DAILY acetaminophen 500 mg Tablet 1,000 mg PO Q6H PRN (Reason: Pain) pantoprazole 40 mg Tablet,Delayed Release (Dr/Ec) 40 mg PO BID 30 Days Qty: 60 0RF lisinopril 40 mg tablet 40 mg PO DAILY tramadol 50 mg tablet 50 mg PO Q6H 14 Days Qty: 56 0RF guaifenesin [Mucinex] 1,200 mg tablet extended release 12hr 1,200 mg PO BID Trelegy Ellipta 200-62.5-25 mcg blister with device 1 inh inhalation DAILY Qty: 60 11RF Discontinued atorvastatin 20 MG tablet 20 mg PO QHS Patient Comments: cholesterol levofloxacin 750 mg tablet 750 mg PO Q24H 7 Days Qty: 7 0RF Referrals / Follow Up: Nate Gray MD [Primary Care Provider] - Disposition Disposition (needs filled in before D/C Order can be placed): Home, Self Care
[2023-07-20 09:19] LABS: Pathologist Review Reviewed
== END 2023-07-19 18:10 | disposition home or self-care (01) | DRG 253 ==
LOC: PCU 17:42 → ICU 07-18 11:27
PROVIDERS: Anesthesiology; Internal Medicine Gastroenterology; Physician Assistant; Admitting Provider Surgery Trauma Surgery; PCP Internal Medicine; Referring Provider Internal Medicine; Visit Provider Surgery Trauma Surgery
PROC: 0DJD8ZZ Inspection of Lower Intestinal Tract, Via Natural or Artificial Opening Endoscopic (ICD-10-PCS; CPT 45378; principal; 2023-07-13 06:25)
PROC: 04CK0ZZ Extirpation of Matter from Right Femoral Artery, Open Approach (ICD-10-PCS; principal; 2023-07-18 07:10)
DX: I70.221 Atherosclerosis of native arteries of extremities with rest pain, right leg (principal); I82.432 Acute embolism and thrombosis of left popliteal vein; D50.9 Iron deficiency anemia, unspecified; F17.210 Nicotine dependence, cigarettes, uncomplicated; E78.00 Pure hypercholesterolemia, unspecified; G89.29 Other chronic pain; J43.9 Emphysema, unspecified; I10 Essential (primary) hypertension; K29.20 Alcoholic gastritis without bleeding; K44.9 Diaphragmatic hernia without obstruction or gangrene; K29.80 Duodenitis without bleeding; K21.9 Gastro-esophageal reflux disease without esophagitis; K63.5 Polyp of colon; Z79.51 Long term (current) use of inhaled steroids; Z79.02 Long term (current) use of antithrombotics/antiplatelets; Z79.899 Other long term (current) drug therapy; Z79.890 Hormone replacement therapy; Z79.01 Long term (current) use of anticoagulants; Z12.11 Encounter for screening for malignant neoplasm of colon
CPT/HCPCS: 36415; 76000; 80048; 85025; 85027; 85347; 85610; 85730; 86850; 86900; 86901; 86920; 86922; 88304; 88305; 88311; 88313; 88342; 93005; 94640; 94762; 97162; 99406; A4648; C1769; C1874; C1894; J7040; J7120; A4216; C1725; J2405

== ENCOUNTER → 2023-07-26 | Outpatient (CLI) | payer MEDICARE, SELFPAY ==
--- NOTE | 2023-07-26 09:49 | VDLE_ITS ---
Reason For Study: swelling RIGHT LEFT GSV is normal. CFV is compressible, spontaneous, phasic, FV is compressible, spontaneous, phasic, competent, and demonstrates normal competent and demonstrates normal augmentation. augmentation. POP V is compressible, spontaneous, phasic, competent and demonstrates normal augmentation. T/P Trunk is compressible. RT PerV is compressible. Acute deep vein thrombosis is noted in the PTV. It is dilated and NONCOMPRESSIBLE. Acute deep vein thrombosis is noted in the Soleus V. It is dilated and NONCOMPRESSIBLE. Hypoechoic area behind the knee measuring 2.57 x 4.57 cm. Area is nonvascular. Unable to image CFV due to recent surgical procedure. Procedure This is a venous duplex using B-mode, color flow and spectral Doppler. Exam performed in department. The exam was diagnostic. A preliminary report was called and/or faxed to Ella Rosales. VL/Venous Duplex US, Unilateral Interpretation Summary Acute deep vein thrombosis is noted in the right posterior tibial vein, soleus vein. Hypoechoic area within popliteal fossa measuring 2.57 x 4.57 cm. Ordering Physician: Ella Rosales Performed By: Castro Leonard RVT
== END | disposition home or self-care (01) ==
LOC: CVS 09:49
PROVIDERS: PCP Internal Medicine; Referring Provider Physician Assistant; Visit Provider Physician Assistant
DX: M79.89 Other specified soft tissue disorders (principal)
CPT/HCPCS: 93971

== ENCOUNTER → 2023-07-31 | Outpatient (CLI) | payer MEDICARE, SELFPAY ==
--- NOTE | 2023-07-31 09:51 | VDLE_ITS ---
Reason For Study: HX RLE DVT RIGHT LEFT GSV is normal. CFV is compressible, spontaneous, phasic, CFV is compressible, spontaneous, phasic, competent, and demonstrates normal competent and demonstrates normal augmentation. augmentation. FV is compressible, spontaneous, phasic, competent and demonstrates normal augmentation. POP V is compressible, spontaneous, phasic, competent and demonstrates normal augmentation. T/P Trunk is compressible. RT PerV is compressible. Acute deep vein thrombosis is noted in the PTV. It is dilated and NONCOMPRESSIBLE. Acute deep vein thrombosis is noted in the Soleal vein. It is dilated and NONCOMPRESSIBLE. Non vascularized area of mixed echoes measuring approximately 5.46cm x 2.97cm is noted in the Rt Groin. Non vascularized anechoic area measuring approximately 6.02cm x 2.47cm is noted in the Rt pop fossa. Procedure This is a venous duplex using B-mode, color flow and spectral Doppler. Exam performed in department. The exam was diagnostic. VL/Venous Duplex US, Unilateral Interpretation Summary Acute deep vein thrombosis is noted in the right posterior tibial vein, soleus vein. Negative for propagation. Non vascularized area of mixed echoes measuring approximately 5.46cm x 2.97cm i s noted in the right groin. Non vascularized anechoic area measuring approximately 6.02cm x 2.47cm is noted in the right popliteal fossa. Ordering Physician: Ella Rosales Referring Physician: Nate Gray M.D. Performed By: Sam Mi RVT
== END | disposition home or self-care (01) ==
LOC: CVS 09:50
PROVIDERS: PCP Internal Medicine; Referring Provider Physician Assistant; Visit Provider Physician Assistant
DX: M79.604 Pain in right leg (principal); I82.409 Acute embolism and thrombosis of unspecified deep veins of unspecified lower extremity
CPT/HCPCS: 93971

== ENCOUNTER → 2023-08-07 | Outpatient (CLI) | payer MEDICARE, SELFPAY ==
--- NOTE | 2023-08-07 12:46 | VDLE_ITS ---
Reason For Study: Right leg pain RIGHT LEFT GSV is normal. CFV is compressible, spontaneous, phasic, CFV is compressible, spontaneous, phasic, competent, and demonstrates normal competent and demonstrates normal augmentation. augmentation. FV is compressible, spontaneous, phasic, competent and demonstrates normal augmentation. POP V is compressible, spontaneous, phasic, competent and demonstrates normal augmentation. T/P Trunk is compressible. RT PerV is compressible. Acute deep vein thrombosis is noted in the PTV. It is dilated and is partially noncompressible. Acute deep vein thrombosis is noted in the Soleal vein. It is dilated and is oartially noncompressible. Non vascularized area of mixed echoes is noted in the Rt Groin. Non vascularized anechoic area measuring approximately 1.63 x 3.60 x 6.1 cm is noted in the Rt pop fossa. Procedure This is a venous duplex using B-mode, color flow and spectral Doppler. Exam performed in department. A preliminary report was called and/or faxed to Beatriz BAUTISTA. VL/Venous Duplex US, Unilateral Interpretation Summary Acute deep vein thrombosis is noted in the right posterior tibial vein, soleus vein. Negative for propagation. Non vascularized area of mixed echoes is noted in the right groin. Non vascularized anechoic area measuring approximately 6.1cm x 3.6 cm x 1.63 cm is noted in the right popliteal fossa. Ordering Physician: Ella Rosales Referring Physician: Nate Gray M.D. Performed By: Gris Jung RVT
== END | disposition home or self-care (01) ==
LOC: CVS 12:46
PROVIDERS: PCP Internal Medicine; Referring Provider Physician Assistant; Visit Provider Physician Assistant
DX: I82.409 Acute embolism and thrombosis of unspecified deep veins of unspecified lower extremity (principal); M79.604 Pain in right leg; M79.89 Other specified soft tissue disorders
CPT/HCPCS: 93971

== ENCOUNTER → 2023-08-27 | Outpatient (CLI) | payer MEDICARE, SELFPAY ==
--- NOTE | 2023-08-27 08:58 | ART_ITS ---
Reason For Study: S/P Rt femoral endarectomy and Rt LY stent Procedure A bilateral lower extremity continuous wave Doppler with analog waveform analysis and ankle brachial indexes. Left Segmental Pressures Left brachial= 169mmHg. Left posterior tibial artery = 154mmHg. Left dorsalis pedis artery = 133mmHg. Left digit = 114 mmHg. The left dorsalis pedis waveforms are biphasic. The left posterior tibial artery waveforms are biphasic. Right Segmental Pressures Right brachial= 159mmHg. Right posterior tibial artery = 105mmHg. Right dorsalis pedis artery = 91mmHg. Right digit = 63 mmHg. The right dorsalis pedis waveforms are monophasic. The right posterior tibial artery waveforms are monophasic. Indices The right ankle brachial index by the dorsalis pedis is 0.54. The right ankle brachial index by the posterior tibial artery is 0.62. The right digital-brachial index is 0.37. The left ankle brachial index by the dorsalis pedis is 0.79. The left ankle brachial index by the posterior tibial artery is 0.91. The left digital-brachial index is 0.67. VL/Ankle Brachial Index Interpretation Summary Right SHAKIR 0.62, moderate arterial insufficiency. Doppler/PVR waveforms of the r ight ankle moderately diminished at rest. Left SHAKIR 0.91, mild arterial insufficiency. Doppler/PVR waveforms of the left a nkle mildly diminished at rest. Ordering Physician: Ella Rosales Referring Physician: Nate Gray M.D. Performed By: Gris Jung RVT
--- NOTE | 2023-08-27 08:58 | ADUL_ITS ---
Reason For Study: S/P Rt femoral endarectomy and Rt LY stent Right Velocities Ext. Iliac Artery, dist = 250.3 cm./sec. Common Femoral Artery, mid = 162.6 cm./sec. SFA prox-mid, No Flow noted. SFA mid/distal, 53.5 cm/sec. SFA mid/distal, receiving flow from deep branch. SFA distal, 62.2 cm/sec. Profunda artery, origin, 192.6 cm/sec. Profunda artery, prox, 140.7 cm/sec. Popliteal Artery, mid = 53.4 cm./sec. Post. Tibial Artery, prox = 68.8 cm./sec. Post. Tibial Artery, mid = 66.6 cm./sec. Post. Tibial Artery, dist = 50.1 cm./sec. Peroneal Artery, prox = 0 cm./sec. Peroneal Artery, mid = 20.6 cm./sec. Peroneal Artery,dist = 19.7 cm./sec. Ant. Tibial Artery, prox = 45.9 cm./sec. Ant. Tibial Artery, mid = 37.2 cm./sec. Ant. Tibial Artery, dist = 45.9 cm./sec. Procedure Exam performed in department. Preliminary report given to Beatriz BAUTISTA. / Art Duplex Unilat Lower Ext Interpretation Summary Right common femoral and profunda arteries patent with normal velocities. Known SFA occlusion with popliteal reconstitution. Elevated velocities in distal external iliac artery Ordering Physician: Ella Rosales Referring Physician: Nate Gray M.D. Performed By: Gris Jung RVT
--- NOTE | 2023-08-27 08:58 | VDLE_ITS ---
Reason For Study: Right leg pain, Known DVT RIGHT LEFT GSV is normal. CFV is compressible, spontaneous, phasic, CFV is compressible, spontaneous, phasic, competent, and demonstrates normal competent and demonstrates normal augmentation. augmentation. FV is compressible, spontaneous, phasic, competent and demonstrates normal augmentation. POP V is compressible, spontaneous, phasic, competent and demonstrates normal augmentation. T/P Trunk is compressible. RT PerV is compressible. PTV is partially compressible with minimal blood flow noted. Acute deep vein thrombosis is noted in the Soleal vein. It is dilated and is partially noncompressible. Non vascularized anechoic area measuring approximately 1.63 x 3.60 x 6.1 cm is noted in the Rt pop fossa. Procedure This is a venous duplex using B-mode, color flow and spectral Doppler. Exam performed in department. Compared to 08/07/23. VL/Venous Duplex US, Unilateral Interpretation Summary Acute deep vein thrombosis is noted in the right soleus vein. Chronic deep vein thrombosis is noted in the right posterior tibial vein. Negative for propagation Ordering Physician: Ella Rosales Referring Physician: Nate Gray M.D. Performed By: Gris Jung RVT
== END | disposition home or self-care (01) ==
LOC: CVS 08:57
PROVIDERS: PCP Internal Medicine; Referring Provider Physician Assistant; Visit Provider Physician Assistant
DX: I70.223 Atherosclerosis of native arteries of extremities with rest pain, bilateral legs (principal); M79.605 Pain in left leg; Z48.812 Encounter for surgical aftercare following surgery on the circulatory system
CPT/HCPCS: 93922; 93926; 93971

== ENCOUNTER 2023-11-06 13:13 | Inpatient (IN) | payer MEDICARE, SELFPAY ==
[2023-11-06] VITALS (10 sets, daily range): BP systolic 127–140; BP diastolic 70–84; PULSE 88–101; RESP 18–27; TEMP 36.4–36.7; O2SAT 92–98; BMI 33.7; BMI 33.9
--- NOTE | 2023-11-06 15:41 | EDS_ITS ---
HPI <POLI Catalan - Last Filed: 11/06/23 17:02> History of Present Illness Chief Complaint: Shortness of Breath Narrative Narrative: Patient is a 68-year-old female with a history of COPD who still smokes a couple cigarettes daily, GERD, anxiety, who presents to the emergency department for ongoing shortness of breath. Patient has been having worsening wheezing over the last several weeks. Patient has been tried on prednisone outpatient as well as antibiotics with no relief. Today, the patient could not breathe, she does have oxygen at home as needed however states she is wearing it all the time. She is here for evaluation. Denies any fever or chills, sick contacts. [facility] <POLI Catalan - Last Filed: 11/06/23 17:02> [facility] Medical History (Updated 11/06/23 @ 16:50 by POLI Catalan) Alcohol abuse Asthma Back pain due to injury Chronic headaches Chronic pain Closed fracture of fifth metatarsal bone of left foot Clostridium difficile colitis COPD (chronic obstructive pulmonary disease) Diverticulitis Diverticulitis of colon without hemorrhage Duodenal ulcer Dyspnea Emphysema of lung Essential hypertension Full dentures H/O spleen injury High cholesterol History of cardiovascular stress test History of pelvic hematoma History of stress test History of ulceration Hoarseness Hyperlipemia Impaired fasting glucose Incisional hernia without mention of obstruction or gangrene Injury of head and neck Injury, spleen, with capsular tears Leg pain Loss of hearing Low iron On home oxygen therapy Osteoarthritis Peptic ulcer disease Pneumohemothorax, traumatic Post-menopausal Pseudocyst of pancreas Rheumatoid arthritis S/P arteriogram of extremity SBO (small bowel obstruction) Shortness of breath Shortness of breath on exertion Smoker Spleen hematoma Ulcer Wears dentures Wears glasses Home Medications carvedilol 25 mg tablet 25 mg PO BID HEART 05/28/19 [History Last Taken 07/13/23 02:30] spironolactone 25 mg tablet 25 mg PO DAILY BLOOD PRESSURE 05/28/19 [History Last Taken 10/08/22] alprazolam 0.5 mg tablet 0.5 mg PO TID PRN ANXIETY 02/12/21 [History Last Taken 07/13/23 04:00] psyllium 1 packet PO DAILY PRN constipation 02/12/21 [History Last Taken Unknown] Lactobacillus acidophilus 20 billion cell capsule (Florajen Acidophilus) 10 mg PO DAILY GUT HEALTH 02/13/22 [History Last Taken 10/08/22] clopidogrel 75 mg tablet 75 mg PO DAILY BLOOD THINNER 07/14/22 [History Last Taken 05/16/23] acetaminophen 500 mg tablet 1,000 mg PO Q6H PRN PAIN 07/19/22 [History Last Taken 07/13/23 02:00] pantoprazole 40 mg tablet,delayed release 40 mg PO BID GERD 30 days #60 tabs 10/12/22 [Rx Last Taken 07/13/23 04:00] levalbuterol tartrate 45 mcg/actuation aerosol inhaler 2 inh inhalation Q6H SHORTNESS OF BREATH #15 grams 10/31/22 [Rx Last Taken Unknown] fluticasone fur. 200 mcg-umeclid 62.5 mcg-vilant 25 mcg inhalat.powder (Trelegy Ellipta) 1 inh inhalation DAILY ASTHMA #60 ea 06/25/23 [Rx Last Taken 07/13/23 04:00] guaifenesin 1,200 mg tablet, extended release 12 hr (Mucinex) 1,200 mg PO BID MUCOUS 07/02/23 [History Last Taken Unknown] lisinopril 40 mg tablet 40 mg PO DAILY BLOOD PRESSURE 07/14/23 [History Last Taken Unknown] aspirin 81 mg tablet,delayed release 81 mg PO BREAKFAST HEART HEALTH #0 tabs 07/19/23 [Rx Last Taken Unknown] docusate sodium 100 mg capsule 100 mg PO BID CONSTIPATION 14 days #28 caps 07/19/23 [Rx Last Taken Unknown] ferrous sulfate 325 mg (65 mg iron) tablet 325 mg PO DAILY SUPPLEMENT #30 tabs 07/19/23 [Rx Last Taken Unknown] nicotine 14 mg/24 hr daily transdermal patch 14 mg transdermal DAILY 30 days #30 ea 07/19/23 [Rx Last Taken Unknown] atorvastatin 20 mg tablet 20 mg PO QHS CHOLESTEROL 11/06/23 [History Last Taken Unknown] gabapentin 600 mg tablet 600 mg PO 4X/DAY NERVE PAIN 11/06/23 [History Last Taken Unknown] prednisone 20 mg tablet 60 mg PO DAILY 11/06/23 [History Last Taken Unknown] tramadol 50 mg tablet 50 mg PO 4X/DAY PAIN 11/06/23 [History Last Taken Unknown] Allergy/AdvReac Type Severity Reaction Status Date / Time amlodipine Allergy Unknown Verified 11/06/23 15:27 clonidine Allergy Unknown Verified 11/06/23 15:27 adhesive AdvReac Rash Verified 11/06/23 15:27 codeine AdvReac Nausea Verified 11/06/23 15:27 fentanyl AdvReac Other Verified 11/06/23 15:27 Family History Mother Heart disease Hypertension Diabetes Sister Hypertension Brother Hypertension Sister Hypertension Cervical cancer Brother Pancreatic cancer Surgical History H/O colostomy H/O: History of hernia repair Hx of cervical spine surgery Social History household members: spouse housing: house Smoking Status: Current every day smoker tobacco type: cigarettes Electronic Cigarette Use: not used second hand exposure: Yes alcohol intake: current alcohol intake frequency: a few times a week substance use type: does not use caffeine: Yes what type of physical activity do you participate in: bicycling frequency: 1-2 times per week ROS <POLI Catalan - Last Filed: 11/06/23 17:02> ROS ED ROS Narrative Constitutional: Negative for fever, chills, weight loss, weakness Eyes: Negative for vision loss, vision change, double vision ENT: Negative for any sore throat, ear pain, congestion Cardiovascular: Negative for any chest pain, tightness, palpitations Respiratory: Negative for any sputum production, hemoptysis. Positive for cough, dyspnea, dyspnea on exertion, orthopnea Gastrointestinal: Negative for any abdominal pain, nausea, vomiting, diarrhea, constipation, blood in stool, blood in vomit : Negative for any urinary frequency, dysuria, retention, blood in urine Muscle skeletal: Negative for any myalgias, arthralgias, neck pain, back pain Neurological: Negative for any headache, syncope, paresthesias, dizziness Skin: Negative for any rashes, lumps, itching, abrasions, lacerations Psychiatric: Negative for any depression, anxiety, stress, suicidal ideation, homicidal ideation Hematologic: Negative for any easy bruising, excessive bruising, easy bleeding Allergies: Negative for any eczema, hives, rash EXAM <POLI Catalan - Last Filed: 11/06/23 17:02> Physical Exam Narrative Exam Narrative: Vital signs reviewed. Patient has audible wheezing throughout the room. Patient appears short of breath, patient is tachypneic, conversational dyspnea. 89% on room air placed on 2 L. HEET: Head normocephalic atraumatic, TMs clear bilaterally. Posterior pharynx is clear, moist mucous membranes. Nares clear bilaterally. Neck: Supple with no lymphadenopathy or tenderness. No signs of meningismus. Cardiac: Regular rate and rhythm no murmurs gallops or rubs, equal peripheral pulses bilaterally. Respiratory: Patient has inspiratory, expiratory wheezes throughout pulmonary exam.. No chest tenderness. Tachypnea, accessory muscle use. Abdomen: Soft, nontender, nondistended. No abdominal bruit or pulsatile masses. No hepatosplenomegaly Extremities: No peripheral edema, no signs of gross trauma or deformity. Active full range of motion of all extremities. Neuro: Cranial nerves II through XII intact, no focal neurological deficits. Skin: Clean dry and intact with no rash, purpura, petechiae, vesicles or pustules. Backs/flank: No CVA tenderness, no midline spinal tenderness, no deformity. Psych: Normal mood and affect. No SI, HI or acute psychosis. Const Vital Signs: 11/06/23 13:14 11/06/23 15:30 11/06/23 15:32 Temperature 97.5 F L Temperature Source Temporal Pulse Rate 94 101 H Respiratory Rate 24 H 27 H Respiratory Effort Short of Breath Labored Accessory Muscle Use Respiratory Depth Deep Respiratory Pattern Irregular Blood Pressure 127/75 H Blood Pressure Mean 92 Pulse Ox 97 92 Oxygen Delivery Method Room Air Room Air Oxygen Flow Rate (L/min) 11/06/23 15:39 11/06/23 15:39 11/06/23 15:40 Temperature Temperature Source Pulse Rate Respiratory Rate 20 H Respiratory Effort Respiratory Depth Respiratory Pattern Blood Pressure Blood Pressure Mean Pulse Ox 95 95 Oxygen Delivery Method Nasal Cannula Room Air Nasal Cannula Oxygen Flow Rate (L/min) 2 11/06/23 15:43 11/06/23 15:57 11/06/23 16:45 Temperature Temperature Source Pulse Rate 89 89 Respiratory Rate 24 H 26 H Respiratory Effort Respiratory Depth Respiratory Pattern Normal Blood Pressure 127/84 H Blood Pressure Mean 98 Pulse Ox 97 95 Oxygen Delivery Method Nasal Cannula Oxygen Flow Rate (L/min) 2 11/06/23 17:10 Temperature Temperature Source Pulse Rate 92 Respiratory Rate 22 H Respiratory Effort Respiratory Depth Respiratory Pattern Blood Pressure 127/84 H Blood Pressure Mean 98 Pulse Ox 92 Oxygen Delivery Method Nasal Cannula Oxygen Flow Rate (L/min) 2 <Dr. Alec Dixon DO - Last Filed: 11/06/23 17:29> Physical Exam Const Vital Signs: 11/06/23 13:14 11/06/23 15:30 11/06/23 15:32 Temperature 97.5 F L Temperature Source Temporal Pulse Rate 94 101 H Respiratory Rate 24 H 27 H Respiratory Effort Short of Breath Labored Accessory Muscle Use Respiratory Depth Deep Respiratory Pattern Irregular Blood Pressure 127/75 H Blood Pressure Mean 92 Pulse Ox 97 92 Oxygen Delivery Method Room Air Room Air Oxygen Flow Rate (L/min) 11/06/23 15:39 11/06/23 15:39 11/06/23 15:40 Temperature Temperature Source Pulse Rate Respiratory Rate 20 H Respiratory Effort Respiratory Depth Respiratory Pattern Blood Pressure Blood Pressure Mean Pulse Ox 95 95 Oxygen Delivery Method Nasal Cannula Room Air Nasal Cannula Oxygen Flow Rate (L/min) 2 11/06/23 15:43 11/06/23 15:57 11/06/23 16:45 Temperature Temperature Source Pulse Rate 89 89 Respiratory Rate 24 H 26 H Respiratory Effort Respiratory Depth Respiratory Pattern Normal Blood Pressure 127/84 H Blood Pressure Mean 98 Pulse Ox 97 95 Oxygen Delivery Method Nasal Cannula Oxygen Flow Rate (L/min) 2 11/06/23 17:10 Temperature Temperature Source Pulse Rate 92 Respiratory Rate 22 H Respiratory Effort Respiratory Depth Respiratory Pattern Blood Pressure 127/84 H Blood Pressure Mean 98 Pulse Ox 92 Oxygen Delivery Method Nasal Cannula Oxygen Flow Rate (L/min) 2 [facility] <POLI Catalan - Last Filed: 11/06/23 17:02> [facility] Lab Data Labs: Laboratory Results - last 24 hr 11/06/23 15:37 WBC 8.4 RBC 3.54 L Hgb 8.8 L Hct 28.6 L MCV 80.8 L MCH 24.9 L MCHC 30.8 L RDW Std Deviation 54.3 H RDW Coeff of Renea 18.3 H Plt Count 270 MPV 9.1 Immature Gran % (Auto) 0.600 Neut % (Auto) 78.3 H Lymph % (Auto) 12.5 L [place] % (Auto) 7.8 Eos % (Auto) 0.7 Baso % (Auto) 0.1 Absolute Neuts (auto) 6.6 Absolute Lymphs (auto) 1.05 Nucleated RBC % 0 Sodium 131 L Potassium 4.7 Chloride 103 Carbon Dioxide 25.0 Anion Gap 3 L BUN 12 Creatinine 0.92 Estim Creat Clear Calc 53.22 Est GFR (MDRD) Af Amer 78 Est GFR (MDRD) Non-Af 65 BUN/Creatinine Ratio 13.1 Glucose 101 Calcium 8.4 L Troponin I High Sens 5 B-Natriuretic Peptide 55.5 Radiography Diagnostic Testing: Clinical Impression(s) from Imaging Studies Chest X-Ray 11/06/23 16:29 IMPRESSION: No radiographic evidence of acute cardiopulmonary disease. Electronically Signed: Adolfo Ballard MD at 16:48 EST , Treatment and Re-Evaluation :: Patient appears to be in mild to moderate respiratory distress, tachypneic, conversational dyspnea. Patient does have audible wheezing. Differential diagnose includes COPD, community-acquired pneumonia, pneumothorax, CHF exacerbation. Patient received a cardiac workup including a two-view chest x- ray viral screening. Patient will receive breathing treatments, IV steroids. Upon my initial evaluation, the patient was hypoxic, placed on 2 L. Patient will need to greatly improved to be discharged. On reevaluation, patient still had significant wheezing. Patient was on 2 L nasal cannula, I took the patient off 2 L, she she immediately dropped to 88%, became tachypneic. Patient's CBC shows a slight anemia with a hemoglobin of 8.8, this appears baseline for the patient. Chemistries show slight hyponatremia, kidney function within normal limits, troponin was negative, BNP was negative. Chest x-ray showed chronic changes. Patient was positive for COVID-19. At this time, secondary to the wheezing, tachypnea, increased oxygen demand, COVID-19 diagnosis, I do believe the patient will benefit from admission. She still has adventitious lung sounds. I spoke with the hospitalist who is agreement. Patient is stable for admission. <Dr. Alec Dixon, DO - Last Filed: 11/06/23 17:29> [facility] Narrative Medical decision making narrative: I have personally performed a face to face assessment of the patient and have reviewed the LISA Note. I performed a substantive portion of the visit including all aspects of the following. My teixeira findings include: History: Patient presents with shortness of breath that has been getting progressively worse over the past 3 weeks. Patient states her primary care physician prescribed her an antibiotic and steroid. Patient states it started to improve. Patient states it returned. Patient denies any fevers or chills. Patient denies any nausea or vomiting. Patient admits to some substernal chest pain that radiates into her back. Exam: Vital signs are stable except for mild tachypnea of 24. Patient is afebrile. Patient is in no acute distress. Oral mucosa is pink and moist. Neck is supple. Trachea is midline. There is no JVD or lymphadenopathy noted. Heart was regular rate and rhythm. Lungs showed diffuse expiratory wheezing. There is good respiratory effort noted. Abdomen is soft. Bowel sounds are normal. There is no tenderness. Extremities are intact. There is no edema or calf tenderness. Cranial nerves II through XII are intact. There are no focal motor or sensory deficits noted. Medical Decision Making: Differential diagnosis includes pneumonia, COPD exacerbation, viral infection, and asthma. EKG will be obtained to assess for cardiac dysrhythmia and cardiac ischemia. Chest x-ray will be obtained to assess for pneumonia and pneumothorax. CBC will be obtained to assess for leukocytosis and anemia. Basic metabolic profile will be obtained to assess for electrolyte abnormality and renal function. BNP will be obtained to assess for congestive heart failure. High-sensitivity troponin will be obtained to assess for cardiac ischemia. COVID-19, influenza, and RSV PCR will be obtained to assess for viral infection. Patient was given a DuoNeb aerosol here. Patient was given a dose of Solu- Medrol. EKG was obtained. On my independent interpretation, it showed a normal sinus rhythm with a rate of 92. MA interval, QRS interval, and QTc intervals were all normal. [place] was normal. There are no acute ST or T wave changes. CBC was reviewed. There is a mild anemia with a hemoglobin of 8.8 and hematocrit of 48.6. Basic metabolic profile was reviewed. Sodium was slightly low at 131. The remainder was essentially within normal limits. Anion gap was normal. High-sensitivity troponin was reviewed and was normal at 5. BNP was reviewed and was normal at 55.5. COVID-19 PCR was reviewed and was positive. Influenza PCR was reviewed and was negative for influenza A and influenza B. RSV PCR was reviewed and was negative. PA and lateral chest x-ray was obtained. There are 2 views. On my independent interpretation, lung marie are clear. There is normal cardiac silhouette. Bony thorax is normal. There is no acute process noted. Radiologist also interpreted the x-ray and agrees. Patient's oxygen saturation dropped to 86% after getting out of bed and standing up prior to even ambulating. Because of this, it was recommended the patient be admitted to the hospital. Case was discussed with the hospitalist. She will admit the patient to her service. Patient understood and was agreeable with the plan. All questions were answered. Lab Data Labs: Laboratory Results - last 24 hr 11/06/23 15:37 WBC 8.4 RBC 3.54 L Hgb 8.8 L Hct 28.6 L MCV 80.8 L MCH 24.9 L MCHC 30.8 L RDW Std Deviation 54.3 H RDW Coeff of Renea 18.3 H Plt Count 270 MPV 9.1 Immature Gran % (Auto) 0.600 Neut % (Auto) 78.3 H Lymph % (Auto) 12.5 L [place] % (Auto) 7.8 Eos % (Auto) 0.7 Baso % (Auto) 0.1 Absolute Neuts (auto) 6.6 Absolute Lymphs (auto) 1.05 Nucleated RBC % 0 Sodium 131 L Potassium 4.7 Chloride 103 Carbon Dioxide 25.0 Anion Gap 3 L BUN 12 Creatinine 0.92 Estim Creat Clear Calc 53.22 Est GFR (MDRD) Af Amer 78 Est GFR (MDRD) Non-Af 65 BUN/Creatinine Ratio 13.1 Glucose 101 Calcium 8.4 L Troponin I High Sens 5 B-Natriuretic Peptide 55.5 Radiography Diagnostic Testing: Clinical Impression(s) from Imaging Studies Chest X-Ray 11/06/23 16:29 IMPRESSION: No radiographic evidence of acute cardiopulmonary disease. Electronically Signed: Adolfo Ballard MD at 16:48 EST , EKG Initial EKG: Attestation: I personally reviewed and interpreted this EKG as follows: Interpretation: Sinus Rhythm (92) and No Acute Injury Pattern Comments: EKG was obtained. On my independent interpretation, it showed a normal sinus rhythm with a rate of 92. MA interval, QRS interval, and QTc intervals were all normal. [place] was normal. There are no acute ST or T wave changes. Prior EKG tracings: available for review Prior: Unchanged (07/13/2023) Discharge Plan Dx/Rx/DC Orders Clinical Impression: COVID-19, Hypoxia, Acute exacerbation of chronic obstructive pulmonary disease Disposition Disposition: Acute Care Hospital [facility]
[2023-11-06] MEDS: MethylPREDNISolone 125 MG/2 ML Vial IV (15:43)
[2023-11-06 15:46] LABS: Absolute Lymphocyte Count 1.05 X10^3/uL (0.83-4.51); Absolute Neutrophil Count 6.6 X10^3/uL (2.0-7.7); Basophil# 0.01 X10^3/uL; Basophil% 0.1 % (0-1); Eosinophil# 0.06 X10^3/uL; Eosinophils% 0.7 % (0-5); Hematocrit 28.6 % (37-47); Hemoglobin 8.8 g/dL (12.0-15.0); Lymphocyte # 1.05 X10^3/ul (0.83-4.51); Lymphocyte % 12.5 % (19-41); Mean Corp Hgb Conc 30.8 g/dL (32-36); Mean Corpuscular Hgb 24.9 pg (27.0-32.0); Mean Corpuscular Volume 80.8 fL (81-99); Mean Platelet Vol. 9.1 fl (6.2-12.0); Monocyte# 0.65 X10^3/uL; Monocyte% 7.8 % (0-10); NRBC Flagged by Analyzer 0 % (0-5); Neutrophil # 6.55 X10^3/uL (2.7-7.7); Neutrophil % 78.3 % (47-70); Platelet Count 270 K/mm3 (150-450); RBC Distribution Width CV 18.3 % (11.6-14.6); RBC Distribution Width SD 54.3 fl (35.1-43.9); Red Blood Count 3.54 M/mm3 (4.2-5.4); White Blood Count 8.4 K/mm3 (4.4-11.0)
[2023-11-06] MEDS: Albuterol 2.5 MG/3 ML VIAL.NEB. INHALATION (15:55)
[2023-11-06] MEDS: Ipratropium/Albuterol Sulfate 3 ML AMPUL.NEB 6 ML INHALATION (15:55)
[2023-11-06 16:05] LABS: BNP,B-Type NATRIURETIC PEPTIDE 55.5 pg/mL (0-100)
[2023-11-06 16:20] LABS: Anion Gap 3 (5-15); BUN 12 mg/dL (7-18); BUN/Creat Ratio 13.1 RATIO (10-20); Calcium,Total 8.4 mg/dL (8.5-10.1); Chloride 103 mmol/L (98-107); Creatinine, Serum 0.92 mg/dL (0.55-1.02); EST Glomerular Filtration Rate 65 mL/min (>60); Est Glom Filt Rate - Afr Amer 78 mL/min (>60); Estimated Creatinine Clearance 53.22 ml/min; Glucose 101 mg/dL (74-106); Potassium 4.7 mmol/L (3.5-5.1); Sodium Level 131 mmol/L (136-145); Troponin-I HS 5 pg/mL (3.0-54.0)
--- NOTE | 2023-11-06 16:29 | RAD_ITS ---
EXAM: XR CHEST, 2 VIEWS CLINICAL INDICATION: cough TECHNIQUE: Frontal and lateral views of the chest. COMPARISON: 10/09/2022 FINDINGS: LUNGS AND PLEURAL SPACES: Unremarkable. No consolidation or edema. No pneumothorax. No effusion. HEART: Unremarkable. Cardiac silhouette not enlarged. MEDIASTINUM: Central airways and mediastinal contour are unremarkable. BONES/JOINTS: Unremarkable. No acute fracture. SOFT TISSUES: Unremarkable. RAD/Chest PA and Lateral IMPRESSION: No radiographic evidence of acute cardiopulmonary disease. Electronically Signed: Adolfo Ballard MD at 16:48 EST ,
--- NOTE | 2023-11-06 17:18 | HP.PCM.HOS_ITS ---
HPI - General General Date of Admission: 11/06/23 Date of Service: 11/06/23 Chief Complaint: SOB and hypoxia HPI Narrative BAHMAN MICHELE, is a 68 y/o F with history of GERD, COPD, tobacco use, anxiety who presented to [facility] 11/06/2023 for increasing shortness of breath and worsening wheezing over the past several weeks. She was tried on prednisone as an outpatient and antibiotics with no relief. Today she acutely w orsened and presented to the ED in the ED chest x-ray unremarkable and BNP within normal limits however patient tachypneic with respiratory rates up to high 20s when she is found to be COVID-positive. When O2 was taken off and she was moved to the side of the bed she dropped to 86/87% on room air and her O2 was replaced and hospitalist contacted for admission. Patient evaluated at bedside with daughter, reportedly has been sick for about 2-1/2 to 3 weeks and has progressively worsened and today she is feeling weak and lightheaded and short of breath and checked her oxygen and she was 84%, she put on O2 and called her daughter and presented to the emergency department. Has been coughing wi thout significant sputum production, no fevers or chills, did have diarrhea but that has improved. Has some chronic problems with neuropathy in her lower extremities but no other acute complaints at this time. COUNT INCLUDES THE [facility] Medical History (Updated 11/06/23 @ 17:[address] Mari Johnson MD) Alcohol abuse Asthma Back pain due to injury Chronic headaches Chronic pain Closed fracture of fifth metatarsal bone of left foot Clostridium difficile colitis COPD (chronic obstructive pulmonary disease) Diverticulitis Diverticulitis of colon without hemorrhage Duodenal ulcer Dyspnea Emphysema of lung Essential hypertension Full dentures H/O spleen injury High cholesterol History of cardiovascular stress test History of pelvic hematoma History of stress test History of ulceration Hoarseness Hyperlipemia Impaired fasting glucose Incisional hernia without mention of obstruction or gangrene Injury of head and neck Injury, spleen, with capsular tears Leg pain Loss of hearing Low iron On home oxygen therapy Osteoarthritis Peptic ulcer disease Pneumohemothorax, traumatic Post-menopausal Pseudocyst of pancreas Rheumatoid arthritis S/P arteriogram of extremity SBO (small bowel obstruction) Shortness of breath Shortness of breath on exertion Smoker Spleen hematoma Ulcer Wears dentures Wears glasses Home Medications carvedilol 25 mg tablet 25 mg PO BID HEART 05/28/19 [History Last Taken 11/06/23] spironolactone 25 mg tablet 25 mg PO DAILY BLOOD PRESSURE 05/28/19 [History Last Taken 11/06/23] alprazolam 0.5 mg tablet 0.5 mg PO TID PRN ANXIETY 02/12/21 [History Last Taken 07/13/23 04:00] psyllium 1 packet PO DAILY PRN CONSTPATION 02/12/21 [History Last Taken Unknown] clopidogrel 75 mg tablet 75 mg PO DAILY BLOOD THINNER 07/14/22 [History Last Taken 11/06/23] acetaminophen 500 mg tablet 1,000 mg PO Q6H PRN PAIN 07/19/22 [History Last Taken 07/13/23 02:00] pantoprazole 40 mg tablet,delayed release 40 mg PO BID GERD 30 days #60 tabs 10/12/22 [Rx Last Taken 11/06/23] fluticasone fur. 200 mcg-umeclid 62.5 mcg-vilant 25 mcg inhalat.powder (Trelegy Ellipta) 1 inh inhalation DAILY ASTHMA #60 ea 06/25/23 [Rx Last Taken 11/06/23] guaifenesin 1,200 mg tablet, extended release 12 hr (Mucinex) 1,200 mg PO BID PRN MUCOUS 07/02/23 [History Last Taken Unknown] lisinopril 40 mg tablet 40 mg PO DAILY BLOOD PRESSURE 07/14/23 [History Last Taken 11/06/23] aspirin 81 mg tablet,delayed release 81 mg PO BREAKFAST HEART HEALTH #0 tabs 07/19/23 [Rx Last Taken 11/06/23] ferrous sulfate 325 mg (65 mg iron) tablet 325 mg PO DAILY SUPPLEMENT #30 tabs 07/19/23 [Rx Last Taken 11/06/23] atorvastatin 20 mg tablet 20 mg PO QHS CHOLESTEROL 11/06/23 [History Last Taken 11/05/23] docusate sodium 100 mg capsule 100 mg PO BID PRN CONSTIPATION 11/06/23 [History Last Taken Unknown] gabapentin 600 mg tablet 600 mg PO 4X/DAY NERVE PAIN 11/06/23 [History Last Taken 11/06/23] tramadol 50 mg tablet 50 mg PO 4X/DAY PAIN 11/06/23 [History Last Taken 11/06/23] Allergy/AdvReac Type Severity Reaction Status Date / Time amlodipine Allergy Unknown Verified 11/06/23 15:27 clonidine Allergy Unknown Verified 11/06/23 15:27 adhesive AdvReac Rash Verified 11/06/23 15:27 codeine AdvReac Nausea Verified 11/06/23 15:27 fentanyl AdvReac Other Verified 11/06/23 15:27 Family History Mother Heart disease Hypertension Diabetes Sister Hypertension Brother Hypertension Sister Hypertension Cervical cancer Brother Pancreatic cancer Surgical History H/O colostomy H/O: History of hernia repair Hx of cervical spine surgery Social History household members: spouse housing: house Smoking Status: Current every day smoker tobacco type: cigarettes Electronic Cigarette Use: not used second hand exposure: Yes alcohol intake: current alcohol intake frequency: a few times a week substance use type: does not use caffeine: Yes what type of physical activity do you participate in: bicycling frequency: 1-2 times per week ROS ROS Narrative General: Denies fever/chills HENT: Did have a little bit of a headache, does have some nasal congestion, denies sore throat EYES: Denies changes in vision Resp: Increased cough and increased shortness of breath Cardiac: Denies chest pain GI: Denies abdominal pain, had some diarrhea that is resolved, denies nausea/vomiting : Denies changes in urination Extremity: Denies swelling MSK: Denies weakness Neuro: Some chronic neuropathic changes in legs Heme: Denies any bleeding or bruising Skin: Denies rashes Psychiatric: No complaints voiced Vital Signs Vital Signs Vital Signs: 11/06/23 13:14 11/06/23 15:30 11/06/23 15:32 Temperature 97.5 F L Temperature Source Temporal Pulse Rate 94 101 H Respiratory Rate 24 H 27 H Respiratory Effort Short of Breath Labored Accessory Muscle Use Respiratory Depth Deep Respiratory Pattern Irregular Blood Pressure 127/75 H Blood Pressure Mean 92 Pulse Ox 97 92 Oxygen Delivery Method Room Air Room Air Oxygen Flow Rate (L/min) 11/06/23 15:39 11/06/23 15:39 11/06/23 15:40 Temperature Temperature Source Pulse Rate Respiratory Rate 20 H Respiratory Effort Respiratory Depth Respiratory Pattern Blood Pressure Blood Pressure Mean Pulse Ox 95 95 Oxygen Delivery Method Nasal Cannula Room Air Nasal Cannula Oxygen Flow Rate (L/min) 2 11/06/23 15:43 11/06/23 15:57 11/06/23 16:45 Temperature Temperature Source Pulse Rate 89 89 Respiratory Rate 24 H 26 H Respiratory Effort Respiratory Depth Respiratory Pattern Normal Blood Pressure 127/84 H Blood Pressure Mean 98 Pulse Ox 97 95 Oxygen Delivery Method Nasal Cannula Oxygen Flow Rate (L/min) 2 11/06/23 17:10 Temperature Temperature Source Pulse Rate 92 Respiratory Rate 22 H Respiratory Effort Respiratory Depth Respiratory Pattern Blood Pressure 127/84 H Blood Pressure Mean 98 Pulse Ox 92 Oxygen Delivery Method Nasal Cannula Oxygen Flow Rate (L/min) 2 Weight Weight: 75.75 kg Body Mass Index (BMI) 33.7 Physical Exam Narrative General: Alert, oriented HEENT: Atraumatic, normocephalic Eyes: Anicteric, normal conjunctiva, extraocular movements grossly intact Neck: Supple Respiratory: Increased work of breathing and diffuse wheezes and diffusely coarse Cardiovascular: Regular rate and rhythm GI: Soft, nontender, nondistended Extremities: No edema Musculoskeletal: Moving all extremities Neuro: No overt focal neurological deficits Skin: No rashes appreciated Psych: Cooperative Results Lab / Micro Data 11/06/23 15:37 11/06/23 15:37 Labs: Laboratory Results - last 24 hr 11/06/23 15:37: WBC 8.4, RBC 3.54 L, Hgb 8.8 L, Hct 28.6 L, MCV 80.8 L, MCH 24.9 L, MCHC 30.8 L, RDW Std Deviation 54.3 H, RDW Coeff of Renea 18.3 H, Plt Count 270, MPV 9.1, Immature Gran % (Auto) 0.600, Neut % (Auto) 78.3 H, Lymph % (Auto) 12.5 L, [place] % (Auto) 7.8, Eos % (Auto) 0.7, Baso % (Auto) 0.1, Absolute Neuts (auto) 6.6, Absolute Lymphs (auto) 1.05, Nucleated RBC % 0, Sodium 131 L, Potassium 4.7, Chloride 103, Carbon Dioxide 25.0, Anion Gap 3 L, BUN 12, Creatinine 0.92, Estim Creat Clear Calc 53.22, Est GFR (MDRD) Af Amer 78, Est GFR (MDRD) Non-Af 65, BUN/Creatinine Ratio 13.1, Glucose 101, Calcium 8.4 L, Troponin I High Sens 5, B-Natriuretic Peptide 55.5 Micro: Microbiology 11/06/23 15:40 Mucosa - Nose SARS-CoV-2, Influenza & RSV (PCR) - Final SARS-CoV-2 (COVID 19 PCR) Imaging Radiology Impression Chest X-Ray 11/06/23 16:29 IMPRESSION: No radiographic evidence of acute cardiopulmonary disease. Electronically Signed: Adolfo Ballard MD at 16:48 EST , Assessment & Plan Assessment/Plan (1) Hypoxemia: (2) Acute exacerbation of chronic obstructive pulmonary disease: (3) Anxiety: (4) COVID-19: (5) GERD (gastroesophageal reflux disease): (6) Nicotine dependence, cigarettes, uncomplicated: (7) PAOD (peripheral arterial occlusive disease): PLAN: Plan #Hypoxia 2/2 Acute exacerbation of chronic COPD 2/2 covid 19 -Patient only uses O2 as needed at home and is not on this continuously however here just moving to edge of bed off O2 patient was 86 to 87% and O2 was replaced -Patient additionally in respiratory distress and tachypneic -Found to be COVID-positive -Given her hypoxia and significant symptoms will start steroids -Unfortunately symptoms started 2 to 3 weeks ago so she is not a candidate for remdesivir -If patient does not improve can consider baricitinib which will necessitate ID consult as this is restricted, monitor respiratory status -Wean O2 as tolerated -Nebs -i/s #GERD -Continue PPI #Tobacco use -Advise cessation -Agreeable to patch # Chronic anemia -Appears to be at baseline -Continue to monitor # Anxiety -Continue home medications once #Hx PAD -Continue aspirin and plavix #HTN -Continue home medications #Chronic neuropathic pain -Continue home medications #DVT ppx: Lovenox subcu Mari Johnson MD Time spent in the patient's overall evaluation,decision-making process, review of diagnostic data, adjustment of management, discussion with other providers, nursing nursing and ancillary staff involved in patient's care documentation, 57 Minutes Charges/Coding Visit Charges Inpatient E&M: 29432 Init Hosp L2
[2023-11-06] MEDS: Gabapentin 600 MG Tablet PO (21:28)
[2023-11-06] MEDS: Pantoprazole Sodium 40 MG Tablet PO (21:29)
[2023-11-06] MEDS: guaiFENesin 1,200 MG Tablet 1200 MG PO (21:29)
[2023-11-06] MEDS: traMADol 50 MG Tablet PO (21:29)
[2023-11-06] MEDS: Carvedilol 12.5 MG Tablet PO (21:29)
[2023-11-06] MEDS: Atorvastatin Calcium 20 MG Tablet PO (21:29)
[2023-11-06 21:34] LABS: AST(SGOT) 14 U/L (15-37); Alanine Aminotransfer ALT/SGPT 22 U/L (13-56); Albumin, Serum 2.8 g/dL (3.2-5.0); Alkaline Phosphatase 78 U/L (45-117); Bilirubin, Direct 0.06 mg/dL (0.00-0.30); Globulin 3.7 g/dL (2.2-4.2); LDH 183 U/L (84-246); Protein, Total 6.5 g/dL (6.4-8.2)
[2023-11-06] MEDS: Acetaminophen 325 MG Tablet 650 MG PO (21:34)
[2023-11-06 21:35] LABS: D-Dimer Quantitative (DVT/PE) < 0.27 FEU/ug/m (0.27-0.49)
[2023-11-06 21:45] LABS: Lactic Acid 1.2 mmol/L (0.4-1.9)
[2023-11-06] MEDS: Ipratropium/Albuterol Sulfate 3 ML AMPUL.NEB INHALATION (22:46)
[2023-11-07] VITALS (9 sets, daily range): BP systolic 139–160; BP diastolic 62–86; PULSE 78–104; RESP 16–20; TEMP 36.6–37; O2SAT 92–98
[2023-11-07] MEDS: Albuterol 2.5 MG/3 ML VIAL.NEB. INHALATION (04:24)
[2023-11-07] MEDS: Ipratropium/Albuterol Sulfate 3 ML AMPUL.NEB INHALATION ×4 (07:31→21:09)
[2023-11-07] MEDS: Enoxaparin 40 MG/0.4 ML Syringe SC (07:55)
[2023-11-07] MEDS: Aspirin E.C. 81 MG Tablet PO (07:55)
[2023-11-07] MEDS: Clopidogrel Bisulfate 75 MG Tablet PO (08:06)
[2023-11-07] MEDS: Lisinopril 40 MG Tablet PO (08:06)
[2023-11-07] MEDS: traMADol 50 MG Tablet PO ×4 (08:06→21:18)
[2023-11-07] MEDS: Pantoprazole Sodium 40 MG Tablet PO ×2 (08:06→21:19)
[2023-11-07] MEDS: Gabapentin 600 MG Tablet PO ×4 (08:06→21:18)
[2023-11-07] MEDS: Spironolactone 25 MG Tablet PO (08:06)
[2023-11-07] MEDS: Carvedilol 12.5 MG Tablet PO ×2 (08:06→21:20)
[2023-11-07 08:57] LABS: Absolute Lymphocyte Count 0.46 X10^3/uL (0.83-4.51); Absolute Neutrophil Count 4.1 X10^3/uL (2.0-7.7); Hematocrit 28.4 % (37-47); Hemoglobin 8.6 g/dL (12.0-15.0); Lymphocyte # 0.46 X10^3/ul (0.83-4.51); Lymphocyte % 9.9 % (19-41); Mean Corp Hgb Conc 30.3 g/dL (32-36); Mean Corpuscular Hgb 24.7 pg (27.0-32.0); Mean Corpuscular Volume 81.6 fL (81-99); Mean Platelet Vol. 9.2 fl (6.2-12.0); Monocyte# 0.06 X10^3/uL; Monocyte% 1.3 % (0-10); NRBC Flagged by Analyzer 0 % (0-5); Neutrophil % 87.9 % (47-70); POSITIVE DIFFERENTIAL YES; Platelet Count 271 K/mm3 (150-450); RBC Distribution Width CV 18.2 % (11.6-14.6); RBC Distribution Width SD 54.3 fl (35.1-43.9); Red Blood Count 3.48 M/mm3 (4.2-5.4); White Blood Count 4.7 K/mm3 (4.4-11.0)
[2023-11-07] MEDS: guaiFENesin 1,200 MG Tablet 1200 MG PO ×2 (09:03→21:18)
[2023-11-07] MEDS: dexAMETHasone 10 MG/ML Vial 6 MG IV (09:03)
[2023-11-07 09:11] LABS: International Normalized Ratio 0.9; Prothrombin Time (Protime)PT. 12.5 SECONDS (11.7-14.9)
[2023-11-07 09:51] LABS: Anion Gap 8 (5-15); BUN 14 mg/dL (7-18); BUN/Creat Ratio 19.2 RATIO (10-20); Calcium,Total 9.1 mg/dL (8.5-10.1); Chloride 102 mmol/L (98-107); Creatinine, Serum 0.73 mg/dL (0.55-1.02); EST Glomerular Filtration Rate 84 mL/min (>60); Est Glom Filt Rate - Afr Amer 102 mL/min (>60); Estimated Creatinine Clearance 61.39 ml/min; Glucose 167 mg/dL (74-106); Sodium Level 132 mmol/L (136-145); Thyroid Stim Hormone (TSH) 0.31 uIU/mL (0.358-3.74)
--- NOTE | 2023-11-07 11:00 | CASEMGMT ---
RN YONI Face to Face with patient for initial transition planning/care coordination assessment. RN CM introduced self and role at [facility]. Patient lying in bed, alert and oriented. Patient willing to participate in assessment and is able to answer all questions appropriately. Care providers, pharmacy, and demographics verified. Patient wishes to discharge home, denies need for home health at this time. Patient states she has no further needs or concerns at this time. CM to follow for discharge planning needs that may arise. PCP: Isaac Specialists: Lizz Valdivia, splicing supervisor; John, vascular; [place], urologist; Preferred Pharmacy: [facility] Insurance: [facility] Dual, HUY Prescription Benefit: yes Living Will/HPOA: none LNOK: , daughter Living Arrangements: Patient lives with in a 2 story home with bed and bath on first floor, 2 steps to enter the home. Patient is independent at home. Transportation: self, DME/HHC: Patient has grab bar, pulse ox, and home oxygen at HS at 2lpm with portability. Will monitor for nebulizer at discharge, prefers [facility]. No previous HHC or SNF Disposition Plan: Patient to discharge home with family support and follow-up plans in place. Gris SPANN, RN, CM
[2023-11-07] MEDS: Acetaminophen 325 MG Tablet 650 MG PO (11:46)
[2023-11-07] MEDS: Ferrous Sulfate 325 MG Tablet PO (11:46)
--- NOTE | 2023-11-07 12:38 | PN.HOSP_ITS ---
Subjective Subjective Breathing little bit better, she is normally on oxygen only at night but currently on 3 L nasal cannula Objective Data Objective Data Vital Signs: Vital Signs Temp Pulse Resp BP Pulse Ox O2 Del Method O2 Flow Rate 98.6 F 88 20 H 160/62 H 92 Nasal Cannula 3 11/07/23 07:52 11/07/23 11:00 11/07/23 11:00 11/07/23 07:52 11/07/23 07:52 11/07/23 07:52 11/07/23 07:52 Oxygen Flow Rate (L/min) 3 Oxygen Delivery Method Nasal Cannula Weight: 168 lb Body Mass Index (BMI) 33.9 Lab / Micro Data 11/07/23 08:44 11/07/23 08:44 Labs: Laboratory Results - last 24 hr 11/06/23 15:37: WBC 8.4, RBC 3.54 L, Hgb 8.8 L, Hct 28.6 L, MCV 80.8 L, MCH 24.9 L, MCHC 30.8 L, RDW Std Deviation 54.3 H, RDW Coeff of Renea 18.3 H, Plt Count 270, MPV 9.1, Immature Gran % (Auto) 0.600, Neut % (Auto) 78.3 H, Lymph % (Auto) 12.5 L, [place] % (Auto) 7.8, Eos % (Auto) 0.7, Baso % (Auto) 0.1, Absolute Neuts (auto) 6.6, Absolute Lymphs (auto) 1.05, Nucleated RBC % 0, Sodium 131 L, Potassium 4.7, Chloride 103, Carbon Dioxide 25.0, Anion Gap 3 L, BUN 12, Creatinine 0.92, Estim Creat Clear Calc 53.22, Est GFR (MDRD) Af Amer 78, Est GFR (MDRD) Non-Af 65, BUN/Creatinine Ratio 13.1, Glucose 101, Calcium 8.4 L, Troponin I High Sens 5, B-Natriuretic Peptide 55.5 11/06/23 21:03: D-Dimer Quant (PE/DVT) < 0.27 L, Lactic Acid 1.2, Total Bilirubin 0.10 L, Direct Bilirubin 0.06, AST 14 L, ALT 22, Alkaline Phosphatase 78, Lactate Dehydrogenase 183, C-React Prot Ext Range 134.00 H, Total Protein 6.5, Albumin 2.8 L, Globulin 3.7 11/07/23 08:44: WBC 4.7, RBC 3.48 L, Hgb 8.6 L, Hct 28.4 L, MCV 81.6, MCH 24.7 L , MCHC 30.3 L, RDW Std Deviation 54.3 H, RDW Coeff of Renea 18.2 H, Plt Count 271, MPV 9.2, Immature Gran % (Auto) 0.900, Neut % (Auto) 87.9 H, Lymph % (Auto) 9.9 L, [place] % (Auto) 1.3, Eos % (Auto) 0.0, Baso % (Auto) 0.0, Absolute Neuts (auto) 4.1, Absolute Lymphs (auto) 0.46 L, Nucleated RBC % 0, PT 12.5, INR 0.9, Sodium 132 L, Potassium 4.0, Chloride 102, Carbon Dioxide 22.0, Anion Gap 8, BUN 14, Creatinine 0.73, Estim Creat Clear Calc 61.39, Est GFR (MDRD) Af Amer 102, Est GFR (MDRD) Non-Af 84, BUN/Creatinine Ratio 19.2, Glucose 167 H, Calcium 9.1, TSH 0.31 L Micro: Microbiology 11/06/23 15:40 Mucosa - Nose SARS-CoV-2, Influenza & RSV (PCR) - Final SARS-CoV-2 (COVID 19 PCR) Radiography Diagnostic Testing: Radiology Impression Chest X-Ray 11/06/23 16:29 IMPRESSION: No radiographic evidence of acute cardiopulmonary disease. Electronically Signed: Adolfo Ballard MD at 16:48 EST , Physical Exam Narrative General: Alert, Oriented x3, Cooperative, No apparent distress HEENT: Atraumatic, PERRLA, EOMI, Normocephalic Oral: Moist Mucosa Neck: Supple, No JVD Lungs: Diminished, Normal air movement, rhonchi, wheeze, No rales Cardiovascular: Regular rate, Regular Rhythm, Normal S1, Normal S2, No murmurs Abdomen: Soft, Non Tender, Non-Distended, No Hepato-splenomegaly Extremities: No edema, Capillary Refill Less than 3 Seconds Skin: No rashes, No breakdown Musculoskeletal: No Tenderness to Palpation of Joints or Extremities Neurological: No focal neurological deficits, Motor Exam 5/5 strength throughout, Sensory exam intact to light touch and pain Psych/Mental Status: Normal Affect, Appropriate Assessment & Plan Assessment/Plan (1) Hypoxemia: (2) Acute exacerbation of chronic obstructive pulmonary disease: (3) Anxiety: (4) COVID-19: (5) GERD (gastroesophageal reflux disease): (6) Nicotine dependence, cigarettes, uncomplicated: (7) PAOD (peripheral arterial occlusive disease): PLAN: Plan 1. Acute hypoxia secondary to COPD exacerbation likely precipitated by COVID-19 ? Symptoms start about 2 to 3 weeks ago therefore we will take out of precautions ? Given her hypoxia we will continue with her Decadron however she is outside the window for treatment of remdesivir ? Continue with inhalers ? Will need an ambulatory pulse ox prior to discharge 2. HTN/HLD/PAD ? Continue with her home blood pressure medications ? Continue with her cholesterol medications ? We will monitor make adjustments as necessary ? Continue with aspirin and Plavix for her peripheral artery disease 3. Chronic iron deficiency anemia ? Hemoglobin appears to be at her baseline ? Continue with her iron supplementation 4. GERD ? Stable ? Continue with PPI Anxiety/depression ? Stable ? Continue with her home medications DVT: Lovenox Charges/Coding Visit Charges Inpatient E&M: 28279 Subs Hosp L2
[2023-11-07] MEDS: ALPRAZolam 0.5 MG Tablet PO (18:43)
[2023-11-07] MEDS: Atorvastatin Calcium 20 MG Tablet PO (21:19)
[2023-11-08] VITALS (10 sets, daily range): BP systolic 95–135; BP diastolic 61–78; PULSE 72–100; RESP 16–22; TEMP 35.9–37.1; O2SAT 86–97
[2023-11-08] MEDS: ALPRAZolam 0.5 MG Tablet PO ×2 (06:15→20:00)
[2023-11-08] MEDS: Ipratropium/Albuterol Sulfate 3 ML AMPUL.NEB INHALATION ×4 (07:08→19:04)
[2023-11-08 07:40] LABS: Absolute Neutrophil Count 9.9 X10^3/uL (2.0-7.7); Basophil# 0.02 X10^3/uL; Basophil% 0.2 % (0-1); Hematocrit 28.5 % (37-47); Hemoglobin 8.6 g/dL (12.0-15.0); Lymphocyte % 8.5 % (19-41); Mean Corp Hgb Conc 30.2 g/dL (32-36); Mean Corpuscular Hgb 24.2 pg (27.0-32.0); Mean Corpuscular Volume 80.1 fL (81-99); Mean Platelet Vol. 9.4 fl (6.2-12.0); Monocyte# 0.77 X10^3/uL; Monocyte% 6.5 % (0-10); NRBC Flagged by Analyzer 0 % (0-5); Neutrophil # 9.92 X10^3/uL (2.7-7.7); Neutrophil % 84.2 % (47-70); Platelet Count 308 K/mm3 (150-450); RBC Distribution Width CV 18.2 % (11.6-14.6); RBC Distribution Width SD 52.9 fl (35.1-43.9); Red Blood Count 3.56 M/mm3 (4.2-5.4); White Blood Count 11.8 K/mm3 (4.4-11.0)
[2023-11-08 08:10] LABS: Anion Gap 4 (5-15); BUN 16 mg/dL (7-18); BUN/Creat Ratio 18.4 RATIO (10-20); Calcium,Total 8.9 mg/dL (8.5-10.1); Chloride 103 mmol/L (98-107); Creatinine, Serum 0.87 mg/dL (0.55-1.02); EST Glomerular Filtration Rate 69 mL/min (>60); Est Glom Filt Rate - Afr Amer 83 mL/min (>60); Estimated Creatinine Clearance 56.45 ml/min; Glucose 122 mg/dL (74-106); Potassium 4.6 mmol/L (3.5-5.1); Sodium Level 132 mmol/L (136-145)
[2023-11-08] MEDS: Clopidogrel Bisulfate 75 MG Tablet PO (08:21)
[2023-11-08] MEDS: Aspirin E.C. 81 MG Tablet PO (08:21)
[2023-11-08] MEDS: traMADol 50 MG Tablet PO ×4 (08:21→21:25)
[2023-11-08] MEDS: Carvedilol 12.5 MG Tablet PO ×2 (08:21→21:27)
[2023-11-08] MEDS: Lisinopril 40 MG Tablet PO (08:21)
[2023-11-08] MEDS: Pantoprazole Sodium 40 MG Tablet PO ×2 (08:21→21:23)
[2023-11-08] MEDS: Gabapentin 600 MG Tablet PO ×4 (08:21→21:23)
[2023-11-08] MEDS: Enoxaparin 40 MG/0.4 ML Syringe SC (08:22)
[2023-11-08] MEDS: Spironolactone 25 MG Tablet PO (08:22)
[2023-11-08] MEDS: dexAMETHasone 10 MG/ML Vial 6 MG IV (08:22)
[2023-11-08] MEDS: guaiFENesin 1,200 MG Tablet 1200 MG PO ×2 (08:22→21:23)
[2023-11-08] MEDS: Ferrous Sulfate 325 MG Tablet PO (08:22)
--- NOTE | 2023-11-08 10:09 | PN.HOSP_ITS ---
Subjective Subjective Anxious about going home however she needed 3 L with ambulation but was 96% on room air Objective Data Objective Data Vital Signs: Vital Signs Temp Pulse Resp BP Pulse Ox O2 Del Method O2 Flow Rate 98.8 F 84 16 135/69 H 94 Room Air 0 11/08/23 08:17 11/08/23 08:17 11/08/23 08:17 11/08/23 08:17 11/08/23 08:17 11/08/23 08:17 11/08/23 08:02 Oxygen Flow Rate (L/min) [ 3 AMBULATING with Oxygen #1] Oxygen Flow Rate (L/min) [ 0 AMBULATING on Room Air] Oxygen Flow Rate (L/min) [At 0 REST on Room Air] Oxygen Flow Rate (L/min) 3 Oxygen Delivery Method Room Air Weight: 167 lb 15.876 oz Body Mass Index (BMI) 33.9 Intake & Output: Intake and Output for Last 24 Hours 11/07/23 11/08/23 11/09/23 03:59 03:59 03:59 Intake Total 400 / 400 Balance 400 / 400 Lab / Micro Data 11/08/23 07:15 11/08/23 07:15 Labs: Laboratory Results - last 24 hr 11/08/23 07:15: WBC 11.8 H, RBC 3.56 L, Hgb 8.6 L, Hct 28.5 L, MCV 80.1 L, MCH 24.2 L, MCHC 30.2 L, RDW Std Deviation 52.9 H, RDW Coeff of Renea 18.2 H, Plt Count 308, MPV 9.4, Immature Gran % (Auto) 0.600, Neut % (Auto) 84.2 H, Lymph % (Auto) 8.5 L, [place] % (Auto) 6.5, Eos % (Auto) 0.0, Baso % (Auto) 0.2, Absolute Neuts (auto) 9.9 H, Absolute Lymphs (auto) 1.00, Nucleated RBC % 0, Sodium 132 L , Potassium 4.6, Chloride 103, Carbon Dioxide 25.0, Anion Gap 4 L, BUN 16, Creatinine 0.87, Estim Creat Clear Calc 56.45, Est GFR (MDRD) Af Amer 83, Est GFR (MDRD) Non-Af 69, BUN/Creatinine Ratio 18.4, Glucose 122 H, Calcium 8.9 Micro: Microbiology 11/06/23 15:40 Mucosa - Nose SARS-CoV-2, Influenza & RSV (PCR) - Final SARS-CoV-2 (COVID 19 PCR) Physical Exam Narrative General: Alert, Oriented x3, Cooperative, No apparent distress HEENT: Atraumatic, PERRLA, EOMI, Normocephalic Oral: Moist Mucosa Neck: Supple, No JVD Lungs: Diminished, Normal air movement, rhonchi, wheeze, No rales Cardiovascular: Regular rate, Regular Rhythm, Normal S1, Normal S2, No murmurs Abdomen: Soft, Non Tender, Non-Distended, No Hepato-splenomegaly Extremities: No edema, Capillary Refill Less than 3 Seconds Skin: No rashes, No breakdown Musculoskeletal: No Tenderness to Palpation of Joints or Extremities Neurological: No focal neurological deficits, Motor Exam 5/5 strength throughout, Sensory exam intact to light touch and pain Psych/Mental Status: Normal Affect, Appropriate Assessment & Plan Assessment/Plan (1) Hypoxemia: (2) Acute exacerbation of chronic obstructive pulmonary disease: (3) Anxiety: (4) COVID-19: (5) GERD (gastroesophageal reflux disease): (6) Nicotine dependence, cigarettes, uncomplicated: (7) PAOD (peripheral arterial occlusive disease): PLAN: Plan 1. Acute hypoxia secondary to COPD exacerbation likely precipitated by COVID-19 ? Symptoms start about 2 to 3 weeks ago therefore we will take out of precautions ? Given her hypoxia we will continue with her Decadron however she is outside the window for treatment of remdesivir ? Continue with inhalers ? Given the results of her ambulatory pulse ox and the fact that she is currently on room air, will discuss with her the possibility for discharge today 2. HTN/HLD/PAD ? Continue with her home blood pressure medications ? Continue with her cholesterol medications ? We will monitor make adjustments as necessary ? Continue with aspirin and Plavix for her peripheral artery disease 3. Chronic iron deficiency anemia ? Hemoglobin appears to be at her baseline ? Continue with her iron supplementation 4. GERD ? Stable ? Continue with PPI Anxiety/depression ? Stable ? Continue with her home medications DVT: Lovenox Charges/Coding Visit Charges Inpatient E&M: 10689 Subs Hosp L2
[2023-11-08] MEDS: Acetaminophen 325 MG Tablet 650 MG PO (20:00)
[2023-11-08] MEDS: Atorvastatin Calcium 20 MG Tablet PO (21:23)
[2023-11-09] VITALS (7 sets, daily range): BP systolic 124–151; BP diastolic 71–80; PULSE 73–84; RESP 17–20; TEMP 36–37; O2SAT 88–100
[2023-11-09] MEDS: BENZOCAINE/MENTHOL 1 LOZENGE MUCOUS MEM (03:32)
[2023-11-09] MEDS: Ipratropium/Albuterol Sulfate 3 ML AMPUL.NEB INHALATION ×3 (03:51→11:08)
[2023-11-09] MEDS: ALPRAZolam 0.5 MG Tablet PO (07:45)
[2023-11-09] MEDS: Acetaminophen 325 MG Tablet 650 MG PO (07:46)
[2023-11-09] MEDS: Clopidogrel Bisulfate 75 MG Tablet PO (09:35)
[2023-11-09] MEDS: Ferrous Sulfate 325 MG Tablet PO (09:35)
[2023-11-09] MEDS: Spironolactone 25 MG Tablet PO (09:35)
[2023-11-09] MEDS: Lisinopril 40 MG Tablet PO (09:35)
[2023-11-09] MEDS: Pantoprazole Sodium 40 MG Tablet PO (09:36)
[2023-11-09] MEDS: guaiFENesin 1,200 MG Tablet 1200 MG PO (09:36)
[2023-11-09] MEDS: Aspirin E.C. 81 MG Tablet PO (09:36)
[2023-11-09] MEDS: traMADol 50 MG Tablet PO (09:36)
[2023-11-09] MEDS: Carvedilol 12.5 MG Tablet PO (09:36)
[2023-11-09] MEDS: Gabapentin 600 MG Tablet PO (09:36)
[2023-11-09] MEDS: Enoxaparin 40 MG/0.4 ML Syringe SC (09:38)
[2023-11-09] MEDS: dexAMETHasone 10 MG/ML Vial 6 MG IV (09:38)
[2023-11-09] MEDS: 0.9% Saline Lock 10 ML Syringe IV (09:38)
--- NOTE | 2023-11-09 11:04 | DCINST_ITS ---
Discharge Instructions Diet Discharge Diet: Low fat / Low cholesterol Activity Discharge Activity: Return to Normal Activity Dressing / Incision Call your doctor if you observe: Fever of 101 or Higher, Shortness of breath, Dizziness, Fainting spells, Swelling in the ankles, Chest pain and Increased palpitations (irregular heartbeat) Follow Up Care Test Results: Test results from this visit will be discussed in further detail at your follow- up appointment, if applicable. Discharge Plan Admission Admit Date/Time: 11/06/23 17:18 Attending Provider: Mook Rodriguez Primary Care Provider: Nate Gray Consulting Providers: Mari Johnson Instructions Additional Instructions / Restrictions: Follow-up with your PCP to monitor your respiratory status on discharge secondary to your COVID and COPD. I also recommend outpatient follow-up for your anemia and monitoring her iron levels. Discharge Orders/Prescriptions Prescriptions: New dexamethasone 2 mg tablet 6 mg PO DAILY 7 Days Qty: 21 0RF Continued carvedilol 25 MG tablet 25 mg PO BID spironolactone 25 MG tablet 25 mg PO DAILY alprazolam 0.5 mg tablet 0.5 mg PO TID PRN (Reason: ANXIETY) psyllium Packet 1 packet PO DAILY PRN (Reason: CONSTPATION ) clopidogrel 75 mg tablet 75 mg PO DAILY acetaminophen 500 mg Tablet 1,000 mg PO Q6H PRN (Reason: PAIN ) pantoprazole 40 mg Tablet,Delayed Release (Dr/Ec) 40 mg PO BID 30 Days Qty: 60 0RF lisinopril 40 mg tablet 40 mg PO DAILY aspirin 81 mg Tablet,Delayed Release (Dr/Ec) 81 mg PO BREAKFAST Qty: 0 0RF ferrous sulfate 325 mg (65 mg iron) tablet 325 mg PO DAILY Qty: 30 0RF guaifenesin [Mucinex] 1,200 mg tablet extended release 12hr 1,200 mg PO BID PRN (Reason: MUCOUS) atorvastatin 20 mg tablet 20 mg PO QHS gabapentin 600 mg tablet 600 mg PO 4X/DAY tramadol 50 mg tablet 50 mg PO 4X/DAY docusate sodium 100 mg Capsule 100 mg PO BID PRN (Reason: CONSTIPATION ) Trelegy Ellipta 200-62.5-25 mcg blister with device 1 inh inhalation DAILY Qty: 60 11RF Referrals / Follow Up: Nate Gray MD [Primary Care Provider] - Within 1 Week Disposition Disposition (needs filled in before D/C Order can be placed): Home, Self Care
--- NOTE | 2023-11-09 11:32 | DS.PCM_ITS ---
Providers Date of Admission: 11/06/23 Primary Care Physician: Dr. Nate Gray MD Reason For Visit: HYPOXIA 2/2 COVID Diagnosis Discharge Diagnosis (1) Hypoxemia: Status: Acute Code(s): R09.02 - Hypoxemia (2) Acute exacerbation of chronic obstructive pulmonary disease: Status: Chronic Code(s): J44.1 - Chronic obstructive pulmonary disease with (acute) exacerbation (3) Anxiety: Status: Chronic Code(s): F41.9 - Anxiety disorder, unspecified (4) COVID-19: Status: Acute Code(s): U07.1 - COVID-19 (5) GERD (gastroesophageal reflux disease): Status: Chronic Code(s): K21.9 - Gastro-esophageal reflux disease without esophagitis (6) Nicotine dependence, cigarettes, uncomplicated: Status: Acute Code(s): F17.210 - Nicotine dependence, cigarettes, uncomplicated (7) PAOD (peripheral arterial occlusive disease): Status: Chronic Code(s): I77.9 - Disorder of arteries and arterioles, unspecified Medications at Discharge Home Medications carvedilol 25 mg tablet 25 mg PO BID HEART 05/28/19 spironolactone 25 mg tablet 25 mg PO DAILY BLOOD PRESSURE 05/28/19 alprazolam 0.5 mg tablet 0.5 mg PO TID PRN ANXIETY 02/12/21 psyllium 1 packet PO DAILY PRN CONSTPATION 02/12/21 clopidogrel 75 mg tablet 75 mg PO DAILY BLOOD THINNER 07/14/22 acetaminophen 500 mg tablet 1,000 mg PO Q6H PRN PAIN 07/19/22 pantoprazole 40 mg tablet,delayed release 40 mg PO BID GERD 30 days #60 tabs 10/12/22 fluticasone fur. 200 mcg-umeclid 62.5 mcg-vilant 25 mcg inhalat.powder (Trelegy Ellipta) 1 inh inhalation DAILY ASTHMA #60 ea 06/25/23 guaifenesin 1,200 mg tablet, extended release 12 hr (Mucinex) 1,200 mg PO BID AK N MUCOUS 07/02/23 lisinopril 40 mg tablet 40 mg PO DAILY BLOOD PRESSURE 07/14/23 aspirin 81 mg tablet,delayed release 81 mg PO BREAKFAST Stage I Diagnostics #0 tabs 07/19/23 ferrous sulfate 325 mg (65 mg iron) tablet 325 mg PO DAILY SUPPLEMENT #30 tabs 07/19/23 atorvastatin 20 mg tablet 20 mg PO QHS CHOLESTEROL 11/06/23 docusate sodium 100 mg capsule 100 mg PO BID PRN CONSTIPATION 11/06/23 gabapentin 600 mg tablet 600 mg PO 4X/DAY NERVE PAIN 11/06/23 tramadol 50 mg tablet 50 mg PO 4X/DAY PAIN 11/06/23 dexamethasone 2 mg tablet 6 mg (3 x 2 mg) PO DAILY 7 days #21 tabs 11/09/23 Hospital Course Operations None Procedures None Summary of Care Provided Minutes Spent on Discharge: 37 Hospital Course: Per HPI: BAHMAN MICHELE, is a 68 y/o F with history of GERD, COPD, tobacco use, anxiety who presented to [facility] 11/06/2023 for increasing shortness of breath and worsening wheezing over the past several weeks. She was tried on prednisone as an outpatient and antibiotics with no relief. Today she acutely worsened and presented to the ED in the ED chest x-ray unremarkable and BNP within normal limits however patient tachypneic with respiratory rates up to high 20s when she is found to be COVID-positive. When O2 was taken off and she was moved to the side of the bed she dropped to 86/87% on room air and her O2 was replaced and hospitalist contacted for admission. Patient evaluated at bedside with daughter, reportedly has been sick for about 2-1/2 to 3 weeks and has progressively worsened and today she is feeling weak and lightheaded and short of breath and checked her oxygen and she was 84%, she put on O2 and called her daughter and presented to the emergency department. Has been coughing without significant sputum production, no fevers or chills, did have diarrhea but that has improved. Has some chronic problems with neuropathy in her lower extremities but no other acute complaints at this time. Hospital Course: 1. Acute on chronic hypoxia secondary to COPD exacerbation precipitated by COVID-19?BAHMAN MICHELE, is a 68 y/o F with history of GERD, COPD, tobacco use, anxiety who presented to [facility] 11/06/2023 for increasing shortness of breath and worsening wheezing over the past several weeks. She was tried on prednisone as an outpatient and antibiotics with no relief. Today she acutely worsened and presented to the ED in the ED chest x-ray unremarkable and BNP within normal limits however patient tachypneic with respiratory rates up to high 20s when she is found to be COVID-positive. When O2 was taken off and she was moved to the side of the bed she dropped to 86/87% on room air and her O2 was replaced and hospitalist contacted for admission. Patient evaluated at bedside with daughter, reportedly has been sick for about 2-1/2 to 3 weeks and has progressively worsened and today she is feeling weak and lightheaded and short of breath and checked her oxygen and she was 84%, she put on O2 and called her daughter and presented to the emergency department. Has been coughing without significant sputum production, no fevers or chills, did have diarrhea but that has improved. Has some chronic problems with neuropathy in her lower extremities but no other acute complaints at this time. 2. Hypertension, hyperlipidemia, peripheral vascular disease, chronic iron deficiency anemia, GERD, anxiety, depression all chronic medical conditions which complicate her care. Her home medications were continued where appropriate Physical Exam Narrative General: Alert, Oriented x3, Cooperative, No apparent distress HEENT: Atraumatic, PERRLA, EOMI, Normocephalic Oral: Moist Mucosa Neck: Supple, No JVD Lungs: Diminished, Normal air movement, no rhonchi, scattered wheeze, No rales Cardiovascular: Regular rate, Regular Rhythm, Normal S1, Normal S2, No murmurs Abdomen: Soft, Non Tender, Non-Distended, No Hepato-splenomegaly Extremities: No edema, Capillary Refill Less than 3 Seconds Skin: No rashes, No breakdown Musculoskeletal: No Tenderness to Palpation of Joints or Extremities Neurological: No focal neurological deficits, Motor Exam 5/5 strength throughout, Sensory exam intact to light touch and pain Psych/Mental Status: Normal Affect, Appropriate Weight / BMI Weight Weight: 167 lb 15.876 oz Body Mass Index (BMI) 33.9 ABG / Lab / Microbiology Data 11/08/23 07:15 11/08/23 07:15 Microbiology: Microbiology 11/06/23 15:40 Mucosa - Nose SARS-CoV-2, Influenza & RSV (PCR) - Final SARS-CoV-2 (COVID 19 PCR) D/C Instructions Discharge Diet: Low fat / Low cholesterol Call your doctor if you observe: Fever of 101 or Higher, Shortness of breath, Dizziness, Fainting spells, Swelling in the ankles, Chest pain and Increased palpitations (irregular heartbeat) Meaningful Use Info Meaningful Use Diagnoses (Choose all that apply): None applicable Discharge Plan Admission Admit Date/Time: 11/06/23 17:18 Attending Provider: Mook Rodriguez Primary Care Provider: Nate Gray Consulting Providers: Mari Johnson Instructions Additional Instructions / Restrictions: Follow-up with your PCP to monitor your respiratory status on discharge secondary to your COVID and COPD. I also recommend outpatient follow-up for your anemia and monitoring her iron levels. Discharge Orders/Prescriptions Prescriptions: New dexamethasone 2 mg tablet 6 mg PO DAILY 7 Days Qty: 21 0RF Continued carvedilol 25 MG tablet 25 mg PO BID spironolactone 25 MG tablet 25 mg PO DAILY alprazolam 0.5 mg tablet 0.5 mg PO TID PRN (Reason: ANXIETY) psyllium Packet 1 packet PO DAILY PRN (Reason: CONSTPATION ) clopidogrel 75 mg tablet 75 mg PO DAILY acetaminophen 500 mg Tablet 1,000 mg PO Q6H PRN (Reason: PAIN ) pantoprazole 40 mg Tablet,Delayed Release (Dr/Ec) 40 mg PO BID 30 Days Qty: 60 0RF lisinopril 40 mg tablet 40 mg PO DAILY aspirin 81 mg Tablet,Delayed Release (Dr/Ec) 81 mg PO BREAKFAST Qty: 0 0RF ferrous sulfate 325 mg (65 mg iron) tablet 325 mg PO DAILY Qty: 30 0RF guaifenesin [Mucinex] 1,200 mg tablet extended release 12hr 1,200 mg PO BID PRN (Reason: MUCOUS) atorvastatin 20 mg tablet 20 mg PO QHS gabapentin 600 mg tablet 600 mg PO 4X/DAY tramadol 50 mg tablet 50 mg PO 4X/DAY docusate sodium 100 mg Capsule 100 mg PO BID PRN (Reason: CONSTIPATION ) Trelegy Ellipta 200-62.5-25 mcg blister with device 1 inh inhalation DAILY Qty: 60 11RF Referrals / Follow Up: Nate Gray MD [Primary Care Provider] - Within 1 Week Disposition Disposition (needs filled in before D/C Order can be placed): Home, Self Care Charges/Coding Visit Charges Inpatient E&M: 79423 Disch Hosp >30min
--- NOTE | 2023-11-09 13:07 | CASEMGMT ---
Patient has order for discharge. Patient will need increase in home oxygen to 2lpm continuously. Script received and sent to [facility] [place] via [employer]. RN CM in to update patient. Patient states she has tank from home. Patient denies needs or help at discharge. Patient had no further questions or concerns.
== END 2023-11-09 13:10 | disposition home or self-care (01) | DRG 178 ==
LOC: ED 17:09 → PCU 17:32
PROVIDERS: Nurse Practitioner; Admitting Provider Internal Medicine; Emergency Provider Emergency Medicine; PCP Internal Medicine; Visit Provider Family Medicine
DX: U07.1 COVID-19 (principal); J44.1 Chronic obstructive pulmonary disease with (acute) exacerbation; D50.9 Iron deficiency anemia, unspecified; E78.00 Pure hypercholesterolemia, unspecified; F17.210 Nicotine dependence, cigarettes, uncomplicated; Z99.81 Dependence on supplemental oxygen; I73.9 Peripheral vascular disease, unspecified; I10 Essential (primary) hypertension; F32.A Depression, unspecified; F41.9 Anxiety disorder, unspecified; K21.9 Gastro-esophageal reflux disease without esophagitis; G62.9 Polyneuropathy, unspecified; M19.90 Unspecified osteoarthritis, unspecified site; G89.29 Other chronic pain; Z79.82 Long term (current) use of aspirin; Z79.899 Other long term (current) drug therapy; Z79.51 Long term (current) use of inhaled steroids; Z79.02 Long term (current) use of antithrombotics/antiplatelets
CPT/HCPCS: 36415; 71046; 80048; 80076; 83605; 83615; 83880; 84443; 84484; 85025; 85379; 85610; 86140; 87631; 93005; 94640; 94668; 94760; 97802; 99252; 99284; 99406; A4216; G0463

== ENCOUNTER → 2023-12-25 | Outpatient (CLI) | payer MEDICARE, SELFPAY ==
--- NOTE | 2023-12-25 13:21 | ART_ITS ---
Reason For Study: s/p R femoral endart and R LY stent Procedure A bilateral lower extremity continuous wave Doppler with analog waveform analysis and ankle brachial indexes. Prelim to Dr. Lopez's office. Left Segmental Pressures Left brachial= 131mmHg. Left posterior tibial artery = 50mmHg. Left dorsalis pedis artery = 39mmHg. The left dorsalis pedis waveforms are monophasic. The left posterior tibial artery waveforms are monophasic. Unable to obtain flow in the L great toe. Right Segmental Pressures Right brachial= 131mmHg. Right posterior tibial artery = 91mmHg. Right dorsalis pedis artery = 85mmHg. The right dorsalis pedis waveforms are monophasic. The right posterior tibial artery waveforms are biphasic. Right digit = 63 mmHg. VL/Ankle Brachial Index Interpretation Summary Right SHAKIR 0.69, moderate arterial insufficiency. Doppler/PVR waveforms of the r ight ankle moderately diminished at rest. Left SHAKIR 0.38, severe arterial insufficiency. Doppler/PVR waveforms of the left ankle severely diminished at rest. Ordering Physician: Ella Rosales Performed By: Castro Leonard, RVT
--- NOTE | 2023-12-25 13:21 | ADUL_ITS ---
Reason For Study: s/p R fem endart and rt LY stent Right Velocities Ext. Iliac Artery, dist = 190.7 cm./sec. Common Femoral Artery, mid = 162.6 cm./sec. Prox SFA is occluded. Branch feeding mid/dist SFA. Supf Femoral Artery, mid = 50.2 cm./sec. Supf Femoral Artery, dist. = 35.5 cm./sec. Profunda Femoral Artery = 207.5 cm./sec. Popliteal Artery, mid = 30.6 cm./sec. Post. Tibial Artery, prox = 36.7 cm./sec. Post. Tibial Artery, mid = 31.8 cm./sec. Post. Tibial Artery, dist = 35.5 cm./sec. Peroneal Artery, mid = 18.3 cm./sec. Peroneal Artery,dist = 15.8 cm./sec. Ant. Tibial Artery, prox = 25.7 cm./sec. Ant. Tibial Artery, mid = 20.8 cm./sec. Ant. Tibial Artery, dist = 31.8 cm./sec. Procedure The exam was diagnostic. Exam performed in department. VL/US Art Duplex Unilat Lower Ext Interpretation Summary Right common femoral and profunda arteries patent with normal velocities. Super ficial femoral artery occlusion with popliteal reconstitution Ordering Physician: Ella Rosales Referring Physician: Ella Rosales Performed By: Castro Leonard RVT
== END | disposition home or self-care (01) ==
LOC: CVS 13:19
PROVIDERS: PCP Internal Medicine; Referring Provider Physician Assistant; Visit Provider Physician Assistant
DX: I70.221 Atherosclerosis of native arteries of extremities with rest pain, right leg (principal); Z48.812 Encounter for surgical aftercare following surgery on the circulatory system
CPT/HCPCS: 93922; 93926

== ENCOUNTER → 2024-01-17 | Outpatient (CLI) | payer MEDICARE, SELFPAY ==
--- NOTE | 2024-01-17 10:06 | VDLE_ITS ---
Reason For Study: Preoperative planning RIGHT LEFT GSV prox thigh, 0.29 x 0.31 cm. GSV prox thigh, 0.39 x 0.42 cm. GSV mid thigh, 0.29 x 0.29 cm. GSV mid thigh, 0.40 x 0.41 cm. GSV distal thigh, 0.30 x 0.30 cm. GSV distal thigh, 0.34 x 0.35 cm. GSV knee, 0.25 x 0.26 cm. GSV knee, 0.30 x 0.34 cm. GSV prox calf, 0.30 x 0.29 cm. GSV prox calf, 0.23 x 0.25 cm. GSV mid calf, 0.20 x 0.20 cm. GSV mid calf, 0.22 x 0.22 cm. GSV distal calf, 0.23 x 0.29 cm. GSV distal calf, 0.26 x 0.32 cm. SSV prox, 0.21 x 0.23 cm. SSV prox, 0.20 x 0.20 cm. SSV mid, 0.27 x 0.32 cm. SSV mid, 0.34 x 0.36 cm. SSV distal, 0.18 x 0.21 cm. SSV distal, 0.21 x 0.20 cm. GSV and SSV are compressible. GSV and SSV are compressible. Procedure This is a venous duplex using B-mode, color flow and spectral Doppler. Exam performed in department. VL/Saphenous Vein Mapping, Bilat Interpretation Summary Right great saphenous vein patent with measurements above. Left great saphenous vein patent with measurements above. Right small saphenous vein patent with measurements above. Left small saphenous vein patent with measurements above. Ordering Physician: Ella Rosales Referring Physician: Nate Gray M.D. Performed By: Gris Jung RVT
== END | disposition home or self-care (01) ==
LOC: CVS 10:02
PROVIDERS: PCP Internal Medicine; Referring Provider Physician Assistant; Visit Provider Physician Assistant
DX: M79.605 Pain in left leg (principal); I70.223 Atherosclerosis of native arteries of extremities with rest pain, bilateral legs
CPT/HCPCS: 93970

== ENCOUNTER → 2024-01-18 | Outpatient (CLI) | payer MEDICARE, SELFPAY ==
--- NOTE | 2024-01-18 11:37 | CT_ITS ---
EXAM: CT CHEST, LUNG CANCER SCREENING WITHOUT INTRAVENOUS CONTRAST CLINICAL INDICATION: smoker TECHNIQUE: Helically acquired images were obtained of the chest without intravenous contrast using low dose (LDCT) lung cancer screening protocol. This CT exam was performed using one or more of the following dose reduction techniques: automated exposure control, adjustment of the mA and/or kV according to patient size, and/or use of iterative reconstruction technique. COMPARISON: 01/16/2023 FINDINGS: LUNGS AND PLEURAL SPACES: There is minimal linear scarring in the lung bases. There is a questionable nodular density at the left base that measures 4 mm seen on series 2 image 153. This may represent an area of scar formation. Is a noncalcified nodule left apex that measures 5 x 5 mm seen on series 2 image 55. There is minimal atelectasis in the right middle lobe. No pleural effusion or thickening. No pneumothorax. HEART: There is mild coronary artery calcifications present. Heart size is normal. No pericardial effusion. MEDIASTINUM: Unremarkable. No mediastinal or hilar adenopathy. Esophagus is unremarkable. No hiatal hernia. THYROID: Unremarkable. No thyroid lesions. BONES/JOINTS: Unremarkable. No suspicious lytic or blastic abnormality. VASCULATURE: See above. LYMPH NODES: Unremarkable. No enlarged lymph nodes. CT/Low Dose CT Lung Screening IMPRESSION: 5 mm nodule in the left apex. There is also a questionable nodule versus scar in the left lung base. Lung-RADS score: 3 - Probably Benign. Recommend low-dose CT (LDCT) in 6 months. Electronically Signed: Adolfo Ballard MD at 20:07 EDT ,
--- NOTE | 2024-01-18 11:37 | CT_ITS ---
INDICATION: claudication/rest pain, hx revascularization EXAMINATION: CTA OF THE ABDOMEN AND PELVIS WITH IV CONTRAST CTA Abdominal Aorta and Bilateral Iliofemoral LE Runoff W/ Contrast Injection (and W/O Contrast images if performed) TECHNIQUE: Helically acquired images were obtained of the abdomen and pelvis following IV contrast. A dose lowering technique was used using automated exposure control, adjustment of mA and/or kV according to the patient''s size and the use of iterative reconstruction technique Postcontrast imaging, planar and 3-dimensional reconstructions obtained. IV Contrast dosage and agent: 100 mL Isovue 370 Oral contrast: None. Radiation Dose (provided by facility) CTDIvol (6.95 ) mGy, DLP ( 1001 or 64.06) mGy-cm COMPARISON: : No relevant prior comparison study available FINDINGS: CTA ANGIOGRAM: ABDOMINAL AORTA: Diffuse aortic calcifications and soft plaque without aneurysmal dilatation or dissection. . VISCERAL VESSELS: Mild calcifications at the origin the celiac and SMA without occlusion. The VERN is patent RENAL ARTERIES: Calcifications are present at the origin of the renal arteries without stenosis or occlusion. ILIAC VESSELS: Diffuse iliac calcifications, and there appears to be a LEFT iliac stent. No khris occlusion. RIGHT LOWER EXTREMITY: 1. The RIGHT common femoral artery is mildly narrowed however patent. There is normal patency of the RIGHT profunda. 2. There is abrupt occlusion of the RIGHT SFA immediately distal to the origin of the profunda. 3. No contrast noted within the full extent of the RIGHT SFA to the level of the adductor canal. There is collateral reconstitution of the distal RIGHT SFA within the adductor canal. 4. The popliteal artery is patent, normal patency of the tibial peroneal trunk. 5. There is small caliber posterior tibial artery patent to the level of the plantar arch. 6. Scattered calcifications in the anterior tibial artery which however is patent to the level of the dorsum of the foot. The peroneal artery appears to terminate at the level of the distal calf. LEFT LOWER EXTREMITY: 1. There is normal patency of the LEFT common femoral artery which is a mildly narrowed at the origin of the profunda. There is however normal patency of the profunda. 2. There is a stent within the LEFT SFA which is occluded to the level of the distal LEFT SFA. 3. There is faint collateral reconstitution of the popliteal artery which is small in caliber. Scattered calcifications are present. 4. There is a contrast opacification of a patent LEFT posterior tibial artery to the level of the plantar arch. 5. There is scattered calcification in the JOSE which however appears to be patent however only visualized to level of the dorsum of the distal tibia. Peroneal artery is patent to the level of the distal tibiofibular articulation. CT ABDOMEN AND PELVIS: LOWER THORAX: Minimal atelectasis at the lung bases. No consolidation. Cardiac contour is normal. No pericardial effusion, no coronary vascular calcifications. HEPATOBILIARY: Liver: The liver is homogeneous and shows no evidence of focal lesion. Gallbladder: The gallbladder is moderately distended, no calcifications noted. No ductal dilatation. Pancreas: Pancreas is normal size configuration and density. No mass is noted. Spleen: The spleen is homogeneous and normal in size. . BOWEL: Stomach: The stomach is normal in size configuration, no evidence of focal masses, abnormal calcifications. No hiatal hernia noted. Bowel: Small and large have normal configuration, no masses or bowel obstruction noted. Moderate to large amount retained stool throughout the colon. No evidence of bowel obstruction. There are anastomotic sutures in the region of the distal small bowel. No evidence diverticulitis. Appendix: The appendix is not positively identified.: GENITOURINARY: Adrenals: Both adrenal glands are normal in size, no masses or abnormal enhancement noted.. Kidneys: Kidneys appear symmetric in size. No calcifications are seen in the collecting system. There is no hydronephrosis or surrounding fluid. There is an exophytic benign Bosniak type I cyst in the LEFT kidney measuring approximately 2.7 x 2.7 cm. No evidence of obstructive uropathy. Bladder: Normal Pelvic organs: The visualized pelvic organs are normal in size and configuration. No masses or adenopathy noted. RETROPERITONEUM: No retroperitoneal masses appeared normal appearance of the IVC. Details of the aorta as above. PERITONEAL CAVITY: No ascites noted ANTERIOR ABDOMINAL WALL: Postoperative changes of prior mesh repair of the anterior abdominal wall. No hernia noted. BONES AND SOFT TISSUES: The skeleton shows no evidence for fractures or destructive lesions. OTHER: None CT/CTA Abd w/Runoff W/WO Contrast IMPRESSION: 1. Extensive soft and calcified plaque involving the aorta without aneurysmal dilatation dissection or occlusion. 2. LEFT iliac stent appears patent. 3. LEFT SFA stent is occluded from the level of the proximal SFA to the distal SFA at the adductor canal. 4. Small caliber but patent LEFT popliteal and tibial peroneal trunk. There is a patent PATENT LAWYER on the LEFT to level of the plantar arch. 5. The LEFT JOSE is only visualized to level of the distal tibia and LEFT peroneal is patent to the level of the distal calf. 6. Occlusion of the RIGHT SFA immediately distal to the origin of the profunda. There is collateral reconstitution of the distal SFA at the level of the adductor canal. Normal patency of the RIGHT popliteal and tibial peroneal trunk. 7. Scattered calcifications in the RIGHT PATENT LAWYER and PATENT LAWYER which however appear patent to the level of the plantar arch and distal foot. 8. Moderate to large amount retained stool, sequelae of constipation suspected. No masses or bowel obstruction. Anastomotic sutures as detailed without obstruction. 9. No evidence of renal calcification or obstructive uropathy. Benign Bosniak type I cyst in the LEFT kidney for which follow-up is not necessary. 10. No evidence cholelithiasis or ductal dilatation. Electronically Signed: Elie Jordan MD at 23:44 EDT ,
[2024-01-18 12:07] LABS: CREATININE FINGERSTICK < 1.0 mg/dL (0.55-1.02); EGFR FINGERSTICK > 60.0000 mL/min (>60)
== END | disposition home or self-care (01) ==
LOC: CT 11:35
PROVIDERS: PCP Internal Medicine; Referring Provider Nurse Practitioner Acute Care; Visit Provider Nurse Practitioner Acute Care
DX: Z12.2 Encounter for screening for malignant neoplasm of respiratory organs (principal); I70.223 Atherosclerosis of native arteries of extremities with rest pain, bilateral legs; F17.210 Nicotine dependence, cigarettes, uncomplicated
CPT/HCPCS: 71271; 75635; Q9967

== ENCOUNTER → 2024-01-22 | Outpatient (CLI) | payer MEDICARE, SELFPAY ==
[2024-01-22 14:00] LABS: Amphetamine Urine VISTA NEGATIVE (<1000 ng/mL); Barbiturate Urine VISTA NEGATIVE (< 200 ng/mL); Benzodiazepine Urine VISTA POSITIVE (< 200 ng/mL); Cocaine Urine VISTA NEGATIVE (< 300 ng/mL); Ecstacy Urine VISTA NEGATIVE (< 500 ng/mL); Methadone Urine VISTA NEGATIVE (< 300 ng/mL); PCP Urine VISTA NEGATIVE (< 25 ng/mL); THC Urine VISTA NEGATIVE (< 50 ng/mL); Vista UDS pH Range 6
== END | disposition home or self-care (01) ==
PROVIDERS: PCP Internal Medicine; Referring Provider Anesthesiology Pain Medicine; Visit Provider Anesthesiology Pain Medicine
DX: F11.20 Opioid dependence, uncomplicated (principal)
CPT/HCPCS: 80307

== ENCOUNTER 2024-02-04 05:34 | Inpatient (IN) | payer MEDICARE, SELFPAY ==
[2024-01-29 15:26] LABS: Absolute Lymphocyte Count 2.21 X10^3/uL (0.83-4.51); Basophil# 0.07 X10^3/uL; Basophil% 0.6 % (0-1); Eosinophils% 0.9 % (0-5); Hematocrit 28.9 % (37-47); Hemoglobin 8.4 g/dL (12.0-15.0); Lymphocyte # 2.21 X10^3/ul (0.83-4.51); Lymphocyte % 19.7 % (19-41); Mean Corp Hgb Conc 29.1 g/dL (32-36); Mean Corpuscular Hgb 23.5 pg (27.0-32.0); Mean Platelet Vol. 9.3 fl (6.2-12.0); Monocyte# 0.81 X10^3/uL; Monocyte% 7.2 % (0-10); NRBC Flagged by Analyzer 0 % (0-5); Neutrophil # 7.99 X10^3/uL (2.7-7.7); Neutrophil % 71.2 % (47-70); POSITIVE COUNT YES; Platelet Count 469 K/mm3 (150-450); RBC Distribution Width CV 18.8 % (11.6-14.6); RBC Distribution Width SD 55.1 fl (35.1-43.9); Red Blood Count 3.57 M/mm3 (4.2-5.4); White Blood Count 11.2 K/mm3 (4.4-11.0)
[2024-01-29 15:27] LABS: Differential Indicated SCAN CRITERIA MET
[2024-01-29 16:40] LABS: Differential Comment SCANNED
[2024-02-04] VITALS (27 sets, daily range): BP systolic 63–154; BP diastolic 42–119; PULSE 75–104; RESP 10–20; TEMP 35.8–36.3; O2SAT 89–100; BMI 33.3; BMI 33.5
[2024-02-04 06:31] LABS: Hematocrit 26.6 % (37-47); Hemoglobin 7.8 g/dL (12.0-15.0); Mean Corp Hgb Conc 29.3 g/dL (32-36); Mean Corpuscular Volume 81.8 fL (81-99); Platelet Count 492 K/mm3 (150-450); RBC Distribution Width CV 18.5 % (11.6-14.6); Red Blood Count 3.25 M/mm3 (4.2-5.4); White Blood Count 9.6 K/mm3 (4.4-11.0)
[2024-02-04] MEDS: Lactated Ringers 1,000 ML 15 ML IV (06:42)
[2024-02-04 06:46] LABS: Anion Gap 5 (5-15); BUN 19 mg/dL (7-18); BUN/Creat Ratio 20.8 RATIO (10-20); Calcium,Total 9.1 mg/dL (8.5-10.1); Chloride 103 mmol/L (98-107); Creatinine, Serum 0.91 mg/dL (0.55-1.02); EST Glomerular Filtration Rate 65 mL/min (>60); Est Glom Filt Rate - Afr Amer 79 mL/min (>60); Estimated Creatinine Clearance 53.45 ml/min; Glucose 102 mg/dL (74-106); Potassium 4.5 mmol/L (3.5-5.1); Sodium Level 133 mmol/L (136-145)
[2024-02-04 06:49] LABS: International Normalized Ratio 0.9; Prothrombin Time (Protime)PT. 12.3 SECONDS (11.7-14.9)
--- NOTE | 2024-02-04 07:34 | HP.PCM_ITS ---
History and Physical Allergies amlodipine Allergy (Verified 01/29/24 13:47) Unknownclonidine Allergy (Verified 01/29/24 13:47) Unknownadhesive Adverse Reaction (Verified 01/29/24 13:47) Rashcodeine Adverse Reaction (Verified 01/29/24 13:47) Nauseafentanyl Adverse Reaction (Verified 01/29/24 13:47) Other Medications carvedilol 25 mg tablet 25 mg PO BID HEART 05/28/19 [History Confirmed 01/29/24] spironolactone 25 mg tablet 25 mg PO DAILY BLOOD PRESSURE 05/28/19 [History Confirmed 01/29/24] alprazolam 0.5 mg tablet 0.5 mg PO TID PRN ANXIETY 02/12/21 [History Confirmed 01/29/24] psyllium 1 packet PO DAILY PRN CONSTPATION 02/12/21 [History Confirmed 01/29/24] acetaminophen 500 mg tablet 1,000 mg PO Q6H PRN PAIN 07/19/22 [History Confirmed 01/29/24] pantoprazole 40 mg tablet,delayed release 40 mg PO BID GERD 30 days #60 tabs 10/12/22 [Rx Confirmed 01/29/24] guaifenesin 1,200 mg tablet, extended release 12 hr (Mucinex) 1,200 mg PO BID PRN MUCOUS 07/02/23 [History Confirmed 01/29/24] lisinopril 40 mg tablet 40 mg PO DAILY BLOOD PRESSURE 07/14/23 [History Confirmed 01/29/24] aspirin 81 mg tablet,delayed release 81 mg PO BREAKFAST HEART HEALTH #0 tabs 07/19/23 [Rx Confirmed 01/29/24] ferrous sulfate 325 mg (65 mg iron) tablet 325 mg PO DAILY SUPPLEMENT #30 tabs 07/19/23 [Rx Confirmed 01/29/24] atorvastatin 20 mg tablet 20 mg PO QHS CHOLESTEROL 11/06/23 [History Confirmed 01/29/24] docusate sodium 100 mg capsule 100 mg PO BID PRN CONSTIPATION 11/06/23 [History Confirmed 01/29/24] gabapentin 600 mg tablet 600 mg PO 4X/DAY NERVE PAIN 11/06/23 [History Confirmed 01/29/24] tramadol 50 mg tablet 50 mg PO 4X/DAY PAIN 11/06/23 [History Confirmed 01/29/24] dexamethasone 2 mg tablet 6 mg (3 x 2 mg) PO DAILY 7 days #21 tabs 11/09/23 [Rx Confirmed 01/29/24] albuterol sulfate 90 mcg/actuation aerosol inhaler (Ventolin HFA) 2 puff inhalation Q4H PRN shortness of breath or wheezing #18 grams 11/15/23 [Rx Confir med 01/29/24] fluticasone fur. 200 mcg-umeclid 62.5 mcg-vilant 25 mcg inhalat.powder (Trelegy Ellipta) 1 inh inhalation DAILY ASTHMA #60 ea 11/15/23 [Rx Confirmed 01/29/24] clopidogrel 75 mg tablet 75 mg PO DAILY BLOOD THINNER #90 tabs 11/21/23 [Rx Confirmed 01/29/24] cilostazol 50 mg tablet 50 mg PO BID #30 tabs 12/26/23 [Rx Confirmed 01/29/24] PFSH Medical History Alcohol abuse Anxiety disorder Asthma Back pain due to injury Chronic headaches Chronic pain Closed fracture of fifth metatarsal bone of left foot Clostridium difficile colitis COPD (chronic obstructive pulmonary disease) Diverticulitis Diverticulitis of colon without hemorrhage Duodenal ulcer Dyspnea Emphysema of lung Essential hypertension Full dentures H/O spleen injury High cholesterol History of cardiovascular stress test History of pelvic hematoma History of stress test History of ulceration Hoarseness Hyperlipemia Impaired fasting glucose Incisional hernia without mention of obstruction or gangrene Injury of head and neck Injury, spleen, with capsular tears Leg pain Loss of hearing Low iron On home oxygen therapy Osteoarthritis Peptic ulcer disease Pneumohemothorax, traumatic Post-menopausal Pseudocyst of pancreas Rheumatoid arthritis S/P arteriogram of extremity SBO (small bowel obstruction) Shortness of breath Shortness of breath on exertion Smoker Spleen hematoma Ulcer Wears dentures Wears glasses Surgical History H/O colostomy H/O: History of hernia repair Hx of cervical spine surgery Family History Mother Heart disease Hypertension DiabetesSister HypertensionBrother HypertensionSister Hypertension Cervical cancerBrother Pancreatic cancer Social History household members: spouse housing: house Smoking Status: Current every day smoker tobacco type: cigarettes Electronic Cigarette Use: not used second hand exposure: Yes alcohol intake: current alcohol intake frequency: a few times a week substance use type: does not use caffeine: Yes what type of physical activity do you participate in: bicycling frequency: 1-2 times per week HPI HPI HPI: BAHMAN MICHELE, is a 68 F who presents to the office today for follow-up of LLE atherosclerosis with recurrent claudication. She is now having rest pain in her LLE, especially in her foot. She uses a stool on rollers to cook and complete her chores around the house. She does get some relief with tramadol as prescribed by pain management but not complete. I prescribed pletal but she did not notice benefit. I did prescribe percocet but she did not tolerate this. She does have a small crack in her heel which has been present about a week, there is a scab overlying and it has been stable. She denies any drainage, redness, N/V, F/C. She continues to take ASA and plavix as prescribed. She continues to smoke 6 cigarrettes per day. Recall that she had R femoral endarterectomy, right common iliac stent/angioplasty, right sartorius flap on 07/18/2023, L external iliac angioplasty, L SFA stent 05/2023, and L common femoral endarterectomy, L profunda endarterectomy, and L external iliac stent 07/19/22. Last studies were 08/30 and showed R SHAKIR 0.62 and L SHAKIR 0.91. She completed arterial study on 12/25/23 which showed R SHAKIR 0.69 and L SHAKIR 0.38. She also completed CTA runoff on 01/18/24 which showed L SFA occlusion. She completed vein mapping as well. ROS General General: Yes weight change, fatigue and weakness; No appetite, colon cancer or breast cancer HEENT HEENT: No difficulty swallowing, eye injury, eye surgery, swollen glands or hoarseness Endo Endocrine: No thyroid disease, diabetes mellitus, thyroid cancer, Hair loss, heat intolerance or cold intolerance Skin Skin: No rash or changing moles Musc Musculoskeletal: Yes back problems, arthritis and joint pain; No rheumatoid arthritis or gout Cardio Cardiovascular: Yes high blood pressure and shortness of breat with exertion; No murmur, pacemaker, heart disease, atrial fibrillation, heart attack, heart stent, palpitations or chest pain Psych Psychiatric: Yes anxiety; No depression or hearing voices Resp Respiratory: No shortness of breath, No sleep apnea, No cough, Yes COPD, No asthma, No emphysema and Yes wheezing Gastro Gastrointestinal: No abdominal pain, No nausea or vomiting, No diarrhea, No constipation, No blood in stool, Yes acid reflux, Yes hemorrhoids, No ulcers, No gallbladder problem and No black,tarry stools Vik Hematologic: Yes blood thinners, No blood disorders, No bleeding, No anemia and No blood clots Neuro Neurologic: No system reviewed and no additional complaints, except as documented, No as per HPI, No abnormal gait, No abnormal hearing, No abnormal movements, No abnormal speech, No behavioral changes, No burning sensations, Yes confusion, No convulsions, Yes disequilibrium, Yes dizziness, No localized weakness, No frequent falls, Yes headache(s), No lack of coordination, No loss of vision, No memory loss, Yes numbness, No other visual disturbances, No radicular pain, No restless legs, No sensory deficit, No syncope, Yes tingling, No tremor(s), Yes weakness and No other Exam Const General: cooperative and uncomfortable (tearful, in pain) Nutritional Appearance: well nourished Orientation: alert, awake and oriented x3 HENMT Head: normocephalic and atraumatic Ears: hearing grossly normal bilaterally Nose: external nose normal Eyes General: appearance normal, both eyes and all related structures EOM: EOM intact bilaterally Neck Neck: normal visual inspection, full ROM, no lymphadenopathy and trachea midline Thyroid: thyroid normal Lymphatic: no lymphadenopathy noted Resp Effort & Inspection: normal respiratory effort, able to speak in complete sentences, symmetric chest movement and no use of accessory muscles Cardio Rate: regular rate Rhythm: regular rhythm Pulses: brachial pulses present and radial pulses present Skin General: no rashes or lesions noted and no erythema Wounds: no wounds Neuro Cranial Nerves: CN's II-XI intact bilaterally and EOM intact bilaterally Speech: speech normal Gait: normal gait Motor: strength 5/5 throughout Sensory Exam: no sensory deficits noted Extremities Pulses: Absent: Left Dorsalis Pedis Pulse (monophasic) and Left Posterior Tibial Pulse (monophasic ) Lower Extremity Edema: None: Right and +1: Left Psych Appearance: grossly normal and well kempt Mental Status: mental status grossly normal Mood: congruent mood Speech and Movement: speech and movement normal Thought Content: normal Judgment: judgment good Coding Level of Care Code Off vis,est,level 3 Diagnoses Atherosclerosis of left lower extremity with intermittent claudication I70.212 Assessment and Plan Assessment and Plan (1) Atherosclerosis of left lower extremity with intermittent claudication: Status: Acute Plan: Plan is for L femoral-popliteal bypass
[2024-02-04] MEDS: Cefazolin 2 GM in 0.9% Normal Saline (100mL Bag) 100 ML IV (07:40)
[2024-02-04] MEDS: Heparin 10,000 UNITS/10 ML Vial 10000 UNITS (08:26)
[2024-02-04] MEDS: Heparin Injection (Vial) 5,000 UNIT/ML VIAL 5000 UNIT (08:26)
[2024-02-04 09:58] LABS: Cholesterol 119 mg/dL (200); High Density Lipoprotein 51 mg/dL; Triglycerides 141 mg/dL; Very Low Density Lipoprotein 28 mg/dL (5-40)
[2024-02-04 13:54] LABS: ACT Activated Clotting Time 128 sec (74-137)
[2024-02-04 13:54] LABS: ACT Activated Clotting Time 220 sec (74-137)
[2024-02-04 13:54] LABS: ACT Activated Clotting Time 244 sec (74-137)
--- NOTE | 2024-02-04 14:53 | OP.PCM_ITS ---
Report of Operation Date of Procedure: 02/04/24 Pre-Operative Diagnosis: atherosclerosis tribe arteries with rest pain, left l ower extremity Post-Operative Diagnosis: same Surgery/Procedure Performed:: left femoral-below knee popliteal bypass with reversed GSV Surgeon: Alec Lopez Type of Anesthesia: General Estimated Blood Loss (mL): 500 Description of Procedure: HPI: Patient is a 68-year-old female with atherosclerosis with rest pain in the left lower extremity who was undergone multiple prior revascularizations of the iliac and common femoral vessels. She also had undergone SFA popliteal intervention which has since occluded. She presents now for femoral-popliteal bypass, with modifier 22 applied given reoperative groin and need for repeat patch angioplasty of the common femoral adding approximately 1 hour to the procedure time. There was also additional time spent after the vein harvest in order to address some valves that did not open sufficiently enough to allow pulsatile flow. Description of procedure: Upon obtaining form consent verification correct patient procedure site patient was taken to the operating where she was placed under general anesthesia. Ultrasound was then used to evaluate and marked the great saphenous vein which appeared satisfactory throughout the thigh and into the mid calf. She was then positioned prepped and draped in you sterile fashion a time was performed. The prior femoral incision was then opened and Bovie electrocautery was dissect down through the subcutaneous tissue and self- retaining retractors put in position. The sartorius flap from the prior surgery was in proper position and Bovie was used to dissect at the medial edge allowing the muscle to be retracted laterally exposing the femoral vessels. Sharp dissection then used to dissect through the significant scar surrounding the common femoral, proximal SFA, profunda vessels. Patient has a chronically occluded left main profunda which had been endarterectomized with her common femoral endarterectomy however this again was noted to be totally occluded and wrapped in significant scar. Efforts were made to dissect this free onto its te rtiary branches however the vessels became increasingly small and did not appear to be salvageable. She did have a large posterior branch that was effectively acting his profunda which was patent and large caliber. Sharp resected and used dissect proximally up to the distal external iliac artery and a right angle used to place a vessel loop. Writing was then used to place a vessel brought in the proximal profunda, secondary profunda branch, and the proximal SFA. Next longitudinal incision was made in the proximal calf medial to the tibia and Bovie used to dissect down to the fascia. Self-retaining retractors then put in position further dissection carried down to the gastroc which was then retracted posteriorly and medially exposing the popliteal vessels. Sharp dissection used to dissect free the popliteal artery which was soft and free of plaque. Care was taken to identify and protect adjacent nerves and vein structures. Once a satisfactory length was dissected free a right ankle was used to place a vessel proximal and distal. Next the saphenous vein was harvested via skip incisions with side branches ligated with silk ties and divided. After the vein had been dissected free for an adequate length a tunneler was then used to tunnel anatomically from the popliteal incision to the femoral incision. Patient was in heparinized allowed to circulate for 3 minutes after which time the femoral vessels were occluded with Vesseloops. A longitudinal arteriotomy was then created 11 blade extended Loera scissors. The wall of the vessel was very thickened and unhealthy appearing very friable. There was a significant amount of thickening in the media which was causing a stenosis. However, given the friability and poor quality of the tissue we did not feel that performing a formal endarterectomy would be tolerated by the vessel so the intima and media were left in place and a bovine pericardial patch was brought in field. This was then secured in position with 6-0 Prolene running fashion. After completing the suture line clamps removed and satisfactory stasis noted the suture line. The saphenous vein was then ligated distally with silk tie and clipped and then divided. It was then extracted from the skip incisions and then clamped at the saphenofemoral junction. There was then divided below the clamp and placed in heparinized saline and the saphenofemoral junction oversewn with 5-0 Prolene in a running fashion. Common femoral vessels were then reoccluded with Vesseloops longitudinal arteriotomy created within the patch and extended with Loera sciss ors. The vein was then oriented in reverse fashion and beveled to match the arteriotomy. Proximal anastomosis was then performed with 6-0 Prolene in a running fashion. After completing the suture line clamps removed satisfactory stasis was noted. There was a bounding pulse within the graft and the proximal segment however this was extinguished at the first sizable valve. Clamp was removed from the distal graft and there was brisk flow however there was nonpulsatile nature of the distal two thirds of the graft and nonpulsatile flow. The vein graft was then clamped proximal to and distal to the valve and then opened longitudinally with 11 blade extended Loera scissors. There is a valve that was stuck partially closed this was excised and then the remainder of the bovine pericardial patch sutured in position with 6-0 Prolene in a running fashion. After completing suture line clamps removed and satisfactory stasis was noted. Again there was pulsatile nature of the graft now beyond this valve however at the second sizable valve again there was loss of pulsatility. At this location the vein was opened transversely and the valve excised and then the vein repaired in transverse fashion with 7-0 Prolene running fashion. After completing suture line clamps were removed and satisfactory stasis was noted. There is now pulsatile flow when the graft was unclamped and pulsatility through the entirety of the vein graft. Uncertain why these valves created such that hemodynamic issue as the vein was reversed and this was confirmed and the valves were excised that they were in fact reversed. The valves were not particularly thickened but apparently they did not open adequately with arterialized flow. Next the vein was marked to maintain orientation and then secured to the t unneler and pulled through to the distal incision. Popliteal arteries and occluded with Vesseloops and longitudinal arteriotomy created 11 placed in the Loera scissors. Vein was then beveled to match the arteriotomy and anastomosis performed using a 6-0 Prolene running fashion. Prior to completing suture line vessels were backbled. After completing suture line clamps removed satisfactory stasis was noted. As were interrogated Doppler and found to be patent with low resistance signal. There was a fair amount of spasm at the Vesseloops site which improved with time. Patient's heparin was then reversed with protamine and the incision is inspected for hemostasis. Floseal and Surgicel were applied to the femoral anastomosis ultimately with a satisfactory stasis noted. The sartorius muscle was then resecured over the vessels and the incisions closed with 3-0 Vicryl and 4-0 Monocryl and then Dermabond for the skin. The popliteal incision was closed with 2-0 Vicryl, 3-0 Vicryl, 4-0 Monocryl and Dermabond. Again modifier 22 applied given additional 1 hour of operative time for reoperative groin and saphenous vein revisions.
[2024-02-04 15:13] LABS: ACT Activated Clotting Time 226 sec (74-137)
[2024-02-04 15:13] LABS: ACT Activated Clotting Time 220 sec (74-137)
[2024-02-04 15:49] LABS: Hemoglobin 6.9 g/dL (12.0-15.0); Mean Corp Hgb Conc 28.8 g/dL (32-36); Mean Corpuscular Hgb 23.6 pg (27.0-32.0); Mean Corpuscular Volume 82.2 fL (81-99); Mean Platelet Vol. 9.4 fl (6.2-12.0); Platelet Count 461 K/mm3 (150-450); RBC Distribution Width CV 18.6 % (11.6-14.6); RBC Distribution Width SD 55.7 fl (35.1-43.9); Red Blood Count 2.92 M/mm3 (4.2-5.4); White Blood Count 14.7 K/mm3 (4.4-11.0)
[2024-02-04] MEDS: HYDROmorphone 1 MG/ML Syringe IV ×2 (17:00→20:05)
[2024-02-04] MEDS: Gabapentin 600 MG Tablet PO ×2 (17:22→22:14)
[2024-02-04] MEDS: 0.45% Normal Saline 1,000 ML 100 ML IV (17:22)
[2024-02-04] MEDS: ALPRAZolam 0.5 MG Tablet PO ×2 (17:34→22:14)
[2024-02-04] MEDS: traMADol 50 MG Tablet PO ×2 (18:42→22:13)
[2024-02-04] MEDS: Ipratropium/Albuterol Sulfate 3 ML AMPUL.NEB INHALATION (19:05)
[2024-02-04] MEDS: Budesonide Respules 0.5 MG/2 ML AMPUL.NEB. INHALATION (19:05)
[2024-02-04] MEDS: 0.9% Saline Lock 10 ML Syringe IV (20:06)
[2024-02-04] MEDS: HEPARIN/D5w 25,000 UNITS 25,000 UNITS/250 ML IV.SOLN. 5 UNITS CONT INF (21:05)
[2024-02-04] MEDS: Atorvastatin Calcium 80 MG Tablet PO (22:12)
[2024-02-04] MEDS: Acetaminophen 500 MG Tablet 1000 MG PO (22:13)
[2024-02-04] MEDS: Docusate Sodium 100 MG Capsule PO (22:13)
[2024-02-04 23:19] LABS: Hematocrit 28.2 % (37-47); Hemoglobin 8.7 g/dL (12.0-15.0)
[2024-02-05] VITALS (27 sets, daily range): BP systolic 92–148; BP diastolic 46–95; PULSE 82–114; RESP 10–24; TEMP 36.5–37.1; O2SAT 92–100; BMI 34.4
[2024-02-05] MEDS: 0.45% Normal Saline 1,000 ML 100 ML IV ×3 (03:08→21:16)
[2024-02-05] MEDS: Acetaminophen 500 MG Tablet 1000 MG PO ×3 (05:34→21:10)
[2024-02-05] MEDS: traMADol 50 MG Tablet PO ×2 (05:34→12:32)
[2024-02-05] MEDS: ALPRAZolam 0.5 MG Tablet PO ×3 (05:35→21:16)
[2024-02-05 05:58] LABS: Absolute Lymphocyte Count 1.37 X10^3/uL (0.83-4.51); Absolute Neutrophil Count 8.8 X10^3/uL (2.0-7.7); Basophil# 0.02 X10^3/uL; Basophil% 0.2 % (0-1); Hemoglobin 8.2 g/dL (12.0-15.0); Lymphocyte # 1.37 X10^3/ul (0.83-4.51); Lymphocyte % 11.7 % (19-41); Mean Corp Hgb Conc 31.5 g/dL (32-36); Mean Corpuscular Volume 82.5 fL (81-99); Mean Platelet Vol. 9.2 fl (6.2-12.0); Monocyte# 1.49 X10^3/uL; Monocyte% 12.7 % (0-10); NRBC Flagged by Analyzer 0 % (0-5); Neutrophil # 8.79 X10^3/uL (2.7-7.7); Neutrophil % 74.9 % (47-70); Platelet Count 332 K/mm3 (150-450); RBC Distribution Width CV 16.7 % (11.6-14.6); RBC Distribution Width SD 49.8 fl (35.1-43.9); Red Blood Count 3.15 M/mm3 (4.2-5.4); White Blood Count 11.7 K/mm3 (4.4-11.0)
[2024-02-05 06:18] LABS: Anion Gap 5 (5-15); BUN 17 mg/dL (7-18); Calcium,Total 8.1 mg/dL (8.5-10.1); Chloride 106 mmol/L (98-107); Creatinine, Serum 0.71 mg/dL (0.55-1.02); EST Glomerular Filtration Rate 87 mL/min (>60); Est Glom Filt Rate - Afr Amer 106 mL/min (>60); Estimated Creatinine Clearance 61.59 ml/min; Glucose 119 mg/dL (74-106); Potassium 4.5 mmol/L (3.5-5.1); Sodium Level 135 mmol/L (136-145)
[2024-02-05] MEDS: HYDROmorphone 1 MG/ML Syringe IV ×5 (06:27→23:54)
[2024-02-05 06:38] LABS: Partial Thromboplast Time 29.3 Seconds (24.1-36.2)
[2024-02-05] MEDS: Budesonide Respules 0.5 MG/2 ML AMPUL.NEB. INHALATION ×2 (07:05→18:59)
[2024-02-05] MEDS: Ipratropium/Albuterol Sulfate 3 ML AMPUL.NEB INHALATION ×2 (07:05→18:59)
[2024-02-05] MEDS: Carvedilol 25 MG Tablet PO ×2 (08:02→21:10)
[2024-02-05] MEDS: Spironolactone 25 MG Tablet PO (08:02)
[2024-02-05] MEDS: Clopidogrel Bisulfate 75 MG Tablet PO (08:03)
[2024-02-05] MEDS: Multivitamins,Ther W-Minerals Tablet 1 TABLET PO (08:04)
[2024-02-05] MEDS: Pantoprazole Sodium 40 MG Tablet PO ×2 (08:04→21:10)
[2024-02-05] MEDS: Docusate Sodium 100 MG Capsule PO ×2 (08:04→21:10)
[2024-02-05] MEDS: guaiFENesin 1,200 MG Tablet 1200 MG PO (08:04)
[2024-02-05] MEDS: Gabapentin 600 MG Tablet PO ×4 (08:20→21:20)
[2024-02-05] MEDS: Aspirin E.C. 81 MG Tablet PO (08:23)
--- NOTE | 2024-02-05 08:27 | PN.SURG_ITS ---
Subjective Subjective Patient was seen this morning resting comfortably in bed. She requests nicotine patch. She wants to quit smoking at discharge. She reports her pain is better controlled this AM than it was overnight. She has expected pain along the incision sites but otherwise the rest pain in her foot is resolved. She is urinating without difficulty. Objective Data Objective Data Vital Signs: Vital Signs Temp Pulse Resp BP Pulse Ox O2 Del Method O2 Flow Rate 98.0 F 89 15 111/91 H 96 Nasal Cannula 2 02/05/24 03:00 02/05/24 07:06 02/05/24 07:06 02/05/24 07:00 02/05/24 07:06 02/05/24 07:06 02/05/24 07:06 Oxygen Flow Rate (L/min) 2 Oxygen Delivery Method Nasal Cannula Weight: 173 lb 8.061 oz Body Mass Index (BMI) 34.4 Intake & Output: Intake and Output for Last 24 Hours 02/03/24 02/04/24 02/05/24 23:59 23:59 23:59 Intake Total 884.5 / 1562.41 991.24 / 991.24 Output Total 1485 / 1635 900 / 900 Balance -600.5 / -72.59 91.24 / 91.24 Lab / Micro Data 02/05/24 05:40 02/05/24 05:40 Labs: Laboratory Results - last 24 hr 02/04/24 06:48: Blood Type A POSITIVE, Antibody Screen NEGATIVE, Crossmatch See Detail 02/04/24 08:11: Activated Clotting Time 128 02/04/24 09:10: Triglycerides 141, Cholesterol 119, LDL Cholesterol 40, VLDL Cholesterol 28, HDL Cholesterol 51 02/04/24 10:53: Activated Clotting Time 244 H 02/04/24 11:55: Activated Clotting Time 220 H 02/04/24 12:36: Activated Clotting Time 226 H 02/04/24 13:15: Activated Clotting Time 220 H 02/04/24 15:38: WBC 14.7 H, RBC 2.92 L, Hgb 6.9 L, Hct 24.0 L, MCV 82.2, MCH 23.6 L, MCHC 28.8 L, RDW Std Deviation 55.7 H, RDW Coeff of Renea 18.6 H, Plt Count 461 H, MPV 9.4 02/04/24 23:11: Hgb 8.7 L, Hct 28.2 L 02/05/24 05:40: WBC 11.7 H, RBC 3.15 L, Hgb 8.2 L, Hct 26.0 L, MCV 82.5, MCH 26.0 L, MCHC 31.5 L D, RDW Std Deviation 49.8 H, RDW Coeff of Renea 16.7 H, Plt Count 332, MPV 9.2, Immature Gran % (Auto) 0.500, Neut % (Auto) 74.9 H, Lymph % (Auto) 11.7 L, [place] % (Auto) 12.7 H, Eos % (Auto) 0.0, Baso % (Auto) 0.2, Absolute Neuts (auto) 8.8 H, Absolute Lymphs (auto) 1.37, Nucleated RBC % 0, APTT 29.3, Sodium 135 L, Potassium 4.5, Chloride 106, Carbon Dioxide 24.0, Anion Gap 5, BUN 17, Creatinine 0.71, Estim Creat Clear Calc 61.59, Est GFR (MDRD) Af Amer 106, Est GFR (MDRD) Non-Af 87, BUN/Creatinine Ratio 24.0 H, Glucose 119 H, Calcium 8.1 L Physical Exam Const alert, oriented x3 and no apparent distress General Appearance: cooperative and comfortable HEENT normocephalic, head/scalp atraumatic, hearing grossly normal bilaterally, external ears normal and external nose normal Eyes EOMs intact bilaterally General Eye: normal appearance of both eyes Neck General: normal visual inspection and trachea midline Resp normal respiratory effort Effort and Inspection: able to speak in complete sentences; Negative for labored, grunting, stridor or audible wheezes Cardio regular rate and regular rhythm Extremity Extremity Narrative: L groin incision with Prevena vac in place, maintaining good seal. No evidence of ecchymosis, hematoma. L medical leg incisions with silver mepilex dressing in place, C/D/I. L DP and PT with strong monophasic signals. L foot is warm and pink. Skin no rashes or lesions noted Trauma: no lacerations or abrasions Neuro oriented x3, CN's II-XII intact bilaterally, moves all extremities and no focal motor deficits Speech: speech normal Psych mental status grossly normal, cooperative, affect normal, speech normal and activity/motor behavior normal Assessment & Plan Assessment/Plan (1) Atherosclerosis of left lower extremity with intermittent claudication: PLAN: She is POD#1 from L femoral to below knee popliteal bypass with reversed GSV. She had low BPs overnight, but this has improved this morning. She has Hgb down to 6.9 yesterday due to expected acute blood loss anemia postoperatively. She was given 2 units PRBCs and Hgb improved to 8.7. Hgb is 8.2 this morning, will continue to monitor. Continue with low dose heparin for now. Nicotine patch ordered. Okay for normal diet this morning. Discontinue cross. Hopefully will get up to chair today with PT/OT or nursing.
--- NOTE | 2024-02-05 09:31 | CASEMGMT ---
MARGO VALLEJO Assessment Face to Face with patient for initial transition planning/care coordination assessment. MARGO VALLEJO introduced self and role at [facility], pt voices understanding. Pt is A&Ox4 and is resting comfortably in bed and is calm. Pt is currently on room air. Care providers, pharmacy, and demographics verified. Admitting dx: Atherosclerosis LACE Strata: 1 PCP: Isaac Specialists: John Flores Mooney (Urology) Preferred Pharmacy: [facility] Insurance: [facility] COM[facility] Prescription Benefit: Yes LNOK: Tasia Avendano (Shila), Eloy Leija (H), Fanny Leija (Shila) Living Arrangements: Pt lives with her and daughter (Fanny) in a 2 story home with a BM with a FFSU and 2 steps to enter ADLs/IADLs: Ind Transportation: Self, , Daughter DME: O2 through [facility]. Pt states that she wears 2L HS and as needed. Email sent to [facility] to verify current Rx. Pt states that she has portable tanks, concentrator, and a pulse ox. Pt does not have a tank with her currently. Pt states that she does not want to wear oxygen at time of DC. Will follow. Pt also reports that she has a walker but does not use. Pt has grab bars in her tub shower. HHC/SNF: Denies history or needs Pt?s goal: home no needs Plan: Therapy evals are pending. Pt refuses HHC, OP therapy, and SNF needs at this time. Pt wishes to return home once medically ready. CM to follow for safe DC home from [facility]. Matias Skelton RN, CM
[2024-02-05] MEDS: 0.9% Saline Lock 10 ML Syringe IV ×3 (19:42→23:54)
[2024-02-05] MEDS: Atorvastatin Calcium 80 MG Tablet PO (21:10)
[2024-02-05] MEDS: Lisinopril 40 MG Tablet PO (21:10)
[2024-02-05] MEDS: oxyCODONE 5 MG Tablet 10 MG PO (21:15)
[2024-02-06] VITALS (31 sets, daily range): BP systolic 86–124; BP diastolic 49–88; PULSE 93–115; RESP 13–27; TEMP 36.2–36.9; O2SAT 90–100; BMI 34.1
[2024-02-06] MEDS: HEPARIN/D5w 25,000 UNITS 25,000 UNITS/250 ML IV.SOLN. 5 UNITS CONT INF (01:59)
--- NOTE | 2024-02-06 02:05 | NURSING ---
MAR shows heparin gtt is currently running at 500 units/hr. However, there is no heparin gtt present in pt's room. New bag of heparin hung at this time per order.
[2024-02-06] MEDS: HYDROmorphone 1 MG/ML Syringe IV ×2 (02:59→06:21)
[2024-02-06] MEDS: oxyCODONE 5 MG Tablet 10 MG PO ×4 (03:00→22:16)
[2024-02-06] MEDS: 0.9% Saline Lock 10 ML Syringe IV (03:01)
[2024-02-06 05:15] LABS: Hemoglobin 7.5 g/dL (12.0-15.0)
[2024-02-06] MEDS: Acetaminophen 500 MG Tablet 1000 MG PO ×3 (06:21→20:36)
[2024-02-06] MEDS: ALPRAZolam 0.5 MG Tablet PO ×3 (06:21→20:36)
[2024-02-06] MEDS: Clopidogrel Bisulfate 75 MG Tablet PO (08:34)
[2024-02-06] MEDS: Multivitamins,Ther W-Minerals Tablet 1 TABLET PO (08:34)
[2024-02-06] MEDS: guaiFENesin 1,200 MG Tablet 1200 MG PO (08:34)
[2024-02-06] MEDS: Gabapentin 600 MG Tablet PO ×4 (08:34→20:35)
[2024-02-06] MEDS: Docusate Sodium 100 MG Capsule PO (08:34)
[2024-02-06] MEDS: Carvedilol 25 MG Tablet PO ×2 (08:34→20:35)
[2024-02-06] MEDS: Aspirin E.C. 81 MG Tablet PO (08:34)
[2024-02-06] MEDS: Spironolactone 25 MG Tablet PO (08:35)
[2024-02-06] MEDS: Pantoprazole Sodium 40 MG Tablet PO ×2 (08:35→20:35)
--- NOTE | 2024-02-06 09:27 | WOUNDNOTE ---
The Prevena VAC was not maintaining a seal. was asked to apply a new Prevena VAC to the left groin incision. removed the dressing. it had been stuck to the Mepilex dressing so a small piece was trimmed off to get the Prevena dressing off. applied drape to seal the Mepilex dressing back down. Prevena dressing was placed to the left groin. good alisia noted at 125mmHg suction. pt tolerated well.
--- NOTE | 2024-02-06 11:55 | PN.SURG_ITS ---
Subjective Subjective Patient was seen resting in bedside chair today. She complains of some nausea/heart burn. She has not had a BM yet. She has not had much of an appetite either, has eaten very small portions at meal time. She does report pain at the incision sites as expected. Her Prevena vac dressing was changed today and this is now functioning much better. Her IVs kept blowing so a midline was placed. She tolerated this well. Her Hgb was 7.5 this AM so 1 unit PRBC was transfused. Recheck Hgb is pending. Patient reports she does not actually have an oxycodone allergy. Changed tramadol to oxycodone. Her pain is better controlled, she is not requiring dilaudid. Objective Data Objective Data Vital Signs: Vital Signs Temp Pulse Resp BP Pulse Ox O2 Del Method O2 Flow Rate 97.2 F L 102 H 15 120/56 L 98 Room Air 4 02/06/24 09:00 02/06/24 11:00 02/06/24 11:00 02/06/24 11:00 02/06/24 11:00 02/06/24 11:00 02/05/24 22:00 Oxygen Flow Rate (L/min) 4 Oxygen Delivery Method Room Air Weight: 174 lb 9.698 oz Body Mass Index (BMI) 34.1 Intake & Output: Intake and Output for Last 24 Hours 02/04/24 02/05/24 02/06/24 23:59 23:59 23:59 Intake Total 884.5 / 1562.41 2899.57 / 2899.57 1000 / 1000 Output Total 1485 / 1635 2525 / 2525 650 / 650 Balance -600.5 / -72.59 374.57 / 374.57 350 / 350 Lab / Micro Data 02/06/24 05:10 02/05/24 05:40 Labs: Laboratory Results - last 24 hr 02/04/24 06:48: Crossmatch See Detail 02/06/24 05:10: Hgb 7.5 L Physical Exam Const alert, oriented x3 and no apparent distress General Appearance: cooperative and comfortable HEENT normocephalic, head/scalp atraumatic, hearing grossly normal bilaterally, external ears normal and external nose normal Eyes EOMs intact bilaterally General Eye: normal appearance of both eyes Neck General: normal visual inspection and trachea midline Resp normal respiratory effort Effort and Inspection: able to speak in complete sentences; Negative for labored , grunting, stridor or audible wheezes Cardio regular rate and regular rhythm GI soft to palpation and non-tender Extremity Extremity Narrative: L groin incision with Prevena vac in place, maintaining good seal. No evidence of ecchymosis, hematoma. L medical leg incisions with silver mepilex dressing in place, C/D/I. L DP and PT with strong monophasic signals. L foot is warm and pink. Skin no rashes or lesions noted Trauma: no lacerations or abrasions Neuro oriented x3, CN's II-XII intact bilaterally, moves all extremities and no focal motor deficits Speech: speech normal Psych mental status grossly normal, cooperative, affect normal, speech normal and activity/motor behavior normal Assessment & Plan Assessment/Plan (1) Atherosclerosis of left lower extremity with intermittent claudication: PLAN: She is POD#2 from L femoral to below knee popliteal bypass with reversed GSV. Hgb was 7.5 this AM. She has received 1 unit PRBC. Repeat Hgb is pending. Will continue to monitor. Plan is to continue low dose heparin for now and transition to Xarelto 10mg daily at discharge. Will add Miralax BID to bowel regimen. She is already on docusate BID. She is encouraged to ambulate with nursing/PT/OT.
[2024-02-06] MEDS: Mag Hydrox/Al Hydrox/Simeth 30 ML UDC PO (13:15)
[2024-02-06] MEDS: Polyethylene Glycol 3350 17 GM PACKET PO (13:15)
--- NOTE | 2024-02-06 16:01 | PCM.OP.PRO ---
Procedure Report Date of Procedure: 02/06/24 Assessment & Plan Assessment/Plan (1) Poor venous access: PLAN: PROCEDURE: IV Placement under Ultrasound Guidance PERFORMED BY: AVANI Ryan INDICATION: IV access required. Poor venous access. TECHNIQUE: Patient identity was verified with two patient identifiers. Hands were sanitized. The patient was positioned supine with right arm at 90 degrees. The patient's upper arm vasculature was assessed using ultrasound, and the right brachial vein was externally marked. The vein was suitable for insertion of a 20 gauge 8 cm extended dwell catheter. The sterile kit was opened with additional supplies dropped in. Mask and prep gloves were donned. The underdrape was placed under the patient's arm. The site was prepped with chlorhexidine, and tourniquet was loosely applied. Prep gloves were discarded, and hands were sanitized. Sterile gloves were donned, and the patient's arm was draped. The sterile kit was assembled with needless connector and loop flushed with sterile normal saline. The right brachial vein was then accessed using dynamic ultrasound guidance, and the catheter advanced easily. 1 attempt was required. The tourniquet was released. The flushed loop and needless connector were attached. Blood return was easily aspirated. 10 ml sterile normal saline was delivered via pulsatile flush, and the loop was clamped prior to removal of the syringe to prevent back flow. Skin was prepped and followed by application of a stat-lock and a clear dressing was applied to secure the IV. The patient tolerated the procedure well.
[2024-02-06] MEDS: Ipratropium/Albuterol Sulfate 3 ML AMPUL.NEB INHALATION (17:13)
[2024-02-06] MEDS: Budesonide Respules 0.5 MG/2 ML AMPUL.NEB. INHALATION (17:13)
[2024-02-06 17:42] LABS: Hemoglobin 8.1 g/dL (12.0-15.0)
[2024-02-06] MEDS: Atorvastatin Calcium 80 MG Tablet PO (20:35)
[2024-02-06] MEDS: Lisinopril 40 MG Tablet PO (20:36)
[2024-02-06] MEDS: Albuterol 2.5 MG/3 ML VIAL.NEB. INHALATION (22:59)
[2024-02-07] VITALS (17 sets, daily range): BP systolic 90–143; BP diastolic 57–95; PULSE 82–106; RESP 11–19; TEMP 36.2–36.9; O2SAT 91–98; BMI 33.8
[2024-02-07] MEDS: oxyCODONE 5 MG Tablet 10 MG PO ×2 (04:51→11:05)
[2024-02-07 04:53] LABS: Absolute Lymphocyte Count 2.36 X10^3/uL (0.83-4.51); Absolute Neutrophil Count 7.7 X10^3/uL (2.0-7.7); Basophil# 0.06 X10^3/uL; Basophil% 0.5 % (0-1); Eosinophil# 0.17 X10^3/uL; Eosinophils% 1.4 % (0-5); Hematocrit 25.7 % (37-47); Hemoglobin 8.1 g/dL (12.0-15.0); Lymphocyte # 2.36 X10^3/ul (0.83-4.51); Lymphocyte % 19.4 % (19-41); Mean Corp Hgb Conc 31.5 g/dL (32-36); Mean Corpuscular Hgb 26.6 pg (27.0-32.0); Mean Corpuscular Volume 84.3 fL (81-99); Mean Platelet Vol. 9.1 fl (6.2-12.0); Monocyte# 1.75 X10^3/uL; Monocyte% 14.4 % (0-10); NRBC Flagged by Analyzer 0.3 % (0-5); Neutrophil # 7.73 X10^3/uL (2.7-7.7); Neutrophil % 63.6 % (47-70); POSITIVE DIFFERENTIAL YES; Platelet Count 266 K/mm3 (150-450); RBC Distribution Width CV 17.2 % (11.6-14.6); RBC Distribution Width SD 52.9 fl (35.1-43.9); Red Blood Count 3.05 M/mm3 (4.2-5.4); White Blood Count 12.2 K/mm3 (4.4-11.0)
[2024-02-07 05:07] LABS: Partial Thromboplast Time 35.1 Seconds (24.1-36.2)
[2024-02-07] MEDS: Acetaminophen 500 MG Tablet 1000 MG PO ×2 (05:16→14:13)
[2024-02-07] MEDS: ALPRAZolam 0.5 MG Tablet PO ×2 (05:17→14:13)
[2024-02-07 05:44] LABS: Differential Indicated SCAN CRITERIA MET
[2024-02-07 06:38] LABS: Differential Comment SCANNED; Target Cells RARE
[2024-02-07] MEDS: Ipratropium/Albuterol Sulfate 3 ML AMPUL.NEB INHALATION (06:39)
[2024-02-07] MEDS: Budesonide Respules 0.5 MG/2 ML AMPUL.NEB. INHALATION (06:39)
[2024-02-07] MEDS: 0.9% Saline Lock 10 ML Syringe IV (08:21)
[2024-02-07] MEDS: Clopidogrel Bisulfate 75 MG Tablet PO (08:22)
[2024-02-07] MEDS: Aspirin E.C. 81 MG Tablet PO (08:22)
[2024-02-07] MEDS: Spironolactone 25 MG Tablet PO (08:22)
[2024-02-07] MEDS: Gabapentin 600 MG Tablet PO ×2 (08:22→14:12)
[2024-02-07] MEDS: Multivitamins,Ther W-Minerals Tablet 1 TABLET PO (08:22)
[2024-02-07] MEDS: Pantoprazole Sodium 40 MG Tablet PO (08:22)
[2024-02-07] MEDS: Carvedilol 25 MG Tablet PO (08:22)
[2024-02-07] MEDS: Furosemide 20 MG/2 ML VIAL IV (08:24)
--- NOTE | 2024-02-07 13:12 | PN.SURG_ITS ---
Subjective Subjective Patient is seen up to bedside chair this morning. She is doing well. Pain is well controlled on oral pain medications. She did have a BM yesterday after Miralax, since then her nausea has also resolved and her appetite is better. Hgb is stable at 8.1 today. She is chronically anemic with baseline around 8.5-9.0. Foot/leg pain from prior to surgery remains significantly improved. She is ambulating well, feels she can handle ambulating around her home and she does have her daughter living with her for assistance. Objective Data Objective Data Vital Signs: Vital Signs Temp Pulse Resp BP Pulse Ox O2 Del Method O2 Flow Rate 97.2 F L 94 17 107/93 H 95 Room Air 2 02/07/24 12:00 02/07/24 12:00 02/07/24 12:00 02/07/24 12:00 02/07/24 12:00 02/07/24 12:00 02/07/24 06:40 Oxygen Flow Rate (L/min) 2 Oxygen Delivery Method Room Air Weight: 173 lb 8.061 oz Body Mass Index (BMI) 33.8 Intake & Output: Intake and Output for Last 24 Hours 02/05/24 02/06/24 02/07/24 23:59 23:59 23:59 Intake Total 2899.57 / 2899.57 1691 / 1691 480 / 480 Output Total 2525 / 2525 1150 / 1150 1690 / 1690 Balance 374.57 / 374.57 541 / 541 -1210 / -1210 Lab / Micro Data 02/07/24 04:42 02/05/24 05:40 Labs: Laboratory Results - last 24 hr 02/04/24 06:48: Crossmatch See Detail 02/06/24 17:20: Hgb 8.1 L 02/07/24 04:42: WBC 12.2 H, RBC 3.05 L, Hgb 8.1 L, Hct 25.7 L, MCV 84.3, MCH 26.6 L, MCHC 31.5 L, RDW Std Deviation 52.9 H, RDW Coeff of Renea 17.2 H, Plt Count 266, MPV 9.1, Immature Gran % (Auto) 0.700, Neut % (Auto) 63.6, Lymph % (Auto) 19.4, [place] % (Auto) 14.4 H, Eos % (Auto) 1.4, Baso % (Auto) 0.5, Absolute Neuts (auto) 7.7, Absolute Lymphs (auto) 2.36, Nucleated RBC % 0.3, Differential Comment SCANNED, Diff Path Review May foll, Target Cells RARE, APTT 35.1 Physical Exam Const alert, oriented x3 and no apparent distress General Appearance: cooperative and comfortable HEENT normocephalic, head/scalp atraumatic, hearing grossly normal bilaterally, external ears normal and external nose normal Eyes EOMs intact bilaterally General Eye: normal appearance of both eyes Neck General: normal visual inspection and trachea midline Resp normal respiratory effort Effort and Inspection: able to speak in complete sentences; Negative for labored, grunting, stridor or audible wheezes Cardio regular rate and regular rhythm GI soft to palpation and non-tender Extremity Extremity Narrative: L groin incision with Prevena vac in place, maintaining good seal. No evidence of ecchymosis, hematoma. L medical leg incisions with silver mepilex dressing in place, C/D/I. L DP and PT with strong monophasic signals. L foot is warm and pink. Skin no rashes or lesions noted Trauma: no lacerations or abrasions Neuro oriented x3, CN's II-XII intact bilaterally, moves all extremities and no focal motor deficits Speech: speech normal Psych mental status grossly normal, cooperative, affect normal, speech normal and activity/motor behavior normal Assessment & Plan Assessment/Plan (1) Atherosclerosis of left lower extremity with intermittent claudication: PLAN: She is POD#3 from L femoral to below knee popliteal bypass with reversed GSV. PT and DP doppler signals are stable, L foot is warm and pink. Incision sites are all satisfactory in appearance. Hgb is stable today. She is chronically anemic, will have her continue with iron supplement at d/c and follow-up with her PCP for ongoing management of this. Plan for discharge this afternoon.
--- NOTE | 2024-02-07 13:22 | DS.PCM_ITS ---
Providers Date of Admission: 02/04/24 Primary Care Physician: Dr. Nate Gray MD Reason For Visit: ATHEROSCLEROSIS [place] VESSELS WITH REST PAIN Diagnosis Discharge Diagnosis (1) Atherosclerosis of left lower extremity with intermittent claudication: Status: Acute Code(s): I70.212 - Atherosclerosis of [place] arteries of extremities with intermittent claudication, left leg Medications at Discharge Home Medications carvedilol 25 mg tablet 25 mg PO BID HEART 05/28/19 spironolactone 25 mg tablet 25 mg PO DAILY BLOOD PRESSURE 05/28/19 alprazolam 0.5 mg tablet 0.5 mg PO TID ANXIETY 02/12/21 psyllium 1 packet PO DAILY PRN CONSTPATION 02/12/21 acetaminophen 500 mg tablet 1,000 mg PO Q6H PRN PAIN 07/19/22 pantoprazole 40 mg tablet,delayed release 40 mg PO BID GERD 30 days #60 tabs 10/12/22 guaifenesin 1,200 mg tablet, extended release 12 hr (Mucinex) 1,200 mg PO BID PRN MUCOUS 07/02/23 lisinopril 40 mg tablet 40 mg PO QHS BLOOD PRESSURE 07/14/23 aspirin 81 mg tablet,delayed release 81 mg PO BREAKFAST HEART [employer] #0 tabs 07/19/23 gabapentin 600 mg tablet 600 mg PO 4X/DAY NERVE PAIN 11/06/23 tramadol 50 mg tablet 50 mg PO 4X/DAY PRN PAIN 11/06/23 albuterol sulfate 90 mcg/actuation aerosol inhaler (Ventolin HFA) 2 puff inhalation Q4H PRN shortness of breath or wheezing #18 grams 11/15/23 fluticasone fur. 200 mcg-umeclid 62.5 mcg-vilant 25 mcg inhalat.powder (Trelegy Ellipta) 1 inh inhalation DAILY ASTHMA #60 ea 11/15/23 clopidogrel 75 mg tablet 75 mg PO DAILY BLOOD THINNER #90 tabs 11/21/23 atorvastatin 80 mg tablet 80 mg PO QHS CHOLESTEROL 01/30/24 buprenorphine 5 mcg/hour weekly transdermal patch 1 patch topical QWEEK PAIN 01/30/24 multivitamin with minerals-folic acid 80 mcg chewable tablet (Centrum Adult 50 Plus) 1 tab PO DAILY SUPPLEM 01/30/24 docusate sodium 100 mg capsule 100 mg PO BID 7 days #14 caps 02/07/24 nicotine 21 mg/24 hr daily transdermal patch 21 mg transdermal DAILY #28 ea 02/07/24 oxycodone 5 mg tablet 10 mg (2 x 5 mg) PO Q8H PRN PRN Pain Score 4-10 7 days #21 tabs 02/07/24 rivaroxaban 10 mg tablet (Xarelto) 10 mg PO DAILY #30 tabs 02/07/24 Hospital Course Summary of Care Provided Hospital Course: Linda Leija is a 68 y/o female who underwent L femoral- below knee popliteal bypass with reversed GSV on 02/05/24. Following the procedure she was routinely admitted to the ICU for hemodynamic and vascular status monitoring. Following surgery on, she did have a decrease in her Hgb from 8.4 (01/29/24) to 6.9 so she received 2 units PRBC on 02/03 with improvement in her Hgb to 8.7. On 02/05, Hgb had trended back down to 7.5 so she received another unit PRBC with improvement to 8.1 and now today was 9.7. She is chronically anemic and Hgb is at her usual baseline. She is advised to continue with iron supplementation and to f/u with her PCP for continued workup and management of this anemia. Otherwise, her vascular status was improved following surgery and has remained stable. She has a Prevena vacuum dressing at the L groin incision site. This was switched out to to machine/seal issues yesterday and the new dressing has been maintaining good seal. There are silver mepilex dressings covering the incisions down the medial left leg. All dressings will remain in place for 1 week total postop. She is voiding without difficulty, pain is well controlled, she is tolerating a normal diet, and she is ambulating well. She is medically stable for discharge home with outpatient follow-up in the office in 2-4 weeks. Physical Exam Const alert, oriented x3 and no apparent distress General Appearance: cooperative and comfortable HEENT normocephalic, head/scalp atraumatic, hearing grossly normal bilaterally, external ears normal and external nose normal Eyes EOMs intact bilaterally General Eye: normal appearance of both eyes Neck General: normal visual inspection and trachea midline Resp normal respiratory effort Effort and Inspection: able to speak in complete sentences; Negative for labored, grunting, stridor or audible wheezes Cardio regular rate and regular rhythm GI soft to palpation and non-tender Extremity Extremity Narrative: L groin incision with Prevena vac in place, maintaining good seal. No evidence of ecchymosis, hematoma. L medical leg incisions with silver mepilex dressing in place, C/D/I. L DP and PT with strong monophasic signals. L foot is warm and pink. Skin no rashes or lesions noted Trauma: no lacerations or abrasions Neuro oriented x3, CN's II-XII intact bilaterally, moves all extremities and no focal motor deficits Speech: speech normal Psych mental status grossly normal, cooperative, affect normal, speech normal and activity/motor behavior normal Weight / BMI Weight Weight: 173 lb 8.061 oz Body Mass Index (BMI) 33.8 ABG / Lab / Microbiology Data 02/07/24 13:45 02/05/24 05:40 Laboratory: Laboratory Results - last 24 hr 02/04/24 06:48: Crossmatch See Detail 02/06/24 17:20: Hgb 8.1 L 02/07/24 04:42: WBC 12.2 H, RBC 3.05 L, Hgb 8.1 L, Hct 25.7 L, MCV 84.3, MCH 26.6 L, MCHC 31.5 L, RDW Std Deviation 52.9 H, RDW Coeff of Renea 17.2 H, Plt Count 266, MPV 9.1, Immature Gran % (Auto) 0.700, Neut % (Auto) 63.6, Lymph % (Auto) 19.4, [place] % (Auto) 14.4 H, Eos % (Auto) 1.4, Baso % (Auto) 0.5, Absolute Neuts (auto) 7.7, Absolute Lymphs (auto) 2.36, Nucleated RBC % 0.3, Differential Comment SCANNED, Diff Path Review May foll, Target Cells RARE, APTT 35.1 D/C Instructions Discharge Diet: No restrictions May shower in (days): 1 Weight Bearing Status: Weight bearing as tolerated Lifting Restricted to (Lbs): 20 Lifting Restrictions: Do not lift greater than 20 pounds for 3 weeks Call your doctor if your incision/area has: Sudden Increased Bleeding, Increased Pain/ Swelling and Foul Smelling Discharge Call your doctor if you observe: Fever of 101 or Higher and Uncontrolled pain Remove Dressing in: 4 days Additional Instructions: You have a Prevena vacuum dressing over the L groin incision and silver surgical dressings over the incisions down the inside of your left leg. These dressing should remain in place until 02/10 if possible. On 02/10 (Sunday), you can remove all of these dressings. To remove the vacuum dressing do the following: (1) Hold down the power button until you hear a beep and the green light goes out (2) Find the white connectors along the tubing and twist them apart to disconnect (3) The purple foam in the dressing should puff up (5) Once it has puffed up, gently and carefully peel off the dressing (4) Throw everything away. All of the incision sites were closed with skin glue which will continue to protect them after you remove the above dressings. The glue will peel off on its own over the next couple of weeks. Do not pick at it. You may shower. Soap and water may rinse over the incision sites. Pat gently to dry. Do not submerge the incision sites in water such as to take a bath, go swimming, etc for 3 weeks. Do not lift greater than 20 pounds for 3 weeks. You have been prescribed Xarelto 10mg tablets to be taken by mouth once daily to prevent DVT. Please also continue to take your Aspirin and Plavix as well. You have been prescribed oxycodone 10mg tablets to be taken every 8 hours as needed for pain. Do not take this in combination with any other prescription pain medications. You should not drive while you are taking this medication. You are scheduled for follow-up in the office on 03/04/2024 at 1:30 PM. If you need to change this appointment or have any other questions/concerns please call the office at [phone]. Please Follow Up With: Ella Rosales PA When: 03/04/24 at 1:30 PM Meaningful Use Info Meaningful Use Meaningful Use Diagnoses (Choose all that apply): None applicable Ischemic Stroke Statin Dosing Therapy Reference: STATIN DOSE THERAPY REFERENCE: * Patients > 75 years receive moderate or high dose statin therapy. * Patients 75 years or YOUNGER should receive HIGH intensity statin dose unless contraindicated. You will be required to document reason for non-treatment if statin daily dose does not meet guidelines. HIGH DOSE STATIN THERAPY DAILY Atorvastatin > than or = to 40 mg Rosuvastatin > than or = to 20 mg Amlodipine + Atorvastatin > than or = to 2.5/40 mg Ezetimibe + Simvastatin 10/80 mg Simvastatin 80mg Discharge Plan Admission Admit Date/Time: 02/04/24 05:34 Primary Reason for Your Visit: L fem-pop bypass Attending Provider: Alec Lopez Primary Care Provider: Nate Gray Instructions Additional Instructions / Restrictions: You have a Prevena vacuum dressing over the L groin incision and silver surgical dressings over the incisions down the inside of your left leg. These dressing should remain in place until 02/10 if possible. On 02/10 (Sunday), you can remove all of these dressings. To remove the vacuum dressing do the following: (1) Hold down the power button until you hear a beep and the green light goes out (2) Find the white connectors along the tubing and twist them apart to disconnect (3) The purple foam in the dressing should puff up (5) Once it has puffed up, gently and carefully peel off the dressing (4) Throw everything away. All of the incision sites were closed with skin glue which will continue to protect them after you remove the above dressings. The glue will peel off on its own over the next couple of weeks. Do not pick at it. You may shower. Soap and water may rinse over the incision sites. Pat gently to dry. Do not submerge the incision sites in water such as to take a bath, go swimming, etc for 3 weeks. Do not lift greater than 20 pounds for 3 weeks. You have been prescribed Xarelto 10mg tablets to be taken by mouth once daily to prevent DVT. Please also continue to take your Aspirin and Plavix as well. You have been prescribed oxycodone 10mg tablets to be taken every 8 hours as needed for pain. Do not take this in combination with any other prescription pain medications. You should not drive while you are taking this medication. You are scheduled for follow-up in the office on 03/04/2024 at 1:30 PM. If you need to change this appointment or have any other questions/concerns please call the office at [phone]. Discharge Orders/Prescriptions Prescriptions: New docusate sodium 100 mg Capsule 100 mg PO BID 7 Days Qty: 14 0RF nicotine 21 mg/24 hr Patch 24 Hour 21 mg transdermal DAILY Qty: 28 0RF oxycodone 5 mg Tablet 10 mg PO Q8H PRN PRN (Reason: Pain Score 4-10) 7 Days Qty: 21 0RF Xarelto 10 mg tablet 10 mg PO DAILY Qty: 30 1RF Continued Trelegy Ellipta 200-62.5-25 mcg blister with device 1 inh inhalation DAILY Qty: 60 11RF albuterol sulfate [Ventolin HFA] 90 mcg/actuation HFA aerosol inhaler 2 puff inhalation Q4H PRN (Reason: shortness of breath or wheezing) Qty: 18 6RF carvedilol 25 MG tablet 25 mg PO BID spironolactone 25 MG tablet 25 mg PO DAILY alprazolam 0.5 mg tablet 0.5 mg PO TID psyllium Packet 1 packet PO DAILY PRN (Reason: CONSTPATION ) acetaminophen 500 mg Tablet 1,000 mg PO Q6H PRN (Reason: PAIN ) pantoprazole 40 mg Tablet,Delayed Release (Dr/Ec) 40 mg PO BID 30 Days Qty: 60 0RF lisinopril 40 mg tablet 40 mg PO QHS aspirin 81 mg Tablet,Delayed Release (Dr/Ec) 81 mg PO BREAKFAST Qty: 0 0RF guaifenesin [Mucinex] 1,200 mg tablet extended release 12hr 1,200 mg PO BID PRN (Reason: MUCOUS) gabapentin 600 mg tablet 600 mg PO 4X/DAY Centrum Adult 50 Plus 80 mcg tablet,chewable 1 tab PO DAILY atorvastatin 80 mg tablet 80 mg PO QHS clopidogrel 75 mg tablet 75 mg PO DAILY Qty: 90 3RF Held tramadol 50 mg tablet 50 mg PO 4X/DAY PRN (Reason: PAIN ) Hold Instructions: Resume on 02/14/24. You may restart once you have completed the oxycodone that was prescribed or after first discussing with pain management buprenorphine 5 mcg/hour patch weekly 1 patch topical QWEEK Hold Instructions: Resume on 03/06/24. Discuss with pain management prior to restarting Patient Comments: PATIENT STATES DOES NOT WORK Referrals / Follow Up: Nate Gray MD [Primary Care Provider] - Disposition Disposition (needs filled in before D/C Order can be placed): Home, Self Care
[2024-02-07 13:28] LABS: Pathologist Review Reviewed
[2024-02-07 13:55] LABS: Hemoglobin 9.7 g/dL (12.0-15.0)
--- NOTE | 2024-02-07 14:28 | CASEMGMT ---
Pt DC order placed. Pt is currently 98% on RA. Pt will be going home with a wound vac (Prevena). Pt has been educated about this per MARY Balderrama. Pt states to this RN CM that she understands the directions and denies questions or concerns about this. Pt denies needing to follow with the wound center at this time. Pt states that if any concerns arise about her wound that Ella told the pt to contact her. Pt also has a new Rx for Xarelto. The Rx was sent to [facility]. TC to the retail pharmacy at this time and Tae states that the pt insurance covered the total cost. Pt made aware of this and is happy. Pt denies any further home going concerns or needs at this time and is ready for discharge.
== END 2024-02-07 15:40 | disposition home or self-care (01) | DRG 253 ==
LOC: ACINP 05:37 → ICU 15:05
PROVIDERS: Anesthesiology; Physician Assistant; Admitting Provider Surgery Trauma Surgery; PCP Internal Medicine; Referring Provider Surgery Trauma Surgery; Visit Provider Surgery Trauma Surgery
PROC: 041L09L Bypass Left Femoral Artery to Popliteal Artery with Autologous Venous Tissue, Open Approach (ICD-10-PCS; principal; 2024-02-04 07:00)
DX: I70.212 Atherosclerosis of native arteries of extremities with intermittent claudication, left leg (principal); D62 Acute posthemorrhagic anemia; I70.92 Chronic total occlusion of artery of the extremities; J44.9 Chronic obstructive pulmonary disease, unspecified; I10 Essential (primary) hypertension; E78.00 Pure hypercholesterolemia, unspecified; F17.210 Nicotine dependence, cigarettes, uncomplicated; Z79.01 Long term (current) use of anticoagulants; Z79.02 Long term (current) use of antithrombotics/antiplatelets; Z79.82 Long term (current) use of aspirin; Z79.899 Other long term (current) drug therapy
CPT/HCPCS: 36415; 80048; 80061; 85014; 85018; 85025; 85027; 85347; 85610; 85730; 86850; 86900; 86901; 86920; 86922; 94640; 94762; 97162; 97166; 97802; A4648; J7030; J7040; J7120; P9016; A4216; J1940; J2405

== ENCOUNTER 2024-02-15 03:09 | Inpatient (IN) | payer MEDICARE, SELFPAY ==
[2024-02-15] VITALS (9 sets, daily range): BP systolic 106–157; BP diastolic 54–95; PULSE 82–128; RESP 16–20; TEMP 36.3–36.8; O2SAT 93–100; BMI 35.9; BMI 33.7
[2024-02-15 03:25] LABS: Absolute Lymphocyte Count 0.63 X10^3/uL (0.83-4.51); Basophil# 0.06 X10^3/uL; Basophil% 0.3 % (0-1); Eosinophil# 0.06 X10^3/uL; Eosinophils% 0.3 % (0-5); Hematocrit 30.6 % (37-47); Hemoglobin 9.2 g/dL (12.0-15.0); Lymphocyte # 0.63 X10^3/ul (0.83-4.51); Lymphocyte % 3.3 % (19-41); Mean Corp Hgb Conc 30.1 g/dL (32-36); Mean Corpuscular Hgb 26.7 pg (27.0-32.0); Mean Corpuscular Volume 88.7 fL (81-99); Mean Platelet Vol. 9.3 fl (6.2-12.0); Monocyte# 1.15 X10^3/uL; NRBC Flagged by Analyzer 0.2 % (0-5); Neutrophil # 17.04 X10^3/uL (2.7-7.7); Neutrophil % 89.4 % (47-70); Platelet Count 678 K/mm3 (150-450); RBC Distribution Width SD 59.1 fl (35.1-43.9); Red Blood Count 3.45 M/mm3 (4.2-5.4); White Blood Count 19.1 K/mm3 (4.4-11.0)
[2024-02-15 03:28] LABS: Mucous, Urine 0 SEEN /hpf (<or=2+)
[2024-02-15 03:30] LABS: Glucose, Dipstick Normal (Normal); Ketone-Dipstick 5 mg/dl (Negative); Leukocyte Esterase-Dipstick 100 /ul (Negative); Nitrite-Dipstick Negative (Negative); Occult Blood-Urine 10 /ul (Negative); Protein-Dipstick 30 mg/dl (Negative); Urine Bilirubin Dipstick Negative (Negative); Urine Urobilinogen 1 mg/dl (Normal)
[2024-02-15 03:37] LABS: Color, Urine Yellow (Yellow); Red Blood Cells-Urine 0-5 SEEN /hpf (0-5); Urine Clarity Clear (Clear); White Blood Cells 10-25 SEEN /hpf (0-5)
[2024-02-15 03:38] LABS: Bacteria RARE /hpf (None Seen); Squamous Epithelial Cells - UA 10-25 SEEN /hpf (5-10)
[2024-02-15 03:43] LABS: ALB/GLOB Ratio 0.8 RATIO (0.9-2.4); AST(SGOT) 28 U/L (15-37); Alanine Aminotransfer ALT/SGPT 21 U/L (13-56); Albumin, Serum 3.2 g/dL (3.2-5.0); Alkaline Phosphatase 79 U/L (45-117); Anion Gap 7 (5-15); BUN 20 mg/dL (7-18); BUN/Creat Ratio 23.8 RATIO (10-20); Calcium,Total 9.7 mg/dL (8.5-10.1); Chloride 103 mmol/L (98-107); Creatinine, Serum 0.84 mg/dL (0.55-1.02); EST Glomerular Filtration Rate 71 mL/min (>60); Est Glom Filt Rate - Afr Amer 86 mL/min (>60); Estimated Creatinine Clearance 60.29 ml/min; Globulin 4.2 g/dL (2.2-4.2); Glucose 158 mg/dL (74-106); Potassium 4.5 mmol/L (3.5-5.1); Protein, Total 7.4 g/dL (6.4-8.2); Sodium Level 136 mmol/L (136-145)
--- NOTE | 2024-02-15 03:51 | CT_ITS ---
INDICATION: abd pain / ? SBO EXAMINATION: CT ABDOMEN AND PELVIS WITHOUT CONTRAST - CT Abdomen And Pelvis W/O Contrast Injection TECHNIQUE: Helically acquired images were obtained of the abdomen and pelvis without oral or IV contrast. A radiation dose optimization technique was used for this scan. IV Contrast dosage and agent: None. Oral contrast: None. RADIATION DOSAGE (If Supplied By Facility): CTDIvol = ( 7.26 ) mGy, DLP = ( 763.32 ) mGycm COMPARISON: 01/18/2024 FINDINGS: LOWER CHEST: Lung bases are clear. No cardiomegaly or pericardial effusion. LIVER: The liver is normal in size, shape, and attenuation. No focal mass. GALLBLADDER AND BILIARY TREE: Cholelithiasis. No gallbladder distention or pericholecystic fluid. No intra- or extrahepatic biliary ductal dilation. PANCREAS: No focal cystic or solid mass. SPLEEN: Normal size without focal cystic or solid mass. ADRENAL GLANDS: No nodules. KIDNEYS AND URETERS: Normal renal size and position. No hydronephrosis or nephrolithiasis. Bilateral benign renal cysts. No follow-up imaging recommended. PERITONEUM: No ascites or free air. Trace pelvic free fluid. BOWEL: There are multiple mild dilated loops of small bowel , with relative point of transition in the lower abdomen along the inferior aspect of the patient''s hernia repair mesh. Previous distal ileal resection with intact anastomosis in the right hemiabdomen. An end-to-side colocolic anastomosis is present in the rectum. Scattered colonic diverticula without evidence of diverticulitis. Previous appendectomy. LYMPH NODES: No enlarged mesenteric or retroperitoneal lymph nodes. VESSELS: Aorta is non-dilated. Bilateral iliac arterial stents and left superficial femoral arterial stent. URINARY BLADDER: Unremarkable. REPRODUCTIVE ORGANS: No pelvic masses. ABDOMINAL WALL: Previous ventral abdominal wall hernia repair. There is nondescript soft tissue density associated with the left common femoral vasculature at the proximal aspect of the superficial femoral arterial stent, with adjacent surgical clips. BONES: No acute or suspicious osseous abnormality. CT/Abdomen/Pelvis without Cont IMPRESSION: * Findings suggestive of a partial small bowel obstruction with relative point of transition in the anterior lower abdomen along the inferior aspect of the patient''s hernia repair mesh. * No significant mesenteric edema to suggest vascular compromise at this time. * Previous partial ileal resection with intact anastomosis in the right hemiabdomen. * Sigmoid colectomy with end-to-side anastomosis in the pelvis. * Scattered colonic diverticula without evidence of diverticulitis. * Nonspecific soft tissue density associated with the left femoral vessels at the proximal aspect of the left superficial femoral stent, new from prior. Consider targeted ultrasound of the left angle region to exclude pseudoaneurysm. * Cholelithiasis without sonographic evidence of cholecystitis. Electronically Signed: Eloy Chase MD at 5:50 EDT ,
[2024-02-15 04:09] LABS: Lipase 30 U/L (13-75)
[2024-02-15] MEDS: fentaNYL 100 MCG/2 ML Ampul 50 MCG IV ×2 (04:16→08:39)
[2024-02-15] MEDS: Ondansetron 4 MG/2 ML Vial IV (04:17)
[2024-02-15] MEDS: 0.9% Normal Saline (1000mL) 1,000 ML 999 ML IV (04:18)
[2024-02-15 04:34] LABS: Lactic Acid 1.2 mmol/L (0.4-1.9)
--- NOTE | 2024-02-15 06:59 | ED.RN ---
Dr. Lisa in room. Pt refusing NG tube. Pt and doctor in aggreement that if pts starts to vomit again NG tube is to be placed.
--- NOTE | 2024-02-15 07:23 | EX.ED.DYSGE1 ---
HPI History of Present Illness Chief Complaint: Abd Pain Informant: patient and EMS Narrative Narrative: Patient is a 68-year-old female with past medical history of COPD hypertension hyperlipidemia and peripheral arterial disease. She also has remote history of small bowel obstruction. Patient underwent vascular surgery to her left leg roughly 2 weeks ago. She states she was doing well but around 6 PM developed generalized upper abdominal discomfort with nausea. She states he had a bowel movement earlier in the day but since the onset of pain has not passed any gas. She has concern for potential infection or obstruction because of the worsening pain and secondary to his EMS was called to bring her in for evaluation [facility] Medical History (Updated 02/15/24 @ 07:[address] Shadi Hendrickson, DO) Alcohol abuse Anxiety disorder Arthritis Asthma Back pain due to injury Chronic headaches Chronic pain Closed fracture of fifth metatarsal bone of left foot Clostridium difficile colitis COPD (chronic obstructive pulmonary disease) Dietary restriction Diverticulitis Duodenal ulcer Essential hypertension Gastric reflux H/O spleen injury High cholesterol History of cardiovascular stress test History of pelvic hematoma History of steroid therapy History of stress test History of ulceration Hyperlipemia Impaired fasting glucose Incisional hernia without mention of obstruction or gangrene Injury, spleen, with capsular tears Leg cramps Leg pain Low iron On home oxygen therapy Peptic ulcer disease Post-menopausal Pseudocyst of pancreas PVD (peripheral vascular disease) S/P arteriogram of extremity SBO (small bowel obstruction) Shortness of breath Smoker Syncope Wears dentures Wears glasses Wears hearing aid Home Medications carvedilol 25 mg tablet 25 mg PO BID HEART 05/28/19 [History Last Taken 02/04/24] spironolactone 25 mg tablet 25 mg PO DAILY BLOOD PRESSURE 05/28/19 [History Last Taken 02/03/24] alprazolam 0.5 mg tablet 0.5 mg PO TID ANXIETY 02/12/21 [History Last Taken 02/04/24] psyllium 1 packet PO DAILY PRN CONSTPATION 02/12/21 [History Last Taken Unknown] acetaminophen 500 mg tablet 1,000 mg PO Q6H PRN PAIN 07/19/22 [History Last Taken 02/03/24] pantoprazole 40 mg tablet,delayed release 40 mg PO BID GERD 30 days #60 tabs 10/12/22 [Rx Last Taken 02/04/24] guaifenesin 1,200 mg tablet, extended release 12 hr (Mucinex) 1,200 mg PO BID PRN MUCOUS 07/02/23 [History Last Taken 02/03/24] lisinopril 40 mg tablet 40 mg PO QHS BLOOD PRESSURE 07/14/23 [History Last Taken 02/03/24] aspirin 81 mg tablet,delayed release 81 mg PO BREAKFAST HEART HEALTH #0 tabs 07/19/23 [Rx Last Taken 02/04/24] gabapentin 600 mg tablet 600 mg PO 4X/DAY NERVE PAIN 11/06/23 [History Last Taken 02/04/24] tramadol 50 mg tablet 50 mg PO 4X/DAY PRN PAIN 11/06/23 [History Last Taken 02/04/24] albuterol sulfate 90 mcg/actuation aerosol inhaler (Ventolin HFA) 2 puff inhalation Q4H PRN shortness of breath or wheezing #18 grams 11/15/23 [Rx Last Taken 02/03/24] fluticasone fur. 200 mcg-umeclid 62.5 mcg-vilant 25 mcg inhalat.powder (Trelegy Ellipta) 1 inh inhalation DAILY ASTHMA #60 ea 11/15/23 [Rx Last Taken 02/04/24] clopidogrel 75 mg tablet 75 mg PO DAILY BLOOD THINNER #90 tabs 11/21/23 [Rx Last Taken 02/04/24] atorvastatin 80 mg tablet 80 mg PO QHS CHOLESTEROL 01/30/24 [History Last Taken 02/03/24] buprenorphine 5 mcg/hour weekly transdermal patch 1 patch topical QWEEK PAIN 01/30/24 [History Last Taken Unknown] multivitamin with minerals-folic acid 80 mcg chewable tablet (Centrum Adult 50 Plus) 1 tab PO DAILY SUPPLEM 01/30/24 [History Last Taken 02/03/24] docusate sodium 100 mg capsule 100 mg PO BID 7 days #14 caps 02/07/24 [Rx Last Taken Unknown] nicotine 21 mg/24 hr daily transdermal patch 21 mg transdermal DAILY #28 ea 02/07/24 [Rx Last Taken Unknown] rivaroxaban 10 mg tablet (Xarelto) 10 mg PO DAILY #30 tabs 02/07/24 [Rx Last Taken Unknown] oxycodone 5 mg tablet 5 mg PO Q6H PRN PRN Pain Score 4-10 7 days #28 tabs 02/12/24 [Rx Last Taken Unknown] Allergy/AdvReac Type Severity Reaction Status Date / Time amlodipine AdvReac Intermediate Nausea/Vom/ Verified 02/04/24 06:31 Diarrhea fentanyl AdvReac Intermediate Other Verified 02/04/24 06:31 clonidine AdvReac Mild Nausea/Vom/ Verified 02/04/24 06:31 Diarrhea oxycodone [From Percocet] AdvReac Mild Nausea/Vom/ Verified 02/04/24 06:31 Diarrhea adhesive AdvReac Rash Verified 02/04/24 06:31 codeine AdvReac Nausea Verified 02/04/24 06:31 Family History Mother Heart disease Hypertension Diabetes Sister Hypertension Brother Hypertension Sister Hypertension Cervical cancer Brother Pancreatic cancer Surgical History (Updated 01/30/24 @ 08:46 by Rose Max) H/O colostomy H/O: History of esophagogastroduodenoscopy (EGD) History of hernia repair Hx of cervical spine surgery Hx of colonoscopy Social History household members: spouse housing: house Smoking Status: Current every day smoker tobacco type: cigarettes Electronic Cigarette Use: not used second hand exposure: Yes alcohol intake: current alcohol intake frequency: a few times a week substance use type: does not use caffeine: Yes what type of physical activity do you participate in: bicycling frequency: 1-2 times per week ROS ROS ED Constitutional Constitutional ED: Denies chills or fever(s) ENT ENT ED: Denies sore throat Cardiovascular Cardiovascular: Denies chest pain Respiratory/Chest Respiratory/Chest: Reports cough; Denies dyspnea Gastrointestinal Gastrointestinal: Reports abdominal pain, constipation and nausea; Denies diarrhea or vomiting Genitourinary Genitourinary ED: Denies dysuria Musculoskeletal Musculoskeletal: Denies myalgias Integumentary Denies rash Neurologic Neurologic: Denies headache(s) Psychiatric Psychiatric: Reports anxiety Hematologic/Lymphatic Hematologic/Lymphatic: Reports easy bleeding and easy bruising EXAM Physical Exam Const Vital Signs: 02/15/24 03:09 02/15/24 05:09 02/15/24 07:00 Temperature 97.4 F L 98.0 F Temperature Source Temporal Oral Pulse Rate 123 H 119 H 82 Respiratory Rate 16 19 H 17 Blood Pressure 129/54 H 123/68 H 135/71 H Blood Pressure Mean 79 86 92 Pulse Ox 94 95 93 Oxygen Delivery Method Room Air Nasal Cannula Nasal Cannula Oxygen Flow Rate (L/min) 2 02/15/24 07:36 Temperature 98 F Temperature Source Pulse Rate 87 Respiratory Rate 17 Blood Pressure 135/71 H Blood Pressure Mean 92 Pulse Ox 93 Oxygen Delivery Method Oxygen Flow Rate (L/min) Positive well nourished, well developed and obese General Appearance ED: well developed and pallor Nutritional Appearance: obese HEENT Reports dry mucous membranes HEENT Narrative: Mucous membranes are dry and tacky without airway edema or compromise No secondary findings to suggest infection Mouth ED: Yes dry mucous membranes Mouth: dry mucous membranes Eyes PERRL and EOMs intact bilaterally General Eye ED: Yes pale conjunctiva Neck supple Neck Narrative: No nuchal rigidity or meningeal signs Resp Resp Narrative: Breath sounds are diminished throughout with faint expiratory wheeze in the bilateral bases consistent with history of COPD but no nasal flaring retractions tachypnea or accessory muscle use Cardio regular rate and regular rhythm Rate: other Other Details: Radial and carotid pulses are equal and symmetric GI GI Narrative: Abdomen is distended with hypoactive bowel sounds. There is mild diffuse pain on palpation but greatest in the midepigastric region with increased tympany at the site. No peritoneal signs. No pulsatile mass Auscultation: hypoactive bowel sounds Extremity Extremity Narrative: Patient has asymmetric edema to the left lower leg which is most likely related to her recent surgical procedure and she has surgical incisions without obvious findings suggest secondary infection Neuro oriented x3 and CN's II-XII intact bilaterally Sensorium / Orientation: alert Psych Psych Narrative: Patient has a nervous/anxious affect Skin Skin Narrative: Postsurgical changes to the left inguinal region consistent with recent surgery that are otherwise without secondary changes to suggest infection General Skin Exam: pallor MDM MDM MDM Narrative Medical decision making narrative: Patient presented to the ER tachycardic but otherwise with stable vitals. She has a history of multiple abdominal surgeries and previous SBO and she has abdominal distention and pain and report of constipation and no gas production. Differential diagnosis is for small bowel obstruction versus ileus. Secondary to his basic blood work was obtained as well as a CT scan. Labs show leukocytosis at 19 which I feel is more secondary to stress response as her lactic acid is normal and she is afebrile. CT scan did showed multiple fluid-filled loops of the intestine consistent with SBO. The case was discussed with general surgery on-call Dr. Wilson who agrees that the patient needs admitted at this time for continued observation and care An NG tube was ordered but the patient does not want one and as she is not actively vomiting general surgery is okay with holding off on placement at this time History & Record Review Discussion w/independent historian: Patient Lab Data Attestation: I reviewed the patient's lab results. Labs: Laboratory Results - last 24 hr 02/15/24 02/15/24 02/15/24 03:18 03:20 03:55 WBC 19.1 H RBC 3.45 L Hgb 9.2 L Hct 30.6 L MCV 88.7 MCH 26.7 L MCHC 30.1 L RDW Std Deviation 59.1 H RDW Coeff of Renea 19.0 H Plt Count 678 H MPV 9.3 Immature Gran % (Auto) 0.700 Neut % (Auto) 89.4 H Lymph % (Auto) 3.3 L [place] % (Auto) 6.0 Eos % (Auto) 0.3 Baso % (Auto) 0.3 Absolute Neuts (auto) 17.0 H Absolute Lymphs (auto) 0.63 L Nucleated RBC % 0.2 Sodium 136 Potassium 4.5 Chloride 103 Carbon Dioxide 26.0 Anion Gap 7 BUN 20 H Creatinine 0.84 Estim Creat Clear Calc 60.29 Est GFR (MDRD) Af Amer 86 Est GFR (MDRD) Non-Af 71 BUN/Creatinine Ratio 23.8 H Glucose 158 H Lactic Acid Calcium 9.7 Total Bilirubin 0.30 AST 28 ALT 21 Alkaline Phosphatase 79 Total Protein 7.4 Albumin 3.2 Globulin 4.2 Albumin/Globulin Ratio 0.8 L Lipase 30 Urine Color Yellow Urine Clarity Clear Urine pH 5.0 Ur Specific [place] 1.020 Urine Protein 30 H Urine Glucose (UA) Normal Urine Ketones 5 H Urine Occult Blood 10 H Urine Nitrite Negative Urine Bilirubin Negative Urine Urobilinogen 1 H Ur Leukocyte Esterase 100 H Urine RBC 0-5 SEEN Urine WBC 10-25 SEEN Ur Squamous Epith Cells 10-25 SEEN Urine Bacteria RARE Urine Mucus 0 SEEN 02/15/24 04:00 WBC RBC Hgb Hct MCV MCH MCHC RDW Std Deviation RDW Coeff of [place] Plt Count MPV Immature Gran % (Auto) Neut % (Auto) Lymph % (Auto) [place] % (Auto) Eos % (Auto) Baso % (Auto) Absolute Neuts (auto) Absolute Lymphs (auto) Nucleated RBC % Sodium Potassium Chloride Carbon Dioxide Anion Gap BUN Creatinine Estim Creat Clear Calc Est GFR (MDRD) Af Amer Est GFR (MDRD) Non-Af BUN/Creatinine Ratio Glucose Lactic Acid 1.2 Calcium Total Bilirubin AST ALT Alkaline Phosphatase Total Protein Albumin Globulin Albumin/Globulin Ratio Lipase Urine Color Urine Clarity Urine pH Ur Specific [place] Urine Protein Urine Glucose (UA) Urine Ketones Urine Occult Blood Urine Nitrite Urine Bilirubin Urine Urobilinogen Ur Leukocyte Esterase Urine RBC Urine WBC Ur Squamous Epith Cells Urine Bacteria Urine Mucus Radiography Diagnostic Testing: Clinical Impression(s) from Imaging Studies Abdomen/Pelvis CT 02/15/24 03:51 IMPRESSION: * Findings suggestive of a partial small bowel obstruction with relative point of transition in the anterior lower abdomen along the inferior aspect of the patient''s hernia repair mesh. * No significant mesenteric edema to suggest vascular compromise at this time. * Previous partial ileal resection with intact anastomosis in the right hemiabdomen. * Sigmoid colectomy with end-to-side anastomosis in the pelvis. * Scattered colonic diverticula without evidence of diverticulitis. * Nonspecific soft tissue density associated with the left femoral vessels at the proximal aspect of the left superficial femoral stent, new from prior. Consider targeted ultrasound of the left angle region to exclude pseudoaneurysm. * Cholelithiasis without sonographic evidence of cholecystitis. Electronically Signed: Eloy Chase MD at 5:50 EDT Reading Location ID and State: [address] [place] [address] Tel , Service support , Management Discussion w/another healthcare provider: Criminal Lawyer Discharge Plan Dx/Rx/DC Orders Clinical Impression: SBO (small bowel obstruction), PAOD (peripheral arterial occlusive disease), COPD (chronic obstructive pulmonary disease), Hypertension Disposition Disposition: Acute Care Hospital [facility]
[2024-02-15] MEDS: Morphine 2 MG/ML Syringe IV ×3 (11:10→20:22)
[2024-02-15] MEDS: 0.9% Saline Lock 10 ML Syringe IV ×2 (11:10→14:42)
[2024-02-15] MEDS: 0.9% Normal Saline (1000mL) 1,000 ML 100 ML IV ×2 (11:10→21:08)
--- NOTE | 2024-02-15 12:17 | HP.PCM.SX_ITS ---
HPI - General General Date of Admission: 02/15/24 HPI Narrative BAHMAN MICHELE, is a 68 F who presents with nausea and vomiting that started yesterday evening. She says she vomited yesterday at 6 PM but has not vomited since. She is still having abdominal pain. She says the pain is in her lower abdomen. Patient has significant medical history. The patient recently had left femoropopliteal bypass. She is currently on Xarelto and Plavix and aspirin. She has a history of colectomy and large ventral hernia repair. Subsequently she had a small bowel obstruction and had small bowel resection by Dr. Covarrubias. She reports the pain is in the lower abdomen and says she had a bowel movement and passed gas yesterday. [facility] Medical History Alcohol abuse Anxiety disorder Arthritis Asthma Back pain due to injury Chronic headaches Chronic pain Closed fracture of fifth metatarsal bone of left foot Clostridium difficile colitis COPD (chronic obstructive pulmonary disease) Dietary restriction Diverticulitis Duodenal ulcer Essential hypertension Gastric reflux H/O spleen injury High cholesterol History of cardiovascular stress test History of pelvic hematoma History of steroid therapy History of stress test History of ulceration Hyperlipemia Impaired fasting glucose Incisional hernia without mention of obstruction or gangrene Injury, spleen, with capsular tears Leg cramps Leg pain Low iron On home oxygen therapy Peptic ulcer disease Post-menopausal Pseudocyst of pancreas PVD (peripheral vascular disease) S/P arteriogram of extremity SBO (small bowel obstruction) Shortness of breath Smoker Syncope Wears dentures Wears glasses Wears hearing aid Home Medications carvedilol 25 mg tablet 25 mg PO BID HEART 05/28/19 [History Last Taken 02/04/24] spironolactone 25 mg tablet 25 mg PO DAILY BLOOD PRESSURE 05/28/19 [History Last Taken 02/03/24] alprazolam 0.5 mg tablet 0.5 mg PO TID ANXIETY 02/12/21 [History Last Taken 02/04/24] psyllium 1 packet PO DAILY PRN CONSTPATION 02/12/21 [History Last Taken Unknown] acetaminophen 500 mg tablet 1,000 mg PO Q6H PRN PAIN 07/19/22 [History Last Taken 02/03/24] pantoprazole 40 mg tablet,delayed release 40 mg PO BID GERD 30 days #60 tabs 10/12/22 [Rx Last Taken 02/04/24] guaifenesin 1,200 mg tablet, extended release 12 hr (Mucinex) 1,200 mg PO BID PRN MUCOUS 07/02/23 [History Last Taken 02/03/24] lisinopril 40 mg tablet 40 mg PO QHS BLOOD PRESSURE 07/14/23 [History Last Taken 02/03/24] aspirin 81 mg tablet,delayed release 81 mg PO BREAKFAST HEART HEALTH #0 tabs 07/19/23 [Rx Last Taken 02/04/24] gabapentin 600 mg tablet 600 mg PO 4X/DAY NERVE PAIN 11/06/23 [History Last Taken 02/04/24] tramadol 50 mg tablet 50 mg PO 4X/DAY PRN PAIN 11/06/23 [History Last Taken 02/04/24] albuterol sulfate 90 mcg/actuation aerosol inhaler (Ventolin HFA) 2 puff inhalation Q4H PRN shortness of breath or wheezing #18 grams 11/15/23 [Rx Last Taken 02/03/24] fluticasone fur. 200 mcg-umeclid 62.5 mcg-vilant 25 mcg inhalat.powder (Trelegy Ellipta) 1 inh inhalation DAILY ASTHMA #60 ea 11/15/23 [Rx Last Taken 02/04/24] clopidogrel 75 mg tablet 75 mg PO DAILY BLOOD THINNER #90 tabs 11/21/23 [Rx Last Taken 02/04/24] atorvastatin 80 mg tablet 80 mg PO QHS CHOLESTEROL 01/30/24 [History Last Taken 02/03/24] buprenorphine 5 mcg/hour weekly transdermal patch 1 patch topical QWEEK PAIN 01/30/24 [History Last Taken Unknown] multivitamin with minerals-folic acid 80 mcg chewable tablet (Centrum Adult 50 Plus) 1 tab PO DAILY SUPPLEM 01/30/24 [History Last Taken 02/03/24] docusate sodium 100 mg capsule 100 mg PO BID 7 days #14 caps 02/07/24 [Rx Last Taken Unknown] nicotine 21 mg/24 hr daily transdermal patch 21 mg transdermal DAILY #28 ea 02/07/24 [Rx Last Taken Unknown] rivaroxaban 10 mg tablet (Xarelto) 10 mg PO DAILY #30 tabs 02/07/24 [Rx Last Taken Unknown] oxycodone 5 mg tablet 5 mg PO Q6H PRN PRN Pain Score 4-10 7 days #28 tabs 02/12/24 [Rx Last Taken Unknown] Allergy/AdvReac Type Severity Reaction Status Date / Time amlodipine AdvReac Intermediate Nausea/Vom/ Verified 02/04/24 06:31 Diarrhea fentanyl AdvReac Intermediate Other Verified 02/04/24 06:31 clonidine AdvReac Mild Nausea/Vom/ Verified 02/04/24 06:31 Diarrhea oxycodone [From Percocet] AdvReac Mild Nausea/Vom/ Verified 02/04/24 06:31 Diarrhea adhesive AdvReac Rash Verified 02/04/24 06:31 codeine AdvReac Nausea Verified 02/04/24 06:31 Family History Mother Heart disease Hypertension Diabetes Sister Hypertension Brother Hypertension Sister Hypertension Cervical cancer Brother Pancreatic cancer Surgical History H/O colostomy H/O: History of esophagogastroduodenoscopy (EGD) History of hernia repair Hx of cervical spine surgery Hx of colonoscopy Social History household members: spouse housing: house Smoking Status: Current every day smoker tobacco type: cigarettes Electronic Cigarette Use: not used second hand exposure: Yes alcohol intake: current alcohol intake frequency: a few times a week substance use type: does not use caffeine: Yes what type of physical activity do you participate in: bicycling frequency: 1-2 times per week ROS Constitutional Constitutional: Denies anorexia, chills or fatigue Eyes Eyes: Denies blurry vision ENT HEENT: Denies abnormal hearing Cardiovascular Cardiovascular: Denies chest pain Respiratory/Chest Respiratory/Chest: Denies cough or dyspnea on exertion Gastrointestinal Gastrointestinal: Reports abdominal pain, nausea and vomiting; Denies constipat ion Genitourinary Genitourinary: Denies change in urinary stream Integumentary Integumentary: Denies jaundice Neurologic Neurologic: Denies abnormal gait Endocrine Endocrinology: Denies flushing Vital Signs Vital Signs Vital Signs: 02/15/24 03:09 02/15/24 05:09 02/15/24 07:00 Temperature 97.4 F L 98.0 F Temperature Source Temporal Oral Pulse Rate 123 H 119 H 82 Respiratory Rate 16 19 H 17 Respiratory Effort Respiratory Depth Respiratory Pattern Blood Pressure 129/54 H 123/68 H 135/71 H Blood Pressure Mean 79 86 92 Blood Pressure Source Blood Pressure Position Blood Pressure Location Pulse Ox 94 95 93 Oxygen Delivery Method Room Air Nasal Cannula Nasal Cannula Oxygen Flow Rate (L/min) 2 02/15/24 07:36 02/15/24 09:00 02/15/24 10:40 Temperature 98 F 98.3 F Temperature Source Oral Pulse Rate 87 128 H 116 H Respiratory Rate 17 16 16 Respiratory Effort Respiratory Depth Respiratory Pattern Blood Pressure 135/71 H 117/80 106/73 Blood Pressure Mean 92 92 84 Blood Pressure Source Monitor Blood Pressure Position Sitting Blood Pressure Location Right Arm Pulse Ox 93 94 95 Oxygen Delivery Method Nasal Cannula Room Air Oxygen Flow Rate (L/min) 02/15/24 11:18 Temperature Temperature Source Pulse Rate Respiratory Rate Respiratory Effort Normal Non-Labored Respiratory Depth Normal Respiratory Pattern Normal Blood Pressure Blood Pressure Mean Blood Pressure Source Blood Pressure Position Blood Pressure Location Pulse Ox Oxygen Delivery Method Room Air Oxygen Flow Rate (L/min) Weight Weight: 167 lb 1.766 oz Body Mass Index (BMI) 33.7 Physical Exam Const oriented x3 and no apparent distress Resp normal respiratory effort GI soft to palpation Palpation: tender LLQ and RLQ Results Lab / Micro Data 02/15/24 03:18 02/15/24 03:18 Labs: Laboratory Results - last 24 hr 02/15/24 03:18: WBC 19.1 H, RBC 3.45 L, Hgb 9.2 L, Hct 30.6 L, MCV 88.7, MCH 26.7 L, MCHC 30.1 L, RDW Std Deviation 59.1 H, RDW Coeff of Renea 19.0 H, Plt Count 678 H, MPV 9.3, Immature Gran % (Auto) 0.700, Neut % (Auto) 89.4 H, Lymph % (Auto) 3.3 L, [place] % (Auto) 6.0, Eos % (Auto) 0.3, Baso % (Auto) 0.3, Absolute Neuts (auto) 17.0 H, Absolute Lymphs (auto) 0.63 L, Nucleated RBC % 0.2, Sodium 136, Potassium 4.5, Chloride 103, Carbon Dioxide 26.0, Anion Gap 7, BUN 20 H, Creatinine 0.84, Estim Creat Clear Calc 60.29, Est GFR (MDRD) Af Amer 86, Est GFR (MDRD) Non-Af 71, BUN/Creatinine Ratio 23.8 H, Glucose 158 H, Calcium 9.7, Total Bilirubin 0.30, AST 28, ALT 21, Alkaline Phosphatase 79, Total Protein 7.4, Albumin 3.2, Globulin 4.2, Albumin/Globulin Ratio 0.8 L 02/15/24 03:20: Urine Color Yellow, Urine Clarity Clear, Urine pH 5.0, Ur Specif ic [place] 1.020, Urine Protein 30 H, Urine Glucose (UA) Normal, Urine Ketones 5 H, Urine Occult Blood 10 H, Urine Nitrite Negative, Urine Bilirubin Negative, Urine Urobilinogen 1 H, Ur Leukocyte Esterase 100 H, Urine RBC 0-5 SEEN, Urine WBC 10-25 SEEN, Ur Squamous Epith Cells 10-25 SEEN, Urine Bacteria RARE, Urine Mucus 0 SEEN 02/15/24 03:55: Lipase 30 02/15/24 04:00: Lactic Acid 1.2 Imaging Radiology Impression Abdomen/Pelvis CT 02/15/24 03:51 IMPRESSION: * Findings suggestive of a partial small bowel obstruction with relative point of transition in the anterior lower abdomen along the inferior aspect of the patient''s hernia repair mesh. * No significant mesenteric edema to suggest vascular compromise at this time. * Previous partial ileal resection with intact anastomosis in the right hemiabdomen. * Sigmoid colectomy with end-to-side anastomosis in the pelvis. * Scattered colonic diverticula without evidence of diverticulitis. * Nonspecific soft tissue density associated with the left femoral vessels at the proximal aspect of the left superficial femoral stent, new from prior. Consider targeted ultrasound of the left angle region to exclude pseudoaneurysm. * Cholelithiasis without sonographic evidence of cholecystitis. Electronically Signed: Eloy Chase MD at 5:50 EDT , Assessment & Plan Assessment/Plan (1) SBO (small bowel obstruction): PLAN: The patient was admitted with small bowel obstruction. The transition zone is suspected at the inferior portion of the mesh. The patient has not had any nausea or vomiting since 6 PM last night but she still complaining of pain. She was very reluctant to have the NG tube placed. I will hold off for now and if she has any nausea or vomiting I will insist an NG be placed. I reviewed her CT scan. Patient reports that she had bowel movement yesterday. I will continue to observe and give IV fluids and repeat KUB in the morning. If small bowel obstruction does not resolve by Sunday I will take her surgery. I have currently held her anticoagulation anticipating surgery. I consulted Dr. Lopez who recently operated on her and had her on blood thinners. If she needs to continue anticoagulation we could start a heparin drip and stop 6 hours prior to any procedure that would be necessary. Matt Lisa MD Pager: [facility] [address] [place] [address], [address] [place] [address] Office:
--- NOTE | 2024-02-15 14:10 | CON.PCM.SX_ITS ---
Assessment & Plan Assessment/Plan (1) Atherosclerosis of left lower extremity with intermittent claudication: (2) SBO (small bowel obstruction): PLAN: Plan Plan for anticoagulation is to continue ASA 81mg daily but to hold Xarelto and Plavix. These will be restarted when possible at Dr. Lisa's discretion following any potential surgical intervention. The consultation is appreciated and will continue to follow. HPI Consult Data Date of Consult: 02/15/24 HPI Narrative HPI Narrative: BAHMAN MICHELE, is a 68 F who presented to the ER early this morning with abdominal pain. She reports that last night she ate dinner and shortly after developed significant abdominal pain. She also had a lot of nausea and a couple episodes of vomiting yesterday evening though none since. She had a small BM early this morning but since then has not had any further BM or flatus. She had CT which was suggestive of SBO for which she is admitted by Dr. Lisa. Currently, she is NPO and on IVF with plans to observe and surgical intervention if any worsening/no improvement. We are consulted for recommendations regarding her anticoagulation given she is s/p L femoral-below knee popliteal bypass with reversed GSV on 02/04/24. She has been prescribed Xarelto 20mg daily, Plavix 75mg daily, and ASA 81mg daily. Since the surgery, she has had significant improvement in her LLE claudication. She has had a lot of swelling in her LLE secondary to reperfusion but feels this is starting to lessen. She has not noticed any issues at any of her incision sites. She does still report significant lower abdominal pain though it has improved with morphine administration. [facility] Medical History Alcohol abuse Anxiety disorder Arthritis Asthma Back pain due to injury Chronic headaches Chronic pain Closed fracture of fifth metatarsal bone of left foot Clostridium difficile colitis COPD (chronic obstructive pulmonary disease) Dietary restriction Diverticulitis Duodenal ulcer Essential hypertension Gastric reflux H/O spleen injury High cholesterol History of cardiovascular stress test History of pelvic hematoma History of steroid therapy History of stress test History of ulceration Hyperlipemia Impaired fasting glucose Incisional hernia without mention of obstruction or gangrene Injury, spleen, with capsular tears Leg cramps Leg pain Low iron On home oxygen therapy Peptic ulcer disease Post-menopausal Pseudocyst of pancreas PVD (peripheral vascular disease) S/P arteriogram of extremity SBO (small bowel obstruction) Shortness of breath Smoker Syncope Wears dentures Wears glasses Wears hearing aid Home Medications carvedilol 25 mg tablet 25 mg PO BID HEART 05/28/19 [History Last Taken 02/04/24] spironolactone 25 mg tablet 25 mg PO DAILY BLOOD PRESSURE 05/28/19 [History Last Taken 02/03/24] alprazolam 0.5 mg tablet 0.5 mg PO TID ANXIETY 02/12/21 [History Last Taken 02/04/24] psyllium 1 packet PO DAILY PRN CONSTPATION 02/12/21 [History Last Taken Unknown] acetaminophen 500 mg tablet 1,000 mg PO Q6H PRN PAIN 07/19/22 [History Last Taken 02/03/24] pantoprazole 40 mg tablet,delayed release 40 mg PO BID GERD 30 days #60 tabs 10/12/22 [Rx Last Taken 02/04/24] guaifenesin 1,200 mg tablet, extended release 12 hr (Mucinex) 1,200 mg PO BID PRN MUCOUS 07/02/23 [History Last Taken 02/03/24] lisinopril 40 mg tablet 40 mg PO QHS BLOOD PRESSURE 07/14/23 [History Last Taken 02/03/24] aspirin 81 mg tablet,delayed release 81 mg PO BREAKFAST HEART HEALTH #0 tabs 07/19/23 [Rx Last Taken 02/04/24] gabapentin 600 mg tablet 600 mg PO 4X/DAY NERVE PAIN 11/06/23 [History Last Taken 02/04/24] tramadol 50 mg tablet 50 mg PO 4X/DAY PRN PAIN 11/06/23 [History Last Taken 02/04/24] albuterol sulfate 90 mcg/actuation aerosol inhaler (Ventolin HFA) 2 puff inhalation Q4H PRN shortness of breath or wheezing #18 grams 11/15/23 [Rx Last Taken 02/03/24] fluticasone fur. 200 mcg-umeclid 62.5 mcg-vilant 25 mcg inhalat.powder (Trelegy Ellipta) 1 inh inhalation DAILY ASTHMA #60 ea 11/15/23 [Rx Last Taken 02/04/24] clopidogrel 75 mg tablet 75 mg PO DAILY BLOOD THINNER #90 tabs 11/21/23 [Rx Last Taken 02/04/24] atorvastatin 80 mg tablet 80 mg PO QHS CHOLESTEROL 01/30/24 [History Last Taken 02/03/24] buprenorphine 5 mcg/hour weekly transdermal patch 1 patch topical QWEEK PAIN 01/30/24 [History Last Taken Unknown] multivitamin with minerals-folic acid 80 mcg chewable tablet (Centrum Adult 50 Plus) 1 tab PO DAILY SUPPLEM 01/30/24 [History Last Taken 02/03/24] docusate sodium 100 mg capsule 100 mg PO BID stool softner 7 days #14 caps 02/07/24 [Rx Last Taken Unknown] nicotine 21 mg/24 hr daily transdermal patch 21 mg transdermal DAILY stop smoking #28 ea 02/07/24 [Rx Last Taken Unknown] rivaroxaban 10 mg tablet (Xarelto) 10 mg PO DAILY blood thinner #30 tabs 02/07/24 [Rx Last Taken Unknown] oxycodone 5 mg tablet 5 mg PO Q6H PRN PRN Pain Score 4-10 7 days #28 tabs 02/12/24 [Rx Last Taken Unknown] Allergy/AdvReac Type Severity Reaction Status Date / Time amlodipine AdvReac Intermediate Nausea/Vom/ Verified 02/04/24 06:31 Diarrhea fentanyl AdvReac Intermediate Other Verified 02/04/24 06:31 clonidine AdvReac Mild Nausea/Vom/ Verified 02/04/24 06:31 Diarrhea oxycodone [From Percocet] AdvReac Mild Nausea/Vom/ Verified 02/04/24 06:31 Diarrhea adhesive AdvReac Rash Verified 02/04/24 06:31 codeine AdvReac Nausea Verified 02/04/24 06:31 Family History Mother Heart disease Hypertension Diabetes Sister Hypertension Brother Hypertension Sister Hypertension Cervical cancer Brother Pancreatic cancer Surgical History H/O colostomy H/O: History of esophagogastroduodenoscopy (EGD) History of hernia repair Hx of cervical spine surgery Hx of colonoscopy Social History household members: spouse housing: house Smoking Status: Current every day smoker tobacco type: cigarettes Electronic Cigarette Use: not used second hand exposure: Yes alcohol intake: current alcohol intake frequency: a few times a week substance use type: does not use caffeine: Yes what type of physical activity do you participate in: bicycling frequency: 1-2 times per week Physical Exam Const alert, oriented x3 and no apparent distress General Appearance: cooperative HEENT normocephalic, head/scalp atraumatic, hearing grossly normal bilaterally, external ears normal and external nose normal Eyes EOMs intact bilaterally General Eye: normal appearance of both eyes Neck General: normal visual inspection and trachea midline Resp normal respiratory effort, normal air movement, no retractions and no use of accessory muscles Effort and Inspection: able to speak in complete sentences; Negative for labored, grunting, stridor or audible wheezes Cardio regular rate and regular rhythm Extremity Extremity Narrative: L PT with biphasic doppler signal, L DP with strong monophasic doppler signal. L foot is warm and pink. LLE with 1+ edema below the knee. Calf is nontender to palpation. L groin incision site and L medial leg incision sites are all well-healing without any dehiscence, erythema, drainage. Skin no rashes or lesions noted Neuro oriented x3, CN's II-XII intact bilaterally, moves all extremities, no focal motor deficits and no sensory deficits noted Speech: speech normal Psych mental status grossly normal Appearance: grossly normal Attitude: calm and engaged Activity / Motor Behavior: appropriate eye contact Speech: normal speech Mood & Affect: euthymic mood Judgement: judgement good Lab / Micro Data 02/15/24 03:18 02/15/24 03:18 Labs: Laboratory Results - last 24 hr 02/15/24 03:18: WBC 19.1 H, RBC 3.45 L, Hgb 9.2 L, Hct 30.6 L, MCV 88.7, MCH 26.7 L, MCHC 30.1 L, RDW Std Deviation 59.1 H, RDW Coeff of Renea 19.0 H, Plt Count 678 H, MPV 9.3, Immature Gran % (Auto) 0.700, Neut % (Auto) 89.4 H, Lymph % (Auto) 3.3 L, [place] % (Auto) 6.0, Eos % (Auto) 0.3, Baso % (Auto) 0.3, Absolute Neuts (auto) 17.0 H, Absolute Lymphs (auto) 0.63 L, Nucleated RBC % 0.2, Sodium 136, Potassium 4.5, Chloride 103, Carbon Dioxide 26.0, Anion Gap 7, BUN 20 H, Creatinine 0.84, Estim Creat Clear Calc 60.29, Est GFR (MDRD) Af Amer 86, Est GFR (MDRD) Non-Af 71, BUN/Creatinine Ratio 23.8 H, Glucose 158 H, Calcium 9.7, Total Bilirubin 0.30, AST 28, ALT 21, Alkaline Phosphatase 79, Total Protein 7.4, Albumin 3.2, Globulin 4.2, Albumin/Globulin Ratio 0.8 L 02/15/24 03:20: Urine Color Yellow, Urine Clarity Clear, Urine pH 5.0, Ur Specific [place] 1.020, Urine Protein 30 H, Urine Glucose (UA) Normal, Urine Ketones 5 H, Urine Occult Blood 10 H, Urine Nitrite Negative, Urine Bilirubin Negative, Urine Urobilinogen 1 H, Ur Leukocyte Esterase 100 H, Urine RBC 0-5 SEEN, Urine WBC 10-25 SEEN, Ur Squamous Epith Cells 10-25 SEEN, Urine Bacteria RARE, Urine Mucus 0 SEEN 02/15/24 03:55: Lipase 30 02/15/24 04:00: Lactic Acid 1.2 Imaging Radiology Impression Abdomen/Pelvis CT 02/15/24 03:51 IMPRESSION: * Findings suggestive of a partial small bowel obstruction with relative point of transition in the anterior lower abdomen along the inferior aspect of the patient''s hernia repair mesh. * No significant mesenteric edema to suggest vascular compromise at this time. * Previous partial ileal resection with intact anastomosis in the right hemiabdomen. * Sigmoid colectomy with end-to-side anastomosis in the pelvis. * Scattered colonic diverticula without evidence of diverticulitis. * Nonspecific soft tissue density associated with the left femoral vessels at the proximal aspect of the left superficial femoral stent, new from prior. Consider targeted ultrasound of the left angle region to exclude pseudoaneurysm. * Cholelithiasis without sonographic evidence of cholecystitis. Electronically Signed: Eloy Chase MD at 5:50 EDT ,
--- NOTE | 2024-02-15 14:55 | CASEMGMT ---
MARGO VALLEJO chart review: Patient was admitted 02/03-02/07/24 for left femoral below the knee popliteal bypass with reversed GSV. See RN CM assessment from 02/05/24. Patient was discharged to home with family support and follow-up plans in place. Patient returned to [facility] ED for abdominal pain and was amitted for small bowel obstruction. Patient had history of ventral hernia repair and colectomy. Surgery consulted and will monitor patient for improvement with possible surgery on Sunday if no improvement seen. MARGO CM in to discuss readmission and needs at discharge. Patient states she was taking medications as prescribed. Patient had PCP appt scheduled for 02/14 but returned to ED prior to appointment. Patient denies needs or help at discharge. Patient to discharge home with family support. CM to follow this patient and plan for a safe discharge.
[2024-02-15] MEDS: Carvedilol 25 MG Tablet PO (17:20)
[2024-02-15] MEDS: Gabapentin 600 MG Tablet PO ×2 (17:20→21:08)
[2024-02-15] MEDS: Budesonide Respules 0.5 MG/2 ML AMPUL.NEB. INHALATION (20:11)
[2024-02-15] MEDS: Ipratropium/Albuterol Sulfate 3 ML AMPUL.NEB INHALATION (20:11)
[2024-02-15] MEDS: ALPRAZolam 0.5 MG Tablet PO (21:08)
[2024-02-15] MEDS: Lisinopril 40 MG Tablet PO (21:10)
[2024-02-15] MEDS: Atorvastatin Calcium 80 MG Tablet PO (21:10)
[2024-02-16 03:17] VITALS: BP 102/63; PULSE 100; RESP 18; TEMP 36.6; O2SAT 93
[2024-02-16] MEDS: Morphine 2 MG/ML Syringe IV ×5 (03:21→22:24)
--- NOTE | 2024-02-16 05:15 | RAD_ITS ---
EXAM: XR ABDOMEN, 1 VIEW CLINICAL INDICATION: sbo TECHNIQUE: Frontal supine view of the abdomen/pelvis. COMPARISON: CT at 5:03 AM yesterday mention partial small bowel obstruction, ileal anastomosis, sigmoid anastomosis, right common iliac and external iliac stents in left external iliac stent. Increased soft tissue density in the left groin around the expected region of the common femoral artery and vein and proximal to stent in the left SFA. FINDINGS: LOWER THORAX: No acute pathology. GASTROINTESTINAL TRACT: There are mildly dilated small bowel loops of at least 4.3 cm, suspicion of small bowel obstruction. The colon is not completely decompressed, mild gas and stool in the transverse or sigmoid colon. No significant gas over the rectum. ORGANS: Unremarkable as visualized. No organomegaly. No abnormal calcifications. BONES/JOINTS: No acute pathology. SOFT TISSUES: No acute pathology. VASCULATURE: There are multiple metallic mesh stents over the iliac vessels and left superficial femoral artery. LYMPH NODES: There are extensive postoperative changes apparently due to large ventral hernia repair. Small chain of metallic apparent sutures projecting over the stomach or GE junction. RAD/Abdomen Single View (Portable) IMPRESSION: 1. Similar degree of small bowel distention with and mild decreased colonic contents, presumed small bowel obstruction. 2. No visible pneumatosis. 3. No visible free intraperitoneal air on limited supine exams. Electronically Signed: Kristie Jerez MD at 7:37 EDT ,
[2024-02-16] MEDS: ALPRAZolam 0.5 MG Tablet PO ×3 (05:18→21:12)
[2024-02-16] MEDS: 0.9% Normal Saline (1000mL) 1,000 ML 100 ML IV ×2 (06:04→17:04)
[2024-02-16 07:24] VITALS: PULSE 98; RESP 16
[2024-02-16] MEDS: Budesonide Respules 0.5 MG/2 ML AMPUL.NEB. INHALATION ×2 (07:24→19:25)
[2024-02-16] MEDS: Ipratropium/Albuterol Sulfate 3 ML AMPUL.NEB INHALATION ×2 (07:24→19:25)
[2024-02-16 08:03] LABS: Absolute Lymphocyte Count 1.72 X10^3/uL (0.83-4.51); Absolute Neutrophil Count 8.5 X10^3/uL (2.0-7.7); Basophil# 0.04 X10^3/uL; Basophil% 0.3 % (0-1); Eosinophil# 0.23 X10^3/uL; Hematocrit 25.1 % (37-47); Hemoglobin 7.4 g/dL (12.0-15.0); Lymphocyte # 1.72 X10^3/ul (0.83-4.51); Mean Corp Hgb Conc 29.5 g/dL (32-36); Mean Corpuscular Hgb 27.1 pg (27.0-32.0); Mean Corpuscular Volume 91.9 fL (81-99); Mean Platelet Vol. 9.5 fl (6.2-12.0); Monocyte# 0.85 X10^3/uL; Monocyte% 7.4 % (0-10); NRBC Flagged by Analyzer 0.2 % (0-5); Neutrophil # 8.52 X10^3/uL (2.7-7.7); Neutrophil % 74.6 % (47-70); Platelet Count 543 K/mm3 (150-450); RBC Distribution Width CV 19.5 % (11.6-14.6); RBC Distribution Width SD 63.6 fl (35.1-43.9); Red Blood Count 2.73 M/mm3 (4.2-5.4); White Blood Count 11.4 K/mm3 (4.4-11.0)
[2024-02-16 08:54] VITALS: BP 116/79; PULSE 106; RESP 18; TEMP 36.7; O2SAT 93
[2024-02-16] MEDS: Gabapentin 600 MG Tablet PO ×4 (08:57→21:12)
[2024-02-16] MEDS: Carvedilol 25 MG Tablet PO ×2 (08:57→17:08)
[2024-02-16] MEDS: Aspirin E.C. 81 MG Tablet PO (08:57)
[2024-02-16] MEDS: 0.9% Saline Lock 10 ML Syringe IV ×2 (08:59→22:28)
[2024-02-16 09:38] LABS: Anion Gap 5 (5-15); BUN 9 mg/dL (7-18); BUN/Creat Ratio 12.9 RATIO (10-20); Calcium,Total 8.3 mg/dL (8.5-10.1); Chloride 106 mmol/L (98-107); EST Glomerular Filtration Rate 89 mL/min (>60); Est Glom Filt Rate - Afr Amer 107 mL/min (>60); Estimated Creatinine Clearance 61.22 ml/min; Glucose 101 mg/dL (74-106); Sodium Level 135 mmol/L (136-145)
--- NOTE | 2024-02-16 10:05 | RAD_ITS ---
INDICATION: f/u SBO -- Films: Immediately post GG, 3h, 6 h, 12 h, and 24h EXAMINATION/TECHNIQUE: Nonspecific volume and type enteric contrast was administered orally to the patient by on-site provider. Total Fluoroscopic Time: 0 seconds AND number of Fluoroscopic Images: 3 COMPARISON: February 16, 2024. at 0519 hours FINDINGS: Intermediate postcontrast image demonstrates contrast filled stomach with SPECT folds, extending into the duodenum and proximal jejunum with normal mucosal appearance. On 3.5 hours there is diffuse opacification of small bowel which is prominent in caliber. Oral contrast also extends into and throughout colon to rectum. Anterior abdominal wall repair. Left upper quadrant vascular coils present. RAD/Small Bowel Series Only IMPRESSION: Normal progression of enteric contrast within bowel. No evidence of complete bowel obstruction. Mild mid small bowel distention persists which can be recurrent from peristalsis or secondary to ileus. Electronically Signed: Farzad Gautam MD at 2:18 EDT ,
--- NOTE | 2024-02-16 10:06 | PN.SURG_ITS ---
Subjective Subjective Patient seen and examined during AM rounds. She is found sitting out of bed in the chair. She reports improvements in her abdominal discomfort and that she had a bowel movement since her admission. She is having ongoing flatus and expresses an appetite beyond her currently ordered clear liquid diet. She does share that she had some uncomfortable bloating after a diet Coke yesterday and has tried to abstain from carbonation since. Objective Data Objective Data Vital Signs: Vital Signs Temp Pulse Resp BP Pulse Ox O2 Del Method O2 Flow Rate 98.1 F 106 H 18 116/79 93 Room Air 2 02/16/24 08:54 02/16/24 08:54 02/16/24 08:54 02/16/24 08:54 02/16/24 08:54 02/16/24 09:10 02/15/24 05:09 Oxygen Flow Rate (L/min) 2 Oxygen Delivery Method Room Air Weight: 167 lb 1.766 oz Body Mass Index (BMI) 33.7 Intake & Output: Intake and Output for Last 24 Hours 02/14/24 02/15/24 02/16/24 23:59 23:59 23:59 Intake Total 893.33 / 893.33 Balance 893.33 / 893.33 Lab / Micro Data 02/16/24 06:16 02/16/24 09:17 Labs: Laboratory Results - last 24 hr 02/16/24 06:16: WBC 11.4 H, RBC 2.73 L, Hgb 7.4 L, Hct 25.1 L, MCV 91.9, MCH 27.1, MCHC 29.5 L, RDW Std Deviation 63.6 H, RDW Coeff of Renea 19.5 H, Plt Count 543 H, MPV 9.5, Immature Gran % (Auto) 0.700, Neut % (Auto) 74.6 H, Lymph % (Auto) 15.0 L, [place] % (Auto) 7.4, Eos % (Auto) 2.0, Baso % (Auto) 0.3, Absolute Neuts (auto) 8.5 H, Absolute Lymphs (auto) 1.72, Nucleated RBC % 0.2 02/16/24 06:54: Sodium Cancelled, Potassium Cancelled, Chloride Cancelled, Carbo n Dioxide Cancelled, Anion Gap Cancelled, BUN Cancelled, Creatinine Cancelled, Estim Creat Clear Calc Cancelled, Est GFR (MDRD) Af Amer Cancelled, Est GFR (MDRD) Non-Af Cancelled, BUN/Creatinine Ratio Cancelled, Glucose Cancelled, Calcium Cancelled 02/16/24 09:17: Sodium 135 L, Potassium 4.0, Chloride 106, Carbon Dioxide 24.0, Anion Gap 5, BUN 9, Creatinine 0.70, Estim Creat Clear Calc 61.22, Est GFR (MDRD) Af Amer 107, Est GFR (MDRD) Non-Af 89, BUN/Creatinine Ratio 12.9, Glucose 101, Calcium 8.3 L Radiography Diagnostic Testing: Radiology Impression KUB X-Ray 02/16/24 05:15 IMPRESSION: 1. Similar degree of small bowel distention with and mild decreased colonic contents, presumed small bowel obstruction. 2. No visible pneumatosis. 3. No visible free intraperitoneal air on limited supine exams. Electronically Signed: Kristie Jerez MD at 7:37 EDT , Physical Exam Const oriented x3 and no apparent distress Resp normal respiratory effort GI GI Narrative: Patient's abdomen nondistended, soft, nontender to palpation x 4 quadrants Assessment & Plan Assessment/Plan (1) SBO (small bowel obstruction): PLAN: The patient was admitted with small bowel obstruction. The transition zone is suspected at the inferior portion of the mesh. She is now hospital day 2. She shares that she did have a bowel movement following admission yesterday and has had ongoing flatus as well as tolerance of her liquid diet. She expresses an appetite but KUB this morning showed persistent dilation of her small bowel. Therefore, I have recommended that she undergo a small bowel follow-through via orally ingested contrast. This rationale was further detailed and patient is receptive?particularly in the name of avoiding any surgery. To this latter end we will continue to hold Plavix and Eliquis as agreed upon with vascular surgery. Continue clear liquid diet without carbonation for now. Will follow-up imaging study results. Melquiades Caraballo MD General Surgery Endocrine Surgery Pager: [facility] [address] [place] [address], [facility], [address] [place] [address] Office: [phone] Charges/Coding Visit Charges Inpatient E&M: 72956 Subs Hosp L2
[2024-02-16 15:32] VITALS: BP 125/79; PULSE 99; RESP 17; TEMP 36.6; O2SAT 96
[2024-02-16] MEDS: Pantoprazole Sodium 40 MG Tablet PO (17:08)
[2024-02-16 19:25] VITALS: PULSE 112; RESP 18
[2024-02-16 21:09] VITALS: BP 109/69; PULSE 98; RESP 18; TEMP 36.3; O2SAT 94
[2024-02-16] MEDS: guaiFENesin 1,200 MG Tablet 1200 MG PO (21:12)
[2024-02-16] MEDS: Atorvastatin Calcium 80 MG Tablet PO (21:12)
[2024-02-16] MEDS: Lisinopril 40 MG Tablet PO (21:13)
[2024-02-17] VITALS (13 sets, daily range): BP systolic 112–149; BP diastolic 51–77; PULSE 82–102; RESP 16–20; TEMP 36.1–37.1; O2SAT 93–98
[2024-02-17] MEDS: Ipratropium/Albuterol Sulfate 3 ML AMPUL.NEB INHALATION ×4 (01:20→19:06)
[2024-02-17] MEDS: ALPRAZolam 0.5 MG Tablet PO ×3 (05:02→21:56)
[2024-02-17 05:33] LABS: Absolute Lymphocyte Count 1.71 X10^3/uL (0.83-4.51); Absolute Neutrophil Count 6.3 X10^3/uL (2.0-7.7); Basophil# 0.03 X10^3/uL; Basophil% 0.3 % (0-1); Eosinophil# 0.23 X10^3/uL; Eosinophils% 2.5 % (0-5); Hematocrit 22.2 % (37-47); Hemoglobin 6.8 g/dL (12.0-15.0); Lymphocyte # 1.71 X10^3/ul (0.83-4.51); Lymphocyte % 18.7 % (19-41); Mean Corp Hgb Conc 30.6 g/dL (32-36); Mean Corpuscular Hgb 27.5 pg (27.0-32.0); Mean Corpuscular Volume 89.9 fL (81-99); Mean Platelet Vol. 8.8 fl (6.2-12.0); Monocyte# 0.86 X10^3/uL; Monocyte% 9.4 % (0-10); NRBC Flagged by Analyzer 0 % (0-5); Neutrophil # 6.29 X10^3/uL (2.7-7.7); Neutrophil % 68.7 % (47-70); Platelet Count 515 K/mm3 (150-450); RBC Distribution Width CV 18.7 % (11.6-14.6); RBC Distribution Width SD 60.4 fl (35.1-43.9); Red Blood Count 2.47 M/mm3 (4.2-5.4); White Blood Count 9.2 K/mm3 (4.4-11.0)
[2024-02-17 06:03] LABS: Anion Gap 4 (5-15); BUN 7 mg/dL (7-18); BUN/Creat Ratio 13.2 RATIO (10-20); Calcium,Total 8.1 mg/dL (8.5-10.1); Chloride 111 mmol/L (98-107); Creatinine, Serum 0.53 mg/dL (0.55-1.02); EST Glomerular Filtration Rate 121 mL/min (>60); Est Glom Filt Rate - Afr Amer 147 mL/min (>60); Estimated Creatinine Clearance 61.22 ml/min; Glucose 100 mg/dL (74-106); Magnesium 1.6 mg/dL (1.6-2.6); Phosphorus 3.7 mg/dL (2.5-4.9); Potassium 3.8 mmol/L (3.5-5.1); Sodium Level 139 mmol/L (136-145)
[2024-02-17] MEDS: Budesonide Respules 0.5 MG/2 ML AMPUL.NEB. INHALATION ×2 (07:13→19:06)
[2024-02-17] MEDS: Aspirin E.C. 81 MG Tablet PO (08:06)
[2024-02-17] MEDS: Carvedilol 25 MG Tablet PO ×2 (08:06→17:14)
[2024-02-17] MEDS: Morphine 2 MG/ML Syringe IV ×2 (08:06→12:07)
[2024-02-17] MEDS: Pantoprazole Sodium 40 MG Tablet PO ×2 (08:07→21:56)
[2024-02-17] MEDS: guaiFENesin 1,200 MG Tablet 1200 MG PO ×2 (08:08→21:58)
[2024-02-17] MEDS: 0.9% Saline Lock 10 ML Syringe IV ×2 (08:11→12:07)
[2024-02-17] MEDS: Gabapentin 600 MG Tablet PO ×4 (08:17→21:56)
--- NOTE | 2024-02-17 09:08 | PN.SURG_ITS ---
Subjective Subjective Patient seen and examined during AM rounds. She overall is doing better today. She states that she slept well. She denies any nausea with her full liquids and has had ongoing loose dark stools. She does confirm that she is trying to take it slowly and does not want to make herself sick as she acknowledges feeling full quickly. She denies any symptoms of lightheadedness but does confirm that she feels more tired/weak. Objective Data Objective Data Vital Signs: Vital Signs Temp Pulse Resp BP Pulse Ox O2 Del Method O2 Flow Rate 98.4 F 96 20 H 116/52 L 93 Room Air 2 02/17/24 08:03 02/17/24 08:03 02/17/24 08:03 02/17/24 08:03 02/17/24 08:10 02/17/24 08:10 02/15/24 05:09 Oxygen Flow Rate (L/min) 2 Oxygen Delivery Method Room Air Weight: 167 lb 1.766 oz Body Mass Index (BMI) 33.7 Intake & Output: Intake and Output for Last 24 Hours 02/15/24 02/16/24 02/17/24 23:59 23:59 23:59 Intake Total 2895.00 / 2895.00 Balance 2895.00 / 2895.00 Lab / Micro Data 02/17/24 05:19 02/17/24 05:19 Labs: Laboratory Results - last 24 hr 02/16/24 06:54: Sodium Cancelled, Potassium Cancelled, Chloride Cancelled, Carbon Dioxide Cancelled, Anion Gap Cancelled, BUN Cancelled, Creatinine Cancelled, Estim Creat Clear Calc Cancelled, Est GFR (MDRD) Af Amer Cancelled, Est GFR (MDRD) Non-Af Cancelled, BUN/Creatinine Ratio Cancelled, Glucose Cancelled, Calcium Cancelled 02/16/24 09:17: Sodium 135 L, Potassium 4.0, Chloride 106, Carbon Dioxide 24.0, Anion Gap 5, BUN 9, Creatinine 0.70, Estim Creat Clear Calc 61.22, Est GFR (MDRD) Af Amer 107, Est GFR (MDRD) Non-Af 89, BUN/Creatinine Ratio 12.9, Glucose 101, Calcium 8.3 L 02/17/24 05:19: WBC 9.2, RBC 2.47 L, Hgb 6.8 L, Hct 22.2 L, MCV 89.9, MCH 27.5, MCHC 30.6 L, RDW Std Deviation 60.4 H, RDW Coeff of Renea 18.7 H, Plt Count 515 H, MPV 8.8, Immature Gran % (Auto) 0.400, Neut % (Auto) 68.7, Lymph % (Auto) 18.7 L , [place] % (Auto) 9.4, Eos % (Auto) 2.5, Baso % (Auto) 0.3, Absolute Neuts (auto) 6.3, Absolute Lymphs (auto) 1.71, Nucleated RBC % 0, Sodium 139, Potassium 3.8, Chloride 111 H, Carbon Dioxide 24.0, Anion Gap 4 L, BUN 7, Creatinine 0.53 L, Estim Creat Clear Calc 61.22, Est GFR (MDRD) Af Amer 147, Est GFR (MDRD) Non-Af 121, BUN/Creatinine Ratio 13.2, Glucose 100, Calcium 8.1 L, Phosphorus 3.7, Magnesium 1.6 Radiography Diagnostic Testing: Radiology Impression Small Bowel X-Ray 02/16/24 10:05 IMPRESSION: Normal progression of enteric contrast within bowel. No evidence of complete bowel obstruction. Mild mid small bowel distention persists which can be recurrent from peristalsis or secondary to ileus. Electronically Signed: Farzad Gautam MD at 2:18 EDT Reading Location ID and State: [address] [place] [address] Tel , Service support , Physical Exam Const oriented x3 and no apparent distress Resp normal respiratory effort GI GI Narrative: Improved abdominal distention, soft, nontender to palpation x 4 quadrants (previously noted tenderness of the right lower quadrant that is dissipated) Assessment & Plan Assessment/Plan (1) SBO (small bowel obstruction): PLAN: The patient was admitted with small bowel obstruction. The transition zone is suspected at the inferior portion of the mesh. She is now hospital day 3. She completed a small bowel follow-through yesterday after ingesting Gastrografin contrast herself. This showed normal bowel transit time but mild dilation of the small bowel. This could either be due to a partial obstruction or possible ileus. Either way patient is demonstrated tolerance of a diet advancement today, yet her hemoglobin has dropped and she reports ongoing darker stools. Plavix and Eliquis have been on hold since admission as agreed upon with vascular surgery in anticipation of possible surgery. Melquiades Caraballo MD General Surgery Endocrine Surgery Pager: [facility] [address] [place] [address], [facility], [address] [place] [address] Office: [phone] (2) Anemia: PLAN: Patient was slow downtrend of her hemoglobin 9.2-7.4-6.8 today. Patient describes symptoms of fatigue today. She shares that she is on surprised to hear that her hemoglobin is down trended. She continues to report melanic stools. When discussing her history of prior peptic ulcer disease she notes that this was merely an incidental finding and that she does not have a history of upper GI bleeding. Still this history and the description of her stools makes this a likely source. Thus I have increased her to twice daily dosing for her Protonix and continue to hold her anticoagulation as above. Type and cross with request to transfuse 1 unit has been ordered. I will recheck her hemoglobin at 1400 this afternoon. Patient was also de-escalated from full liquid to clear liquid diet today. If there is an appropriate rise in patient's hemoglobin will plan to just maintain on a clear liquid diet. If there is qu estion of ongoing losses we will plan to initiate bowel prep. Dr. Lisa is notified of this change and anticipates endoscopic evaluation tomorrow. Charges/Coding Visit Charges Inpatient E&M: 09131 Subs Hosp L2
[2024-02-17] MEDS: Magnesium Sulfate 4gm/100mL 4 GM/100 ML IV.SOLN. IV (10:23)
--- NOTE | 2024-02-17 12:55 | NURSING ---
Report called to [facility]ison. Pt to transfer to [id number]
[2024-02-17 14:06] LABS: Absolute Lymphocyte Count 1.75 X10^3/uL (0.83-4.51); Absolute Neutrophil Count 7.7 X10^3/uL (2.0-7.7); Basophil# 0.04 X10^3/uL; Basophil% 0.4 % (0-1); Eosinophil# 0.22 X10^3/uL; Eosinophils% 2.1 % (0-5); Hematocrit 24.8 % (37-47); Hemoglobin 7.4 g/dL (12.0-15.0); Lymphocyte # 1.75 X10^3/ul (0.83-4.51); Lymphocyte % 16.4 % (19-41); Mean Corp Hgb Conc 29.8 g/dL (32-36); Mean Corpuscular Hgb 26.9 pg (27.0-32.0); Mean Corpuscular Volume 90.2 fL (81-99); Mean Platelet Vol. 9.1 fl (6.2-12.0); Monocyte# 0.97 X10^3/uL; Monocyte% 9.1 % (0-10); NRBC Flagged by Analyzer 0.4 % (0-5); Neutrophil # 7.67 X10^3/uL (2.7-7.7); Neutrophil % 71.6 % (47-70); Platelet Count 587 K/mm3 (150-450); RBC Distribution Width CV 18.7 % (11.6-14.6); RBC Distribution Width SD 60.6 fl (35.1-43.9); Red Blood Count 2.75 M/mm3 (4.2-5.4); White Blood Count 10.7 K/mm3 (4.4-11.0)
[2024-02-17] MEDS: oxyCODONE 5 MG Tablet PO ×2 (17:13→23:13)
[2024-02-17] MEDS: Atorvastatin Calcium 80 MG Tablet PO (21:57)
[2024-02-17] MEDS: 0.9% Normal Saline (1000mL) 1,000 ML 50 ML IV (21:57)
[2024-02-17] MEDS: Lisinopril 40 MG Tablet PO (21:57)
[2024-02-18] VITALS (12 sets, daily range): BP systolic 84–138; BP diastolic 45–67; PULSE 79–89; RESP 12–20; TEMP 36.3–36.5; O2SAT 92–96
[2024-02-18] MEDS: Ipratropium/Albuterol Sulfate 3 ML AMPUL.NEB INHALATION ×3 (02:18→13:30)
[2024-02-18 04:28] LABS: Absolute Lymphocyte Count 1.91 X10^3/uL (0.83-4.51); Absolute Neutrophil Count 6.3 X10^3/uL (2.0-7.7); Basophil# 0.06 X10^3/uL; Basophil% 0.6 % (0-1); Eosinophil# 0.25 X10^3/uL; Eosinophils% 2.6 % (0-5); Hematocrit 29.2 % (37-47); Hemoglobin 8.4 g/dL (12.0-15.0); Lymphocyte # 1.91 X10^3/ul (0.83-4.51); Mean Corp Hgb Conc 28.8 g/dL (32-36); Mean Corpuscular Hgb 26.5 pg (27.0-32.0); Mean Corpuscular Volume 92.1 fL (81-99); Monocyte# 0.96 X10^3/uL; Monocyte% 10.1 % (0-10); NRBC Flagged by Analyzer 0.3 % (0-5); Neutrophil # 6.31 X10^3/uL (2.7-7.7); Neutrophil % 66.3 % (47-70); Platelet Count 487 K/mm3 (150-450); RBC Distribution Width CV 18.2 % (11.6-14.6); RBC Distribution Width SD 60.2 fl (35.1-43.9); Red Blood Count 3.17 M/mm3 (4.2-5.4); White Blood Count 9.5 K/mm3 (4.4-11.0)
[2024-02-18 04:49] LABS: Anion Gap 6 (5-15); BUN 6 mg/dL (7-18); BUN/Creat Ratio 9.8 RATIO (10-20); Calcium,Total 8.5 mg/dL (8.5-10.1); Chloride 107 mmol/L (98-107); Creatinine, Serum 0.61 mg/dL (0.55-1.02); EST Glomerular Filtration Rate 103 mL/min (>60); Est Glom Filt Rate - Afr Amer 124 mL/min (>60); Estimated Creatinine Clearance 61.22 ml/min; Glucose 96 mg/dL (74-106); Magnesium 2.3 mg/dL (1.6-2.6); Potassium 4.1 mmol/L (3.5-5.1); Sodium Level 136 mmol/L (136-145)
[2024-02-18] MEDS: ALPRAZolam 0.5 MG Tablet PO ×2 (05:10→12:40)
[2024-02-18] MEDS: oxyCODONE 5 MG Tablet PO ×2 (05:11→12:38)
--- NOTE | 2024-02-18 07:10 | PCM.PN.SRG ---
Subjective Subjective The patient reports no abdominal pain. She says that she had brown bowel movements yesterday and not melanotic. Objective Data Objective Data Vital Signs: Vital Signs Temp Pulse Resp BP Pulse Ox O2 Del Method O2 Flow Rate 97.5 F L 82 18 111/59 L 95 Room Air 2 02/18/24 04:51 02/18/24 04:51 02/18/24 04:51 02/18/24 04:51 02/18/24 04:51 02/18/24 04:51 02/15/24 05:09 Oxygen Flow Rate (L/min) 2 Oxygen Delivery Method Room Air Weight: 167 lb 1.766 oz Body Mass Index (BMI) 33.7 Intake & Output: Intake and Output for Last 24 Hours 02/16/24 02/17/24 02/18/24 23:59 23:59 23:59 Intake Total 2895.00 / 2895.00 1922.67 / 1922.67 Balance 2895.00 / 2895.00 1922.67 / 1922.67 Lab / Micro Data 02/18/24 04:08 02/18/24 04:08 Labs: Laboratory Results - last 24 hr 02/17/24 09:18: Blood Type A POSITIVE, Antibody Screen NEGATIVE, Crossmatch See Detail 02/17/24 13:40: WBC 10.7, RBC 2.75 L, Hgb 7.4 L, Hct 24.8 L, MCV 90.2, MCH 26.9 L, MCHC 29.8 L, RDW Std Deviation 60.6 H, RDW Coeff of Renea 18.7 H, Plt Count 587 H, MPV 9.1, Immature Gran % (Auto) 0.400, Neut % (Auto) 71.6 H, Lymph % (Auto) 16.4 L, [place] % (Auto) 9.1, Eos % (Auto) 2.1, Baso % (Auto) 0.4, Absolute Neuts (auto) 7.7, Absolute Lymphs (auto) 1.75, Nucleated RBC % 0.4 02/18/24 04:08: WBC 9.5, RBC 3.17 L, Hgb 8.4 L, Hct 29.2 L, MCV 92.1, MCH 26.5 L, MCHC 28.8 L, RDW Std Deviation 60.2 H, RDW Coeff of Renea 18.2 H, Plt Count 487 H, MPV 9.0, Immature Gran % (Auto) 0.400, Neut % (Auto) 66.3, Lymph % (Auto) 20.0, [place] % (Auto) 10.1 H, Eos % (Auto) 2.6, Baso % (Auto) 0.6, Absolute Neuts (auto) 6.3, Absolute Lymphs (auto) 1.91, Nucleated RBC % 0.3, Sodium 136, Potassium 4.1, Chloride 107, Carbon Dioxide 23.0, Anion Gap 6, BUN 6 L, Creatinine 0.61, Estim Creat Clear Calc 61.22, Est GFR (MDRD) Af Amer 124, Est GFR (MDRD) Non-Af 103, BUN/Creatinine Ratio 9.8 L, Glucose 96, Calcium 8.5, Phosphorus 4.0, Magnesium 2.3 Physical Exam Const oriented x3 and no apparent distress Resp normal respiratory effort Cardio regular rate and regular rhythm GI normal to inspection, nondistended, normoactive bowel sounds Assessment & Plan Assessment/Plan (1) SBO (small bowel obstruction): PLAN: Patient reports tolerating clears with no nausea or vomiting. She is hungry for regular food. She is having bowel movements that she said yesterday's were brown and not black. (2) Acute blood loss anemia: PLAN: Patient had melanotic stools over the weekend and hemoglobin did drop and she was lightheaded. She responded appropriately to transfusion. I will plan for EGD to evaluate the stomach eruptive ulcer disease today. If that is normal I will order her a diet and she will follow-up for colonoscopy. I explained endoscopy in detail to the patient. I explained the risks including but not limited to stroke or heart attack with anesthesia, perforation of the GI tract, bleeding, infection. I explained that any of these could necessitate further emergency surgery. The patient understands and all questions were answered sufficiently. The patient wishes to proceed with procedure. Matt Lisa MD Pager: [facility] [address] [place] [address], [address] [place] [address] Office:
[2024-02-18] MEDS: Carvedilol 25 MG Tablet PO (07:39)
[2024-02-18] MEDS: Budesonide Respules 0.5 MG/2 ML AMPUL.NEB. INHALATION (07:39)
[2024-02-18] MEDS: Lactated Ringers 1,000 ML 15 ML IV (10:45)
--- NOTE | 2024-02-18 11:53 | PN_ITS ---
Progress Note The patient had EGD this morning. It was normal. There was no ulceration or gastritis or sequela of bleeding. I discussed afterwards and the patient does not want colonoscopy at this time and she would rather do it as an outpatient. She does not want to stay any longer and she wants to try regular diet. I advised for colonoscopy with the patient once again stated that she would come for an outpatient colonoscopy in the immediate future. I will start her on a regular diet and her Plavix and see how she does and hopefully discharge tomorro w if her hemoglobin is stable and she has no more melanotic stools and perform an outpatient colonoscopy. Matt Lisa MD Pager: [facility] [address] [place] [address], [address] [place] [address] Office:
--- NOTE | 2024-02-18 12:02 | OP.EGD_ITS ---
Patient Name: Linda Leija Procedure Date: 02/18/2024 11:22 AM Date of : 1955 Age: 68 Procedure: Upper GI endoscopy Indications: Melena Providers: Matt Lisa MD Medicines: Propofol per Anesthesia Patient Profile: This is a 68 year old female. Refer to note in patient chart for documentation of history and physical. Complications: No immediate complications. Estimated blood loss: Minimal. Procedure: Pre-Anesthesia Assessment: - Prior to the procedure, a History and Physical was performed, and patient medications and allergies were reviewed. The patient's tolerance of previous anesthesia was also reviewed. The risks and benefits of the procedure and the sedation options and risks were discussed with the patient. All questions were answered, and informed consent was obtained. Prior Anticoagulants: The patient has taken Plavix (clopidogrel), last dose was 5 days prior to procedure. After reviewing the risks and benefits, the patient was deemed in satisfactory condition to undergo the procedure. After obtaining informed consent, the endoscope was passed under direct vision. Throughout the procedure, the patient's blood pressure, pulse, and oxygen saturations were monitored continuously. The gastroscope was introduced through the mouth, and advanced to the fourth part of duodenum. The upper GI endoscopy was accomplished without difficulty. The patient tolerated the procedure well. Scope In: 11:27:17 AM Scope Out: 11:29:31 AM Total Procedure Duration Time 0 hours 2 minutes 14 seconds Findings: The esophagus was normal. The stomach was normal. The examined duodenum was normal. \ Please note, remainder of images lost by computer. Impression: - Normal esophagus. - Normal stomach. - Normal examined duodenum. - No specimens collected. Recommendation: - Return patient to [facility] for ongoing care. - Resume previous diet. - Continue present medications. Procedure Code(s): --- Professional --- 87203, Esophagogastroduodenoscopy, flexible, transoral; diagnostic, including collection of specimen(s) by brushing or washing, when performed (separate procedure) Diagnosis Code(s): --- Professional --- K92.1, Melena (includes Hematochezia) CPT copyright 2021 [employer]. All rights reserved. The codes documented in this report are preliminary and upon crop puller review may be revised to meet current compliance requirements. Matt Lisa MD 02/18/2024 12:01:44 PM This report has been signed electronically. Number of Addenda: 0 Note Initiated On: 02/18/2024 11:22 AM
--- NOTE | 2024-02-18 12:02 | OP.CCLET_ITS ---
02/18/2024 Nate Gray [address] [place] [address] Re : Upper GI endoscopy procedure for Linda Leija Dear Dr. Gray This procedure was performed on Sunday, February 18, 2024. My impressions and recommendations are as follows: Impressions : - Normal esophagus. - Normal stomach. - Normal examined duodenum. - No specimens collected. Recommendations : - Return patient to hospital [facility] for ongoing care. - Resume previous diet. - Continue present medications. My findings are described in the full procedure note, which is enclosed. If I can be of further assistance, please feel free to contact me at Doctor phone number(s): , Work: . Sincerely, Matt Lisa MD 02/18/2024 12:01:44 PM This report has been signed electronically.
[2024-02-18] MEDS: Pantoprazole Sodium 40 MG Tablet PO (12:40)
[2024-02-18] MEDS: Gabapentin 600 MG Tablet PO (12:40)
[2024-02-18] MEDS: Aspirin E.C. 81 MG Tablet PO (12:43)
[2024-02-18] MEDS: Clopidogrel Bisulfate 75 MG Tablet PO (12:46)
--- NOTE | 2024-02-18 15:27 | PCM.PN.BLA ---
Progress Note The patient tolerated lunch and would like to go home right now. I recommended that she stay for repeat blood count and colonoscopy but once again she says she would like to do this as an outpatient. I will discharge her home on a regular diet as she did tolerate regular diet for lunch. I would like her to follow-up with me very soon to schedule colonoscopy. If she has any further GI bleeding she should present to the emergency room.
--- NOTE | 2024-02-18 15:28 | DS.PCM_ITS ---
Providers Date of Admission: 02/15/24 Primary Care Physician: Dr. Nate Gray MD Consultations 02/15/24 10:39 Consult: Vascular Surgery Routine Consulting Provider: Alec Lopez Reason for Consult: LLE surgery recently, may need to stop anticoag EMERGENT Consult: No MD Notified: Yes Date Notified: 02/15/24 Time Notified: 07:21 Method of Notification: Text Reason For Visit: SMALL BOWEL OBSTRUCTION Diagnosis Discharge Diagnosis (1) SBO (small bowel obstruction): Status: Acute Code(s): K56.609 - Unspecified intestinal obstruction, unspecified as to partial versus complete obstruction Plan: Patient reports tolerating clears with no nausea or vomiting. She is hungry for regular food. She is having bowel movements that she said yesterday's were brown and not black. (2) Acute blood loss anemia: Status: Acute Code(s): D62 - Acute posthemorrhagic anemia Plan: Patient had melanotic stools over the weekend and hemoglobin did drop and she was lightheaded. She responded appropriately to transfusion. I will plan for EGD to evaluate the stomach eruptive ulcer disease today. If that is normal I will order her a diet and she will follow-up for colonoscopy. I explained endoscopy in detail to the patient. I explained the risks including but not limited to stroke or heart attack with anesthesia, perforation of the GI tract, bleeding, infection. I explained that any of these could necessitate f urther emergency surgery. The patient understands and all questions were answered sufficiently. The patient wishes to proceed with procedure. Matt Lisa MD Pager: [facility] [address] [place] [address], [address] [place] [address] Office: Medications at Discharge Home Medications carvedilol 25 mg tablet 25 mg PO BID HEART 05/28/19 spironolactone 25 mg tablet 25 mg PO DAILY BLOOD PRESSURE 05/28/19 alprazolam 0.5 mg tablet 0.5 mg PO TID ANXIETY 02/12/21 psyllium 1 packet PO DAILY PRN CONSTPATION 02/12/21 acetaminophen 500 mg tablet 1,000 mg PO Q6H PRN PAIN 07/19/22 pantoprazole 40 mg tablet,delayed release 40 mg PO BID GERD 30 days #60 tabs 10/12/22 guaifenesin 1,200 mg tablet, extended release 12 hr (Mucinex) 1,200 mg PO BID PRN MUCOUS 07/02/23 lisinopril 40 mg tablet 40 mg PO QHS BLOOD PRESSURE 07/14/23 aspirin 81 mg tablet,delayed release 81 mg PO BREAKFAST HEART HEALTH #0 tabs 07/19/23 gabapentin 600 mg tablet 600 mg PO 4X/DAY NERVE PAIN 11/06/23 tramadol 50 mg tablet 50 mg PO 4X/DAY PRN PAIN 11/06/23 albuterol sulfate 90 mcg/actuation aerosol inhaler (Ventolin HFA) 2 puff inhalation Q4H PRN shortness of breath or wheezing #18 grams 11/15/23 fluticasone fur. 200 mcg-umeclid 62.5 mcg-vilant 25 mcg inhalat.powder (Trelegy Ellipta) 1 inh inhalation DAILY ASTHMA #60 ea 11/15/23 clopidogrel 75 mg tablet 75 mg PO DAILY BLOOD THINNER #90 tabs 11/21/23 atorvastatin 80 mg tablet 80 mg PO QHS CHOLESTEROL 01/30/24 buprenorphine 5 mcg/hour weekly transdermal patch 1 patch topical QWEEK PAIN 01/30/24 multivitamin with minerals-folic acid 80 mcg chewable tablet (Centrum Adult 50 Plus) 1 tab PO DAILY SUPPLEM 01/30/24 docusate sodium 100 mg capsule 100 mg PO BID stool softner 7 days #14 caps 02/07/24 nicotine 21 mg/24 hr daily transdermal patch 21 mg transdermal DAILY stop smoking #28 ea 02/07/24 oxycodone 5 mg tablet 5 mg PO Q6H PRN PRN Pain Score 4-10 7 days #28 tabs 02/12/24 Hospital Course Operations None (EGD) Summary of Care Provided Hospital Course: The patient was admitted with small bowel obstruction. The following day she was starting to pass flatus and feeling better and so small bowel follow-through was performed and was normal. However after small bowel follow-through she st arted having melanotic stools. Her hemoglobin also down trended to 6.4 and she required transfusion. Today she reported that her bowel movements were back to brown and she was having no abdominal pain. I took her for EGD which did not show any ulceration or signs of active bleeding or sequela of bleeding. I recommended prep for colonoscopy with patient really wanted to eat and go home and she was very agitated over not having a diet. Diet was started and she tolerated this well and wanted to be discharged home and follow-up for outpatient colonoscopy. I informed her to follow-up with me immediately if she had any GI bleeding or lightheadedness or abdominal pain that returned upon going home. Otherwise I will see her as an outpatient and schedule her for colonoscopy and recheck her hemoglobin as an outpatient. Weight / BMI Weight Weight: 167 lb 1.766 oz Body Mass Index (BMI) 33.7 ABG / Lab / Microbiology Data 02/18/24 04:08 02/18/24 04:08 Laboratory: Laboratory Results - last 24 hr 02/17/24 09:18: Blood Type A POSITIVE, Antibody Screen NEGATIVE, Crossmatch See Detail 02/18/24 04:08: WBC 9.5, RBC 3.17 L, Hgb 8.4 L, Hct 29.2 L, MCV 92.1, MCH 26.5 L , MCHC 28.8 L, RDW Std Deviation 60.2 H, RDW Coeff of Renea 18.2 H, Plt Count 487 H, MPV 9.0, Immature Gran % (Auto) 0.400, Neut % (Auto) 66.3, Lymph % (Auto) 20.0, [place] % (Auto) 10.1 H, Eos % (Auto) 2.6, Baso % (Auto) 0.6, Absolute Neuts (auto) 6.3, Absolute Lymphs (auto) 1.91, Nucleated RBC % 0.3, Sodium 136, Potassium 4.1, Chloride 107, Carbon Dioxide 23.0, Anion Gap 6, BUN 6 L, Creatinine 0.61, Estim Creat Clear Calc 61.22, Est GFR (MDRD) Af Amer 124, Est GFR (MDRD) Non-Af 103, BUN/Creatinine Ratio 9.8 L, Glucose 96, Calcium 8.5, Phosphorus 4.0, Magnesium 2.3 D/C Instructions Discharge Diet: Light diet - advance as tolerated Discharge Activity: Return to Normal Activity Call your doctor if your incision/area has: Sudden Increased Bleeding and Increased Pain/ Swelling Call your doctor if you observe: Fever of 101 or Higher, Inability to have a bowel movement and - (Please present to the emergency room if there is any GI bleeding or lightheadedness or increased abdominal pain) Please Follow Up With: Matt Lisa MD When: Please call to schedule 1 week follow up appointment. [phone] Meaningful Use Info Meaningful Use Meaningful Use Diagnoses (Choose all that apply): None applicable Ischemic Stroke Statin Dosing Therapy Reference: STATIN DOSE THERAPY REFERENCE: * Patients > 75 years receive moderate or high dose statin therapy. * Patients 75 years or YOUNGER should receive HIGH intensity statin dose unless contraindicated. You will be required to document reason for non-treatment if statin daily dose does not meet guidelines. HIGH DOSE STATIN THERAPY DAILY Atorvastatin > than or = to 40 mg Rosuvastatin > than or = to 20 mg Amlodipine + Atorvastatin > than or = to 2.5/40 mg Ezetimibe + Simvastatin 10/80 mg Simvastatin 80mg Discharge Plan Admission Admit Date/Time: 02/15/24 07:16 Attending Provider: Matt Lisa Primary Care Provider: Nate Gray Consulting Providers: Alec Lopez Discharge Orders/Prescriptions Prescriptions: Continued Trelegy Ellipta 200-62.5-25 mcg blister with device 1 inh inhalation DAILY Qty: 60 11RF albuterol sulfate [Ventolin HFA] 90 mcg/actuation HFA aerosol inhaler 2 puff inhalation Q4H PRN (Reason: shortness of breath or wheezing) Qty: 18 6RF carvedilol 25 MG tablet 25 mg PO BID spironolactone 25 MG tablet 25 mg PO DAILY alprazolam 0.5 mg tablet 0.5 mg PO TID psyllium Packet 1 packet PO DAILY PRN (Reason: CONSTPATION ) acetaminophen 500 mg Tablet 1,000 mg PO Q6H PRN (Reason: PAIN ) pantoprazole 40 mg Tablet,Delayed Release (Dr/Ec) 40 mg PO BID 30 Days Qty: 60 0RF lisinopril 40 mg tablet 40 mg PO QHS aspirin 81 mg Tablet,Delayed Release (Dr/Ec) 81 mg PO BREAKFAST Qty: 0 0RF guaifenesin [Mucinex] 1,200 mg tablet extended release 12hr 1,200 mg PO BID PRN (Reason: MUCOUS) gabapentin 600 mg tablet 600 mg PO 4X/DAY tramadol 50 mg tablet 50 mg PO 4X/DAY PRN (Reason: PAIN ) Hold Instructions: Resume on 02/14/24. You may restart once you have completed the oxycodone that was prescribed or after first discussing with pain management Centrum Adult 50 Plus 80 mcg tablet,chewable 1 tab PO DAILY atorvastatin 80 mg tablet 80 mg PO QHS buprenorphine 5 mcg/hour patch weekly 1 patch topical QWEEK Hold Instructions: Resume on 03/06/24. Discuss with pain management prior to restarting Patient Comments: PATIENT STATES DOES NOT WORK docusate sodium 100 mg Capsule 100 mg PO BID 7 Days Qty: 14 0RF nicotine 21 mg/24 hr Patch 24 Hour 21 mg transdermal DAILY Qty: 28 0RF clopidogrel 75 mg tablet 75 mg PO DAILY Qty: 90 3RF oxycodone 5 mg tablet 5 mg PO Q6H PRN PRN (Reason: Pain Score 4-10) 7 Days Qty: 28 0RF Discontinued Xarelto 10 mg tablet 10 mg PO DAILY Qty: 30 1RF Other Ambulatory Orders: CBC W/Diff, Automated (Routine) Timeframe: 1 Week Facility: [facility] - Location: Laboratory Ordered By: Dr. Matt Lisa Referrals / Follow Up: Nate Gray MD [Primary Care Provider] - Disposition Disposition (needs filled in before D/C Order can be placed): Home, Self Care
== END 2024-02-18 16:48 | disposition home or self-care (01) | DRG 389 ==
LOC: ED 07:23 → PCU 09:11 → MS3 02-17 13:14
PROVIDERS: Surgery; Admitting Provider Surgery; Emergency Provider Emergency Medicine; PCP Internal Medicine; Visit Provider Surgery
PROC: 0DJ08ZZ Inspection of Upper Intestinal Tract, Via Natural or Artificial Opening Endoscopic (ICD-10-PCS; CPT 43235; principal; 2024-02-18 11:25)
DX: K56.609 Unspecified intestinal obstruction, unspecified as to partial versus complete obstruction (principal); D62 Acute posthemorrhagic anemia; J44.9 Chronic obstructive pulmonary disease, unspecified; I73.9 Peripheral vascular disease, unspecified; I10 Essential (primary) hypertension; E78.5 Hyperlipidemia, unspecified; F17.210 Nicotine dependence, cigarettes, uncomplicated; Z79.82 Long term (current) use of aspirin; Z79.51 Long term (current) use of inhaled steroids; Z79.02 Long term (current) use of antithrombotics/antiplatelets; Z80.0 Family history of malignant neoplasm of digestive organs; G89.29 Other chronic pain; Z79.01 Long term (current) use of anticoagulants
CPT/HCPCS: 36415; 74018; 74176; 74250; 80048; 80053; 81001; 83605; 83690; 83735; 84100; 85025; 86850; 86900; 86901; 86920; 86922; 94640; 94668; 99284; J7030; J7040; J7120; P9016; A4216; J2405

== ENCOUNTER 2024-02-22 06:44 | Day surgery (SDC) | payer MEDICARE, MEDICAID, SELFPAY ==
[2024-02-22 07:08] VITALS: BP 126/72; PULSE 90; RESP 18; TEMP 36.1; O2SAT 98; BMI 32.5
[2024-02-22] MEDS: Lactated Ringers 1,000 ML 15 ML IV (07:18)
--- NOTE | 2024-02-22 07:25 | HP.PCM.SX_ITS ---
HPI - General HPI Narrative BAHMAN MICHELE, is a 68 F who presents for colonoscopy. Patient was recently admitted with small bowel obstruction found to be iron deficiency anemic. EGD was normal. Plan for colonoscopy today. PFSH Medical History Decrease in appetite Wears hearing aid History of steroid therapy Arthritis PVD (peripheral vascular disease) Syncope Dietary restriction Gastric reflux Leg cramps Anxiety disorder Wears dentures Low iron High cholesterol History of ulceration On home oxygen therapy Post-menopausal Diverticulitis Back pain due to injury Chronic headaches History of stress test Wears glasses Chronic pain Shortness of breath Smoker History of cardiovascular stress test Leg pain S/P arteriogram of extremity Essential hypertension COPD (chronic obstructive pulmonary disease) Incisional hernia without mention of obstruction or gangrene Impaired fasting glucose History of pelvic hematoma Duodenal ulcer Clostridium difficile colitis Closed fracture of fifth metatarsal bone of left foot Injury, spleen, with capsular tears Pseudocyst of pancreas Peptic ulcer disease SBO (small bowel obstruction) H/O spleen injury Asthma Hyperlipemia Alcohol abuse Home Medications ?Medication ?Instructions ?Recorded ?Last Taken ?Type carvedilol 25 mg tablet 25 mg PO BID HEART 05/28/19 02/22/24 05:00 History spironolactone 25 mg tablet 25 mg PO DAILY BLOOD PRESSURE 05/28/19 02/03/24 History alprazolam 0.5 mg tablet 0.5 mg PO TID ANXIETY 02/12/21 02/22/24 History psyllium 1 packet PO DAILY PRN CONSTPATION 02/12/21 Unknown History acetaminophen 500 mg tablet 1,000 mg PO Q6H PRN PAIN 07/19/22 02/03/24 History pantoprazole 40 mg tablet,delayed 40 mg PO BID GERD 30 days #60 tabs 10/12/22 02/22/24 05:00 Rx release guaifenesin 1,200 mg tablet, 1,200 mg PO BID PRN MUCOUS 07/02/23 02/03/24 History extended release 12 hr (Mucinex) lisinopril 40 mg tablet 40 mg PO QHS BLOOD PRESSURE 07/14/23 02/21/24 History aspirin 81 mg tablet,delayed 81 mg PO BREAKFAST HEART HEALTH 07/19/23 02/04/24 Rx release #0 tabs gabapentin 600 mg tablet 600 mg PO 4X/DAY NERVE PAIN 11/06/23 02/04/24 History tramadol 50 mg tablet 50 mg PO 4X/DAY PRN PAIN 11/06/23 02/22/24 05:00 History albuterol sulfate 90 mcg/actuation 2 puff inhalation Q4H PRN 11/15/23 02/03/24 Rx aerosol inhaler (Ventolin HFA) shortness of breath or wheezing #18 grams fluticasone fur. 200 mcg-umeclid 1 inh inhalation DAILY ASTHMA #60 11/15/23 02/04/24 Rx 62.5 mcg-vilant 25 mcg ea inhalat.powder (Trelegy Ellipta) clopidogrel 75 mg tablet 75 mg PO DAILY BLOOD THINNER #90 11/21/23 02/15/24 Rx tabs atorvastatin 80 mg tablet 80 mg PO QHS CHOLESTEROL 01/30/24 02/03/24 History multivitamin with minerals-folic 1 tab PO DAILY SUPPLEM 01/30/24 02/03/24 History acid 80 mcg chewable tablet (Centrum Adult 50 Plus) nicotine 21 mg/24 hr daily 21 mg transdermal DAILY stop 02/07/24 Unknown Rx transdermal patch smoking #28 ea oxycodone 5 mg tablet 5 mg PO Q6H PRN PRN Pain Score 02/12/24 Unknown Rx 4-10 7 days #28 tabs Allergy/AdvReac Type Severity Reaction Status Date / Time amlodipine AdvReac Intermediate Nausea/Vom/ Verified 02/22/24 07:06 Diarrhea clonidine AdvReac Mild Nausea/Vom/ Verified 02/22/24 07:06 Diarrhea adhesive AdvReac Rash Verified 02/22/24 07:06 codeine AdvReac Nausea Verified 02/22/24 07:06 Family History Mother Heart disease Hypertension Diabetes Sister Hypertension Brother Hypertension Sister Hypertension Cervical cancer Brother Pancreatic cancer Surgical History History of esophagogastroduodenoscopy (EGD) Hx of colonoscopy Hx of cervical spine surgery H/O: H/O colostomy History of hernia repair Social History household members: spouse housing: house Smoking Status: Current every day smoker tobacco type: cigarettes Electronic Cigarette Use: not used second hand exposure: Yes alcohol intake: current alcohol intake frequency: a few times a week substance use type: does not use caffeine: Yes what type of physical activity do you participate in: bicycling frequency: 1-2 times per week ROS Constitutional Constitutional: Denies anorexia, chills or fatigue Eyes Eyes: Denies blurry vision ENT HEENT: Denies abnormal hearing Cardiovascular Cardiovascular: Denies chest pain Respiratory/Chest Respiratory/Chest: Denies cough or dyspnea Gastrointestinal Gastrointestinal: Reports abdominal pain; Denies coffee ground emesis, nausea or vomiting Genitourinary Genitourinary: Denies change in urinary stream Musculoskeletal Musculoskeletal: Denies abnormal gait Integumentary Integumentary: Denies new lesions Neurologic Neurologic: Denies abnormal gait Hematologic/Lymphatic Hematologic/Lymphatic: Denies easy bleeding Vital Signs Vital Signs Vital Signs: 02/22/24 07:08 02/22/24 07:08 Temperature 97 F L Temperature Source Temporal Pulse Rate 90 Respiratory Rate 18 Respiratory Pattern Normal Blood Pressure 126/72 H Blood Pressure Mean 90 Blood Pressure Source Monitor Blood Pressure Position Semi-Fowlers Blood Pressure Location Right Arm Pulse Ox 98 Oxygen Delivery Method Room Air Weight Weight: 161 lb Body Mass Index (BMI) 32.5 Physical Exam Const oriented x3 and no apparent distress Resp normal respiratory effort GI soft to palpation and non-tender Extremity normal to inspection and no clubbing, cyanosis or edema Assessment & Plan Assessment/Plan (1) Acute blood loss anemia: PLAN: The patient was recently admitted for small bowel obstruction but found to have iron deficiency anemia. I am planning for colonoscopy to evaluate. She had EGD while in the hospital. It was normal. I explained endoscopy in detail to the patient. I explained the risks including but not limited to stroke or heart attack with anesthesia, perforation of the GI tract, bleeding, infection. I explained that any of these could necessitate further emergency surgery. The patient understands and all questions were answered sufficiently. The patient wishes to proceed with procedure. Matt Lisa MD Pager: [facility] [address] [place] [address], [address] [place] [address] Office:
[2024-02-22 07:59] VITALS: BP 103/63; BP 126/72; PULSE 80; RESP 16; TEMP 36.9; O2SAT 96
--- NOTE | 2024-02-22 08:00 | COLBX_PTH ---
PATIENT: BAHMAN MICHELE LOC: EN U#:[id number] AGE/SX: 68/F ROOM: RE02/22/[address]: Dr. Matt Lisa MD : 1955 BED: DIS: 02/22/2024 SPEC #: [id number] RECD: 02/22/24 10:43 STATUS: ARLENE RESierra #: [id number] JUSTA: 02/22/24 08:[address]: Matt Lisa DEPT: SURGICAL PATHOLOGY RECD BY: Winter Kenyon ENTERED: 02/22/24 11:09 SP TYPE: COLON BX OTHR DR: Dr. Nate Gray MD Tissues: Rectum, NOS Procedures: Surgery Specimen Level IV HEADER OPERATION: Colonoscopy, polypectomy PRE-OP DIAGNOSIS: Acute blood loss anemia TISSUE SUBMITTED: Rectal polyp MICROSCOPIC DIAGNOSIS Rectal polyp, biopsy: Hyperplastic polyp. AM/mr 02/25/2024 MICROSCOPIC DESCRIPTION Slides are reviewed. GROSS DESCRIPTION Received in fixative is one container labeled with the patient's name and designated Rectal polyp. The specimen consists of one irregular fragment of light hadley soft tissue that measures 0.5 x 0.5 x 0.2 cm. The specimen is totally submitted in one cassette. CHAPARRO/ 02/22/2024 TC:5 CPT:47317
[2024-02-22 08:05] VITALS: BP 107/54; BP 126/72; PULSE 89; RESP 16; O2SAT 96
--- NOTE | 2024-02-22 08:06 | OP.COLON_ITS ---
Patient Name: Linda Leija Procedure Date: 02/22/2024 7:22 AM Date of : 1955 Age: 68 Procedure: Colonoscopy Indications: Iron deficiency anemia Providers: Matt Lisa MD Referring MD: Nate Gray Medicines: Propofol per Anesthesia Patient Profile: This is a 68 year old female. Refer to note in patient chart for documentation of history and physical. Last Colonoscopy: 5 years ago. Complications: No immediate complications. Estimated blood loss: Minimal. Procedure: Pre-Anesthesia Assessment: - Prior to the procedure, a History and Physical was performed, and patient medications and allergies were reviewed. The patient's tolerance of previous anesthesia was also reviewed. The risks and benefits of the procedure and the sedation options and risks were discussed with the patient. All questions were answered, and informed consent was obtained. Prior Anticoagulants: The patient has taken no anticoagulant or antiplatelet agents. After reviewing the risks and benefits, the patient was deemed in satisfactory condition to undergo the procedure. After I obtained informed consent, the scope was passed under direct vision. Throughout the procedure, the patient's blood pressure, pulse, and oxygen saturations were monitored continuously. The Colonoscope was introduced through the anus and advanced to the cecum, identified by appendiceal orifice and ileocecal valve. The colonoscopy was performed without difficulty. The patient tolerated the procedure well. The quality of the bowel preparation was good. The ileocecal valve, appendiceal orifice, and rectum were photographed. Scope In: 7:41:44 AM Scope Withdrawal Time 0 hours 6 minutes 15 seconds Scope Out: 7:55:27 AM Total Procedure Duration Time 0 hours 13 minutes 43 seconds Findings: The entire examined colon appeared normal on direct and retroflexion views. A small polyp was found in the anastomosis. The polyp was removed with a hot snare. Resection and retrieval were complete. Impression: - The entire examined colon is normal on direct and retroflexion views. - One small polyp at the anastomosis, removed with a hot snare. Resected and retrieved. Recommendation: - Await pathology results. - Repeat colonoscopy in 5 years for surveillance. - Continue present medications. Procedure Code(s): --- Professional --- 03323, Colonoscopy, flexible; with removal of tumor(s), polyp(s), or other lesion(s) by snare technique Diagnosis Code(s): --- Professional --- D12.6, Benign neoplasm of colon, unspecified D50.9, Iron deficiency anemia, unspecified CPT copyright 2021 [employer]. All rights reserved. The codes documented in this report are preliminary and upon auto bumper mechanic review may be revised to meet current compliance requirements. Matt Lisa MD 02/22/2024 8:06:28 AM This report has been signed electronically. Number of Addenda: 0 Note Initiated On: 02/22/2024 7:22 AM
--- NOTE | 2024-02-22 08:07 | OP.CCLET_ITS ---
02/22/2024 Nate Gray [address] [place] [address] Re : Colonoscopy procedure for Linda Leija Dear Dr. Gray This procedure was performed on Thursday, February 22, 2024. My impressions and recommendations are as follows: Impressions : - The entire examined colon is normal on direct and retroflexion views. - One small polyp at the anastomosis, removed with a hot snare. Resected and retrieved. Recommendations : - Await pathology results. - Repeat colonoscopy in 5 years for surveillance. - Continue present medications. My findings are described in the full procedure note, which is enclosed. If I can be of further assistance, please feel free to contact me at Doctor phone number(s): , Work: . Sincerely, Matt Lisa MD 02/22/2024 8:06:28 AM This report has been signed electronically.
[2024-02-22 08:10] VITALS: BP 126/72; BP 96/74; PULSE 85; RESP 16; O2SAT 96
[2024-02-22 08:15] VITALS: BP 119/60; BP 126/72; PULSE 86; RESP 16; TEMP 36.6; O2SAT 95
[2024-02-22 08:35] VITALS: BP 126/72
== END 2024-02-22 08:36 | disposition home or self-care (01) ==
LOC: EN 06:50 → AC 07:30
PROVIDERS: PCP Internal Medicine; Referring Provider Internal Medicine; Visit Provider Surgery
PROC: 0DJD8ZZ Inspection of Lower Intestinal Tract, Via Natural or Artificial Opening Endoscopic (ICD-10-PCS; CPT 45378; principal; 2024-02-22 07:55)
DX: K62.1 Rectal polyp (principal); J44.9 Chronic obstructive pulmonary disease, unspecified; D62 Acute posthemorrhagic anemia; I10 Essential (primary) hypertension; D50.9 Iron deficiency anemia, unspecified; F17.210 Nicotine dependence, cigarettes, uncomplicated; E78.00 Pure hypercholesterolemia, unspecified; F41.9 Anxiety disorder, unspecified; K21.9 Gastro-esophageal reflux disease without esophagitis; Z79.51 Long term (current) use of inhaled steroids; Z79.82 Long term (current) use of aspirin; Z79.899 Other long term (current) drug therapy; Z79.02 Long term (current) use of antithrombotics/antiplatelets; Z86.718 Personal history of other venous thrombosis and embolism
CPT/HCPCS: 45385; 88305; J7120; J2405

== ENCOUNTER → 2024-03-20 | Outpatient (CLI) | payer MEDICARE, MEDICAID, SELFPAY ==
--- NOTE | 2024-03-20 10:29 | VDLE_ITS ---
Reason For Study: BLE Pain RIGHT LEFT GSV is normal. No GSV Visualized. HX Lt Fem-POP BPG. CFV is compressible, spontaneous, phasic, CFV is compressible, spontaneous, phasic, competent and demonstrates normal competent, and demonstrates normal augmentation. augmentation. FV is compressible, spontaneous, phasic, FV is compressible, spontaneous, phasic, competent and demonstrates normal competent and demonstrates normal augmentation. augmentation. POP V is compressible, spontaneous, phasic, POP V is compressible, spontaneous, phasic, competent and demonstrates normal competent and demonstrates normal augmentation. augmentation. T/P Trunk is compressible. T/P Trunk is compressible. PTV is compressible. PTV is compressible. RT PerV is compressible. LT PerV is compressible. Non vascularized anechoic area measuring approximately 5.97cm x 2.16 cm is noted in Incidental Finding. the Rt pop fossa. Lt Fem-POP BPG Prox anastomosis velocities Procedure appear elevated. This is a venous duplex using B-mode, color flow and spectral Doppler. BPG Prox Anastomosis PSV/EDV = Exam performed in department. 601.9/367.5cm/sec The exam was diagnostic. A preliminary report was called and/or faxed BPG Prox Graft PSV/EDV = 19.5/11.1 cm/sec to Ella HERNANDEZ. Lt POP A PSV/EDV = 14.5/9.8 cm/sec. VL/Venous Duplex US - Alexandr Extrem Interpretation Summary Deep veins of the bilateral lower extremities are patent and compressible segme ntally. There is no evidence of bilateral lower extremity deep vein thrombosis. The right great sap henous vein appears patent and compressible segmentally. Incidental finding, >75% stenosis of left femoral-popliteal bypass at proximal anastomosis Ordering Physician: Ella Rosales Referring Physician: Nate Gray M.D. Performed By: Sam Mi RVT
== END | disposition home or self-care (01) ==
LOC: CVS 10:29
PROVIDERS: PCP Internal Medicine; Visit Provider Physician Assistant
DX: M79.604 Pain in right leg (principal); M79.605 Pain in left leg
CPT/HCPCS: 93970

== ENCOUNTER 2024-03-26 08:19 | Day surgery (SDC) | payer MEDICARE, MEDICAID, SELFPAY ==
[2024-03-25 08:23] VITALS: BMI 32.5
[2024-03-26 08:54] LABS: Hematocrit 23.5 % (37-47); Hemoglobin 7.1 g/dL (12.0-15.0); Mean Corp Hgb Conc 30.2 g/dL (32-36); Mean Corpuscular Hgb 26.2 pg (27.0-32.0); Mean Corpuscular Volume 86.7 fL (81-99); Mean Platelet Vol. 9.4 fl (6.2-12.0); Platelet Count 387 K/mm3 (150-450); RBC Distribution Width CV 17.4 % (11.6-14.6); RBC Distribution Width SD 54.3 fl (35.1-43.9); Red Blood Count 2.71 M/mm3 (4.2-5.4); White Blood Count 10.6 K/mm3 (4.4-11.0)
[2024-03-26 09:38] LABS: Anion Gap 3 (5-15); BUN 25 mg/dL (7-18); BUN/Creat Ratio 29.2 RATIO (10-20); Calcium,Total 8.9 mg/dL (8.5-10.1); Chloride 106 mmol/L (98-107); Creatinine, Serum 0.86 mg/dL (0.55-1.02); EST Glomerular Filtration Rate 70 mL/min (>60); Est Glom Filt Rate - Afr Amer 85 mL/min (>60); Estimated Creatinine Clearance 55.08 ml/min; Glucose 107 mg/dL (74-106); Potassium 4.4 mmol/L (3.5-5.1); Sodium Level 134 mmol/L (136-145)
--- NOTE | 2024-03-26 12:01 | OP.PCM_ITS ---
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, l eft lower extremity Post-Operative Diagnosis: same Surgery/Procedure Performed:: aortogram, LLE Runoff IVUS right external iliac/common femoral, left common iliac, external iliac, femoral-popliteal angioplasty proximal saphenous vein bypass Surgeon: Alec Lopez Type of Anesthesia: Local and Sedation,Conscious Estimated Blood Loss (mL): 10 Description of Procedure: HPI: Patient is a 69-year-old female who was undergone multiple efforts at lower extremity revascularization bilaterally, including bilateral iliac stents, bilateral common femoral endarterectomies, left SFA popliteal percutaneous interventions, and most recently a left femoral to below-knee popliteal bypass. Her initial duplex revealed high-grade stenosis greater than 75% of the proximal bypass graft just beyond the anastomosis with significantly diminished velocity and amplitude of waveforms distal to this in the bypass graft. She is taken now for angiogram with possible intervention. Description of procedure: Upon obtaining informed consent and verification. Patient procedure site patient taken to the catheter she was positioned prepped and draped in the usual sterile fashion. Time was performed conscious sedation ministered Versed and fentanyl and skin overlying the right common femoral was anesthetized 1% lidocaine. Under ultrasound guidance the vessel was accessed with a micropuncture needle removed and exchanged out from a puncture sheath. Through the micropuncture sheath a Seebrightson wire was advanced into the abdominal aorta the fluoroscopic guidance and the micropuncture sheath exchanged for 6 Bel[place]ian sheath which would not cross the scar femoral vessel. Multiple efforts were made with serial dilators but ultimately we advanced a glide catheter bareback over the wire and exchanged for the glide advantage wire over which we were able to successfully advance the 6 Bel[place]ian sheath. Through the 6 [place]ian sheath Omni Flush catheter advanced into the abdominal aorta and digital traction aortogram pelvic angiogram was performed. We then navigated into the contralateral iliac system with the Omni Flush catheter advancing into the distal external iliac artery. From this position subtraction angiography was performed sequential left lower extremity. This confirmed high-grade stenosis of the proximal bypass with only triple contrast transit into the distal bypass graft. Through the Omni Flush catheter advantage wire was readvanced and the the right short 6 Belarusian exchanged for a 6 Bel[place]ian Ansell sheath was then positioned in the distal contralateral iliac artery. Patient was then heparinized and then using a glide catheter and a command 18 wire we are able to successfully cannulate the bypass. Advancing a wire catheter beyond the area of stenosis. The wire was then withdrawn hand-injection subtraction angiography performed which confirmed position within the bypass graft or stenosis. The command 18 wire was then readvanced and the common catheter exchanged for a intravascular ultrasound probe was advanced over the wire and recorded pullback performed popliteal bypass graft, left common femoral artery and left external iliac artery. This confirmed greater than 90% stenosis proximal bypass graft just beyond the anastomosis also revealed moderate atherosclerotic plaque in the common femoral and external iliac artery with no significant stenosis. A 2.5 mm x 40 serranator scoring balloon was then advanced over the wire and inflated to nominal for multiple inflations across the the area of stenosis. Repeat angiography and intravascular ultrasound assessment revealed no extravasation of dissection with improved contrast transit however still significant stenosis present. Next angioplasty with a 3 mm Reina balloon inflated to nominal for 3 minutes then deflated and withdrawn. This is then followed by the 3 mm Spectranetics AngioSculpt balloon. Repeat angiography revealed gradual improvement in caliber of the proximal bypass no extravasation or dissection. Finally a 4 mm x 40 Spectranetics paclitaxel angioplasty balloon was advanced position inflated to nominal for 2 minutes then deflated and withdrawn. Completion angiography confirmed satisfactory response of the lesion with no residual stenosis and brisk contrast transit through the bypass. Distally the bypass improved in caliber with with the increased pressurized flow and transit of contrast into the outflow popliteal artery and tibial vessels revealed no significant stenosis or occlusive lesions. Intravascular shunt probe was then readvanced over the wire and the sheath withdrawn back to the aortic bifurcation. Recorded pullback was then performed in the left external iliac artery and the left common iliac artery which revealed patent stents with no significant stenosis. During the initial aortogram there was noted to be no an tegrade flow across the distal external artery and common femoral artery on the right so the 6 Belarusian sheath was then exchanged out for a short 6 Belarusian sheath was then positioned in the common femoral artery. Injection femoral angiography confirmed stenosis at the distal external iliac stent. Intravascular ultrasound probe was then readvanced and recorded pullback performed of the external iliac and common femoral which revealed moderate stenosis external 50% of the proximal common femoral/distal external iliac artery. Given location and no access site is felt that any intervention would not be feasible and the patient this point has no significant risk of vessel occlusion or going symptoms on the right. Mynx closure device was then applied followed by 2 minutes manual pressure with satisfactory stasis noted. The patient was then taken to the recovery room for bedrest prior to discharge home.
[2024-04-30 12:01] LABS: ACT Activated Clotting Time 213 sec (74-137)
[2024-04-30 12:02] LABS: ACT Activated Clotting Time 201 sec (74-137)
== END 2024-03-26 15:30 | disposition home or self-care (01) ==
PROVIDERS: PCP Internal Medicine; Referring Provider Surgery Trauma Surgery; Visit Provider Surgery Trauma Surgery
DX: I70.422 Atherosclerosis of autologous vein bypass graft(s) of the extremities with rest pain, left leg (principal); J44.9 Chronic obstructive pulmonary disease, unspecified; I10 Essential (primary) hypertension; E78.5 Hyperlipidemia, unspecified; F17.210 Nicotine dependence, cigarettes, uncomplicated; Z79.51 Long term (current) use of inhaled steroids; Z79.82 Long term (current) use of aspirin; Z79.899 Other long term (current) drug therapy; Z86.718 Personal history of other venous thrombosis and embolism
CPT/HCPCS: 36200; 36415; 37224; 37252; 37253; 75625; 76937; 80048; 85027; 85347; 99152; 99153; C1725; C1760; C1769; C2623; Q9967; C1887

== ENCOUNTER → 2024-04-17 | Outpatient (CLI) | payer MEDICARE, MEDICAID, SELFPAY ==
--- NOTE | 2024-04-17 14:03 | ADU_ITS ---
Reason For Study: FEM-POP BYPASS Right Velocities Left Velocities Ext. Iliac Artery, dist = 213.3 cm./sec. Ext Iliac Artery, dist = 108.4 cm./sec. Common Femoral Artery, mid = 195.8 cm./sec. Common Femoral Artery, mid = 216.3 cm./sec. Prox SFA is occluded. Branch feeding mid/dist SFA.Lt SFA-POP BPG Supf Femoral Artery, mid = 96.4 cm./sec. Prox Anastamosis- 375.8 cm/s Supf Femoral Artery, dist. = 61.9 cm./sec. Prox Graft- 236.3 cm/s Profunda Femoral Artery = 250.2 cm./sec. Prox/Mid Graft- 140.8 cm/s Popliteal Artery, mid = 52.7 cm./sec. Mid Graft- 89.8 cm/s Post. Tibial Artery, prox = 60.0 cm./sec. Dist Graft- 73.6 cm/s Post. Tibial Artery, mid = 82.0 cm./sec. Dist Anastomosis- 168.2 cm/s Post. Tibial Artery, dist = 61.3 cm./sec. Post Graft (Dist Donald)- 106.8 cm/s Peroneal Artery, prox = 32.9 cm./sec. Retrograde flow noted in prox Pop A. Peroneal Artery, mid = 19.7 cm./sec. Profunda Femoral Artery = 245.3 cm./sec. Peroneal Artery,dist = 17.9 cm./sec. Post. Tibial Artery, prox = 101.4 cm./sec. Ant. Tibial Artery, prox = 43.4 cm./sec. Post Tibial Artery, mid = 101.4 cm./sec. Ant. Tibial Artery, mid = 33.0 cm./sec. Post Tibial Artery, dist. = 80.6 cm./sec. Ant. Tibial Artery, dist = 28.2 cm./sec. Peroneal Artery, prox = 44.9 cm./sec. Peroneal Artery, mid = 63.4 cm./sec. Peroneal Artery,dist. = 73.2 cm./sec. Ant.Tibial Artery, prox = 92.8 cm./sec. Ant Tibial Artery, mid = 65.8 cm./sec. Ant. Tibial Artery, distal = 54.8 cm./sec. Procedure Exam performed in department. VL/US Art Duplex Bilat Lower Ext Interpretation Summary Right lower extremity with proximal superficial femoral artery occlusion with r econstitution of mid superficial femoral. Left lower extremity with patent femoral-popliteal bypass with improved velocit ies in proximal graft now with 21-49% stenosis. Ordering Physician: Ella Rosales Referring Physician: Nate Gray M.D. Performed By: Gris Jung RVT and Student
--- NOTE | 2024-04-17 14:03 | ART_ITS ---
Reason For Study: FEM-POP BYPASS Procedure A bilateral lower extremity continuous wave Doppler with analog waveform analysis and ankle brachial indexes. Left Segmental Pressures Left brachial= 144mmHg. Left posterior tibial artery = 129mmHg. Left dorsalis pedis artery = 128mmHg. Left digit = 62 mmHg. The left dorsalis pedis waveforms are biphasic. The left posterior tibial artery waveforms are biphasic. Right Segmental Pressures Right brachial= 146mmHg. Right posterior tibial artery = 104mmHg. Right dorsalis pedis artery = 86mmHg. Right digit = 55 mmHg. The right dorsalis pedis waveforms are biphasic. The right posterior tibial artery waveforms are monophasic. Indices The right ankle brachial index by the dorsalis pedis is 0.59. The right ankle brachial index by the posterior tibial artery is 0.71. The right digital-brachial index is 0.38. The left ankle brachial index by the dorsalis pedis is 0.88. The left ankle brachial index by the posterior tibial artery is 0.88. The left digital-brachial index is 0.42. VL/Ankle Brachial Index Interpretation Summary Right SHAKIR 0.71, moderate arterial insufficiency. Doppler/PVR waveforms of the r ight ankle moderately diminished at rest. Left SHAKIR 0.88, moderate arterial insufficiency. Doppler/PVR waveforms of the le ft ankle mildly diminished at rest. Ordering Physician: Ella Rosales Referring Physician: Nate Gray M.D. Performed By: Gris Jung RVT and Student
== END | disposition home or self-care (01) ==
LOC: CVS 14:02
PROVIDERS: PCP Internal Medicine; Referring Provider Physician Assistant; Visit Provider Physician Assistant
DX: Z48.812 Encounter for surgical aftercare following surgery on the circulatory system (principal)
CPT/HCPCS: 93922; 93925

== ENCOUNTER → 2024-06-02 | Outpatient (CLI) | payer MEDICARE, MEDICAID, SELFPAY ==
--- NOTE | 2024-06-02 12:51 | ART_ITS ---
Reason For Study: S/P Lt Fem-Pop BPG Procedure A bilateral lower extremity continuous wave Doppler with analog waveform analysis and ankle brachial indexes. Left Segmental Pressures Left brachial= 156mmHg. Left posterior tibial artery = 111mmHg. Left dorsalis pedis artery = 101mmHg. Left digit = 78 mmHg. The left posterior tibial artery waveforms are biphasic. The left dorsalis pedis waveforms are monophasic. Right Segmental Pressures Right brachial= 142mmHg. Right posterior tibial artery = 110mmHg. Right dorsalis pedis artery = 96mmHg. Right digit = 70 mmHg. The right posterior tibial artery waveforms are biphasic. The right dorsalis pedis waveforms are biphasic. Indices The right ankle brachial index by the posterior tibial artery is 0.71. The right ankle brachial index by the dorsalis pedis is 0.62. The right digital-brachial index is 0.45. The left ankle brachial index by the posterior tibial artery is 0.71. The left ankle brachial index by the dorsalis pedis is 0.65. The left digital-brachial index is 0.50. VL/Ankle Brachial Index Interpretation Summary Right SHAKIR 0.71, moderate arterial insufficiency. Doppler/PVR waveforms of the r ight ankle moderately diminished at rest. Left SHAKIR 0.71, moderate arterial insufficiency. Doppler/PVR waveforms of the le ft ankle moderately diminished at rest. Ordering Physician: Ella Rosales Referring Physician: Nate Gray M.D. Performed By: Sam Mi, RVT
--- NOTE | 2024-06-02 12:51 | ADUL_ITS ---
Reason For Study: S/P Lt Fem-Pop BPG Left Velocities Ext Iliac Artery, dist = 91.5 cm./sec. Common Femoral Artery, mid = 82.7 cm./sec. Lt SFA appears occluded at proximal vessel. Lt Fem-Pop BPG noted. Lt BPG Anastomosis PSV - 615.5 cm/s Lt BPG 2-3 cm distal to anastomosis PSV - 204.2cm/s Turbulent waveform noted. Lt prox BPG PSV - 41.6 cm/s Lt mid BPG PSV - 42.4 cm/s Lt dist BPG PSV - 38.6 cm/s Lt Dist Anastomosis - 85.6 cm/s. Profunda Femoral Artery = 324.5 cm./sec. Post. Tibial Artery, prox = 39.5 cm./sec. Post Tibial Artery, mid = 25.2 cm./sec. Post Tibial Artery, dist. = 20.0 cm./sec. Peroneal Artery, prox = 27.8 cm./sec. Peroneal Artery, mid = 19.1 cm./sec. Peroneal Artery,dist. = 15.6 cm./sec. Ant.Tibial Artery, prox = 33.1 cm./sec. Ant Tibial Artery, mid = 23.5 cm./sec. Ant. Tibial Artery, distal = 22.6 cm./sec. Procedure LLE Arterial Duplex with B-Mode, Color and Pulsed Wave Doppler. The exam was diagnostic. Exam performed in department. VL/US Art Duplex Unilat Lower Ext Interpretation Summary Left femoral-popliteal bypass patent with >75% stenosis of proximal graft. Ordering Physician: Ella Rosales Referring Physician: Nate Gray Performed By: Sam Mi, RVAlex
== END | disposition home or self-care (01) ==
PROVIDERS: PCP Internal Medicine; Referring Provider Physician Assistant; Visit Provider Physician Assistant
DX: I70.222 Atherosclerosis of native arteries of extremities with rest pain, left leg (principal); Z95.828 Presence of other vascular implants and grafts; I77.9 Disorder of arteries and arterioles, unspecified
CPT/HCPCS: 93922; 93926

== ENCOUNTER 2024-06-10 16:31 | Observation (INO) | payer MEDICARE, SELFPAY ==
[2024-06-10] VITALS (15 sets, daily range): BP systolic 121–168; BP diastolic 70–100; PULSE 77–104; RESP 16–28; TEMP 36.1–36.8; O2SAT 90–99; BMI 33.2; BMI 33.1
--- NOTE | 2024-06-10 11:31 | EKG12_ITS ---
Test Reason : PREOP Blood Pressure : / mmHG Vent. Rate : 084 BPM Atrial Rate : 084 BPM P-R Int : 148 ms QRS Dur : 070 ms QT Int : 338 ms P-R-T Axes : -25 070 043 degrees QTc Int : 399 ms Normal sinus rhythm Normal ECG When compared with ECG of 06-NOV-2023 15:47, No significant change was found Confirmed by AFIA KULKARNI, SHERIF ([id number]), website/blog editor DRISS GOMEZ ([id number]) on 06/16/2024 2:50:26 PM Referred By: Alec Lopez Confirmed By:SHERIF OREILLY MD
[2024-06-10 13:08] LABS: Hematocrit 28.1 % (37-47); Hemoglobin 8.1 g/dL (12.0-15.0); Mean Corp Hgb Conc 28.8 g/dL (32-36); Mean Corpuscular Hgb 22.9 pg (27.0-32.0); Mean Corpuscular Volume 79.6 fL (81-99); Mean Platelet Vol. 8.9 fl (6.2-12.0); Platelet Count 416 K/mm3 (150-450); RBC Distribution Width CV 17.1 % (11.6-14.6); RBC Distribution Width SD 48.2 fl (35.1-43.9); Red Blood Count 3.53 M/mm3 (4.2-5.4); White Blood Count 9.1 K/mm3 (4.4-11.0)
--- NOTE | 2024-06-10 13:39 | PCM.PRE.AN2 ---
ASA Classification* ASA Classification ASA Classification: 3 Assessment & Plan Anesthesia* Anesthesia Assessment Anesthesia Assessment: Discussed sedation and/or anesthesia options, risks, benefits, and alternatives with patient/parents/legal guardian/POA. Questions invited. The patient/parents/legal guardian/POA seems to understand and agrees to proceed with anesthesia plan. Reviewed the physical assessment, medical history, allergy history and patient home medications list prior to surgery/procedure/anesthetic and documented any changes. Performed airway and anesthesia risk assessments. Anesthesia Type Anesthesia Type: General (see written pre anesthesia record for full assessment) Anesthesia Focused Assessment* Temperature: 97.6 F Pulse Rate: 87 Blood Pressure: 153/75 Respiratory Rate: 16 Pulse Ox: 99 Airway Assessment Mouth opens: >3 cm Mallampati Score: II Focused Labs Anesthesia Preop lab: CBC WBC 9.1 K/mm3 (4.4-11.0) 06/10/24 12:53 RBC 3.53 M/mm3 (4.2-5.4) L 06/10/24 12:53 Hgb 8.1 g/dL (12.0-15.0) L 06/10/24 12:53 Hct 28.1 % (37-47) L 06/10/24 12:53 Plt Count 416 K/mm3 (150-450) 06/10/24 12:53 CHEMISTRY Potassium 4.4 mmol/L (3.5-5.1) 03/26/24 08:28 Sodium 134 mmol/L (136-145) L 03/26/24 08:28 Magnesium 2.3 mg/dL (1.6-2.6) 02/18/24 04:08 Phosphorus 4.0 mg/dL (2.5-4.9) 02/18/24 04:08 BUN 25 mg/dL (7-18) H 03/26/24 08:28 Creatinine 0.86 mg/dL (0.55-1.02) 03/26/24 08:28 Glucose 107 mg/dL (74-106) H 03/26/24 08:28 TSH 0.31 uIU/mL (0.358-3.74) L 11/07/23 08:44 COAG PT 12.3 SECONDS (11.7-14.9) 02/04/24 06:16 Pre-Assessment Diagnosis/Proposed Procedure Planned Operative Procedure(s): (L) revision left Fem-Pop Bypass Anesthesia History Anesthesia History - manager medicaid: Anesthesia History - manager medicaid Hx Hospitalization Yes: 10/2023 FOR COVID, 06/05/24 09:54 2023 STOMACH PAIN Any Problems With Anesthesia Yes: PATIENT WAKES UP 06/05/24 09:54 COMBATIVE Cholinesterase deficiency No 06/05/24 09:54 You/Your Family Experience No 06/05/24 09:54 fever (hyperthermia) with Relationship Recent Exposure to Contagious No 06/10/24 12:04 Disease Does patient have nerve No 06/05/24 09:54 stimulator Patient instructed to have device shut off --Does patient have Pacemaker No 06/10/24 12:04 or ICD? When Was Last Pacemaker Check QUESTION #4 FULL TEXT: You/Your Family Experience fever (hyperthermia) with Anesthesia Last Oral Intake Last Oral intake: Last Oral Intake NPO since 08:30 06/10/24 12:04 Meds taken in AM with sips of Yes 06/10/24 12:04 water? Meds patient instructed to see medlist 06/10/24 12:04 take am of surgery PONV PONV - manager medicaid: PONV - manager medicaid Female Yes 06/05/24 09:54 HX of Motion Sickness No 06/05/24 09:54 HX of N/V After Surgery No 06/05/24 09:54 Non-Smoker No 06/05/24 09:54 Duration of Surgery greater Yes 06/05/24 09:54 than 60 minutes Number of Risk Factors 2 06/05/24 09:54 PONV Score Moderate Risk 06/05/24 09:54 Height & Weight Height & Weight: Anesthesia: Height & Weight Height 4 ft 11 in 06/10/24 12:04 Weight: 74.6 kg 06/10/24 12:04 Body Mass Index (BMI) 33.2 06/10/24 12:04 Respiratory Assessment Respiratory Assessment - manager medicaid: Respiratory Tract Infection Hx - manager medicaid Hx Respiratory Tract Infection No 06/05/24 09:54 STOP Sleep Apnea STOP Sleep Apnea - manager medicaid: STOP Sleep Apnea - manager medicaid Hx Hypertension Yes 06/05/24 09:54 Hx Sleep Apnea No 06/05/24 09:54 CPAP No 06/05/24 09:54 BIPAP No 06/05/24 09:54 Do you snore loudly (louder No 06/05/24 09:54 than talking or can be heard Do you often feel tired/ No 06/05/24 09:54 fatigued/ sleepy during daytime? Has anyone observed you stop No 06/05/24 09:54 breathing during sleep? STOP Results Negative 06/05/24 09:54 QUESTION #5 FULL TEXT : Do you snore loudly (louder than talking or can be heard through closed doors)? Tobacco Use History Tobacco Use History - manager medicaid: Tobacco Use History - manager medicaid Tobacco Use Cigarettes 03/31/24 12:07 Smoking Status Current some day smoker 06/05/24 09:54 Hx Tobacco Use Yes 06/05/24 09:54 Years Smoking Packs Smoked per Day Smoking Cessation Date was within the last 15 years Hx Smoking Cessation Date Hx Smoking Cessation No: . 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 Specify any problems Hx of Preganancy in last 3 N/A 06/05/24 09:54 Months Nurse Filling Out Transfusion NBUCHER 06/05/24 09:54 & Questions: Date: 06/05/24 06/05/24 09:54 Time: 09:55 06/05/24 09:54 Patient unable to answer at this time (ie. confused, unrespo /Reproduction History /Reproductive History - manager medicaid: /Reproductive Hx- manager medicaid Hx Now No 06/05/24 09:54 Gestational Age (in weeks): EDC: Hx Hx Para Hx Section SAB No 06/05/24 09:54 Active Medications Active Medications: Current Medications Generic Name Dose Route Start Last Admin Trade Name Freq PRN Reason Stop Dose Admin Cefazolin Sodium 2 gm/ Sodium 110 mls @ 150 mls/hr 06/10/24 13:30 Chloride IV 06/10/24 14:13 PREOP ONE Lactated Ringer's 1,000 mls @ 15 mls/hr 06/10/24 11:45 IV .Q48H LAMAR PFSH Medical History Decrease in appetite Wears hearing aid History of steroid therapy Arthritis PVD (peripheral vascular disease) Syncope Dietary restriction Gastric reflux Leg cramps Anxiety disorder Wears dentures Low iron High cholesterol History of ulceration On home oxygen therapy Post-menopausal Diverticulitis Back pain due to injury Chronic headaches History of stress test Wears glasses Chronic pain Shortness of breath Smoker History of cardiovascular stress test Leg pain S/P arteriogram of extremity Essential hypertension COPD (chronic obstructive pulmonary disease) Incisional hernia without mention of obstruction or gangrene Impaired fasting glucose History of pelvic hematoma Duodenal ulcer Clostridium difficile colitis Closed fracture of fifth metatarsal bone of left foot Injury, spleen, with capsular tears Pseudocyst of pancreas Peptic ulcer disease SBO (small bowel obstruction) H/O spleen injury Asthma Hyperlipemia Alcohol abuse Home Medications ?Medication ?Instructions ?Recorded ?Last Taken ?Type carvedilol 25 mg tablet 25 mg PO BID HEART 05/28/19 06/10/24 History spironolactone 25 mg tablet 25 mg PO DAILY BLOOD PRESSURE 05/28/19 06/09/24 History alprazolam 0.5 mg tablet 0.5 mg PO TID ANXIETY 02/12/21 06/10/24 History psyllium 1 packet PO DAILY PRN CONSTPATION 02/12/21 Unknown History acetaminophen 500 mg tablet 1,000 mg PO Q6H PRN PAIN 07/19/22 02/03/24 History pantoprazole 40 mg tablet,delayed 40 mg PO BID GERD 30 days #60 tabs 10/12/22 06/10/24 Rx release guaifenesin 1,200 mg tablet, 1,200 mg PO BID PRN MUCOUS 07/02/23 06/10/24 History extended release 12 hr (Mucinex) lisinopril 40 mg tablet 40 mg PO QHS BLOOD PRESSURE 07/14/23 06/09/24 History aspirin 81 mg tablet,delayed 81 mg PO BREAKFAST HEART HEALTH 07/19/23 06/10/24 Rx release #0 tabs gabapentin 600 mg tablet 600 mg PO 4X/DAY NERVE PAIN 11/06/23 06/10/24 History tramadol 50 mg tablet 50 mg PO 4X/DAY PRN PAIN 11/06/23 06/10/24 History albuterol sulfate 90 mcg/actuation 2 puff inhalation Q4H PRN 11/15/23 02/03/24 Rx aerosol inhaler (Ventolin HFA) shortness of breath or wheezing #18 grams fluticasone fur. 200 mcg-umeclid 1 inh inhalation DAILY ASTHMA #60 11/15/23 06/10/24 Rx 62.5 mcg-vilant 25 mcg ea inhalat.powder (Trelegy Ellipta) clopidogrel 75 mg tablet 75 mg PO DAILY BLOOD THINNER #90 11/21/23 06/10/24 Rx tabs multivitamin with minerals-folic 1 tab PO DAILY SUPPLEM 01/30/24 06/10/24 History acid 80 mcg chewable tablet (Centrum Adult 50 Plus) atorvastatin 80 mg tablet 80 mg PO QHS CHOLESTEROL #90 tabs 02/27/24 06/09/24 Rx Allergy/AdvReac Type Severity Reaction Status Date / Time amlodipine AdvReac Intermediate Nausea/Vom/ Verified 06/10/24 12:00 Diarrhea clonidine AdvReac Mild Nausea/Vom/ Verified 06/10/24 12:00 Diarrhea adhesive AdvReac Rash Verified 06/10/24 12:00 codeine AdvReac Nausea Verified 06/10/24 12:00 Family History Mother Heart disease Hypertension Diabetes Sister Hypertension Brother Hypertension Sister Hypertension Cervical cancer Brother Pancreatic cancer Surgical History History of esophagogastroduodenoscopy (EGD) Hx of colonoscopy Hx of cervical spine surgery H/O: H/O colostomy History of hernia repair Social History household members: spouse housing: house Smoking Status: Current some day smoker tobacco type: cigarettes Electronic Cigarette Use: not used second hand exposure: Yes alcohol intake: current alcohol intake frequency: a few times a week substance use type: does not use caffeine: Yes what type of physical activity do you participate in: bicycling frequency: 1-2 times per week Review of Systems (Anesthesia) ROS Narrative System reviewed and no additional complaints, except as documented.
[2024-06-10 13:40] LABS: Anion Gap 8 (5-15); BUN 14 mg/dL (7-18); BUN/Creat Ratio 17.4 RATIO (10-20); Calcium,Total 9.4 mg/dL (8.5-10.1); Chloride 106 mmol/L (98-107); Creatinine, Serum 0.81 mg/dL (0.55-1.02); EST Glomerular Filtration Rate 75 mL/min (>60); Est Glom Filt Rate - Afr Amer 91 mL/min (>60); Estimated Creatinine Clearance 59.13 ml/min; Glucose 80 mg/dL (74-106); Potassium 4.7 mmol/L (3.5-5.1); Sodium Level 136 mmol/L (136-145)
[2024-06-10] MEDS: Heparin Injection (Vial) 5,000 UNIT/ML VIAL 5000 UNIT (13:51)
[2024-06-10] MEDS: Bupivacaine Mpf 0.5% 30 ML VIAL (13:51)
[2024-06-10] MEDS: Heparin 10,000 UNITS/10 ML Vial 10000 UNITS (13:51)
--- NOTE | 2024-06-10 13:55 | PCM.HP.STD ---
HPI - General HPI Narrative BAHMAN MICHELE, is a 69 F who presents with recurrent stenosis of prior left fem-pop bypass just beyond the proximal anastomosis. Denies any new rest pain, claudication or foot wounds. PFSH Medical History Decrease in appetite Wears hearing aid History of steroid therapy Arthritis PVD (peripheral vascular disease) Syncope Dietary restriction Gastric reflux Leg cramps Anxiety disorder Wears dentures Low iron High cholesterol History of ulceration On home oxygen therapy Post-menopausal Diverticulitis Back pain due to injury Chronic headaches History of stress test Wears glasses Chronic pain Shortness of breath Smoker History of cardiovascular stress test Leg pain S/P arteriogram of extremity Essential hypertension COPD (chronic obstructive pulmonary disease) Incisional hernia without mention of obstruction or gangrene Impaired fasting glucose History of pelvic hematoma Duodenal ulcer Clostridium difficile colitis Closed fracture of fifth metatarsal bone of left foot Injury, spleen, with capsular tears Pseudocyst of pancreas Peptic ulcer disease SBO (small bowel obstruction) H/O spleen injury Asthma Hyperlipemia Alcohol abuse Home Medications ?Medication ?Instructions ?Recorded ?Last Taken ?Type carvedilol 25 mg tablet 25 mg PO BID HEART 05/28/19 06/10/24 History spironolactone 25 mg tablet 25 mg PO DAILY BLOOD PRESSURE 05/28/19 06/09/24 History alprazolam 0.5 mg tablet 0.5 mg PO TID ANXIETY 02/12/21 06/10/24 History psyllium 1 packet PO DAILY PRN CONSTPATION 02/12/21 Unknown History acetaminophen 500 mg tablet 1,000 mg PO Q6H PRN PAIN 07/19/22 02/03/24 History pantoprazole 40 mg tablet,delayed 40 mg PO BID GERD 30 days #60 tabs 10/12/22 06/10/24 Rx release guaifenesin 1,200 mg tablet, 1,200 mg PO BID PRN MUCOUS 07/02/23 06/10/24 History extended release 12 hr (Mucinex) lisinopril 40 mg tablet 40 mg PO QHS BLOOD PRESSURE 07/14/23 06/09/24 History aspirin 81 mg tablet,delayed 81 mg PO BREAKFAST HEART HEALTH 07/19/23 06/10/24 Rx release #0 tabs gabapentin 600 mg tablet 600 mg PO 4X/DAY NERVE PAIN 11/06/23 06/10/24 History tramadol 50 mg tablet 50 mg PO 4X/DAY PRN PAIN 11/06/23 06/10/24 History albuterol sulfate 90 mcg/actuation 2 puff inhalation Q4H PRN 11/15/23 02/03/24 Rx aerosol inhaler (Ventolin HFA) shortness of breath or wheezing #18 grams fluticasone fur. 200 mcg-umeclid 1 inh inhalation DAILY ASTHMA #60 11/15/23 06/10/24 Rx 62.5 mcg-vilant 25 mcg ea inhalat.powder (Trelegy Ellipta) clopidogrel 75 mg tablet 75 mg PO DAILY BLOOD THINNER #90 11/21/23 06/10/24 Rx tabs multivitamin with minerals-folic 1 tab PO DAILY SUPPLEM 01/30/24 06/10/24 History acid 80 mcg chewable tablet (Centrum Adult 50 Plus) atorvastatin 80 mg tablet 80 mg PO QHS CHOLESTEROL #90 tabs 02/27/24 06/09/24 Rx Allergy/AdvReac Type Severity Reaction Status Date / Time amlodipine AdvReac Intermediate Nausea/Vom/ Verified 06/10/24 12:00 Diarrhea clonidine AdvReac Mild Nausea/Vom/ Verified 06/10/24 12:00 Diarrhea adhesive AdvReac Rash Verified 06/10/24 12:00 codeine AdvReac Nausea Verified 06/10/24 12:00 Family History Mother Heart disease Hypertension Diabetes Sister Hypertension Brother Hypertension Sister Hypertension Cervical cancer Brother Pancreatic cancer Surgical History History of esophagogastroduodenoscopy (EGD) Hx of colonoscopy Hx of cervical spine surgery H/O: H/O colostomy History of hernia repair Social History household members: spouse housing: house Smoking Status: Current some day smoker tobacco type: cigarettes Electronic Cigarette Use: not used second hand exposure: Yes alcohol intake: current alcohol intake frequency: a few times a week substance use type: does not use caffeine: Yes what type of physical activity do you participate in: bicycling frequency: 1-2 times per week ROS Constitutional Constitutional: Denies chills, fever(s), frequent falls, lethargy or weakness Eyes Eyes: Denies blind spots, change in vision or loss of vision ENT HEENT: Denies bleeding gums, hoarseness or sore throat Cardiovascular Cardiovascular: Denies abdominal pain, bluish discoloration of hand/feet, chest pain with activity, claudication, cold extremities, cyanosis, dyspnea on exertion, erythema on extremities, irregular heart rhythm, leg edema, leg ulcers, numbness in extremities or weakness in extremities Respiratory/Chest Respiratory/Chest: Denies cough, excessive phlegm production, shortness of breath at rest, shortness of breath with exertion or wheezing Gastrointestinal Gastrointestinal: Denies anorexia, change in stool character, constipation, diarrhea, melena or rectal bleeding Genitourinary Genitourinary: Denies dysuria or hematuria Musculoskeletal Musculoskeletal: Denies abnormal gait Integumentary Integumentary: Reports other Details: ; Denies erythema, non-healing lesions or wounds Neurologic Neurologic: Denies abnormal speech, focal weakness, headache(s), loss of vision, numbness, paresthesias or sensory deficit Hematologic/Lymphatic Hematologic/Lymphatic: Denies easy bleeding, easy bruising or lymphadenopathy Vital Signs Vital Signs Vital Signs: 06/10/24 12:04 06/10/24 12:04 06/10/24 13:39 Temperature 97.6 F L 97.6 F L Temperature Source Temporal Pulse Rate 87 87 Respiratory Rate 16 16 Respiratory Pattern Normal Blood Pressure 153/75 H 153/75 H Blood Pressure Mean 101 Blood Pressure Source Monitor Blood Pressure Position Semi-Fowlers Blood Pressure Location Right Arm Pulse Ox 99 99 Oxygen Delivery Method Room Air Weight Weight: 164 lb 7.437 oz Body Mass Index (BMI) 33.2 Physical Exam Const alert, oriented x3, no apparent distress and healthy appearing General Appearance: cooperative; Negative for combative or lethargic Orientation / Consciousness: awake Exam Limitations: no limitations HEENT Head and Scalp: normocephalic and atraumatic Eyes EOMs intact bilaterally General Eye: normal appearance of both eyes Neck full ROM, no lymphadenopathy and thyroid normal General: trachea midline; Negative for lymphadenopathy or tenderness Thyroid: thyroid normal Resp normal respiratory effort and no use of accessory muscles Effort and Inspection: Negative for labored, stridor or audible wheezes Cardio regular rate and regular rhythm Back/Spine Cervical Spine: cervical ROM normal Extremity full ROM, normal capillary refill and no clubbing, cyanosis or edema Skin no rashes or lesions noted and no wounds Neuro oriented x3, CN's II-XII intact bilaterally, no focal motor deficits and no sensory deficits noted Psych thought process normal, cooperative, affect normal, speech normal and activity/motor behavior normal Results Lab / Micro Data 06/10/24 12:53 06/10/24 12:53 Labs: Laboratory Results - last 24 hr 06/10/24 12:53: WBC 9.1, RBC 3.53 L, Hgb 8.1 L, Hct 28.1 L, MCV 79.6 L, MCH 22.9 L, MCHC 28.8 L, RDW Std Deviation 48.2 H, RDW Coeff of Renea 17.1 H, Plt Count 416, MPV 8.9, Sodium 136, Potassium 4.7, Chloride 106, Carbon Dioxide 22.0, Anion Gap 8, BUN 14, Creatinine 0.81, Estim Creat Clear Calc 59.13, Est GFR (MDRD) Af Amer 91, Est GFR (MDRD) Non-Af 75, BUN/Creatinine Ratio 17.4, Glucose 80, Calcium 9.4, Blood Type A POSITIVE, Antibody Screen NEGATIVE Assessment & Plan Assessment/Plan (1) S/P femoral-popliteal bypass surgery: PLAN: -revision with planned patch angioplasty
[2024-06-10] MEDS: Cefazolin 2 GM in 0.9% Normal Saline (100mL Bag) 100 ML IV (14:20)
--- NOTE | 2024-06-10 16:42 | OP.PCM_ITS ---
Report of Operation Date of Procedure: 06/10/24 Pre-Operative Diagnosis: stenosis of prior saphenous vein femoral-popliteal byp ass Post-Operative Diagnosis: same Surgery/Procedure Performed:: revision femoral popliteal bypass with endarterectomy/patch of proximal graft Surgeon: Alec Lopez Type of Anesthesia: General Estimated Blood Loss (mL): 25 Description of Procedure: HPI: Patient is a 69-year-old female with multiple lower extremity revascularizations most recently a left femoral-popliteal bypass with reverse great saphenous vein. Her surveillance duplex had revealed a stenosis just beyond the anastomosis that was fairly short in nature. She had previously undergone angiogram with balloon angioplasty with initial improvement in the area however more recent imaging revealed return of any high-grade stenosis with compromise of flow distally in the graft. She is taken now for open revision. Description of procedure: Upon obtaining form consent and verification correct patient procedure site patient taken to the operating room she was placed on general anesthesia. She was then positioned prepped and draped in you sterile fashion time was performed. Ultrasound was used to locate the area in question of the bypass graft and the distal aspect of the prior groin incision was opened vertically with a 10 blade. Bovie electrocautery was dissect down through subcutaneous tissue down to the level of the sartorius flap. Self-retaining retractors were then put into position and further dissection carried down to the proximal component of the bypass graft. Sharp dissection was dissected free distally until normal appearance was observed of the bypass graft and the vessel was dissected free circumferentially. Writing was replaced vessel loop and then carried our dissection proximally up to the proximal anastomosis. Based on both the angiogram and the formal duplex as well as the intraoperative duplex we knew that the anastomosis itself was satisfactory and that the stenosis began just beyond this so once we dissected free up onto the distal common femoral artery the patient was then heparinized a lot of circular for 3 minutes. The distal bypass was then occluded with a vessel loop and proximally the distal common femoral artery was clamped with an atraumatic clamp. Longitudinal arteriotomy was then created in the glass of the graft and extended proximally up into the anastomosis. Distally was carried down until normal lumen was observed. We then performed an endarterectomy of the intimal hyperplasia with a [place] elevator with satisfactory endpoint distally. Next a bovine pericardial patch was brought in the field and secured in position using a 6-0 Prolene in a running fashion. Prior to coming a suture line the vessels were backbled after completing the suture line clamps removed and satisfactory stasis was noted. There was now a brisk palpable pulses distal to the area of her vision which was an improvement from prior to the intervention. Floseal was then applied and the heparin reversed with protamine. The incision was then closed with 2-0 Vicryl, 3-0 Vicryl, 4 Monocryl and Dermabond for the skin. Patient was then awakened anesthesia taken the recovery room with anticipated observation in intensive care unit.
--- NOTE | 2024-06-10 16:55 | PCM.POST.ANE ---
Anesthesia: Postop Eval I Current Vital Signs Temperature: 97 F Pulse Rate: 104 Blood Pressure: 160/100 Respiratory Rate: 18 Pulse Ox: 96 Oxygen Delivery Method: Room Air Assessment Airway patent: Yes Spontaneous unlabored respirations: Yes Mental status: Awake, Calm and Confused nausea: No Vomiting: No Anesthesia Complication: No Fluid Hydration Crystalloid volume administer (ml): 1,200 Total IV fluid infused: 1,200 Progress Note Anesthesia document: Postop Eval 1 completed: Yes
--- NOTE | 2024-06-10 16:56 | POSTOPAN2_ITS ---
Anesthesia Postop Eval I Sum Postop Eval Completion status Anesthesia document: Postop Eval 1 completed: Yes Anesthesia Postop Eval I Summary Anesthesia Postop Eval I Summary: Anesthesia Postop Eval I: Assessment Summary Airway patent Yes 06/10/24 16:56 EXTRUSION DIE REPAIR MANAGER.[email or web address] Spontaneous unlabored Yes 06/10/24 16:56 EXTRUSION DIE REPAIR MANAGER.MDOT respirations Mental status Awake,Calm, 06/10/24 16:56 EXTRUSION DIE REPAIR MANAGER.MDOT Confused nausea No 06/10/24 16:56 EXTRUSION DIE REPAIR MANAGER.MDOT Vomiting No 06/10/24 16:56 EXTRUSION DIE REPAIR MANAGER.MDOT Anesthesia Postop Eval I: Fluid Summary Crystalloid volume administer 1,200 06/10/24 16:56 EXTRUSION DIE REPAIR MANAGER.MDOT (ml) Colloids volume administered ( ml) Blood Product volume administered (ml) Total IV fluid infused 1,200 06/10/24 16:56 EXTRUSION DIE REPAIR MANAGER.MDOT Anesthesia Postop Eval I: Summary Notes Anesthesia Complication Anesthesia Complication Comment: Post-operative progress note Anesthesia: Postop Eval II Evaluation Mental status: Awake and Calm Pain Level: 0 nausea: No Vomiting: No Complications Anesthesia Complication: No
--- NOTE | 2024-06-10 16:56 | PCM.POSTANE2 ---
Anesthesia Postop Eval I Sum Postop Eval Completion status Anesthesia document: Postop Eval 1 completed: Yes Anesthesia Postop Eval I Summary Anesthesia Postop Eval I Summary: Anesthesia Postop Eval I: Assessment Summary Airway patent Yes 06/10/24 16:56 DIRECTOR OF [email or web address] Spontaneous unlabored Yes 06/10/24 16:56 DIRECTOR OF [email or web address].MDOT respirations Mental status Awake,Calm, 06/10/24 16:56 DIRECTOR OF [email or web address].MDOT Confused nausea No 06/10/24 16:56 DIRECTOR OF [email or web address].MDOT Vomiting No 06/10/24 16:56 DIRECTOR OF [email or web address].[email or web address] Anesthesia Postop Eval I: Fluid Summary Crystalloid volume administer 1,200 06/10/24 16:56 DIRECTOR OF DISTRIBUTION.MDOT (ml) Colloids volume administered ( ml) Blood Product volume administered (ml) Total IV fluid infused 1,200 06/10/24 16:56 DIRECTOR OF [email or web address].MDOT Anesthesia Postop Eval I: Summary Notes Anesthesia Complication Anesthesia Complication Comment: Post-operative progress note Anesthesia: Postop Eval II Evaluation Mental status: Awake and Calm Pain Level: 0 nausea: No Vomiting: No Complications Anesthesia Complication: No
[2024-06-10] MEDS: Carvedilol 25 MG Tablet PO (17:48)
[2024-06-10] MEDS: Gabapentin 600 MG Tablet PO ×2 (17:56→19:58)
[2024-06-10] MEDS: HEPARIN/D5w 25,000 UNITS 25,000 UNITS/250 ML IV.SOLN. 5 UNITS CONT INF (17:56)
[2024-06-10] MEDS: 0.45% Normal Saline 1,000 ML 75 ML IV (17:56)
[2024-06-10] MEDS: oxyCODONE 5 MG Tablet PO ×2 (18:04→22:09)
[2024-06-10] MEDS: Budesonide Respules 0.5 MG/2 ML AMPUL.NEB. INHALATION (18:39)
[2024-06-10] MEDS: Ipratropium/Albuterol Sulfate 3 ML AMPUL.NEB INHALATION (18:39)
[2024-06-10] MEDS: Lisinopril 40 MG Tablet PO (19:58)
[2024-06-10] MEDS: Atorvastatin Calcium 80 MG Tablet PO (19:59)
[2024-06-10] MEDS: Pantoprazole Sodium 40 MG Tablet PO (20:00)
[2024-06-10] MEDS: ALPRAZolam 0.5 MG Tablet PO (20:57)
[2024-06-11] VITALS (20 sets, daily range): BP systolic 101–135; BP diastolic 54–106; PULSE 66–87; RESP 12–26; TEMP 36.2–36.8; O2SAT 91–97; BMI 33.4
[2024-06-11] MEDS: BENZOCAINE/MENTHOL 1 LOZENGE MUCOUS MEM (01:13)
[2024-06-11] MEDS: Acetaminophen 500 MG Tablet 1000 MG PO ×2 (01:14→06:59)
[2024-06-11] MEDS: oxyCODONE 5 MG Tablet PO ×2 (02:48→08:25)
[2024-06-11 05:02] LABS: Absolute Lymphocyte Count 0.86 X10^3/uL (0.83-4.51); Absolute Neutrophil Count 7.1 X10^3/uL (2.0-7.7); Basophil# 0.01 X10^3/uL; Basophil% 0.1 % (0-1); Hematocrit 22.4 % (37-47); Hemoglobin 6.7 g/dL (12.0-15.0); Lymphocyte # 0.86 X10^3/ul (0.83-4.51); Lymphocyte % 10.4 % (19-41); Mean Corp Hgb Conc 29.9 g/dL (32-36); Mean Corpuscular Hgb 23.5 pg (27.0-32.0); Mean Corpuscular Volume 78.6 fL (81-99); Mean Platelet Vol. 9.1 fl (6.2-12.0); Monocyte# 0.26 X10^3/uL; Monocyte% 3.1 % (0-10); NRBC Flagged by Analyzer 0 % (0-5); Neutrophil # 7.12 X10^3/uL (2.7-7.7); Platelet Count 342 K/mm3 (150-450); RBC Distribution Width CV 16.5 % (11.6-14.6); RBC Distribution Width SD 47.3 fl (35.1-43.9); Red Blood Count 2.85 M/mm3 (4.2-5.4); White Blood Count 8.3 K/mm3 (4.4-11.0)
[2024-06-11 05:19] LABS: Anion Gap 5 (5-15); BUN 15 mg/dL (7-18); BUN/Creat Ratio 18.7 RATIO (10-20); Calcium,Total 8.3 mg/dL (8.5-10.1); Chloride 97 mmol/L (98-107); EST Glomerular Filtration Rate 75 mL/min (>60); Est Glom Filt Rate - Afr Amer 91 mL/min (>60); Estimated Creatinine Clearance 60.16 ml/min; Glucose 114 mg/dL (74-106); Potassium 5.1 mmol/L (3.5-5.1); Sodium Level 127 mmol/L (136-145)
[2024-06-11] MEDS: 0.45% Normal Saline 1,000 ML 75 ML IV (06:02)
[2024-06-11] MEDS: Ipratropium/Albuterol Sulfate 3 ML AMPUL.NEB INHALATION ×2 (06:38→13:41)
[2024-06-11] MEDS: Budesonide Respules 0.5 MG/2 ML AMPUL.NEB. INHALATION (06:38)
[2024-06-11] MEDS: Carvedilol 25 MG Tablet PO ×2 (08:25→16:21)
[2024-06-11] MEDS: Aspirin E.C. 81 MG Tablet PO (08:25)
--- NOTE | 2024-06-11 09:14 | PN.SURG_ITS ---
Subjective Subjective Linda was seen this morning resting comfortably in the bedside chair. She reports to having some pain at the incisional site, fair control. She denies any rest pain through the rest of her leg. She does report some left knee pain, but this preceded surgery as she had twisted the knee at home about a week ago. She otherwise has no complaints this morning. Objective Data Objective Data Vital Signs: Vital Signs Temp Pulse Resp BP Pulse Ox O2 Del Method O2 Flow Rate 98 F 83 16 121/71 H 92 Nasal Cannula 2 06/11/24 05:00 06/11/24 07:00 06/11/24 07:00 06/11/24 07:00 06/11/24 07:00 06/11/24 07:00 06/11/24 07:00 Oxygen Flow Rate (L/min) 2 Oxygen Delivery Method Nasal Cannula Weight: 166 lb 0.129 oz Body Mass Index (BMI) 33.4 Intake & Output: Intake and Output for Last 24 Hours 06/09/24 06/10/24 06/11/24 23:59 23:59 23:59 Intake Total 1310 / 1690 1287.5 / 1287.5 Output Total 425 / 425 600 / 600 Balance 885 / 1265 687.5 / 687.5 Lab / Micro Data 06/11/24 04:25 06/11/24 04:25 Labs: Laboratory Results - last 24 hr 06/10/24 12:53: WBC 9.1, RBC 3.53 L, Hgb 8.1 L, Hct 28.1 L, MCV 79.6 L, MCH 22.9 L, MCHC 28.8 L, RDW Std Deviation 48.2 H, RDW Coeff of Renea 17.1 H, Plt Count 416, MPV 8.9, Sodium 136, Potassium 4.7, Chloride 106, Carbon Dioxide 22.0, Anion Gap 8, BUN 14, Creatinine 0.81, Estim Creat Clear Calc 59.13, Est GFR (MDRD) Af Amer 91, Est GFR (MDRD) Non-Af 75, BUN/Creatinine Ratio 17.4, Glucose 80, Calcium 9.4, Blood Type A POSITIVE, Antibody Screen NEGATIVE 06/11/24 04:25: WBC 8.3, RBC 2.85 L, Hgb 6.7 L, Hct 22.4 L, MCV 78.6 L, MCH 23.5 L, MCHC 29.9 L, RDW Std Deviation 47.3 H, RDW Coeff of Renea 16.5 H, Plt Count 342, MPV 9.1, Immature Gran % (Auto) 0.400, Neut % (Auto) 86.0 H, Lymph % (Auto) 10.4 L, [place] % (Auto) 3.1, Eos % (Auto) 0.0, Baso % (Auto) 0.1, Absolute Neuts (auto) 7.1, Absolute Lymphs (auto) 0.86, Nucleated RBC % 0, Sodium 127 L, Potassium 5.1, Chloride 97 L, Carbon Dioxide 25.0, Anion Gap 5, BUN 15, Creatinine 0.80, Estim Creat Clear Calc 60.16, Est GFR (MDRD) Af Amer 91, Est GFR (MDRD) Non-Af 75, BUN/Creatinine Ratio 18.7, Glucose 114 H, Calcium 8.3 L Physical Exam Const alert, oriented x3 and no apparent distress General Appearance: cooperative and comfortable HEENT normocephalic, head/scalp atraumatic, hearing grossly normal bilaterally, external ears normal and external nose normal Eyes EOMs intact bilaterally General Eye: normal appearance of both eyes Neck General: normal visual inspection and trachea midline Resp normal respiratory effort, normal air movement, no retractions and no use of accessory muscles Effort and Inspection: able to speak in complete sentences Cardio regular rate and regular rhythm Extremity Extremity Narrative: Left groin incision site with Prevena vacuum dressing intact and maintaining good seal. No significant ecchymosis, erythema surrounding the incision site. Multiphasic left DP and PT pulses. Left foot is warm and pink. Skin no rashes or lesions noted Trauma: no lacerations or abrasions Neuro oriented x3, CN's II-XII intact bilaterally, moves all extremities and no focal motor deficits Speech: speech normal Psych mental status grossly normal and affect normal Appearance: grossly normal Attitude: calm and engaged Activity / Motor Behavior: appropriate eye contact Judgement: judgement good Assessment & Plan Assessment/Plan (1) S/P femoral-popliteal bypass surgery: (2) PAOD (peripheral arterial occlusive disease): PLAN: Plan She is status post revision of left femoral-popliteal bypass with endarterectomy/patch of the proximal graft on 06/10/2024. The incision site is satisfactory in appearance with Prevena vacuum dressing intact and maintaining good seal. Her vascular exam is stable. Will increase her oxycodone dose to 10 mg to optimize pain control. She is chronically anemic with a recent baseline of ~8. Her hemoglobin was 6.7 this morning. Will transfuse 1 unit PRBC. Discontinue [place]. Advance to normal diet. Wean supplemental O2. Will have her ambulate with nursing/PT. Anticipate discharge later this afternoon.
[2024-06-11] MEDS: Pantoprazole Sodium 40 MG Tablet PO (11:05)
[2024-06-11] MEDS: Spironolactone 25 MG Tablet PO (11:05)
[2024-06-11] MEDS: Clopidogrel Bisulfate 75 MG Tablet PO (11:05)
[2024-06-11] MEDS: Gabapentin 600 MG Tablet PO ×2 (11:05→14:14)
[2024-06-11] MEDS: Multivitamins,Ther W-Minerals Tablet 1 TABLET PO (11:06)
[2024-06-11] MEDS: guaiFENesin 1,200 MG Tablet 1200 MG PO (11:06)
[2024-06-11] MEDS: oxyCODONE 5 MG Tablet 10 MG PO (14:13)
[2024-06-11] MEDS: ALPRAZolam 0.5 MG Tablet PO (16:21)
--- NOTE | 2024-06-11 16:24 | CASEMGMT ---
Met with pt to complete RENE form. RENE form explained to pt at this time who voiced understanding and signed form. Original form placed in pt?s chart and copy provided to the pt. This RN CM also discussed DC planning with the pt. Pt states that she feels safe discharging home once medically ready with no additional needs at this time. Pt states that she has plenty of family support and denies needs from this RN CM. PT evaluation is pending at this time. Will follow. Matias Skelton RN, CM
--- NOTE | 2024-06-11 17:25 | DS.PCM_ITS ---
Providers Date of Admission: 06/10/24 Primary Care Physician: Dr. Nate Gray MD Reason For Visit: revision left Fem-Pop Bypass Diagnosis Discharge Diagnosis (1) S/P femoral-popliteal bypass surgery: Status: Acute Code(s): Z95.828 - Presence of other vascular implants and grafts (2) PAOD (peripheral arterial occlusive disease): Status: Chronic Code(s): I77.9 - Disorder of arteries and arterioles, unspecified Plan She is status post revision of left femoral-popliteal bypass with endarterectomy/patch of the proximal graft on 06/10/2024. The incision site is satisfactory in appearance with Prevena vacuum dressing intact and maintaining good seal. Her vascular exam is stable. Will increase her oxycodone dose to 10 mg to optimize pain control. She is chronically anemic with a recent baseline of ~8. Her hemoglobin was 6.7 this morning. Will transfuse 1 unit PRBC. Discontinue [place]. Advance to normal diet. Wean supplemental O2. Will have her ambulate with nursing/PT. Anticipate discharge later this afternoon. Medications at Discharge Home Medications carvedilol 25 mg tablet 25 mg PO BID HEART 05/28/19 spironolactone 25 mg tablet 25 mg PO DAILY BLOOD PRESSURE 05/28/19 alprazolam 0.5 mg tablet 0.5 mg PO TID ANXIETY 02/12/21 psyllium 1 packet PO DAILY PRN CONSTPATION 02/12/21 acetaminophen 500 mg tablet 1,000 mg PO Q6H PRN PAIN 07/19/22 pantoprazole 40 mg tablet,delayed release 40 mg PO BID GERD 30 days #60 tabs 10/12/22 guaifenesin 1,200 mg tablet, extended release 12 hr (Mucinex) 1,200 mg PO BID PRN MUCOUS 07/02/23 lisinopril 40 mg tablet 40 mg PO QHS BLOOD PRESSURE 07/14/23 aspirin 81 mg tablet,delayed release 81 mg PO BREAKFAST HEART [employer] #0 tabs 07/19/23 gabapentin 600 mg tablet 600 mg PO 4X/DAY NERVE PAIN 11/06/23 tramadol 50 mg tablet 50 mg PO 4X/DAY PRN PAIN 11/06/23 albuterol sulfate 90 mcg/actuation aerosol inhaler (Ventolin HFA) 2 puff inhalation Q4H PRN shortness of breath or wheezing #18 grams 11/15/23 fluticasone fur. 200 mcg-umeclid 62.5 mcg-vilant 25 mcg inhalat.powder (Trelegy Ellipta) 1 inh inhalation DAILY ASTHMA #60 ea 11/15/23 clopidogrel 75 mg tablet 75 mg PO DAILY BLOOD THINNER #90 tabs 11/21/23 multivitamin with minerals-folic acid 80 mcg chewable tablet (Centrum Adult 50 Plus) 1 tab PO DAILY SUPPLEM 01/30/24 atorvastatin 80 mg tablet 80 mg PO QHS CHOLESTEROL #90 tabs 02/27/24 docusate sodium 100 mg capsule 100 mg PO BID 7 days #14 caps 06/11/24 oxycodone 5 mg tablet 10 mg (2 x 5 mg) PO Q8H PRN PRN Pain Score 4-10 4 days #24 tabs 06/11/24 Weight / BMI Weight Weight: 166 lb 0.129 oz Body Mass Index (BMI) 33.4 ABG / Lab / Microbiology Data 06/11/24 04:25 06/11/24 04:25 Laboratory: Laboratory Results - last 24 hr 06/10/24 12:53: Blood Type Cancelled, A1 Antigen Typing Cancelled, Rho(D) Type Cancelled, Antibody Screen Cancelled, Crossmatch See Detail 06/11/24 04:25: WBC 8.3, RBC 2.85 L, Hgb 6.7 L, Hct 22.4 L, MCV 78.6 L, MCH 23.5 L, MCHC 29.9 L, RDW Std Deviation 47.3 H, RDW Coeff of Renea 16.5 H, Plt Count 342, MPV 9.1, Immature Gran % (Auto) 0.400, Neut % (Auto) 86.0 H, Lymph % (Auto) 10.4 L, [place] % (Auto) 3.1, Eos % (Auto) 0.0, Baso % (Auto) 0.1, Absolute Neuts (auto) 7.1, Absolute Lymphs (auto) 0.86, Nucleated RBC % 0, Sodium 127 L, Potassium 5.1, Chloride 97 L, Carbon Dioxide 25.0, Anion Gap 5, BUN 15, Creatinine 0.80, Estim Creat Clear Calc 60.16, Est GFR (MDRD) Af Amer 91, Est GFR (MDRD) Non-Af 75, BUN/Creatinine Ratio 18.7, Glucose 114 H, Calcium 8.3 L D/C Instructions Discharge Diet: No restrictions May shower in (days): 1 Weight Bearing Status: Weight bearing as tolerated Lifting Restricted to (Lbs): 20 Lifting Restrictions: Do not lift greater than 20 pounds for 3 weeks Call your doctor if your incision/area has: Sudden Increased Bleeding, Increased Pain/ Swelling and Foul Smelling Discharge Call your doctor if you observe: Fever of 101 or Higher and Uncontrolled pain Additional Instructions: The left groin incision site is covered with a Prevena vacuum dressing. This is to remain in place for 1 week following surgery. You may remove this on Sunday06/18/2024. If the unit is alarming and you are unable to get it to stop, then you may remove sooner as needed. To remove the vacuum dressing: (1) hold down the power button until the unit turns off (2) follow the tubing to the white connectors and twist these apart (3) at this point the purple foam should puff up (4) once the purple foam has puffed, you may peel off the adhesive dressing (5) you may then throw the entire unit in your garbage at home The incision site is closed with skin glue which will continue to protect it even at the vacuum dressing is removed. You may leave it open to air. If you notice any drainage, then you may cover with a dry gauze dressing. You may shower starting tomorrow. Do not submerge the incision site such as to take a bath, swim, etc for 3 weeks. Do not lift greater than 20 pounds for 3 weeks. Otherwise, please proceed with activity as tolerated. You have been prescribed oxycodon 10mg to be taken by mouth every 8 hours as needed for pain. You may take this in addition to tylenol. Do not take this in combination with any other prescription pain medications. Do not drive while you are taking this medication. Please continue to take Aspirin 81mg daily. You have chronic anemia which did worsen slightly following surgery. For this reason, you did receive 1 unit of blood after surgery. I would like to recheck your blood count to ensure it is staying stable or improving. I have ordered this lab test, please come in to have this lab drawn early next week. You are scheduled for follow-up in the office on 07/10/2024 at 10 AM. If you need to change this appointment or have any other questions/concerns please contact the office at [phone]. Please Follow Up With: Ella Rosales PA When: 07/10/2024 at 10AM Meaningful Use Info Meaningful Use Meaningful Use Diagnoses (Choose all that apply): None applicable Ischemic Stroke Statin Dosing Therapy Reference: STATIN DOSE THERAPY REFERENCE: * Patients > 75 years receive moderate or high dose statin therapy. * Patients 75 years or YOUNGER should receive HIGH intensity statin dose unless contraindicated. You will be required to document reason for non-treatment if statin daily dose does not meet guidelines. HIGH DOSE STATIN THERAPY DAILY Atorvastatin > than or = to 40 mg Rosuvastatin > than or = to 20 mg Amlodipine + Atorvastatin > than or = to 2.5/40 mg Ezetimibe + Simvastatin 10/80 mg Simvastatin 80mg Discharge Plan Admission Admit Date/Time: 06/10/24 16:31 Primary Reason for Your Visit: Revision L fem-pop bypass Attending Provider: Alec Lopez Primary Care Provider: Nate Gray Discharge Orders/Prescriptions Prescriptions: New docusate sodium 100 mg Capsule 100 mg PO BID 7 Days Qty: 14 0RF oxycodone 5 mg Tablet 10 mg PO Q8H PRN PRN (Reason: Pain Score 4-10) 4 Days Qty: 24 0RF Continued Trelegy Ellipta 200-62.5-25 mcg blister with device 1 inh inhalation DAILY Qty: 60 11RF albuterol sulfate [Ventolin HFA] 90 mcg/actuation HFA aerosol inhaler 2 puff inhalation Q4H PRN (Reason: shortness of breath or wheezing) Qty: 18 6RF carvedilol 25 MG tablet 25 mg PO BID spironolactone 25 MG tablet 25 mg PO DAILY alprazolam 0.5 mg tablet 0.5 mg PO TID psyllium Packet 1 packet PO DAILY PRN (Reason: CONSTPATION ) acetaminophen 500 mg Tablet 1,000 mg PO Q6H PRN (Reason: PAIN ) pantoprazole 40 mg Tablet,Delayed Release (Dr/Ec) 40 mg PO BID 30 Days Qty: 60 0RF lisinopril 40 mg tablet 40 mg PO QHS aspirin 81 mg Tablet,Delayed Release (Dr/Ec) 81 mg PO BREAKFAST Qty: 0 0RF guaifenesin [Mucinex] 1,200 mg tablet extended release 12hr 1,200 mg PO BID PRN (Reason: MUCOUS) gabapentin 600 mg tablet 600 mg PO 4X/DAY tramadol 50 mg tablet 50 mg PO 4X/DAY PRN (Reason: PAIN ) Centrum Adult 50 Plus 80 mcg tablet,chewable 1 tab PO DAILY clopidogrel 75 mg tablet 75 mg PO DAILY Qty: 90 3RF atorvastatin 80 mg tablet 80 mg PO QHS Qty: 90 3RF Referrals / Follow Up: Nate Gray MD [Primary Care Provider] - Disposition Disposition (needs filled in before D/C Order can be placed): Home, Self Care
== END 2024-06-11 18:30 | disposition home or self-care (01) ==
LOC: SDC 16:55 → ICU 16:55
PROVIDERS: Admitting Provider Surgery Trauma Surgery; PCP Internal Medicine; Referring Provider Surgery Trauma Surgery; Visit Provider Surgery Trauma Surgery
PROC: (CPT 35879; principal; 2024-06-10 13:00)
DX: T82.858A Stenosis of other vascular prosthetic devices, implants and grafts, initial encounter (principal); J44.9 Chronic obstructive pulmonary disease, unspecified; I73.9 Peripheral vascular disease, unspecified; Z95.828 Presence of other vascular implants and grafts; M25.562 Pain in left knee; Z79.02 Long term (current) use of antithrombotics/antiplatelets; I10 Essential (primary) hypertension; E78.00 Pure hypercholesterolemia, unspecified; G89.29 Other chronic pain; Z79.51 Long term (current) use of inhaled steroids; F17.210 Nicotine dependence, cigarettes, uncomplicated; Y71.2 Prosthetic and other implants, materials and accessory cardiovascular devices associated with adverse incidents; Z79.899 Other long term (current) drug therapy; K21.9 Gastro-esophageal reflux disease without esophagitis; I77.9 Disorder of arteries and arterioles, unspecified
CPT/HCPCS: 35879; 01270; 36415; 80048; 85025; 85027; 86850; 86900; 86901; 86920; 93005; 94640; 94668; 94762; 96365; 96366; 97802; 99221; 99252; A4648; J7120; P9040; G0378; G0463; J2405

== ENCOUNTER → 2024-06-17 | Outpatient (CLI) | payer MEDICARE, SELFPAY ==
[2024-06-17 12:58] LABS: Hemoglobin 8.7 g/dL (12.0-15.0)
== END | disposition home or self-care (01) ==
PROVIDERS: PCP Internal Medicine; Visit Provider Physician Assistant
DX: M79.605 Pain in left leg (principal); Z95.828 Presence of other vascular implants and grafts
CPT/HCPCS: 36415; 85018

== ENCOUNTER → 2024-06-27 | Outpatient (CLI) | payer MEDICARE, SELFPAY ==
--- NOTE | 2024-06-27 12:50 | VDLE_ITS ---
Reason For Study: LLE Pain RIGHT LEFT CFV is compressible, spontaneous, phasic, HX Lt GSV [place] for BPG. competent and demonstrates normal CFV is compressible, spontaneous, phasic, augmentation. competent, and demonstrates normal Procedure augmentation. This is a venous duplex using B-mode, color FV is compressible, spontaneous, phasic, flow and spectral Doppler. competent and demonstrates normal Exam performed in department. augmentation. The exam was diagnostic. POP V is compressible, spontaneous, phasic, A preliminary report was called and/or faxed competent and demonstrates normal to Ella Rosales [facility] PA. augmentation. T/P Trunk is compressible. PTV is compressible. LT PerV is compressible. VL/Venous Duplex US, Unilateral Interpretation Summary Deep veins of the left lower extremity are patent and compressible segmentally. There is no evidence of left lower extremity deep vein thrombosis. Ordering Physician: Ella Rosales Referring Physician: Nate Gray M.D. Performed By: Sam Mi RVT
== END | disposition home or self-care (01) ==
LOC: CVS 12:50
PROVIDERS: PCP Internal Medicine; Referring Provider Physician Assistant; Visit Provider Physician Assistant
DX: R60.0 Localized edema (principal)
CPT/HCPCS: 93971

== ENCOUNTER → 2024-08-08 | Outpatient (CLI) | payer MEDICARE, SELFPAY ==
--- NOTE | 2024-08-08 13:01 | ART_ITS ---
Reason For Study: s/p Revision Lt Fem-Pop Bypass Procedure A bilateral lower extremity continuous wave Doppler with analog waveform analysis and ankle brachial indexes. Left Segmental Pressures Left brachial= 142mmHg. Left posterior tibial artery = 148mmHg. Left dorsalis pedis artery = 111mmHg. Left digit = 95 mmHg. Right Segmental Pressures Right brachial= 135mmHg. Right posterior tibial artery = 92mmHg. Right dorsalis pedis artery = 89mmHg. Right digit = 64 mmHg. Indices The right ankle brachial index by the posterior tibial artery is 0.65. The right ankle brachial index by the dorsalis pedis is 0.63. The right digital-brachial index is 0.45. The left ankle brachial index by the posterior tibial artery is 1.04. The left ankle brachial index by the dorsalis pedis is 0.78. The left digital-brachial index is 0.67. VL/Ankle Brachial Index Interpretation Summary Right SHAKIR 0.65, moderate arterial insufficiency. Doppler/PVR waveforms of the r ight ankle moderately diminished at rest. Left SHAKIR 1.04, normal. Doppler/PVR waveforms of the left leg ankle at rest. TBI diminished, pedal/digit disease. Ordering Physician: Ella Rosales Referring Physician: Nate Gray Performed By: Christin Zaragoza RDCS/RVT
--- NOTE | 2024-08-08 13:01 | ADUL_ITS ---
Reason For Study: s/p Revision Lt Fem-Pop Bypass Left Velocities Ext Iliac Artery, dist = 104 cm./sec. Common Femoral Artery, mid = 203 cm./sec. Lt Fem-Pop BPG noted. Lt BPG Anastomosis: 160 cm/s Lt prox BP cm/s Lt mid BP cm/s Lt dist BP cm/s Lt Dist Anastomosis: 164 cm/s. Profunda Femoral Artery = 64 cm./sec. Popliteal Artery, mid = 74 cm./sec. Retrograde flow noted Pop A. Post. Tibial Artery, prox = 70 cm./sec. Post Tibial Artery, mid = 81 cm./sec. Post Tibial Artery, dist. = 65 cm./sec. Peroneal Artery, prox = 50 cm./sec. Peroneal Artery, mid = 56 cm./sec. Peroneal Artery,dist. = 48 cm./sec. Ant.Tibial Artery, prox = 58 cm./sec. Ant Tibial Artery, mid = 60 cm./sec. Ant. Tibial Artery, distal = 59 cm./sec. Procedure Exam performed in department. /US Art Duplex Unilat Lower Ext Interpretation Summary Patent left femoral-popliteal bypass with normal velocities and no evidence of stenosis Ordering Physician: Ella Rosales Referring Physician: Nate Gray Performed By: Christin Zaragoza, RDCS, RVT
== END | disposition home or self-care (01) ==
PROVIDERS: PCP Internal Medicine; Referring Provider Physician Assistant; Visit Provider Physician Assistant
DX: Z48.812 Encounter for surgical aftercare following surgery on the circulatory system (principal)
CPT/HCPCS: 93922; 93926

== ENCOUNTER → 2024-08-15 | Outpatient (CLI) | payer MEDICARE, SELFPAY | END | disposition home or self-care (01) | PROVIDERS: PCP Internal Medicine; Referring Provider Nurse Practitioner Acute Care; Visit Provider Nurse Practitioner Acute Care | DX: R91.8 Other nonspecific abnormal finding of lung field (principal) | CPT/HCPCS: 71250 ==

== ENCOUNTER 2024-08-24 09:30 | Emergency (ER) | payer MEDICARE, MEDICAID, SELFPAY ==
[2024-08-24 09:31] VITALS: BP 212/109; PULSE 99; RESP 16; TEMP 36.8; O2SAT 98; BMI 32.9
[2024-08-24 09:43] VITALS: PULSE 111; RESP 26; O2SAT 94
--- NOTE | 2024-08-24 09:44 | EKG12_ITS ---
Test Reason : SOB Blood Pressure : */* mmHG Vent. Rate : 79 BPM Atrial Rate : 79 BPM P-R Int : 124 ms QRS Dur : 86 ms QT Int : 362 ms P-R-T Axes : 39 63 48 degrees QTcB Int : 415 ms Sinus rhythm with sinus arrhythmia with occasional Premature ventricular complexes Otherwise normal ECG Confirmed by AFIA KULKARNI, SHERIF ([id number]), clinical editor MICHELLE JOSUE ([id number]) on 08/25/2024 9:43:19 AM Referred By: Confirmed By: SHERIF OREILLY MD
--- NOTE | 2024-08-24 09:46 | ED.VIS.DYS ---
HPI History of Present Illness Chief Complaint: Shortness of Breath Narrative Narrative: 69-year-old female past medical history of COPD and anxiety presents with multiple somatic complaints but mainly increasing shortness of breath, nausea and vomiting. She relates history that she states she had upper respiratory infection type symptoms and difficulty breathing a few weeks ago. On Sunday of last week, approximately 7 days ago, she had her pulmonology provider call her in doxycycline and steroids to help with her breathing. She feels that her breathing is getting worse. She denies any fevers or chills, but yesterday developed nausea and vomiting. She vomited multiple times without any hematemesis. She states she is also having loose stool without any blood in it. She last used her aerosol treatment yesterday. She also did not take her anxiety medication this morning. She states that yesterday she thought that her heart rate was over 240 bpm on her pulse oximeter, but her pulse ox remained 95% on room air and above. PFSH PFSH Medical History Decrease in appetite Wears hearing aid History of steroid therapy Arthritis PVD (peripheral vascular disease) Syncope Dietary restriction Gastric reflux Leg cramps Anxiety disorder Wears dentures Low iron High cholesterol History of ulceration On home oxygen therapy Post-menopausal Diverticulitis Back pain due to injury Chronic headaches History of stress test Wears glasses Chronic pain Shortness of breath Smoker History of cardiovascular stress test Leg pain S/P arteriogram of extremity Essential hypertension COPD (chronic obstructive pulmonary disease) Incisional hernia without mention of obstruction or gangrene Impaired fasting glucose History of pelvic hematoma Duodenal ulcer Clostridium difficile colitis Closed fracture of fifth metatarsal bone of left foot Injury, spleen, with capsular tears Pseudocyst of pancreas Peptic ulcer disease SBO (small bowel obstruction) H/O spleen injury Asthma Hyperlipemia Alcohol abuse Home Medications ?Medication ?Instructions ?Recorded ?Last Taken ?Type carvedilol 25 mg tablet 25 mg PO BID HEART 05/28/19 06/10/24 History spironolactone 25 mg tablet 25 mg PO DAILY BLOOD PRESSURE 05/28/19 06/09/24 History alprazolam 0.5 mg tablet 0.5 mg PO TID ANXIETY 02/12/21 06/10/24 History psyllium 1 packet PO DAILY PRN CONSTPATION 02/12/21 Unknown History acetaminophen 500 mg tablet 1,000 mg PO Q6H PRN PAIN 07/19/22 02/03/24 History pantoprazole 40 mg tablet,delayed 40 mg PO BID GERD 30 days #60 tabs 10/12/22 06/10/24 Rx release guaifenesin 1,200 mg tablet, 1,200 mg PO BID PRN MUCOUS 07/02/23 06/10/24 History extended release 12 hr (Mucinex) lisinopril 40 mg tablet 40 mg PO QHS BLOOD PRESSURE 07/14/23 06/09/24 History aspirin 81 mg tablet,delayed 81 mg PO BREAKFAST HEART HEALTH 07/19/23 06/10/24 Rx release #0 tabs gabapentin 600 mg tablet 600 mg PO 4X/DAY NERVE PAIN 11/06/23 06/10/24 History tramadol 50 mg tablet 50 mg PO 4X/DAY PRN PAIN 11/06/23 06/10/24 History albuterol sulfate 90 mcg/actuation 2 puff inhalation Q4H PRN 11/15/23 02/03/24 Rx aerosol inhaler (Ventolin HFA) shortness of breath or wheezing #18 grams fluticasone fur. 200 mcg-umeclid 1 inh inhalation DAILY ASTHMA #60 11/15/23 06/10/24 Rx 62.5 mcg-vilant 25 mcg ea inhalat.powder (Trelegy Ellipta) clopidogrel 75 mg tablet 75 mg PO DAILY BLOOD THINNER #90 11/21/23 06/10/24 Rx tabs multivitamin with minerals-folic 1 tab PO DAILY SUPPLEM 01/30/24 06/10/24 History acid 80 mcg chewable tablet (Centrum Adult 50 Plus) atorvastatin 80 mg tablet 80 mg PO QHS CHOLESTEROL #90 tabs 02/27/24 06/09/24 Rx docusate sodium 100 mg capsule 100 mg PO BID 7 days #14 caps 06/11/24 Unknown Rx oxycodone 5 mg tablet 10 mg (2 x 5 mg) PO Q8H PRN PRN 06/11/24 Unknown Rx Pain Score 4-10 4 days #24 tabs miscellaneous medical supply #1 ea 06/19/24 Unknown Rx doxycycline hyclate 100 mg tablet 100 mg PO BID #20 tabs 08/18/24 Unknown Rx prednisone 10 mg tablet 10 mg PO QDAY #30 tabs 08/18/24 Unknown Rx famotidine 20 mg tablet (Pepcid) 20 mg PO DAILY #14 tabs 08/24/24 Unknown Rx ondansetron 4 mg disintegrating 4 mg PO Q8H PRN PRN Nausea #10 tabs 08/24/24 Unknown Rx tablet Allergy/AdvReac Type Severity Reaction Status Date / Time amlodipine AdvReac Intermediate Nausea/Vom/ Verified 08/24/24 09:31 Diarrhea clonidine AdvReac Mild Nausea/Vom/ Verified 08/24/24 09:31 Diarrhea adhesive AdvReac Rash Verified 08/24/24 09:31 codeine AdvReac Nausea Verified 08/24/24 09:31 Family History Mother Heart disease Hypertension Diabetes Sister Hypertension Brother Hypertension Sister Hypertension Cervical cancer Brother Pancreatic cancer Surgical History History of esophagogastroduodenoscopy (EGD) Hx of colonoscopy Hx of cervical spine surgery H/O: H/O colostomy History of hernia repair Social History household members: spouse housing: house Smoking Status: Current some day smoker tobacco type: cigarettes Electronic Cigarette Use: not used second hand exposure: Yes alcohol intake: current alcohol intake frequency: a few times a week substance use type: does not use caffeine: Yes what type of physical activity do you participate in: bicycling frequency: 1-2 times per week ROS ROS ED ROS Narrative Constitutional: No fever, no chills. HEENT: No sore throat. No neck pain. No loss of vision. No rhinorrhea. Cardiovascular: No chest pain. No palpitations. No pedal edema. Respiratory: No cough, increasing shortness of breath. Abdominal: Epigastric cramping/abdominal pain. Positive nausea and vomiting, positive loose stool. Genitourinary: No dysuria. No hematuria. Musculoskeletal: No myalgias. No arthralgias. Neurologic: No headaches. No dizziness. No lightheadedness. Skin: No rash. No change in color. Psychiatric: No depression. Positive anxiety. EXAM Physical Exam Narrative Exam Narrative: Afebrile. Vital signs noted. HEENT examination is unremarkable, PERRL EOMI. Cardiovascular examination reveals a mild tachycardia on examination but was normal in triage. Respiratory examination reveals decreased air movement bilateral bases with occasional expiratory wheeze. Speaking in full sentences. No noted accessory muscle use. Abdominal examination reveals a soft abdomen with minimal tenderness to palpation in the epigastrium, no rebound or guarding. Positive bowel sounds. Neurological examination is nonfocal and nonlateralizing. Psychiatric examination reveals mild anxiety. Const Vital Signs: 08/24/24 09:31 08/24/24 09:43 08/24/24 09:43 Temperature 98.2 F Temperature Source Oral Pulse Rate 99 111 H Respiratory Rate 16 26 H Respiratory Effort Short of Breath Respiratory Pattern Tachypnea Blood Pressure 212/109 H Blood Pressure Mean 143 Pulse Ox 98 94 Oxygen Delivery Method Room Air Room Air Room Air 08/24/24 09:53 08/24/24 10:12 08/24/24 11:03 Temperature 98.2 F Temperature Source Pulse Rate 109 H 82 Respiratory Rate 22 H 19 H Respiratory Effort Respiratory Pattern Tachypnea Blood Pressure 169/89 H Blood Pressure Mean 115 Pulse Ox 98 Oxygen Delivery Method Room Air MDM MDM MDM Narrative Medical decision making narrative: Differential diagnosis includes but not limited to COPD exacerbation versus pneumonia versus pneumothorax versus pulmonary embolism. Although she is tachycardic, history and physical does not support pulmonary embolism. Her pulse ox is normal here in the emergency department. I feel that her tachycardia is most likely related to mild anxiety as well. I have very low suspicion for CHF exacerbation as she does not have this diagnosis in her history/problem list. Patient will be given a DuoNeb aerosolized treatment and methylprednisolone 125 mg. Regarding her nausea and vomiting and epigastric pain, feel she probably has more of a gastritis from her use of doxycycline and prednisone. Lipase will be obtained as well as CMP to help rule out pancreatitis. EKG was obtained and interpreted by myself independently as normal sinus rhythm at 79 bpm with sinus arrhythmia and PVCs, but no acute ST changes. No STEMI. I reviewed her laboratory work and she has slightly elevated white count of 13.7 which I think is nonspecific, hemoglobin 9.8, but improved over previous when compared to prior laboratories. Additionally, platelet count is elevated at 788, but she has had thrombophilia in the past. Sodium slightly low 134 which I think is nonspecific, potassium normal at 3.9, anion gap normal at 8. Glucose appropriately elevated at 103. BNP is slightly elevated at 172, but I do not feel she requires Lasix. Chest x-ray 1 view interpreted by myself independently shows chronic changes and COPD but no pneumonia or infiltrate. No pneumothorax. I reviewed the radiology report which confirms my independent interpretation. Lipase is normal at 42 so I doubt pancreatitis. I do feel she probably has more of a gastritis vibrio mycin. High-sensitivity troponin is unremarkable at 6. I do not feel she requires serial enzymes. I feel that anxiety is playing a large component in her elevated heart rate. After Ativan 0.5 mg, she now has a heart rate in the 90s. Repeat examination shows her moving a good amount of air. Pulse ox remains normal. At this point in time, I do not feel she meets any admission or observation criteria. She states that she is almost done with her doxycycline and without evidence of pneumonia, I do not feel that she needs to continue this. However, she could continue her prednisone as previously directed and follow-up with her dermatology nurse practitioner tomorrow. She will continue to use her albuterol inhaler every 4-6 hours. She will return with increasing shortness of breath, new or worsening symptoms. I wrote her prescriptions for Zofran and Pepcid. Disposition is discharged home in stable condition. History & Record Review Discussion w/independent historian: Patient Additional record(s) reviewed:: Prior labs Lab Data Attestation: I reviewed the patient's lab results. Labs: Laboratory Results - last 24 hr 08/24/24 09:52 WBC 13.7 H RBC 4.15 L Hgb 9.8 L Hct 32.3 L MCV 77.8 L MCH 23.6 L MCHC 30.3 L RDW Std Deviation 58.3 H RDW Coeff of Renea 20.7 H Plt Count 788 H* MPV 8.8 Immature Gran % (Auto) 1.400 H Neut % (Auto) 71.3 H Lymph % (Auto) 18.0 L [place] % (Auto) 9.1 Eos % (Auto) 0.1 Baso % (Auto) 0.1 Absolute Neuts (auto) 9.8 H Absolute Lymphs (auto) 2.47 Nucleated RBC % 0.4 Diff Path Review May foll Atypical Lymphocytes 1+ Platelet Estimate MKD INC Polychromasia 2+ Hypochromasia 1+ Anisocytosis 3+ Microcytosis 1+ Target Cells RARE Tear Drop Cells 1+ Ovalocytes 1+ Sodium 134 L Potassium 3.9 Chloride 99 Carbon Dioxide 27.0 Anion Gap 8 BUN 9 Creatinine 0.76 Estim Creat Clear Calc 59.59 Est GFR (MDRD) Af Amer 96 Est GFR (MDRD) Non-Af 80 BUN/Creatinine Ratio 11.8 Glucose 103 Calcium 9.1 Total Bilirubin 0.30 AST 21 ALT 19 Alkaline Phosphatase 92 Troponin I High Sens 6 B-Natriuretic Peptide 172.1 H Total Protein 7.1 Albumin 3.3 Globulin 3.8 Albumin/Globulin Ratio 0.9 Lipase 42 Radiography Diagnostic Testing: Clinical Impression(s) from Imaging Studies Chest X-Ray 08/24/24 09:55 IMPRESSION: No acute cardiopulmonary process identified. Electronically Signed: Jany Stauffer MD at 10:48 EST Reading Location ID and State: [facility] / [place] Tel , Service support , Discharge Plan Triage Chief Complaint: Shortness of Breath ED Provider: Mack Lopez Dx/Rx/DC Orders Clinical Impression: Anxiety, COPD (chronic obstructive pulmonary disease), Gastritis Instructions: ED COPD Flare, ED Gastritis (Adult) Prescriptions: New ondansetron 4 mg tablet,disintegrating 4 mg PO Q8H PRN PRN (Reason: Nausea) Qty: 10 0RF famotidine [Pepcid] 20 mg tablet 20 mg PO DAILY Qty: 14 0RF No Action Trelegy Ellipta 200-62.5-25 mcg blister with device 1 inh inhalation DAILY Qty: 60 11RF albuterol sulfate [Ventolin HFA] 90 mcg/actuation HFA aerosol inhaler 2 puff inhalation Q4H PRN (Reason: shortness of breath or wheezing) Qty: 18 6RF (DME) miscellaneous medical supply Misc See Rx Instructions .Route Qty: 1 0RF Rx Instructions: Shower/Bath Chair/stool carvedilol 25 MG tablet 25 mg PO BID spironolactone 25 MG tablet 25 mg PO DAILY alprazolam 0.5 mg tablet 0.5 mg PO TID psyllium Packet 1 packet PO DAILY PRN (Reason: CONSTPATION ) acetaminophen 500 mg Tablet 1,000 mg PO Q6H PRN (Reason: PAIN ) pantoprazole 40 mg Tablet,Delayed Release (Dr/Ec) 40 mg PO BID 30 Days Qty: 60 0RF lisinopril 40 mg tablet 40 mg PO QHS aspirin 81 mg Tablet,Delayed Release (Dr/Ec) 81 mg PO BREAKFAST Qty: 0 0RF guaifenesin [Mucinex] 1,200 mg tablet extended release 12hr 1,200 mg PO BID PRN (Reason: MUCOUS) gabapentin 600 mg tablet 600 mg PO 4X/DAY tramadol 50 mg tablet 50 mg PO 4X/DAY PRN (Reason: PAIN ) Centrum Adult 50 Plus 80 mcg tablet,chewable 1 tab PO DAILY docusate sodium 100 mg Capsule 100 mg PO BID 7 Days Qty: 14 0RF oxycodone 5 mg Tablet 10 mg PO Q8H PRN PRN (Reason: Pain Score 4-10) 4 Days Qty: 24 0RF clopidogrel 75 mg tablet 75 mg PO DAILY Qty: 90 3RF atorvastatin 80 mg tablet 80 mg PO QHS Qty: 90 3RF doxycycline hyclate 100 mg tablet 100 mg PO BID Qty: 20 0RF prednisone 10 mg tablet 10 mg PO QDAY Qty: 30 0RF Rx Instructions: take 4 tabs for three days, then 3 tabs for three days, then 2 tabs for three days, then 1 tab for 3 days Primary Care Provider: Nate Gray Referrals: Nate Gray MD [Primary Care Provider] - Activity Restrictions/Additional Instructions: Follow-up with your dermatology nurse practitioner in the next few days. It should be okay to stop your doxycycline. Use your albuterol inhaler every 4-6 hours as needed. Finish the steroids as previously directed by your dermatology nurse practitioner. Return to the emergency department with increasing shortness of breath, new or worsening symptoms. Print Language: Georgian Disposition Disposition: Home, Self Care
[2024-08-24] MEDS: Ipratropium/Albuterol Sulfate 3 ML AMPUL.NEB INHALATION (09:52)
[2024-08-24 09:53] VITALS: PULSE 109; RESP 22
--- NOTE | 2024-08-24 09:55 | RAD_ITS ---
HISTORY: Shortness of breath, COPD. TECHNIQUE: XR Chest 1 View. COMPARISON: 11/06/2023. FINDINGS: CARDIOMEDIASTINAL BORDERS: Cardiac silhouette within normal limits in size. Mediastinal contour unremarkable with calcification of the aortic knob. LUNGS: Radiographically clear. PLEURA: No pleural effusion or pneumothorax seen. OTHER: Old left seventh, eighth, and ninth rib fractures. Left upper quadrant coiling again seen. RAD/Chest 1 View (Portable) IMPRESSION: No acute cardiopulmonary process identified. Electronically Signed: Jany Stauffer MD at 10:48 EST ,
[2024-08-24 09:59] LABS: Absolute Lymphocyte Count 2.47 X10^3/uL (0.83-4.51); Absolute Neutrophil Count 9.8 X10^3/uL (2.0-7.7); Basophil# 0.02 X10^3/uL; Basophil% 0.1 % (0-1); Eosinophil# 0.02 X10^3/uL; Eosinophils% 0.1 % (0-5); Hematocrit 32.3 % (37-47); Hemoglobin 9.8 g/dL (12.0-15.0); Lymphocyte # 2.47 X10^3/ul (0.83-4.51); Mean Corp Hgb Conc 30.3 g/dL (32-36); Mean Corpuscular Hgb 23.6 pg (27.0-32.0); Mean Corpuscular Volume 77.8 fL (81-99); Mean Platelet Vol. 8.8 fl (6.2-12.0); Monocyte# 1.24 X10^3/uL; Monocyte% 9.1 % (0-10); NRBC Flagged by Analyzer 0.4 % (0-5); Neutrophil # 9.76 X10^3/uL (2.7-7.7); Neutrophil % 71.3 % (47-70); POSITIVE COUNT YES; POSITIVE MORPHOLOGY YES; RBC Distribution Width CV 20.7 % (11.6-14.6); RBC Distribution Width SD 58.3 fl (35.1-43.9); Red Blood Count 4.15 M/mm3 (4.2-5.4); White Blood Count 13.7 K/mm3 (4.4-11.0)
[2024-08-24 10:08] LABS: Differential Indicated SCAN CRITERIA MET; Platelet Count 788 K/mm3 (150-450)
[2024-08-24] MEDS: MethylPREDNISolone 125 MG/2 ML Vial IV (10:10)
[2024-08-24] MEDS: LORazepam 2 MG/ML Syringe 0.5 MG IV (10:11)
[2024-08-24 10:18] LABS: ALB/GLOB Ratio 0.9 RATIO (0.9-2.4); AST(SGOT) 21 U/L (15-37); Alanine Aminotransfer ALT/SGPT 19 U/L (13-56); Albumin, Serum 3.3 g/dL (3.2-5.0); Alkaline Phosphatase 92 U/L (45-117); Anion Gap 8 (5-15); BUN 9 mg/dL (7-18); BUN/Creat Ratio 11.8 RATIO (10-20); Calcium,Total 9.1 mg/dL (8.5-10.1); Chloride 99 mmol/L (98-107); Creatinine, Serum 0.76 mg/dL (0.55-1.02); EST Glomerular Filtration Rate 80 mL/min (>60); Est Glom Filt Rate - Afr Amer 96 mL/min (>60); Estimated Creatinine Clearance 59.59 ml/min; Globulin 3.8 g/dL (2.2-4.2); Glucose 103 mg/dL (74-106); Lipase 42 U/L (13-75); Potassium 3.9 mmol/L (3.5-5.1); Protein, Total 7.1 g/dL (6.4-8.2); Sodium Level 134 mmol/L (136-145); Troponin-I HS 6 pg/mL (3.0-54.0)
[2024-08-24 10:20] LABS: Anisocytosis 3+; Atypical Lymphocyte 1+ %; Hypochromasia 1+; Microcytosis 1+; Ovalocyte 1+; Platelet Estimate MKD INC (ADEQ); Polychromasia 2+
[2024-08-24 10:21] LABS: Target Cells RARE; Tear Drop Cell 1+
[2024-08-24 10:26] LABS: BNP,B-Type NATRIURETIC PEPTIDE 172.1 pg/mL (0-100)
[2024-08-24] MEDS: Ondansetron 4 MG/2 ML Vial IV (10:51)
[2024-08-24] MEDS: Morphine 4 MG/ML Syringe IV (10:51)
[2024-08-24 11:03] VITALS: BP 169/89; PULSE 82; RESP 19; TEMP 36.8; O2SAT 98
[2024-08-25 14:10] LABS: Pathologist Review Reviewed
== END 2024-08-24 11:18 | disposition home or self-care (01) ==
PROVIDERS: Emergency Provider Emergency Medicine; PCP Internal Medicine; Visit Provider Emergency Medicine
DX: F41.9 Anxiety disorder, unspecified (principal); J44.9 Chronic obstructive pulmonary disease, unspecified; K29.70 Gastritis, unspecified, without bleeding
CPT/HCPCS: 71045; 80053; 83690; 83880; 84484; 85025; 93005; 94640; 96374; 96375; 96376; 99283; A4216; J2405

== ENCOUNTER 2024-09-15 11:07 | Inpatient (IN) | payer MEDICARE, MEDICAID, SELFPAY ==
[2024-09-15] VITALS (21 sets, daily range): BP systolic 97–148; BP diastolic 54–73; PULSE 89–104; RESP 16–24; TEMP 36.1–36.9; O2SAT 94–100; BMI 37.6; BMI 33.9
--- NOTE | 2024-09-15 11:28 | CT_ITS ---
STUDY: CT ABDOMEN AND PELVIS WITH CONTRAST REASON FOR EXAM: Female, 69 years old. LLQ pain. Bloody stools. RADIATION DOSAGE (If Supplied By Facility): CTDIvol = ( 17.1 ) mGy, DLP = ( 959.4 ) mGycm TECHNIQUE: Transaxial images were obtained from the dome of the diaphragm to the symphysis pubis without oral contrast. IV 100mL [id number]-[id number] was administered. Sagittal and coronal images were reconstructed. Individualized dose optimization techniques were used for this CT. COMPARISON: Comparison is made with prior study dated February 15, 2024. FINDINGS: Stable mild increased linear markings at the lung bases suggestive of scarring. No coronary artery calcification is seen. There is decreased attenuation of the liver consistent with steatosis. Small layering gallstones are seen along the dependent portion of the gallbladder lumen. Normal spleen. Normal pancreas. Metallic coils are seen within the splenic artery. Normal bilateral adrenal glands. Stable bilateral renal cysts more prominent on the left side. Normal visualized stomach. Stable resection of the distal ileum with anastomosis. Surgical anastomosis is seen at the colorectal junction. There is non-visualization of the appendix. There is diffuse atherosclerotic calcification of the abdominal aorta and its major visceral branches, without a demonstrated aneurysm. Normal inferior vena cava. Normal retroperitoneum. There is a distended urinary bladder. There is evidence of prior anterior abdominal wall hernia repair with a mesh. There are degenerative changes of the visualized lumbar spine. CT/Abdomen/Pelvis W IV Cont ONLY IMPRESSION: Fatty infiltration of the liver. Small gallstones. Extensive atherosclerotic vascular disease. Prior anterior abdominal wall hernia repair with mesh. Stable anastomosis of the distal ileum into the colon as well as colorectal anastomosis. Electronically Signed: Deondre Garcia MD at 13:06 EST ,
--- NOTE | 2024-09-15 11:30 | EKG12_ITS ---
Test Reason : Blood Pressure : */* mmHG Vent. Rate : 91 BPM Atrial Rate : 91 BPM P-R Int : 138 ms QRS Dur : 76 ms QT Int : 340 ms P-R-T Axes : 38 54 37 degrees QTcB Int : 418 ms Sinus rhythm with Premature atrial complexes Low voltage QRS Borderline ECG Confirmed by AFIA KULKARNI, SHERIF ([id number]), makeup editor MICHELLE JOSUE ([id number]) on 09/16/2024 8:15:03 AM Referred By: Confirmed By: SHERIF OREILLY MD
--- NOTE | 2024-09-15 11:30 | EX.ED.DYSGE1 ---
HPI History of Present Illness Chief Complaint: Shortness of Breath Informant: patient and spouse/S.O. Narrative Narrative: 69-year-old female presents after several hours of left lower quadrant abdominal pain this morning and several bouts of moderate amounts of bright red blood per rectum. Nausea but no vomiting. Had diverticulitis in the past and had surgery for it remotely. She takes no anticoagulants but is on baby aspirin daily. Incidentally triage her pulse oximetry was reading 70% on her home 2 L of oxygen, patient denies any worse dyspnea than usual but states she had an RSV injection about 6 weeks ago and she has had nasal and chest congestion and dyspnea with exertion and wheezing/increased COPD symptoms ever since. As a result she has been checking her pulse ox at home, and she has been requiring her home oxygen during the day which she usually uses at night. PFSH PFSH Medical History Decrease in appetite Wears hearing aid History of steroid therapy Arthritis PVD (peripheral vascular disease) Syncope Dietary restriction Gastric reflux Leg cramps Anxiety disorder Wears dentures Low iron High cholesterol History of ulceration On home oxygen therapy Post-menopausal Diverticulitis Back pain due to injury Chronic headaches History of stress test Wears glasses Chronic pain Shortness of breath Smoker History of cardiovascular stress test Leg pain S/P arteriogram of extremity Essential hypertension COPD (chronic obstructive pulmonary disease) Incisional hernia without mention of obstruction or gangrene Impaired fasting glucose History of pelvic hematoma Duodenal ulcer Clostridium difficile colitis Closed fracture of fifth metatarsal bone of left foot Injury, spleen, with capsular tears Pseudocyst of pancreas Peptic ulcer disease SBO (small bowel obstruction) H/O spleen injury Asthma Hyperlipemia Alcohol abuse Home Medications ?Medication ?Instructions ?Recorded ?Last Taken ?Type carvedilol 25 mg tablet 25 mg PO BID HEART 05/28/19 06/10/24 History spironolactone 25 mg tablet 25 mg PO DAILY BLOOD PRESSURE 05/28/19 06/09/24 History alprazolam 0.5 mg tablet 0.5 mg PO TID ANXIETY 02/12/21 06/10/24 History psyllium 1 packet PO DAILY PRN CONSTPATION 02/12/21 Unknown History acetaminophen 500 mg tablet 1,000 mg PO Q6H PRN PAIN 07/19/22 02/03/24 History pantoprazole 40 mg tablet,delayed 40 mg PO BID GERD 30 days #60 tabs 10/12/22 06/10/24 Rx release guaifenesin 1,200 mg tablet, 1,200 mg PO BID PRN MUCOUS 07/02/23 06/10/24 History extended release 12 hr (Mucinex) lisinopril 40 mg tablet 40 mg PO QHS BLOOD PRESSURE 07/14/23 06/09/24 History aspirin 81 mg tablet,delayed 81 mg PO BREAKFAST HEART HEALTH 07/19/23 06/10/24 Rx release #0 tabs gabapentin 600 mg tablet 600 mg PO 4X/DAY NERVE PAIN 11/06/23 06/10/24 History tramadol 50 mg tablet 50 mg PO 4X/DAY PRN PAIN 11/06/23 06/10/24 History albuterol sulfate 90 mcg/actuation 2 puff inhalation Q4H PRN 11/15/23 02/03/24 Rx aerosol inhaler (Ventolin HFA) shortness of breath or wheezing #18 grams fluticasone fur. 200 mcg-umeclid 1 inh inhalation DAILY ASTHMA #60 11/15/23 06/10/24 Rx 62.5 mcg-vilant 25 mcg ea inhalat.powder (Trelegy Ellipta) clopidogrel 75 mg tablet 75 mg PO DAILY BLOOD THINNER #90 11/21/23 06/10/24 Rx tabs multivitamin with minerals-folic 1 tab PO DAILY SUPPLEM 01/30/24 06/10/24 History acid 80 mcg chewable tablet (Centrum Adult 50 Plus) atorvastatin 80 mg tablet 80 mg PO QHS CHOLESTEROL #90 tabs 02/27/24 06/09/24 Rx docusate sodium 100 mg capsule 100 mg PO BID 7 days #14 caps 06/11/24 Unknown Rx miscellaneous medical supply #1 ea 06/19/24 Unknown Rx doxycycline hyclate 100 mg tablet 100 mg PO BID #20 tabs 08/18/24 Unknown Rx famotidine 20 mg tablet (Pepcid) 20 mg PO DAILY #14 tabs 08/24/24 Unknown Rx ondansetron 4 mg disintegrating 4 mg PO Q8H PRN PRN Nausea #10 tabs 08/24/24 Unknown Rx tablet prednisone 10 mg tablet 10 mg PO QDAY #3 tabs 08/27/24 Unknown Rx ipratropium 0.5 mg-albuterol 3 mg 3 ml inhalation Q4H PRN PRN SOB 09/01/24 Unknown Rx (2.5 mg base)/3 mL nebulization &/OR WHEEZING #180 mL soln Allergy/AdvReac Type Severity Reaction Status Date / Time amlodipine AdvReac Intermediate Nausea/Vom/ Verified 09/15/24 11:12 Diarrhea clonidine AdvReac Mild Nausea/Vom/ Verified 09/15/24 11:12 Diarrhea adhesive AdvReac Rash Verified 09/15/24 11:12 codeine AdvReac Nausea Verified 09/15/24 11:12 Family History Mother Heart disease Hypertension Diabetes Sister Hypertension Brother Hypertension Sister Hypertension Cervical cancer Brother Pancreatic cancer Surgical History History of esophagogastroduodenoscopy (EGD) Hx of colonoscopy Hx of cervical spine surgery H/O: H/O colostomy History of hernia repair Social History household members: spouse housing: house Smoking Status: Current every day smoker tobacco type: cigarettes Electronic Cigarette Use: not used second hand exposure: Yes alcohol intake: current alcohol intake frequency: a few times a week substance use type: does not use caffeine: Yes what type of physical activity do you participate in: bicycling frequency: 1-2 times per week ROS ROS ED Constitutional Constitutional ED: Denies chills or fever(s) Eyes Eyes: Denies change in vision or diplopia ENT ENT ED: Reports nasal congestion; Denies rhinorrhea or sore throat Cardiovascular Cardiovascular: Denies chest pain or palpitations Respiratory/Chest Respiratory/Chest: Reports chest congestion, chest tightness, cough, dyspnea and wheezing Gastrointestinal Gastrointestinal: Reports abdominal pain, hematochezia and nausea; Denies hematemesis, hemorrhoids, melena or vomiting Genitourinary Genitourinary ED: Denies dysuria or hematuria Musculoskeletal Musculoskeletal: Reports back pain and other Details: Left low back pain chronic unchanged this morning ; Denies neck pain Integumentary Denies abscess or rash Neurologic Neurologic: Denies headache(s), paresthesias or weakness Psychiatric Psychiatric: Denies anxiety or suicidal thoughts EXAM Physical Exam Const Vital Signs: 09/15/24 11:10 09/15/24 11:13 09/15/24 11:50 Temperature 97.0 F L Temperature Source Temporal Pulse Rate 96 89 Respiratory Rate 24 H 18 Respiratory Effort Normal Respiratory Pattern Normal Blood Pressure 148/71 H Blood Pressure Mean 96 Pulse Ox 99 Oxygen Delivery Method Nasal Cannula Nasal Cannula Oxygen Flow Rate (L/min) 3 3 09/15/24 11:54 09/15/24 12:07 09/15/24 12:12 Temperature 97.5 F L Temperature Source Temporal Pulse Rate 90 94 Respiratory Rate 16 20 H Respiratory Effort Respiratory Pattern Blood Pressure 141/66 H 141/66 H Blood Pressure Mean 91 91 Pulse Ox 97 95 100 Oxygen Delivery Method Nasal Cannula Nasal Cannula Nasal Cannula Oxygen Flow Rate (L/min) 2 2 09/15/24 13:00 Temperature 98.2 F Temperature Source Temporal Pulse Rate 93 Respiratory Rate 18 Respiratory Effort Respiratory Pattern Blood Pressure 126/57 H Blood Pressure Mean 80 Pulse Ox 100 Oxygen Delivery Method Nasal Cannula Oxygen Flow Rate (L/min) 2 Positive well nourished and well developed General Appearance ED: well developed and NAD HEENT Reports moist mucous membranes normocephalic and atraumatic Eyes PERRL and EOMs intact bilaterally Neck full ROM and supple Resp normal respiratory effort Resp Narrative: Diffuse expiratory wheezes without rales or rhonchi. Equal breath sounds bilaterally. Effort and Inspection: able to speak in complete sentences Cardio regular rate, regular rhythm and no murmurs GI non-distended GI Narrative: Tender diffusely but mostly in the left lower quadrant without guarding or rebound or pulsatile mass. Normal inspection. On rectal exam, there is no tenderness and no hemorrhoids. GRICEL shows a trace amount of red stool present without active bleeding or pooling. Auscultation: normoactive bowel sounds Palpation: soft Back/Spine no CVA tenderness General Back: other FROM Extremity normal to inspection General Extremety ED: Negative for edema, pulses abnormal or tenderness General Extremity: Negative for edema or pulses abnormal Neuro oriented x3, CN's II-XII intact bilaterally and no sensory deficits noted Sensorium / Orientation: awake and alert Motor Exam: strength 5/5 throughout Psych mental status grossly normal Skin no rashes or lesions noted and no wounds MDM MDM MDM Narrative Medical decision making narrative: Given her left lower quadrant pain and tenderness and history of diverticulitis, obtain a CT, however more concerned about diverticulosis bleeding rather than diverticulitis. The results of the CT confirmed lack of diverticulitis, I reviewed the images and the report which I agree with. Her hemoglobin is 7 and she had another bloody bowel movement here, confirming her need for a blood transfusion. We discussed risk and benefits, patient is amenable to this, typed and crossed for 2 units. For hemoglobin 7.0. Given that she is continuing to have bleeding, I think that is reasonable treatment. I discussed with Dr. Friend he is in agreement. Her BUN is normal confirming this is probably a lower GI bleed. Will start blood and discussed with hospitalist for admission further care. Blood pressure has been stable in the ER and clinically she has been stable at rest. Lab Data Attestation: I reviewed the patient's lab results. Labs: Laboratory Results - last 24 hr 09/15/24 11:15 WBC 11.0 RBC 3.00 L Hgb 7.0 L Hct 24.7 L MCV 82.3 MCH 23.3 L MCHC 28.3 L RDW Std Deviation 59.0 H RDW Coeff of Renea 19.6 H Plt Count 545 H MPV 9.6 Immature Gran % (Auto) 0.500 Neut % (Auto) 78.3 H Lymph % (Auto) 11.4 L Child[place] % (Auto) 8.1 Eos % (Auto) 1.4 Baso % (Auto) 0.3 Absolute Neuts (auto) 8.6 H Absolute Lymphs (auto) 1.25 Nucleated RBC % 0 Sodium 136 Potassium 4.6 Chloride 100 Carbon Dioxide 31.0 Anion Gap 5 BUN 10 Creatinine 0.82 Estim Creat Clear Calc 62.46 Est GFR (MDRD) Af Amer 89 Est GFR (MDRD) Non-Af 74 BUN/Creatinine Ratio 12.2 Glucose 94 Lactic Acid 1.0 Calcium 9.0 Total Bilirubin 0.30 AST 17 ALT 16 Alkaline Phosphatase 102 Troponin I High Sens 5 Total Protein 6.3 L Albumin 2.8 L Globulin 3.5 Albumin/Globulin Ratio 0.8 L Radiography Diagnostic Testing: Clinical Impression(s) from Imaging Studies Abdomen/Pelvis CT 09/15/24 11:28 IMPRESSION: Fatty infiltration of the liver. Small gallstones. Extensive atherosclerotic vascular disease. Prior anterior abdominal wall hernia repair with mesh. Stable anastomosis of the distal ileum into the colon as well as colorectal anastomosis. Electronically Signed: Deondre Garcia MD at 13:06 EST , Chest X-Ray 09/15/24 12:15 IMPRESSION: Findings suggestive of stable mild scarring at the left lung base. No acute abnormalities. Electronically Signed: Deondre Garcia MD at 12:51 EST , Rhythm Strip Rhythm Strip: Sinus Rhythm Rate: 90 Ectopy: None EKG Initial EKG: Attestation: I personally reviewed and interpreted this EKG as follows: Interpretation: Sinus Rhythm and No Acute Injury Pattern Comments: Nml axis & intervals; nml EKG Management Discussion w/another healthcare provider: Hospitalist and Environmental Educator (GI friend) Critical Care Time Critical Care Time: Yes Critical care time (excluding procedures): 30-74 minutes (33 minutes), Including time spent:, Discussing w/Patient &/or Family/Bioinformatics Technician, Discussing w/Consultants, Arranging Admission or Transfer and Performing Direct Patient Care at Bedside Discharge Plan Dx/Rx/DC Orders Clinical Impression: ABLA (acute blood loss anemia), Acute lower gastrointestinal bleeding, History of diverticulosis Disposition Disposition: Acute Care [facility]
[2024-09-15 11:45] LABS: Absolute Lymphocyte Count 1.25 X10^3/uL (0.83-4.51); Absolute Neutrophil Count 8.6 X10^3/uL (2.0-7.7); Basophil# 0.03 X10^3/uL; Basophil% 0.3 % (0-1); Eosinophil# 0.15 X10^3/uL; Eosinophils% 1.4 % (0-5); Hematocrit 24.7 % (37-47); Lymphocyte # 1.25 X10^3/ul (0.83-4.51); Lymphocyte % 11.4 % (19-41); Mean Corp Hgb Conc 28.3 g/dL (32-36); Mean Corpuscular Hgb 23.3 pg (27.0-32.0); Mean Corpuscular Volume 82.3 fL (81-99); Mean Platelet Vol. 9.6 fl (6.2-12.0); Monocyte# 0.89 X10^3/uL; Monocyte% 8.1 % (0-10); NRBC Flagged by Analyzer 0 % (0-5); Neutrophil % 78.3 % (47-70); Platelet Count 545 K/mm3 (150-450); RBC Distribution Width CV 19.6 % (11.6-14.6)
[2024-09-15] MEDS: Ipratropium/Albuterol Sulfate 3 ML AMPUL.NEB INHALATION ×2 (11:48→20:01)
[2024-09-15] MEDS: 0.9% Normal Saline (500mL Bag) 500 ML 999 ML IV (11:52)
[2024-09-15] MEDS: Morphine 2 MG/ML Syringe IV (11:52)
[2024-09-15] MEDS: Ondansetron 4 MG/2 ML Vial IV ×2 (11:52→20:46)
[2024-09-15 12:06] LABS: ALB/GLOB Ratio 0.8 RATIO (0.9-2.4); AST(SGOT) 17 U/L (15-37); Alanine Aminotransfer ALT/SGPT 16 U/L (13-56); Albumin, Serum 2.8 g/dL (3.2-5.0); Alkaline Phosphatase 102 U/L (45-117); Anion Gap 5 (5-15); BUN 10 mg/dL (7-18); BUN/Creat Ratio 12.2 RATIO (10-20); Chloride 100 mmol/L (98-107); Creatinine, Serum 0.82 mg/dL (0.55-1.02); EST Glomerular Filtration Rate 74 mL/min (>60); Est Glom Filt Rate - Afr Amer 89 mL/min (>60); Estimated Creatinine Clearance 62.46 ml/min; Globulin 3.5 g/dL (2.2-4.2); Glucose 94 mg/dL (74-106); Potassium 4.6 mmol/L (3.5-5.1); Protein, Total 6.3 g/dL (6.4-8.2); Sodium Level 136 mmol/L (136-145); Troponin-I HS 5 pg/mL (3.0-54.0)
--- NOTE | 2024-09-15 12:15 | RAD_ITS ---
STUDY: X-RAY CHEST REASON FOR EXAM: Female, 69 years old. Cough/sob TECHNIQUE: PA and lateral views of the chest. COMPARISON: Comparison is made with prior study dated August 24, 2024. FINDINGS: EKG electrodes are seen. Stable mild increased linear markings at the left lung base suggestive of scarring. There is no demonstrated pleural abnormality. Normal size heart. Normal mediastinum and trisha. Normal visualized pulmonary arteries. There is atherosclerotic calcification of the aortic arch with tortuosity. There are diffuse degenerative changes of the visualized thoracic spine. Multiple healed left rib fractures. Linear metallic coils are seen in the left upper quadrant most likely representing embolic coils within the splenic vein or artery. RAD/Chest PA and Lateral IMPRESSION: Findings suggestive of stable mild scarring at the left lung base. No acute abnormalities. Electronically Signed: Deondre Garcia MD at 12:51 EST ,
--- NOTE | 2024-09-15 13:38 | PCM.HP.STD ---
[facility] - General General Date of Service: 09/15/24 Chief Complaint: Mild LLQ pain with bright red stools [facility] Narrative BAHMAN MICHELE, is a 69 F who presented to [facility] ED on 09/15/2024 with mild left lower quadrant abdominal pain with bright red stools. Pain began yesterday evening patient had 1 small bowel movement with mainly stool and small amount of blood. However this morning she had 4 bright red bloody stools so she came in for further evaluation. On chart review, patient has had extensive GI history. Has history of colectomy, large ventral hernia repair and multiple small bowel obstructions. Last SBO was in February and she was admitted here and followed by general surgery. She was hospitalized from 02/14-02/17. The SBO resolved without any need for surgery but hospitalization was complicated by acute blood loss anemia concerning for GI bleed. However, EGD was unremarkable and colonoscopy showed normal colon aside from a small polyp that was removed with hot snare. Blood count stabilized without any intervention. Patient denies any dark or bloody bowel movements since that time. She notably was on Xarelto, aspirin and Plavix and and is currently only on aspirin and Plavix. In the ED she was borderline tachycardic with heart rate 96 but otherwise normotensive and stable on room air. Hemoglobin was 7.0, down from 9.8 on 08/24 though notably she has had multiple hemoglobin values in the 7-8 range over the past few months. BNP was unremarkable. CT abdomen pelvis with IV contrast showed no active areas of bleeding. He did have another small bright red bloody stool in the ED so decision was made to transfuse patient to units of blood. ED physician spoke with Dr. Murillo who was agreeable to seeing the patient here. Hospitalist was then contacted for admission. I saw the patient at bedside in the ED. Patient was somewhat pale appearing but otherwise had good energy level and was laying back comfortably in bed and in no acute distress. She reported very mild left lower quadrant abdominal pain currently. She otherwise denied any other pain or discomfort. Denied any URI symptoms. Denied any nausea. Denied any fevers or chills. Denies any significant history of constipation or hard stools. No other acute concerns currently. Will be admitted for further management. [facility] Medical History Decrease in appetite Wears hearing aid History of steroid therapy Arthritis PVD (peripheral vascular disease) Syncope Dietary restriction Gastric reflux Leg cramps Anxiety disorder Wears dentures Low iron High cholesterol History of ulceration On home oxygen therapy Post-menopausal Diverticulitis Back pain due to injury Chronic headaches History of stress test Wears glasses Chronic pain Shortness of breath Smoker History of cardiovascular stress test Leg pain S/P arteriogram of extremity Essential hypertension COPD (chronic obstructive pulmonary disease) Incisional hernia without mention of obstruction or gangrene Impaired fasting glucose History of pelvic hematoma Duodenal ulcer Clostridium difficile colitis Closed fracture of fifth metatarsal bone of left foot Injury, spleen, with capsular tears Pseudocyst of pancreas Peptic ulcer disease SBO (small bowel obstruction) H/O spleen injury Asthma Hyperlipemia Alcohol abuse Home Medications ?Medication ?Instructions ?Recorded ?Last Taken ?Type carvedilol 25 mg tablet 25 mg PO BID HEART 05/28/19 09/15/24 History spironolactone 25 mg tablet 25 mg PO DAILY BLOOD PRESSURE 05/28/19 09/14/24 History alprazolam 0.5 mg tablet 0.5 mg PO TID ANXIETY 02/12/21 09/15/24 History acetaminophen 500 mg tablet 1,000 mg PO Q6H PRN PAIN 07/19/22 09/14/24 History pantoprazole 40 mg tablet,delayed 40 mg PO BID GERD 30 days #60 tabs 10/12/22 09/14/24 Rx release guaifenesin 1,200 mg tablet, 1,200 mg PO BID PRN MUCOUS 07/02/23 06/10/24 History extended release 12 hr (Mucinex) lisinopril 40 mg tablet 40 mg PO QHS BLOOD PRESSURE 07/14/23 09/14/24 History aspirin 81 mg tablet,delayed [address] [facility] 07/19/23 09/14/24 Rx release #0 tabs gabapentin 600 mg tablet 600 mg PO 4X/DAY NERVE PAIN 11/06/23 09/14/24 History tramadol 50 mg tablet 50 mg PO 4X/DAY PRN PAIN 11/06/23 09/15/24 History albuterol sulfate 90 mcg/actuation 2 puff inhalation Q4H PRN 11/15/23 02/03/24 Rx aerosol inhaler (Ventolin HFA) shortness of breath or wheezing #18 grams fluticasone fur. 200 mcg-umeclid 1 inh inhalation DAILY ASTHMA #60 11/15/23 09/14/24 Rx 62.5 mcg-vilant 25 mcg ea inhalat.powder (Trelegy Ellipta) clopidogrel 75 mg tablet 75 mg PO DAILY BLOOD THINNER #90 11/21/23 09/15/24 Rx tabs multivitamin with minerals-folic 1 tab PO DAILY SUPPLEM 01/30/24 09/15/24 History acid 80 mcg chewable tablet (Centrum Adult 50 Plus) atorvastatin 80 mg tablet 80 mg PO QHS CHOLESTEROL #90 tabs 02/27/24 09/14/24 Rx miscellaneous medical supply #1 ea 06/19/24 Unknown Rx ipratropium 0.5 mg-albuterol 3 mg 3 ml inhalation Q4H PRN PRN SOB 09/01/24 09/15/24 Rx (2.5 mg base)/3 mL nebulization &/OR WHEEZING #180 mL soln Allergy/AdvReac Type Severity Reaction Status Date / Time amlodipine AdvReac Intermediate Nausea/Vom/ Verified 09/15/24 11:12 Diarrhea clonidine AdvReac Mild Nausea/Vom/ Verified 09/15/24 11:12 Diarrhea adhesive AdvReac Rash Verified 09/15/24 11:12 codeine AdvReac Nausea Verified 09/15/24 11:12 Family History (Reviewed 09/05/24 @ 14:00 by Mary Zimmerman APPLICATION DEVELOPMENT PROJECT MANAGER, APPLICATION DEVELOPMENT PROJECT MANAGER-C) Mother Heart disease Hypertension Diabetes Sister Hypertension Brother Hypertension Sister Hypertension Cervical cancer Brother Pancreatic cancer Surgical History History of esophagogastroduodenoscopy (EGD) Hx of colonoscopy Hx of cervical spine surgery H/O: H/O colostomy History of hernia repair Social History household members: spouse housing: house Smoking Status: Current every day smoker tobacco type: cigarettes Electronic Cigarette Use: not used second hand exposure: Yes alcohol intake: current alcohol intake frequency: a few times a week substance use type: does not use caffeine: Yes what type of physical activity do you participate in: bicycling frequency: 1-2 times per week ROS Constitutional Constitutional: Denies chills, fatigue, fever(s) or weakness Eyes Eyes: Denies change in vision Cardiovascular Cardiovascular: Denies chest pain Respiratory/Chest Respiratory/Chest: Reports shortness of breath with exertion; Denies cough, productive cough, shortness of breath at rest or wheezing Gastrointestinal Gastrointestinal: Reports abdominal pain and hematochezia; Denies constipation, nausea or vomiting Genitourinary Genitourinary: Denies dysuria Musculoskeletal Musculoskeletal: Denies arthralgias or myalgias Neurologic Neurologic: Denies dizziness or headache(s) Vital Signs Vital Signs Vital Signs: 09/15/24 11:10 09/15/24 11:13 09/15/24 11:50 Temperature 97.0 F L Temperature Source Temporal Pulse Rate 96 89 Respiratory Rate 24 H 18 Respiratory Effort Normal Respiratory Pattern Normal Blood Pressure 148/71 H Blood Pressure Mean 96 Pulse Ox 99 Oxygen Delivery Method Nasal Cannula Nasal Cannula Oxygen Flow Rate (L/min) 3 3 09/15/24 11:54 09/15/24 12:07 09/15/24 12:12 Temperature 97.5 F L Temperature Source Temporal Pulse Rate 90 94 Respiratory Rate 16 20 H Respiratory Effort Respiratory Pattern Blood Pressure 141/66 H 141/66 H Blood Pressure Mean 91 91 Pulse Ox 97 95 100 Oxygen Delivery Method Nasal Cannula Nasal Cannula Nasal Cannula Oxygen Flow Rate (L/min) 2 2 09/15/24 13:00 Temperature 98.2 F Temperature Source Temporal Pulse Rate 93 Respiratory Rate 18 Respiratory Effort Respiratory Pattern Blood Pressure 126/57 H Blood Pressure Mean 80 Pulse Ox 100 Oxygen Delivery Method Nasal Cannula Oxygen Flow Rate (L/min) 2 Weight Weight: 84.5 kg Body Mass Index (BMI) 37.6 Physical Exam Const alert, oriented x3 and no apparent distress Constitutional Narrative: Elderly female, class I obesity, mildly pale appearing, otherwise laying back comfortably in bed, conversing normally, in no acute distress. General Appearance: cooperative and comfortable HEENT normocephalic, head/scalp atraumatic, hearing grossly normal bilaterally, nasal mucous membranes and turbinates normal and moist oral mucous membranes Eyes PERRL, EOMs intact bilaterally and conjunctivae normal Neck full ROM Chest inspection of chest normal Resp normal respiratory effort, normal air movement, no use of accessory muscles and clear to auscultation bilaterally Cardio regular rate, regular rhythm, no murmurs and peripheral pulses 2+ throughout GI normal to inspection, nondistended, normoactive bowel sounds, soft to palpation and non-distended GI Narrative: Mild tenderness to palpation in left lower quadrant, abdomen otherwise soft and nondistended. Back/Spine normal ROM Extremity normal to inspection, full ROM and no pedal edema Skin no rashes or lesions noted Psych mental status grossly normal Results Lab / Micro Data 09/15/24 11:15 09/15/24 11:15 Labs: Laboratory Results - last 24 hr 09/15/24 11:15: WBC 11.0, RBC 3.00 L, Hgb 7.0 L, Hct 24.7 L, MCV 82.3, MCH 23.3 L, MCHC 28.3 L, RDW Std Deviation 59.0 H, RDW Coeff of Renea 19.6 H, Plt Count 545 H, MPV 9.6, Immature Gran % (Auto) 0.500, Neut % (Auto) 78.3 H, Lymph % (Auto) 11.4 L, Valencia % (Auto) 8.1, Eos % (Auto) 1.4, Baso % (Auto) 0.3, Absolute Neuts (auto) 8.6 H, Absolute Lymphs (auto) 1.25, Nucleated RBC % 0, Sodium 136, Potassium 4.6, Chloride 100, Carbon Dioxide 31.0, Anion Gap 5, BUN 10, Creatinine 0.82, Estim Creat Clear Calc 62.46, Est GFR (MDRD) Af Amer 89, Est GFR (MDRD) Non-Af 74, BUN/Creatinine Ratio 12.2, Glucose 94, Lactic Acid 1.0, Calcium 9.0, Total Bilirubin 0.30, AST 17, ALT 16, Alkaline Phosphatase 102, Troponin I High Sens 5, Total Protein 6.3 L, Albumin 2.8 L, Globulin 3.5, Albumin/Globulin Ratio 0.8 L Rhythm Strip Rhythm Strip: Sinus Rhythm Rate: 90 Ectopy: None Imaging Radiology Impression Abdomen/Pelvis CT 09/15/24 11:28 IMPRESSION: Fatty infiltration of the liver. Small gallstones. Extensive atherosclerotic vascular disease. Prior anterior abdominal wall hernia repair with mesh. Stable anastomosis of the distal ileum into the colon as well as colorectal anastomosis. Electronically Signed: Deondre Garcia MD at 13:06 EST , Chest X-Ray 09/15/24 12:15 IMPRESSION: Findings suggestive of stable mild scarring at the left lung base. No acute abnormalities. Electronically Signed: Deondre Garcia MD at 12:51 EST , Assessment & Plan Assessment/Plan (1) Acute lower gastrointestinal bleeding: (2) ABLA (acute blood loss anemia): PLAN: Plan Patient is a 69-year-old female who presented [facility] ED on 09/15/2024 with LLQ pain and bright red stools. 1. Suspected lower GI bleed with acute blood loss anemia ? Admit under patient status to PCU. GI consulted. Presentation seems most consistent with diverticular bleed versus small bleed from other colonic irritation. CTAP with IV contrast showed no areas of active bleeding. Notably did have colonoscopy in February that showed no overt diverticulosis. Hemoglobin 7.0 on admit, baseline appears to be around 8-9. Has borderline tachycardia but otherwise hemodynamically stable. Will give 2 units of blood and recheck CBC tonight and tomorrow morning. Okay for clear liquids for now but n.p.o. at midnight in case of need for procedure with GI tomorrow. 2. Recent history of revision of femoral?popliteal bypass surgery ? Follows with Dr. Lopez. Had revision of femoral?popliteal bypass with endarterectomy/patch proximal graft on 06/10/2024. I discussed patient with Dr. Lopez over the phone and he noted it was safe to hold aspirin and Plavix. He recommended restarting aspirin first when appropriate and could then restart Plavix a few days after that. Continue home statin. 3. History of SBO with colectomy, history of large ventral hernia repair ? Hospitalized here in February for recurrent SBO and followed by general surgery. Did not require surgery at that time. CTAP on this admit showed stable anastomosis of the distal ileum and the colon as well as colorectal anastomosis, as well as prior anterior abdominal wall hernia repair with mesh that was stable. No surgical needs at this time. 4. COPD with chronic respiratory failure ? Follows with outpatient pulmonology. Stable on home 2 L nasal cannula on admit, no wheezing noted on exam and chest x-ray unremarkable so minimal concern for COPD exacerbation. Continue home inhalers. 5. Tobacco abuse ? Current smoker, smokes only 3 to 5 cigarettes/day. Longstanding smoking history. Denied need for nicotine patch while inpatient. Encouraged cessation on discharge. Chronic medical conditions: ? Class I obesity: BMI 33 on admit. Complicates hospital course, care and prognosis. ? Anxiety: Stable. Continue home alprazolam as needed. Checked OARRS and she has been filling this regularly. ? Hypertension: Normotensive in the ED. Will hold home carvedilol, lisinopril and spironolactone for now but low threshold to restart as needed. ? Chronic pain with neuropathy: Continue home gabapentin and tramadol as needed. Checked OARRS and patient has been filling these regularly. ? GERD: Continue home PPI. DVT prophylaxis: SCDs CODE STATUS: Full code, verified Expected disposition: Home, TBD Total clinical time spent by myself addressing the patient's medical issues, reviewing all the data, and collaborating with patient's care team: 75 minutes. Charges/Coding Visit Charges Inpatient E&M: 07265 Init Hosp L3
[2024-09-15] MEDS: Gabapentin 600 MG Tablet PO ×2 (17:05→20:51)
[2024-09-15] MEDS: Budesonide Respules 0.5 MG/2 ML AMPUL.NEB. INHALATION (20:01)
[2024-09-15] MEDS: Nystatin Powder 15gm Bottle 1 APPLIC TOPICAL (20:49)
[2024-09-15] MEDS: ALPRAZolam 0.5 MG Tablet PO (20:50)
[2024-09-15] MEDS: Pantoprazole Sodium 40 MG Tablet PO (20:51)
[2024-09-15] MEDS: Atorvastatin Calcium 80 MG Tablet PO (20:51)
[2024-09-16] VITALS (7 sets, daily range): BP systolic 118–151; BP diastolic 51–96; PULSE 90–105; RESP 18; TEMP 36.6–36.9; O2SAT 94–97
[2024-09-16 00:33] LABS: Hematocrit 26.7 % (37-47); Hemoglobin 8.5 g/dL (12.0-15.0)
[2024-09-16 07:13] LABS: Hematocrit 27.2 % (37-47); Hemoglobin 8.5 g/dL (12.0-15.0); Mean Corp Hgb Conc 31.3 g/dL (32-36); Mean Corpuscular Hgb 25.8 pg (27.0-32.0); Mean Corpuscular Volume 82.7 fL (81-99); Mean Platelet Vol. 9.2 fl (6.2-12.0); Platelet Count 380 K/mm3 (150-450); RBC Distribution Width CV 17.5 % (11.6-14.6); RBC Distribution Width SD 52.8 fl (35.1-43.9); Red Blood Count 3.29 M/mm3 (4.2-5.4); White Blood Count 8.8 K/mm3 (4.4-11.0)
[2024-09-16 07:21] LABS: International Normalized Ratio 1.1; Prothrombin Time (Protime)PT. 13.9 SECONDS (11.7-14.9)
[2024-09-16 07:22] LABS: Partial Thromboplast Time 28.3 Seconds (24.1-36.2)
[2024-09-16 07:44] LABS: Anion Gap 2 (5-15); BUN 10 mg/dL (7-18); Calcium,Total 8.8 mg/dL (8.5-10.1); Chloride 105 mmol/L (98-107); Creatinine, Serum 0.62 mg/dL (0.55-1.02); EST Glomerular Filtration Rate 100 mL/min (>60); Est Glom Filt Rate - Afr Amer 121 mL/min (>60); Estimated Creatinine Clearance 60.54 ml/min; Glucose 81 mg/dL (74-106); Potassium 4.7 mmol/L (3.5-5.1); Sodium Level 137 mmol/L (136-145)
--- NOTE | 2024-09-16 10:00 | CASEMGMT ---
RN [facility] TECH[facility] CM to room to meet with patient for initial transition planning/care coordination assessment. MARGO VALLEJO introduced self and role at [facility]. Pt voices understanding and consents to assessment at this time. Pt sitting up in bed in no distress at this time, but she does voice frustration w/not knowing what time her scopes are and inquiring why she hasn't received any of her medications. Questions answered. Pt's RN then came in the room, made aware of pt's questions/concerns, and states will f/u with physician re: what medications can be given this AM. Pt voices appreciation and stated felt better about things once this information was provided. Pt is A/O at this time and answers all questions appropriately. Care providers, pharmacy, and demographics verified/updated at this time. PCP: Dr Gray Specialists: Dr Lopez-vascular, Dr Tamara Valdivia & Mary Zimmerman, LAB CLERK-pulmonology, Dr Delarosa-urology, Dr Bhat-mike mgnt Preferred Pharmacy: Pt goes to [facility], but would like to get meds from [facility] @ [facility]. Insurance: [facility] MCR dual, [facility] HUY Prescription Benefit: Yes Living Will/HPOA: Pt does not currently have LW/HCPOA and declines info at this time.? Pt made aware that she can contact as an out-pt and make appt in the future if dhe decides dhe would like to talk with someone about this or would like to utilize [facility] social work for advanced directive completion.??? LNOK: , Eloy. Pt has 2 daughters (Tasia and Fanny) and 2 sons (Eloy and Avni) Living Arrangements: Lives w/ and daughter, Fanny, in 2-story home w/1-2 steps to enter. [employer]. Independent w/ADL's and manages her own medications and appts. manages home tasks. She states her daughter can assist, if needed. Transportation: Pt states drives self and states no transportation concerns at this time. also drives. DME: States has the following DME: grab bars, pulse ox, BP machine, nebulizer, O2 @ 2 l/m continuous through [employer]. She states she has a portable tank her can bring in @ dc for her to go home on. Pt states she would like a shower chair. Made aware her insurance (HUY part) may cover for shower chair, but this is not certain. She states she will take a script @ discharge and states will f/u about this on her own. Pt states no need for further DME at this time. HHC/SNF: No hx of either. No needs identified. Pt denies need for HHC or therapy. Pt wishes to return home and states has no concerns with going home at time of discharge. CM to follow for any further discharge planning/needs. Pt voices no further concerns/needs at this time. Advised pt to ask for CM if any further questions/concerns/needs arise. Voices understanding. PLAN: Home Pt to be provided w/script for shower chair @ [place]. Garry SPANN RN CM
[2024-09-16] MEDS: ALPRAZolam 0.5 MG Tablet PO ×2 (10:01→18:10)
[2024-09-16] MEDS: traMADol 50 MG Tablet PO ×2 (10:01→18:10)
[2024-09-16 12:48] LABS: Hematocrit 27.6 % (37-47); Hemoglobin 8.6 g/dL (12.0-15.0)
--- NOTE | 2024-09-16 13:00 | NURSING ---
This RN taking over care at this time
[2024-09-16] MEDS: Gabapentin 600 MG Tablet PO ×3 (14:30→22:48)
--- NOTE | 2024-09-16 15:30 | CHAPLAIN ---
Type of Pastoral Visit _x__ Initial Visit ___ Follow-up Visit ___ On-call Visit ___ General Patient Visit ___ Spiritual Assessment ___ Family Conference ___ Bereavement ___ Rapid Response ___ Code Blue ___ Other (describe below) Pastoral Care Referral From _x__ Patient ___ Family ___ Nurse ___ Physician ___ Release Manager ___ Electric Meter Tester ___ Other (describe below) Sacrament/Intervention ___ Active listening ___ Anointing ___ Congregation ___ Bereavement ___ Communion ___ Radha exploration ___ ___ Life review _x__ Prayer ___ Reconciliation ___ Sacrament of Sick _x__ Supportive presence ___ Wedding ___ Other (describe below) Pastoral Comments patient is watching TV and 'waiting on when the procedure happens; pt states that she is fine but that a prayer would be welcomed; pt says that her radha is what helps her through her life
--- NOTE | 2024-09-16 18:21 | PN.HOSP_ITS ---
Reason for Visit Reason for Visit: Left lower quadrant pain/bright red blood per rectum Subjective Subjective Patient is a 69-year-old female with a complicated past medical history on aspirin and Plavix who presented to the emergency department at [facility] on 09/15/2024 with a chief complaint of mild left lower quadrant pain and bright red blood per rectum. The pain began about 24 hours prior to presentation with 1 small stool containing bright red blood however on the morning of admission she indicated she had 4 bright red bloody bowel movements and therefore came in for further evaluation. She does have a history of colectomy and a large ventral hernia repair with multiple small bowel obstructions. Most recently she was admitted in February with a small bowel obstruction. She did have concerns for GI bleed at that time as well and EGD was performed and found to be unremarkable and her colonoscopy was performed and showed only a small polyp that was removed with hot snare. Hemoglobin stabilized without any intervention and she was discharged home. Does not appear she followed up for other capsule endoscopy. She had notably been on triple therapy at that time and now is only on dual antiplatelet therapy. Vital signs on presentation showed a temperature of 97.0, heart rate 96, respiratory 24, blood pressure was 148/71 and pulse ox was 93% on 3 L nasal cannula which is her baseline oxygen requirement. CBC showed anemia with hemoglobin of 7 and her previous hemoglobin in mid August was 9.8. This was normocytic at this time but previously has been microcytic. Platelet count slightly elevated at 545. Coags were normal. Chemistry panel was unremarkable. CT of the abdomen pelvis showed had infiltration of liver, small gallstones, extensive atherosclerotic vascular disease, prior anterior abdominal wall hernia repair with mesh and stable anastomosis of the distal ileum into the colon as well as colorectal anastomosis. She was given 2 units of packed red blood cells and admitted to the medical floor with prep ordered for possible colonoscopy today. Evidently, Dr. Murillo was called by nursing and indicated she was having multiple bright red bowel movements so the prep was held but unfortunately her scope had to be delayed today. Plan for prep tonight and tomorrow. Hemoglobin has been cycled and currently appears to be stabilized. Patient is frustrated because she has not been able to be scoped today. I did try to discuss with her the potential possibilities that may have caused delay and she did calm down some with conversation. I did discuss with Dr. Murillo he indicated he would be by to talk to her later today. Objective Data Objective Data Vital Signs: Vital Signs Temp Pulse Resp BP Pulse Ox O2 Del Method O2 Flow Rate 98.2 F 105 H 18 124/96 H 97 Nasal Cannula 2 09/16/24 17:06 09/16/24 17:06 09/16/24 17:06 09/16/24 17:06 09/16/24 17:06 09/16/24 17:06 09/16/24 17:06 Oxygen Flow Rate (L/min) 2 Oxygen Delivery Method Nasal Cannula Weight: 76.2 kg Body Mass Index (BMI) 33.9 Intake & Output: Intake and Output for Last 24 Hours 09/14/24 09/15/24 09/16/24 23:59 23:59 23:59 Intake Total 2049 840 / 840 Balance 2049 840 / 840 Lab / Micro Data 09/16/24 12:38 09/16/24 06:39 Labs: Laboratory Results - last 24 hr 09/15/24 13:51: Blood Type A POSITIVE, Antibody Screen NEGATIVE, Crossmatch See Detail 09/16/24 00:10: Hgb 8.5 L, Hct 26.7 L 09/16/24 06:39: WBC 8.8, RBC 3.29 L, Hgb 8.5 L, Hct 27.2 L, MCV 82.7, MCH 25.8 L , MCHC 31.3 L D, RDW Std Deviation 52.8 H, RDW Coeff of Renea 17.5 H, Plt Count 380, MPV 9.2, PT 13.9, INR 1.1, APTT 28.3, Sodium 137, Potassium 4.7, Chloride 105, Carbon Dioxide 30.0, Anion Gap 2 L, BUN 10, Creatinine 0.62, Estim Creat Clear Calc 60.54, Est GFR (MDRD) Af Amer 121, Est GFR (MDRD) Non-Af 100, BUN/Creatinine Ratio 16.0, Glucose 81, Calcium 8.8 09/16/24 12:38: Hgb 8.6 L, Hct 27.6 L Rhythm Strip Rhythm Strip: Sinus Rhythm Rate: 90 Ectopy: None Physical Exam Const alert, oriented x3, no apparent distress and well nourished; Negative for average body habitus or healthy appearing Constitutional Narrative: Obese, upper middle-aged, white female, sitting on the bedside commode and I did help her get back to bed, appears older than stated age, currently appears comfortable, nontoxic HEENT head/scalp atraumatic and moist oral mucous membranes HEENT Narrative: Mallampati 2, no thrush Head and Scalp: normocephalic Resp normal respiratory effort, no retractions and no use of accessory muscles Resp Narrative: Coarse breath sounds bilaterally, stable on her baseline 3 L Auscultation: Negative for rales, rhonchi or wheezes Cardio regular rate, regular rhythm, S1 normal heart sound, S2 normal heart sound, no murmurs, no rub, no gallops and no clicks GI normal to inspection, nondistended, normoactive bowel sounds, soft to palpation and non-tender Extremity no clubbing, cyanosis or edema Extremity Narrative: 2+ pedal and radial pulses Neuro oriented x3, moves all extremities and no focal motor deficits Speech: speech normal Psych Psych Narrative: Slightly agitated due to not having colonoscopy today and not seeing Dr. Friend as of yet, I was able to talk to her and she did calm down and was able to interact appropriately and thanked me for care Assessment & Plan Assessment/Plan (1) Acute lower gastrointestinal bleeding: (2) ABLA (acute blood loss anemia): PLAN: Plan Lower GI bleed -Aspirin and Plavix are on hold -Patient with colonoscopy in February having no overt diverticulosis or source of bleeding -Hemoglobin 7 on admit and baseline appears to be between 8-9 and half -Received 2 units packed red blood cells and hemoglobin has stabilized -Will monitor every 6 hours -Bright red blood per rectum has seemed to resolved -Highly suspect diverticular bleed -Colon prep in progress and plan for colonoscopy tomorrow -Depending on findings and stability patient may be able to undergo discharge tomorrow Acute blood loss anemia on chronic anemia -Stabilized after 2 units packed red blood cells -No ongoing bleeding at this time -Continue to hold aspirin and Plavix -Plan per above Peripheral vascular disease with recent revision of femoropopliteal bypass -Follows with Dr. Lopez -Revision with endarterectomy and patch of proximal graft done on 06/10/2024 -Case was discussed with vascular surgery on admission and he indicated safe to hold aspirin and Plavix -Plan is to restart aspirin first and then Plavix in a few days following -Continue home statin History of SBO with colectomy/history of large ventral hernia repair -Currently appears stable -No current signs of small bowel obstruction -Ongoing outpatient follow-up as previously recommended Chronic hypoxic respiratory failure secondary to COPD -At baseline is on 2 to 3 L nasal cannula -No respiratory symptoms other than baseline symptoms at presentation -Continue home inhalers -chest x-ray shows no acute findings -Continue to monitor clinically -Continue outpatient follow-up with pulmonary medicine Essential hypertension/hyperlipidemia -Restart home carvedilol -Will continue to hold lisinopril and Aldactone and monitor blood pressures -Restart as able -Continue home statin GERD -Continue home PPI Neuropathy/chronic pain -Continue home gabapentin -Continue home gabapentin Anxiety/depression -Continue home Xanax Obesity -BMI 33.9 -Complicates treatment, prognosis, outcomes DVT prophylaxis -SCD's Code Status -FULL Code Charges/Coding Visit Charges Inpatient E&M: 75507 Subs Hosp L2
[2024-09-16 18:42] LABS: Hematocrit 27.9 % (37-47); Hemoglobin 8.8 g/dL (12.0-15.0)
[2024-09-16] MEDS: Ipratropium/Albuterol Sulfate 3 ML AMPUL.NEB INHALATION (19:05)
[2024-09-16] MEDS: Budesonide Respules 0.5 MG/2 ML AMPUL.NEB. INHALATION (19:05)
[2024-09-16] MEDS: Bisacodyl 5 MG Tablet 20 MG PO (20:02)
[2024-09-16] MEDS: Polyethylene Glycol 3350 BOWEL PREP PO (20:03)
--- NOTE | 2024-09-16 20:12 | PN.GI_ITS ---
Subjective Subjective Patient was upset that she did not get a colonoscopy today. Objective Data Objective Data Vital Signs: Vital Signs Temp Pulse Resp BP Pulse Ox O2 Del Method O2 Flow Rate 98.2 F 90 18 124/96 H 95 Nasal Cannula 2 09/16/24 17:06 09/16/24 19:05 09/16/24 19:05 09/16/24 17:06 09/16/24 19:05 09/16/24 19:05 09/16/24 19:05 Oxygen Flow Rate (L/min) 2 Oxygen Delivery Method Nasal Cannula Weight: 167 lb 15.876 oz Body Mass Index (BMI) 33.9 Intake & Output: Intake and Output for Last 24 Hours 09/14/24 09/15/24 09/16/24 23:59 23:59 23:59 Intake Total 2049 / 2289 840 / 840 Balance 2049 840 / 840 Lab / Micro Data 09/16/24 18:35 09/16/24 06:39 Labs: Laboratory Results - last 24 hr 09/15/24 13:51: Blood Type A POSITIVE, Antibody Screen NEGATIVE, Crossmatch See Detail 09/16/24 00:10: Hgb 8.5 L, Hct 26.7 L 09/16/24 06:39: WBC 8.8, RBC 3.29 L, Hgb 8.5 L, Hct 27.2 L, MCV 82.7, MCH 25.8 L , MCHC 31.3 L D, RDW Std Deviation 52.8 H, RDW Coeff of Renea 17.5 H, Plt Count 380, MPV 9.2, PT 13.9, INR 1.1, APTT 28.3, Sodium 137, Potassium 4.7, Chloride 105, Carbon Dioxide 30.0, Anion Gap 2 L, BUN 10, Creatinine 0.62, Estim Creat Clear Calc 60.54, Est GFR (MDRD) Af Amer 121, Est GFR (MDRD) Non-Af 100, BUN/Creatinine Ratio 16.0, Glucose 81, Calcium 8.8 09/16/24 12:38: Hgb 8.6 L, Hct 27.6 L 09/16/24 18:35: Hgb 8.8 L, Hct 27.9 L Rhythm Strip Rhythm Strip: Sinus Rhythm Rate: 90 Ectopy: None Physical Exam Const alert, oriented x3 and no apparent distress General Appearance: cooperative and comfortable HEENT normocephalic, head/scalp atraumatic, hearing grossly normal bilaterally, nasal mucous membranes and turbinates normal and moist oral mucous membranes Eyes PERRL, EOMs intact bilaterally and conjunctivae normal Neck full ROM Chest inspection of chest normal Resp normal respiratory effort, normal air movement, no use of accessory muscles and clear to auscultation bilaterally Cardio regular rate, regular rhythm, no murmurs and peripheral pulses 2+ throughout GI normal to inspection, nondistended, normoactive bowel sounds, soft to palpation and non-distended GI Narrative: Mild tenderness to palpation in left lower quadrant, abdomen otherwise soft and nondistended. Back/Spine normal ROM Extremity normal to inspection, full ROM and no pedal edema Skin no rashes or lesions noted Psych mental status grossly normal Assessment & Plan Assessment/Plan (1) Acute lower gastrointestinal bleeding: (2) ABLA (acute blood loss anemia): PLAN: Plan Patient is a 69-year-old female who presented [facility] ED on 09/15/2024 with LLQ pain and bright red stools. Suspected lower GI bleed with acute blood loss anemia ? Presentation seems most consistent with diverticular bleed versus small bleed from other colonic irritation. However, she is s/p segmental resection for acute diverticulitis by Dr. Amato. CTAP with IV contrast showed no areas of active bleeding. Notably did have colonoscopy in February that showed no overt diverticulosis. Hemoglobin 7.0 on admit, baseline appears to be around 8-9. She was transfused prbc's and hgb seems to be stable for now. Plan is egd and colonscopy tomorrow. Charges/Coding Visit Charges Inpatient E&M: 60858 Subs Hosp L3
[2024-09-16] MEDS: Carvedilol 25 MG Tablet PO (22:48)
[2024-09-16] MEDS: Ondansetron 4 MG/2 ML Vial IV (22:48)
[2024-09-16] MEDS: Atorvastatin Calcium 80 MG Tablet PO (22:48)
[2024-09-16] MEDS: Pantoprazole Sodium 40 MG Tablet PO (22:49)
[2024-09-16] MEDS: Nystatin Powder 15gm Bottle 1 APPLIC TOPICAL (22:49)
[2024-09-16] MEDS: 0.9% Saline Lock 10 ML Syringe IV (22:50)
[2024-09-17] VITALS (16 sets, daily range): BP systolic 85–137; BP diastolic 47–85; PULSE 93–112; RESP 16–20; TEMP 36.2–37.3; O2SAT 94–96; BMI 33.9
[2024-09-17 01:29] LABS: Hematocrit 32.5 % (37-47)
[2024-09-17] MEDS: 0.9% Saline Lock 10 ML Syringe IV (06:46)
[2024-09-17] MEDS: Ondansetron 4 MG/2 ML Vial IV (06:46)
[2024-09-17 07:38] LABS: Absolute Lymphocyte Count 1.53 X10^3/uL (0.83-4.51); Absolute Neutrophil Count 8.2 X10^3/uL (2.0-7.7); Basophil# 0.04 X10^3/uL; Basophil% 0.4 % (0-1); Eosinophil# 0.19 X10^3/uL; Eosinophils% 1.7 % (0-5); Hematocrit 30.3 % (37-47); Hemoglobin 9.2 g/dL (12.0-15.0); Lymphocyte # 1.53 X10^3/ul (0.83-4.51); Lymphocyte % 13.5 % (19-41); Mean Corp Hgb Conc 30.4 g/dL (32-36); Mean Corpuscular Hgb 25.5 pg (27.0-32.0); Mean Corpuscular Volume 83.9 fL (81-99); Mean Platelet Vol. 9.3 fl (6.2-12.0); Monocyte# 1.37 X10^3/uL; NRBC Flagged by Analyzer 0.5 % (0-5); Neutrophil # 8.16 X10^3/uL (2.7-7.7); Neutrophil % 71.7 % (47-70); Platelet Count 458 K/mm3 (150-450); RBC Distribution Width CV 18.3 % (11.6-14.6); RBC Distribution Width SD 55.2 fl (35.1-43.9); Red Blood Count 3.61 M/mm3 (4.2-5.4); White Blood Count 11.4 K/mm3 (4.4-11.0)
[2024-09-17] MEDS: Budesonide Respules 0.5 MG/2 ML AMPUL.NEB. INHALATION ×2 (07:46→19:03)
[2024-09-17] MEDS: Ipratropium/Albuterol Sulfate 3 ML AMPUL.NEB INHALATION ×2 (07:46→19:03)
[2024-09-17] MEDS: ALPRAZolam 0.5 MG Tablet PO ×2 (07:49→17:19)
[2024-09-17] MEDS: Carvedilol 25 MG Tablet PO (07:49)
[2024-09-17 08:05] LABS: Anion Gap 4 (5-15); BUN 9 mg/dL (7-18); BUN/Creat Ratio 11.5 RATIO (10-20); Calcium,Total 9.1 mg/dL (8.5-10.1); Chloride 102 mmol/L (98-107); Creatinine, Serum 0.78 mg/dL (0.55-1.02); EST Glomerular Filtration Rate 77 mL/min (>60); Est Glom Filt Rate - Afr Amer 94 mL/min (>60); Estimated Creatinine Clearance 60.54 ml/min; Glucose 85 mg/dL (74-106); Sodium Level 135 mmol/L (136-145)
--- NOTE | 2024-09-17 10:59 | PCM.PRE.AN2 ---
ASA Classification* ASA Classification ASA Classification: 3 Assessment & Plan Anesthesia* Anesthesia Assessment Anesthesia Assessment: Discussed sedation and/or anesthesia options, risks, benefits, and alternatives with patient/parents/legal guardian/POA. Questions invited. The patient/parents/legal guardian/POA seems to understand and agrees to proceed with anesthesia plan. Reviewed the physical assessment, medical history, allergy history and patient home medications list prior to surgery/procedure/anesthetic and documented any changes. Performed airway and anesthesia risk assessments. Anesthesia Type Anesthesia Type: MAC Anesthesia Focused Assessment* Temperature: 98.5 F Pulse Rate: 99 Blood Pressure: 111/61 Respiratory Rate: 18 Pulse Ox: 94 Airway Assessment Mouth opens: >3 cm Mallampati Score: II Focused Labs Anesthesia Preop lab: CBC WBC 11.4 K/mm3 (4.4-11.0) H 09/17/24 06:29 RBC 3.61 M/mm3 (4.2-5.4) L 09/17/24 06:29 Hgb 9.2 g/dL (12.0-15.0) L 09/17/24 06:29 Hct 30.3 % (37-47) L 09/17/24 06:29 Plt Count 458 K/mm3 (150-450) H 09/17/24 06:29 CHEMISTRY Potassium 5.0 mmol/L (3.5-5.1) 09/17/24 06:29 Sodium 135 mmol/L (136-145) L 09/17/24 06:29 Magnesium 2.3 mg/dL (1.6-2.6) 02/18/24 04:08 Phosphorus 4.0 mg/dL (2.5-4.9) 02/18/24 04:08 BUN 9 mg/dL (7-18) 09/17/24 06:29 Creatinine 0.78 mg/dL (0.55-1.02) 09/17/24 06:29 Glucose 85 mg/dL (74-106) 09/17/24 06:29 TSH 0.31 uIU/mL (0.358-3.74) L 11/07/23 08:44 COAG PT 13.9 SECONDS (11.7-14.9) 09/16/24 06:39 Pre-Assessment Diagnosis/Proposed Procedure Planned Operative Procedure(s): EGD, Colonoscopy Anesthesia History 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 When Was Last Pacemaker Check QUESTION #4 FULL TEXT: You/Your Family Experience fever (hyperthermia) with Anesthesia Last Oral Intake Last Oral intake: Last Oral Intake NPO since 00:00 09/17/24 10:18 Meds taken in AM with sips of Yes 09/17/24 10:18 water? Meds patient instructed to xanax and coreg 09/17/24 10:18 take am of surgery PONV PONV - mobile disc jockey: PONV - mobile disc jockey Female HX of Motion Sickness HX of N/V After Surgery Non-Smoker Duration of Surgery greater than 60 minutes Number of Risk Factors PONV Score Height & Weight Height & Weight: Anesthesia: Height & Weight Height 4 ft 11 in 09/17/24 10:18 Weight: 76.2 kg 09/17/24 10:18 Body Mass Index (BMI) 33.9 09/17/24 10:18 Respiratory Assessment Respiratory Assessment - mobile disc jockey: Respiratory Tract Infection Hx - mobile disc jockey Hx Respiratory Tract Infection No 06/05/24 09:54 STOP Sleep Apnea STOP Sleep Apnea - mobile disc jockey: STOP Sleep Apnea - mobile disc jockey Hx Hypertension Yes 09/15/24 14:30 Hx Sleep Apnea No 09/15/24 14:30 CPAP No 09/15/24 14:30 BIPAP No 09/15/24 14:30 Do you snore loudly (louder No 09/15/24 14:30 than talking or can be heard Do you often feel tired/ Yes 09/15/24 14:30 fatigued/ sleepy during daytime? Has anyone observed you stop No 09/15/24 14:30 breathing during sleep? STOP Results Positive 09/15/24 14:30 QUESTION #5 FULL TEXT : Do you snore loudly (louder than talking or can be heard through closed doors)? Tobacco Use History Tobacco Use History - mobile disc jockey: Tobacco Use History - mobile disc jockey Tobacco Use Cigarettes 03/31/24 12:07 Smoking Status Current every day smoker 09/16/24 07:45 Hx Tobacco Use Yes 09/15/24 14:30 Years Smoking Packs Smoked per Day Smoking Cessation Date was within the last 15 years Hx Smoking Cessation Date Hx Smoking Cessation No: . 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 Specify any problems Hx of Preganancy in last 3 N/A 09/15/24 14:30 Months Nurse Filling Out Transfusion FSTEINER 09/15/24 14:30 & Questions: Date: 09/15/24 09/15/24 14:30 Time: 14:31 09/15/24 14:30 Patient unable to answer at this time (ie. confused, unrespo /Reproduction History /Reproductive History - mobile disc jockey: /Reproductive Hx- mobile disc jockey Hx Now No 09/15/24 23:46 Gestational Age (in weeks): EDC: Hx Hx Para Hx Section SAB No 09/15/24 23:46 Active Medications Active Medications: Current Medications Generic Name Dose Route Start Last Admin Trade Name Freq PRN Reason Stop Dose Admin Acetaminophen 650 mg 09/15/24 14:43 Acetaminophen 325 Mg Tablet PO Q6H PRN PRN Pain 1-10 Or Fever>100.7 Albuterol/Ipratropium 3 ml 09/15/24 15:15 09/17/24 07:46 Ipratropium/Albuterol Sulfate 3 Ml Ampul.Neb INHALATION 3 ml Q6HWA.RT LAMAR Administration Albuterol/Ipratropium 3 ml 09/15/24 14:43 Ipratropium/Albuterol Sulfate 3 Ml Ampul.Neb INHALATION Q4H PRN PRN SOB &/OR WHEEZING Alprazolam 0.5 mg 09/15/24 14:43 09/17/24 07:49 Alprazolam 0.5 Mg Tablet PO 0.5 mg TID PRN PRN Administration ANXIETY Atorvastatin Calcium 80 mg 09/15/24 22:00 09/16/24 22:48 Atorvastatin Calcium 80 Mg Tablet PO 80 mg QHS LAMAR Administration Budesonide 0.5 mg 09/15/24 15:15 09/17/24 07:46 Budesonide Respules 0.5 Mg/2 Ml Ampul.Neb. INHALATION 0.5 mg Q12H.RT LAMAR Administration Carvedilol 25 mg 09/16/24 22:00 09/17/24 07:49 Carvedilol 25 Mg Tablet PO 25 mg BIDCM LAMAR Administration Protocol Gabapentin 600 mg 09/15/24 18:00 09/16/24 22:48 Gabapentin 600 Mg Tablet PO 600 mg 4X/DAY LAMAR Administration Guaifenesin 1,200 mg 09/15/24 14:43 Guaifenesin 1,200 Mg Tablet PO BID PRN MUCOUS Sodium Chloride 500 mls @ 15 mls/hr 09/15/24 14:30 IV .[id number] PRN SALINE FLUSH Sodium Chloride 500 mls @ 15 mls/hr 09/15/24 14:30 IV .[id number] PRN Saline Flush Sodium Chloride 500 mls @ 15 mls/hr 09/15/24 14:30 IV .[id number] PRN Additional IVPB Infusion Melatonin 3 mg 09/15/24 14:43 Melatonin 3 Mg Tablet PO QHS PRN PRN INSOMNIA Nystatin 1 applic 09/15/24 22:00 09/16/24 22:49 Nystatin Powder 15gm Bottle TOPICAL 1 applic BID LAMAR Administration Protocol Ondansetron HCl 4 mg 09/15/24 14:43 09/17/24 06:46 Ondansetron 4 Mg/2 Ml Vial IV 4 mg Q8H PRN PRN Administration NAUSEA/VOMITING Pantoprazole Sodium 40 mg 09/15/24 22:00 09/16/24 22:49 Pantoprazole Sodium 40 Mg Tablet PO 40 mg BID LAMAR Administration Sodium Chloride 10 - 40 ml 09/15/24 14:30 09/17/24 06:46 0.9% Saline Lock 10 Ml Syringe IV 10 ml UD PRN Administration SALINE FLUSH Tramadol HCl 50 mg 09/15/24 14:43 09/16/24 18:10 Tramadol 50 Mg Tablet PO 50 mg 4X/DAY PRN Administration PAIN PFSH Medical History GI bleed Decrease in appetite Wears hearing aid History of steroid therapy Arthritis PVD (peripheral vascular disease) Syncope Dietary restriction Gastric reflux Leg cramps Anxiety disorder Wears dentures Low iron High cholesterol History of ulceration On home oxygen therapy Post-menopausal Diverticulitis Back pain due to injury Chronic headaches History of stress test Wears glasses Chronic pain Shortness of breath Smoker History of cardiovascular stress test Leg pain S/P arteriogram of extremity Essential hypertension COPD (chronic obstructive pulmonary disease) Incisional hernia without mention of obstruction or gangrene Impaired fasting glucose History of pelvic hematoma Duodenal ulcer Clostridium difficile colitis Closed fracture of fifth metatarsal bone of left foot Injury, spleen, with capsular tears Pseudocyst of pancreas Peptic ulcer disease SBO (small bowel obstruction) H/O spleen injury Asthma Hyperlipemia Alcohol abuse Home Medications ?Medication ?Instructions ?Recorded ?Last Taken ?Type carvedilol 25 mg tablet 25 mg PO BID HEART 05/28/19 09/15/24 History spironolactone 25 mg tablet 25 mg PO DAILY BLOOD PRESSURE 05/28/19 09/14/24 History alprazolam 0.5 mg tablet 0.5 mg PO TID ANXIETY 02/12/21 09/15/24 History acetaminophen 500 mg tablet 1,000 mg PO Q6H PRN PAIN 07/19/22 09/14/24 History pantoprazole 40 mg tablet,delayed 40 mg PO BID GERD 30 days #60 tabs 10/12/22 09/14/24 Rx release guaifenesin 1,200 mg tablet, 1,200 mg PO BID PRN MUCOUS 07/02/23 06/10/24 History extended release 12 hr (Mucinex) lisinopril 40 mg tablet 40 mg PO QHS BLOOD PRESSURE 07/14/23 09/14/24 History aspirin 81 mg tablet,delayed 81 mg PO BREAKFAST HEART HEALTH 07/19/23 09/14/24 Rx release #0 tabs gabapentin 600 mg tablet 600 mg PO 4X/DAY NERVE PAIN 11/06/23 09/14/24 History tramadol 50 mg tablet 50 mg PO 4X/DAY PRN PAIN 11/06/23 09/15/24 History albuterol sulfate 90 mcg/actuation 2 puff inhalation Q4H PRN 11/15/23 02/03/24 Rx aerosol inhaler (Ventolin HFA) shortness of breath or wheezing #18 grams fluticasone fur. 200 mcg-umeclid 1 inh inhalation DAILY ASTHMA #60 11/15/23 09/14/24 Rx 62.5 mcg-vilant 25 mcg ea inhalat.powder (Trelegy Ellipta) clopidogrel 75 mg tablet 75 mg PO DAILY BLOOD THINNER #90 11/21/23 09/15/24 Rx tabs multivitamin with minerals-folic 1 tab PO DAILY SUPPLEM 01/30/24 09/15/24 History acid 80 mcg chewable tablet (Centrum Adult 50 Plus) atorvastatin 80 mg tablet 80 mg PO QHS CHOLESTEROL #90 tabs 02/27/24 09/14/24 Rx miscellaneous medical supply #1 ea 06/19/24 Unknown Rx ipratropium 0.5 mg-albuterol 3 mg 3 ml inhalation Q4H PRN PRN SOB 09/01/24 09/15/24 Rx (2.5 mg base)/3 mL nebulization &/OR WHEEZING #180 mL soln Allergy/AdvReac Type Severity Reaction Status Date / Time amlodipine AdvReac Intermediate Nausea/Vom/ Verified 09/15/24 11:12 Diarrhea clonidine AdvReac Mild Nausea/Vom/ Verified 09/15/24 11:12 Diarrhea adhesive AdvReac Rash Verified 09/15/24 11:12 codeine AdvReac Nausea Verified 09/15/24 11:12 Family History Mother Heart disease Hypertension Diabetes Sister Hypertension Brother Hypertension Sister Hypertension Cervical cancer Brother Pancreatic cancer Surgical History History of appendectomy History of esophagogastroduodenoscopy (EGD) Hx of colonoscopy Hx of cervical spine surgery H/O: H/O colostomy History of hernia repair Social History household members: spouse housing: house Smoking Status: Current every day smoker tobacco type: cigarettes Electronic Cigarette Use: not used second hand exposure: Yes alcohol intake: current alcohol intake frequency: a few times a week substance use type: does not use caffeine: Yes what type of physical activity do you participate in: bicycling frequency: 1-2 times per week Review of Systems (Anesthesia) ROS Narrative System reviewed and no additional complaints, except as documented.
--- NOTE | 2024-09-17 11:30 | COLBX_PTH ---
PATIENT: BAHMAN MICHELE LOC: [facility] U#:[id number] AGE/SX: 69/F ROOM: [facility] RE09/15/[address]: Dr. Elena Moore DO : 1955 BED: 1 DIS: 09/18/2024 SPEC #: [id number] RECD: 09/18/24 07:39 STATUS: ARLENE AVILEZ #: [id number] JUSTA: 09/17/24 11:[address]: Alejandro Murillo DEPT: SURGICAL PATHOLOGY RECD BY: Winter Kenyon ENTERED: 09/18/24 12:04 SP TYPE: COLON BX OTHR DR: Dr. Kg Kennedy, DO Dr. Elena Moore, DO Dr. Nate Gray MD Tissues: A - Cecum, NOS B - COLON BIOPSY C - Sigmoid colon biopsy Procedures: Surgery Specimen Level IV Comments: @ Ordering doctor for SUIV edited from to @ gregorio FORDE at 09/18/24 1326 @ Submitting doctor edited from to @ gregorio FORDE at 09/18/24 1326 HEADER OPERATION: Colonoscopy, EGD PRE-OP DIAGNOSIS: Acute lower gastrointestinal bleeding, acute blood loss anemia TISSUE SUBMITTED: A- Cecal polyp, B- Splenic flexure ischemic colitis polyp, C- Sigmoid polyp biopsy MICROSCOPIC DIAGNOSIS A. Cecal polyp, biopsy: Fragments of tubular adenoma. B. Splenic flexure polyp ischemic colitis: Colonic mucosa with severe active colitis and ulceration. Focal early lamina propria fibrosis. See comment. C. Sigmoid polyp, biopsy: Hyperplastic colonic polyp. PW. 09/19/2024 COMMENT B. The histologic appearances of the splenic flexure polyp ischemic colitis biopsy is consistent with ischemic colitis as clinically suspected. MICROSCOPIC DESCRIPTION Slides are reviewed. GROSS DESCRIPTION A. Received in fixative is one container labeled with the patient's name and designated Cecal polyp. The specimen consists of multiple irregular fragments of light hadley soft tissue that in aggregate measure 2.0 x 0.5 x 0.1 cm. The specimen is totally submitted in one cassette. B. Received in fixative is one container labeled with the patient's name and designated Splenic flexure polyp ischemic colitis. The specimen consists of two irregular fragments of light hadley soft tissue that in aggregate measure 0.8 x 0.4 x 0.1 cm. The specimen is totally submitted in one cassette. C. Received in fixative is one container labeled with the patient's name and designated Sigmoid polyp biopsy. The specimen consists of one irregular fragment of light hadley soft tissue that measures 0.4 x 0.2 x 0.1 cm. The specimen is totally submitted in one cassette. SJ.mr 09/18/2024 TC:5 CPT:12768o9
--- NOTE | 2024-09-17 13:55 | OP.EGD_ITS ---
Patient Name: Linda Leija Procedure Date: 09/17/2024 1:11 PM Date of : 1955 Age: 69 Procedure: Upper GI endoscopy Indications: Abdominal pain in the left upper quadrant, Abdominal pain in the left lower quadrant, Melena, Recent gastrointestinal bleeding Providers: Alejandro Murillo DO Medicines: Monitored Anesthesia Care Patient Profile: This is a 69 year old female. Refer to note in patient chart for documentation of history and physical. Patient has symptoms of acute left upper quadrant abdominal pain and acute left lower quadrant abdominal pain. Complications: No immediate complications. Procedure: Pre-Anesthesia Assessment: - Prior to the procedure, a History and Physical was performed, and patient medications and allergies were reviewed. The patient is competent. The risks and benefits of the procedure and the sedation options and risks were discussed with the patient. All questions were answered and informed consent was obtained. Patient identification and proposed procedure were verified by the physician in the pre-procedure area. Mental Status Examination: alert and oriented. Airway Examination: normal oropharyngeal airway and neck mobility. Respiratory Examination: clear to auscultation. CV Examination: normal. Prophylactic Antibiotics: The patient does not require prophylactic antibiotics. Prior Anticoagulants: The patient has taken no anticoagulant or antiplatelet agents. ASA Grade Assessment: II - A patient with mild systemic disease. After reviewing the risks and benefits, the patient was deemed in satisfactory condition to undergo the procedure. The anesthesia plan was to use monitored anesthesia care (MAC). Immediately prior to administration of medications, the patient was re-assessed for adequacy to receive sedatives. The heart rate, respiratory rate, oxygen saturations, blood pressure, adequacy of pulmonary ventilation, and response to care were monitored throughout the procedure. The physical status of the patient was re-assessed after the procedure. After obtaining informed consent, the endoscope was passed under direct vision. Throughout the procedure, the patient's blood pressure, pulse, and oxygen saturations were monitored continuously. The pediatric colonoscope was introduced through the mouth, and advanced to the second part of duodenum. The upper GI endoscopy was accomplished without difficulty. The patient tolerated the procedure well. Scope In: 1:24:04 PM Scope Out: 1:26:47 PM Total Procedure Duration Time 0 hours 2 minutes 43 seconds Findings: No gross lesions were noted in the entire esophagus. A medium-sized hiatal hernia was present. No gross lesions were noted in the entire examined stomach. No gross lesions were noted in the first portion of the duodenum. Impression: - No gross lesions in the entire esophagus. - Medium-sized hiatal hernia. - No gross lesions in the entire stomach. - No gross lesions in the first portion of the duodenum. - No specimens collected. Recommendation: - Discharge patient to home. - Resume previous diet. - Continue present medications. Procedure Code(s): --- Professional --- 65931, Esophagogastroduodenoscopy, flexible, transoral; diagnostic, including collection of specimen(s) by brushing or washing, when performed (separate procedure) CPT copyright 2021 [employer]. All rights reserved. The codes documented in this report are preliminary and upon family practitioner review may be revised to meet current compliance requirements. Alejandro Murillo DO 09/17/2024 1:54:37 PM This report has been signed electronically. Number of Addenda: 0 Note Initiated On: 09/17/2024 1:11 PM
--- NOTE | 2024-09-17 13:55 | OP.CCLET_ITS ---
09/17/2024 Nate Gray [address] [place] [address] Re : Upper GI endoscopy procedure for Linda Leija Dear Dr. Gray This procedure was performed on Tuesday, September 17, 2024. My impressions and recommendations are as follows: Impressions : - No gross lesions in the entire esophagus. - Medium-sized hiatal hernia. - No gross lesions in the entire stomach. - No gross lesions in the first portion of the duodenum. - No specimens collected. Recommendations : - Discharge patient to home. - Resume previous diet. - Continue present medications. My findings are described in the full procedure note, which is enclosed. If I can be of further assistance, please feel free to contact me at . Sincerely, Alejandro Murillo, 09/17/2024 1:54:37 PM This report has been signed electronically.
--- NOTE | 2024-09-17 13:59 | OP.CCLET_ITS ---
09/17/2024 Nate Gray [address] [place] [address] Re : Colonoscopy procedure for Linda Leija Dear Dr. Gray This procedure was performed on Tuesday, September 17, 2024. My impressions and recommendations are as follows: Impressions : - Non-bleeding internal hemorrhoids. - Patent end-to-side colo-colonic anastomosis, characterized by healthy appearing mucosa. - One 5 mm polyp at the recto-sigmoid colon, removed with a jumbo cold forceps. Resected and retrieved. - One 9 mm polyp in the cecum, removed with a hot snare. Resected and retrieved. - Segmental severe inflammation was found at the splenic flexure secondary to ischemic colitis. Biopsied. - Diverticulosis in the entire examined colon. Recommendations : - Discharge patient to home. - Advance diet as tolerated. - Continue present medications. - Await pathology results. - Repeat colonoscopy in 3 years for surveillance. My findings are described in the full procedure note, which is enclosed. If I can be of further assistance, please feel free to contact me at . Sincerely, Alejandro Murillo, 09/17/2024 1:59:16 PM This report has been signed electronically.
--- NOTE | 2024-09-17 13:59 | OP.COLON_ITS ---
Patient Name: Linda Leija Procedure Date: 09/17/2024 1:26 PM Date of : 1955 Age: 69 Procedure: Colonoscopy Indications: Hematochezia, Gastrointestinal bleeding Providers: Alejandro Murillo DO Medicines: Monitored Anesthesia Care Patient Profile: This is a 69 year old female. Refer to note in patient chart for documentation of history and physical. Patient has symptoms of acute left upper quadrant abdominal pain and acute left lower quadrant abdominal pain. Refer to note in patient chart for documentation of history and physical. Last Colonoscopy: 6 months ago. Complications: No immediate complications. Procedure: Pre-Anesthesia Assessment: - Prior to the procedure, a History and Physical was performed, and patient medications and allergies were reviewed. The patient is competent. The risks and benefits of the procedure and the sedation options and risks were discussed with the patient. All questions were answered and informed consent was obtained. Patient identification and proposed procedure were verified by the physician in the pre-procedure area. Mental Status Examination: alert and oriented. Airway Examination: normal oropharyngeal airway and neck mobility. Respiratory Examination: clear to auscultation. CV Examination: normal. Prophylactic Antibiotics: The patient does not require prophylactic antibiotics. Prior Anticoagulants: The patient has taken no anticoagulant or antiplatelet agents. ASA Grade Assessment: II - A patient with mild systemic disease. After reviewing the risks and benefits, the patient was deemed in satisfactory condition to undergo the procedure. The anesthesia plan was to use monitored anesthesia care (MAC). Immediately prior to administration of medications, the patient was re-assessed for adequacy to receive sedatives. The heart rate, respiratory rate, oxygen saturations, blood pressure, adequacy of pulmonary ventilation, and response to care were monitored throughout the procedure. The physical status of the patient was re-assessed after the procedure. After I obtained informed consent, the scope was passed under direct vision. Throughout the procedure, the patient's blood pressure, pulse, and oxygen saturations were monitored continuously. The pediatric colonoscope was introduced through the anus and advanced to the terminal ileum. The colonoscopy was performed without difficulty. The patient tolerated the procedure well. The quality of the bowel preparation was adequate. The terminal ileum, ileocecal valve, appendiceal orifice, and rectum were photographed. Scope In: 1:30:00 PM Scope Withdrawal Time 0 hours 12 minutes 35 seconds Scope Out: 1:47:42 PM Total Procedure Duration Time 0 hours 17 minutes 42 seconds Findings: The perianal and digital rectal examinations were normal. Non-bleeding internal hemorrhoids were found during retroflexion. The hemorrhoids were Grade II (internal hemorrhoids that prolapse but reduce spontaneously). There was evidence of a prior end-to-side colo-colonic anastomosis in the rectum. This was patent and was characterized by healthy appearing mucosa. The anastomosis was traversed. A 5 mm polyp was found in the recto-sigmoid colon. The polyp was sessile. The polyp was removed with a jumbo cold forceps. Resection and retrieval were complete. Verification of patient identification for the specimen was done. Estimated blood loss was minimal. A 9 mm polyp was found in the cecum. The polyp was sessile. The polyp was removed with a hot snare. Resection and retrieval were complete. Verification of patient identification for the specimen was done. Estimated blood loss was minimal. Segmental severe inflammation characterized by erosions, erythema, friability, granularity and shallow ulcerations was found at the splenic flexure. Biopsies were taken with a cold forceps for histology. Verification of patient identification for the specimen was done. Estimated blood loss was minimal. Multiple small-mouthed diverticula were found in the entire colon. Impression: - Non-bleeding internal hemorrhoids. - Patent end-to-side colo-colonic anastomosis, characterized by healthy appearing mucosa. - One 5 mm polyp at the recto-sigmoid colon, removed with a jumbo cold forceps. Resected and retrieved. - One 9 mm polyp in the cecum, removed with a hot snare. Resected and retrieved. - Segmental severe inflammation was found at the splenic flexure secondary to ischemic colitis. Biopsied. - Diverticulosis in the entire examined colon. Recommendation: - Discharge patient to home. - Advance diet as tolerated. - Continue present medications. - Await pathology results. - Repeat colonoscopy in 3 years for surveillance. Procedure Code(s): --- Professional --- 56757, Colonoscopy, flexible; with removal of tumor(s), polyp(s), or other lesion(s) by snare technique 37995, 59, Colonoscopy, flexible; with biopsy, single or multiple CPT copyright 2021 [employer]. All rights reserved. The codes documented in this report are preliminary and upon bench assembler review may be revised to meet current compliance requirements. Alejandro Murillo DO 09/17/2024 1:59:16 PM This report has been signed electronically. Number of Addenda: 0 Note Initiated On: 09/17/2024 1:26 PM
--- NOTE | 2024-09-17 14:05 | PCM.POST.ANE ---
Anesthesia: Postop Eval I Current Vital Signs Temperature: 99.2 F Pulse Rate: 96 Blood Pressure: 100/56 Respiratory Rate: 18 Pulse Ox: 95 Oxygen Delivery Method: Room Air Assessment Airway patent: Yes Spontaneous unlabored respirations: Yes Mental status: Awake and Calm nausea: No Vomiting: No Anesthesia Complication: No Fluid Hydration Crystalloid volume administer (ml): 90 Total IV fluid infused: 90 Progress Note Anesthesia document: Postop Eval 1 completed: Yes
--- NOTE | 2024-09-17 14:16 | PCM.POSTANE2 ---
Anesthesia Postop Eval I Sum Postop Eval Completion status Anesthesia document: Postop Eval 1 completed: Yes Anesthesia Postop Eval I Summary Anesthesia Postop Eval I Summary: Anesthesia Postop Eval I: Assessment Summary Airway patent Yes 09/17/24 14:06 [email or web address] Spontaneous unlabored Yes 09/17/24 14:06 [email or web address] respirations Mental status Awake,Calm 09/17/24 14:06 [email or web address] nausea No 09/17/24 14:06 [email or web address] Vomiting No 09/17/24 14:06 [email or web address] Anesthesia Postop Eval I: Fluid Summary Crystalloid volume administer 90 09/17/24 14:06 [email or web address] (ml) Colloids volume administered ( ml) Blood Product volume administered (ml) Total IV fluid infused 90 09/17/24 14:06 [email or web address] Anesthesia Postop Eval I: Summary Notes Anesthesia Complication No 09/17/24 14:06 [email or web address] Anesthesia Complication Comment: Post-operative progress note Anesthesia: Postop Eval II Evaluation Mental status: Awake Pain Level: 0 nausea: No Vomiting: No
[2024-09-17] MEDS: Gabapentin 600 MG Tablet PO ×3 (14:49→22:58)
[2024-09-17] MEDS: Pantoprazole Sodium 40 MG Tablet PO ×2 (14:49→22:57)
--- NOTE | 2024-09-17 16:04 | PN.HOSP_ITS ---
Reason for Visit Reason for Visit: Bright red blood per rectum Subjective Subjective Colonoscopy went well. We discussed the findings of ischemic colitis on her colon. Patient states she tends not to be very well-hydrated when we discussed potential etiologies. We did also discuss that Dr. Murillo noted some pus coming out of one of the diverticulum so we will go ahead and start antibiotics with Augmentin tonight. This will be a total of a 10-day course per discussion with Dr. Murillo. Patient states she is not feeling great postprocedure just from the air and just in general is not feeling well so she would like to stay overnight and make sure she does okay through the evening and that seems appropriate given her complicated medical history. Objective Data Objective Data Vital Signs: Vital Signs Temp Pulse Resp BP Pulse Ox O2 Del Method O2 Flow Rate 98.4 F 101 H 18 92/51 L 94 Nasal Cannula 2 09/17/24 14:45 09/17/24 14:45 09/17/24 14:45 09/17/24 14:45 09/17/24 14:45 09/17/24 14:52 09/17/24 14:52 Oxygen Flow Rate (L/min) 2 Oxygen Delivery Method Nasal Cannula Weight: 76.2 kg Body Mass Index (BMI) 33.9 Intake & Output: Intake and Output for Last 24 Hours 09/15/24 09/16/24 09/17/24 23:59 23:59 23:59 Intake Total 20490 840 / 840 0 / 0 Balance 2049 / 2289 840 / 840 0 / 0 Lab / Micro Data 09/17/24 06:29 09/17/24 06:29 Labs: Laboratory Results - last 24 hr 09/16/24 18:35: Hgb 8.8 L, Hct 27.9 L 09/17/24 00:26: Hgb 10.0 L, Hct 32.5 L 09/17/24 06:29: WBC 11.4 H, RBC 3.61 L, Hgb 9.2 L, Hct 30.3 L, MCV 83.9, MCH 25.5 L, MCHC 30.4 L, RDW Std Deviation 55.2 H, RDW Coeff of Renea 18.3 H, Plt Count 458 H, MPV 9.3, Immature Gran % (Auto) 0.700, Neut % (Auto) 71.7 H, Lymph % (Auto) 13.5 L, [place] % (Auto) 12.0 H, Eos % (Auto) 1.7, Baso % (Auto) 0.4, A bsolute Neuts (auto) 8.2 H, Absolute Lymphs (auto) 1.53, Nucleated RBC % 0.5, S odium 135 L, Potassium 5.0, Chloride 102, Carbon Dioxide 29.0, Anion Gap 4 L, BUN 9, Creatinine 0.78, Estim Creat Clear Calc 60.54, Est GFR (MDRD) Af Amer 94, Est GFR (MDRD) Non-Af 77, BUN/Creatinine Ratio 11.5, Glucose 85, Calcium 9.1 Rhythm Strip Rhythm Strip: Sinus Rhythm Rate: 90 Ectopy: None Physical Exam Const alert, oriented x3, no apparent distress and well nourished; Negative for average body habitus or healthy appearing Constitutional Narrative: Obese, upper middle-aged, white female, lying in bed watching television, appears comfortable, not quite as perky as yesterday but does not appear toxic HEENT normocephalic, head/scalp atraumatic and hearing grossly normal bilaterally Resp normal respiratory effort, normal air movement, no retractions, no use of accessory muscles and clear to auscultation bilaterally Resp Narrative: Coarse breath sounds bilaterally, stable on her baseline 3 L Auscultation: Negative for rales, rhonchi or wheezes Cardio regular rate, regular rhythm, S1 normal heart sound, S2 normal heart sound, no murmurs, no rub, no gallops and no clicks GI normal to inspection, nondistended, normoactive bowel sounds and soft to palpation GI Narrative: Very minimal diffuse tenderness Extremity no clubbing, cyanosis or edema Extremity Narrative: 2+ pedal and radial pulses Neuro oriented x3 and moves all extremities Speech: speech normal Psych affect normal Assessment & Plan Assessment/Plan (1) Acute lower gastrointestinal bleeding: (2) ABLA (acute blood loss anemia): PLAN: Plan Lower GI bleed -Continue to hold aspirin Plavix and restart tomorrow -EGD was unremarkable -Colonoscopy showed nonbleeding internal hemorrhoids, patent end-to-end colonic colonic anastomosis with healthy appearing mucosa, one 5 mm polyp at the rectosigmoid colon that was removed, one 9 mm polyp in the cecum that was removed and segmental severe inflammation at the splenic flexure consistent with ischemic colitis that was biopsied. -Start regular diet -Hemoglobin is stable -Anticipate discharge tomorrow as long as patient is feeling well Acute blood loss anemia on chronic anemia -Will hold aspirin Plavix tonight and reinitiate tomorrow -Hemoglobin is stable and back to baseline with transfusion -Patient was given 2 units packed red blood cells on 09/15/2024 Peripheral vascular disease with recent revision of femoropopliteal bypass -Follows with Dr. Lopez -Revision with endarterectomy and patch of proximal graft done on 06/10/2024 -Case was discussed with vascular surgery on admission and he indicated safe to hold aspirin and Plavix -Plan is to restart aspirin first and then Plavix in a few days following -Continue home statin History of SBO with colectomy/history of large ventral hernia repair -Currently appears stable -No current signs of small bowel obstruction -Ongoing outpatient follow-up as previously recommended Chronic hypoxic respiratory failure secondary to COPD -At baseline is on 2 to 3 L nasal cannula -No respiratory symptoms other than baseline symptoms at presentation -Continue home inhalers -chest x-ray shows no acute findings -Continue to monitor clinically -Continue outpatient follow-up with pulmonary medicine Essential hypertension/hyperlipidemia -Restart home carvedilol -Will continue to hold lisinopril and Aldactone postprocedure -Restart as able -Continue home statin GERD -Continue home PPI Neuropathy/chronic pain -Continue home gabapentin Anxiety/depression -Continue home Xanax Obesity -BMI 33.9 -Complicates treatment, prognosis, outcomes DVT prophylaxis -SCD's Code Status -FULL Code Charges/Coding Visit Charges Inpatient E&M: 95806 Subs Hosp L2
[2024-09-17 16:27] LABS: Hematocrit 29.6 % (37-47); Hemoglobin 9.4 g/dL (12.0-15.0)
[2024-09-17] MEDS: Amox/Clavulanate 875 MG Tablet PO (17:19)
[2024-09-17] MEDS: Acetaminophen 325 MG Tablet 650 MG PO (17:20)
[2024-09-17] MEDS: Atorvastatin Calcium 80 MG Tablet PO (22:58)
[2024-09-17] MEDS: Nystatin Powder 15gm Bottle 1 APPLIC TOPICAL (22:58)
[2024-09-18 05:37] VITALS: BP 125/74; PULSE 95; RESP 18; TEMP 36.2; O2SAT 97
[2024-09-18 05:43] VITALS: BP 125/74; PULSE 95; RESP 20; TEMP 36.4; O2SAT 95
[2024-09-18 06:42] LABS: Hematocrit 28.8 % (37-47); Hemoglobin 8.8 g/dL (12.0-15.0); Mean Corp Hgb Conc 30.6 g/dL (32-36); Mean Platelet Vol. 9.3 fl (6.2-12.0); Platelet Count 412 K/mm3 (150-450); RBC Distribution Width CV 18.7 % (11.6-14.6); RBC Distribution Width SD 57.7 fl (35.1-43.9); Red Blood Count 3.39 M/mm3 (4.2-5.4); White Blood Count 10.3 K/mm3 (4.4-11.0)
[2024-09-18] MEDS: Budesonide Respules 0.5 MG/2 ML AMPUL.NEB. INHALATION (07:14)
[2024-09-18 07:15] VITALS: PULSE 104; RESP 24; O2SAT 95
[2024-09-18] MEDS: Ipratropium/Albuterol Sulfate 3 ML AMPUL.NEB INHALATION (07:15)
[2024-09-18 07:24] LABS: Anion Gap 6 (5-15); BUN 11 mg/dL (7-18); BUN/Creat Ratio 11.6 RATIO (10-20); Calcium,Total 8.7 mg/dL (8.5-10.1); Chloride 101 mmol/L (98-107); Creatinine, Serum 0.95 mg/dL (0.55-1.02); EST Glomerular Filtration Rate 62 mL/min (>60); Est Glom Filt Rate - Afr Amer 75 mL/min (>60); Estimated Creatinine Clearance 50.98 ml/min; Glucose 106 mg/dL (74-106); Potassium 4.6 mmol/L (3.5-5.1); Sodium Level 134 mmol/L (136-145)
[2024-09-18 08:16] VITALS: BP 112/66; PULSE 89; RESP 16; TEMP 36.6; O2SAT 93
[2024-09-18] MEDS: Carvedilol 25 MG Tablet PO (08:29)
[2024-09-18] MEDS: Amox/Clavulanate 875 MG Tablet PO (08:29)
[2024-09-18] MEDS: Pantoprazole Sodium 40 MG Tablet PO (08:32)
[2024-09-18] MEDS: ALPRAZolam 0.5 MG Tablet PO (08:34)
[2024-09-18] MEDS: Gabapentin 600 MG Tablet PO (08:39)
--- NOTE | 2024-09-18 09:33 | PCM.DC.SUM ---
Providers Date of Admission: 09/15/24 Primary Care Physician: Dr. Nate Gray MD Consultations 09/15/24 15:10 Consult: Gastroenterology Routine Consulting Provider: [facility] Reason for Consult: lower GI bleed EMERGENT Consult: No MD Notified: Yes Date Notified: 09/15/24 Time Notified: 15:10 Method of Notification: ED Physician Initiated Reason For Visit: LOWER GIB W/ ABLA Diagnosis Discharge Diagnosis (1) Acute lower gastrointestinal bleeding: Status: Acute Code(s): K92.2 - Gastrointestinal hemorrhage, unspecified (2) ABLA (acute blood loss anemia): Status: Acute Code(s): D62 - Acute posthemorrhagic anemia Plan Lower GI bleed -Aspirin and Plavix are on hold -Patient with colonoscopy in February having no overt diverticulosis or source of bleeding -Hemoglobin 7 on admit and baseline appears to be between 8-9 and half -Received 2 units packed red blood cells and hemoglobin has stabilized -Will monitor every 6 hours -Bright red blood per rectum has seemed to resolved -Highly suspect diverticular bleed -Colon prep in progress and plan for colonoscopy tomorrow -Depending on findings and stability patient may be able to undergo discharge tomorrow Acute blood loss anemia on chronic anemia -Stabilized after 2 units packed red blood cells -No ongoing bleeding at this time -Continue to hold aspirin and Plavix -Plan per above Peripheral vascular disease with recent revision of femoropopliteal bypass -Follows with Dr. Lopez -Revision with endarterectomy and patch of proximal graft done on 06/10/2024 -Case was discussed with vascular surgery on admission and he indicated safe to hold aspirin and Plavix -Plan is to restart aspirin first and then Plavix in a few days following -Continue home statin History of SBO with colectomy/history of large ventral hernia repair -Currently appears stable -No current signs of small bowel obstruction -Ongoing outpatient follow-up as previously recommended Chronic hypoxic respiratory failure secondary to COPD -At baseline is on 2 to 3 L nasal cannula -No respiratory symptoms other than baseline symptoms at presentation -Continue home inhalers -chest x-ray shows no acute findings -Continue to monitor clinically -Continue outpatient follow-up with pulmonary medicine Essential hypertension/hyperlipidemia -Restart home carvedilol -Will continue to hold lisinopril and Aldactone and monitor blood pressures -Restart as able -Continue home statin GERD -Continue home PPI Neuropathy/chronic pain -Continue home gabapentin -Continue home gabapentin Anxiety/depression -Continue home Xanax Obesity -BMI 33.9 -Complicates treatment, prognosis, outcomes DVT prophylaxis -SCD's Code Status -FULL Code Medications at Discharge Home Medications carvedilol 25 mg tablet 25 mg PO BID HEART 05/28/19 spironolactone 25 mg tablet 25 mg PO DAILY BLOOD PRESSURE 05/28/19 alprazolam 0.5 mg tablet 0.5 mg PO TID ANXIETY 02/12/21 acetaminophen 500 mg tablet 1,000 mg PO Q6H PRN PAIN 07/19/22 pantoprazole 40 mg tablet,delayed release 40 mg PO BID GERD 30 days #60 tabs 10/12/22 guaifenesin 1,200 mg tablet, extended release 12 hr (Mucinex) 1,200 mg PO BID PRN MUCOUS 07/02/23 lisinopril 40 mg tablet 40 mg PO QHS BLOOD PRESSURE 07/14/23 aspirin 81 mg tablet,delayed release 81 mg PO BREAKFAST HEART HEALTH #0 tabs 07/19/23 gabapentin 600 mg tablet 600 mg PO 4X/DAY NERVE PAIN 11/06/23 tramadol 50 mg tablet 50 mg PO 4X/DAY PRN PAIN 11/06/23 albuterol sulfate 90 mcg/actuation aerosol inhaler (Ventolin HFA) 2 puff inhalation Q4H PRN shortness of breath or wheezing #18 grams 11/15/23 fluticasone fur. 200 mcg-umeclid 62.5 mcg-vilant 25 mcg inhalat.powder (Trelegy Ellipta) 1 inh inhalation DAILY ASTHMA #60 ea 11/15/23 clopidogrel 75 mg tablet 75 mg PO DAILY BLOOD THINNER #90 tabs 11/21/23 multivitamin with minerals-folic acid 80 mcg chewable tablet (Centrum Adult 50 Plus) 1 tab PO DAILY SUPPLEM 01/30/24 atorvastatin 80 mg tablet 80 mg PO QHS CHOLESTEROL #90 tabs 02/27/24 miscellaneous medical supply #1 ea 06/19/24 ipratropium 0.5 mg-albuterol 3 mg (2.5 mg base)/3 mL nebulization soln 3 ml inhalation Q4H PRN PRN SOB &/OR WHEEZING #180 mL 09/01/24 amoxicillin 875 mg-potassium clavulanate 125 mg tablet 1 tab PO BIDCM #18 tabs 09/18/24 Hospital Course Procedures Blood transfusion (2 u PRBC), Colonoscopy and EGD Summary of Care Provided Minutes Spent on Discharge: 39 Hospital Course: Patient is a 69-year-old female with a complicated past medical history on aspirin and Plavix who presented to the emergency department at [facility] on 09/15/2024 with a chief complaint of mild left lower quadrant pain and bright red blood per rectum. The pain began about 24 hours prior to presentation with 1 small stool containing bright red blood however on the morning of admission she indicated she had 4 bright red bloody bowel movements and therefore came in for further evaluation. She does have a history of colectomy and a large ventral hernia repair with multiple small bowel obstructions. Most recently she was admitted in February with a small bowel obstruction. She did have concerns for GI bleed at that time as well and EGD was performed and found to be unremarkable and her colonoscopy was performed and showed only a small polyp that was removed with hot snare. Hemoglobin stabilized without any intervention and she was discharged home. Does not appear she followed up for other capsule endoscopy. She had notably been on triple therapy at that time and now is only on dual antiplatelet therapy. Vital signs on presentation showed a temperature of 97.0, heart rate 96, respiratory 24, blood pressure was 148/71 and pulse ox was 93% on 3 L nasal cannula which is her baseline oxygen requirement. CBC showed anemia with hemoglobin of 7 and her previous hemoglobin in mid August was 9.8. This was normocytic at this time but previously has been microcytic. Platelet count slightly elevated at 545. Coags were normal. Chemistry panel was unremarkable. CT of the abdomen pelvis showed had infiltration of liver, small gallstones, extensive atherosclerotic vascular disease, prior anterior abdominal wall hernia repair with mesh and stable anastomosis of the distal ileum into the colon as well as colorectal anastomosis. She was given 2 units of packed red blood cells and admitted to the medical floor with consultation to gastroenterology. She was prepped for colonoscopy and taken for EGD and colon on 09/17/2024. EGD was completely unremarkable. Colonoscopy showed nonbleeding internal hemorrhoids grade 2, healthy appearing end to end colocolonic anastomosis in, a 5 mm polyp in the rectosigmoid colon that was removed, 9 mm polyp in the cecum which was removed, and segmental severe inflammation characterized by erosions and erythema as well as friability, granularity and shallow ulcerations at the splenic flexure consistent with ischemic colitis and multiple small mouth diverticuli in the entire colon with 1 identified to have pus draining from the orifice. She was returned to the medical floor and started on a diet which she tolerated well. I discussed the case with . Friend she indicates she is stable to go back on her Plavix and aspirin. He would like her to be treated with Augmentin for total of 10 days. This was started and she had 2 doses prior to discharge and was sent with a prescription for another 9 days of treatment. She has follow-up scheduled with his office upcoming as well as an upcoming appoint with her primary care physician. All of her bleeding ceased within about 12 hours of admission and hemoglobin at the time of discharge was stable when compared to her baseline. Patient was discharged home in stable condition on 09/18/2024. Discharge diagnoses: Lower GI bleed secondary to ischemic colitis Acute on chronic blood loss anemia Peripheral vascular disease with recent revision of femoral-popliteal bypass History of small bowel obstruction with colectomy History of large ventral hernia repair Chronic hypoxic respiratory failure secondary to COPD Essential hypertension Hyperlipidemia GERD Neuropathy Chronic pain Anxiety Depression Obesity Physical Exam Const alert, oriented x3, no apparent distress, no limitations and well nourished; Negative for average body habitus or healthy appearing Constitutional Narrative: Obese, upper middle-aged, white female, sitting up up in bed, appears comfortable, nontoxic, appears much better than yesterday, nursing at bedside General Appearance: cooperative, comfortable, well kempt and well developed Exam Limitations: no limitations Nutritional Appearance: obese HEENT normocephalic, head/scalp atraumatic, hearing grossly normal bilaterally and moist oral mucous membranes Eyes PERRL Eyes Narrative: No scleral icterus Neck no lymphadenopathy and supple Neck Narrative: Trachea midline Resp normal respiratory effort, normal air movement, no retractions, no use of accessory muscles and clear to auscultation bilaterally Resp Narrative: Coarse breath sounds bilaterally, stable on her baseline 2-3 L Auscultation: Negative for rales, rhonchi or wheezes Cardio regular rate, regular rhythm, S1 normal heart sound, S2 normal heart sound, no murmurs, no rub, no gallops and no clicks GI normal to inspection, nondistended, normoactive bowel sounds, soft to palpation and non-tender GI Narrative: Very minimal diffuse tenderness Extremity no clubbing, cyanosis or edema Extremity Narrative: 2+ pedal and radial pulses Neuro oriented x3, moves all extremities and no focal motor deficits Speech: speech normal Psych mental status grossly normal and affect normal Psych Narrative: Very pleasant, interacts appropriately Weight / BMI Weight Weight: 76.2 kg Body Mass Index (BMI) 33.9 ABG / Lab / Microbiology Data 09/18/24 06:02 09/18/24 06:02 Laboratory: Laboratory Results - last 24 hr 09/17/24 14:20: Hgb 9.4 L, Hct 29.6 L 09/18/24 06:02: WBC 10.3, RBC 3.39 L, Hgb 8.8 L, Hct 28.8 L, MCV 85.0, MCH 26.0 L, MCHC 30.6 L, RDW Std Deviation 57.7 H, RDW Coeff of Renea 18.7 H, Plt Count 412, MPV 9.3, Sodium 134 L, Potassium 4.6, Chloride 101, Carbon Dioxide 28.0, Anion Gap 6, BUN 11, Creatinine 0.95, Estim Creat Clear Calc 50.98, Est GFR (MDRD) Af Amer 75, Est GFR (MDRD) Non-Af 62, BUN/Creatinine Ratio 11.6, Glucose 106, Calcium 8.7 D/C Instructions Discharge Diet: Low fat / Low cholesterol Discharge Activity: Return to Normal Activity DC O2, CPAP, BIPAP Needs Additional Home O2 Discharge instructions: No DC home with Oxygen: Yes Home O2 MD Review: I have reviewed the oxygen testing, and the patient qualifies for home oxygen equipment and portability. The patient is mobile in the home and the community. Meaningful Use Info Meaningful Use Meaningful Use Diagnoses (Choose all that apply): None applicable Ischemic Stroke Statin Dosing Therapy Reference: STATIN DOSE THERAPY REFERENCE: * Patients > 75 years receive moderate or high dose statin therapy. * Patients 75 years or YOUNGER should receive HIGH intensity statin dose unless contraindicated. You will be required to document reason for non-treatment if statin daily dose does not meet guidelines. HIGH DOSE STATIN THERAPY DAILY Atorvastatin > than or = to 40 mg Rosuvastatin > than or = to 20 mg Amlodipine + Atorvastatin > than or = to 2.5/40 mg Ezetimibe + Simvastatin 10/80 mg Simvastatin 80mg Discharge Plan Admission Admit Date/Time: 09/15/24 13:39 Primary Reason for Your Visit: Bright red blood per rectum Attending Provider: Elena Moore Primary Care Provider: Nate Gray Consulting Providers: Kg Kennedy Instructions Additional Instructions / Restrictions: 1. Please complete antibiotic course as directed 2. Okay to restart aspirin and Plavix today 3. Please follow-up with Dr. Murillo as directed Discharge Orders/Prescriptions Prescriptions: New amoxicillin-pot clavulanate 875-125 mg Tablet 1 tab PO BIDCM Qty: 18 0RF Continued Trelegy Ellipta 200-62.5-25 mcg blister with device 1 inh inhalation DAILY Qty: 60 11RF albuterol sulfate [Ventolin HFA] 90 mcg/actuation HFA aerosol inhaler 2 puff inhalation Q4H PRN (Reason: shortness of breath or wheezing) Qty: 18 6RF (DME) miscellaneous medical supply Misc See Rx Instructions .Route Qty: 1 0RF Rx Instructions: Shower/Bath Chair/stool carvedilol 25 MG tablet 25 mg PO BID spironolactone 25 MG tablet 25 mg PO DAILY alprazolam 0.5 mg tablet 0.5 mg PO TID acetaminophen 500 mg Tablet 1,000 mg PO Q6H PRN (Reason: PAIN ) pantoprazole 40 mg Tablet,Delayed Release (Dr/Ec) 40 mg PO BID 30 Days Qty: 60 0RF lisinopril 40 mg tablet 40 mg PO QHS aspirin 81 mg Tablet,Delayed Release (Dr/Ec) 81 mg PO BREAKFAST Qty: 0 0RF guaifenesin [Mucinex] 1,200 mg tablet extended release 12hr 1,200 mg PO BID PRN (Reason: MUCOUS) gabapentin 600 mg tablet 600 mg PO 4X/DAY tramadol 50 mg tablet 50 mg PO 4X/DAY PRN (Reason: PAIN ) Centrum Adult 50 Plus 80 mcg tablet,chewable 1 tab PO DAILY clopidogrel 75 mg tablet 75 mg PO DAILY Qty: 90 3RF atorvastatin 80 mg tablet 80 mg PO QHS Qty: 90 3RF ipratropium-albuterol 0.5 mg-3 mg(2.5 mg base)/3 mL solution for nebulization 3 ml inhalation Q4H PRN PRN (Reason: SOB &/OR WHEEZING) Qty: 180 6RF Referrals / Follow Up: Silvia Doty SOFT MUD MOLDER, SOFT MUD MOLDER-C [Non-Staff] - 09/19/24 9:00 am Osiris Dickey PA [Med Staff - [facility]] - 09/24/24 10:00 am Disposition Disposition (needs filled in before D/C Order can be placed): Home, Self Care Charges/Coding Visit Charges Inpatient E&M: 60581 Disch Hosp >30min
--- NOTE | 2024-09-18 11:27 | CASEMGMT ---
Patient has order for discharge. Script for shower chair received. RN CM in to discuss needs at discharge. Script provided to patient. Patient denies additional needs or help at discharge. Patient had no further questions or concerns.
== END 2024-09-18 11:57 | disposition home or self-care (01) | DRG 394 ==
LOC: ED 13:30 → PCU 14:22
PROVIDERS: Internal Medicine Gastroenterology; Admitting Provider Hospitalist; Emergency Provider Emergency Medicine; PCP Internal Medicine; Visit Provider Internal Medicine
PROC: 0DJD8ZZ Inspection of Lower Intestinal Tract, Via Natural or Artificial Opening Endoscopic (ICD-10-PCS; CPT 45378; principal; 2024-09-17 11:25)
DX: K55.9 Vascular disorder of intestine, unspecified (principal); D62 Acute posthemorrhagic anemia; J96.11 Chronic respiratory failure with hypoxia; J44.9 Chronic obstructive pulmonary disease, unspecified; I10 Essential (primary) hypertension; F32.A Depression, unspecified; I73.9 Peripheral vascular disease, unspecified; Z68.37 Body mass index [BMI] 37.0-37.9, adult; K57.30 Diverticulosis of large intestine without perforation or abscess without bleeding; K21.9 Gastro-esophageal reflux disease without esophagitis; F17.210 Nicotine dependence, cigarettes, uncomplicated; F41.9 Anxiety disorder, unspecified; G62.9 Polyneuropathy, unspecified; K63.5 Polyp of colon; K64.1 Second degree hemorrhoids; K44.9 Diaphragmatic hernia without obstruction or gangrene; E66.811 Obesity, class 1; Z79.82 Long term (current) use of aspirin; Z80.0 Family history of malignant neoplasm of digestive organs; Z79.51 Long term (current) use of inhaled steroids; Z79.02 Long term (current) use of antithrombotics/antiplatelets; Z79.899 Other long term (current) drug therapy
CPT/HCPCS: 36415; 71046; 74177; 80048; 80053; 83605; 84484; 85014; 85018; 85025; 85027; 85610; 85730; 86850; 86900; 86901; 86920; 86922; 88305; 93005; 94640; 94668; 99283; 99406; J7040; P9016; Q9967; A4216; J2405

== ENCOUNTER → 2024-10-03 | Outpatient (CLI) | payer MEDICARE, SELFPAY | END | disposition home or self-care (01) | LOC: PSN 12:45 | PROVIDERS: PCP Internal Medicine; Referring Provider Nurse Practitioner Acute Care; Visit Provider Nurse Practitioner Acute Care | DX: J44.9 Chronic obstructive pulmonary disease, unspecified (principal) | CPT/HCPCS: 94060; 94726; 94729 ==

== ENCOUNTER → 2024-10-10 | Outpatient (CLI) | payer MEDICARE, SELFPAY ==
[2024-10-10 12:54] VITALS: PULSE 100; PULSE 104; PULSE 108; PULSE 110; PULSE 111; PULSE 112; PULSE 113; O2SAT 86; O2SAT 92; O2SAT 93; O2SAT 96; O2SAT 99
--- NOTE | 2024-10-10 12:56 | CPS ---
PATIENT ARRIVED FOR TESTING ON ROOM AIR. SPO2 WAS 86% AT THIS TIME THEREFORE WALK TEST BEGAN WITH PATIENT ON 2LPM. SHE REMAINED ON 2LPM FOR DURATION OF TESTING. SHE TOOK 2 EXTENDED REST BREAKS FOR RIGHT KNEE PAIN AND BACK PAIN, WHICH LIMITED HER ABILITY TO WALK CONTINUOUSLY FOR AN EXTENDED PERIOD OF TIME. SHE AMBULATED 452FT. SHE DOES HAVE OXYGEN AT HOME THROUGH [facility], SHE FORGOT HER TANK WHEN SHE LEFT FOR HER APPT TODAY.
--- NOTE | 2024-10-14 13:25 | PCM.PSN.6M ---
PSN 6 Minute Walk Test 6 Minute Walk Test 6 Minute Walk Test: 6 Minute Walk Test PSN:6-Minute Walk Test Start: 10/10/24 12:53 Freq: Status: Active Protocol: [id number].6MINW Document 10/10/24 12:54 [facility] (Rec: 10/10/24 13:00 [facility] [id number]) 6 Minute Walk Test Date Performed 10/10/24 Time Performed 12:30 Height 4 ft 11.5 in Weight: 165 lb Weight in Pounds 165.[address]: Mary Zimmerman [employer]ICAL DISPENSER Assistive device used: None Pre-test Oxygen Delivery Method Room Air Pulse Ox (%) 86 Pulse Rate (60-100 beats/min) 104 H Dyspnea Guerrero Scale (0-10) 0 1st minute Oxygen Flow Rate (L/min) (L/min) 2 Oxygen Delivery Method Nasal Cannula Pulse Ox (%) 99 Pulse Rate (60-100 beats/min) 108 H Dyspnea Guerrero Scale (0-10) 0 Number of Rests Taken 0 2nd minute Oxygen Flow Rate (L/min) (L/min) 2 Oxygen Delivery Method Nasal Cannula Pulse Ox (%) 92 Pulse Rate (60-100 beats/min) 110 H Dyspnea Guerrero Scale (0-10) 0 Number of Rests Taken 1 3rd minute Oxygen Flow Rate (L/min) (L/min) 2 Oxygen Delivery Method Nasal Cannula Pulse Ox (%) 93 Pulse Rate (60-100 beats/min) 108 H Dyspnea Guerrero Scale (0-10) 0 Number of Rests Taken 0 4th minute Oxygen Flow Rate (L/min) (L/min) 2 Oxygen Delivery Method Nasal Cannula Pulse Ox (%) 92 Pulse Rate (60-100 beats/min) 113 H Dyspnea Guerrero Scale (0-10) 0 Number of Rests Taken 1 5th minute Oxygen Flow Rate (L/min) (L/min) 2 Oxygen Delivery Method Nasal Cannula Pulse Ox (%) 93 Pulse Rate (60-100 beats/min) 112 H Dyspnea Guerrero Scale (0-10) 0 Number of Rests Taken 0 6th minute Oxygen Flow Rate (L/min) (L/min) 2 Oxygen Delivery Method Nasal Cannula Pulse Ox (%) 92 Pulse Rate (60-100 beats/min) 111 H Dyspnea Guerrero Scale (0-10) 0 Number of Rests Taken 0 Post-test Oxygen Flow Rate (L/min) (L/min) 2 Oxygen Delivery Method Nasal Cannula Pulse Ox (%) 96 Pulse Rate (60-100 beats/min) 100 Dyspnea Guerrero Scale (0-10) 0 Full Laps Walked 7 Partial Lap, Number of Tiles Walked 39 Total Distance Walked (ft) 452 10/10/24 12:56 Cardiopulmonary Services by Delia Vallejo PATIENT ARRIVED FOR TESTING ON ROOM AIR. SPO2 WAS 86% AT THIS TIME THEREFORE WALK TEST BEGAN WITH PATIENT ON 2LPM. SHE REMAINED ON 2LPM FOR DURATION OF TESTING. SHE TOOK 2 EXTENDED REST BREAKS FOR RIGHT KNEE PAIN AND BACK PAIN, WHICH LIMITED HER ABILITY TO WALK CONTINUOUSLY FOR AN EXTENDED PERIOD OF TIME. SHE AMBULATED 452FT. SHE DOES HAVE OXYGEN AT HOME THROUGH [employer], SHE FORGOT HER TANK WHEN SHE LEFT FOR HER APPT TODAY. Initialized on 10/10/24 12:56 - END OF NOTE Interpretation Interpretation: The patient ambulated 452 feet over the course of 6 minutes beginning on room air without assistive devices. Pretesting oxygen saturation was noted to be 86% on room air. Therefore, 2 L/min of supplemental oxygen was applied, prior to the initiation of testing. With ambulation, the abraham oxygen saturation was 92%. Recommendations Recommendations: 2 L/min of supplemental oxygen should be utilized at all times.
== END | disposition home or self-care (01) ==
LOC: PSN 12:22
PROVIDERS: PCP Internal Medicine; Referring Provider Nurse Practitioner Acute Care; Visit Provider Nurse Practitioner Acute Care
DX: J44.9 Chronic obstructive pulmonary disease, unspecified (principal)
CPT/HCPCS: 94618

== ENCOUNTER → 2024-12-11 | Outpatient (CLI) | payer MEDICARE, SELFPAY ==
--- NOTE | 2024-12-11 08:14 | MRI_ITS ---
PROCEDURE: MRI lumbar spine without IV contrast REASON FOR EXAM: Low back pain TECHNIQUE: Multisequence multiplanar MR images of the lumbar spine were obtained without the administration of intravenous contrast. COMPARISON: 02/09/2023 FINDINGS: Vertebral body heights are within normal limits. Negative for fracture or marrow replacement. No significant malalignment. Probable exophytic left renal, unchanged from prior. Conus medullaris is intact and terminates at L1. Mild/moderate paraspinal muscle atrophy. L1-2: Minimal posterior disc bulge. No significant spinal stenosis. Mild bilateral foraminal narrowing. L2-3: Small right extraforaminal disc protrusion. Minimal bilateral facet arthrosis. No significant spinal stenosis or foraminal narrowing. L3-4: No focal disc abnormality. Mild bilateral facet arthrosis and ligamentum flavum hypertrophy. No significant spinal stenosis. Minimal bilateral foraminal narrowing. L4-5: No focal disc abnormality. Mild bilateral facet arthrosis and ligamentum flavum hypertrophy. No significant spinal stenosis. Minimal left foraminal narrowing. L5-S1: No focal disc abnormality. Mild bilateral facet arthrosis and ligamentum flavum hypertrophy. No significant spinal stenosis or foraminal narrowing. MRI/Spine Lumbar (Routine) IMPRESSION: No significant spinal stenosis. Minimal multilevel foraminal narrowing as abov e. One or more dose reduction techniques were used (e.g., Automated exposure contr ol, adjustment of the mA and/or kV according to patient size, use of iterative reconstruction technique). Reading Location: [facility]
== END | disposition home or self-care (01) ==
LOC: MRI 08:06
PROVIDERS: PCP Internal Medicine; Referring Provider Anesthesiology Pain Medicine; Visit Provider Anesthesiology Pain Medicine
DX: M54.16 Radiculopathy, lumbar region (principal)
CPT/HCPCS: 72148

== ENCOUNTER → 2024-12-18 | Outpatient (CLI) | payer MEDICARE, SELFPAY ==
--- NOTE | 2024-12-18 12:58 | ART_ITS ---
Reason For Study Reason For Study: S/P Revision Lt Fem-Pop bypass, Rt Fem endarectomy, LY stent Procedure A bilateral lower extremity continuous wave Doppler with analog waveform analysis and ankle brachial indexes. Left Segmental Pressures Left brachial= 161mmHg. Left posterior tibial artery = 57mmHg. Left dorsalis pedis artery = 15mmHg. The left dorsalis pedis waveforms are monophasic. The left posterior tibial artery waveforms are monophasic. Right Segmental Pressures Right brachial= 150mmHg. Right posterior tibial artery = 103mmHg. Right dorsalis pedis artery = 89mmHg. Right digit = 71 mmHg. The right dorsalis pedis waveforms are biphasic. The right posterior tibial artery waveforms are biphasic. Indices The right ankle brachial index by the dorsalis pedis is 0.55. The right ankle brachial index by the posterior tibial artery is 0.64. The right digital-brachial index is 0.44. The left ankle brachial index by the dorsalis pedis is 0.09. The left ankle brachial index by the posterior tibial artery is 0.35. . Preliminary report given to Tata ARAGON. VL/Ankle Brachial Index Interpretation Summary Right SHAKIR 0.64, moderate arterial insufficiency. Doppler/PVR waveforms of the r ight ankle moderately diminished at rest. Left SHAKIR 0.35, severe arterial insufficiency. Doppler/PVR waveforms of the left ankle severely diminished at rest. Ordering Physician: Ella Rosales Referring Physician: Nate Gray M.D. Performed By: Gris Jung RVT
--- NOTE | 2024-12-18 12:58 | ADU_ITS ---
Reason For Study Reason For Study: S/P Revision Lt Fem-Pop bypass, Rt Fem endarectomy, LY stent Right Velocities Left Velocities Int. Iliac Artery, prox. = 110.8 cm./sec. Ext Iliac Artery, dist = 80.7 cm./sec. Common Femoral Artery, prox = 296.7 cm./sec. Common Femoral Artery, mid = 108.9 cm./sec. Common Femoral Artery, mid = 268.2 cm./sec. SFA-Pop Bypass graft is Occluded. Common Femoral Artery, dist = 242.9 cm./sec. Profunda artery, Retrograde flow. Prox SFA is occluded. Branch feeding mid/dist SFA. Donald prox, flow supplied by branch. Supf Femoral Artery, mid = 50.4 cm./sec. Popliteal Artery, proximal, = 27.7 cm./sec. Supf Femoral Artery, dist. = 42.5 cm./sec. Popliteal Artery, mid = 31.2 cm./sec. Profunda Femoral Artery = 207.5 cm./sec. Popliteal Artery, distal = 43.3 cm./sec. Popliteal Artery, mid = 21.1 cm./sec. Post. Tibial Artery, prox = 19.2 cm./sec. Post. Tibial Artery, prox = 26.6 cm./sec. Post Tibial Artery, mid = 18.1 cm./sec. Post. Tibial Artery, mid = 73.8 cm./sec. Post Tibial Artery, dist. = 21.1 cm./sec. Post. Tibial Artery, dist = 23.2 cm./sec. Peroneal Artery, prox = 0 cm./sec. Peroneal Artery, prox = 0 cm./sec. Peroneal Artery, mid = 12.4 cm./sec. Peroneal Artery, mid = 24.6 cm./sec. Peroneal Artery,dist. = 7.7 cm./sec. Peroneal Artery,dist = 10.4 cm./sec. Ant.Tibial Artery, prox = 10.3 cm./sec. Ant. Tibial Artery, prox = 28.9 cm./sec. Ant Tibial Artery, mid = 7.7 cm./sec. Ant. Tibial Artery, mid = 23 cm./sec. Ant. Tibial Artery, distal = 5.2 cm./sec. Ant. Tibial Artery, dist = 12.4 cm./sec. Large nonvascularized structure noted in the right popliteal fossa. Procedure Preliminary report given to Tata ARAGON. Exam performed in department. VL/US Art Duplex Bilat Lower Ext Interpretation Summary Right common femoral artery patent with elevated velocities, 50-75% stenosis. Right superficial femoral artery occluded proximal with distal reconstitution. Left femoral-popliteal bypass occluded. Left superficial femoral and profunda femoral arteries occluded with distal rec onstitution Ordering Physician: Ella Rosales Referring Physician: Nate Gray M.D. Performed By: Gris Jung RVT
== END | disposition home or self-care (01) ==
LOC: CVS 12:58
PROVIDERS: PCP Internal Medicine; Referring Provider Physician Assistant; Visit Provider Physician Assistant
DX: Z48.812 Encounter for surgical aftercare following surgery on the circulatory system (principal)
CPT/HCPCS: 93922; 93925

== ENCOUNTER → 2025-01-15 | Outpatient (CLI) | payer MEDICARE, MEDICAID, SELFPAY ==
--- NOTE | 2025-01-15 12:31 | CT_ITS ---
PROCEDURE: LOW DOSE CT LUNG SCREENING 01/15/2025 REASON FOR EXAM: SMOKER TECHNIQUE: Low Dose CT Lung screening without contrast. Coronal and Sagittal reconstruction series were provided. One or more dose reduction techniques were used (e.g., Automated exposure control, adjustment of the mA and/or kV according to patient size, use of iterative reconstruction technique). REFERENCE LINK: [facility] RAD[facility] DOSE SUMMARY: CTDlvol: 3.02 mGy DLP: 94 mGycm COMPARISON: None. FINDINGS: PULMONARY NODULES: (Only nodules >3mm are reported) Nodules described below are on series unless otherwise specified. Pulmonary Nodules: 3 mm nodule seen within the right upper lobe (image 41/224). Confluent airspace opacity seen within the right lower lobe measuring up to 3 by 2.8 cm. Similar appearing opacities are present within the right middle lobe anteriorly (image 166/224). Subpleural infiltrates seen within the right lower lobe near the medial basal segment (image 147/tissue for). Subpleural ground-glass opacity seen within the left upper lobe (image 24/224). There are linear streaky changes at the left lung base (image 177/224). Confluent airspace opacity seen at the left lung measuring up to 2.2 cm best seen on image 211/311 Hardware:None. Lymph Nodes:Shotty lymph nodes within the mediastinum, nonspecific. Heart and Vasculature: Coronary Artery Calcifications: Dense atheromatous disease calcification seen within the thoracic aorta and coronary arteries. Lungs and Airways: Right apical scarring is present (image 118/272) Pleura:No pleural effusion. Upper Abdomen:Surgical clips seen within the left upper abdomen, incompletely characterized. Correlate clinically. Bones:Multilevel degenerative changes present. CT/Low Dose CT Lung Screening IMPRESSION: Airspace opacities as described above. Recommend follow-up PET-CT imaging for further evaluation. Alternatively, noncontrast CT may be performed within 3 months. 94 Lung-RADS Category: 4A Reading Location: [id number]
== END | disposition home or self-care (01) ==
LOC: CT 12:30
PROVIDERS: PCP Internal Medicine; Referring Provider Nurse Practitioner Acute Care; Visit Provider Nurse Practitioner Acute Care
DX: Z12.2 Encounter for screening for malignant neoplasm of respiratory organs (principal); F17.210 Nicotine dependence, cigarettes, uncomplicated
CPT/HCPCS: 71271

== ENCOUNTER 2025-01-24 14:54 | Emergency (ER) | payer MEDICARE, SELFPAY ==
[2025-01-24 14:55] VITALS: BP 114/59; PULSE 103; RESP 18; TEMP 36.4; O2SAT 100
[2025-01-24 15:01] VITALS: BMI 34.8
--- NOTE | 2025-01-24 15:14 | CT_ITS ---
PROCEDURE: CTA ABD W/RUNOFF W/WO CONTRAST 01/24/2025 REASON FOR EXAM: LEFT FOOT PAIN AND KNOWN PAD TECHNIQUE: CTA imaging of the abdomen, pelvis, and lower extremities with intravenous contrast. Coronal and Sagittal reconstruction series were provided. 3D, 3D post processing, 3D reconstructions, Maximum intensity projection (MIPs) Volume rendering and Shaded surface rendering was provided. CONTRAST: Not provided VOLUME: Not provided mL Not Provided Gauge IV One or more dose reduction techniques were used (e.g., Automated exposure control, adjustment of the mA and/or kV according to patient size, use of iterative reconstruction technique). RADIATION DOSE SUMMARY: CTDlvol: 24 mGy DLP: 1403 mGycm COMPARISON: None FINDINGS: Aorta: Mild mixed calcified and soft plaque identified. No abdominal aortic aneurysm. Celiac: Unremarkable SMA: Mild atherosclerotic calcification at the origin of the SMA. Otherwise, patent VERN : Unremarkable Right Renal: Mild mixed calcified and soft plaque identified. Left Renal: Mild atherosclerotic calcification at the origin of the left renal artery. RIGHT Iliac Arteries: Common Iliac: Patent with evidence of a stent. External Iliac: Moderate mixed calcified and soft plaque identified. No high grade stenosis. Internal Iliac: Moderate mixed calcified and soft plaque identified. No high grade stenosis. LEFT Iliac Arteries: Common Iliac: Moderate mixed calcified and soft plaque identified. No high grade stenosis. External Iliac: Moderate mixed calcified and soft plaque identified. No high grade stenosis. Internal Iliac: Moderate mixed calcified and soft plaque identified. No high grade stenosis. RIGHT Lower Extremity: Common Femoral: Mild mixed calcified and soft plaque identified. Superficial Femoral: Occluded Deep Femoral: Mild mixed calcified and soft plaque identified. Popliteal: Reconstituted from collaterals with mild atherosclerotic calcification. Anterior Tibial: Unremarkable Tibioperoneal Trunk: Unremarkable Posterior Tibial: Unremarkable Peroneal: Unremarkable Dorsalis Pedis: Unremarkable LEFT Lower Extremity: Common Femoral: Mild mixed calcified and soft plaque identified. Superficial Femoral: Completely occluded, as well as an occluded stent. Deep Femoral: Moderate mixed calcified and soft plaque identified. No high grade stenosis. Popliteal: Reconstituted from collaterals with [id number] atherosclerotic calcification. Anterior Tibial: Unremarkable Tibioperoneal Trunk: Unremarkable Posterior Tibial: Unremarkable Peroneal: Unremarkable Dorsalis Pedis: Unremarkable Other Findings: Bibasilar dependent atelectasis. The liver and gallbladder are grossly unremarkable. Heterogeneous appearance of the spleen, likely secondary to phase of contrast. Surgical sutures along the tail of the pancreas, please correlate clinically. The bilateral adrenals are grossly unremarkable. Bilateral renal cysts. No evidence of hydronephrosis bilaterally. No follow-up is recommended. Status post anterior abdominal wall hernia repair. Urinary bladder is grossly unremarkable. Scattered colonic diverticulosis with focal wall thickening of the sigmoid colon with adjacent stranding, concerning for acute diverticulitis of the mid transverse colon. The remaining bowel loops are grossly unremarkable. There are multilevel degenerative changes at the spine. Ill-defined lytic lesion of the right proximal tibia, this may be secondary to prior trauma. 2.7 x 3.1 cm right popliteal fossa cyst. CT/CTA Abd w/Runoff W/WO Contrast IMPRESSION: Extensive atherosclerotic disease of the abdominal aorta and branches, as well as the bilateral lower extremity arterial system. Completely occluded bilateral superficial femoral arteries with reconstitution of the bilateral popliteal arteries distally. Three-vessel runoffs are demonstrated within the legs. Focal acute diverticulitis of the mid transverse colon. No abscess. No free a ir. 2.7 x 3.1 cm right popliteal fossa cyst. Ill-defined lytic lesion of the right proximal tibia, this may be secondary to prior trauma, please correlate clinically. If clinically indicated dedicated radiograph of the right tibia or MRI may be obta ined for further characterization. Reading Location: [id number]
--- NOTE | 2025-01-24 15:16 | ED.VIS.LOWEX ---
HPI History of Present Illness HPI Narrative: 69-year-old female history of COPD, PAD with prior femoropopliteal bypass on aspirin and Plavix. Sees vascular surgeon Dr. Alec Dyer. Patient complaining of increasing left foot pain and tingling for the last 2 weeks. Worse with walking. Denies any fall injury or trauma. No fever. Chief Complaint: Lower Extremity Injury Informant: patient Occured/Mechanism Mechanism/Context: No injury and No blunt trauma Onset/Context/Timing Onset: Weeks Context: Gradual Onset Timing: Continuous Quality of Pain: Throbbing Current Severity: Moderate Maximum Severity: Moderate Narrative Narrative: 69-year-old female known peripheral arterial disease with increasing pain and tingling to her left foot for 2 weeks. Prior similar symptoms: Yes Recent Illness/Hospitalization: No PFSH PFSH Medical History GI bleed Decrease in appetite Wears hearing aid History of steroid therapy Arthritis PVD (peripheral vascular disease) Syncope Dietary restriction Gastric reflux Leg cramps Anxiety disorder Wears dentures Low iron High cholesterol History of ulceration On home oxygen therapy Post-menopausal Diverticulitis Back pain due to injury Chronic headaches History of stress test Wears glasses Chronic pain Shortness of breath Smoker History of cardiovascular stress test Leg pain S/P arteriogram of extremity Essential hypertension COPD (chronic obstructive pulmonary disease) Incisional hernia without mention of obstruction or gangrene Impaired fasting glucose History of pelvic hematoma Duodenal ulcer Clostridium difficile colitis Closed fracture of fifth metatarsal bone of left foot Injury, spleen, with capsular tears Pseudocyst of pancreas Peptic ulcer disease SBO (small bowel obstruction) H/O spleen injury Asthma Hyperlipemia Alcohol abuse Home Medications ?Medication ?Instructions ?Recorded ?Last Taken ?Type carvedilol 25 mg tablet 25 mg PO BID HEART 05/28/19 09/15/24 History spironolactone 25 mg tablet 25 mg PO DAILY BLOOD PRESSURE 05/28/19 09/14/24 History alprazolam 0.5 mg tablet 0.5 mg PO TID ANXIETY 02/12/21 09/15/24 History acetaminophen 500 mg tablet 1,000 mg PO Q6H PRN PAIN 07/19/22 09/14/24 History pantoprazole 40 mg tablet,delayed 40 mg PO BID GERD 30 days #60 tabs 10/12/22 09/14/24 Rx release guaifenesin 1,200 mg tablet, 1,200 mg PO BID PRN MUCOUS 07/02/23 06/10/24 History extended release 12 hr (Mucinex) lisinopril 40 mg tablet 40 mg PO QHS BLOOD PRESSURE 07/14/23 09/14/24 History aspirin 81 mg tablet,delayed 81 mg PO BREAKFAST HEART HEALTH 07/19/23 09/14/24 Rx release #0 tabs gabapentin 600 mg tablet 600 mg PO 4X/DAY NERVE PAIN 11/06/23 09/14/24 History tramadol 50 mg tablet 50 mg PO 4X/DAY PRN PAIN 11/06/23 09/15/24 History multivitamin with minerals-folic 1 tab PO DAILY supplement 01/30/24 09/15/24 History acid 80 mcg chewable tablet (Centrum Adult 50 Plus) atorvastatin 80 mg tablet 80 mg PO QHS CHOLESTEROL #90 tabs 02/27/24 09/14/24 Rx miscellaneous medical supply #1 ea 06/19/24 Unknown Rx ipratropium 0.5 mg-albuterol 3 mg 3 ml inhalation Q4H PRN PRN SOB 09/01/24 09/15/24 Rx (2.5 mg base)/3 mL nebulization &/OR WHEEZING #180 mL soln clopidogrel 75 mg tablet 75 mg PO DAILY BLOOD THINNER #90 12/11/24 Unknown Rx tabs albuterol sulfate 90 mcg/actuation 2 puff inhalation Q4H PRN 12/15/24 Unknown Rx aerosol inhaler (Ventolin HFA) shortness of breath or wheezing #18 grams fluticasone fur. 200 mcg-umeclid 1 inh inhalation DAILY ASTHMA #60 12/15/24 Unknown Rx 62.5 mcg-vilant 25 mcg ea inhalat.powder (Trelegy Ellipta) oxycodone 5 mg capsule 5 mg PO TID PRN pain 4 days #12 01/24/25 Unknown Rx caps Allergy/AdvReac Type Severity Reaction Status Date / Time amlodipine AdvReac Intermediate Nausea/Vom/ Verified 01/24/25 14:58 Diarrhea clonidine AdvReac Mild Nausea/Vom/ Verified 01/24/25 14:58 Diarrhea adhesive AdvReac Rash Verified 01/24/25 14:58 codeine AdvReac Nausea Verified 01/24/25 14:58 Family History Mother Heart disease Hypertension Diabetes Sister Hypertension Brother Hypertension Sister Hypertension Cervical cancer Brother Pancreatic cancer Surgical History History of appendectomy History of esophagogastroduodenoscopy (EGD) Hx of colonoscopy Hx of cervical spine surgery H/O: H/O colostomy History of hernia repair Social History household members: spouse housing: house Smoking Status: Current every day smoker tobacco type: cigarettes Electronic Cigarette Use: not used second hand exposure: Yes alcohol intake: current alcohol intake frequency: a few times a week substance use type: does not use caffeine: Yes what type of physical activity do you participate in: bicycling frequency: 1-2 times per week ROS ROS ED ROS Narrative Denies recent illness. Constitutional Constitutional ED: Denies chills or fever(s) Eyes Eyes: Denies blurry vision ENT ENT ED: Denies ear pain Cardiovascular Cardiovascular: Denies chest pain Respiratory/Chest Respiratory/Chest: Denies cough or dyspnea Gastrointestinal Gastrointestinal: Denies abdominal pain Genitourinary Genitourinary ED: Denies dysuria or hematuria Musculoskeletal Musculoskeletal: Denies arthralgias or back pain Integumentary Denies abscess or Abrasions Neurologic Neurologic: Denies headache(s), paresthesias or weakness Psychiatric Psychiatric: Denies anxiety Endocrine Endocrinology: Denies polydipsia or polyphagia Hematologic/Lymphatic Hematologic/Lymphatic: Denies lymphadenopathy Allergic/Immunologic Allergic/Immunologic ED: Denies mouth swelling or tongue swelling EXAM Physical Exam Narrative Exam Narrative: Well-appearing 69-year-old female. Vital signs are stable and afebrile. H EENT exam pupils round react light. Mytrex members. Lungs clear to auscultation bilaterally. Heart regular rhythm rate about 100 no murmur. Chest wall and ribs nontender. Abdomen soft nontender. Extremities moves all 4 extremities. Normal strength. She does have sensation in her left foot and lower leg. I am unable to palpate a DP pulse. Nurses unable to Doppler a left DP pulse. The left lower leg is hyperemic. There is mild tenderness of the foot. Dorsi plantarflexion intact. Calf is nontender. Hyperemia goes about assisted up the left lower leg and calf. Neurologically she is awake and alert. Answer question following commands. Normal motor strength. Const Vital Signs: 01/24/25 14:55 Temperature 97.6 F L Temperature Source Oral Pulse Rate 103 H Respiratory Rate 18 Blood Pressure 114/59 L Blood Pressure Mean 77 Pulse Ox 100 Oxygen Delivery Method Nasal Cannula Oxygen Flow Rate (L/min) 2 Positive well developed; Negative for obese, cachectic, contractures or unkempt General Appearance ED: well developed and NAD; Negative for unkempt, cachectic or contractures Nutritional Appearance: Negative for cachectic or obese HEENT Reports moist mucous membranes normocephalic and atraumatic Eyes PERRL Neck full ROM and supple Thyroid: Negative for tender Lymph Lymphatic: Negative for other Chest Wall inspection of chest normal and palpation of chest normal Resp normal respiratory effort, no retractions and clear to auscultation bilaterally Auscultation: Negative for rales, rhonchi, wheezes or diminished lung sounds Cardio regular rate, regular rhythm, S1 normal heart sound, S2 normal heart sound and no murmurs Rate: Negative for bradycardia or tachycardic Rhythm: Negative for abnormal rhythm Bruits: Negative for other GI non-tender, non-distended and no masses Inspection: Negative for abdominal distention Auscultation: normoactive bowel sounds Palpation: soft; Negative for tender or guarding Back/Spine no CVA tenderness General Back: Negative for CVA tenderness Cervical Spine: Negative for cervical spine tenderness Thoracic Spine / Upper Back: Negative for thoracic spinal tenderness Lumbar Spine / Lower Back: Negative for lumbar spinal tenderness Extremity full ROM; Negative for normal to inspection Extremity Narrative: Hyperemic left lower leg and foot. Nonpalpable DP pulse. Delayed cap refill. Normal dorsi plantarflexion. Positive sensation. Unable to palpate left femoral artery. General Extremety ED: Yes edema General Extremity: edema Neuro oriented x3, CN's II-XII intact bilaterally and moves all extremities Sensorium / Orientation: alert, oriented to person, oriented to place and oriented to time; Negative for orientation impaired, confused or lethargic Motor Exam: strength 5/5 throughout Psych mental status grossly normal Appearance: Negative for unkempt Skin no wounds Lesions: no lesions Rashes: no rashes MDM MDM MDM Narrative Medical decision making narrative: 69-year-old male on Plavix and aspirin status post prior femoropopliteal bypass about 6+ months ago. Complaining of increasing pain in left foot with decreasing sensation. CTA with runoff will be obtained to determine if she has an acute clot or recurrent occlusion. There is no signs of infection. No history of trauma. Patient treated with morphine for pain. Repeat exam at 5:45 PM patient is doing well. Exam unchanged. Patient and I discussed her CAT scan results. I spoke to her vascular surgeon Dr. Alec Dyer. We went over the CAT scan results specifically in her exam. He is comfortable with her being discharged to home. He will follow-up her up in the office this week. He states that she has had numerous vascular surgeries. She was given a prescription of 12 oxycodone for pain until she follows up with her vascular surgeon. History & Record Review Discussion w/independent historian: Patient Additional record(s) reviewed:: Prior inpatient record, Prior outpatient record, Prior ED visit and Prior labs Lab Data Attestation: I reviewed the patient's lab results. Lab results narrative: CBC shows a white count 12.7. H&H 8.9 and 30 which is her baseline chronic anemia. Platelets 493. Chemistries normal gap 11. Normal BUN of 16 Kren 0.9. Glucose 98. Labs: Laboratory Results - last 24 hr 01/24/25 15:20 WBC 12.7 H RBC 3.70 L Hgb 8.9 L Hct 30.2 L MCV 81.6 MCH 24.1 L MCHC 29.5 L RDW Std Deviation 59.8 H RDW Coeff of Renea 20.3 H Plt Count 493 H MPV 8.7 Immature Gran % (Auto) 0.700 Neut % (Auto) 75.7 H Lymph % (Auto) 13.8 L Todd % (Auto) 7.7 Eos % (Auto) 1.5 Baso % (Auto) 0.6 Absolute Neuts (auto) 9.6 H Absolute Lymphs (auto) 1.75 Nucleated RBC % 0 Differential Comment SCANNED Sodium 135 Potassium 3.9 Chloride 101 Carbon Dioxide 23.5 Anion Gap 11 BUN 16 Creatinine 0.93 Estim Creat Clear Calc 52.80 Est GFR (MDRD) Non-Af 66 BUN/Creatinine Ratio 17.2 Glucose 98 Calcium 9.4 Radiography Diagnostic Testing: Clinical Impression(s) from Imaging Studies Abdomen/Pelvis CTA 01/24/25 15:14 IMPRESSION: Extensive atherosclerotic disease of the abdominal aorta and branches, as well as the bilateral lower extremity arterial system. Completely occluded bilateral superficial femoral arteries with reconstitution of the bilateral popliteal arteries distally. Three-vessel runoffs are demonstrated within the legs. Focal acute diverticulitis of the mid transverse colon. No abscess. No free air. 2.7 x 3.1 cm right popliteal fossa cyst. Ill-defined lytic lesion of the right proximal tibia, this may be secondary to prior trauma, please correlate clinically. If clinically indicated dedicated radiograph of the right tibia or MRI may be obtained for further characterization. Reading [facility] Dis[facility] Triage Chief Complaint: Lower Extremity Injury ED Provider: Missael Jacobs Dx/Rx/DC Orders Clinical Impression: Peripheral arterial disease Instructions: PAD Dc Prescriptions: New oxycodone 5 mg capsule 5 mg PO TID PRN (Reason: pain) 4 Days Qty: 12 0RF No Action (DME) miscellaneous medical supply Misc See Rx Instructions .Route Qty: 1 0RF Rx Instructions: Shower/Bath Chair/stool carvedilol 25 MG tablet 25 mg PO BID spironolactone 25 MG tablet 25 mg PO DAILY alprazolam 0.5 mg tablet 0.5 mg PO TID acetaminophen 500 mg Tablet 1,000 mg PO Q6H PRN (Reason: PAIN ) pantoprazole 40 mg Tablet,Delayed Release (Dr/Ec) 40 mg PO BID 30 Days Qty: 60 0RF lisinopril 40 mg tablet 40 mg PO QHS aspirin 81 mg Tablet,Delayed Release (Dr/Ec) 81 mg PO BREAKFAST Qty: 0 0RF guaifenesin [Mucinex] 1,200 mg tablet extended release 12hr 1,200 mg PO BID PRN (Reason: MUCOUS) gabapentin 600 mg tablet 600 mg PO 4X/DAY tramadol 50 mg tablet 50 mg PO 4X/DAY PRN (Reason: PAIN ) Centrum Adult 50 Plus 80 mcg tablet,chewable 1 tab PO DAILY atorvastatin 80 mg tablet 80 mg PO QHS Qty: 90 3RF ipratropium-albuterol 0.5 mg-3 mg(2.5 mg base)/3 mL solution for nebulization 3 ml inhalation Q4H PRN PRN (Reason: SOB &/OR WHEEZING) Qty: 180 6RF clopidogrel 75 mg tablet 75 mg PO DAILY Qty: 90 3RF albuterol sulfate [Ventolin HFA] 90 mcg/actuation HFA aerosol inhaler 2 puff inhalation Q4H PRN (Reason: shortness of breath or wheezing) Qty: 18 6RF Trelegy Ellipta 200-62.5-25 mcg blister with device 1 inh inhalation DAILY Qty: 60 11RF Primary Care Provider: Nate Gray Referrals: Alec Lopez MD [Med Staff - Active Staff] - As soon as possible (I spoke with him today. He is to call the office on Sunday. I will get you in soon as possible and discuss further treatment. Continue your daily aspirin and Plavix.) Ntae Gray MD [Primary Care Provider] - Activity Restrictions/Additional Instructions: I spoke with your vascular surgeon today. Call his office Sunday morning. He will get you in soon as possible. Continue your aspirin and Plavix. Print Language: Prydeinig Disposition Disposition: Home, Self Care
[2025-01-24] MEDS: morphine 8 MG/ML Syringe 6 MG IV ×2 (15:23→16:24)
[2025-01-24] MEDS: Ondansetron 4 MG/2 ML Vial IV (15:23)
[2025-01-24 15:26] LABS: Absolute Lymphocyte Count 1.75 X10^3/uL (0.83-4.51); Absolute Neutrophil Count 9.6 X10^3/uL (2.0-7.7); Basophil# 0.07 X10^3/uL; Basophil% 0.6 % (0-1); Eosinophil# 0.19 X10^3/uL; Eosinophils% 1.5 % (0-5); Hematocrit 30.2 % (37-47); Hemoglobin 8.9 g/dL (12.0-15.0); Lymphocyte # 1.75 X10^3/ul (0.83-4.51); Lymphocyte % 13.8 % (19-41); Mean Corp Hgb Conc 29.5 g/dL (32-36); Mean Corpuscular Hgb 24.1 pg (27.0-32.0); Mean Corpuscular Volume 81.6 fL (81-99); Mean Platelet Vol. 8.7 fl (6.2-12.0); Monocyte# 0.97 X10^3/uL; Monocyte% 7.7 % (0-10); NRBC Flagged by Analyzer 0 % (0-5); Neutrophil # 9.59 X10^3/uL (2.7-7.7); Neutrophil % 75.7 % (47-70); POSITIVE MORPHOLOGY YES; Platelet Count 493 K/mm3 (150-450); RBC Distribution Width CV 20.3 % (11.6-14.6); RBC Distribution Width SD 59.8 fl (35.1-43.9); White Blood Count 12.7 K/mm3 (4.4-11.0)
[2025-01-24 15:27] LABS: Differential Indicated SCAN CRITERIA MET
[2025-01-24 15:43] LABS: Anion Gap 11 (5-15); BUN 16 mg/dL (4-19); BUN/Creat Ratio 17.2 RATIO (10-20); Calcium,Total 9.4 mg/dL (7.6-11.0); Carbon Dioxide 23.5 mmol/L (21.0-32.0); Chloride 101 mmol/L (98-108); Creatinine, Serum 0.93 mg/dL (0.70-1.20); EST Glomerular Filtration Rate 66 (>60); Glucose 98 mg/dL (70-99); Potassium 3.9 mmol/L (3.3-5.1); Sodium Level 135 mmol/L (133-145)
[2025-01-24 15:47] LABS: Differential Comment SCANNED
[2025-01-24 17:52] VITALS: BP 118/60; PULSE 96; RESP 16; TEMP 34.4; O2SAT 94
[2025-01-24 17:53] VITALS: BP 114/59; PULSE 103; RESP 18; TEMP 36.4; O2SAT 100
== END 2025-01-24 18:01 | disposition home or self-care (01) ==
PROVIDERS: Emergency Provider Emergency Medicine; PCP Internal Medicine; Visit Provider Emergency Medicine
DX: I73.9 Peripheral vascular disease, unspecified (principal); J44.9 Chronic obstructive pulmonary disease, unspecified; F17.210 Nicotine dependence, cigarettes, uncomplicated; I10 Essential (primary) hypertension; Z79.82 Long term (current) use of aspirin; Z79.01 Long term (current) use of anticoagulants
CPT/HCPCS: 75635; 80048; 85025; 96374; 96375; 96376; 99282; Q9967; A4216; J2405

== ENCOUNTER → 2025-01-27 | Outpatient (CLI) | payer MEDICARE, SELFPAY ==
--- NOTE | 2025-01-27 10:15 | PET_ITS ---
EXAM: PET/CT Study CLINICAL HISTORY: 69 y/o F with ABNORMAL FINDINGS IN LUNG FIELD. Lung nodules in high-risk patient, history of smoking. COMPARISON: Low-dose CT chest 01/16/2025. TECHNIQUE: PROCEDURE: Following the intravenous administration of radionucleotide, image acquisition on a dedicated PET/CT unit was performed at one hour post injection. A preliminary CT study encompassing the Skull base, neck, chest, abdomen, pelvis, and proximal thighs was performed for purposes of attenuation correction and anatomic localization. The proximal thighs were also included. The patient's blood glucose level was 92 mg/dL (allowable range: 50-180 mg/dL). RADIOPHARMACEUTICAL: 11.8 mCi 18F-FDG (Fluorodeoxyglucose F18) IV was injected into patient. FINDINGS: Physiologic uptake: There may be expected metabolic uptake within the brain, tongue and floor of the mouth and larynx/vocal cords, heart, trisha (many normal individuals have hilar uptake in less than 3 nodes with mildly avid hilar nodes less than 2.7 SUV), liver and spleen, system, and GI tract and symmetric muscle uptake. FDG AVID AND NON-AVID LESIONS. Reported avid SUV values (g/mL*) are maximum SUV. Average liver parenchyma SUV: 2.4 HEAD/NECK: No suspicious hypermetabolic lesion. CHEST: No suspicious hypermetabolic lesion. ABDOMEN: No suspicious hypermetabolic lesion. PELVIS: No suspicious hypermetabolic lesion. Additional CT findings: Moderate coronary artery and severe thoracic aortic calcific plaque. Retained secretions within the central airways. Redemonstration of small bilateral pulmonary nodules and small ground-glass opacities, better evaluated on recent chest CT. Prior coil embolization in the region of the splenic artery. Prior large ventral abdominal wall hernia repair with mesh and surgical anchor sutures. Bilateral renal lesions, incompletely evaluated. Prior bilateral iliac artery stents. Cervical and thoracolumbar spondylosis. Partially visualized left lower extremity arterial stent. PET/PET/CT Tumor Base -Thigh Init IMPRESSION: No visualized hypermetabolic pulmonary lesion, likely due to size and/or subsol id characteristics. Continued attention on follow-up chest imaging is recommended as patient's pulmonary findings likely r epresent indolent/slow growing neoplasms which are currently too small for PET resolution. Please note the low-dose CT scan was performed to facilitate PET image reconstr uction and anatomic localization and does not replace a diagnostic CT. Any diagnostic CT requested and performed at the time of the PET will be reported separately. Reading Location: [id number]
== END | disposition home or self-care (01) ==
PROVIDERS: PCP Internal Medicine; Referring Provider Nurse Practitioner Acute Care; Visit Provider Nurse Practitioner Acute Care
DX: R91.8 Other nonspecific abnormal finding of lung field (principal); J44.9 Chronic obstructive pulmonary disease, unspecified; F17.210 Nicotine dependence, cigarettes, uncomplicated; F41.9 Anxiety disorder, unspecified; R09.02 Hypoxemia
CPT/HCPCS: 78815; A9552

== ENCOUNTER 2025-02-11 16:15 | Observation (INO) | payer MEDICARE, SELFPAY ==
[2025-02-10 08:03] VITALS: BMI 34.3
[2025-02-11] VITALS (10 sets, daily range): BP systolic 90–133; BP diastolic 45–100; PULSE 70–110; RESP 14–16; TEMP 36.6–36.7; O2SAT 95–100
--- NOTE | 2025-02-11 16:18 | OP.PCM_ITS ---
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 Her most recent intervention was a left femoral to popliteal bypass with great saphenous vein that had significant recurrent stenosis at the proximal aspect requiring open revision. This subsequently failed and her rest pain has returned. She also unfortunately has a left profunda femoral artery occlusion that is due to initial insult of a errant closure device placement which caused significant injury to this profunda. She previously underwent profunda thromboendarterectomy and patch angioplasty but this also has subsequently failed. Until recently the patient has continued to smoke which likely is a significant contributing factor to her failed revascularization efforts. She is taken now for angiogram to assess for distal targets for a planned femoral to popliteal or tibial bypass in conjunction with an iliac to profunda bypass with cadaver in the efforts to salvage her leg. She had a previous CTA aorta with runoff that did not give adequate information regarding her tibial vessels and which was the better runoff to the foot. Description of procedure: Upon obtaining informed consent and verification correct patient procedure site the patient was taken the Manager Ed where she was positioned prepped and draped in usual sterile fashion. Time was performed and conscious sedation ministered Versed and fentanyl. Skin overlying the right common femoral artery was anesthetized with 1% lidocaine the vessel accessed with a micropuncture needle wire and ultrasound guidance. This then exchanged for micropuncture sheath through which injection iliofemoral angiogram was performed revealing satisfactory positioning no extravasation or dissection. Through this a Bentson wire was advanced and the micropuncture sheath exchanged for a short 5 Bhutanese sheath. Through the 5 Bhutanese sheath an Omni Flush catheter was advanced into the abdominal aorta and digital subtraction aortogram pelvic angiogram was performed. The Omni Flush catheter and Bentson wire were then navigated into the contralateral iliac system and the catheter advanced into the distal external iliac artery. From this position subtraction angiography sequential imaging of the left lower extremity was obtained. Patient was then heparinized allowed to circulate for 3 minutes. Through the Omni Flush catheter a Bentson wire was advanced the Omni Flush catheter and short 5 Bhutanese sheath exchanged for a 5 Bhutanese 45 catapult sheath which was advanced up over the aortic bifurcation into the distal external iliac artery. In addition to obtaining imaging for our bypass plan the hope was that we would be able to improve some element of her inflow to reduce her rest pain while awaiting recovery from her recent pneumonia so that we can safely perform her bypass surgery. From this position using a KMP catheter we attempted to engage the flush occlusion of the profunda femoral artery utilizing a command 18 wire. We were unable to make any significant headway engaging the vessel nor did the wire traversed into the superficial femoral artery. After failed extensive efforts with no forward progress made we decided that we would abandon efforts at endovascular intervention of either the SFA or profunda. There did however appear to be a significant area of stenosis in the proximal common femoral artery above the dominant posterior branch that was the entirety of the inflow into her left lower extremity. The hope was that if this was in fact significant that treating it would give her some incremental improvement in her perfusion and help relief of symptoms until her bypass. Through the 5 Bhutanese sheath an intravascular ultrasound probe was advanced and recorded pullback performed of the common femoral artery and external iliac artery. This confirmed 58% stenosis of the proximal common femoral/distal external iliac artery. A 6 mm x 20 Meza angio sculpt balloon was advanced into position and inflated for multiple inflations to nominal for 3 minutes each centered on the lesion and then deflated withdrawn. Repeat angiography revealed improvement in the area of stenosis with no residual significant stenosis and no extravasation or dissection. The 018 wire and balloon were then withdrawn and a Bentson wire readvanced. The long 5 [place] sheath was exchanged for a short 5 Bhutanese sheath and Mynx closure device deployed followed by 5 minutes of mini pressure with satisfactory stasis noted. Patient was then taken to the PCU for bedrest prior to discharge to home. Radiograph interpretation: Abdominal aorta patent normal caliber with scattered calcified atherosclerosis but no stenosis. Right common and external iliac artery stents patent with no significant stenosis. Mild, approximately 30%, stenosis of the proximal right common femoral artery. Left common and external iliac artery stents patent with no significant stenosis. Mild diffuse atherosclerosis proximal to and distal to the stents with no significant stenosis. The junction of the external iliac artery to the common femoral artery had 58% stenosis consistent with intimal hyperplasia. This resolved with angioplasty with less than 30% stenosis residual. The distal common femoral artery was occluded as was the proximal 2 cm of the profunda with reconstitution of the secondary branches. There was a large dominant posterior branch which provided collaterals to reconstitute the profunda and all of its branches as well as the popliteal distally. The superficial femoral artery was totally occluded at its origin with reconstitution of the below the knee popliteal artery. This vessel was small in caliber but appeared to be free of any significant atherosclerosis or stenosis. Runoff to the foot was present in all 3 vessels though contrast transit was significantly delayed due to her more proximal occlusions. All vessels appeared to be free of any significant atherosclerosis or stenosis, and the posterior tibial artery appeared to be the largest caliber which filled the majority of the foot and pedal arch. Surgical Findings: See above Complications Complications: No
[2025-02-11] MEDS: oxyCODONE 5 MG Tablet PO (20:19)
--- NOTE | 2025-02-11 20:33 | NURSING ---
Vital signs stable. site without bleeding and and dressing intact. Reviewed all instructions with patient . IV removed. Patient able to ambulate without difficulty. Patient present to take patient home. Patient taken by wheelchair to car.
== END 2025-02-11 20:25 | disposition home or self-care (01) ==
LOC: PCU 18:05
PROVIDERS: Admitting Provider Surgery Trauma Surgery; PCP Internal Medicine; Referring Provider Surgery Trauma Surgery; Visit Provider Surgery Trauma Surgery
DX: I70.222 Atherosclerosis of native arteries of extremities with rest pain, left leg (principal); J44.9 Chronic obstructive pulmonary disease, unspecified; I70.92 Chronic total occlusion of artery of the extremities; I70.0 Atherosclerosis of aorta; I10 Essential (primary) hypertension; E78.00 Pure hypercholesterolemia, unspecified; F17.200 Nicotine dependence, unspecified, uncomplicated; Z95.820 Peripheral vascular angioplasty status with implants and grafts
CPT/HCPCS: 36200; 36245; 37224; 37252; 75625; 75710; 76937; 99152; 99153; C1725; C1753; C1760; C1769; C1894; Q9967

== ENCOUNTER 2025-02-14 14:50 | Inpatient (IN) | payer MEDICARE, MEDICAID, SELFPAY ==
[2025-02-14 14:52] VITALS: BP 164/112; PULSE 116; RESP 16; TEMP 36.9; O2SAT 95
--- NOTE | 2025-02-14 15:12 | EKG12_ITS ---
Test Reason : Blood Pressure : */* mmHG Vent. Rate : 108 BPM Atrial Rate : 108 BPM P-R Int : 134 ms QRS Dur : 76 ms QT Int : 332 ms P-R-T Axes : 67 86 54 degrees QTcB Int : 444 ms Sinus tachycardia with Premature atrial complexes Low voltage QRS Borderline ECG Baseline artifact Confirmed by Melquiades Bundy ([id number]), tape editor DRISS GOMEZ ([id number]) on 02/16/2025 9:09:18 AM Referred By: Confirmed By: Melquiades Bundy
[2025-02-14 15:16] VITALS: BMI 34.3
[2025-02-14] MEDS: Ondansetron 4 MG/2 ML Vial IV (15:19)
[2025-02-14] MEDS: Morphine 4 MG/ML Syringe IV (15:19)
[2025-02-14 15:29] LABS: Absolute Lymphocyte Count 1.18 X10^3/uL (0.83-4.51); Basophil# 0.07 X10^3/uL; Basophil% 0.5 % (0-1); Eosinophil# 0.03 X10^3/uL; Eosinophils% 0.2 % (0-5); Hematocrit 30.3 % (37-47); Hemoglobin 9.3 g/dL (12.0-15.0); Lymphocyte # 1.18 X10^3/ul (0.83-4.51); Mean Corp Hgb Conc 30.7 g/dL (32-36); Mean Corpuscular Hgb 24.7 pg (27.0-32.0); Mean Corpuscular Volume 80.4 fL (81-99); Mean Platelet Vol. 9.4 fl (6.2-12.0); Monocyte# 0.77 X10^3/uL; Monocyte% 5.9 % (0-10); NRBC Flagged by Analyzer 0 % (0-5); Neutrophil # 11.02 X10^3/uL (2.7-7.7); POSITIVE MORPHOLOGY YES; Platelet Count 532 K/mm3 (150-450); RBC Distribution Width CV 20.2 % (11.6-14.6); RBC Distribution Width SD 58.9 fl (35.1-43.9); Red Blood Count 3.77 M/mm3 (4.2-5.4); White Blood Count 13.1 K/mm3 (4.4-11.0)
--- NOTE | 2025-02-14 15:29 | EX.ED.DYSGE1 ---
HPI History of Present Illness Chief Complaint: Lower Extremity Injury Detail of Chief Complaint: Patient presents with pain left leg and foot. This started last evening. Informant: patient Onset/Context/Timing Onset: Yesterday Context: Sudden Onset Timing: Continuous Quality: Pain at rest left leg and foot Location: Left leg and foot Current Severity: Moderate Maximum Severity: Severe Worsened by: Weightbearing and use Relieved by: Nothing Associated Symptoms Associated Symptoms: Discoloration of the leg and foot which are new from Dr. Lopez's note Apri Narrative Narrative: Patient is a 69-year-old woman. She continues to smoke in spite of being told to quit. She was seen on January [address] Lopez.'s note was reviewed. She underwent procedure February 11. She underwent arteriogram, left lower extremity with runoffs. She had an intravascular ultrasound left common femoral and external iliac artery. She had angioplasty of the left distal external iliac artery and proximal common femoral artery. Patient's skin changes are new since January 29 based on documentation by Dr. Lopez. She presents with pain at respiratory yesterday. She denies trauma. She continues to smoke. She has no other complaints. Prior similar symptoms: Yes Recent Illness/Hospitalization: Yes PFSH PFSH Medical History GI bleed Decrease in appetite Wears hearing aid History of steroid therapy Arthritis PVD (peripheral vascular disease) Syncope Dietary restriction Gastric reflux Leg cramps Anxiety disorder Wears dentures Low iron High cholesterol History of ulceration On home oxygen therapy Post-menopausal Diverticulitis Back pain due to injury Chronic headaches History of stress test Wears glasses Chronic pain Shortness of breath Smoker History of cardiovascular stress test Leg pain S/P arteriogram of extremity Essential hypertension COPD (chronic obstructive pulmonary disease) Incisional hernia without mention of obstruction or gangrene Impaired fasting glucose History of pelvic hematoma Duodenal ulcer Clostridium difficile colitis Closed fracture of fifth metatarsal bone of left foot Injury, spleen, with capsular tears Pseudocyst of pancreas Peptic ulcer disease SBO (small bowel obstruction) H/O spleen injury Asthma Hyperlipemia Alcohol abuse Home Medications ?Medication ?Instructions ?Recorded ?Last Taken ?Type carvedilol 25 mg tablet 25 mg PO BID HEART 05/28/19 09/15/24 History spironolactone 25 mg tablet 25 mg PO DAILY BLOOD PRESSURE 05/28/19 09/14/24 History alprazolam 0.5 mg tablet 0.5 mg PO TID ANXIETY 02/12/21 02/11/25 History acetaminophen 500 mg tablet 1,000 mg PO Q6H PRN PAIN 07/19/22 09/14/24 History pantoprazole 40 mg tablet,delayed 40 mg PO BID GERD 30 days #60 tabs 10/12/22 09/14/24 Rx release guaifenesin 1,200 mg tablet, 1,200 mg PO BID PRN MUCOUS 07/02/23 06/10/24 History extended release 12 hr (Mucinex) lisinopril 40 mg tablet 40 mg PO QHS BLOOD PRESSURE 07/14/23 09/14/24 History aspirin 81 mg tablet,delayed 81 mg PO BREAKFAST HEART HEALTH 07/19/23 02/11/25 Rx release #0 tabs gabapentin 600 mg tablet 600 mg PO 4X/DAY NERVE PAIN 11/06/23 02/11/25 History tramadol 50 mg tablet 50 mg PO 4X/DAY PRN PAIN 11/06/23 09/15/24 History multivitamin with minerals-folic 1 tab PO DAILY supplement 01/30/24 09/15/24 History acid 80 mcg chewable tablet (Centrum Adult 50 Plus) atorvastatin 80 mg tablet 80 mg PO QHS CHOLESTEROL #90 tabs 02/27/24 09/14/24 Rx miscellaneous medical supply #1 ea 06/19/24 Unknown Rx ipratropium 0.5 mg-albuterol 3 mg 3 ml inhalation Q4H PRN PRN SOB 09/01/24 09/15/24 Rx (2.5 mg base)/3 mL nebulization &/OR WHEEZING #180 mL soln clopidogrel 75 mg tablet 75 mg PO DAILY BLOOD THINNER #90 12/11/24 02/11/25 Rx tabs albuterol sulfate 90 mcg/actuation 2 puff inhalation Q4H PRN 12/15/24 Unknown Rx aerosol inhaler (Ventolin HFA) shortness of breath or wheezing #18 grams fluticasone fur. 200 mcg-umeclid 1 inh inhalation DAILY ASTHMA #60 12/15/24 Unknown Rx 62.5 mcg-vilant 25 mcg ea inhalat.powder (Trelegy Ellipta) oxycodone 5 mg capsule 5 mg PO TID PRN pain 4 days #12 01/24/25 02/11/25 Rx caps hydrocodone-acetaminophen 5-325mg 1 tab PO TID 02/14/25 02/14/25 History 5mg-325mg Allergy/AdvReac Type Severity Reaction Status Date / Time amlodipine AdvReac Intermediate Nausea/Vom/ Verified 02/14/25 14:52 Diarrhea clonidine AdvReac Mild Nausea/Vom/ Verified 02/14/25 14:52 Diarrhea adhesive AdvReac Rash Verified 02/14/25 14:52 codeine AdvReac Nausea Verified 02/14/25 14:52 Family History Mother Heart disease Hypertension Diabetes Sister Hypertension Brother Hypertension Sister Hypertension Cervical cancer Brother Pancreatic cancer Surgical History History of appendectomy History of esophagogastroduodenoscopy (EGD) Hx of colonoscopy Hx of cervical spine surgery H/O: H/O colostomy History of hernia repair Social History household members: spouse housing: house Smoking Status: Current every day smoker tobacco type: cigarettes Electronic Cigarette Use: not used second hand exposure: Yes alcohol intake: current alcohol intake frequency: a few times a week substance use type: does not use caffeine: Yes what type of physical activity do you participate in: bicycling frequency: 1-2 times per week ROS ROS ED Constitutional Constitutional ED: Denies chills, fever(s), subjective, sweats or weight loss Eyes Eyes: Denies blurry vision or change in vision ENT ENT ED: Denies ear pain, rhinorrhea or sore throat Cardiovascular Cardiovascular: Denies chest pain, orthopnea, palpitations or paroxysmal nocturnal dyspnea Respiratory/Chest Respiratory/Chest: Denies cough, dyspnea, dyspnea on exertion, orthopnea or paroxysmal nocturnal dyspnea Gastrointestinal Gastrointestinal: Denies abdominal pain, diarrhea, nausea or vomiting Genitourinary Genitourinary ED: Denies dysuria, hematuria or urinary frequency Musculoskeletal Musculoskeletal: Denies back pain, myalgias or neck pain Integumentary Reports rash Neurologic Neurologic: Reports paresthesias; Denies weakness Psychiatric Psychiatric: Reports anxiety Hematologic/Lymphatic Hematologic/Lymphatic: Reports systems reviewed and no addt'l complaints, except as documented EXAM Physical Exam Const Vital Signs: 02/14/25 14:52 Temperature 98.4 F Temperature Source Oral Pulse Rate 116 H Respiratory Rate 16 Blood Pressure 164/112 H Blood Pressure Mean 129 Pulse Ox 95 Oxygen Delivery Method Nasal Cannula Oxygen Flow Rate (L/min) 2 Positive well nourished and well developed Constitutional Narrative: Patient appears uncomfortable. She is complaining of pain left lower extremity. General Appearance ED: well developed; Negative for pallor HEENT HEENT Narrative: Head is atraumatic, cephalic. Ears normal. Nares patent. Posterior pharynx is normal Eyes PERRL and EOMs intact bilaterally General Eye ED: Negative for pale conjunctiva or scleral icterus Neck no lymphadenopathy, supple and no JVD Chest Wall inspection of chest normal and palpation of chest normal Resp normal respiratory effort and clear to auscultation bilaterally Cardio regular rhythm, S1 normal heart sound, S2 normal heart sound and no murmurs Rate: tachycardic GI normal to inspection, nondistended, normoactive bowel sounds, non-tender, non-distended and no masses; Negative for hepatosplenomegaly Back/Spine no CVA tenderness Extremity Negative for normal to inspection Extremity Narrative: Patient has discoloration of the left leg and foot. There is slight erythema. Capillary refill is 4 to 5 seconds. There is a bounding left femoral pulse. There is no popliteal pulse appreciated. There is biphasic flow noted with Doppler. There is no palpable pulse DP or PT on the left. There is monophasic flow PT no flow DP. Patient has altered sensation. There is no paralysis. Neuro oriented x3, CN's II-XII intact bilaterally and No no sensory deficits noted Sensorium / Orientation: alert Motor Exam: strength 5/5 throughout Psych Mood & Affect: anxious Skin No no rashes or lesions noted, No no wounds and skin turgor normal General Skin Exam: Negative for jaundice or pallor MDM MDM MDM Narrative Medical decision making narrative: Patient with an ischemic left leg/foot. Dr. Lopez was contacted. He returned page immediately. Agrees with treatment. He requested admission to medicine with consult to him. He will perform procedure on Sunday. She was scheduled for surgery the of this month. Lab Data Attestation: I reviewed the patient's lab results. Lab results narrative: Patient has a mild leukocytosis and microcytic anemia. The anemia is chronic. Patient had a leukocytosis January 24 as well as prior studies. Her H&H is essentially unchanged from prior. BMP is unremarkable. Glucose slightly elevated 105 with normal CO2 anion gap. Renal function is normal Labs: Laboratory Results - last 24 hr 02/14/25 15:15 WBC 13.1 H RBC 3.77 L Hgb 9.3 L Hct 30.3 L MCV 80.4 L MCH 24.7 L MCHC 30.7 L RDW Std Deviation 58.9 H RDW Coeff of Renea 20.2 H Plt Count 532 H MPV 9.4 Immature Gran % (Auto) 0.400 Neut % (Auto) 84.0 H Lymph % (Auto) 9.0 L [place] % (Auto) 5.9 Eos % (Auto) 0.2 Baso % (Auto) 0.5 Absolute Neuts (auto) 11.0 H Absolute Lymphs (auto) 1.18 Nucleated RBC % 0 PT 12.7 INR 0.9 APTT 31.3 Sodium 133 Potassium 4.8 Chloride 97 L Carbon Dioxide 25.6 Anion Gap 11 BUN 13 Creatinine 0.72 Estim Creat Clear Calc 60.92 Est GFR (MDRD) Non-Af 91 BUN/Creatinine Ratio 17.4 Glucose 105 H Calcium 9.5 EKG Initial EKG: Attestation: I personally reviewed and interpreted this EKG as follows: Interpretation: Sinus Tachycardia (Rate is 108. Patient does have premature atrial complexes noted. There is artifact. DC interval 234 ms. QRS duration 76 ms. QT durations 132 ms. [place] is normal. Voltage is low.) Management Discussion w/another healthcare provider: Hospitalist (Patient discussed with Dr. Mari Johnson. Plan is admission PCU full. If electrolyte panel is abnormal we will contact and unit placement may change.) and Obstetrics Technician (Spoke with Dr. Lopez. He agrees with treatment. Request admission to medicine and will perform procedure on Sunday.) Treatment and Re-Evaluation :: Patient was anticoagulated with heparin. Critical Care Time Critical Care Time: Yes Critical care time (excluding procedures): 30-74 minutes (31), Including time spent: (History, physical, documentation, review of prior records, independent rotation laboratory results and EKG), Discussing w/Patient &/or Family/Student Activities Director, Discussing w/Consultants (Hospitalist and Dr. Lopez), Arranging Admission or Transfer and Performing Direct Patient Care at Bedside Discharge Plan Dx/Rx/DC Orders Clinical Impression: Critical limb ischemia of left lower extremity, S/P femoral-popliteal bypass surgery, GERD (gastroesophageal reflux disease), Smoking greater than 30 pack years, PAOD (peripheral arterial occlusive disease), Anemia Disposition Disposition: Acute Care Hospital [facility]
[2025-02-14 15:31] LABS: Differential Indicated SCAN CRITERIA MET
[2025-02-14 15:44] LABS: International Normalized Ratio 0.9; Prothrombin Time (Protime)PT. 12.7 SECONDS (11.7-14.9)
[2025-02-14 15:45] LABS: Partial Thromboplast Time 31.3 Seconds (24.1-36.2)
[2025-02-14] MEDS: Heparin Injection (Vial) 5,000 UNIT/ML VIAL 5000 UNIT IV (15:51)
[2025-02-14] MEDS: HEPARIN/D5w 25,000 UNITS 25,000 UNITS/250 ML IV.SOLN. 11 UNITS CONT INF (15:53)
[2025-02-14] MEDS: HYDROmorphone 0.5 MG/0.5 ML SYRINGE IV (16:04)
[2025-02-14 16:10] LABS: Anion Gap 11 (5-15); BUN 13 mg/dL (4-19); BUN/Creat Ratio 17.4 RATIO (10-20); Calcium,Total 9.5 mg/dL (7.6-11.0); Carbon Dioxide 25.6 mmol/L (21.0-32.0); Chloride 97 mmol/L (98-108); Creatinine, Serum 0.72 mg/dL (0.70-1.20); EST Glomerular Filtration Rate 91 (>60); Estimated Creatinine Clearance 60.92 ml/min (50-250); Glucose 105 mg/dL (70-99); Potassium 4.8 mmol/L (3.3-5.1); Sodium Level 133 mmol/L (133-145)
[2025-02-14 16:18] LABS: Anisocytosis 1+
[2025-02-14] MEDS: Lorazepam 2 MG/ML WCH Syringe 0.5 MG IV (16:26)
[2025-02-14 16:51] VITALS: BP 116/59; PULSE 109; RESP 13; TEMP 36.6; O2SAT 97
--- NOTE | 2025-02-14 17:01 | PCM.HP.STD ---
HPI - General General Date of Admission: 02/14/25 Date of Service: 02/14/25 Chief Complaint: Left lower extremity pain HPI Narrative BAHMAN MICHELE, is a 69-year-old female with a history of tobacco use, peripheral vascular disease, COPD, anxiety, hypertension who presented [facility] ED 02/14/2025 with left leg and foot pain. Patient underwent arteriogram February 11 with angioplasty of the left distal external iliac artery and proximal common femoral artery. She reports that she has had pain that is progressively worsened since then and is now unable to tolerate the pain prompting her to come to the ED. Heart rate 116 blood pressure 164/112, pulse ox 95% on 2 L O2. White blood cell count 13.1 with hemoglobin 9.3 and platelet count of 532. BMP with a chloride of [address] Lopez contacted and advised patient to be admitted with a vascular consult for possible intervention on Sunday. Hospitalist contacted for mission. Patient evaluated bedside, she reports the pain is just progressively worsened since the seventh point where she does not feel like she can stand it, the pain is primarily on her heel and it hurts to even rested on the bed and she also reports progressive discoloration. ROS otherwise negative PFSH Medical History GI bleed Decrease in appetite Wears hearing aid History of steroid therapy Arthritis PVD (peripheral vascular disease) Syncope Dietary restriction Gastric reflux Leg cramps Anxiety disorder Wears dentures Low iron High cholesterol History of ulceration On home oxygen therapy Post-menopausal Diverticulitis Back pain due to injury Chronic headaches History of stress test Wears glasses Chronic pain Shortness of breath Smoker History of cardiovascular stress test Leg pain S/P arteriogram of extremity Essential hypertension COPD (chronic obstructive pulmonary disease) Incisional hernia without mention of obstruction or gangrene Impaired fasting glucose History of pelvic hematoma Duodenal ulcer Clostridium difficile colitis Closed fracture of fifth metatarsal bone of left foot Injury, spleen, with capsular tears Pseudocyst of pancreas Peptic ulcer disease SBO (small bowel obstruction) H/O spleen injury Asthma Hyperlipemia Alcohol abuse Home Medications ?Medication ?Instructions ?Recorded ?Last Taken ?Type carvedilol 25 mg tablet 25 mg PO BID HEART 05/28/19 09/15/24 History spironolactone 25 mg tablet 25 mg PO DAILY BLOOD PRESSURE 05/28/19 09/14/24 History alprazolam 0.5 mg tablet 0.5 mg PO TID ANXIETY 05/08/21 05/07/25 History acetaminophen 500 mg tablet 1,000 mg PO Q6H PRN PAIN 07/19/22 09/14/24 History pantoprazole 40 mg tablet,delayed 40 mg PO BID GERD 30 days #60 tabs 10/12/22 09/14/24 Rx release guaifenesin 1,200 mg tablet, 1,200 mg PO BID PRN MUCOUS 07/02/23 06/10/24 History extended release 12 hr (Mucinex) lisinopril 40 mg tablet 40 mg PO QHS BLOOD PRESSURE 07/14/23 09/14/24 History aspirin 81 mg tablet,delayed 81 mg PO BREAKFAST HEART HEALTH 07/19/23 02/11/25 Rx release #0 tabs gabapentin 600 mg tablet 600 mg PO 4X/DAY NERVE PAIN 11/06/23 02/11/25 History tramadol 50 mg tablet 50 mg PO 4X/DAY PRN PAIN 11/06/23 09/15/24 History multivitamin with minerals-folic 1 tab PO DAILY supplement 01/30/24 09/15/24 History acid 80 mcg chewable tablet (Centrum Adult 50 Plus) atorvastatin 80 mg tablet 80 mg PO QHS CHOLESTEROL #90 tabs 02/27/24 09/14/24 Rx miscellaneous medical supply #1 ea 06/19/24 Unknown Rx ipratropium 0.5 mg-albuterol 3 mg 3 ml inhalation Q4H PRN PRN SOB 09/01/24 09/15/24 Rx (2.5 mg base)/3 mL nebulization &/OR WHEEZING #180 mL soln clopidogrel 75 mg tablet 75 mg PO DAILY BLOOD THINNER #90 12/11/24 02/11/25 Rx tabs albuterol sulfate 90 mcg/actuation 2 puff inhalation Q4H PRN 12/15/24 Unknown Rx aerosol inhaler (Ventolin HFA) shortness of breath or wheezing #18 grams fluticasone fur. 200 mcg-umeclid 1 inh inhalation DAILY ASTHMA #60 12/15/24 Unknown Rx 62.5 mcg-vilant 25 mcg ea inhalat.powder (Trelegy Ellipta) oxycodone 5 mg capsule 5 mg PO TID PRN pain 4 days #12 01/24/25 02/11/25 Rx caps hydrocodone-acetaminophen 5-325mg 1 tab PO TID 02/14/25 02/14/25 History 5mg-325mg Allergy/AdvReac Type Severity Reaction Status Date / Time amlodipine AdvReac Intermediate Nausea/Vom/ Verified 02/14/25 14:52 Diarrhea clonidine AdvReac Mild Nausea/Vom/ Verified 02/14/25 14:52 Diarrhea adhesive AdvReac Rash Verified 02/14/25 14:52 codeine AdvReac Nausea Verified 02/14/25 14:52 Family History Mother Heart disease Hypertension Diabetes Sister Hypertension Brother Hypertension Sister Hypertension Cervical cancer Brother Pancreatic cancer Surgical History History of appendectomy History of esophagogastroduodenoscopy (EGD) Hx of colonoscopy Hx of cervical spine surgery H/O: H/O colostomy History of hernia repair Social History household members: spouse housing: house Smoking Status: Current every day smoker tobacco type: cigarettes Electronic Cigarette Use: not used second hand exposure: Yes alcohol intake: current alcohol intake frequency: a few times a week substance use type: does not use caffeine: Yes what type of physical activity do you participate in: bicycling frequency: 1-2 times per week ROS ROS Narrative General: Denies fever/chills HENT: Denies headache, denies stuffy nose, denies sore throat EYES: Denies changes in vision Resp: Denies cough, denies shortness of breath Cardiac: Denies chest pain GI: Denies abdominal pain, denies changes in bowel, denies nausea/vomiting : Denies changes in urination Extremity: Denies swelling MSK: Denies weakness but has been having left lower extremity pain especially in her heel Neuro: Does not feel she has had sensation changes in left lower extremity Heme: Denies any bleeding or bruising Skin: Some color changes in left lower extremity Psychiatric: Patient distressed regarding her pain Vital Signs Vital Signs Vital Signs: 02/14/25 14:52 02/14/25 16:51 Temperature 98.4 F 97.8 F Temperature Source Oral Pulse Rate 116 H 109 H Respiratory Rate 16 13 Blood Pressure 164/112 H 116/59 L Blood Pressure Mean 129 78 Pulse Ox 95 97 Oxygen Delivery Method Nasal Cannula Oxygen Flow Rate (L/min) 2 Weight Weight: 77.1 kg Body Mass Index (BMI) 34.3 Physical Exam Narrative General: Alert, oriented, appears uncomfortable HEENT: Atraumatic, normocephalic Eyes: Anicteric, normal conjunctiva, extraocular movements grossly intact Neck: Supple Respiratory: No significant rhonchi, possibly some scattered wheezes, normal respiratory effort Cardiovascular: Regular rate and rhythm GI: Soft, nontender, nondistended Extremities: Left lower extremity slightly cooler than right, has decreased sensation in both lower extremities Musculoskeletal: Moving all extremities Neuro: No overt focal neurological deficits Skin: Does have some color changes on left greater than right Psych: Cooperative Results Lab / Micro Data 02/14/25 15:15 02/14/25 15:15 Labs: Laboratory Results - last 24 hr 02/14/25 15:15: WBC 13.1 H, RBC 3.77 L, Hgb 9.3 L, Hct 30.3 L, MCV 80.4 L, MCH 24.7 L, MCHC 30.7 L, RDW Std Deviation 58.9 H, RDW Coeff of Renea 20.2 H, Plt Count 532 H, MPV 9.4, Immature Gran % (Auto) 0.400, Neut % (Auto) 84.0 H, Lymph % (Auto) 9.0 L, [place] % (Auto) 5.9, Eos % (Auto) 0.2, Baso % (Auto) 0.5, Absolute Neuts (auto) 11.0 H, Absolute Lymphs (auto) 1.18, Nucleated RBC % 0, Anisocytosis 1+, PT 12.7, INR 0.9, APTT 31.3, Sodium 133, Potassium 4.8, Chloride 97 L, Carbon Dioxide 25.6, Anion Gap 11, BUN 13, Creatinine 0.72, Estim Creat Clear Calc 60.92, Est GFR (MDRD) Non-Af 91, BUN/Creatinine Ratio 17.4, Glucose 105 H, Calcium 9.5 Assessment & Plan Assessment/Plan (1) Pain of left leg: PLAN: Plan # Left limb pain in the setting of peripheral vascular disease -Concern for limb ischemia -Continue heparin drip - Aspirin, Plavix, statin - Vascular consult -Cardiac, heart healthy diet #Hx COPD -Continue home inhalers -Incentive spirometer #Tobacco use -Advise cessation - Patient does not want nicotine patch, she reports as of today she is quitting cold turkey #Depression/anxiety -Continue home medications #Hypertension - Blood pressure 116/59 - Will hold medications due to patient's critical limb ischemia to allow for pain control #GERD -Continue PPI #DVT ppx: Patient to be on heparin drip Mari Johnson MD Charges/Coding Visit Charges Inpatient E&M: 18353 Init Hosp L2
[2025-02-14 17:45] VITALS: BP 154/73; PULSE 108; RESP 18; TEMP 36.9; O2SAT 94
[2025-02-14 17:47] VITALS: BMI 46.9
[2025-02-14] MEDS: oxyCODONE 5 MG Tablet PO (18:48)
[2025-02-14] MEDS: Gabapentin 600 MG Tablet PO ×2 (18:49→22:01)
[2025-02-14] MEDS: 0.9% Saline Lock 10 ML Syringe IV (20:21)
[2025-02-14] MEDS: Morphine 2 MG/ML Syringe IV (20:21)
[2025-02-14 21:58] VITALS: BP 138/83; PULSE 100; RESP 18; TEMP 37.1; O2SAT 95
[2025-02-14] MEDS: ALPRAZolam 0.5 MG Tablet PO (22:01)
[2025-02-14] MEDS: Acetaminophen 500 MG Tablet 1000 MG PO (22:01)
[2025-02-14] MEDS: MELATONIN 3 MG TABLET PO (22:01)
[2025-02-14] MEDS: Pantoprazole Sodium 40 MG Tablet PO (22:01)
[2025-02-14] MEDS: Atorvastatin Calcium 80 MG Tablet PO (22:02)
[2025-02-14 22:22] LABS: Partial Thromboplast Time 143.2 Seconds (24.1-36.2)
[2025-02-15] VITALS (8 sets, daily range): BP systolic 106–126; BP diastolic 58–72; PULSE 90–111; RESP 16–20; TEMP 36.7–37; O2SAT 94–100
[2025-02-15] MEDS: oxyCODONE 5 MG Tablet PO ×4 (02:12→21:22)
[2025-02-15] MEDS: Acetaminophen 500 MG Tablet 1000 MG PO ×3 (05:35→21:22)
[2025-02-15] MEDS: ALPRAZolam 0.5 MG Tablet PO ×3 (05:35→21:22)
--- NOTE | 2025-02-15 07:10 | PN.HOSP_ITS ---
Reason for Visit Reason for Visit: Left leg pain Subjective Subjective Patient states that her leg is still fairly painful. Has significant vascular disease. Has had previous intervention. Started smoking again about a week ago realizes that this is problematic. Objective Data Objective Data Vital Signs: Vital Signs Temp Pulse Resp BP Pulse Ox O2 Del Method O2 Flow Rate 98.2 F 102 H 18 117/67 94 Nasal Cannula 2 02/15/25 03:00 02/15/25 03:00 02/15/25 03:00 02/15/25 03:00 02/15/25 03:00 02/15/25 03:00 02/15/25 03:00 FiO2 2 02/14/25 17:59 Oxygen Flow Rate (L/min) 2 Oxygen Delivery Method Nasal Cannula Weight: 74.2 kg Body Mass Index (BMI) 46.9 Intake & Output: Intake and Output for Last 24 Hours 02/13/25 02/14/25 02/15/25 23:59 23:59 23:59 Intake Total 191.87 / 311.87 180 / 180 Balance 191.87 / 311.87 180 / 180 Lab / Micro Data 02/14/25 15:15 02/14/25 15:15 Labs: Laboratory Results - last 24 hr 02/14/25 15:15: WBC 13.1 H, RBC 3.77 L, Hgb 9.3 L, Hct 30.3 L, MCV 80.4 L, MCH 24.7 L, MCHC 30.7 L, RDW Std Deviation 58.9 H, RDW Coeff of [place] 20.2 H, Plt Count 532 H, MPV 9.4, Immature Gran % (Auto) 0.400, Neut % (Auto) 84.0 H, Lymph % (Auto) 9.0 L, [place] % (Auto) 5.9, Eos % (Auto) 0.2, Baso % (Auto) 0.5, Absolute Neuts (auto) 11.0 H, Absolute Lymphs (auto) 1.18, Nucleated RBC % 0, Anisocytosis 1+, PT 12.7 02/14/25 15:15: PT Cancelled, INR 0.9 02/14/25 15:15: INR Cancelled, APTT 31.3 02/14/25 15:15: APTT Cancelled, Sodium 133, Potassium 4.8, Chloride 97 L, Carbon Dioxide 25.6, Anion Gap 11, BUN 13, Creatinine 0.72, Estim Creat Clear Calc 60.92, Est GFR (MDRD) Non-Af 91, BUN/Creatinine Ratio 17.4, Glucose 105 H, Calcium 9.5 02/14/25 21:35: APTT 143.2 H* Physical Exam Const alert, oriented x3, no apparent distress and well nourished; Negative for average body habitus or healthy appearing Constitutional Narrative: Upper middle-aged, white female, sitting up in bed, appears much older than stated age, does not appear toxic and currently does not appear uncomfortable HEENT head/scalp atraumatic and moist oral mucous membranes HEENT Narrative: Dentures in place, Mallampati is 2-3, no thrush Resp normal respiratory effort, no retractions, no use of accessory muscles and No clear to auscultation bilaterally Resp Narrative: Severely diminished diffusely with few scattered wheezes but otherwise clear Auscultation: wheezes; Negative for rales or rhonchi Cardio regular rate, regular rhythm, S1 normal heart sound, S2 normal heart sound, no murmurs, no rub, no gallops and no clicks GI normal to inspection, nondistended, normoactive bowel sounds, soft to palpation and non-tender Extremity Extremity Narrative: Distal left foot with a small necrotic area at the fifth digit distally, erythema on the lateral foot over the 4th and 5th and part of the third metatarsal, skin is peeling, no purulent drainage, pedal pulses are not palpable but cap refill is 1+, radial pulses are 2+, no cyanosis or clubbing noted Neuro oriented x3 and moves all extremities Neuro Narrative: Pain with movement of left foot Speech: speech normal Psych affect normal Psych Narrative: Eye contact is good and patient interacts appropriately, speech is mildly frustrated Assessment & Plan Assessment/Plan (1) Critical limb ischemia of left lower extremity: (2) Atherosclerosis of [place] arteries of extremities with rest pain, left leg: (3) Cellulitis of left foot: (4) Leukocytosis: PLAN: Plan Acute left lower extremity pain with history of severe peripheral vascular disease -Concern for acute limb ischemia -Follows with Dr. Lopez--> Case discussed with him in the emergency department - Continue heparin drip -Continue aspirin, Plavix, and statin -Revision with endarterectomy and patch of proximal graft done on 06/10/2024 -Vascular surgery consult pending--> possible intervention tomorrow Left foot cellulitis - Start Unasyn - Wound care consult - Complicated by poor blood flow - Looks like there may be some necrosis at the distal tip of the left fifth digit-->may need podiatry consult will see how foot looks tomorrow Leukocytosis - Patient with an erythematous area on the outside of her left foot - Will cover with Unasyn for now as it looks like could be cellulitic with some necrosis at the distal toe - may need podiatry involvement but will have vascular surgery evaluate first--> not sure if the blood flow is going to be adequate to even deliver antibiotics History of lower GI bleed/GERD -Colonoscopy 09/17/2024 showed nonbleeding internal hemorrhoids, patent end-to-end colonic colonic anastomosis with healthy appearing mucosa, one 5 mm polyp at the rectosigmoid colon that was removed, one 9 mm polyp in the cecum that was removed and segmental severe inflammation at the splenic flexure consistent with ischemic colitis that was biopsied. - Hemoglobin is stable - continue Protonix 40 mg p.o. twice daily - with stable hemoglobin can continue aspirin and Plavix Chronic anemia - Hemoglobin is stable - A baseline seems to run between 8.5 and 10 Chronic hypoxic respiratory failure secondary to COPD -At baseline is on 2 L nasal cannula -No respiratory symptoms other than baseline symptoms at presentation -Continue home inhalers - Continue Mucinex -Continue to monitor clinically -Continue outpatient follow-up with pulmonary medicine CAD/essential hypertension/hyperlipidemia - Restart home carvedilol - Continue home lisinopril - Continue home Aldactone - Restart as able - Continue home statin History of SBO with colectomy/history of large ventral hernia repair - No current issues - Ongoing outpatient follow-up as previously recommended Neuropathy/chronic pain -Continue home gabapentin Anxiety/depression -Continue home medication regimen Tobacco abuse - Patient started smoking about a week ago she reports to deal with the pain - Recommend cessation - Does not want a patch - realized that she needs to quit smoking but states she could start again Obesity -BMI 33 recommend weight loss -Complicates treatment, prognosis, outcomes DVT prophylaxis -Heparin drip Code Status -FULL Code Charges/Coding Visit Charges Inpatient E&M: 18363 Subs Hosp L2
[2025-02-15 07:11] LABS: Partial Thromboplast Time 53.7 Seconds (24.1-36.2)
[2025-02-15] MEDS: Budesonide Respules 0.5 MG/2 ML AMPUL.NEB. INHALATION ×2 (07:13→19:28)
[2025-02-15] MEDS: Ipratropium/Albuterol Sulfate 3 ML AMPUL.NEB INHALATION ×3 (07:13→19:28)
[2025-02-15] MEDS: Heparin Injection (Vial) 5,000 UNIT/ML VIAL IV (07:27)
[2025-02-15] MEDS: Senna/Docusate Sodium 1 Tablet 2 TABLET PO ×2 (08:37→21:22)
[2025-02-15] MEDS: Aspirin E.C. 81 MG Tablet PO (08:38)
[2025-02-15] MEDS: Pantoprazole Sodium 40 MG Tablet PO ×2 (08:38→21:22)
[2025-02-15] MEDS: Clopidogrel Bisulfate 75 MG Tablet PO (08:38)
[2025-02-15] MEDS: Gabapentin 600 MG Tablet PO ×4 (08:38→21:22)
[2025-02-15] MEDS: Morphine 2 MG/ML Syringe IV ×2 (11:08→17:21)
[2025-02-15 13:53] LABS: Partial Thromboplast Time 74.4 Seconds (24.1-36.2)
[2025-02-15] MEDS: Ampicillin/Sulbactam 3 GM in 0.9% Normal Saline (100mL MB+) 100 ML IV ×2 (17:09→23:15)
[2025-02-15 19:27] LABS: Partial Thromboplast Time 77.7 Seconds (24.1-36.2)
[2025-02-15] MEDS: Atorvastatin Calcium 80 MG Tablet PO (21:22)
[2025-02-15] MEDS: MELATONIN 3 MG TABLET PO (21:22)
[2025-02-15] MEDS: HEPARIN/D5w 25,000 UNITS 25,000 UNITS/250 ML IV.SOLN. 9 UNITS CONT INF (21:22)
[2025-02-15] MEDS: 0.9% Saline Lock 10 ML Syringe IV (23:15)
[2025-02-16] VITALS (8 sets, daily range): BP systolic 120–142; BP diastolic 60–119; PULSE 89–112; RESP 15–20; TEMP 36.6–37.1; O2SAT 95–100
[2025-02-16 04:54] LABS: Absolute Lymphocyte Count 2.09 X10^3/uL (0.83-4.51); Absolute Neutrophil Count 8.2 X10^3/uL (2.0-7.7); Basophil# 0.06 X10^3/uL; Basophil% 0.5 % (0-1); Eosinophil# 0.16 X10^3/uL; Eosinophils% 1.4 % (0-5); Hematocrit 25.6 % (37-47); Hemoglobin 7.8 g/dL (12.0-15.0); Lymphocyte # 2.09 X10^3/ul (0.83-4.51); Lymphocyte % 17.6 % (19-41); Mean Corp Hgb Conc 30.5 g/dL (32-36); Mean Corpuscular Hgb 24.5 pg (27.0-32.0); Mean Corpuscular Volume 80.3 fL (81-99); Mean Platelet Vol. 9.2 fl (6.2-12.0); Monocyte# 1.25 X10^3/uL; Monocyte% 10.5 % (0-10); NRBC Flagged by Analyzer 0.3 % (0-5); Neutrophil # 8.17 X10^3/uL (2.7-7.7); Platelet Count 478 K/mm3 (150-450); RBC Distribution Width CV 19.9 % (11.6-14.6); RBC Distribution Width SD 58.5 fl (35.1-43.9); Red Blood Count 3.19 M/mm3 (4.2-5.4); White Blood Count 11.9 K/mm3 (4.4-11.0)
[2025-02-16 05:08] LABS: Partial Thromboplast Time 75.3 Seconds (24.1-36.2)
[2025-02-16] MEDS: Acetaminophen 500 MG Tablet 1000 MG PO ×2 (05:13→22:13)
[2025-02-16] MEDS: ALPRAZolam 0.5 MG Tablet PO ×3 (05:13→22:28)
[2025-02-16] MEDS: Ampicillin/Sulbactam 3 GM in 0.9% Normal Saline (100mL MB+) 100 ML IV ×3 (05:13→18:55)
[2025-02-16] MEDS: oxyCODONE 5 MG Tablet PO ×4 (05:13→18:51)
[2025-02-16 05:33] LABS: ALB/GLOB Ratio 1.1 RATIO (0.9-2.4); AST(SGOT) 18 U/L (<=31); Alanine Aminotransfer ALT/SGPT 18 U/L (<=34); Albumin, Serum 3.1 g/dL (3.4-4.8); Alkaline Phosphatase 96 U/L (35-104); Anion Gap 11 (5-15); BUN 19 mg/dL (4-19); Calcium,Total 8.8 mg/dL (7.6-11.0); Carbon Dioxide 24.4 mmol/L (21.0-32.0); Chloride 98 mmol/L (98-108); Creatinine, Serum 0.91 mg/dL (0.70-1.20); EST Glomerular Filtration Rate 68 (>60); Estimated Creatinine Clearance 52.48 ml/min (50-250); Globulin 2.7 g/dL (2.2-4.2); Glucose 146 mg/dL (70-99); Phosphorus 4.5 mg/dL (2.7-4.5); Potassium 4.4 mmol/L (3.3-5.1); Protein, Total 5.8 g/dL (5.9-8.4); Sodium Level 133 mmol/L (133-145); Total Bilirubin 0.17 mg/dL (0.00-1.30)
[2025-02-16] MEDS: Ipratropium/Albuterol Sulfate 3 ML AMPUL.NEB INHALATION ×3 (07:41→19:09)
[2025-02-16] MEDS: Budesonide Respules 0.5 MG/2 ML AMPUL.NEB. INHALATION ×2 (07:42→19:09)
[2025-02-16] MEDS: Senna/Docusate Sodium 1 Tablet 2 TABLET PO ×2 (09:23→22:27)
[2025-02-16] MEDS: Gabapentin 600 MG Tablet PO ×4 (09:23→22:27)
[2025-02-16] MEDS: Pantoprazole Sodium 40 MG Tablet PO ×2 (09:23→22:12)
[2025-02-16] MEDS: Aspirin E.C. 81 MG Tablet PO (09:23)
[2025-02-16] MEDS: Clopidogrel Bisulfate 75 MG Tablet PO (09:24)
--- NOTE | 2025-02-16 11:18 | EX.PCM.CON.S ---
Assessment & Plan Assessment/Plan (1) Critical limb ischemia of left lower extremity: PLAN: -perfusion stable; had appearance of cellulitis upon admission which might explain why pain was worse -cont heparin, atbx -attempting to acquire OR time for later this week to move up bypass HPI Consult Data Date of Consult: 02/16/25 HPI Narrative HPI Narrative: BAHMAN MICHELE, is a 69 F who presents with worsened left foot pain with known PAD and multiple failed revascularization efforts. She is scheduled for left iliac-profunda bypass, femoral-PT bypass 02/26. Her pain has improved since admission/heparin. PFSH Medical History GI bleed Decrease in appetite Wears hearing aid History of steroid therapy Arthritis PVD (peripheral vascular disease) Syncope Dietary restriction Gastric reflux Leg cramps Anxiety disorder Wears dentures Low iron High cholesterol History of ulceration On home oxygen therapy Post-menopausal Diverticulitis Back pain due to injury Chronic headaches History of stress test Wears glasses Chronic pain Shortness of breath Smoker History of cardiovascular stress test Leg pain S/P arteriogram of extremity Essential hypertension COPD (chronic obstructive pulmonary disease) Incisional hernia without mention of obstruction or gangrene Impaired fasting glucose History of pelvic hematoma Duodenal ulcer Clostridium difficile colitis Closed fracture of fifth metatarsal bone of left foot Injury, spleen, with capsular tears Pseudocyst of pancreas Peptic ulcer disease SBO (small bowel obstruction) H/O spleen injury Asthma Hyperlipemia Alcohol abuse Home Medications ?Medication ?Instructions ?Recorded ?Last Taken ?Type carvedilol 25 mg tablet 25 mg PO BID HEART 05/28/19 09/15/24 History spironolactone 25 mg tablet 25 mg PO DAILY BLOOD PRESSURE 05/28/19 09/14/24 History alprazolam 0.5 mg tablet 0.5 mg PO TID ANXIETY 02/12/21 02/11/25 History acetaminophen 500 mg tablet 1,000 mg PO Q6H PRN PAIN 07/19/22 09/14/24 History pantoprazole 40 mg tablet,delayed 40 mg PO BID GERD 30 days #60 tabs 10/12/22 09/14/24 Rx release guaifenesin 1,200 mg tablet, 1,200 mg PO BID PRN MUCOUS 07/02/23 06/10/24 History extended release 12 hr (Mucinex) lisinopril 40 mg tablet 40 mg PO QHS BLOOD PRESSURE 07/14/23 09/14/24 History aspirin 81 mg tablet,delayed 81 mg PO BREAKFAST HEART HEALTH 07/19/23 02/11/25 Rx release #0 tabs gabapentin 600 mg tablet 600 mg PO 4X/DAY NERVE PAIN 11/06/23 02/11/25 History tramadol 50 mg tablet 50 mg PO 4X/DAY PRN PAIN 11/06/23 09/15/24 History multivitamin with minerals-folic 1 tab PO DAILY supplement 01/30/24 09/15/24 History acid 80 mcg chewable tablet (Centrum Adult 50 Plus) atorvastatin 80 mg tablet 80 mg PO QHS CHOLESTEROL #90 tabs 02/27/24 09/14/24 Rx miscellaneous medical supply #1 ea 06/19/24 Unknown Rx ipratropium 0.5 mg-albuterol 3 mg 3 ml inhalation Q4H PRN PRN SOB 09/01/24 09/15/24 Rx (2.5 mg base)/3 mL nebulization &/OR WHEEZING #180 mL soln clopidogrel 75 mg tablet 75 mg PO DAILY BLOOD THINNER #90 12/11/24 02/11/25 Rx tabs albuterol sulfate 90 mcg/actuation 2 puff inhalation Q4H PRN 12/15/24 Unknown Rx aerosol inhaler (Ventolin HFA) shortness of breath or wheezing #18 grams fluticasone fur. 200 mcg-umeclid 1 inh inhalation DAILY ASTHMA #60 12/15/24 Unknown Rx 62.5 mcg-vilant 25 mcg ea inhalat.powder (Trelegy Ellipta) hydrocodone-acetaminophen 5-325mg 1 tab PO TID pain 02/14/25 02/13/25 History 5mg-325mg Allergy/AdvReac Type Severity Reaction Status Date / Time amlodipine AdvReac Intermediate Nausea/Vom/ Verified 02/14/25 14:52 Diarrhea clonidine AdvReac Mild Nausea/Vom/ Verified 02/14/25 14:52 Diarrhea adhesive AdvReac Rash Verified 02/14/25 14:52 codeine AdvReac Nausea Verified 02/14/25 14:52 Family History Mother Heart disease Hypertension Diabetes Sister Hypertension Brother Hypertension Sister Hypertension Cervical cancer Brother Pancreatic cancer Surgical History History of appendectomy History of esophagogastroduodenoscopy (EGD) Hx of colonoscopy Hx of cervical spine surgery H/O: H/O colostomy History of hernia repair Social History household members: spouse housing: house Smoking Status: Current every day smoker tobacco type: cigarettes Electronic Cigarette Use: not used second hand exposure: Yes alcohol intake: current alcohol intake frequency: a few times a week substance use type: does not use caffeine: Yes what type of physical activity do you participate in: bicycling frequency: 1-2 times per week ROS Constitutional Constitutional: Denies chills, fever(s), frequent falls, lethargy or weakness Eyes Eyes: Denies blind spots, change in vision or loss of vision ENT HEENT: Denies bleeding gums, hoarseness or sore throat Cardiovascular Cardiovascular: Reports claudication; Denies abdominal pain, bluish discoloration of hand/feet, chest pain with activity, cold extremities, cyanosis, dyspnea on exertion, erythema on extremities, irregular heart rhythm, leg edema, leg ulcers, numbness in extremities or weakness in extremities Respiratory/Chest Respiratory/Chest: Reports cough and productive cough; Denies excessive phlegm production, shortness of breath at rest, shortness of breath with exertion or wheezing Gastrointestinal Gastrointestinal: Denies anorexia, change in stool character, constipation, diarrhea, melena or rectal bleeding Genitourinary Genitourinary: Denies dysuria or hematuria Musculoskeletal Musculoskeletal: Denies abnormal gait Integumentary Integumentary: Reports erythema and wounds; Denies non-healing lesions Neurologic Neurologic: Denies abnormal speech, focal weakness, headache(s), loss of vision, numbness, paresthesias or sensory deficit Hematologic/Lymphatic Hematologic/Lymphatic: Denies easy bleeding, easy bruising or lymphadenopathy Physical Exam Const alert, oriented x3, no apparent distress and healthy appearing General Appearance: cooperative; Negative for combative or lethargic Orientation / Consciousness: awake Exam Limitations: no limitations HEENT Head and Scalp: normocephalic and atraumatic Eyes EOMs intact bilaterally General Eye: normal appearance of both eyes Neck full ROM General: trachea midline Resp normal respiratory effort and no use of accessory muscles Effort and Inspection: Negative for labored, stridor or audible wheezes Cardio regular rate and regular rhythm Peripheral Pulses: brachial pulses present, radial pulses present and femoral pulses present Back/Spine Cervical Spine: cervical ROM normal Extremity full ROM, normal capillary refill and no clubbing, cyanosis or edema Skin no rashes or lesions noted Wound Narrative: multiple shallow skin cracks with eschar at base, base of 5th digit dry eschar Neuro oriented x3, CN's II-XII intact bilaterally, no focal motor deficits and no sensory deficits noted Psych thought process normal, cooperative, affect normal, speech normal and activity/motor behavior normal Lab / Micro Data 02/16/25 04:37 02/16/25 04:37 Labs: Laboratory Results - last 24 hr 02/15/25 13:24: APTT 74.4 H 02/15/25 19:05: APTT 77.7 H 02/16/25 04:37: WBC 11.9 H, RBC 3.19 L, Hgb 7.8 L, Hct 25.6 L, MCV 80.3 L, MCH 24.5 L, MCHC 30.5 L, RDW Std Deviation 58.5 H, RDW Coeff of Renea 19.9 H, Plt Count 478 H, MPV 9.2, Immature Gran % (Auto) 1.000 H, Neut % (Auto) 69.0, Lymph % (Auto) 17.6 L, [place] % (Auto) 10.5 H, Eos % (Auto) 1.4, Baso % (Auto) 0.5, Absolute Neuts (auto) 8.2 H, Absolute Lymphs (auto) 2.09, Nucleated RBC % 0.3, APTT 75.3 H, Sodium 133, Potassium 4.4, Chloride 98, Carbon Dioxide 24.4, Anion Gap 11, BUN 19, Creatinine 0.91, Estim Creat Clear Calc 52.48, Est GFR (MDRD) Non-Af 68, BUN/Creatinine Ratio 21.0 H, Glucose 146 H, Calcium 8.8, Phosphorus 4.5, Magnesium 2.0, Total Bilirubin 0.17, AST 18, ALT 18, Alkaline Phosphatase 96, Total Protein 5.8 L, Albumin 3.1 L, Globulin 2.7, Albumin/Globulin Ratio 1.1 Charges/Coding Visit Charges Inpatient E&M: 63575 Init Hosp L3
[2025-02-16] MEDS: Morphine 2 MG/ML Syringe IV ×3 (12:09→22:28)
--- NOTE | 2025-02-16 12:17 | CASEMGMT ---
MARGO VALLEJO Assessment Face to Face with patient for initial transition planning/care coordination assessment. MARGO VALLEJO introduced self and role at [facility], pt voices understanding. Pt is A&Ox4 and is resting comfortably in bed and is calm. Care providers, pharmacy, and demographics verified. LACE Strata: 3 PCP: Isaac Specialists: [facility], John (Vascular), [place] (Urology) Preferred Pharmacy: [facility] Insurance: [facility] D[facility] Prescription Benefit: Yes LNOK: Tasia Avendano (Daughter), Eloy (H), Fanny (Daughter) Living Arrangements: Pt lives with her and daughter (Fanny) in a 2 story home with a FFSU and 2 steps to enter ADLs/IADLs: Pt states that she is mainly independent and that her helps with showering as needed Transportation: Pt . Denies concerns DME: Home oxygen through [employer]. Verified by Angel that the pt's order states 2L continuous via [place]. Pt states that she has a concentrator, POC, and pulse ox. Pt's POC is in the room. Pt also has a shower chair, Grab bars, and FWW. HHC/SNF: Denies hx or needs Smoking: Pt states that after her previous DC that she returned home and continued smoking cigarettes. Pt states that she has now decided to quit cold turkey. Pt was offered resources for this but the pt denies. Pt states that she can do this herself. Pt?s goal: Home Plan: Anticipate eventual DC home with family once medically ready. Per Vascular, the pt is requiring intervention and surgery will be scheduled once there is OR availability. 6-Click score is 24. Follow for increased oxygen demands. Pt refuses the need for HH or OP Tx at this time. Pt denies further concerns. Report given to SALES TECHNICIAN HOME THEATER CM. Matias Skelton RN, CM
--- NOTE | 2025-02-16 13:38 | EKG12_ITS ---
Test Reason : ARRYTH Blood Pressure : */* mmHG Vent. Rate : 117 BPM Atrial Rate : 117 BPM P-R Int : 140 ms QRS Dur : 68 ms QT Int : 292 ms P-R-T Axes : 33 67 22 degrees QTcB Int : 407 ms Sinus tachycardia Cannot rule out Anterior infarct , age undetermined Abnormal ECG When compared with ECG of 14-Feb-2025 15:29, Premature atrial complexes are no longer Present Confirmed by Melquiades Bundy ([id number]), primer expeditor and drier DRISS GOMEZ ([id number]) on 02/17/2025 11:41:26 AM Referred By: BLANCA Confirmed By: Melquiades Bundy
[2025-02-16] MEDS: Carvedilol 25 MG Tablet PO (14:12)
--- NOTE | 2025-02-16 17:43 | PCM.PN.HOSP ---
Reason for Visit Reason for Visit: Diagnoses Elevated white blood cell count, unspecified (02/14/25) Atherosclerosis of [place] arteries of extremities with rest pain, left leg (02/14/25) Cellulitis of left lower limb (02/14/25) Pain in left leg (02/14/25) Subjective Subjective Patient was seen and examined today, I talked with vascular surgery about her care. Patient is currently receiving antibiotics and is on IV heparin, there is concern that she may have cellulitis in her left foot. I discussed this with vascular surgery. Vascular surgery has her on the surgery schedule for this for vascular intervention. Objective Data Objective Data Vital Signs: Vital Signs Temp Pulse Resp BP Pulse Ox O2 Del Method O2 Flow Rate 98.2 F 100 18 142/119 H 100 Nasal Cannula 3 02/16/25 15:30 02/16/25 15:30 02/16/25 15:30 02/16/25 15:30 02/16/25 15:30 02/16/25 17:05 02/16/25 17:05 FiO2 2 02/14/25 17:59 Oxygen Flow Rate (L/min) 3 Oxygen Delivery Method Nasal Cannula Weight: 74.2 kg Body Mass Index (BMI) 46.9 Intake & Output: Intake and Output for Last 24 Hours 02/14/25 02/15/25 02/16/25 23:59 23:59 23:59 Intake Total 191.87 / 311.87 1510.13 / 1570.13 516 / 516 Balance 191.87 / 311.87 1510.13 / 1570.13 516 / 516 Lab / Micro Data 02/16/25 04:37 02/16/25 04:37 Labs: Laboratory Results - last 24 hr 02/15/25 19:05: APTT 77.7 H 02/16/25 04:37: WBC 11.9 H, RBC 3.19 L, Hgb 7.8 L, Hct 25.6 L, MCV 80.3 L, MCH 24.5 L, MCHC 30.5 L, RDW Std Deviation 58.5 H, RDW Coeff of Renea 19.9 H, Plt Count 478 H, MPV 9.2, Immature Gran % (Auto) 1.000 H, Neut % (Auto) 69.0, Lymph % (Auto) 17.6 L, [place] % (Auto) 10.5 H, Eos % (Auto) 1.4, Baso % (Auto) 0.5, Absolute Neuts (auto) 8.2 H, Absolute Lymphs (auto) 2.09, Nucleated RBC % 0.3, APTT 75.3 H, Sodium 133, Potassium 4.4, Chloride 98, Carbon Dioxide 24.4, Anion Gap 11, BUN 19, Creatinine 0.91, Estim Creat Clear Calc 52.48, Est GFR (MDRD) Non-Af 68, BUN/Creatinine Ratio 21.0 H, Glucose 146 H, Calcium 8.8, Phosphorus 4.5, Magnesium 2.0, Total Bilirubin 0.17, AST 18, ALT 18, Alkaline Phosphatase 96, Total Protein 5.8 L, Albumin 3.1 L, Globulin 2.7, Albumin/Globulin Ratio 1.1 Physical Exam Const alert, oriented x3 and no apparent distress General Appearance: cooperative, well kempt and well developed Orientation / Consciousness: awake, oriented to person, oriented to place and oriented to time HEENT normocephalic, head/scalp atraumatic and moist oral mucous membranes Eyes PERRL, EOMs intact bilaterally and conjunctivae normal Neck supple, no JVD, thyroid normal and no carotid bruits General: trachea midline Resp normal respiratory effort, no retractions, no use of accessory muscles and clear to auscultation bilaterally Auscultation: Negative for rales, rhonchi or wheezes Cardio regular rate, regular rhythm, S1 normal heart sound, S2 normal heart sound, no murmurs, no rub and no gallops GI normal to inspection, nondistended, normoactive bowel sounds, soft to palpation, non-tender and non-distended Extremity Extremity Narrative: Patient has some mild redness to the lateral aspect of her left foot Skin Skin Narrative: Patient has an eschar near the fifth metatarsal area. Neuro oriented x3, CN's II-XII intact bilaterally, moves all extremities, no focal motor deficits and no sensory deficits noted Sensorium / Orientation: awake and alert Speech: speech normal Psych affect normal Assessment & Plan Assessment/Plan (1) Critical limb ischemia of left lower extremity: PLAN: Plan 1. Ischemia of the left lower leg secondary to severe peripheral vascular disease-vascular surgery is planning on intervention on of this week, continue IV heparin #2 cellulitis of the left foot-continue IV Unasyn #3 chronic obstructive pulmonary disease-patient tells this examiner that she is through with smoking, patient is currently on aerosol treatments #4 peripheral vascular disease-patient is currently on a heparin drip, Plavix and aspirin. In addition patient is taking statin. #5 chronic hypoxic respiratory failure secondary to COPD-patient's pulse ox will be monitored, oxygen will be adjusted as needed Total clinical time spent by myself addressing the patient's medical issues, reviewing all of her data, and collaborating with patient's care team: 35 minutes Charges/Coding Visit Charges Inpatient E&M: 16752 Subs Hosp L2
[2025-02-16] MEDS: 0.9% Saline Lock 10 ML Syringe IV ×2 (18:51→22:28)
[2025-02-16] MEDS: Atorvastatin Calcium 80 MG Tablet PO (22:12)
[2025-02-16] MEDS: MELATONIN 3 MG TABLET PO (22:28)
[2025-02-17] VITALS (9 sets, daily range): BP systolic 107–141; BP diastolic 62–113; PULSE 84–104; RESP 16–18; TEMP 36.5–36.9; O2SAT 94–98
[2025-02-17] MEDS: Ampicillin/Sulbactam 3 GM in 0.9% Normal Saline (100mL MB+) 100 ML IV ×4 (00:02→17:43)
[2025-02-17] MEDS: HEPARIN/D5w 25,000 UNITS 25,000 UNITS/250 ML IV.SOLN. 9 UNITS CONT INF (02:33)
[2025-02-17] MEDS: oxyCODONE 5 MG Tablet PO ×5 (03:07→21:17)
[2025-02-17] MEDS: Acetaminophen 500 MG Tablet 1000 MG PO ×3 (05:06→21:15)
[2025-02-17] MEDS: ALPRAZolam 0.5 MG Tablet PO ×3 (05:09→21:16)
[2025-02-17 06:04] LABS: Absolute Lymphocyte Count 1.76 X10^3/uL (0.83-4.51); Absolute Neutrophil Count 8.3 X10^3/uL (2.0-7.7); Basophil# 0.05 X10^3/uL; Basophil% 0.4 % (0-1); Eosinophil# 0.23 X10^3/uL; Hemoglobin 7.4 g/dL (12.0-15.0); Lymphocyte # 1.76 X10^3/ul (0.83-4.51); Lymphocyte % 15.1 % (19-41); Mean Corp Hgb Conc 30.8 g/dL (32-36); Mean Corpuscular Hgb 24.6 pg (27.0-32.0); Mean Corpuscular Volume 79.7 fL (81-99); Mean Platelet Vol. 9.7 fl (6.2-12.0); Monocyte# 1.19 X10^3/uL; Monocyte% 10.2 % (0-10); NRBC Flagged by Analyzer 0.3 % (0-5); Neutrophil % 71.4 % (47-70); Platelet Count 494 K/mm3 (150-450); RBC Distribution Width CV 19.9 % (11.6-14.6); RBC Distribution Width SD 56.7 fl (35.1-43.9); Red Blood Count 3.01 M/mm3 (4.2-5.4); White Blood Count 11.6 K/mm3 (4.4-11.0)
[2025-02-17 06:15] LABS: Partial Thromboplast Time 56.5 Seconds (24.1-36.2)
[2025-02-17] MEDS: Budesonide Respules 0.5 MG/2 ML AMPUL.NEB. INHALATION ×2 (06:40→19:12)
[2025-02-17] MEDS: Ipratropium/Albuterol Sulfate 3 ML AMPUL.NEB INHALATION ×3 (06:40→19:12)
[2025-02-17] MEDS: Aspirin E.C. 81 MG Tablet PO (08:31)
[2025-02-17] MEDS: Carvedilol 25 MG Tablet PO ×2 (08:31→16:54)
[2025-02-17] MEDS: Clopidogrel Bisulfate 75 MG Tablet PO (08:31)
[2025-02-17] MEDS: Pantoprazole Sodium 40 MG Tablet PO ×2 (08:32→21:16)
[2025-02-17] MEDS: Senna/Docusate Sodium 1 Tablet 2 TABLET PO (10:05)
[2025-02-17] MEDS: Gabapentin 600 MG Tablet PO ×4 (10:06→21:16)
--- NOTE | 2025-02-17 11:41 | WOUNDNOTE ---
Was asked to see patient for wounds to the left foot. there are some superficial dry fissures noted to the left lateral foot. no erythema noted. since areas are dry, will leave TAYLOR at this time. do not want to apply any moisture to these areas at this time. would prefer to keep dry. pt scheduled for a vascular procedure this . see wound photo.
--- NOTE | 2025-02-17 13:33 | WOUNDNOTE ---
wound photo: left lateral foot
--- NOTE | 2025-02-17 14:07 | CHAPLAIN ---
Type of Pastoral Visit _x__ Initial Visit ___ Follow-up Visit ___ On-call Visit ___ General Patient Visit ___ Spiritual Assessment ___ Family Conference ___ Bereavement ___ Rapid Response ___ Code Blue ___ Other (describe below) Pastoral Care Referral From _x__ Patient ___ Family ___ Nurse ___ Physician ___ Legal Instruments Examiner ___ Shipping Assistant ___ Other (describe below) Sacrament/Intervention _x__ Active listening ___ Anointing ___ Druze ___ Bereavement ___ Communion _x__ Radha exploration ___ _x__ Life review _x__ Prayer ___ Reconciliation ___ Sacrament of Sick _x__ Supportive presence ___ Wedding ___ Other (describe below) Pastoral Comments patient was eager to talk with the dye tank tender and expressed her gladness in that from several comments; pt has spiritual questions that she shared as conversation happened; pt is changing to a different confucianist since her old one closed; pt is looking forward to having relief from her pain in the foot; pt looks to God and her radha for help; pt asks for prayer and she asks for a return visit if possible;
--- NOTE | 2025-02-17 18:16 | PCM.PN.HOSP ---
Reason for Visit Reason for Visit: Diagnoses Elevated white blood cell count, unspecified (02/14/25) Atherosclerosis of [place] arteries of extremities with rest pain, left leg (02/14/25) Cellulitis of left lower limb (02/14/25) Pain in left leg (02/14/25) Subjective Subjective Patient was seen and examined today, she states she does not have as much foot pain today. I talked briefly with vascular surgery today, again surgical intervention is planned for this . Objective Data Objective Data Vital Signs: Vital Signs Temp Pulse Resp BP Pulse Ox O2 Del Method O2 Flow Rate 98.0 F 88 18 134/73 H 96 Nasal Cannula 2 02/17/25 17:53 02/17/25 17:53 02/17/25 17:53 02/17/25 17:53 02/17/25 17:53 02/17/25 17:53 02/17/25 17:53 FiO2 2 02/14/25 17:59 Oxygen Flow Rate (L/min) 2 Oxygen Delivery Method Nasal Cannula Weight: 74.2 kg Body Mass Index (BMI) 46.9 Intake & Output: Intake and Output for Last 24 Hours 02/15/25 02/16/25 02/17/25 23:59 23:59 23:59 Intake Total 1510.13 / 1570.13 1028 / 1028 630.55 / 630.55 Balance 1510.13 / 1570.13 1028 / 1028 630.55 / 630.55 Lab / Micro Data 02/17/25 05:10 02/16/25 04:37 Labs: Laboratory Results - last 24 hr 02/17/25 05:10: WBC 11.6 H, RBC 3.01 L, Hgb 7.4 L, Hct 24.0 L, MCV 79.7 L, MCH 24.6 L, MCHC 30.8 L, RDW Std Deviation 56.7 H, RDW Coeff of Renea 19.9 H, Plt Count 494 H, MPV 9.7, Immature Gran % (Auto) 0.900, Neut % (Auto) 71.4 H, Lymph % (Auto) 15.1 L, [place] % (Auto) 10.2 H, Eos % (Auto) 2.0, Baso % (Auto) 0.4, Absolute Neuts (auto) 8.3 H, Absolute Lymphs (auto) 1.76, Nucleated RBC % 0.3, APTT 56.5 H Physical Exam Narrative alert, oriented x3 and no apparent distress General Appearance: cooperative, well kempt and well developed Orientation / Consciousness: awake, oriented to person, oriented to place and oriented to time HEENT normocephalic, head/scalp atraumatic and moist oral mucous membranes Eyes PERRL, EOMs intact bilaterally and conjunctivae normal Neck supple, no JVD, thyroid normal and no carotid bruits General: trachea midline Resp normal respiratory effort, no retractions, no use of accessory muscles and clear to auscultation bilaterally Auscultation: Negative for rales, rhonchi or wheezes Cardio regular rate, regular rhythm, S1 normal heart sound, S2 normal heart sound, no murmurs, no rub and no gallops GI normal to inspection, nondistended, normoactive bowel sounds, soft to palpation, non-tender and non-distended Extremity Extremity Narrative: Patient has some mild redness to the lateral aspect of her left foot Skin Skin Narrative: Patient has an eschar near the fifth metatarsal area. There is a reddened area over the dorsum of the left foot proximal to the 4th and 5th toes, this area is cool to the touch also Neuro oriented x3, CN's II-XII intact bilaterally, moves all extremities, no focal motor deficits and no sensory deficits noted Sensorium / Orientation: awake and alert Speech: speech normal Psych affect normal Assessment & Plan Assessment/Plan (1) Cellulitis of left foot: (2) Critical limb ischemia of left lower extremity: PLAN: Plan 1. Ischemia of the left lower leg secondary to severe peripheral vascular disease-vascular surgery is planning on intervention on of this week, continue IV heparin #2 cellulitis of the left foot-continue IV Unasyn #3 chronic obstructive pulmonary disease-patient tells this examiner that she is through with smoking, patient is currently on aerosol treatments #4 peripheral vascular disease-patient is currently on a heparin drip, Plavix and aspirin. In addition patient is taking statin. #5 chronic hypoxic respiratory failure secondary to COPD-patient's pulse ox will be monitored, oxygen will be adjusted as needed Total clinical time spent by myself addressing the patient's medical issues, reviewing all of her data, and collaborating with patient's care team: 35 minutes Charges/Coding Visit Charges Inpatient E&M: 27582 Subs Hosp L2
[2025-02-17] MEDS: Atorvastatin Calcium 80 MG Tablet PO (21:16)
[2025-02-17] MEDS: MELATONIN 3 MG TABLET PO (21:16)
[2025-02-17] MEDS: 0.9% Saline Lock 10 ML Syringe IV (21:19)
[2025-02-18] VITALS (10 sets, daily range): BP systolic 107–143; BP diastolic 70–85; PULSE 84–102; RESP 15–20; TEMP 36.3–36.9; O2SAT 94–97
[2025-02-18] MEDS: Morphine 2 MG/ML Syringe IV ×2 (00:11→09:53)
[2025-02-18] MEDS: Ampicillin/Sulbactam 3 GM in 0.9% Normal Saline (100mL MB+) 100 ML IV ×5 (00:11→23:40)
[2025-02-18] MEDS: 0.9% Saline Lock 10 ML Syringe IV (00:11)
[2025-02-18] MEDS: oxyCODONE 5 MG Tablet PO ×5 (03:14→23:39)
[2025-02-18] MEDS: ALPRAZolam 0.5 MG Tablet PO ×3 (05:53→20:03)
[2025-02-18] MEDS: Acetaminophen 500 MG Tablet 1000 MG PO ×3 (05:54→22:13)
[2025-02-18 06:30] LABS: Partial Thromboplast Time 52.4 Seconds (24.1-36.2)
[2025-02-18] MEDS: Ipratropium/Albuterol Sulfate 3 ML AMPUL.NEB INHALATION ×2 (07:04→19:47)
[2025-02-18] MEDS: Budesonide Respules 0.5 MG/2 ML AMPUL.NEB. INHALATION ×2 (07:04→19:47)
[2025-02-18] MEDS: Carvedilol 25 MG Tablet PO ×2 (07:49→16:37)
[2025-02-18] MEDS: Heparin Injection (Vial) 5,000 UNIT/ML VIAL IV ×2 (07:50→22:11)
[2025-02-18] MEDS: Aspirin E.C. 81 MG Tablet PO (07:50)
[2025-02-18] MEDS: Pantoprazole Sodium 40 MG Tablet PO ×2 (07:50→20:02)
[2025-02-18] MEDS: Clopidogrel Bisulfate 75 MG Tablet PO (07:50)
[2025-02-18] MEDS: HEPARIN/D5w 25,000 UNITS 25,000 UNITS/250 ML IV.SOLN. 10 UNITS CONT INF (07:51)
[2025-02-18] MEDS: Gabapentin 600 MG Tablet PO ×4 (09:21→20:03)
--- NOTE | 2025-02-18 12:45 | PCM.PN.SRG ---
Subjective Subjective I saw Linda this afternoon, she was sitting up at the edge of the bed. She reports persistent pain in her L foot though improved from admission. She has no other complaints today. She states that she is definitely done smoking, has plans to continue with cessation. Objective Data Objective Data Vital Signs: Vital Signs Temp Pulse Resp BP Pulse Ox O2 Del Method O2 Flow Rate 97.4 F L 98 18 107/71 94 Nasal Cannula 2 02/18/25 09:52 02/18/25 09:52 02/18/25 09:52 02/18/25 09:52 02/18/25 09:52 02/18/25 09:52 02/18/25 08:19 FiO2 2 02/18/25 09:52 Oxygen Flow Rate (L/min) 2 Oxygen Delivery Method Nasal Cannula Weight: 163 lb 9.328 oz Body Mass Index (BMI) 46.9 Intake & Output: Intake and Output for Last 24 Hours 02/16/25 02/17/25 02/18/25 23:59 23:59 23:59 Intake Total 1028 / 1028 742.55 / 742.55 429.45 / 429.45 Balance 1028 / 1028 742.55 / 742.55 429.45 / 429.45 Lab / Micro Data 02/17/25 05:10 02/16/25 04:37 Labs: Laboratory Results - last 24 hr 02/18/25 05:33: APTT 52.4 H Physical Exam Const alert, oriented x3, no apparent distress and healthy appearing General Appearance: cooperative; Negative for combative or lethargic Orientation / Consciousness: awake Exam Limitations: no limitations HEENT Head and Scalp: normocephalic and atraumatic Eyes EOMs intact bilaterally General Eye: normal appearance of both eyes Neck full ROM General: trachea midline Resp normal respiratory effort and no use of accessory muscles Effort and Inspection: Negative for labored, stridor or audible wheezes Cardio regular rate and regular rhythm Peripheral Pulses: brachial pulses present, radial pulses present and femoral pulses present Back/Spine Cervical Spine: cervical ROM normal Extremity full ROM, normal capillary refill and no clubbing, cyanosis or edema Skin no rashes or lesions noted Wound Narrative: two shallow skin cracks with dry eschar at base and tip of 5th digit; skin peeling throughout L foot; no erythema, excess warmth, appropriately warm to palpation, sensory/motor intact Neuro oriented x3, CN's II-XII intact bilaterally, no focal motor deficits and no sensory deficits noted Psych thought process normal, cooperative, affect normal, speech normal and activity/motor behavior normal Assessment & Plan Assessment/Plan (1) Critical limb ischemia of left lower extremity: PLAN: She is scheduled for left iliac-profunda bypass, femoral-PT bypass in the OR tomorrow morning. Procedure details reviewed with patient including risks, all her questions were addressed and she remains agreeable to proceed. NPO after midnight. Continue ASA and Plavix, no need to hold for surgery. Continue heparin. Charges/Coding Visit Charges Inpatient E&M: 49233 Subs Hosp L1
--- NOTE | 2025-02-18 19:05 | PCM.PN.HOSP ---
Reason for Visit Reason for Visit: Diagnoses Elevated white blood cell count, unspecified (02/14/25) Atherosclerosis of [place] arteries of extremities with rest pain, left leg (02/14/25) Cellulitis of left lower limb (02/14/25) Pain in left leg (02/14/25) Subjective Subjective Patient was seen and examined today, she has no complaints of any shortness of breath. She is scheduled undergo vascular surgery tomorrow. Objective Data Objective Data Vital Signs: Vital Signs Temp Pulse Resp BP Pulse Ox O2 Del Method O2 Flow Rate 97.7 F L 102 H 18 143/85 H 97 Nasal Cannula 2 02/18/25 16:35 02/18/25 16:35 02/18/25 16:35 02/18/25 16:35 02/18/25 16:35 02/18/25 16:54 02/18/25 16:35 FiO2 2 02/18/25 09:52 Oxygen Flow Rate (L/min) 2 Oxygen Delivery Method Nasal Cannula Weight: 74.2 kg Body Mass Index (BMI) 46.9 Intake & Output: Intake and Output for Last 24 Hours 02/16/25 02/17/25 02/18/25 23:59 23:59 23:59 Intake Total 1028 / 1028 742.55 / 742.55 1321.62 / 1321.62 Balance 1028 / 1028 742.55 / 742.55 1321.62 / 1321.62 Lab / Micro Data 02/19/25 16:35 02/19/25 16:35 Labs: Laboratory Results - last 24 hr 02/18/25 05:33: APTT 52.4 H 02/18/25 13:40: APTT 80.0 H 02/18/25 17:35: Blood Type A POSITIVE, Antibody Screen NEGATIVE, Crossmatch See Detail Physical Exam Narrative alert, oriented x3 and no apparent distress General Appearance: cooperative, well kempt and well developed Orientation / Consciousness: awake, oriented to person, oriented to place and oriented to time HEENT normocephalic, head/scalp atraumatic and moist oral mucous membranes Eyes PERRL, EOMs intact bilaterally and conjunctivae normal Neck supple, no JVD, thyroid normal and no carotid bruits General: trachea midline Resp normal respiratory effort, no retractions, no use of accessory muscles and clear to auscultation bilaterally Auscultation: Negative for rales, rhonchi or wheezes Cardio regular rate, regular rhythm, S1 normal heart sound, S2 normal heart sound, no murmurs, no rub and no gallops GI normal to inspection, nondistended, normoactive bowel sounds, soft to palpation, non-tender and non-distended Extremity Extremity Narrative: Patient has some mild redness to the lateral aspect of her left foot Skin Skin Narrative: Patient has an eschar near the fifth metatarsal area. There is a reddened area over the dorsum of the left foot proximal to the 4th and 5th toes, this area is cool to the touch also Neuro oriented x3, CN's II-XII intact bilaterally, moves all extremities, no focal motor deficits and no sensory deficits noted Sensorium / Orientation: awake and alert Speech: speech normal Psych affect normal Assessment & Plan Assessment/Plan (1) Cellulitis of left foot: (2) Critical limb ischemia of left lower extremity: PLAN: Plan 1. Ischemia of the left lower leg secondary to severe peripheral vascular disease-vascular surgery is planning on intervention on of this week, continue IV heparin #2 cellulitis of the left foot-continue IV Unasyn #3 chronic obstructive pulmonary disease-patient tells this examiner that she is through with smoking, patient is currently on aerosol treatments #4 peripheral vascular disease-patient is currently on a heparin drip, Plavix and aspirin. In addition patient is taking statin. #5 chronic hypoxic respiratory failure secondary to COPD-patient's pulse ox will be monitored, oxygen will be adjusted as needed Total clinical time spent by myself addressing the patient's medical issues, reviewing all of her data, and collaborating with patient's care team: 25 minutes Charges/Coding Visit Charges Inpatient E&M: 75916 Subs Hosp L1
[2025-02-18] MEDS: Atorvastatin Calcium 80 MG Tablet PO (20:03)
[2025-02-18 20:49] LABS: Partial Thromboplast Time 51.5 Seconds (24.1-36.2)
[2025-02-19] VITALS (26 sets, daily range): BP systolic 97–185; BP diastolic 57–114; PULSE 74–105; RESP 11–23; TEMP 35.8–37.1; O2SAT 10–100; BMI 33.0
--- NOTE | 2025-02-19 02:24 | NURSING ---
Patient requesting breathing treatment. This RN contacted respiratory to complete her treatments.
[2025-02-19] MEDS: Ipratropium/Albuterol Sulfate 3 ML AMPUL.NEB INHALATION ×3 (02:40→19:25)
[2025-02-19 04:32] LABS: Absolute Lymphocyte Count 1.94 X10^3/uL (0.83-4.51); Absolute Neutrophil Count 7.7 X10^3/uL (2.0-7.7); Basophil# 0.06 X10^3/uL; Basophil% 0.5 % (0-1); Eosinophil# 0.34 X10^3/uL; Hematocrit 23.1 % (37-47); Lymphocyte # 1.94 X10^3/ul (0.83-4.51); Lymphocyte % 17.3 % (19-41); Mean Corp Hgb Conc 30.3 g/dL (32-36); Mean Corpuscular Hgb 24.1 pg (27.0-32.0); Mean Corpuscular Volume 79.7 fL (81-99); Mean Platelet Vol. 9.1 fl (6.2-12.0); Monocyte# 1.07 X10^3/uL; Monocyte% 9.5 % (0-10); NRBC Flagged by Analyzer 0.2 % (0-5); Neutrophil # 7.71 X10^3/uL (2.7-7.7); Neutrophil % 68.9 % (47-70); Platelet Count 465 K/mm3 (150-450); RBC Distribution Width CV 19.9 % (11.6-14.6); RBC Distribution Width SD 57.1 fl (35.1-43.9); White Blood Count 11.2 K/mm3 (4.4-11.0)
[2025-02-19 04:50] LABS: Anion Gap 10 (5-15); BUN 13 mg/dL (4-19); BUN/Creat Ratio 15.3 RATIO (10-20); Calcium,Total 8.7 mg/dL (7.6-11.0); Carbon Dioxide 24.3 mmol/L (21.0-32.0); Chloride 97 mmol/L (98-108); Creatinine, Serum 0.82 mg/dL (0.70-1.20); EST Glomerular Filtration Rate 78 (>60); Estimated Creatinine Clearance 58.24 ml/min (50-250); Glucose 100 mg/dL (70-99); Potassium 4.3 mmol/L (3.3-5.1); Sodium Level 131 mmol/L (133-145)
[2025-02-19 04:59] LABS: Partial Thromboplast Time 41.2 Seconds (24.1-36.2)
[2025-02-19 05:08] LABS: International Normalized Ratio 0.9; Prothrombin Time (Protime)PT. 12.4 SECONDS (11.7-14.9)
--- NOTE | 2025-02-19 05:55 | EKG12_ITS ---
Test Reason : PRE-OP Blood Pressure : */* mmHG Vent. Rate : 89 BPM Atrial Rate : 89 BPM P-R Int : 160 ms QRS Dur : 66 ms QT Int : 330 ms P-R-T Axes : 36 76 43 degrees QTcB Int : 401 ms Normal sinus rhythm Low voltage QRS Borderline ECG Confirmed by SHERIF OREILLY MD ([id number]), television news video editor MICHELLE JOSUE ([id number]) on 02/23/2025 9:31:56 AM Referred By: Confirmed By: SHERIF OREILLY MD
[2025-02-19] MEDS: Ampicillin/Sulbactam 3 GM in 0.9% Normal Saline (100mL MB+) 100 ML IV ×2 (06:12→18:59)
[2025-02-19] MEDS: Heparin Injection (Vial) 5,000 UNIT/ML VIAL IV (06:13)
[2025-02-19] MEDS: Budesonide Respules 0.5 MG/2 ML AMPUL.NEB. INHALATION ×2 (07:13→19:25)
--- NOTE | 2025-02-19 08:22 | PCM.PRE.AN2 ---
ASA Classification* ASA Classification ASA Classification: 4 Assessment & Plan Anesthesia* Anesthesia Assessment Anesthesia Assessment: Discussed sedation and/or anesthesia options, risks, benefits, and alternatives with patient/parents/legal guardian/POA. Questions invited. The patient/parents/legal guardian/POA seems to understand and agrees to proceed with anesthesia plan. Reviewed the physical assessment, medical history, allergy history and patient home medications list prior to surgery/procedure/anesthetic and documented any changes. Performed airway and anesthesia risk assessments. Anesthesia Type Anesthesia Type: General (Placement of Radial line) History Source History Obtained from:: Patient and Chart Anesthesia Focused Assessment* Temperature: 98.0 F Pulse Rate: 82 Blood Pressure: 106/89 Respiratory Rate: 18 Pulse Ox: 96 Oxygen Delivery Method: Nasal Cannula (2L) Oxygen Flow Rate (L/min): 2 Fraction of Inspired Oxygen (FIO2): 2 Airway Assessment Mouth opens: >3 cm Mallampati Score: II Teeth Condition: Dentures Focused Labs Anesthesia Preop lab: CBC WBC 11.2 K/mm3 (4.4-11.0) H 02/19/25 04:23 02/19/25 RBC 2.90 M/mm3 (4.2-5.4) L 02/19/25 04:23 02/19/25 Hgb 7.0 g/dL (12.0-15.0) L 02/19/25 04:23 02/19/25 Hct 23.1 % (37-47) L 02/19/25 04:23 02/19/25 Plt Count 465 K/mm3 (150-450) H 02/19/25 04:23 02/19/25 CHEMISTRY Potassium 4.3 mmol/L (3.3-5.1) 02/19/25 04:23 02/19/25 Sodium 131 mmol/L (133-145) L 02/19/25 04:23 02/19/25 Magnesium 2.0 mg/dL (1.5-2.2) 02/16/25 04:37 02/16/25 Phosphorus 4.5 mg/dL (2.7-4.5) 02/16/25 04:37 02/16/25 BUN 13 mg/dL (4-19) 02/19/25 04:23 02/19/25 Creatinine 0.82 mg/dL (0.70-1.20) 02/19/25 04:23 02/19/25 Glucose 100 mg/dL (70-99) H 02/19/25 04:23 02/19/25 TSH 0.31 uIU/mL (0.358-3.74) L 11/07/23 08:44 11/07/23 COAG PT 12.4 SECONDS (11.7-14.9) 02/19/25 04:23 02/19/25 Pre-Assessment Diagnosis/Proposed Procedure Planned Operative Procedure(s): Left Iliac-profunda bypass, femoral PT bypass Anesthesia History 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 When Was Last Pacemaker Check QUESTION #4 FULL TEXT: You/Your Family Experience fever (hyperthermia) with Anesthesia Last Oral Intake Last Oral intake: Last Oral Intake NPO since 00:00 02/19/25 08:03 Meds taken in AM with sips of water? Meds patient instructed to take am of surgery PONV PONV - political science professor: PONV - political science professor Female HX of Motion Sickness HX of N/V After Surgery Non-Smoker Duration of Surgery greater than 60 minutes Number of Risk Factors PONV Score Height & Weight Height & Weight: Anesthesia: Height & Weight Height 4 ft 11 in 02/19/25 08:03 Weight: 74.2 kg 02/19/25 08:03 Body Mass Index (BMI) 33.0 02/19/25 08:03 Respiratory Assessment Respiratory Assessment - political science professor: Respiratory Tract Infection Hx - political science professor Hx Respiratory Tract Infection No 06/05/24 09:54 STOP Sleep Apnea STOP Sleep Apnea - political science professor: STOP Sleep Apnea - political science professor Hx Hypertension Yes 02/16/25 14:12 Hx Sleep Apnea No 02/14/25 17:48 CPAP No 09/17/24 13:55 BIPAP No 09/15/24 14:30 Do you snore loudly (louder No 02/14/25 17:48 than talking or can be heard Do you often feel tired/ Yes 02/14/25 17:48 fatigued/ sleepy during daytime? Has anyone observed you stop No 02/14/25 17:48 breathing during sleep? STOP Results Positive 02/14/25 17:48 QUESTION #5 FULL TEXT : Do you snore loudly (louder than talking or can be heard through closed doors)? 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 Specify any problems Hx of Preganancy in last 3 No 02/14/25 17:48 Months Nurse Filling Out Transfusion [id number] 02/14/25 17:48 & Questions: Date: 02/14/25 02/14/25 17:48 Time: 17:50 02/14/25 17:48 Patient unable to answer at this time (ie. 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 INHALATION Q2H PRN PRN SOB &/OR WHEEZING Albuterol/Ipratropium 3 ml 02/14/25 18:15 02/19/25 07:13 Ipratropium/Albuterol Sulfate 3 Ml Ampul.Neb INHALATION 3 ml Q6HWA.RT LAMAR Administration Alprazolam 0.5 mg 02/14/25 22:00 02/19/25 06:04 Alprazolam 0.5 Mg Tablet PO Not Given TID LAMAR Aspirin 81 mg 02/15/25 08:00 02/18/25 07:50 Aspirin E.C. 81 Mg Tablet PO 81 mg BREAKFAST LAMAR Administration Atorvastatin Calcium 80 mg 02/14/25 22:00 02/18/25 20:03 Atorvastatin Calcium 80 Mg Tablet PO 80 mg QHS LAMAR Administration Budesonide 0.5 mg 02/14/25 18:15 02/19/25 07:13 Budesonide Respules 0.5 Mg/2 Ml Ampul.Neb. INHALATION 0.5 mg Q12H.RT LAMAR Administration Carvedilol 25 mg 02/16/25 14:00 02/18/25 16:37 Carvedilol 25 Mg Tablet PO 25 mg BIDCM LAMAR Administration Protocol Clopidogrel Bisulfate 75 mg 02/15/25 10:00 02/18/25 07:50 Clopidogrel Bisulfate 75 Mg Tablet PO 75 mg DAILY LAMAR Administration Gabapentin 600 mg 02/14/25 18:00 02/18/25 20:03 Gabapentin 600 Mg Tablet PO 600 mg 4X/DAY LAMAR Administration Heparin Sodium (Porcine) 0 unit 02/14/25 15:20 02/19/25 06:13 Heparin Injection (Vial) 5,000 Unit/Ml Vial IV 1,000 unit UD PRN Administration dose adjustment Protocol Heparin Sodium/Dextrose 25,000 units in 250 mls @ 11 mls/hr 02/14/25 15:15 02/19/25 06:13 CONT INF 1,100 units/hr .[id number] LAMAR 11 mls/hr Titration Protocol As Directed Sodium Chloride 250 mls @ 15 mls/hr 02/14/25 17:54 IV .[id number] PRN Saline Flush Sodium Chloride 250 mls @ 15 mls/hr 02/14/25 17:54 IV .[id number] PRN Additional IVPB Infusion Ampicillin Sodium/Sulbactam 112 mls @ 150 mls/hr 02/15/25 18:00 02/19/25 06:58 Sodium 3 gm/ Sodium Chloride IV Infused Q6 LAMAR Infusion Melatonin 3 mg 02/14/25 17:43 02/17/25 21:16 Melatonin 3 Mg Tablet PO 3 mg QHS PRN PRN Administration INSOMNIA Morphine Sulfate 2 - 4 mg 02/14/25 17:43 02/18/25 09:53 Morphine 2 Mg/Ml Syringe IV 2 mg Q3H PRN PRN Administration Pain Score 6-10 Ondansetron HCl 4 mg 02/14/25 17:43 Ondansetron 4 Mg/2 Ml Vial IV Q8H PRN PRN NAUSEA/VOMITING Oxycodone HCl 5 mg 02/14/25 17:43 02/18/25 23:39 Oxycodone 5 Mg Tablet PO 5 mg Q4H PRN PRN Administration Pain Score 4-10 Pantoprazole Sodium 40 mg 02/14/25 22:00 02/18/25 20:02 Pantoprazole Sodium 40 Mg Tablet PO 40 mg BID LAMAR Administration Senna/Docusate Sodium 2 tablet 02/14/25 22:00 02/18/25 20:03 Senna/Docusate Sodium 1 Tablet PO Not Given BID LAMAR Sodium Chloride 10 - 40 ml 02/14/25 17:54 02/18/25 00:11 0.9% Saline Lock 10 Ml Syringe IV 10 ml UD PRN Administration SALINE FLUSH PFSH Medical History GI bleed Decrease in appetite Wears hearing aid History of steroid therapy Arthritis PVD (peripheral vascular disease) Syncope Dietary restriction Gastric reflux Leg cramps Anxiety disorder Wears dentures Low iron High cholesterol History of ulceration On home oxygen therapy Post-menopausal Diverticulitis Back pain due to injury Chronic headaches History of stress test Wears glasses Chronic pain Shortness of breath Smoker History of cardiovascular stress test Leg pain S/P arteriogram of extremity Essential hypertension COPD (chronic obstructive pulmonary disease) Incisional hernia without mention of obstruction or gangrene Impaired fasting glucose History of pelvic hematoma Duodenal ulcer Clostridium difficile colitis Closed fracture of fifth metatarsal bone of left foot Injury, spleen, with capsular tears Pseudocyst of pancreas Peptic ulcer disease SBO (small bowel obstruction) H/O spleen injury Asthma Hyperlipemia Alcohol abuse Home Medications ?Medication ?Instructions ?Recorded ?Last Taken ?Type carvedilol 25 mg tablet 25 mg PO BID HEART 05/28/19 09/15/24 History spironolactone 25 mg tablet 25 mg PO DAILY BLOOD PRESSURE 05/28/19 09/14/24 History alprazolam 0.5 mg tablet 0.5 mg PO TID ANXIETY 02/12/21 02/11/25 History acetaminophen 500 mg tablet 1,000 mg PO Q6H PRN PAIN 07/19/22 09/14/24 History pantoprazole 40 mg tablet,delayed 40 mg PO BID GERD 30 days #60 tabs 10/12/22 09/14/24 Rx release guaifenesin 1,200 mg tablet, 1,200 mg PO BID PRN MUCOUS 07/02/23 06/10/24 History extended release 12 hr (Mucinex) lisinopril 40 mg tablet 40 mg PO QHS BLOOD PRESSURE 07/14/23 09/14/24 History aspirin 81 mg tablet,delayed 81 mg PO BREAKFAST HEART HEALTH 07/19/23 02/11/25 Rx release #0 tabs gabapentin 600 mg tablet 600 mg PO 4X/DAY NERVE PAIN 11/06/23 02/11/25 History tramadol 50 mg tablet 50 mg PO 4X/DAY PRN PAIN 11/06/23 09/15/24 History multivitamin with minerals-folic 1 tab PO DAILY supplement 01/30/24 09/15/24 History acid 80 mcg chewable tablet (Centrum Adult 50 Plus) atorvastatin 80 mg tablet 80 mg PO QHS CHOLESTEROL #90 tabs 02/27/24 09/14/24 Rx miscellaneous medical supply #1 ea 06/19/24 Unknown Rx ipratropium 0.5 mg-albuterol 3 mg 3 ml inhalation Q4H PRN PRN SOB 09/01/24 09/15/24 Rx (2.5 mg base)/3 mL nebulization &/OR WHEEZING #180 mL soln clopidogrel 75 mg tablet 75 mg PO DAILY BLOOD THINNER #90 12/11/24 02/11/25 Rx tabs albuterol sulfate 90 mcg/actuation 2 puff inhalation Q4H PRN 12/15/24 Unknown Rx aerosol inhaler (Ventolin HFA) shortness of breath or wheezing #18 grams fluticasone fur. 200 mcg-umeclid 1 inh inhalation DAILY ASTHMA #60 12/15/24 Unknown Rx 62.5 mcg-vilant 25 mcg ea inhalat.powder (Trelegy Ellipta) hydrocodone-acetaminophen 5-325mg 1 tab PO TID pain 02/14/25 02/13/25 History 5mg-325mg Allergy/AdvReac Type Severity Reaction Status Date / Time amlodipine AdvReac Intermediate Nausea/Vom/ Verified 02/19/25 08:25 Diarrhea clonidine AdvReac Mild Nausea/Vom/ Verified 02/19/25 08:25 Diarrhea adhesive AdvReac Rash Verified 02/19/25 08:25 codeine AdvReac Nausea Verified 02/19/25 08:25 Family History Mother Heart disease Hypertension Diabetes Sister Hypertension Brother Hypertension Sister Hypertension Cervical cancer Brother Pancreatic cancer Surgical History History of appendectomy History of esophagogastroduodenoscopy (EGD) Hx of colonoscopy Hx of cervical spine surgery H/O: H/O colostomy History of hernia repair Social History household members: spouse housing: house Smoking Status: Current every day smoker tobacco type: cigarettes Electronic Cigarette Use: not used second hand exposure: Yes alcohol intake: current alcohol intake frequency: a few times a week substance use type: does not use caffeine: Yes what type of physical activity do you participate in: bicycling frequency: 1-2 times per week Addt'l Information Additional Findings: EKG Sinus Tach Review of Systems (Anesthesia) ROS Narrative System reviewed and no additional complaints, except as documented. Physical Exam Const alert and oriented x3 Resp normal respiratory effort and normal air movement Cardio regular rhythm Cardio Narrative: Tachicardic Neuro oriented x3 and moves all extremities
[2025-02-19] MEDS: Heparin 10,000 UNITS/10 ML Vial 10000 UNITS ×2 (12:10→14:25)
[2025-02-19 14:09] LABS: Hematocrit 24.5 % (37-47); Hemoglobin 7.9 g/dL (12.0-15.0)
[2025-02-19 15:33] LABS: ACT Activated Clotting Time 228 sec (74-137)
[2025-02-19 15:33] LABS: ACT Activated Clotting Time 245 sec (74-137)
[2025-02-19 15:33] LABS: ACT Activated Clotting Time 245 sec (74-137)
[2025-02-19 15:33] LABS: ACT Activated Clotting Time 250 sec (74-137)
[2025-02-19 15:33] LABS: ACT Activated Clotting Time 233 sec (74-137)
--- NOTE | 2025-02-19 15:56 | CHAPLAIN ---
Type of Pastoral Visit ___ Initial Visit ___ Follow-up Visit ___ On-call Visit ___ General Patient Visit ___ Spiritual Assessment ___ Family Conference ___ Bereavement ___ Rapid Response ___ Code Blue ___ Other (describe below) Pastoral Care Referral From _x__ Patient ___ Family ___ Nurse ___ Physician ___ Shoe Parts Caser ___ Surface Ship Usw Supervisor ___ Other (describe below) Sacrament/Intervention ___ Active listening ___ Anointing ___ Pentecostal ___ Bereavement ___ Communion ___ Radha exploration ___ ___ Life review ___ Prayer ___ Reconciliation ___ Sacrament of Sick ___ Supportive presence ___ Wedding ___ Other (describe below) Pastoral Comments patient is having surgery today and is not available for spiritual care encounter
--- NOTE | 2025-02-19 16:24 | PCM.OPRPT ---
Operative Report (Standard) Operative Information Date of Procedure: 02/19/25 Pre-Operative Diagnosis: Atherosclerosis with rest pain of the left lower extremity Post-Operative Diagnosis: Same Surgery/Procedure Performed: Left external iliac to profunda bypass with cadaver femoral-popliteal artery Left femoral to posterior tibial bypass with PTFE and Skelton cuff kennel manager dog track: Yes Safety Pin Assembling Machine Operator: Bibiana Asif Tasks completed by program services assistant: Opening, Closing, Opening & closing, Hemostasis: Tie, Hemostasis: Electrocautery and Retracting Type of Anesthesia: General RN Documented Start/Stop Times: Operation Date: 02/19/25 09:15 Case Time Into Pre-Op 02/19/25 08:20 Anesthesia Start 02/19/25 09:20 Into Room 02/19/25 09:20 Procedure Start 02/19/25 10:10 Procedure End 02/19/25 16:20 Procedure Start Time: 10:00 Procedure Stop Time: 16:15 Select all DRAINS/GRAFTS/IMPLANTS that apply: Graft Graft details: Cadaver femoral-popliteal artery [place] 6 mm ringed PTFE graft Estimated Blood Loss: 800 Specimen collected: No Description of surgery: HPI: Patient is a 69-year-old female with a history of multiple left lower extremity revascularizations and who currently has severe arterial insufficiency with rest pain and multilevel occlusions. She has a mid common femoral artery stenosis, occlusion of the profunda origin with reconstitution of secondary branches, long segment occlusion of her SFA with below the knee popliteal reconstitution. She presents now for revascularization with planned bypass from external iliac artery to the profunda secondary branch that is large caliber as well as bypass from either augustine femoral vessels or from the iliofemoral bypass to the posterior tibial artery. A modifier 22 will be applied given the redo nature of both the femoral and distal target surgical marie adding approximately 1 and half hours of extra operative time. Description of procedure: Upon obtaining informed consent and verification correct patient procedure and site the patient was taken to the operating where she was placed under general anesthesia. She was then positioned prepped and draped in usual sterile fashion a timeout was performed. The prior femoral incision which was oblique in orientation was opened with 10 blade and Bovie electrocautery was dissect down through the subcutaneous tissue until the prior sartorius flap was encountered. At this point self-retaining retractors were put in position and dissection was then carried along the medial aspect of the sartorius flap and mobilizing this laterally exposing the femoral vessels. Once the common femoral artery was visualized sharp dissection was used to dissect free through very dense scar tissue cephalad up to the inguinal ligament which was then freed along its inferior border and and retracted cephalad. Further dissection was carried along the distal external iliac artery with significant scar encountered from her prior endarterectomy and bypass procedures. We ultimately were able to develop a safe plane surrounding the distal external iliac artery and dissected free circumferentially with great care taken to avoid injury to the adjacent vein. Once we had the vessel mobilized a sufficient distance superior to the stenosis where there is a brisk pulse we then used a right angle to place a vessel loop. Dissection was then carried distally to the point where the posterior profunda branch which was the only outflow of the iliac and common femoral was encountered and a right angle was used to place vessel loop just cephalad to this branch. Further dissection was then carried distally following the scar of the prior profunda endarterectomy until we encountered relatively undisturbed tissue planes at the bifurcation of the profunda and to its secondary branches. These appear to be free of any significant atherosclerosis so both of the more dominant branches were dissected free and a right angle used to place a vessel loop. Next a longitudinal incision was made on the medial aspect of the calf at the site of her prior incision for her femoral popliteal bypass and vein harvest. Again dense scar was encountered which we were able to dissect through with Bovie down to the level of the fascia which was then incised and self-retaining retractors placed in the wound. Further dissection was carried to the soleus muscle which was detached from its insertion and the tibia and mobilized posteriorly until the posterior tibial artery was visualized. At this point sharp dissection was dissected free proximal distal and a right angle used to place a vessel loop. The cadaver femoral-popliteal artery was then thawed per senior embedded software engineer's instructions. A Moni tunneler was used to tunnel subcutaneously from the femoral incision to the lower leg incision and the patient was then heparinized allowed to circulate for 3 minutes. The distal external iliac artery and mid external iliac artery were then occluded with atraumatic clamps above the area of the known stenosis. A longitudinal arteriotomy was created with 11 blade extended the Loera scissors. The cadaver graft was then beveled to match the arteriotomy and anastomosis performed using a 6-0 Prolene in a running fashion. After completing suture line the vessel were flushed into the graft and satisfactory stasis was noted and there was brisk pulsatile flow. Surgicel topical hemostatic was applied to the suture line and the pain marked to maintain orientation. The secondary profunda branches were then occluded with Vesseloops and longitudinal arteriotomy created with an 11 blade on the dominant vessel and extended with Loera scissors. There was some residual dissection flap from her prior inadvertent profunda access and closure device which was part of the inciting events of her left lower extremity ischemia. This took some attention to delineate true from false lumen and ultimately were able to endarterectomized the distal remaining portion of the chronic dissection flap with adequate visualization of the outflow into the true lumen. The cadaver was then cut the length and beveled to match the arteriotomy and anastomosis performed using a 6-0 Prolene in a running fashion. Prior to completing suture line the vessels are backbled and after completing suture line clamps removed and satisfactory stasis was noted. There is a palpable pulse in the graft as well as in the outflow vessel and satisfactory Doppler signal through the graft and into the profunda branches. A 6 mm x 50 [place] propatent PTFE graft was then brought in the field and pulled through the tunneler tunneling sheath withdrawn. The new cadaver graft was then occluded with atraumatic clamps and longitudinal arteriotomy created with a lumbar length send with Loera scissors. The [place] graft was then beveled to match the arteriotomy and anastomosis and forming a 5-0 Prolene in a running fashion. After completing suture line the vessels were flushed and the graft with brisk pulsatile flow observed. The graft was then occluded with an atraumatic clamp and our attention turned to the posterior tibial artery. Given the size discrepancy from the PTFE to the augustine vessel a distal calf was fashioned from the remaining cadaver femoral-popliteal artery. A longitudinal arteriotomy was created with an 11 blade and extended with Loera scissors and the posterior tibial artery. The cadaver cuff was then fashioned and Skelton cuff configuration and anastomosis performed with a 6-0 Prolene in a running fashion. Next the PTFE was cut to length and beveled to match the cuff and anastomosis performed using a 5-0 Prolene performed. Prior to implant suture line the vessels were backbled and after completing suture line clamps removed and satisfactory stasis was noted. There is a brisk pulse in the cuff in the outflow vessel and satisfactory Doppler signals. Heparin was then reversed with protamine and the incision inspected for hemostasis. There is a fair amount of ooze from multiple surfaces including from some of the needle holes in the PTFE suture lines. Surgicel topical hemostatic and Hemoblast topical hemostatic were applied ultimately with satisfactory stasis observed. Given her high risk for wound complications axial fill was then placed in both surgical marie deep at the vessel level and then superficially just below the skin. The distal incision was closed with 2-0 Vicryl followed by interrupted 3-0 nylon in the skin. The proximal incision was closed with 2-0 Vicryl anchoring the sartorius muscle back medially to cover the vessels and graft. This was followed by 3-0 Vicryl and 4 Monocryl and then Prineo for the skin. Prevena wound VAC was applied to the groin incision. The patient was then awakened from anesthesia taken to the recovery room in anticipated admission to the intensive care unit for hemodynamic and vascular monitoring. Surgical Findings: See above Complications Complications: No
--- NOTE | 2025-02-19 16:33 | PCM.POST.ANE ---
Anesthesia: Postop Eval I Current Vital Signs Temperature: 96.4 F Pulse Rate: 103 Blood Pressure: 179/97 Respiratory Rate: 20 Pulse Ox: 10 Oxygen Delivery Method: Venturi Mask Oxygen Flow Rate (L/min): 8 Assessment Airway patent: Yes Spontaneous unlabored respirations: Yes Mental status: Awake and Calm nausea: No Vomiting: No Anesthesia Complication: No Fluid Hydration Crystalloid volume administer (ml): 3,500 Total IV fluid infused: 3,500 Progress Note Anesthesia document: Postop Eval 1 completed: Yes
--- NOTE | 2025-02-19 16:35 | RAD_ITS ---
PROCEDURE: CHEST 1 VIEW (PORTABLE) 02/19/2025 REASON FOR EXAM: POST-OP TECHNIQUE: Frontal view of the chest. COMPARISON: None FINDINGS: Hardware: Right central venous catheter with the tip in the right atrium. Heart: Heart size is mildly enlarged. Lungs: Patchy opacities in the lung base, compatible with atelectasis. No pneumothorax. No pleural effusion. Bones: The bones are unremarkable. Other: RAD/Chest 1 View (Portable) IMPRESSION: No Acute Findings. Reading Location: [facility]
[2025-02-19 17:05] LABS: Absolute Lymphocyte Count 0.71 X10^3/uL (0.83-4.51); Absolute Neutrophil Count 15.5 X10^3/uL (2.0-7.7); Basophil# 0.06 X10^3/uL; Basophil% 0.4 % (0-1); Eosinophil# 0.02 X10^3/uL; Eosinophils% 0.1 % (0-5); Hematocrit 32.5 % (37-47); Hemoglobin 10.4 g/dL (12.0-15.0); Lymphocyte # 0.71 X10^3/ul (0.83-4.51); Lymphocyte % 4.3 % (19-41); Mean Corpuscular Hgb 25.8 pg (27.0-32.0); Mean Corpuscular Volume 80.6 fL (81-99); Mean Platelet Vol. 9.3 fl (6.2-12.0); Monocyte# 0.19 X10^3/uL; Monocyte% 1.1 % (0-10); NRBC Flagged by Analyzer 0.1 % (0-5); Neutrophil # 15.51 X10^3/uL (2.7-7.7); Neutrophil % 92.8 % (47-70); Platelet Count 404 K/mm3 (150-450); RBC Distribution Width CV 18.1 % (11.6-14.6); RBC Distribution Width SD 53.1 fl (35.1-43.9); Red Blood Count 4.03 M/mm3 (4.2-5.4); White Blood Count 16.7 K/mm3 (4.4-11.0)
[2025-02-19 17:11] LABS: Anion Gap 9 (5-15); BUN 10 mg/dL (4-19); BUN/Creat Ratio 15.2 RATIO (10-20); Calcium,Total 8.2 mg/dL (7.6-11.0); Carbon Dioxide 23.9 mmol/L (21.0-32.0); Chloride 103 mmol/L (98-108); Creatinine, Serum 0.65 mg/dL (0.70-1.20); EST Glomerular Filtration Rate 95 (>60); Glucose 155 mg/dL (70-99); Potassium 4.6 mmol/L (3.3-5.1); Sodium Level 136 mmol/L (133-145)
--- NOTE | 2025-02-19 17:24 | POSTOPAN2_ITS ---
Anesthesia Postop Eval I Sum Postop Eval Completion status Anesthesia document: Postop Eval 1 completed: Yes Anesthesia Postop Eval I Summary Anesthesia Postop Eval I Summary: Anesthesia Postop Eval I: Assessment Summary Airway patent Yes 02/19/25 16:34 [email or web address] Spontaneous unlabored Yes 02/19/25 16:34 [email or web address] respirations Mental status Awake,Calm 02/19/25 16:34 [email or web address] nausea No 02/19/25 16:34 [email or web address] Vomiting No 02/19/25 16:34 [email or web address] Anesthesia Postop Eval I: Fluid Summary Crystalloid volume administer 3,500 02/19/25 16:34 [email or web address] (ml) Colloids volume administered ( ml) Blood Product volume administered (ml) Total IV fluid infused 3,500 02/19/25 16:34 [email or web address] Anesthesia Postop Eval I: Summary Notes Anesthesia Complication No 02/19/25 16:34 [email or web address] Anesthesia Complication Comment: Post-operative progress note Anesthesia: Postop Eval II Evaluation Mental status: Awake and Calm Pain Level: 2 nausea: No Vomiting: No Progress Note Post-operative progress note: Patient was given 10 mg x2 and 20 mg x1 of labetalol Post op for BP >160 Complications Anesthesia Complication: No
--- NOTE | 2025-02-19 17:24 | PCM.POSTANE2 ---
Anesthesia Postop Eval I Sum Postop Eval Completion status Anesthesia document: Postop Eval 1 completed: Yes Anesthesia Postop Eval I Summary Anesthesia Postop Eval I Summary: Anesthesia Postop Eval I: Assessment Summary Airway patent Yes 02/19/25 16:34 [email or web address] Spontaneous unlabored Yes 02/19/25 16:34 [email or web address] [email or web address] respirations Mental status Awake,Calm 02/19/25 16:34 [email or web address] nausea No 02/19/25 16:34 [email or web address] Vomiting No 02/19/25 16:34 [email or web address] [email or web address] Anesthesia Postop Eval I: Fluid Summary Crystalloid volume administer 3,500 02/19/25 16:34 [email or web address] (ml) Colloids volume administered ( ml) Blood Product volume administered (ml) Total IV fluid infused 3,500 02/19/25 16:34 [email or web address] Anesthesia Postop Eval I: Summary Notes Anesthesia Complication No 02/19/25 16:34 [email or web address] Anesthesia Complication Comment: Post-operative progress note Anesthesia: Postop Eval II Evaluation Mental status: Awake and Calm Pain Level: 2 nausea: No Vomiting: No Progress Note Post-operative progress note: Patient was given 10 mg x2 and 20 mg x1 of labetalol Post op for BP >160 Complications Anesthesia Complication: No
--- NOTE | 2025-02-19 18:28 | PN.HOSP_ITS ---
Reason for Visit Reason for Visit: Diagnoses Elevated white blood cell count, unspecified (02/14/25) Atherosclerosis of [place] arteries of extremities with rest pain, left leg (02/14/25) Cellulitis of left lower limb (02/14/25) Pain in left leg (02/14/25) Subjective Subjective Patient was seen and examined today, I talked with vascular surgery about her care, she underwent surgery today-left external iliac to profunda bypass with cadaver femoral-popliteal artery. Patient received 2 units of packed red blood cells-the etiology of the anemia is unknown at this time. CBC will be repeated in the morning Objective Data Objective Data Vital Signs: Vital Signs Temp Pulse Resp BP Pulse Ox O2 Del Method O2 Flow Rate 97.3 F L 78 16 153/74 H 98 Nasal Cannula 2 02/19/25 17:45 02/19/25 17:45 02/19/25 17:45 02/19/25 17:45 02/19/25 17:45 02/19/25 18:00 02/19/25 18:00 FiO2 2 02/19/25 08:27 Oxygen Flow Rate (L/min) 2 Oxygen Delivery Method Nasal Cannula Weight: 74.2 kg Body Mass Index (BMI) 33.0 Intake & Output: Intake and Output for Last 24 Hours 02/17/25 02/18/25 02/19/25 23:59 23:59 23:59 Intake Total 742.55 / 742.55 1789.87 / 1789.87 2303.67 / 2303.67 Balance 742.55 / 742.55 1789.87 / 1789.87 2303.67 / 2303.67 Lab / Micro Data 02/19/25 16:35 02/19/25 16:35 Labs: Laboratory Results - last 24 hr 02/18/25 17:35: Blood Type A POSITIVE, Antibody Screen NEGATIVE, Crossmatch See Detail 02/18/25 20:22: APTT 51.5 H 02/19/25 04:23: WBC 11.2 H, RBC 2.90 L, Hgb 7.0 L, Hct 23.1 L, MCV 79.7 L, MCH 24.1 L, MCHC 30.3 L, RDW Std Deviation 57.1 H, RDW Coeff of Renea 19.9 H, Plt Count 465 H, MPV 9.1, Immature Gran % (Auto) 0.800, Neut % (Auto) 68.9, Lymph % (Auto) 17.3 L, [place] % (Auto) 9.5, Eos % (Auto) 3.0, Baso % (Auto) 0.5, Absolute Neuts (auto) 7.7, Absolute Lymphs (auto) 1.94, Nucleated RBC % 0.2, PT 12.4, INR 0.9, APTT 41.2 H, Sodium 131 L, Potassium 4.3, Chloride 97 L, Carbon Dioxide 24.3, Anion Gap 10, BUN 13, Creatinine 0.82, Estim Creat Clear Calc 58.24, Est GFR (MDRD) Non-Af 78, BUN/Creatinine Ratio 15.3, Glucose 100 H, Calcium 8.7 02/19/25 11:21: Activated Clotting Time 228 H 02/19/25 11:59: Activated Clotting Time 233 H 02/19/25 12:36: Activated Clotting Time 245 H 02/19/25 13:14: Activated Clotting Time 245 H 02/19/25 13:51: Activated Clotting Time 250 H 02/19/25 14:02: Hgb 7.9 L, Hct 24.5 L 02/19/25 16:35: WBC 16.7 H, RBC 4.03 L, Hgb 10.4 L, Hct 32.5 L, MCV 80.6 L, MCH 25.8 L, MCHC 32.0 D, RDW Std Deviation 53.1 H, RDW Coeff of Renea 18.1 H, Plt Count 404, MPV 9.3, Immature Gran % (Auto) 1.300 H, Neut % (Auto) 92.8 H, Lymph % (Auto) 4.3 L, [place] % (Auto) 1.1, Eos % (Auto) 0.1, Baso % (Auto) 0.4, Absolute Neuts (auto) 15.5 H, Absolute Lymphs (auto) 0.71 L, Nucleated RBC % 0.1, Sodium 136, Potassium 4.6, Chloride 103, Carbon Dioxide 23.9, Anion Gap 9, BUN 10, C reatinine 0.65 L, Estim Creat Clear Calc 59.70, Est GFR (MDRD) Non-Af 95, BUN/Creatinine Ratio 15.2, Glucose 155 H, Calcium 8.2 Radiography Diagnostic Testing: Radiology Impression Chest X-Ray 02/19/25 16:35 IMPRESSION: No Acute Findings. Reading [facility] Physical Exam Narrative alert, oriented x3 and no apparent distress General Appearance: cooperative, well kempt and well developed Orientation / Consciousness: awake, oriented to person, oriented to place and oriented to time HEENT normocephalic, head/scalp atraumatic and moist oral mucous membranes Eyes PERRL, EOMs intact bilaterally and conjunctivae normal Neck supple, no JVD, thyroid normal and no carotid bruits General: trachea midline Resp normal respiratory effort, no retractions, no use of accessory muscles and clear to auscultation bilaterally Auscultation: Negative for rales, rhonchi or wheezes Cardio regular rate, regular rhythm, S1 normal heart sound, S2 normal heart sound, no murmurs, no rub and no gallops GI normal to inspection, nondistended, normoactive bowel sounds, soft to palpation, non-tender and non-distended Extremity Extremity Narrative: Patient has some mild redness to the lateral aspect of her left foot Skin Skin Narrative: Patient has an eschar near the fifth metatarsal area. There is a reddened area over the dorsum of the left foot proximal to the 4th and 5th toes, this area is cool to the touch also Neuro oriented x3, CN's II-XII intact bilaterally, moves all extremities, no focal motor deficits and no sensory deficits noted Sensorium / Orientation: awake and alert Speech: speech normal Psych affect normal Assessment & Plan Assessment/Plan (1) Cellulitis of left foot: (2) Critical limb ischemia of left lower extremity: PLAN: Plan 1. Ischemia of the left lower leg secondary to severe peripheral vascular disease-patient underwent surgery today and will be seen by vascular surgery tomorrow #2 cellulitis of the left foot-continue IV Unasyn #3 chronic obstructive pulmonary disease-patient tells this examiner that she is through with smoking, patient is currently on aerosol treatments #4 peripheral vascular disease-patient is currently on a heparin drip, Plavix and aspirin. In addition patient is taking statin. #5 chronic hypoxic respiratory failure secondary to COPD-patient's pulse ox will be monitored, oxygen will be adjusted as needed Total clinical time spent by myself addressing the patient's medical issues, reviewing all of her data, and collaborating with patient's care team: 25 minutes Charges/Coding Visit Charges Inpatient E&M: 58042 [facility] Hosp L1
[2025-02-19] MEDS: Gabapentin 600 MG Tablet PO (20:57)
[2025-02-19] MEDS: ALPRAZolam 0.5 MG Tablet PO (20:57)
[2025-02-19] MEDS: Morphine 2 MG/ML Syringe IV (21:00)
[2025-02-19] MEDS: Pantoprazole Sodium 40 MG Tablet PO (21:12)
[2025-02-19] MEDS: Senna/Docusate Sodium 1 Tablet 2 TABLET PO (21:12)
[2025-02-19] MEDS: Atorvastatin Calcium 80 MG Tablet PO (21:12)
[2025-02-19] MEDS: Acetaminophen 500 MG Tablet 1000 MG PO (21:13)
[2025-02-19] MEDS: HYDROmorphone 1 MG/ML Syringe IV (23:27)
[2025-02-20] VITALS (23 sets, daily range): BP systolic 85–133; BP diastolic 41–89; PULSE 59–114; RESP 11–23; TEMP 36.4–36.7; O2SAT 93–100; BMI 36.6
[2025-02-20] MEDS: Ampicillin/Sulbactam 3 GM in 0.9% Normal Saline (100mL MB+) 100 ML IV ×4 (00:23→17:40)
[2025-02-20 05:00] LABS: Absolute Lymphocyte Count 0.81 X10^3/uL (0.83-4.51); Absolute Neutrophil Count 17.9 X10^3/uL (2.0-7.7); Basophil# 0.02 X10^3/uL; Basophil% 0.1 % (0-1); Hematocrit 24.1 % (37-47); Hemoglobin 7.9 g/dL (12.0-15.0); Lymphocyte # 0.81 X10^3/ul (0.83-4.51); Lymphocyte % 4.1 % (19-41); Mean Corp Hgb Conc 32.8 g/dL (32-36); Mean Corpuscular Hgb 26.3 pg (27.0-32.0); Mean Corpuscular Volume 80.3 fL (81-99); Mean Platelet Vol. 9.5 fl (6.2-12.0); Monocyte# 1.01 X10^3/uL; Monocyte% 5.1 % (0-10); NRBC Flagged by Analyzer 0.2 % (0-5); Neutrophil # 17.88 X10^3/uL (2.7-7.7); Platelet Count 402 K/mm3 (150-450); RBC Distribution Width CV 18.2 % (11.6-14.6); RBC Distribution Width SD 53.1 fl (35.1-43.9); White Blood Count 19.9 K/mm3 (4.4-11.0)
[2025-02-20 05:23] LABS: Anion Gap 8 (5-15); BUN 13 mg/dL (4-19); BUN/Creat Ratio 17.9 RATIO (10-20); Calcium,Total 8.2 mg/dL (7.6-11.0); Carbon Dioxide 24.6 mmol/L (21.0-32.0); Chloride 103 mmol/L (98-108); Creatinine, Serum 0.71 mg/dL (0.70-1.20); EST Glomerular Filtration Rate 92 (>60); Estimated Creatinine Clearance 63.05 ml/min (50-250); Glucose 119 mg/dL (70-99); Potassium 4.5 mmol/L (3.3-5.1); Sodium Level 136 mmol/L (133-145)
[2025-02-20] MEDS: ALPRAZolam 0.5 MG Tablet PO ×3 (06:32→21:40)
[2025-02-20] MEDS: Acetaminophen 500 MG Tablet 1000 MG PO ×3 (06:32→21:39)
--- NOTE | 2025-02-20 07:36 | PN.SURG_ITS ---
Subjective Subjective Linda was sleeping this morning, awoke to her name. She reports pain in her L heel which she cannot characterize but no other complaints. She is on supplemental O2, she is on this at home at baseline 2 lpm. She is chronically anemic, she was 7.0 preop yesterday. She received 1 unit PRBS prior to surgery, 1 unit during. Hgb recheck yesterday afternoon was 10.4 but Hgb is back down to 7.6 this morning. No signs of active bleeding at the incision sites. She is hemodynamically stable. Objective Data Objective Data Vital Signs: Vital Signs Temp Pulse Resp BP Pulse Ox O2 Del Method O2 Flow Rate 97.6 F L 103 H 14 124/68 H 100 Nasal Cannula 3 02/20/25 04:00 02/20/25 07:00 02/20/25 07:00 02/20/25 07:00 02/20/25 07:00 02/20/25 07:00 02/20/25 07:00 FiO2 2 02/19/25 08:27 Oxygen Flow Rate (L/min) 3 Oxygen Delivery Method Nasal Cannula Weight: 181 lb 3.52 oz Body Mass Index (BMI) 36.6 Intake & Output: Intake and Output for Last 24 Hours 02/18/25 02/19/25 02/20/25 23:59 23:59 23:59 Intake Total 1789.87 / 1789.87 2437.58 / 2437.58 350 / 350 Output Total 0 / 0 Balance 1789.87 / 1789.87 2437.58 / 2437.58 350 / 350 Lab / Micro Data 02/20/25 07:45 02/20/25 04:30 Labs: Laboratory Results - last 24 hr 02/18/25 17:35: Blood Type A POSITIVE, Antibody Screen NEGATIVE, Crossmatch See Detail 02/19/25 11:21: Activated Clotting Time 228 H 02/19/25 11:59: Activated Clotting Time 233 H 02/19/25 12:36: Activated Clotting Time 245 H 02/19/25 13:14: Activated Clotting Time 245 H 02/19/25 13:51: Activated Clotting Time 250 H 02/19/25 14:02: Hgb 7.9 L, Hct 24.5 L 02/19/25 16:35: WBC 16.7 H, RBC 4.03 L, Hgb 10.4 L, Hct 32.5 L, MCV 80.6 L, MCH 25.8 L, MCHC 32.0 D, RDW Std Deviation 53.1 H, RDW Coeff of Renea 18.1 H, Plt Count 404, MPV 9.3, Immature Gran % (Auto) 1.300 H, Neut % (Auto) 92.8 H, Lymph % (Auto) 4.3 L, [place] % (Auto) 1.1, Eos % (Auto) 0.1, Baso % (Auto) 0.4, Absolute Neuts (auto) 15.5 H, Absolute Lymphs (auto) 0.71 L, Nucleated RBC % 0.1, Sodium 136, Potassium 4.6, Chloride 103, Carbon Dioxide 23.9, Anion Gap 9, BUN 10, C reatinine 0.65 L, Estim Creat Clear Calc 59.70, Est GFR (MDRD) Non-Af 95, BUN/Creatinine Ratio 15.2, Glucose 155 H, Calcium 8.2 02/20/25 04:30: WBC 19.9 H, RBC 3.00 L, Hgb 7.9 L, Hct 24.1 L, MCV 80.3 L, MCH 26.3 L, MCHC 32.8, RDW Std Deviation 53.1 H, RDW Coeff of Renea 18.2 H, Plt Count 402, MPV 9.5, Immature Gran % (Auto) 0.700, Neut % (Auto) 90.0 H, Lymph % (Auto) 4.1 L, Nelson % (Auto) 5.1, Eos % (Auto) 0.0, Baso % (Auto) 0.1, Absolute Neuts (auto) 17.9 H, Absolute Lymphs (auto) 0.81 L, Nucleated RBC % 0.2, Sodium 136, Potassium 4.5, Chloride 103, Carbon Dioxide 24.6, Anion Gap 8, BUN 13, Creatinine 0.71, Estim Creat Clear Calc 63.05, Est GFR (MDRD) Non-Af 92, BUN/Creatinine Ratio 17.9, Glucose 119 H, Calcium 8.2 Radiography Diagnostic Testing: Radiology Impression Chest X-Ray 02/19/25 16:35 IMPRESSION: No Acute Findings. Reading Location: [facility] Physical Exam Const alert and oriented x3 General Appearance: cooperative HEENT normocephalic, head/scalp atraumatic, hearing grossly normal bilaterally, external ears normal and external nose normal Eyes EOMs intact bilaterally General Eye: normal appearance of both eyes Neck General: normal visual inspection and trachea midline Resp normal respiratory effort, no retractions and no use of accessory muscles Resp Narrative: supplemental O2 via NC 3 lpm Effort and Inspection: able to speak in complete sentences; Negative for labored, grunting or stridor Cardio regular rate and regular rhythm Extremity Extremity Narrative: L groin incision site with Prevena dressing C/D/I, mild ecchymosis without focal edema/hematoma L lower leg incision with silver postop dressing C/D/I, no hematoma/ecchymosis or bleed through, Calf is soft to palpation throughout Strong multiphasic L PT signal, strong monophasic L DP signal L foot with mild swelling/warmth/erythema consistent with reperfusion L heel with a few cracks/fissures Neuro oriented x3, CN's II-XII intact bilaterally and moves all extremities Psych mental status grossly normal Appearance: grossly normal Attitude: calm Activity / Motor Behavior: appropriate eye contact Speech: normal speech Mood & Affect: euthymic mood Assessment & Plan Assessment/Plan (1) Atherosclerosis of [place] arteries of extremities with rest pain, left leg: PLAN: Plan She is POD#1 s/p L iliac-profunda femoral bypass with cadaver and L femoral- posterior tibial bypass with PTFE. Incision sites are satisfactory in appearance without bleeding/hematoma. Vascular exam is much improved to the LLE. She has mild LLE swelling and warmth consistent with reperfusion. L heel pain may be reperfusion related, secondary to the noted heel fissures, or sign of early pressure injury. Apply foam offloading boots, float L heel. Continue to monitor closely. Hgb down to 7.9 this morning and 7.6 on recheck; think the 10.4 postoperative yesterday may have been falsely elevated as no signs of active bleeding and she is hemodynamically stable. She is chronically anemic with baseline over the last few years around 9-10. Will transfuse 1 unit PRBC this morning, goal is Hgb >8 given bypasses. Restart low-dose heparin this morning. Plan is ultimately to transition to Xarelto 2.5mg BID (PAD dosing) + antiplatelet at discharge. Plan for PT/OT eval to assist with discharge planning. Anticipate possible discharge over the weekend. Charges/Coding Procedures Integumentary [id number]: [id number] Global Visit
[2025-02-20] MEDS: Ipratropium/Albuterol Sulfate 3 ML AMPUL.NEB INHALATION (07:55)
[2025-02-20] MEDS: Budesonide Respules 0.5 MG/2 ML AMPUL.NEB. INHALATION (07:55)
[2025-02-20 07:58] LABS: Hematocrit 23.7 % (37-47); Hemoglobin 7.6 g/dL (12.0-15.0)
[2025-02-20] MEDS: Aspirin E.C. 81 MG Tablet PO (10:16)
[2025-02-20] MEDS: Clopidogrel Bisulfate 75 MG Tablet PO (10:16)
[2025-02-20] MEDS: Gabapentin 600 MG Tablet PO ×5 (10:16→21:39)
[2025-02-20] MEDS: HYDROmorphone 1 MG/ML Syringe IV ×2 (10:16→13:16)
[2025-02-20] MEDS: Carvedilol 25 MG Tablet PO ×2 (10:16→17:40)
[2025-02-20] MEDS: Pantoprazole Sodium 40 MG Tablet PO ×2 (10:16→21:39)
[2025-02-20] MEDS: Senna/Docusate Sodium 1 Tablet 2 TABLET PO ×2 (10:17→21:39)
--- NOTE | 2025-02-20 11:04 | CASEMGMT ---
This RN CM appreciated Vascular's progress note reporting that the pt will likely DC home with Xarelto and that DC could potentially be over the weekend. PT/OT progress session s/p surgery is pending. RN CM to pt room to f/u on DC planning. Pt is sitting up in the bed and is A&Ox4. Pt was provided with a Xarelto savings card. Pt still has her POC at bedside. Pt's home oxygen order through [employer] is 2L continuos. Green sheet placed in the chart in the case that the pt qualifies for an increased amount. This RN CM also ensured that the pt has a FWW again. Pt states that she does and that either her or daughter can bring this in at the time of DC if needed. Will appreciate PT/OT today if able. Pt also has a Prevena Wound Vac and denies concerns. Pt states that she has had this before and that she already has the education on how to care for this. Pt denies needs. This RN CM inquired again if the pt would like or be interested in HHC or OP therapy. Pt declines both of these needs at this time and states that she feels safe returning home with her family once medically ready. This RN CM encouraged the pt to work with therapy today to solidify safe DC planning. Pt then became emotional and states, There is just so much going on right now. Pt was provided with emotional support. Pt thanks this RN CM and denies further needs at this time. CM to follow. Tentative Plan: Home with family support, potential updated O2 Rx, new Rx for Xarelto, Prevena Wound Vac, and personal FWW to assist with ambulation pending PT/OT session s/p surgery.
[2025-02-20] MEDS: HEPARIN/D5w 25,000 UNITS 25,000 UNITS/250 ML IV.SOLN. 5 UNITS CONT INF (11:27)
[2025-02-20] MEDS: oxyCODONE 5 MG Tablet PO ×3 (13:17→21:40)
[2025-02-20 15:05] LABS: Hematocrit 27.9 % (37-47); Hemoglobin 9.3 g/dL (12.0-15.0)
--- NOTE | 2025-02-20 15:24 | CHAPLAIN ---
Type of Pastoral Visit ___ Initial Visit ___ Follow-up Visit ___ On-call Visit ___ General Patient Visit ___ Spiritual Assessment ___ Family Conference ___ Bereavement ___ Rapid Response ___ Code Blue ___ Other (describe below) Pastoral Care Referral From ___ Patient ___ Family ___ Nurse ___ Physician ___ General Inspector ___ Spud Grader ___ Other (describe below) Sacrament/Intervention ___ Active listening ___ Anointing ___ Samaritan ___ Bereavement ___ Communion ___ Radha exploration ___ ___ Life review ___ Prayer ___ Reconciliation ___ Sacrament of Sick ___ Supportive presence ___ Wedding ___ Other (describe below) Pastoral Comments patient notified staff that she was not feeling like a visit today
--- NOTE | 2025-02-20 15:51 | CASEMGMT ---
Discharge Planning A list of?SNF providers including quality and resource use data and consistent with the patient's preferred geographic region, medical needs, and insurance network was created in [employer].? This list was provided to the SW. Aurora Olson Discharge Planning Asst.
--- NOTE | 2025-02-20 16:47 | CASEMGMT ---
Social Work- SW met with pt to discuss discharge planning. SW introduced self and role; pt agreeable to meet. Pt reports that she did not do well with therapy, as she is still feeling the affects of anesthesia and did not sleep well last night. Pt reports her goal is home with no therapy, although she would be open to OP therapy if needed. Pt does not want HHC at all. Pt reports that she lives with her spouse who is home 24/7 and physically capable of assisting pt. Pt dtr Tasia also lives with pt. Tasia works full-time, but assist pt at baseline with sweeping and household tasks. Pt has another dtr Fanny who lives [place] from pt. Fanny works multimedia programmer, but is available on weekends to assist pt. Pt reports she has 24/7 assistance and does not feel she needs a SNF. Pt agreeable to see how therapy goes tomorrow and revisit the conversation about discharge needs. SW remains available to follow. DAT [place]
--- NOTE | 2025-02-20 18:13 | PN.HOSP_ITS ---
Reason for Visit Reason for Visit: Diagnoses Elevated white blood cell count, unspecified (02/14/25) Atherosclerosis of [place] arteries of extremities with rest pain, left leg (02/14/25) Cellulitis of left lower limb (02/14/25) Pain in left leg (02/14/25) Subjective Subjective Patient was seen and examined today, she complains of postop pain today. Physical therapy got the patient up today. Objective Data Objective Data Vital Signs: Vital Signs Temp Pulse Resp BP Pulse Ox O2 Del Method O2 Flow Rate 98.1 F 107 H 20 H 111/64 97 Nasal Cannula 2 02/20/25 11:00 02/20/25 15:00 02/20/25 15:00 02/20/25 15:00 02/20/25 15:06 02/20/25 15:00 02/20/25 15:06 FiO2 2 02/19/25 08:27 Oxygen Flow Rate (L/min) 2 Oxygen Delivery Method Nasal Cannula Weight: 82.2 kg Body Mass Index (BMI) 36.6 Intake & Output: Intake and Output for Last 24 Hours 02/18/25 02/19/25 02/20/25 23:59 23:59 23:59 Intake Total 1789.87 / 1789.87 2437.58 / 2437.58 950 / 950 Output Total 0 / 0 Balance 1789.87 / 1789.87 2437.58 / 2437.58 950 / 950 Lab / Micro Data 02/20/25 14:35 02/20/25 04:30 Labs: Laboratory Results - last 24 hr 02/18/25 17:35: Blood Type A POSITIVE, Antibody Screen NEGATIVE, Crossmatch See Detail 02/20/25 04:30: WBC 19.9 H, RBC 3.00 L, Hgb 7.9 L, Hct 24.1 L, MCV 80.3 L, MCH 26.3 L, MCHC 32.8, RDW Std Deviation 53.1 H, RDW Coeff of Renea 18.2 H, Plt Count 402, MPV 9.5, Immature Gran % (Auto) 0.700, Neut % (Auto) 90.0 H, Lymph % (Auto) 4.1 L, [place] % (Auto) 5.1, Eos % (Auto) 0.0, Baso % (Auto) 0.1, Absolute Neuts (auto) 17.9 H, Absolute Lymphs (auto) 0.81 L, Nucleated RBC % 0.2, Sodium 136, Potassium 4.5, Chloride 103, Carbon Dioxide 24.6, Anion Gap 8, BUN 13, Creatinine 0.71, Estim Creat Clear Calc 63.05, Est GFR (MDRD) Non-Af 92, BUN/Creatinine Ratio 17.9, Glucose 119 H, Calcium 8.2 02/20/25 07:45: Hgb 7.6 L, Hct 23.7 L 02/20/25 14:35: Hgb 9.3 L, Hct 27.9 L Physical Exam Narrative alert, oriented x3 and no apparent distress General Appearance: cooperative, well kempt and well developed Orientation / Consciousness: awake, oriented to person, oriented to place and oriented to time HEENT normocephalic, head/scalp atraumatic and moist oral mucous membranes Eyes PERRL, EOMs intact bilaterally and conjunctivae normal Neck supple, no JVD, thyroid normal and no carotid bruits General: trachea midline Resp normal respiratory effort, no retractions, no use of accessory muscles and clear to auscultation bilaterally Auscultation: Negative for rales, rhonchi or wheezes Cardio regular rate, regular rhythm, S1 normal heart sound, S2 normal heart sound, no murmurs, no rub and no gallops GI normal to inspection, nondistended, normoactive bowel sounds, soft to palpation, non-tender and non-distended Extremity Extremity Narrative: Patient has some mild redness to the lateral aspect of her left foot Skin Skin Narrative: Patient has an eschar near the fifth metatarsal area. There is a reddened area over the dorsum of the left foot proximal to the 4th and 5th toes, this area is cool to the touch also Neuro oriented x3, CN's II-XII intact bilaterally, moves all extremities, no focal motor deficits and no sensory deficits noted Sensorium / Orientation: awake and alert Speech: speech normal Psych affect normal Assessment & Plan Assessment/Plan (1) Cellulitis of left foot: (2) Critical limb ischemia of left lower extremity: PLAN: Plan 1. Ischemia of the left lower leg secondary to severe peripheral vascular disease-patient underwent surgery-left external iliac to profunda bypass with cadaver femoral-popliteal artery, left femoral to posterior tibial bypass with PTFE and [place] cuff #2 cellulitis of the left foot-continue IV Unasyn #3 chronic obstructive pulmonary disease-patient tells this examiner that she is through with smoking, patient is currently on aerosol treatments #4 peripheral vascular disease-patient is currently on a heparin drip, Plavix and aspirin. In addition patient is taking statin. #5 chronic hypoxic respiratory failure secondary to COPD-patient's pulse ox will be monitored, oxygen will be adjusted as needed Total clinical time spent by myself addressing the patient's medical issues, reviewing all of her data, and collaborating with patient's care team: 25 minutes Charges/Coding Visit Charges Inpatient E&M: 59245 Subs Hosp L1
[2025-02-20] MEDS: Morphine 2 MG/ML Syringe IV (19:56)
[2025-02-20] MEDS: 0.9% Saline Lock 10 ML Syringe IV (19:56)
[2025-02-20] MEDS: Atorvastatin Calcium 80 MG Tablet PO (21:39)
[2025-02-21] VITALS (9 sets, daily range): BP systolic 78–126; BP diastolic 48–113; PULSE 80–134; RESP 16–23; TEMP 36.2–37.9; O2SAT 95–99; BMI 36.7
[2025-02-21] MEDS: Ampicillin/Sulbactam 3 GM in 0.9% Normal Saline (100mL MB+) 100 ML IV ×5 (00:27→23:23)
[2025-02-21] MEDS: HYDROmorphone 1 MG/ML Syringe IV ×2 (00:30→09:22)
[2025-02-21] MEDS: Morphine 2 MG/ML Syringe IV (03:12)
[2025-02-21] MEDS: 0.9% Saline Lock 10 ML Syringe IV ×3 (03:16→11:00)
[2025-02-21] MEDS: oxyCODONE 5 MG Tablet PO ×3 (03:20→23:35)
[2025-02-21 04:36] LABS: Absolute Lymphocyte Count 1.16 X10^3/uL (0.83-4.51); Absolute Neutrophil Count 22.9 X10^3/uL (2.0-7.7); Basophil# 0.04 X10^3/uL; Basophil% 0.1 % (0-1); Eosinophil# 0.03 X10^3/uL; Eosinophils% 0.1 % (0-5); Hematocrit 26.1 % (37-47); Hemoglobin 8.7 g/dL (12.0-15.0); Lymphocyte # 1.16 X10^3/ul (0.83-4.51); Lymphocyte % 4.3 % (19-41); Mean Corp Hgb Conc 33.3 g/dL (32-36); Mean Corpuscular Hgb 27.2 pg (27.0-32.0); Mean Corpuscular Volume 81.6 fL (81-99); Mean Platelet Vol. 8.9 fl (6.2-12.0); Monocyte# 2.47 X10^3/uL; Monocyte% 9.1 % (0-10); NRBC Flagged by Analyzer 0.9 % (0-5); Neutrophil # 22.94 X10^3/uL (2.7-7.7); POSITIVE DIFFERENTIAL YES; Platelet Count 322 K/mm3 (150-450); RBC Distribution Width CV 17.5 % (11.6-14.6); RBC Distribution Width SD 51.2 fl (35.1-43.9)
[2025-02-21 04:44] LABS: Differential Indicated SCAN CRITERIA MET
[2025-02-21] MEDS: Acetaminophen 500 MG Tablet 1000 MG PO ×3 (05:16→23:36)
[2025-02-21] MEDS: ALPRAZolam 0.5 MG Tablet PO ×3 (05:16→23:23)
[2025-02-21 05:55] LABS: Differential Comment SCANNED
[2025-02-21] MEDS: Carvedilol 25 MG Tablet PO ×2 (09:27→18:05)
[2025-02-21] MEDS: Aspirin E.C. 81 MG Tablet PO (09:27)
[2025-02-21] MEDS: Clopidogrel Bisulfate 75 MG Tablet PO (09:27)
[2025-02-21] MEDS: Pantoprazole Sodium 40 MG Tablet PO ×2 (09:27→23:23)
[2025-02-21] MEDS: Senna/Docusate Sodium 1 Tablet 2 TABLET PO (09:34)
--- NOTE | 2025-02-21 10:50 | RAD_ITS ---
EXAM: XR Chest, 1 View CLINICAL INDICATION: ELEVATED WHITE COUNT TECHNIQUE: Frontal view of the chest. COMPARISON: XR Chest dated 02/19/2025 FINDINGS: LUNGS AND PLEURAL SPACES: Left basilar atelectasis or pneumonia. No pneumothorax. HEART: Unremarkable. No cardiomegaly. MEDIASTINUM: Unremarkable. Normal mediastinal contour. BONES/JOINTS: Unremarkable. No acute fracture. TUBES, LINES AND DEVICES: Right internal jugular central venous catheter tip in the superior vena cava. RAD/Chest 1 View (Portable) IMPRESSION: Left basilar atelectasis or pneumonia. Reading Location: [id number]
[2025-02-21] MEDS: 0.9% Normal Saline (1000mL) 1,000 ML 125 ML IV ×2 (11:00→19:52)
[2025-02-21] MEDS: Rivaroxaban 2.5 MG Tablet PO ×2 (11:03→23:24)
--- NOTE | 2025-02-21 12:03 | PCM.PN.HOSP ---
Reason for Visit Reason for Visit: Diagnoses Elevated white blood cell count, unspecified (02/14/25) Atherosclerosis of [place] arteries of extremities with rest pain, left leg (02/14/25) Cellulitis of left lower limb (02/14/25) Pain in left leg (02/14/25) Subjective Subjective Patient was seen and examined today, her white count is elevated today, I talked by phone with vascular surgery, they stated that the elevation of white count could be secondary to reperfusion of her left leg. Patient has not been eating or drinking well, she is tachycardic and I have elected to place her on IV fluids. I feel she is stable for transfer to PCU for further care. Patient does not complain of any leg pain at this time. Objective Data Objective Data Vital Signs: Vital Signs Temp Pulse Resp BP Pulse Ox O2 Del Method O2 Flow Rate 100.3 F H 122 H 23 H 109/71 97 Nasal Cannula 2 02/21/25 11:00 02/21/25 11:00 02/21/25 11:00 02/21/25 11:00 02/21/25 11:00 02/21/25 11:00 02/21/25 11:05 FiO2 2 02/19/25 08:27 Oxygen Flow Rate (L/min) 2 Oxygen Delivery Method Nasal Cannula Weight: 82.7 kg Body Mass Index (BMI) 36.7 Intake & Output: Intake and Output for Last 24 Hours 02/19/25 02/20/25 02/21/25 23:59 23:59 23:59 Intake Total 2437.58 / 2437.58 1050 / 1050 800 / 800 Output Total 250 / 250 0 / 0 Balance 2437.58 / 2437.58 800 / 800 800 / 800 Lab / Micro Data 02/21/25 04:25 02/20/25 04:30 Labs: Laboratory Results - last 24 hr 02/20/25 14:35: Hgb 9.3 L, Hct 27.9 L 02/21/25 04:25: WBC 27.0 H, RBC 3.20 L, Hgb 8.7 L, Hct 26.1 L, MCV 81.6, MCH 27.2, MCHC 33.3, RDW Std Deviation 51.2 H, RDW Coeff of [place]enea 17.5 H, Plt Count 322, MPV 8.9, Immature Gran % (Auto) 1.400 H, Neut % (Auto) 85.0 H, Lymph % (Auto) 4.3 L, [place] % (Auto) 9.1, Eos % (Auto) 0.1, Baso % (Auto) 0.1, Absolute Neuts (auto) 22.9 H, Absolute Lymphs (auto) 1.16, Nucleated RBC % 0.9, Differential Comment SCANNED, APTT 32.0 Radiography Diagnostic Testing: Radiology Impression Chest X-Ray 02/21/25 10:50 IMPRESSION: Left basilar atelectasis or pneumonia. Reading Location: [facility] Physical Exam Narrative alert, oriented x3 and no apparent distress General Appearance: cooperative, well kempt and well developed Orientation / Consciousness: awake, oriented to person, oriented to place and oriented to time HEENT normocephalic, head/scalp atraumatic and moist oral mucous membranes Eyes PERRL, EOMs intact bilaterally and conjunctivae normal Neck supple, no JVD, thyroid normal and no carotid bruits General: trachea midline Resp normal respiratory effort, no retractions, no use of accessory muscles and clear to auscultation bilaterally Auscultation: Negative for rales, rhonchi or wheezes Cardio regular rate, regular rhythm, S1 normal heart sound, S2 normal heart sound, no murmurs, no rub and no gallops GI normal to inspection, nondistended, normoactive bowel sounds, soft to palpation, non-tender and non-distended Extremity Extremity Narrative: Patient has some mild redness to the lateral aspect of her left foot Skin Skin Narrative: Patient has an eschar near the fifth metatarsal area. There is a reddened area over the dorsum of the left foot proximal to the 4th and 5th toes, this area is cool to the touch also Neuro oriented x3, CN's II-XII intact bilaterally, moves all extremities, no focal motor deficits and no sensory deficits noted Sensorium / Orientation: awake and alert Speech: speech normal Psych affect normal Assessment & Plan Assessment/Plan (1) Cellulitis of left foot: PLAN: Plan 1. Ischemia of the left lower leg secondary to severe peripheral vascular disease-patient underwent surgery-left external iliac to profunda bypass with cadaver femoral-popliteal artery, left femoral to posterior tibial bypass with PTFE and Skelton cuff. Patient appears stable for transfer to PCU at this time. Patient's heparin was discontinued and she was placed on Xarelto per vascular. #2 cellulitis of the left foot-continue IV Unasyn #3 chronic obstructive pulmonary disease-patient tells this examiner that she is through with smoking, patient is currently on aerosol treatments #4 peripheral vascular disease-patient is currently on a heparin drip, Plavix and aspirin. In addition patient is taking statin. #5 chronic hypoxic respiratory failure secondary to COPD-patient's pulse ox will be monitored, oxygen will be adjusted as needed #6 leukocytosis-probably secondary to reperfusion of the left leg, I ordered a chest x-ray on the patient today to rule out any pneumonia, she remains on Unasyn at this time, CBC will be repeated tomorrow Total clinical time spent by myself addressing the patient's medical issues, reviewing all of her data, and collaborating with patient's care team: 35 minutes Charges/Coding Visit Charges Inpatient E&M: 14095 Subs Hosp L2
--- NOTE | 2025-02-21 12:21 | CASEMGMT ---
Social Work- SW met with pt to continue discussions on discharge planning. A list of SNF providers including quality and resource use data and consistent with the patient?s preferred geographic region, medical needs, and insurance network were provided from the [employer] Guide. Pt reports she has gas and her stomach hurts, which is why therapy did not go well today. SW encouraged pt to look over SNF list with family and make 3 selections for referrals. Pt agreeable to look over list with family when they come in over the weekend. SW remains available to follow. DAT [place]
[2025-02-21] MEDS: Gabapentin 600 MG Tablet PO ×3 (13:08→23:23)
[2025-02-21] MEDS: Bisacodyl 5 MG Tablet 10 MG PO (13:57)
[2025-02-21] MEDS: Lactulose 20 GM/30 ML UDC PO (15:36)
[2025-02-21] MEDS: Atorvastatin Calcium 80 MG Tablet PO (23:23)
[2025-02-22] VITALS (7 sets, daily range): BP systolic 90–123; BP diastolic 44–74; PULSE 85–103; RESP 16–20; TEMP 36.7–36.9; O2SAT 93–100; BMI 36.7
[2025-02-22 00:16] LABS: Lactic Acid 1.5 mmol/L (0.0-2.0)
[2025-02-22] MEDS: 0.9% Normal Saline (1000mL) 1,000 ML 125 ML IV (04:48)
[2025-02-22] MEDS: ALPRAZolam 0.5 MG Tablet PO ×3 (05:46→22:28)
[2025-02-22] MEDS: Ampicillin/Sulbactam 3 GM in 0.9% Normal Saline (100mL MB+) 100 ML IV ×4 (05:46→22:56)
[2025-02-22] MEDS: Acetaminophen 500 MG Tablet 1000 MG PO ×2 (05:46→22:28)
[2025-02-22] MEDS: Clopidogrel Bisulfate 75 MG Tablet PO (09:17)
[2025-02-22] MEDS: Pantoprazole Sodium 40 MG Tablet PO ×2 (09:17→22:28)
[2025-02-22] MEDS: Aspirin E.C. 81 MG Tablet PO (09:17)
[2025-02-22] MEDS: Carvedilol 25 MG Tablet PO ×2 (09:17→15:44)
[2025-02-22] MEDS: Rivaroxaban 2.5 MG Tablet PO ×2 (09:18→22:28)
[2025-02-22] MEDS: Gabapentin 600 MG Tablet PO ×4 (09:23→22:28)
--- NOTE | 2025-02-22 10:41 | PCM.PN.HOSP ---
Reason for Visit Reason for Visit: Diagnoses Elevated white blood cell count, unspecified (02/14/25) Atherosclerosis of [place] arteries of extremities with rest pain, left leg (02/14/25) Cellulitis of left lower limb (02/14/25) Pain in left leg (02/14/25) Subjective Subjective Patient was seen and examined today, she is no longer tachycardic, I stopped her fluids today. Patient appeared sleepy when I first approached her this morning but then she woke up and told me she did not want to go to an extended care facility she wants to go home. She has a disposable wound VAC on-I called and discussed her discharge with Dr. Lopez, he stated that if she was doing better today she could be discharged. Objective Data Objective Data Vital Signs: Vital Signs Temp Pulse Resp BP Pulse Ox O2 Del Method O2 Flow Rate 98.4 F 85 16 94/58 L 100 Nasal Cannula 3 02/22/25 08:29 02/22/25 08:29 02/22/25 08:29 02/22/25 08:29 02/22/25 08:29 02/22/25 08:29 02/22/25 08:29 FiO2 2 02/19/25 08:27 Oxygen Flow Rate (L/min) 3 Oxygen Delivery Method Nasal Cannula Weight: 82.7 kg Body Mass Index (BMI) 36.7 Intake & Output: Intake and Output for Last 24 Hours 02/20/25 02/21/25 02/22/25 23:59 23:59 23:59 Intake Total 1050 / 1050 4150 / 4150 1802.08 / 1802.08 Output Total 250 / 250 0 / 0 Balance 800 / 800 4150 / 4150 1802.08 / 1802.08 Lab / Micro Data 02/22/25 11:20 02/20/25 04:30 Labs: Laboratory Results - last 24 hr 02/21/25 23:40: Lactic Acid 1.5 Radiography Diagnostic Testing: Radiology Impression Chest X-Ray 02/21/25 10:50 IMPRESSION: Left basilar atelectasis or pneumonia. Reading Location: [facility] Physical Exam Narrative alert, oriented x3 and no apparent distress General Appearance: cooperative, well kempt and well developed Orientation / Consciousness: awake, oriented to person, oriented to place and oriented to time HEENT normocephalic, head/scalp atraumatic and moist oral mucous membranes Eyes PERRL, EOMs intact bilaterally and conjunctivae normal Neck supple, no JVD, thyroid normal and no carotid bruits General: trachea midline Resp normal respiratory effort, no retractions, no use of accessory muscles and clear to auscultation bilaterally Auscultation: Negative for rales, rhonchi or wheezes Cardio regular rate, regular rhythm, S1 normal heart sound, S2 normal heart sound, no murmurs, no rub and no gallops GI normal to inspection, nondistended, normoactive bowel sounds, soft to palpation, non-tender and non-distended Extremity Extremity Narrative: Patient has some mild redness to the lateral aspect of her left foot Skin Skin Narrative: Patient has an eschar near the fifth metatarsal area. There is a reddened area over the dorsum of the left foot proximal to the 4th and 5th toes, this area is cool to the touch also Neuro oriented x3, CN's II-XII intact bilaterally, moves all extremities, no focal motor deficits and no sensory deficits noted Sensorium / Orientation: awake and alert Speech: speech normal Psych affect normal Assessment & Plan Assessment/Plan (1) Critical limb ischemia of left lower extremity: (2) Cellulitis of left foot: PLAN: Plan 1. Ischemia of the left lower leg secondary to severe peripheral vascular disease-patient underwent surgery-left external iliac to profunda bypass with cadaver femoral-popliteal artery, left femoral to posterior tibial bypass with PTFE and Skelton cuff. PT and OT are seeing the patient, I will reevaluate her this afternoon for possible discharge after she is seen by PT and OT #2 cellulitis of the left foot-continue IV Unasyn #3 chronic obstructive pulmonary disease-patient tells this examiner that she is through with smoking, patient is currently on aerosol treatments #4 peripheral vascular disease-patient is currently on a heparin drip, Plavix and aspirin. In addition patient is taking statin. #5 chronic hypoxic respiratory failure secondary to COPD-patient's pulse ox will be monitored, oxygen will be adjusted as needed-she is currently on 3 L #6 leukocytosis-probably secondary to reperfusion of the left leg, patient's chest x-ray yesterday showed left basilar atelectasis or pneumonia-patient's CBC today revealed a white blood cell count of 39.2 with a hemoglobin of 7.8. I talked briefly with Dr. Lopez by phone and he requested that vancomycin be added onto the patient's antibiotic coverage. CBC will be repeated tomorrow. Total clinical time spent by myself addressing the patient's medical issues, reviewing all of her data, and collaborating with patient's care team: 35 minutes Charges/Coding Visit Charges Inpatient E&M: 39476 Subs Hosp L2
[2025-02-22 11:34] LABS: Absolute Lymphocyte Count 0.99 X10^3/uL (0.83-4.51); Absolute Neutrophil Count 35.4 X10^3/uL (2.0-7.7); Basophil# 0.09 X10^3/uL; Basophil% 0.2 % (0-1); Eosinophil# 0.09 X10^3/uL; Eosinophils% 0.2 % (0-5); Hematocrit 24.9 % (37-47); Hemoglobin 7.8 g/dL (12.0-15.0); Lymphocyte # 0.99 X10^3/ul (0.83-4.51); Lymphocyte % 2.5 % (19-41); Mean Corp Hgb Conc 31.3 g/dL (32-36); Mean Corpuscular Hgb 27.1 pg (27.0-32.0); Mean Corpuscular Volume 86.5 fL (81-99); Mean Platelet Vol. 9.6 fl (6.2-12.0); Monocyte# 2.14 X10^3/uL; Monocyte% 5.5 % (0-10); NRBC Flagged by Analyzer 0.1 % (0-5); Neutrophil # 35.41 X10^3/uL (2.7-7.7); Neutrophil % 90.5 % (47-70); POSITIVE COUNT YES; POSITIVE DIFFERENTIAL YES; Platelet Count 290 K/mm3 (150-450); RBC Distribution Width CV 18.6 % (11.6-14.6); RBC Distribution Width SD 58.7 fl (35.1-43.9); Red Blood Count 2.88 M/mm3 (4.2-5.4)
[2025-02-22 11:50] LABS: Differential Indicated SCAN CRITERIA MET; White Blood Count 39.2 K/mm3 (4.4-11.0)
[2025-02-22 12:37] LABS: Platelet Estimate A (ADEQ); Polychromasia 1+
[2025-02-22 12:38] LABS: Hypochromasia 1+; Microcytosis 1+; Ovalocyte 1+
[2025-02-22] MEDS: Vancomycin HCl 2,000 MG in 0.9% Normal Saline (500mL Bag) 500 ML 250 MG IV (14:14)
--- NOTE | 2025-02-22 14:32 | PHA.PHARE_ITS ---
Consult Antibiotic Management Pharmacy has been consulted to manage selected antibiotic: Vancomycin Type of Intervention Type of Consult: New start Labs Labs: Sodium 136 mmol/L (133-145) 02/20/25 04:30 Potassium 4.5 mmol/L (3.3-5.1) 02/20/25 04:30 Chloride 103 mmol/L (98-108) 02/20/25 04:30 Carbon Dioxide 24.6 mmol/L (21.0-32.0) 02/20/25 04:30 Anion Gap 8 (5-15) 02/20/25 04:30 BUN 13 mg/dL (4-19) 02/20/25 04:30 Creatinine 0.71 mg/dL (0.70-1.20) 02/20/25 04:30 Est GFR (MDRD) Non-Af 92 (>60) 02/20/25 04:30 BUN/Creatinine Ratio 17.9 RATIO (10-20) 02/20/25 04:30 Glucose 119 mg/dL (70-99) H 02/20/25 04:30 Dosing Weight Weight used for dosin.7 kg Estimated Creatinine Clearance Estimated Creatinine Clearance: 63 ML/MIN Goal Trough Goal Trough: 15-20 mcg/mL Pharmacy Plan for Drug Dosing Pharmacy Plan for Drug Dosing: Give initial loading dose (25mg/kg) of 2000mg IV x1, then continue with 1000mg q12h per [facility] dosing protocol chart. Will check a trough before the 4th overall dose. Pharmacy Service will continue to monitor and adjust dosing as required. Follow-Up Labs Follow-Up Labs: Trough: Vancomycin Date/Time Labs Ordered Labs to be done on [date and time ordered]: 02/24/25 01:30
[2025-02-22] MEDS: Morphine 2 MG/ML Syringe IV (15:42)
[2025-02-22] MEDS: oxyCODONE 5 MG Tablet PO ×2 (18:26→22:28)
[2025-02-22] MEDS: Ipratropium/Albuterol Sulfate 3 ML AMPUL.NEB INHALATION (20:30)
[2025-02-22] MEDS: Budesonide Respules 0.5 MG/2 ML AMPUL.NEB. INHALATION (20:31)
[2025-02-22] MEDS: Atorvastatin Calcium 80 MG Tablet PO (22:28)
[2025-02-22] MEDS: SimETHICONE 80 MG Chewable Tablet 160 MG PO (22:56)
[2025-02-23] VITALS (10 sets, daily range): BP systolic 100–151; BP diastolic 61–98; PULSE 68–101; RESP 14–20; TEMP 36.4–36.9; O2SAT 90–100; BMI 38.3
[2025-02-23] MEDS: Vancomycin IV 1,000 MG/200 ML BAG 200 MG IV ×2 (03:00→14:51)
[2025-02-23] MEDS: oxyCODONE 5 MG Tablet PO ×4 (03:36→21:32)
[2025-02-23] MEDS: Ampicillin/Sulbactam 3 GM in 0.9% Normal Saline (100mL MB+) 100 ML IV ×4 (05:13→23:59)
[2025-02-23] MEDS: ALPRAZolam 0.5 MG Tablet PO ×3 (05:13→21:32)
[2025-02-23] MEDS: Acetaminophen 500 MG Tablet 1000 MG PO ×3 (05:13→21:33)
[2025-02-23] MEDS: SimETHICONE 80 MG Chewable Tablet 160 MG PO ×3 (06:17→20:06)
[2025-02-23 06:22] LABS: Absolute Lymphocyte Count 1.22 X10^3/uL (0.83-4.51); Absolute Neutrophil Count 27.4 X10^3/uL (2.0-7.7); Basophil# 0.05 X10^3/uL; Basophil% 0.2 % (0-1); Eosinophil# 0.25 X10^3/uL; Eosinophils% 0.8 % (0-5); Hematocrit 23.9 % (37-47); Hemoglobin 7.6 g/dL (12.0-15.0); Lymphocyte # 1.22 X10^3/ul (0.83-4.51); Mean Corp Hgb Conc 31.8 g/dL (32-36); Mean Corpuscular Hgb 27.2 pg (27.0-32.0); Mean Corpuscular Volume 85.7 fL (81-99); Mean Platelet Vol. 9.6 fl (6.2-12.0); Monocyte# 1.51 X10^3/uL; Monocyte% 4.9 % (0-10); NRBC Flagged by Analyzer 0.1 % (0-5); Neutrophil # 27.39 X10^3/uL (2.7-7.7); POSITIVE COUNT YES; POSITIVE DIFFERENTIAL YES; Platelet Count 326 K/mm3 (150-450); RBC Distribution Width CV 18.5 % (11.6-14.6); RBC Distribution Width SD 57.1 fl (35.1-43.9); Red Blood Count 2.79 M/mm3 (4.2-5.4)
[2025-02-23 06:49] LABS: Differential Indicated SCAN CRITERIA MET; White Blood Count 30.8 K/mm3 (4.4-11.0)
[2025-02-23 06:55] LABS: Anion Gap 9 (5-15); BUN 11 mg/dL (4-19); BUN/Creat Ratio 18.8 RATIO (10-20); Calcium,Total 7.8 mg/dL (7.6-11.0); Carbon Dioxide 21.8 mmol/L (21.0-32.0); Chloride 106 mmol/L (98-108); Creatinine, Serum 0.57 mg/dL (0.70-1.20); EST Glomerular Filtration Rate 98 (>60); Estimated Creatinine Clearance 64.77 ml/min (50-250); Glucose 102 mg/dL (70-99); Potassium 3.1 mmol/L (3.3-5.1); Sodium Level 137 mmol/L (133-145)
[2025-02-23] MEDS: Ipratropium/Albuterol Sulfate 3 ML AMPUL.NEB INHALATION ×2 (07:01→19:30)
[2025-02-23] MEDS: Budesonide Respules 0.5 MG/2 ML AMPUL.NEB. INHALATION (07:01)
[2025-02-23] MEDS: Pantoprazole Sodium 40 MG Tablet PO ×2 (08:27→21:34)
[2025-02-23] MEDS: Clopidogrel Bisulfate 75 MG Tablet PO (08:27)
[2025-02-23] MEDS: Aspirin E.C. 81 MG Tablet PO (08:27)
[2025-02-23] MEDS: Carvedilol 25 MG Tablet PO ×2 (08:27→17:57)
[2025-02-23] MEDS: Rivaroxaban 2.5 MG Tablet PO ×2 (08:28→21:33)
[2025-02-23] MEDS: Gabapentin 600 MG Tablet PO ×4 (08:34→21:32)
[2025-02-23] MEDS: Senna/Docusate Sodium 1 Tablet 2 TABLET PO (08:34)
[2025-02-23] MEDS: 0.9% Normal Saline (250mL Bag) 250 ML 15 ML IV (10:40)
--- NOTE | 2025-02-23 12:08 | PCM.PN.SRG ---
Subjective Subjective Looks good, feeling better. Improved appetite, no F/C. 5th digit pain, heel pain on left are primary source of pain; surgical site pain improving. Has been OOB to chair and with PT. Really wants to go home. No SOB, still with cough. Objective Data Objective Data A&O x 3, NAD RRR Resp non labored LLE triphasic PT, biphasic DP, 1+ edema Inc (inguinal)- provena removed, C/D/I, no erythema Inc (calf)- dry, intact dressing with no erythema, not removed Vital Signs: Vital Signs Temp Pulse Resp BP Pulse Ox O2 Del Method O2 Flow Rate 97.7 F L 92 18 151/62 H 98 Nasal Cannula 3 02/23/25 08:21 02/23/25 08:21 02/23/25 08:21 02/23/25 08:21 02/23/25 08:21 02/23/25 08:25 02/23/25 10:12 FiO2 2 02/19/25 08:27 Oxygen Flow Rate (L/min) 3 Oxygen Delivery Method Nasal Cannula Weight: 190 lb 4.143 oz Body Mass Index (BMI) 38.3 Intake & Output: Intake and Output for Last 24 Hours 02/21/25 02/22/25 02/23/25 23:59 23:59 23:59 Intake Total 4150 / 4150 3242.08 / 3242.08 1050 / 1050 Output Total 0 / 0 Balance 4150 / 4150 3242.08 / 3242.08 1050 / 1050 Lab / Micro Data 02/23/25 06:05 02/23/25 06:05 Labs: Laboratory Results - last 24 hr 02/22/25 11:20: Platelet Estimate A, Polychromasia 1+, Hypochromasia 1+, Microcytosis 1+, Ovalocytes 1+ 02/23/25 06:05: WBC 30.8 H*, RBC 2.79 L, Hgb 7.6 L, Hct 23.9 L, MCV 85.7, MCH 27.2, MCHC 31.8 L, RDW Std Deviation 57.1 H, RDW Coeff of Renea 18.5 H, Plt Count 326, MPV 9.6, Immature Gran % (Auto) 1.100 H, Neut % (Auto) 89.0 H, Lymph % (Auto) 4.0 L, [place] % (Auto) 4.9, Eos % (Auto) 0.8, Baso % (Auto) 0.2, Absolute Neuts (auto) 27.4 H, Absolute Lymphs (auto) 1.22, Nucleated RBC % 0.1, Sodium 137, Potassium 3.1 L, Chloride 106, Carbon Dioxide 21.8, Anion Gap 9, BUN 11, Creatinine 0.57 L, Estim Creat Clear Calc 64.77, Est GFR (MDRD) Non-Af 98, BUN/Creatinine Ratio 18.8, Glucose 102 H, Calcium 7.8 Assessment & Plan Assessment/Plan (1) Atherosclerosis of [place] arteries of extremities with rest pain, left leg: PLAN: POD # 4 left ilio-femoral bypass (cadaver), femoral-PT bypass (synthetic) -WBC improved though still significantly elevated -groin incision with no signs of infection; will place traditional vac over incision while she remains admitted to protect -calf incision with pristine dressing, no infection concern and low risk site for infection -foot wounds with no overt infection, non TTP and no surrounding erythema; serous drainage from reperfusion edema -currently on Unasyn, Vanc; D/W hospitalist, planning for ID consult to make sure not missing anything -leukocytosis could simply be reactive from reperfusion of a severely ischemic extremity
--- NOTE | 2025-02-23 13:17 | WOUNDNOTE ---
wound photo: left groin
--- NOTE | 2025-02-23 13:18 | WOUNDNOTE ---
wound photo: left lateral foot
--- NOTE | 2025-02-23 14:48 | PCM.CONS.GEN ---
Assessment & Plan Assessment/Plan (1) Leukocytosis: PLAN: Possible pneumonia with new cough and R base changes on xray. Wbc improved. C/o some cramping abd pain. Cont vanc/unasyn for now. Will follow, thank you. Plan on home with po abx. D/w Dr. Coley. (2) Cellulitis of left foot: (3) Critical limb ischemia of left lower extremity: HPI Consult Data Date of Consult: 02/23/25 HPI Narrative Reason for Consultation: leukocytosis HPI Narrative: BAHMAN MICHELE, is a 69 F with COPD, PVD, htn, presented to [facility] ED 02/14 with 3 days progressive L foot pain s/p angioplasty 02/11/[address] Lopez. Pain was severe, no fever or chills. Admitted, taken to OR 02/19 for bypass. On unasyn, had rising wbc, vanc added. Foot feeling better, but c/o diffuse cramping abd pain and some cough. No dysuria. Full ROS performed and neg except as noted above. [facility] Medical History GI bleed Decrease in appetite Wears hearing aid History of steroid therapy Arthritis PVD (peripheral vascular disease) Syncope Dietary restriction Gastric reflux Leg cramps Anxiety disorder Wears dentures Low iron High cholesterol History of ulceration On home oxygen therapy Post-menopausal Diverticulitis Back pain due to injury Chronic headaches History of stress test Wears glasses Chronic pain Shortness of breath Smoker History of cardiovascular stress test Leg pain S/P arteriogram of extremity Essential hypertension COPD (chronic obstructive pulmonary disease) Incisional hernia without mention of obstruction or gangrene Impaired fasting glucose History of pelvic hematoma Duodenal ulcer Clostridium difficile colitis Closed fracture of fifth metatarsal bone of left foot Injury, spleen, with capsular tears Pseudocyst of pancreas Peptic ulcer disease SBO (small bowel obstruction) H/O spleen injury Asthma Hyperlipemia Alcohol abuse Home Medications ?Medication ?Instructions ?Recorded ?Last Taken ?Type carvedilol 25 mg tablet 25 mg PO BID HEART 05/28/19 09/15/24 History spironolactone 25 mg tablet 25 mg PO DAILY BLOOD PRESSURE 05/28/19 09/14/24 History alprazolam 0.5 mg tablet 0.5 mg PO TID ANXIETY 02/12/21 02/11/25 History acetaminophen 500 mg tablet 1,000 mg PO Q6H PRN PAIN 07/19/22 09/14/24 History pantoprazole 40 mg tablet,delayed 40 mg PO BID GERD 30 days #60 tabs 10/12/22 09/14/24 Rx release guaifenesin 1,200 mg tablet, 1,200 mg PO BID PRN MUCOUS 07/02/23 06/10/24 History extended release 12 hr (Mucinex) lisinopril 40 mg tablet 40 mg PO QHS BLOOD PRESSURE 07/14/23 09/14/24 History aspirin 81 mg tablet,delayed 81 mg PO BREAKFAST HEART HEALTH 07/19/23 02/11/25 Rx release #0 tabs gabapentin 600 mg tablet 600 mg PO 4X/DAY NERVE PAIN 11/06/23 02/11/25 History tramadol 50 mg tablet 50 mg PO 4X/DAY PRN PAIN 11/06/23 09/15/24 History multivitamin with minerals-folic 1 tab PO DAILY supplement 01/30/24 09/15/24 History acid 80 mcg chewable tablet (Centrum Adult 50 Plus) atorvastatin 80 mg tablet 80 mg PO QHS CHOLESTEROL #90 tabs 02/27/24 09/14/24 Rx miscellaneous medical supply #1 ea 06/19/24 Unknown Rx ipratropium 0.5 mg-albuterol 3 mg 3 ml inhalation Q4H PRN PRN SOB 09/01/24 09/15/24 Rx (2.5 mg base)/3 mL nebulization &/OR WHEEZING #180 mL soln clopidogrel 75 mg tablet 75 mg PO DAILY BLOOD THINNER #90 12/11/24 02/11/25 Rx tabs albuterol sulfate 90 mcg/actuation 2 puff inhalation Q4H PRN 12/15/24 Unknown Rx aerosol inhaler (Ventolin HFA) shortness of breath or wheezing #18 grams fluticasone fur. 200 mcg-umeclid 1 inh inhalation DAILY ASTHMA #60 12/15/24 Unknown Rx 62.5 mcg-vilant 25 mcg ea inhalat.powder (Trelegy Ellipta) hydrocodone-acetaminophen 5-325mg 1 tab PO TID pain 02/14/25 02/13/25 History 5mg-325mg Allergy/AdvReac Type Severity Reaction Status Date / Time amlodipine AdvReac Intermediate Nausea/Vom/ Verified 02/19/25 08:25 Diarrhea clonidine AdvReac Mild Nausea/Vom/ Verified 02/19/25 08:25 Diarrhea adhesive AdvReac Rash Verified 02/19/25 08:25 codeine AdvReac Nausea Verified 02/19/25 08:25 Family History Mother Heart disease Hypertension Diabetes Sister Hypertension Brother Hypertension Sister Hypertension Cervical cancer Brother Pancreatic cancer Surgical History History of appendectomy History of esophagogastroduodenoscopy (EGD) Hx of colonoscopy Hx of cervical spine surgery H/O: H/O colostomy History of hernia repair Social History household members: spouse housing: house Smoking Status: Current every day smoker tobacco type: cigarettes Electronic Cigarette Use: not used second hand exposure: Yes alcohol intake: current alcohol intake frequency: a few times a week substance use type: does not use caffeine: Yes what type of physical activity do you participate in: bicycling frequency: 1-2 times per week Physical Exam Const alert, oriented x3 and no apparent distress General Appearance: cooperative HEENT normocephalic and head/scalp atraumatic Eyes PERRL and EOMs intact bilaterally Neck supple and No nodes Resp clear to auscultation bilaterally Auscultation: diminished lung sounds Cardio regular rate and regular rhythm GI soft to palpation and non-distended GI Narrative: mild diffuse soreness Extremity General Extremity: edema Skin Skin Narrative: reviewed wound photos Neuro CN's II-XII intact bilaterally Lab / Micro Data Attestation: I reviewed the patient's lab results. 02/23/25 06:05 02/23/25 06:05 Labs: Laboratory Results - last 24 hr 02/23/25 06:05: WBC 30.8 H*, RBC 2.79 L, Hgb 7.6 L, Hct 23.9 L, MCV 85.7, MCH 27.2, MCHC 31.8 L, RDW Std Deviation 57.1 H, RDW Coeff of Renea 18.5 H, Plt Count 326, MPV 9.6, Immature Gran % (Auto) 1.100 H, Neut % (Auto) 89.0 H, Lymph % (Auto) 4.0 L, [place] % (Auto) 4.9, Eos % (Auto) 0.8, Baso % (Auto) 0.2, Absolute Neuts (auto) 27.4 H, Absolute Lymphs (auto) 1.22, Nucleated RBC % 0.1, Sodium 137, Potassium 3.1 L, Chloride 106, Carbon Dioxide 21.8, Anion Gap 9, BUN 11, Creatinine 0.57 L, Estim Creat Clear Calc 64.77, Est GFR (MDRD) Non-Af 98, BUN/Creatinine Ratio 18.8, Glucose 102 H, Calcium 7.8
[2025-02-23] MEDS: Albuterol 2.5 MG/3 ML VIAL.NEB. INHALATION (16:07)
--- NOTE | 2025-02-23 17:35 | PN.HOSP_ITS ---
Reason for Visit Reason for Visit: Diagnoses Elevated white blood cell count, unspecified (02/14/25) Atherosclerosis of [place] arteries of extremities with rest pain, left leg (02/14/25) Cellulitis of left lower limb (02/14/25) Pain in left leg (02/14/25) Subjective Subjective Patient was seen and examined today, I talked with vascular surgery about her care and had infectious diseases see the patient to rule out any kind of infection. Vascular surgery does not feel the wound looks reddened or suspicious for infection, infectious diseases states that the patient should stay another night and receive antibiotics and be reevaluated tomorrow. Objective Data Objective Data Vital Signs: Vital Signs Temp Pulse Resp BP Pulse Ox O2 Del Method O2 Flow Rate 98 F 86 17 139/98 H 100 Nasal Cannula 2 02/23/25 15:44 02/23/25 16:07 02/23/25 16:07 02/23/25 15:44 02/23/25 15:44 02/23/25 16:12 02/23/25 16:12 FiO2 2 02/19/25 08:27 Oxygen Flow Rate (L/min) 2 Oxygen Delivery Method Nasal Cannula Weight: 86.3 kg Body Mass Index (BMI) 38.3 Intake & Output: Intake and Output for Last 24 Hours 02/21/25 02/22/25 02/23/25 23:59 23:59 23:59 Intake Total 4150 / 4150 3242.08 / 3242.08 1350 / 1350 Output Total 0 / 0 Balance 4150 / 4150 3242.08 / 3242.08 1350 / 1350 Lab / Micro Data 02/23/25 06:05 02/23/25 06:05 Labs: Laboratory Results - last 24 hr 02/23/25 06:05: WBC 30.8 H*, RBC 2.79 L, Hgb 7.6 L, Hct 23.9 L, MCV 85.7, MCH 27.2, MCHC 31.8 L, RDW Std Deviation 57.1 H, RDW Coeff of Renea 18.5 H, Plt Count 326, MPV 9.6, Immature Gran % (Auto) 1.100 H, Neut % (Auto) 89.0 H, Lymph % (Auto) 4.0 L, [place] % (Auto) 4.9, Eos % (Auto) 0.8, Baso % (Auto) 0.2, Absolute Neuts (auto) 27.4 H, Absolute Lymphs (auto) 1.22, Nucleated RBC % 0.1, Sodium 137, Potassium 3.1 L, Chloride 106, Carbon Dioxide 21.8, Anion Gap 9, BUN 11, C reatinine 0.57 L, Estim Creat Clear Calc 64.77, Est GFR (MDRD) Non-Af 98, BUN/Creatinine Ratio 18.8, Glucose 102 H, Calcium 7.8 Physical Exam Narrative alert, oriented x3 and no apparent distress General Appearance: cooperative, well kempt and well developed Orientation / Consciousness: awake, oriented to person, oriented to place and oriented to time HEENT normocephalic, head/scalp atraumatic and moist oral mucous membranes Eyes PERRL, EOMs intact bilaterally and conjunctivae normal Neck supple, no JVD, thyroid normal and no carotid bruits General: trachea midline Resp normal respiratory effort, no retractions, no use of accessory muscles and clear to auscultation bilaterally Auscultation: Negative for rales, rhonchi or wheezes Cardio regular rate, regular rhythm, S1 normal heart sound, S2 normal heart sound, no murmurs, no rub and no gallops GI normal to inspection, nondistended, normoactive bowel sounds, soft to palpation, non-tender and non-distended Extremity Extremity Narrative: Patient has some mild redness to the lateral aspect of her left foot Skin Skin Narrative: Patient has an eschar near the fifth metatarsal area. There is a reddened area over the dorsum of the left foot proximal to the 4th and 5th toes, this area is cool to the touch also Neuro oriented x3, CN's II-XII intact bilaterally, moves all extremities, no focal motor deficits and no sensory deficits noted Sensorium / Orientation: awake and alert Speech: speech normal Psych affect normal Assessment & Plan Assessment/Plan (1) Cellulitis of left foot: (2) Critical limb ischemia of left lower extremity: PLAN: Plan 1. Ischemia of the left lower leg secondary to severe peripheral vascular disease-patient underwent surgery-left external iliac to profunda bypass with cadaver femoral-popliteal artery, left femoral to posterior tibial bypass with PTFE and Skelton cuff. PT and OT are seeing the patient, I will reevaluate her this afternoon for possible discharge after she is seen by PT and OT #2 cellulitis of the left foot-continue IV Unasyn #3 chronic obstructive pulmonary disease-patient tells this examiner that she is through with smoking, patient is currently on aerosol treatments #4 peripheral vascular disease-patient is currently on a heparin drip, Plavix and aspirin. In addition patient is taking statin. #5 chronic hypoxic respiratory failure secondary to COPD-patient's pulse ox will be monitored, oxygen will be adjusted as needed-she is currently on 2 L #6 leukocytosis-probably secondary to reperfusion of the left leg, CBC will be repeated tomorrow, patient is currently on vancomycin and [place]. Total clinical time spent by myself addressing the patient's medical issues, reviewing all of her data, and collaborating with patient's care team: 35 minutes Charges/Coding Visit Charges Inpatient E&M: 95698 Subs Hosp L2
[2025-02-23] MEDS: 0.9% Saline Lock 10 ML Syringe IV ×3 (20:06→23:59)
[2025-02-23] MEDS: Atorvastatin Calcium 80 MG Tablet PO (21:34)
[2025-02-24 02:18] VITALS: PULSE 85; RESP 22
[2025-02-24] MEDS: Ipratropium/Albuterol Sulfate 3 ML AMPUL.NEB INHALATION ×2 (02:18→07:07)
[2025-02-24 02:24] LABS: Vancomycin, Trough Level 16.7 ug/mL (5.0-15.0)
[2025-02-24] MEDS: Vancomycin IV 1,000 MG/200 ML BAG 200 MG IV (02:35)
--- NOTE | 2025-02-24 02:35 | PCM.RX.CS ---
Consult Antibiotic Management Pharmacy has been consulted to manage selected antibiotic: Vancomycin Type of Intervention Type of Consult: Follow-up Labs Labs: Sodium 137 mmol/L (133-145) 02/23/25 06:05 Potassium 3.1 mmol/L (3.3-5.1) L 02/23/25 06:05 Chloride 106 mmol/L (98-108) 02/23/25 06:05 Carbon Dioxide 21.8 mmol/L (21.0-32.0) 02/23/25 06:05 Anion Gap 9 (5-15) 02/23/25 06:05 BUN 11 mg/dL (4-19) 02/23/25 06:05 Creatinine 0.57 mg/dL (0.70-1.20) L 02/23/25 06:05 Est GFR (MDRD) Non-Af 98 (>60) 02/23/25 06:05 BUN/Creatinine Ratio 18.8 RATIO (10-20) 02/23/25 06:05 Glucose 102 mg/dL (70-99) H 02/23/25 06:05 Vancomycin Trough 16.7 ug/mL (5.0-15.0) H 02/24/25 01:50 Goal Trough Goal Trough: 15-20 mcg/mL Pharmacy Plan for Drug Dosing Pharmacy Plan for Drug Dosing: Pharmacy Service will continue to monitor and adjust dosing as required. TROUGH 16.7 @ 10.5 HOURS. NO CHANGES, FOLLOW UP TROUGH IN 2 DAYS Follow-Up Labs Follow-Up Labs: Trough: Vancomycin Date/Time Labs Ordered Labs to be done on [date and time ordered]: 02/26 @ 4598
[2025-02-24] MEDS: 0.9% Saline Lock 10 ML Syringe IV (02:38)
[2025-02-24 02:47] VITALS: BP 133/75; PULSE 90; RESP 16; TEMP 36.6; O2SAT 96
[2025-02-24 03:00] VITALS: PULSE 94
[2025-02-24] MEDS: oxyCODONE 5 MG Tablet PO ×3 (04:53→14:09)
[2025-02-24] MEDS: Ampicillin/Sulbactam 3 GM in 0.9% Normal Saline (100mL MB+) 100 ML IV (05:43)
[2025-02-24] MEDS: Acetaminophen 500 MG Tablet 1000 MG PO ×2 (05:45→14:10)
[2025-02-24 05:46] VITALS: BMI 37.2
[2025-02-24] MEDS: metroNIDAZOLE 500 MG/100 ML BAG 100 MG IV (06:50)
[2025-02-24] MEDS: ALPRAZolam 0.5 MG Tablet PO ×2 (06:54→14:09)
[2025-02-24 07:00] VITALS: PULSE 89
[2025-02-24 07:07] VITALS: PULSE 88; RESP 20; O2SAT 96
[2025-02-24] MEDS: Budesonide Respules 0.5 MG/2 ML AMPUL.NEB. INHALATION (07:07)
[2025-02-24 08:09] LABS: Anion Gap 9 (5-15); BUN 9 mg/dL (4-19); BUN/Creat Ratio 14.9 RATIO (10-20); Calcium,Total 7.9 mg/dL (7.6-11.0); Carbon Dioxide 22.8 mmol/L (21.0-32.0); Chloride 104 mmol/L (98-108); Creatinine, Serum 0.57 mg/dL (0.70-1.20); EST Glomerular Filtration Rate 98 (>60); Estimated Creatinine Clearance 63.68 ml/min (50-250); Glucose 100 mg/dL (70-99); Potassium 3.5 mmol/L (3.3-5.1); Sodium Level 136 mmol/L (133-145)
--- NOTE | 2025-02-24 08:15 | DCINST_ITS ---
Discharge Instructions Diet Discharge Diet: No restrictions DC O2, CPAP, BIPAP needs Home O2 Discharge instructions: Yes Type of respiratory needs?: Oxygen Oxygen frequency: Continuous Continuous oxygen liters per minute: 3L Dressing / Incision Discharge Activity: Return to Normal Activity Weight Bearing Status: Full weight bearing Dressing / Incision Call your doctor if your incision/area has: Continuous Slow Oozing, Sudden Increased Bleeding, Increased Pain/ Swelling and Foul Smelling Discharge Additional Dressing/Incision Instructions:: Apply dry gauze to incision area, change twice daily Follow Up Care Test Results: Test results from this visit will be discussed in further detail at your follow- up appointment, if applicable. Discharge Plan Admission Admit Date/Time: 02/14/25 17:05 Primary Reason for Your Visit: Vascular insufficiency left leg Attending Provider: Shine Coley Primary Care Provider: Nate Gray Consulting Providers: Mari Johnson; Elena Moore; Alec Lopez; Dk Mckeon Discharge Orders/Prescriptions Prescriptions: New rivaroxaban [Xarelto] 2.5 mg Tablet 2.5 mg PO BID Qty: 60 0RF vancomycin 125 mg capsule 125 mg PO Q6H 10 Days Qty: 40 0RF Continued (DME) miscellaneous medical supply Misc See Rx Instructions .Route Qty: 1 0RF Rx Instructions: Shower/Bath Chair/stool carvedilol 25 MG tablet 25 mg PO BID spironolactone 25 MG tablet 25 mg PO DAILY alprazolam 0.5 mg tablet 0.5 mg PO TID acetaminophen 500 mg Tablet 1,000 mg PO Q6H PRN (Reason: PAIN ) pantoprazole 40 mg Tablet,Delayed Release (Dr/Ec) 40 mg PO BID 30 Days Qty: 60 0RF lisinopril 40 mg tablet 40 mg PO QHS aspirin 81 mg Tablet,Delayed Release (Dr/Ec) 81 mg PO BREAKFAST Qty: 0 0RF guaifenesin [Mucinex] 1,200 mg tablet extended release 12hr 1,200 mg PO BID PRN (Reason: MUCOUS) gabapentin 600 mg tablet 600 mg PO 4X/DAY tramadol 50 mg tablet 50 mg PO 4X/DAY PRN (Reason: PAIN ) Centrum Adult 50 Plus 80 mcg tablet,chewable 1 tab PO DAILY atorvastatin 80 mg tablet 80 mg PO QHS Qty: 90 3RF ipratropium-albuterol 0.5 mg-3 mg(2.5 mg base)/3 mL solution for nebulization 3 ml inhalation Q4H PRN PRN (Reason: SOB &/OR WHEEZING) Qty: 180 6RF clopidogrel 75 mg tablet 75 mg PO DAILY Qty: 90 3RF albuterol sulfate [Ventolin HFA] 90 mcg/actuation HFA aerosol inhaler 2 puff inhalation Q4H PRN (Reason: shortness of breath or wheezing) Qty: 18 6RF Trelegy Ellipta 200-62.5-25 mcg blister with device 1 inh inhalation DAILY Qty: 60 11RF Changed hydrocodone-acetaminophen 5-325 mg tablet 1 tab PO TID PRN (Reason: pain) Qty: 1 0RF Patient Comments: takes prn Referrals / Follow Up: Alec Lopez MD [Med Staff - Active Staff] - In 1 Week Nate Gray MD [Primary Care Provider] - Disposition Disposition (needs filled in before D/C Order can be placed): Home, Self Care
[2025-02-24 08:30] LABS: Absolute Lymphocyte Count 1.09 X10^3/uL (0.83-4.51); Absolute Neutrophil Count 17.8 X10^3/uL (2.0-7.7); Basophil# 0.06 X10^3/uL; Basophil% 0.3 % (0-1); Eosinophil# 0.32 X10^3/uL; Eosinophils% 1.5 % (0-5); Hematocrit 25.7 % (37-47); Lymphocyte # 1.09 X10^3/ul (0.83-4.51); Lymphocyte % 5.3 % (19-41); Mean Corp Hgb Conc 31.1 g/dL (32-36); Mean Corpuscular Hgb 26.8 pg (27.0-32.0); Mean Corpuscular Volume 86.2 fL (81-99); Mean Platelet Vol. 9.5 fl (6.2-12.0); Monocyte% 5.8 % (0-10); NRBC Flagged by Analyzer 0.1 % (0-5); Neutrophil # 17.84 X10^3/uL (2.7-7.7); Neutrophil % 85.9 % (47-70); Platelet Count 390 K/mm3 (150-450); RBC Distribution Width CV 18.8 % (11.6-14.6); RBC Distribution Width SD 59.1 fl (35.1-43.9); Red Blood Count 2.98 M/mm3 (4.2-5.4); White Blood Count 20.8 K/mm3 (4.4-11.0)
--- NOTE | 2025-02-24 08:44 | DS.PCM_ITS ---
Providers Date of Admission: 02/14/25 Date of Discharge: 02/24/25 Primary Care Physician: Dr. Nate Gray MD Consultations 02/14/25 17:43 Consult: Vascular Surgery Routine Consulting Provider: Alec Lopez Reason for Consult: concern for LL limb ischemia EMERGENT Consult: No Notified: Yes Date Notified: 02/14/25 Time Notified: 17:22 Method of Notification: ED Physician Initiated 02/15/25 14:38 Consult: Onc/Wound/broadcast journalist Routine Comment: 02/23/25 08:55 Consult: Infectious Disease Routine Consulting Provider: Dk Mckeon Reason for Consult: leukocystosis EMERGENT Consult: No Notified: Yes Date Notified: 02/23/25 Time Notified: 08:55 Method of Notification: Verbal Reason For Visit: ISCHEMIC LEFT FOOT AND LEG Diagnosis Discharge Diagnosis (1) Cellulitis of left foot: Status: Acute Code(s): L03.116 - Cellulitis of left lower limb (2) Critical limb ischemia of left lower extremity: Status: Acute Code(s): I70.222 - Atherosclerosis of [place] arteries of extremities with rest pain, left leg Plan 1. Ischemia of the left lower leg secondary to severe peripheral vascular disease-patient underwent surgery-left external iliac to profunda bypass with cadaver femoral-popliteal artery, left femoral to posterior tibial bypass with PTFE and Skelton cuff. PT and OT are seeing the patient, I will reevaluate her this afternoon for possible discharge after she is seen by PT and OT #2 cellulitis of the left foot-continue IV Unasyn #3 chronic obstructive pulmonary disease-patient tells this examiner that she is through with smoking, patient is currently on aerosol treatments #4 peripheral vascular disease-patient is currently on a heparin drip, Plavix and aspirin. In addition patient is taking statin. #5 chronic hypoxic respiratory failure secondary to COPD-patient's pulse ox will be monitored, oxygen will be adjusted as needed-she is currently on 2 L #6 C. difficile colitis-not present on admission Total clinical time spent by myself addressing the patient's medical issues, reviewing all of her data, and collaborating with patient's care team: 35 minutes Medications at Discharge Home Medications carvedilol 25 mg tablet 25 mg PO BID HEART 05/28/19 spironolactone 25 mg tablet 25 mg PO DAILY BLOOD PRESSURE 05/28/19 alprazolam 0.5 mg tablet 0.5 mg PO TID ANXIETY 02/12/21 acetaminophen 500 mg tablet 1,000 mg PO Q6H PRN PAIN 07/19/22 pantoprazole 40 mg tablet,delayed release 40 mg PO BID GERD 30 days #60 tabs 10/12/22 guaifenesin 1,200 mg tablet, extended release 12 hr (Mucinex) 1,200 mg PO BID PRN MUCOUS 07/02/23 lisinopril 40 mg tablet 40 mg PO QHS BLOOD PRESSURE 07/14/23 aspirin 81 mg tablet,delayed release 81 mg PO BREAKFAST HEART HEALTH #0 tabs 07/19/23 gabapentin 600 mg tablet 600 mg PO 4X/DAY NERVE PAIN 11/06/23 tramadol 50 mg tablet 50 mg PO 4X/DAY PRN PAIN 11/06/23 multivitamin with minerals-folic acid 80 mcg chewable tablet (Centrum Adult 50 Plus) 1 tab PO DAILY supplement 01/30/24 atorvastatin 80 mg tablet 80 mg PO QHS CHOLESTEROL #90 tabs 02/27/24 miscellaneous medical supply #1 ea 06/19/24 ipratropium 0.5 mg-albuterol 3 mg (2.5 mg base)/3 mL nebulization soln 3 ml inhalation Q4H PRN PRN SOB &/OR WHEEZING #180 mL 09/01/24 albuterol sulfate 90 mcg/actuation aerosol inhaler (Ventolin HFA) 2 puff inhalation Q4H PRN shortness of breath or wheezing #18 grams 12/15/24 fluticasone fur. 200 mcg-umeclid 62.5 mcg-vilant 25 mcg inhalat.powder (Trelegy Ellipta) 1 inh inhalation DAILY ASTHMA #60 ea 12/15/24 hydrocodone-acetaminophen 5-325mg 5mg-325mg 1 tab PO TID PRN pain #1 TAB 02/24/25 rivaroxaban 2.5 mg tablet (Xarelto) 2.5 mg PO BID #60 tabs 02/24/25 tramadol 100 mg tablet 100 mg PO Q6H PRN pain 7 days #28 tabs 02/24/25 vancomycin 125 mg capsule 125 mg PO Q6H 10 days #40 caps 02/24/25 Hospital Course Operations - (Bypass grafting to left leg) Procedures None Summary of Care Provided Minutes Spent on Discharge: 32 Hospital Course: 70-year-old white female was seen in the emergency room at [facility] with complaints of increasing pain in her left leg, patient has a history of known vascular disease and continues to smoke at home. Labs obtained showed a white blood cell count of 13 and hemoglobin of 9.3, Dr. Lopez (vascular surgery) and the patient was admitted to the hospitalist service with a vascular consult. The equipment for a bypass of the patient's left leg was not available for several days and the patient was kept on IV antibiotics and monitor. On 02/19/2025, patient underwent left external iliac to profunda bypass with cadaver femoral-popliteal artery left femoral to posterior tibial bypass with PTFE and Skelton cuff, there were no complications from the surgery. Patient's white blood cell count did elevate after the surgery and patient continued on antibiotics for her foot and the actual etiology of this white count elevation was not known until the day of discharge-it was revealed that the patient had had diarrhea the weekend before and stool was positive for C. difficile toxin and organism. Patient was placed on oral vancomycin. On 02/24/2025, patient was seen and examined: On examination she appeared in good health and spirits, she does not appear to be in any distress. Vital signs as documented. Skin warm and dry and without overt rashes. Neck without JVD, thyroid appears normal, trachea is midline, neck is supple. Lungs clear, normal air movement was noted. Heart exam notable for regular rhythm, normal sounds and absence of murmurs, rubs or gallops. Abdomen unremarkable and without evidence of organomegaly, masses, or abdominal aortic enlargement, bowel sounds are present in all 4 quadrants, no abdominal tenderness was noted. Extremities nonedematous, no cyanosis was noted, no clubbing was noted. Neuro: Cranial nerves II through XII are grossly intact, no focal motor deficits were noted, sensation to light touch and pinprick is intact, motor exam 5/5 throughout. Psych: Patient is alert and oriented x3, she does not appear anxious or depressed, she does not appear agitated. Patient was discharged home in stable condition on 02/24/2025. Weight / BMI Weight Weight: 83.7 kg Body Mass Index (BMI) 37.2 ABG / Lab / Microbiology Data 02/24/25 07:57 02/24/25 06:51 Laboratory: Laboratory Results - last 24 hr 02/24/25 01:50: Vancomycin Trough 16.7 H 02/24/25 06:51: Sodium 136, Potassium 3.5, Chloride 104, Carbon Dioxide 22.8, Anion Gap 9, BUN 9, Creatinine 0.57 L, Estim Creat Clear Calc 63.68, Est GFR (MDRD) Non-Af 98, BUN/Creatinine Ratio 14.9, Glucose 100 H, Calcium 7.9 02/24/25 07:57: WBC 20.8 H, RBC 2.98 L, Hgb 8.0 L, Hct 25.7 L, MCV 86.2, MCH 26.8 L, MCHC 31.1 L, RDW Std Deviation 59.1 H, RDW Coeff of Renea 18.8 H, Plt Count 390, MPV 9.5, Immature Gran % (Auto) 1.200 H, Neut % (Auto) 85.9 H, Lymph % (Auto) 5.3 L, [place] % (Auto) 5.8, Eos % (Auto) 1.5, Baso % (Auto) 0.3, Absolute Neuts (auto) 17.8 H, Absolute Lymphs (auto) 1.09, Nucleated RBC % 0.1 Microbiology: Microbiology 02/24/25 02:05 Stool Enteric Bacteriology - Final 02/24/25 02:05 Stool C. difficile GDH Antigen & Toxins - Final 02/24/25 02:05 Stool Clostridioides difficile (PCR) - Final D/C Instructions Discharge Diet: No restrictions Weight Bearing Status: Full weight bearing Call your doctor if your incision/area has: Continuous Slow Oozing, Sudden Increased Bleeding, Increased Pain/ Swelling and Foul Smelling Discharge Additional Dressing/Incision Instructions: Apply dry gauze to incision area, change twice daily DC O2, CPAP, BIPAP Needs Home O2 Discharge instructions: Yes Type of respiratory needs?: Oxygen Oxygen frequency: Continuous Continuous oxygen liters per minute: 3L DC home with Oxygen: Yes Home O2 MD Review: I have reviewed the oxygen testing, and the patient qualifies for home oxygen equipment and portability. The patient is mobile in the home and the community. Meaningful Use Info Meaningful Use Meaningful Use Diagnoses (Choose all that apply): None applicable Ischemic Stroke Statin Dosing Therapy Reference: STATIN DOSE THERAPY REFERENCE: * Patients > 75 years receive moderate or high dose statin therapy. * Patients 75 years or YOUNGER should receive HIGH intensity statin dose unless contraindicated. You will be required to document reason for non-treatment if statin daily dose does not meet guidelines. HIGH DOSE STATIN THERAPY DAILY Atorvastatin > than or = to 40 mg Rosuvastatin > than or = to 20 mg Amlodipine + Atorvastatin > than or = to 2.5/40 mg Ezetimibe + Simvastatin 10/80 mg Simvastatin 80mg Discharge Plan Admission Admit Date/Time: 02/14/25 17:05 Primary Reason for Your Visit: Vascular insufficiency left leg Attending Provider: Shine Coley Primary Care Provider: Nate Gray Consulting Providers: Mari Johnson; Elena Moore; Alec Lopez; Dk Mckeon Discharge Orders/Prescriptions Prescriptions: New rivaroxaban [Xarelto] 2.5 mg Tablet 2.5 mg PO BID Qty: 60 0RF vancomycin 125 mg capsule 125 mg PO Q6H 10 Days Qty: 40 0RF tramadol 100 mg tablet 100 mg PO Q6H PRN (Reason: pain) 7 Days Qty: 28 0RF Continued (DME) miscellaneous medical supply Misc See Rx Instructions .Route Qty: 1 0RF Rx Instructions: Shower/Bath Chair/stool carvedilol 25 MG tablet 25 mg PO BID spironolactone 25 MG tablet 25 mg PO DAILY alprazolam 0.5 mg tablet 0.5 mg PO TID acetaminophen 500 mg Tablet 1,000 mg PO Q6H PRN (Reason: PAIN ) pantoprazole 40 mg Tablet,Delayed Release (Dr/Ec) 40 mg PO BID 30 Days Qty: 60 0RF lisinopril 40 mg tablet 40 mg PO QHS aspirin 81 mg Tablet,Delayed Release (Dr/Ec) 81 mg PO BREAKFAST Qty: 0 0RF guaifenesin [Mucinex] 1,200 mg tablet extended release 12hr 1,200 mg PO BID PRN (Reason: MUCOUS) gabapentin 600 mg tablet 600 mg PO 4X/DAY tramadol 50 mg tablet 50 mg PO 4X/DAY PRN (Reason: PAIN ) Centrum Adult 50 Plus 80 mcg tablet,chewable 1 tab PO DAILY atorvastatin 80 mg tablet 80 mg PO QHS Qty: 90 3RF ipratropium-albuterol 0.5 mg-3 mg(2.5 mg base)/3 mL solution for nebulization 3 ml inhalation Q4H PRN PRN (Reason: SOB &/OR WHEEZING) Qty: 180 6RF albuterol sulfate [Ventolin HFA] 90 mcg/actuation HFA aerosol inhaler 2 puff inhalation Q4H PRN (Reason: shortness of breath or wheezing) Qty: 18 6RF Trelegy Ellipta 200-62.5-25 mcg blister with device 1 inh inhalation DAILY Qty: 60 11RF Changed hydrocodone-acetaminophen 5-325 mg tablet 1 tab PO TID PRN (Reason: pain) Qty: 1 0RF Patient Comments: takes prn Discontinued clopidogrel 75 mg tablet 75 mg PO DAILY Qty: 90 3RF Referrals / Follow Up: Alec Lopez MD [Med Staff - Active Staff] - 03/11/25 2:00 pm Nate Gray MD [Primary Care Provider] - 03/03/25 11:00 am Disposition Disposition (needs filled in before D/C Order can be placed): Home, Self Care Charges/Coding Visit Charges Inpatient E&M: 88534 Disch Hosp >30min
[2025-02-24 08:45] VITALS: BP 131/75; PULSE 90; RESP 16; TEMP 37.1; O2SAT 99
[2025-02-24] MEDS: Pantoprazole Sodium 40 MG Tablet PO (10:04)
[2025-02-24] MEDS: Gabapentin 600 MG Tablet PO ×2 (10:04→14:09)
[2025-02-24] MEDS: Rivaroxaban 2.5 MG Tablet PO (10:04)
[2025-02-24] MEDS: Lactobacillis Acidophilus 1 CAP PO ×2 (10:05→14:10)
[2025-02-24] MEDS: Clopidogrel Bisulfate 75 MG Tablet PO (10:05)
[2025-02-24] MEDS: Aspirin E.C. 81 MG Tablet PO (10:05)
[2025-02-24] MEDS: Carvedilol 25 MG Tablet PO (10:05)
--- NOTE | 2025-02-24 12:29 | CASEMGMT ---
Patient has order for discharge. Patient is discharging on Vanco capsules and Xarelto, RN CM called [facility] to inquire about copay, no copay for prescriptions. RN CM in to discuss needs at discharge. Patient denies needs or help at discharge and declined HHC or outpatient therapy. Patient had no further questions or concerns. RN CM encouraged patient to follow up with vascular and PCP, patient voiced understanding.
== END 2025-02-24 14:55 | disposition home or self-care (01) | DRG 271 ==
LOC: ED 15:42 → PCU 17:08 → ICU 02-19 09:35 → PCU 02-21 13:43
PROVIDERS: Anesthesiology; Internal Medicine; Physician Assistant; Surgery Trauma Surgery; Admitting Provider Internal Medicine; Emergency Provider Emergency Medicine; PCP Internal Medicine; Visit Provider Internal Medicine
PROC: 041 Lower Arteries, Bypass (ICD-10-PCS; principal; 2025-02-19 08:45)
DX: I70.222 Atherosclerosis of native arteries of extremities with rest pain, left leg (principal); L03.116 Cellulitis of left lower limb; A04.72 Enterocolitis due to Clostridium difficile, not specified as recurrent; J96.11 Chronic respiratory failure with hypoxia; L97.528 Non-pressure chronic ulcer of other part of left foot with other specified severity; J44.9 Chronic obstructive pulmonary disease, unspecified; F32.A Depression, unspecified; I10 Essential (primary) hypertension; D64.9 Anemia, unspecified; Z68.33 Body mass index [BMI] 33.0-33.9, adult; Z95.828 Presence of other vascular implants and grafts; L89.609 Pressure ulcer of unspecified heel, unspecified stage; K21.9 Gastro-esophageal reflux disease without esophagitis; D72.829 Elevated white blood cell count, unspecified; I25.10 Atherosclerotic heart disease of native coronary artery without angina pectoris; E78.00 Pure hypercholesterolemia, unspecified; F17.210 Nicotine dependence, cigarettes, uncomplicated; F41.9 Anxiety disorder, unspecified; M19.90 Unspecified osteoarthritis, unspecified site; G62.9 Polyneuropathy, unspecified; Z99.81 Dependence on supplemental oxygen; Z79.82 Long term (current) use of aspirin; Z79.02 Long term (current) use of antithrombotics/antiplatelets; G89.29 Other chronic pain; E66.9 Obesity, unspecified; Z79.51 Long term (current) use of inhaled steroids; Z79.891 Long term (current) use of opiate analgesic; Z87.891 Personal history of nicotine dependence; Z79.01 Long term (current) use of anticoagulants; Z82.49 Family history of ischemic heart disease and other diseases of the circulatory system; Z79.2 Long term (current) use of antibiotics; Z79.899 Other long term (current) drug therapy; Z88.5 Allergy status to narcotic agent; Z90.49 Acquired absence of other specified parts of digestive tract
CPT/HCPCS: 36200; 36245; 36415; 37224; 37252; 71045; 75625; 75710; 76937; 80048; 80053; 80202; 83605; 83735; 84100; 85014; 85018; 85025; 85347; 85610; 85730; 86850; 86900; 86901; 87493; 87506; 93005; 94640; 97110; 97116; 97162; 97166; 97530; 97535; 97803; 99152; 99153; 99285; 99406; A4648; C1725; C1753; C1760; C1768; C1769; C1894; P9016; Q9967; A4216; C1751; J0295; J2405

== ENCOUNTER 2025-02-19 08:00 | Outpatient (CLI) | payer MEDICARE, SELFPAY | END 2025-02-19 19:00 | disposition home or self-care (01) | LOC: SDC 08-06 08:02 | PROVIDERS: PCP Internal Medicine; Visit Provider Surgery Trauma Surgery | DX: Z00.00 Encounter for general adult medical examination without abnormal findings (principal) | CPT/HCPCS: A4216; J2405 ==

== ENCOUNTER 2025-03-10 08:50 | Emergency (ER) | payer MEDICARE, MEDICAID, SELFPAY ==
[2025-03-10 08:51] VITALS: BP 122/64; PULSE 95; RESP 18; TEMP 36.6; O2SAT 96; BMI 36.7
--- NOTE | 2025-03-10 08:52 | EKG12_ITS ---
Test Reason : BLOOD LOSS Blood Pressure : */* mmHG Vent. Rate : 98 BPM Atrial Rate : 98 BPM P-R Int : 142 ms QRS Dur : 62 ms QT Int : 334 ms P-R-T Axes : -1 77 61 degrees QTcB Int : 426 ms Sinus rhythm with Premature atrial complexes Low voltage QRS Borderline ECG Confirmed by HUGO KULKARNI, AMIRA ([id number]), greeting card editor DRISS GOMEZ ([id number]) on 03/16/2025 7:04:55 AM Referred By: Confirmed By: AMIRA ARIAS MD
--- NOTE | 2025-03-10 08:56 | EX.ED.CRITCA ---
HPI History of Present Illness Chief Complaint: Wound Detail of Chief Complaint: Dehiscence of left leg surgical site with arterial bleeding Informant: patient and other Onset/Context/Timing Onset: Today (Began to bleed at home at 0600. Began to bleed in Dr. Lopez's office when seen by CREDIT SUPPORT COUNSELOR) Context: Sudden Onset Timing: Intermittent Quality: Arterial blood Location: Patient status post [place] popliteal bypass surgery February 20 on Xarelto Mechanism/Context: Yes other Current Severity: Gone (Tourniquet time 0845) Maximum Severity: Severe Worsened by: Dehiscence of wound and disruption of anastomosis site Relieved by: Tourniquet Narrative Narrative: Patient is a 70-year-old woman who is very noncompliant. She had an appointment for postop follow-up last week which she did not make. She was seen by Dr. Lopez's nurse practitioner. She states she remove the dressing. Goal was to possibly put a wound VAC on versus wet-to-dry dressing changes. When Ella returns to the room after getting supplies patient had obvious arterial bleed. Patient states she had prior to going to Dr. Lopez's office. She has not eaten since last night. She had a half a cup of coffee at 0500 this morning with cream. Patient was hypotensive in Dr. Lopez's office. Patient states she feels sick. Prior similar symptoms: No Recent Illness/Hospitalization: Yes PFSH PFSH Medical History PAOD (peripheral arterial occlusive disease) Atherosclerosis of [place] arteries of extremities with rest pain, bilateral legs Leukocytosis Cellulitis of left foot Critical limb ischemia of left lower extremity Atherosclerosis of [place] arteries of extremities with rest pain, left leg Pain of left leg Anemia Smoking greater than 30 pack years GERD (gastroesophageal reflux disease) GI bleed Decrease in appetite Wears hearing aid History of steroid therapy Arthritis PVD (peripheral vascular disease) Syncope Dietary restriction Gastric reflux Leg cramps Anxiety disorder Wears dentures Low iron High cholesterol History of ulceration On home oxygen therapy Post-menopausal Diverticulitis Back pain due to injury Chronic headaches History of stress test Wears glasses Chronic pain Shortness of breath Smoker History of cardiovascular stress test Leg pain S/P arteriogram of extremity Essential hypertension COPD (chronic obstructive pulmonary disease) Incisional hernia without mention of obstruction or gangrene Impaired fasting glucose History of pelvic hematoma Duodenal ulcer Clostridium difficile colitis Closed fracture of fifth metatarsal bone of left foot Injury, spleen, with capsular tears Pseudocyst of pancreas Peptic ulcer disease SBO (small bowel obstruction) H/O spleen injury Asthma Hyperlipemia Alcohol abuse Home Medications ?Medication ?Instructions ?Recorded ?Last Taken ?Type carvedilol 25 mg tablet 25 mg PO BID HEART 05/28/19 09/15/24 History spironolactone 25 mg tablet 25 mg PO DAILY BLOOD PRESSURE 05/28/19 09/14/24 History alprazolam 0.5 mg tablet 0.5 mg PO TID ANXIETY 02/12/21 02/11/25 History acetaminophen 500 mg tablet 1,000 mg PO Q6H PRN PAIN 07/19/22 09/14/24 History pantoprazole 40 mg tablet,delayed 40 mg PO BID GERD 30 days #60 tabs 10/12/22 09/14/24 Rx release guaifenesin 1,200 mg tablet, 1,200 mg PO BID PRN MUCOUS 07/02/23 06/10/24 History extended release 12 hr (Mucinex) lisinopril 40 mg tablet 40 mg PO QHS BLOOD PRESSURE 07/14/23 09/14/24 History aspirin 81 mg tablet,delayed 81 mg PO BREAKFAST [facility] 07/19/23 02/11/25 Rx release #0 tabs gabapentin 600 mg tablet 600 mg PO 4X/DAY NERVE PAIN 11/06/23 02/11/25 History tramadol 50 mg tablet 50 mg PO 4X/DAY PRN PAIN 11/06/23 09/15/24 History multivitamin with minerals-folic 1 tab PO DAILY supplement 01/30/24 09/15/24 History acid 80 mcg chewable tablet (Centrum Adult 50 Plus) atorvastatin 80 mg tablet 80 mg PO QHS CHOLESTEROL #90 tabs 02/27/24 09/14/24 Rx miscellaneous medical supply #1 ea 06/19/24 Unknown Rx ipratropium 0.5 mg-albuterol 3 mg 3 ml inhalation Q4H PRN PRN SOB 09/01/24 09/15/24 Rx (2.5 mg base)/3 mL nebulization &/OR WHEEZING #180 mL soln albuterol sulfate 90 mcg/actuation 2 puff inhalation Q4H PRN 12/15/24 Unknown Rx aerosol inhaler (Ventolin HFA) shortness of breath or wheezing #18 grams fluticasone fur. 200 mcg-umeclid 1 inh inhalation DAILY ASTHMA #60 12/15/24 Unknown Rx 62.5 mcg-vilant 25 mcg ea inhalat.powder (Trelegy Ellipta) hydrocodone-acetaminophen 5-325mg 1 tab PO TID PRN pain #1 TAB 02/24/25 02/13/25 Rx 5mg-325mg rivaroxaban 2.5 mg tablet (Xarelto) 2.5 mg PO BID #60 tabs 02/24/25 Unknown Rx tramadol 100 mg tablet 100 mg PO Q6H PRN pain 7 days #28 02/24/25 Unknown Rx tabs vancomycin 125 mg capsule 125 mg PO Q6H 10 days #40 caps 02/24/25 Unknown Rx Allergy/AdvReac Type Severity Reaction Status Date / Time amlodipine AdvReac Intermediate Nausea/Vom/ Verified 03/10/25 08:55 Diarrhea clonidine AdvReac Mild Nausea/Vom/ Verified 03/10/25 08:55 Diarrhea adhesive AdvReac Rash Verified 03/10/25 08:55 codeine AdvReac Nausea Verified 03/10/25 08:55 Family History Mother Heart disease Hypertension Diabetes Sister Hypertension Brother Hypertension Sister Hypertension Cervical cancer Brother Pancreatic cancer Surgical History S/P femoral-popliteal bypass surgery History of appendectomy History of esophagogastroduodenoscopy (EGD) Hx of colonoscopy Hx of cervical spine surgery H/O: H/O colostomy History of hernia repair Social History household members: spouse housing: house Smoking Status: Current every day smoker tobacco type: cigarettes Electronic Cigarette Use: not used second hand exposure: Yes alcohol intake: current alcohol intake frequency: a few times a week substance use type: does not use caffeine: Yes what type of physical activity do you participate in: bicycling frequency: 1-2 times per week ROS ROS ED Constitutional Constitutional ED: Denies chills, fever(s) or subjective Eyes Eyes: Denies blurry vision or change in vision ENT ENT ED: Denies rhinorrhea or sore throat Cardiovascular Cardiovascular: Reports palpitations; Denies chest pain or racing heartbeat Respiratory/Chest Respiratory/Chest: Denies cough, dyspnea or dyspnea on exertion Gastrointestinal Gastrointestinal: Denies abdominal pain, nausea or vomiting Musculoskeletal Musculoskeletal: Denies arthralgias or myalgias Integumentary Reports other Details: Dehiscence of surgical site with arterial bleeding Neurologic Neurologic: Denies weakness Hematologic/Lymphatic Hematologic/Lymphatic: Reports easy bleeding and easy bruising EXAM Physical Exam Const Vital Signs: 03/10/25 08:51 03/10/25 09:21 03/10/25 09:30 Temperature 98 F Temperature Source Temporal Pulse Rate 95 94 94 Respiratory Rate 18 18 18 Blood Pressure 122/64 H 123/71 H 123/71 H Blood Pressure Mean 83 88 88 Pulse Ox 96 96 96 Oxygen Delivery Method Room Air Room Air Room Air 03/10/25 10:07 Temperature 98 F Temperature Source Pulse Rate 93 Respiratory Rate 18 Blood Pressure 122/80 H Blood Pressure Mean 94 Pulse Ox 97 Oxygen Delivery Method Positive well nourished and well developed Constitutional Narrative: Patient's BMI is 36.8. She appears very pale. She is not hypotensive at this time. General Appearance ED: well developed HEENT normocephalic and atraumatic Eyes PERRL and EOMs intact bilaterally General Eye ED: Yes pale conjunctiva; Negative for scleral icterus Neck full ROM, no lymphadenopathy, supple and no JVD Resp Resp Narrative: Patient is in no respiratory distress. Lungs are clear to auscultation. Breath sounds are symmetric. Cardio regular rate, regular rhythm, S1 normal heart sound, S2 normal heart sound and no murmurs GI non-tender, non-distended and no masses Inspection: abdominal distention Palpation: soft Back/Spine no CVA tenderness Extremity Extremity Narrative: Patient has a tourniquet above the knee left lower extremity. Patient's leg was wrapped with Yazan wrap and padding. Neuro oriented x3 and CN's II-XII intact bilaterally Sensorium / Orientation: alert Psych Mood & Affect: anxious MDM MDM MDM Narrative Medical decision making narrative: I was informed that Dr. Lopez is out of town. Patient requested [employer] [employer] since she is been there before. Spoke with the vascular surgeon on-call. Patient will be emergent transfer ED to ED to expedite patient's care. Vascular surgery made aware that tourniquet time is 0845. He was made aware that she has not had any to eat since last evening. She had half a cup of coffee at 5 AM. Patient will receive reversing agent for the Xarelto. She has been typed and screened and can change to type and cross depending on H&H. Patient received 4160 units of human prothrombin complex to reverse Xarelto. Lab Data Attestation: I reviewed the patient's lab results. Lab results narrative: H&H is 8.3 and 27.0. H&H on 03/04/2025 was 8.0 25.7. Since patient is not hypotensive she will not receive blood at this time. Patient has a positive blood. Lactate is normal at 1.7. Glucose is slightly elevated at 107. Labs: Laboratory Results - last 24 hr 03/10/25 03/10/25 03/10/25 08:55 09:00 09:15 WBC 21.4 H RBC 3.11 L Hgb 8.3 L Hct 27.0 L MCV 86.8 MCH 26.7 L MCHC 30.7 L RDW Std Deviation 59.7 H RDW Coeff of Renea 18.6 H Plt Count 528 H MPV 8.8 Sodium 138 Potassium 4.1 Chloride 101 Carbon Dioxide 26.0 Anion Gap 11 BUN 10 Creatinine 0.93 Estim Creat Clear Calc 53.60 Est GFR (MDRD) Non-Af 66 BUN/Creatinine Ratio 10.4 Glucose 107 H Lactic Acid 1.9 Calcium 8.7 Blood Type A POSITIVE Antibody Screen NEGATIVE EKG Initial EKG: Attestation: I personally reviewed and interpreted this EKG as follows: Interpretation: Sinus Rhythm (Rate is 98. There is no acute ischemic changes noted. Voltage is low. AR interval 242 ms Rickers duration 62 ms. QT duration 30 and 34 ms. [place] is normal. There is a premature beat noted.) and Sinus Tachycardia Management Discussion w/another healthcare provider: [employer] Business Development Officer (Spoke with Dr. Palomares, vascular surgeon on-call for [facility].) and Other Treatment and Re-Evaluation Narrative: Initially patient received 50 mg of fentanyl because she was hypotensive. Since patient is not hypotensive still complaining of leg which is probably ischemia due to the tourniquet she received 0.5 mg of Dilaudid. (927) Care was transferred to [facility] physician. Departure time per nurses notes. Critical Care Time Critical Care Time: Yes Critical care time (excluding procedures): 30-74 minutes (33), Including time spent: (History, physical, documentation, discussion with Dr. Lopez's nurse practitioner, discussion with transfer line at [facility] and vascular surgeon), Discussing w/Patient &/or Family/Product Builder, Discussing w/Consultants and Arranging Admission or Transfer Discharge Plan Triage Chief Complaint: Wound ED Provider: Jayy Michael Dx/Rx/DC Orders Clinical Impression: Arterial hemorrhage, Anxiety, COPD (chronic obstructive pulmonary disease), PAOD (peripheral arterial occlusive disease), Acute hypotension, Chronic hypoxemic respiratory failure, Anticoagulant long-term use Prescriptions: No Action (DME) miscellaneous medical supply Misc See Rx Instructions .Route Qty: 1 0RF Rx Instructions: Shower/Bath Chair/stool carvedilol 25 MG tablet 25 mg PO BID spironolactone 25 MG tablet 25 mg PO DAILY alprazolam 0.5 mg tablet 0.5 mg PO TID acetaminophen 500 mg Tablet 1,000 mg PO Q6H PRN (Reason: PAIN ) pantoprazole 40 mg Tablet,Delayed Release (Dr/Ec) 40 mg PO BID 30 Days Qty: 60 0RF lisinopril 40 mg tablet 40 mg PO QHS aspirin 81 mg Tablet,Delayed Release (Dr/Ec) 81 mg PO BREAKFAST Qty: 0 0RF guaifenesin [Mucinex] 1,200 mg tablet extended release 12hr 1,200 mg PO BID PRN (Reason: MUCOUS) gabapentin 600 mg tablet 600 mg PO 4X/DAY tramadol 50 mg tablet 50 mg PO 4X/DAY PRN (Reason: PAIN ) Centrum Adult 50 Plus 80 mcg tablet,chewable 1 tab PO DAILY rivaroxaban [Xarelto] 2.5 mg Tablet 2.5 mg PO BID Qty: 60 0RF vancomycin 125 mg capsule 125 mg PO Q6H 10 Days Qty: 40 0RF hydrocodone-acetaminophen 5-325 mg tablet 1 tab PO TID PRN (Reason: pain) Qty: 1 0RF Patient Comments: takes prn tramadol 100 mg tablet 100 mg PO Q6H PRN (Reason: pain) 7 Days Qty: 28 0RF atorvastatin 80 mg tablet 80 mg PO QHS Qty: 90 3RF ipratropium-albuterol 0.5 mg-3 mg(2.5 mg base)/3 mL solution for nebulization 3 ml inhalation Q4H PRN PRN (Reason: SOB &/OR WHEEZING) Qty: 180 6RF albuterol sulfate [Ventolin HFA] 90 mcg/actuation HFA aerosol inhaler 2 puff inhalation Q4H PRN (Reason: shortness of breath or wheezing) Qty: 18 6RF Trelegy Ellipta 200-62.5-25 mcg blister with device 1 inh inhalation DAILY Qty: 60 11RF Primary Care Provider: Nate Gray Referrals: Nate Gray MD [Primary Care Provider] - Print Language: Syriac Disposition Disposition: Acute Care Hospital Discharge Location: [facility] Discharge Date/Time: 03/10/25 10:15
[2025-03-10] MEDS: 0.9% Normal Saline (1000mL) 1,000 ML 1000 ML IV (09:03)
[2025-03-10] MEDS: Ondansetron 4 MG/2 ML Vial IV (09:03)
[2025-03-10] MEDS: fentaNYL 100 MCG/2 ML Ampul 50 MCG IV (09:04)
[2025-03-10 09:10] LABS: Hemoglobin 8.3 g/dL (12.0-15.0); Mean Corp Hgb Conc 30.7 g/dL (32-36); Mean Corpuscular Hgb 26.7 pg (27.0-32.0); Mean Corpuscular Volume 86.8 fL (81-99); Mean Platelet Vol. 8.8 fl (6.2-12.0); Platelet Count 528 K/mm3 (150-450); RBC Distribution Width CV 18.6 % (11.6-14.6); RBC Distribution Width SD 59.7 fl (35.1-43.9); Red Blood Count 3.11 M/mm3 (4.2-5.4); White Blood Count 21.4 K/mm3 (4.4-11.0)
[2025-03-10] MEDS: Lorazepam 2 MG/ML WCH Syringe 0.5 MG IV (09:16)
[2025-03-10 09:21] VITALS: BP 123/71; PULSE 94; RESP 18; O2SAT 96
[2025-03-10] MEDS: VIAFLEX IV (09:25)
[2025-03-10] MEDS: HUM PROTHROMBIN CPLX LANS IV (09:25)
[2025-03-10 09:30] VITALS: BP 123/71; PULSE 94; RESP 18; O2SAT 96
[2025-03-10] MEDS: HYDROmorphone 0.5 MG/0.5 ML SYRINGE IV (09:31)
[2025-03-10 09:49] LABS: Anion Gap 11 (5-15); BUN 10 mg/dL (4-19); BUN/Creat Ratio 10.4 RATIO (10-20); Calcium,Total 8.7 mg/dL (7.6-11.0); Chloride 101 mmol/L (98-108); Creatinine, Serum 0.93 mg/dL (0.70-1.20); EST Glomerular Filtration Rate 66 (>60); Glucose 107 mg/dL (70-99); Potassium 4.1 mmol/L (3.3-5.1); Sodium Level 138 mmol/L (133-145)
[2025-03-10 09:50] LABS: Lactic Acid 1.9 mmol/L (0.0-2.0)
[2025-03-10 10:07] VITALS: BP 122/80; PULSE 93; RESP 18; TEMP 36.6; O2SAT 97
== END 2025-03-10 10:15 | disposition short-term general hospital (02) ==
PROVIDERS: Emergency Provider Emergency Medicine; PCP Internal Medicine; Visit Provider Emergency Medicine
DX: S81.802A Unspecified open wound, left lower leg, initial encounter (principal); J96.11 Chronic respiratory failure with hypoxia; J44.9 Chronic obstructive pulmonary disease, unspecified; I95.9 Hypotension, unspecified; I73.9 Peripheral vascular disease, unspecified; F41.9 Anxiety disorder, unspecified; F17.210 Nicotine dependence, cigarettes, uncomplicated; Z79.01 Long term (current) use of anticoagulants; X58.XXXA Exposure to other specified factors, initial encounter
CPT/HCPCS: 80048; 83605; 85027; 86850; 86900; 86901; 93005; 96365; 96375; 99284; A4216; J2405; J7165

== ENCOUNTER → 2025-04-16 | Outpatient (CLI) | payer MEDICARE, SELFPAY ==
--- NOTE | 2025-04-16 13:58 | ADUL_ITS ---
Reason For Study Reason For Study: S/P Lt EIA to PFA BPG Left Velocities Lt EIA to PFA BPG with cadaver vessel. Distal artery / anastomosis not well visualized. Lt Exteral Iliac A - 106.9 cm/s Prox Anastomosis - 324.5 cm/s Prox BPG - 171.1 cm/s Mid BPG - 157.2 cm/s Dist BPG - 131.5 cm/s Dist Anastomosis - 124.2 cm/s Vessel Distal to Anastomosis - 104.3 cm/s. VL/US Art Duplex Unilat Lower Ext Interpretation Summary Left iliac-profunda bypass patent with >75% stenosis at proximal anastomosis. P reserved velocities throughout remainder of graft. Ordering Physician: Ella Rosales Referring Physician: Nate Gray M.D. Performed By: Sam Mi RVT
== END | disposition home or self-care (01) ==
LOC: CVS 13:57
PROVIDERS: PCP Internal Medicine; Referring Provider Physician Assistant; Visit Provider Physician Assistant
DX: Z48.812 Encounter for surgical aftercare following surgery on the circulatory system (principal)
CPT/HCPCS: 93926

== ENCOUNTER → 2025-06-23 | Outpatient (CLI) | payer MEDICARE, SELFPAY ==
--- NOTE | 2025-06-23 14:09 | VDLE_ITS ---
Reason For Study Reason For Study: RLE SWELLING RIGHT LEFT GSV is normal. CFV is compressible, spontaneous, phasic, competent, CFV is compressible, spontaneous, phasic, competent and demonstrates normal augmentation. and demonstrates normal augmentation. FV is compressible, spontaneous, phasic, competent and demonstrates normal augmentation. POP V is compressible, spontaneous, phasic, competent and demonstrates normal augmentation. Anechoic NONVASCULAR structure measing 2.23cm x 2.86cm noted in the RT POP FOSSA SPACE. T/P Trunk is compressible. PTV is compressible. RT PerV is compressible. Procedure This is a venous duplex using B-mode, color flow and spectral Doppler. Exam performed in department. A preliminary report was called and/or faxed to Vascular surgery @ [phone] @ 14:30. VL/Venous Duplex US, Unilateral Interpretation Summary Deep veins of the right lower extremity are patent and compressible segmentally . There is no evidence of right lower extremity deep vein thrombosis. The right great saphenous vein appears patent a nd compressible segmentally. Anechoic nonvascular structure measuring 2.23cm x 2.86cm noted in the right pop liteal fossa. Ordering Physician: Ella Rosales Referring Physician: Nate Gray Performed By: Sylvia Huber RDCS, RVT
== END | disposition home or self-care (01) ==
LOC: CVS 14:09
PROVIDERS: PCP Internal Medicine; Referring Provider Physician Assistant; Visit Provider Physician Assistant
DX: M79.604 Pain in right leg (principal); I82.409 Acute embolism and thrombosis of unspecified deep veins of unspecified lower extremity; M79.89 Other specified soft tissue disorders
CPT/HCPCS: 93971

== ENCOUNTER → 2025-10-05 | Outpatient (CLI) | payer MEDICARE, SELFPAY ==
--- NOTE | 2025-10-05 08:04 | CT_ITS ---
PROCEDURE: CHEST WITHOUT CONTRAST 10/05/2025 REASON FOR EXAM: SMOKER WITH NODULES Pulmonary nodules. TECHNIQUE: Chest CT without contrast. Coronal and Sagittal reconstruction series were provided. One or more dose reduction techniques were used (e.g., Automated exposure control, adjustment of the mA and/or kV according to patient size, use of iterative reconstruction technique RADIATION DOSE SUMMARY: CTDlvol: 15 mGy DLP: DLP 518.3 mGycm COMPARISON: Chest CT January 2025. FINDINGS: Thyroid gland: Negative. Lungs: Irregular subpleural lesion described overlying the right lower lobe is unchanged and is likely scarring. Another subpleural lesion in the left upper lobe best seen on image 65 is also stable. Emphysematous changes. No new pulmonary nodules or masses. Pleura: As described above subpleural opacity overlies the right lower lobe. Negative for pleural effusion or pneumothorax. Airways: Imaged bronchi and trachea removednegative. Mediastinum: Negative for mediastinal mass. Lymph nodes: Negative for axillary, mediastinal or hilar adenopathy. Heart and Vasculature: Ascending thoracic aorta measures 3.3 by 3.2 cm. Heart normal size. Moderate vascular calcifications of the thoracic aorta. Coronary Artery Calcifications: Severe vascular calcifications of the coronary arteries Upper Abdomen: Gallstones. Surgical clips/alexandro adjacent to the splenic hilum Hardware: None. Bones: Negative for fracture. Age-appropriate degenerative changes of the thoracic spine. CT/Chest without Contrast IMPRESSION: Emphysematous changes unchanged. Right lower lobe pleural opacity likely scarring. Left lower lobe subpleural nodule stable. Recommend six-month follow-up chest CT to confirm stability. Reading Location: [id number]
== END | disposition home or self-care (01) ==
LOC: CT 08:03
PROVIDERS: PCP Internal Medicine; Referring Provider Nurse Practitioner Acute Care; Visit Provider Nurse Practitioner Acute Care
DX: R91.8 Other nonspecific abnormal finding of lung field (principal)
CPT/HCPCS: 71250